=== PATIENT | female | born 1960 | race Caucasian/White ===

== ENCOUNTER 2025-04-22 02:51 | Inpatient (IN) | payer SELFPAY ==
--- OUTSIDE RECORDS SUMMARY | 2018-08-23 07:11 | XMS_ITS | Continuity of Care Document ---
Author Organization [facility] Address [address] [place] [address] Phone Care Team Providers Care Stationary Engineer Supervisor Name Role Phone Unavailable Unavailable Unavailable Medications Medication Instructions Dosage Effective Dates (start - stop) Status Comments doxycycline monohydrate 100 mg capsule take 1 capsule by oral route 2 times every day 100 MG - Active prednisone 10 mg tablet take 3 tablet by oral route every day 30 MG - Active lisinopril 20 mg tablet take 1 tablet by oral route every day 20 MG - Active amiodarone 200 mg tablet take 2 tablet by oral route every day 400 MG - Active AMLODIPINE BESYLATE (unknown strength) take 1 tablet by oral route every day Not Available - Active XARELTO (unknown strength) take 1 tablet by oral route 2 times every day Not Available - Active Procedures Procedure Date Offic/outpt E&m Estab Mod-hi 2 19 Services provided in an urgent care [facility] Office Visit 019 Ecg-routine 12 Lead; W/intrpt 7 Offic/outpt E&m Estab Mod-hi 2 17 Service(s) provided in the office during regularly Services provided in an urgent care [facility] Office Visit 017 Offic/outpt E&m Estab Low-mod 7 Rad Exam Chest 2 Views Front & 17 Offic/outpt E&m Estab Mod-hi 2 17 Services provided in an urgent care [facility] Office Visit 017 Offic/outpt E&m Estab Mod-hi 2 17 Services provided in an urgent care [facility] Office Visit 017 Offic/outpt E&m Estab Mod-hi 2 17 Services provided in an urgent care cent er [facility] Office Visit 017 Handl/convey Specmn-offic To L 17 Routine Venipunct/finger/heel 7 Offic/outpt E&m Estab Mod-hi 2 17 Services provided in an urgent care cent er [facility] Office Visit 017 Offic/outpt E&m Estab Mod-hi 2 16 Services provided in an urgent care [facility] Office Visit 016 Offic/outpt E&m Estab Mod-hi 2 16 [facility] Office Visit 016 Ecg-routine 12 Lead; W/intrpt 6 Offic/outpt E&m New Mod Sever 6 Services provided in an urgent care [facility] Office Visit 016 [facility] Indiviual Enrollment Advance Directives Directive Yes / No Effective Date File Name No Information Encounters Encounter Description Practice Location Reason(s) For Visit Diagnoses Date Provider Providers Copied on Encounter [facility], [address], [place], [place], [id number] , tel: [phone] [facility] No Information 9 No Information Offic/outpt E&m Estab Mod-hi 2 [facility], [address], [place], [place], [id number] , tel: [phone] [facility] sinus symptoms (chief complaint) ACUTE MAXILLARY SINUSITIS, UNSPECIFIED 9 Ronny Bennett. [address] [facility], [place], [address], [place]. tel:[phone] Offic/outpt E&m Estab Mod-hi 2 [facility], [address], [place], [place], [id number] , [place] tel: [phone] [facility] palpitations (chief complaint) Paroxysmal atrial fibrillationEl evated blood pressure readingSOB (shortness of breath)Elevate d blood pressure reading 7 Ronny Bennett. [address] [place] [address], [address], [place]. tel:[phone] Offic/outpt E&m Estab Low-mod [facility], [address], [place], [place], [id number] , [place] tel: [phone] [facility] cough (chief complaint) No Information 7 [facility]. [address] [place], [address], [place]. tel:[phone] Offic/outpt E&m Estab Mod-hi 2 [facility], [address], [place], [place], [address] , [place] tel: [phone] [facility] high blood pressure (chief complaint) ANXIETY DISORDER, UNSPECIFIED ANXIETY DISORDER TYPEESSENTIAL HYPERTENSION 7 No Information Offic/outpt E&m Estab Mod-hi 2 [facility], [address], [place], [place], [id number] , [place] tel: [phone] [facility] BP check (chief complaint) ESSENTIAL HYPERTENSION No Information Offic/outpt E&m Estab Mod-hi 2 [facility], [address], [place], [place], [id number] , [place] tel: [phone] [facility] high blood pressure (chief complaint) ANXIETY DISORDER, UNSPECIFIED ANXIETY DISORDER TYPEESSENTIAL HYPERTENSION 7 No Information Offic/outpt E&m Estab Mod-hi 2 [facility], [address], [place], [place], [id number] , [place] tel: [phone] [facility] high blood pressure (chief complaint) ANXIETY DISORDER, UNSPECIFIED ANXIETY DISORDER TYPEESSENTIAL HYPERTENSION 7 No Information Offic/outpt E&m Estab Mod-hi 2 [facility], [address], [place], [place], [address] , [place] tel:[phone] [facility] high blood pressure (chief complaint) ANXIETY DISORDER, UNSPECIFIED ANXIETY DISORDER TYPEESSENTIAL HYPERTENSIONHe art palpitations 6 No Information Offic/outpt E&m Estab Mod-hi 2 [facility], [address], [place], [place], [address] , [place] tel: [phone] [facility] No Information 6 No Information Offic/outpt E&m [facility], [address], [place], [place], [address] , [place] tel: [phone] [facility] palpitations (chief complaint) Heart palpitationsES SENTIAL HYPERTENSIONAN XIETY DISORDER, UNSPECIFIED ANXIETY DISORDER TYPE 6 No Information Family History Family Member Type Diagnosis Age At Onset Mother Problem (finding) Mother Problem (finding) hodgkins disease Payers Payer name Insurance type Covered alliance party ID Authoriza tisun(s) [facility] Advantage CI [id number] Social History Type Description Quantity Date Captured Comments Sex Female Smoking Status No Information Chief Complaint And Reason For Visit No Information Reason For Referral Reason For Referral No Information Plan Of Treatment Date Type Action Status Referral Ordered: Referral: Emergency Department. Assume care. Appointment date/timeframe: Today ordered Referral Referred To: Dr. Karyna guadalupe Ordered: Referral: Dr. Karyna paris Evaluate and treat. ordered History Of Present Illness Encounter Date Complaint History Of Prese nt Illness No Information Functional Status Date Functional Assessmen t No Information Instructions Date Instruction Additional Infor mation No Information Assessments Type Assessment Date No Information Patient Care Teams Name Effective Dates (start - stop) Status Members No Information
--- OUTSIDE RECORDS SUMMARY | 2018-08-23 07:11 | XMS_ITS | Continuity of Care Document ---
Author Organization [facility] Address [address] [place] [address] Phone Care Team Providers Care Medical Director Of Hospice Name Role Phone Unavailable Unavailable Unavailable Medications [...] 19 Services provided in an urgent care [facility] Office Visit 019 Ecg-routine 12 Lead; W/intrpt 7 Offic/outpt E&m Estab Mod-hi 2 17 Service(s) provided in the office during regularly Services provided in an urgent care [facility] Office Visit 017 Offic/outpt E&m Estab Low-mod 7 Rad Exam Chest 2 Views Front & 17 Offic/outpt E&m Estab Mod-hi 2 17 Services provided in an urgent care [facility] Office Visit 017 Offic/outpt E&m Estab Mod-hi 2 17 [facility] 017 Offic/outpt E&m Estab Mod-hi 2 17 Services provided in an urgent care cent er [facility] Office Visit 017 Handl/convey Specmn-offic To L 17 Routine Venipunct/finger/heel 7 Offic/outpt E&m Estab Mod-hi 2 17 Services provided in an urgent care cent er [facility] Office Visit 017 Offic/outpt E&m Estab Mod-hi 2 16 Services provided in an urgent care [facility] 016 Offic/outpt E&m Estab Mod-hi 2 16 [facility] Office Visit 016 Ecg-routine 12 Lead; W/intrpt 6 Offic/outpt E&m New Mod Sever 6 Services provided in an urgent care [facility] Office Visit 016 [facility] Indiviual Enrollment Advance Directives Directive Yes / No Effective Date File Name No Information Encounters Encounter Description Practice Location Reason(s) For Visit Diagnoses Date Provider Providers Copied on Encounter [facility], [address], [place], [place], [id number] , tel: [phone] [facility] No Information 9 No Information Offic/outpt E&m Estab Mod-hi 2 [facility], [address], [place], [place], [address] , tel: [phone] [facility] sinus symptoms (chief complaint) ACUTE MAXILLARY SINUSITIS, UNSPECIFIED 9 Ronny Bennett. [address] [facility], [place], [address], [place]. tel:[phone] Offic/outpt E&m Estab Mod-hi 2 [facility], [address], [place], [place], [id number] , [place] tel: [phone] [facility] palpitations (chief complaint) Paroxysmal atrial fibrillationEl evated blood pressure readingSOB (shortness of breath)Elevate d blood pressure reading 7 Ronny Bennett. [address] [place] [address], [address], [place]. tel:[phone] Offic/outpt E&m Estab Low-mod [facility], [address], [place], [place], [address] , [place] tel: [phone] [facility] cough (chief complaint) No Information 7 [facility]. [address] [place], [address], [place]. tel:[phone] Offic/outpt E&m Estab Mod-hi 2 [facility], [address], [place], [place], [address] , [place] tel: [phone] [facility] high blood pressure (chief complaint) ANXIETY DISORDER, UNSPECIFIED ANXIETY DISORDER TYPEESSENTIAL HYPERTENSION 7 No Information Offic/outpt E&m Estab Mod-hi 2 [facility], [address], [place], [place], [address] , [place] tel: [phone] [facility] BP check (chief complaint) ESSENTIAL HYPERTENSION No Information Offic/outpt E&m Estab Mod-hi 2 [facility], [address], [place], [place], [id number] , [place] tel: [phone] [facility] high blood pressure (chief complaint) ANXIETY DISORDER, UNSPECIFIED ANXIETY DISORDER TYPEESSENTIAL HYPERTENSION 7 No Information Offic/outpt E&m Estab Mod-hi 2 [facility], [address], [place], [place], [address] , [place] tel: [phone] [facility] high blood pressure (chief complaint) ANXIETY DISORDER, UNSPECIFIED ANXIETY DISORDER TYPEESSENTIAL HYPERTENSION 7 No Information Offic/outpt E&m Estab Mod-hi 2 [facility], [address], [place], [place], [address] , [place] tel:[phone] [facility] high blood pressure (chief complaint) ANXIETY DISORDER, UNSPECIFIED ANXIETY DISORDER TYPEESSENTIAL HYPERTENSIONHe art palpitations 6 No Information Offic/outpt E&m Estab Mod-hi 2 [facility], [address], [place], [place], [address] , [place] tel: [phone] [facility] No Information 6 No Information Offic/outpt E&m [facility], [address], [place], [place], [address] , [place] tel: [phone] [facility] palpitations (chief complaint) Heart palpitationsES SENTIAL HYPERTENSIONAN XIETY DISORDER, UNSPECIFIED ANXIETY DISORDER TYPE 6 No Information Family History Family Member Type Diagnosis Age At Onset Mother Problem (finding) hodgkins disease Mother Problem (finding) Payers Payer name Insurance type Covered democrat ID Authoriza tisun(s) [facility] Advantage CI [id number] Social History Type Description Quantity Date Captured [...]
--- OUTSIDE RECORDS SUMMARY | 2021-06-23 12:57 | XMS_ITS | Continuity of Care Document ---
Author Organization [facility] Address [address] [place] [address] Phone Care Team Providers Care Portable Machine Cutter Name Role Phone Rubens Méndez Unavailable Unavailable Allergies, Adverse Reactions, Alerts Substance Reaction Status Criticality No Known Allergies Active No Inform ation Medications Medication Instructions Dosage Effective Dates (start - stop) Status Comments LISINOPRIL (unknown strength) take 1 tablet by oral route every day Not Available - Active Procedures Procedure Date Quidel Sol 2 SARS Antigen BISI test Apr Offic/outpt E&m New Mod Sever 2 Services provided in an urgent care cent er Advance Directives Directive Yes / No Effective Date File Name No Information Encounters Encounter Description Practice Location Reason(s) For Visit Diagnoses Date Provider Providers Copied on Encounter [facility], [address], [place], [place], [id number], [place] tel:[phone] [facility] No Information 2 Drake Art. [address] [place], [address], [place]. tel:[phone] Offic/outpt E&m [facility], [address], [place], [place], [id number], [place] tel:[phone] [facility] Asymptomatic COVID evaluation (chief complaint) Contact with and (suspected) exposure to COVID-19 2 No Information Family History Family Member Type Diagnosis Age At Onset No Information Payers Payer name Insurance type Covered alliance party ID Authoriza tion(s) BCBS of [facility] [id number] Social History Type Description Quantity Date Captured Comments Alcohol Use Details Unknown Caffeine Use Details Unknown Tobacco Use Status No Information Smoking Status No Information Sex Female Chief Complaint And Reason For Visit No Information Reason For Referral Reason For Referral No Information Plan Of Treatment Date Type Action Status Future Order: Lab Order COVID-19 (Quidel Sol 2 SARS Antigen BISI test) ([id number]), Ordered on: Ordered History Of Present Illness Encounter Date Complaint History Of Prese nt Illness Asymptomatic COVID evaluation Co ntext: Known exposure to COVID-19 at work/school.She denies any presenting symptoms. The patient does not present with abdominal pain, anorexia, arthralgia, back pain, chills, cough, diarrhea, fatigue, fever, generalized weakness, headache, loss of smell, lymphadenopathy, myalgia, nasal congestion, nausea, runny nose, shortness of breath, sore throat, change in taste or vomiting. Risk factors include Hypertension but exclude Age > 65, BMI > 40, Diabetes. Denies relieving factors. Functional Status Date Functional Assessmen t No Information Instructions Date Instruction Additional Infor gris Plenty of fluids. Re turn for worsening symptoms including fever, back pain, nausea, vomiting. Related to Contact with and (suspected) exposure to COVID-19 Assessments Type Assessment Date No Information Patient Care Teams Name Effective Dates (start - stop) Status Members No Information
--- OUTSIDE RECORDS SUMMARY | 2021-06-23 12:57 | XMS_ITS | Continuity of Care Document ---
Author Organization [facility] Address [address] [place] [address] Phone Care Team Providers Care Pyrotechnics Press Tender Name Role Phone Rubens Méndez Unavailable Unavailable [...] [facility], [address], [place], [place], [id number], [place] tel:[phone] [facility] No Information 2 [address] [place], [address], [place]. tel:[phone] Offic/outpt E&m [facility], [address], [place], [place], [id number], [place] tel:[phone] [facility] Asymptomatic COVID evaluation (chief complaint) Contact with and (suspected) exposure to COVID-19 2 No Information Family History Family Member Type Diagnosis Age At Onset No Information Payers Payer name Insurance type Covered republican ID Authoriza tion(s) BCBS of [facility] [id number] Social History Type Description Quantity Date Captured Comments Alcohol Use Details Unknown Caffeine Use Details Unknown Tobacco Use Status No Information Smoking Status No Information Sex Female Chief Complaint And Reason For Visit No Information Reason For Referral Reason For Referral No Information Plan Of Treatment Date Type Action Status Future Order: Lab Order COVID-19 (Quidel Sol 2 SARS Antigen BISI test) ([id number]), Ordered on: Ordered History Of Present Illness [...]
--- OUTSIDE RECORDS SUMMARY | 2024-01-16 04:45 | XMS_ITS ---
Author [facility] Address [address] [facility] [address] [place], [place] [id number] Care Team Providers Care Insurance Consultant Name Role Phone Wilson Leahy Unavailable [phone] Allergies No Known Allergies Results Component Value Reference Range Notes P-Comprehensive Metabolic Pa alexey (CMP) Reviewed date:01/17/2024 08:24:21 AM Interpretation:gluc 113 Performing Lab: Notes/Report: Test performed by [facility] [address] , [address], [place] [address] Jigar Darling MD, [place] CLIA: [id number] Sodium 143 135-145 mmol/L Potassium 4.1 3.5-5.3 mmol/L Chloride 106 97-108 mmol/L CO2 26 22-32 mmol/L Glucose 113 65-99 mg/dL BUN 22 8-23 mg/dL Creatinine 0.78 0.50-1.00 mg/dL Calcium 9.2 8.6-10.4 mg/dL eGFR by Creatinine 85 >59 mL/min/1.73m2 Protein 7.0 6.0-8.3 g/dL Albumin 4.2 3.5-5.3 g/dL Alkaline Phosphatase 99 35-121 IU/L ALT (SGPT) 22 <5-47 IU/L AST (SGOT) 13 <5-40 IU/L Bilirubin, Total 0.5 <0.2-1.2 mg/dL A/G Ratio 1.5 1.1-2.5 P-Lipid Panel Reviewed date:01/17/2024 08:24:21 AM Interpretation:trigs 155, non-hdl 134 Performing Lab: Notes/Report: Test performed by [facility] [address] [facility] , [address], [place] [address] Jigar Darling MD, [place] CLIA: [id number] Cholesterol 179 <200 mg/dL Triglycerides 155 <150 mg/dL HDL Cholesterol 45 >39 mg/dL Cholesterol / HDL Ratio 3.98 0.00-4.44 Ratio Non-HDL Cholesterol 134 <130 mg/dL LDL Cholesterol (Calculation) 103 <130 mg/dL LDL Cholesterol Levels* Less than 100 mg/dL Optimal 100 to 129 mg/dL Near Optimal/ Above Optimal 130 to 159 mg/dL Borderline High 160 to 189 mg/dL High 190 mg/dL and above Very High * Categories as recommended by the 2004 ATPIII guidelines LDL/HDL Ratio 2.3 <3.3 Ratio LDL Cholesterol Patient History Test Date: 07/17/2022 LDL Results: 168 Units: mg/dL % Change: - Test Date: 01/16/2024 LDL Results: 103 Units: mg/dL % Change: -38% REASON FOR VISIT 6 months Medications Medication SIG (Take, Route, Frequency, Duration) Notes Start Date End Date Status Atorvastatin Calcium 40 MG 1 tab(s) oral ly once a day 08/25/2022 Active dilTIAZem HCl ER 240 MG 1 cap(s) orally once a day 07/17/2022 Active Lisinopril 20 MG 1 tab(s) orally once a day Active Aspirin 81 MG 1 tab(s) orally once a day Active Vital Signs Weight 239.8 lbs 01/16/2024 Blood pressure systolic 144 mm Hg 01/16/20 24 Blood pressure diastolic 90 mm Hg 024 Heart Rate 96 /min 01/16/2024 Height 64 in 01/16/2024 BMI 41.16 kg/m2 01/16/2024 Encounters Encounter Location Date Provider Diagnosis [facility] [address] [facility] [address] [facility] [address] [place], [place] [id number] 01/16/2024 Wilson Leahy Primary hypertension I10 ; Hyperlipidemia LDL goal <130 E78.5 and Atrial fibrillation, unspecified type I48.91 Assessments Encounter Date Diagnosis (ICD Code) Assessment Notes Treatment Notes Treatment Clinical Notes Section Notes 01/16/2024 Primary hypertension (ICD-10 - I10) 01/16/2024 Hyperlipidemia LDL goal <130 (ICD-10 - E78.5) 01/16/2024 Atrial fibrillation, unspecified type (ICD-10 - I48.91) Plan Of Treatment Medication Medication Name Sig Start Date Stop Date Notes Atorvastatin Calcium 40 MG 1 tab(s) orally once a day 07/30 dilTIAZem HCl ER 240 MG 1 cap(s) orally once a day 023 Lisinopril 20 MG 1 tab(s) orally once a day Aspirin 81 MG 1 tab(s) orally once a day Next Appt Details Follow Up: 6 Months, Reason: Provider Name:Wilson valente, 07/14/2025 09:00:00 AM, [address] [facility] 36 [facility], [address], [place], [id number], Progress Notes * ROXANA PHAN:[birth year] (64 yo F)Acc No.[id number]:01/16/2024 Progress Notes Patient: ELVI OHARA Provider: Jimmy Leahy M.D. :1960 A ge:63 Y S ex:Female Date:01/16/2024 [id number] Subjective: * Chief Complaints: * 1 . 6 months. * HPI: C ardiology: 63 year old female presents with c/o Blood Pressure Elevated?Pt here for 6 mo f/u on hypertension, states she is doing well and does not have concerns. c/o Hyperlipidemia P t is fasting today. * ROS: D ERMATOLOGY: no R jorge. n o H zan. G ASTROENTEROLOGY: no N ausea. n o V omiting. U ROLOGY: no D ifficulty urinating. n o B lood in urine. * Medical History: H ypertension, Atrial fibrillation, 2016, uses Aspirin for anticoagulation, Hiatal Hernia, 08/2021, Fibroids, Kidney stones, Renal Cell Cancer, 25 pack year smoking history as of 2022, quit in 2012, Hyperlipidemia, Osteoarthritis. * Surgical History: P artial Nephrectomy , Incisional Hernia Repair , Colonoscopy . * Hospitalization/Major Diagno stic Procedure: D enies Past Hospitalization. * Family History: M other: diagnosed with Hypertension, Cancer. 2 brother(s) . 2 son(s) , 1 daughter(s) . .? * Social History: C URRENT TOBACCO USE: No . C affeine: yes, frequency: 1 daily. Alcohol: no. * Medications: T aking Aspirin 81 MG Tablet Delayed Release 1 tab(s) orally once a day , Taking Lisinopril 20 MG Tablet 1 tab(s) orally once a day , Taking dilTIAZem HCl ER 240 MG Capsule Extended Release 24 Hour 1 cap(s) orally once a day , Taking Atorvastatin Calcium 40 MG Tablet 1 tab(s) orally once a day , Medication List reviewed and reconciled with the patient * Allergies: N .K.D.A. Objective: * Vitals: W t:239.8, Temp:98.0, BP:144/90, HR:96, Nurse:brock, Ht: 64, BMI:41.16. * Examination: C ardiology: General Appearance: p leasant, NAD. H eart sounds: R RR. L ungs: c lear, no rales or wheezes. P eripheral pulses: 2 plus bilateral.? Assessment: * Assessment: 1. P rimary hypertension - I10 (Primary) 2 . H yperlipidemia LDL goal <130 - E78.5 3 . A trial fibrillation, unspecified type - I48.91 Plan: * Treatment: Value Reference Range A /G Ratio 1.5 1.1-2.5 - * A lbumin 4.2 3.5-5.3 - g/dL * A lkaline Phosphatase 99 35-121 - IU/L * A LT (SGPT) 22 <5-47 - IU/L * A ST (SGOT) 13 <5-40 - IU/L * B ilirubin, Total 0.5 <0.2-1.2 - mg/dL * B UN 22 8-23 - mg/dL * C alcium 9.2 8.6-10.4 - mg/dL * C hloride 106 97-108 - mmol/L * C O2 26 22-32 - mmol/L * C reatinine 0.78 0.50-1.00 - mg/dL * G lucose 113 H 65-99 - mg/dL * P otassium 4.1 3.5-5.3 - mmol/L * S odium 143 135-145 - mmol/L * P rotein 7.0 6.0-8.3 - g/dL * e GFR by Creatinine 85 >59 - mL/min/1.73m2 * Jenifer Menjivar 01/17/2024 8:24: 12 AM >See phone encounter ?LAB: P-Lipid Panel (Collection Date & Time - 01/16/2024 09:10 AM)?trigs 155, non-hdl 134* Value Reference Range C holesterol / HDL Ratio 3.98 0.00-4.44 - Ratio * C holesterol 179 <200 - mg/dL * H DL Cholesterol 45 >39 - mg/dL * L DL Cholesterol (Calculation) 103 <130 - mg/d L * L DL/HDL Ratio 2.3 <3.3 - Ratio * N on-HDL Cholesterol 134 H <130 - mg/dL * T riglycerides 155 H <150 - mg/dL * Jenifer Menjivar 01/17/2024 8:24: 12 AM >See phone encounter 2.?Hyperlipidemia LDL goal <130? Continue Atorvastatin Calcium Tablet, 40 MG, 1 tab(s), orally, once a day.?LAB: P-Comprehensive Metabolic Panel (CMP) (Collection Date & Time - 01/16/2024 09:10 AM)?gluc 113* Value Reference Range A /G Ratio 1.5 1.1-2.5 - * A lbumin 4.2 3.5-5.3 - g/dL * A lkaline Phosphatase 99 35-121 - IU/L * A LT (SGPT) 22 <5-47 - IU/L * A ST (SGOT) 13 <5-40 - IU/L * B ilirubin, Total 0.5 <0.2-1.2 - mg/dL * B UN 22 8-23 - mg/dL * C alcium 9.2 8.6-10.4 - mg/dL * C hloride 106 97-108 - mmol/L * C O2 26 22-32 - mmol/L * C reatinine 0.78 0.50-1.00 - mg/dL * G lucose 113 H 65-99 - mg/dL * P otassium 4.1 3.5-5.3 - mmol/L * S odium 143 135-145 - mmol/L * P rotein 7.0 6.0-8.3 - g/dL * e GFR by Creatinine 85 >59 - mL/min/1.73m2 * OttoJenifer 01/17/2024 8:24: 12 AM >See phone encounter ?LAB: P-Lipid Panel (Collection Date & Time - 01/16/2024 09:10 AM)?trigs 155, non-hdl 134* Value Reference Range C holesterol / HDL Ratio 3.98 0.00-4.44 - Ratio * C holesterol 179 <200 - mg/dL * H DL Cholesterol 45 >39 - mg/dL * L DL Cholesterol (Calculation) 103 <130 - mg/d L * L DL/HDL Ratio 2.3 <3.3 - Ratio * N on-HDL Cholesterol 134 H <130 - mg/dL * T riglycerides 155 H <150 - mg/dL * Jenifer Menjivar 01/17/2024 8:24: 12 AM >See phone encounter 3.?Atrial fibrillation, unspecified type? Continue dilTIAZem HCl ER Capsule Extended Release 24 Hour, 240 MG, 1 cap(s), orally, once a day; Continue Aspirin Tablet Delayed Release, 81 MG, 1 tab(s), orally, once a day.?? * Follow Up: 6 Months * Images: Billing Information: * Visit Code: [id number] Office Visit, Est Pt., Level 2. * Procedure Codes: * Electronic signature of Ashley Leahy MD on 04/22/2025 at 04:54 AM EST Sign off status: Pending * Provider: Jimmy Leahy M.D. Date: 0 01/16/2024 Generated for Darnell smiley/Lexus/Malaitting on: 1 06/23/2024 04:54 AM EST History and Physical Notes * HPI (History of Present Illness) Category Sub-Category Detail Notes Category Not es Cardiology Blood Pressure Elevated Pt here for 6 mo f/u on hypertension, states she is doing well and does not have concerns Hyperlipidemia Pt is fasting today Examination Category Sub-Category Detail Notes Category Not es Cardiology Lungs: clear, no rales or wheezes Heart sounds: RRR Peripheral pulses: 2 plus bilateral General Appearance: pleasant, NAD
--- OUTSIDE RECORDS SUMMARY | 2024-07-16 04:30 | XMS_ITS ---
Author Organization [place] Address [address] [facility] [address] [place] [id number] Care Team Providers Care Food Service Substitute Name Role Phone [place], Wilson Unavailable [phone] Allergies No Known Allergies REASON FOR VISIT 6 months Medications Medication SIG (Take, Route, Frequency, Duration) Notes Start Date End Date Status Lisinopril 20 MG 1 tab(s) orally once a day; Duration: 90 days Active dilTIAZem HCl ER 240 MG 1 cap(s) orally once a day; Duration: 90 days Active Atorvastatin Calcium 40 MG 1 tab(s) oral ly once a day; Duration: 90 days Active Aspirin 81 MG 1 tab(s) orally once a day Active Vital Signs Weight 241.6 lbs 07/16/2024 Blood pressure systolic 140 mm Hg 07/17/19 25 Blood pressure diastolic 90 mm Hg 025 Heart Rate 93 /min 07/16/2024 Height 64 in 07/16/2024 BMI 41.47 kg/m2 07/16/2024 Encounters Encounter Location Date Provider Diagnosis [facility] [address] [facility] [address] [place] [id number] 07/16/2024 Wilson Leahy Primary hypertension I10 ; Hyperlipidemia LDL goal <130 E78.5 ; Atrial fibrillation, unspecified type I48.91 and Snoring R06.83 Assessments Encounter Date Diagnosis (ICD Code) Assessment Notes Treatment Notes Treatment Clinical Notes Section Notes 07/16/2024 Primary hypertension (ICD-10 - I10) 07/16/2024 Hyperlipidemia LDL goal <130 (ICD-10 - E78.5) 07/16/2024 Atrial fibrillation, unspecified type (ICD-10 - I48.91) 07/16/2024 Snoring (ICD-10 - R06.83) Patient does not want to have a new sleep study now, would like to see report of previous study Plan Of Treatment Medication Medication Name Sig Start Date Stop Date Notes Lisinopril 20 MG 1 tab(s) orally once a day; Duration: 90 days dilTIAZem HCl ER 240 MG 1 cap(s) orally once a day; Duration: 90 days Atorvastatin Calcium 40 MG 1 tab(s) oral ly once a day; Duration: 90 days Treatment Notes Assessment Notes Snoring Patient does not wan t to have a new sleep study now, would like to see report of previous study Next Appt Details Follow Up: 6 Months fasting, Reason: Provider Name:Wilson Womack , 07/14/2025 09:00:00 AM, [address] [facility], [address] , [place], [place], [id number], Progress Notes * ELVI PHANDOB:[birth year] (64 yo F)Acc No.[id number]:07/16/2024 Progress Notes Patient: [place] QUENTIN ELVI Provider: Jimmy Leahy M.D. :1960 A ge:64 Y S ex:Female Date:07/16/2024 Address:[address] [place], [place] [id number] Subjective: * Chief Complaints: * 1 . 6 months. * HPI: C ardiology: 64 year old female presents with c/o Blood Pressure Elevated?Pt here for 6 mo f/u on hypertension, states she is doing well and does not have any concerns.? c/o Hyperlipidemia P t is fasting today. * ROS: D ERMATOLOGY: no R jorge. n o H zan. G ASTROENTEROLOGY: no N ausea. n o V omiting. P SYCHOLOGY: Sleep disturbances y es, s nores, thinks she may have sleep apnea, had a sleep study when she lived in [place]. U ROLOGY: no D ifficulty urinating. n o B lood in urine. * Medical History: H ypertension, Atrial fibrillation, 2017, uses Aspirin for anticoagulation, Hiatal Hernia, 08/2021, [...] cap(s) orally once a day , Taking Lisinopril 20 MG Tablet 1 tab(s) orally once a day , Taking Atorvastatin Calcium 40 MG Tablet 1 tab(s) orally once a day , Medication List reviewed and reconciled with the patient * Allergies: N .K.D.A. Objective: * Vitals: W t:241.6, Temp:98.0, BP:140/90, HR:93, Nurse:brock, Ht: 64, BMI:41.47. * Examination: C ardiology: General Appearance: p leasant, NAD. H eart sounds: R RR. L ungs: c lear, no rales or wheezes. P eripheral pulses: 2 plus bilateral.? Assessment: * Assessment: 1. P rimary hypertension - I10 (Primary) 2 . H yperlipidemia LDL goal <130 - E78.5 3 . A trial fibrillation, unspecified type - I48.91 4 . S felix - R06.83 Plan: * Treatment: 2. H yperlipidemia LDL goal <130 Refill Atorvastatin Calcium Tablet, 40 MG, 1 tab(s), orally, once a day, 90 days, 90 Tablet, Refills 1. 3. A trial fibrillation, unspecified type Refill dilTIAZem HCl ER Capsule Extended Release 24 Hour, 240 MG, 1 cap(s), orally, once a day, 90 days, 90 Capsule, Refills 1. 4. S felix Notes: Patient does not want to have a new sleep study now, would like to see report of previous study * Follow Up: 6 Months fasting * Images: Billing Information: * Visit Code: [id number] Office Visit, Est Pt., Level 2. * Procedure Codes: * Electronic signature of Ashley Leahy MD on 04/22/2025 at 04:55 AM EST Sign off status: Pending * Provider: Jimmy Leahy M.D. Date: 0 07/16/2024 Generated for Darnell smiley/Lexus/Malaitting on: 06/23/2024 04:55 AM EST History and Physical Notes * HPI (History of Present Illness) Category Sub-Category Detail Notes Category Not es Cardiology Blood Pressure Elevated Pt here for 6 mo f/u on hypertension, states she is doing well and does not have any concerns Hyperlipidemia Pt is fasting today Examination Category Sub-Category Detail Notes Category Not es Cardiology Lungs: clear, no rales or wheezes Heart sounds: RRR Peripheral pulses: 2 plus bilateral General Appearance: pleasant, NAD
--- OUTSIDE RECORDS SUMMARY | 2025-01-12 05:45 | XMS_ITS ---
Author Organization [facility] Address [address] [facility] [address] [place], [place] [id number] Care Team Providers Care Esl Instructor Name Role Phone Wilson Leahy Unavailable [phone] Allergies No Known Allergies Results Component Value Reference Range Notes P-Comprehensive Metabolic Pa alexey (CMP) Reviewed date:01/13/2025 12:35:44 PM Interpretation:cl 109, gluc 104 Performing Lab: Notes/Report: Test performed by [email or web address] [address] , [address], [place] [address] Jigar Darling MD, Customs Import Specialist CLIA: [id number] Sodium 144 135-145 mmol/L Potassium 4.1 3.5-5.3 mmol/L Chloride 109 97-108 mmol/L CO2 23 20-32 mmol/L Glucose 104 65-99 mg/dL BUN 20 8-23 mg/dL Creatinine 0.80 0.50-1.00 mg/dL Calcium 9.6 8.6-10.4 mg/dL eGFR by Creatinine 82 >59 mL/min/1.73m2 Protein 7.2 6.0-8.3 g/dL Albumin 4.4 3.5-5.3 g/dL Alkaline Phosphatase 105 35-121 IU/L ALT (SGPT) 27 <5-47 IU/L AST (SGOT) 19 <5-40 IU/L Bilirubin, Total 0.4 <0.2-1.2 mg/dL A/G Ratio 1.6 1.1-2.5 P-Lipid Panel Reviewed date:01/13/2025 12:35:44 PM Interpretation:trigs 168, non-hdl 145 Performing Lab: Notes/Report: Test performed by [facility] [address] [place] [address] , [address], [place] [address] Jigar Darling MD, Customs Import Specialist CLIA: [id number] Cholesterol 194 <200 mg/dL Triglycerides 168 <150 mg/dL HDL Cholesterol 49 >39 mg/dL Cholesterol / HDL Ratio 3.96 0.00-4.44 Ratio Non-HDL Cholesterol 145 <130 mg/dL LDL Cholesterol (Calculation) 111 <130 mg/dL LDL Cholesterol Levels* Less than 100 mg/dL Optimal 100 to 129 mg/dL Near Optimal/ Above Optimal 130 to 159 mg/dL Borderline High 160 to 189 mg/dL High 190 mg/dL and above Very High * Categories as recommended by the 2004 ATPIII guidelines LDL/HDL Ratio 2.3 <3.3 Ratio Test Date: 07/17/2022 LDL Results: 168 Units: mg/dL % Change: - Test Date: 01/16/2024 LDL Results: 103 Units: mg/dL % Change: -38% Test Date: 01/12/2025 LDL Results: 111 Units: mg/dL % Change: +7% LDL Cholesterol Patient History REASON FOR VISIT 6 month fasting checkup Medications Medication SIG (Take, Route, Frequency, Duration) Notes Start Date End Date Status Lisinopril 20 MG 1 tab(s) orally once a day; Duration: 90 days Active dilTIAZem HCl ER 240 MG 1 cap(s) orally once a day; Duration: 90 days Active Aspirin 81 MG 1 tab(s) orally once a day Not-Taking Atorvastatin Calcium 40 MG 1 tab(s) orally once a day; Duration: 90 days Active Problems Problem Type SNOMED Code ICD Code Onset Dates Problem Status W/U Status Risk Notes Problem Abnormal mammogram ([id number]) Abnormal mammogram (R92.8) Active confirmed Vital Signs Weight 240.6 lbs 01/12/2025 Blood pressure systolic 140 mm Hg 01/13/20 25 Blood pressure diastolic 80 mm Hg 025 Heart Rate 83 /min 01/12/2025 Height 64 in 01/12/2025 BMI 41.29 kg/m2 01/12/2025 Encounters Encounter Location Date Provider [facility] [address] [place] [id number] 01/12/2025 Wilson Leahy Primary hypertension I10 ; Atrial fibrillation, unspecified type I48.91 ; Hyperlipidemia LDL goal <130 E78.5 and Abnormal mammogram R92.8 Assessments Encounter Date Diagnosis (ICD Code) Assessment Notes Treatment Notes Treatment Clinical Notes Section Notes 01/12/2025 Primary hypertension (ICD-10 - I10) 01/12/2025 Atrial fibrillation, unspecified type (ICD-10 - I48.91) 01/12/2025 Hyperlipidemia LDL goal <130 (ICD-10 - E78.5) 01/12/2025 Abnormal mammogram (ICD-10 - R92.8) Patient has a breast biopsy scheduled at [facility] next week Plan Of Treatment Medication Medication Name Sig Start Date Stop Date Notes Lisinopril 20 MG 1 tab(s) orally once a day; Duration: 90 days dilTIAZem HCl ER 240 MG 1 cap(s) orally once a day; Duration: 90 days Treatment Notes Assessment Notes Abnormal mammogram Patient has a breast biopsy scheduled at [facility] next week Next Appt Details Follow Up: 6 Months, Reason: Provider Name:Wilson Womack ry, 07/14/2025 09:00:00 AM, [address], [address], [place], [place], [id number], Progress Notes * EMILIEELVIDOB:[birth year] (64 yo F)Acc No.[id number]:01/12/2025 Progress Notes Patient: ELVI OHARA Provider: Jimmy Leahy M.D. :1960 A ge:64 Y S ex:Female Date:01/12/2025 Address:[address] [place], [place] [phone] Subjective: * Chief Complaints: * 1 . 6 month fasting checkup. * HPI: C ardiology: 64 year old female presents with c/o Blood Pressure Elevated?Pt here for 6 month follow up on Hypertension. Pt states she is doing well and has no new concerns. c/o Hyperlipidemia P t is fasting [...] * Family History: M other: diagnosed with Cancer, Hypertension. 2 brother(s) . 2 son(s) , 1 daughter(s) . .? * Social History: C URRENT TOBACCO USE: No . C affeine: yes, frequency: 1 daily. Alcohol: no. * Medications: T aking Lisinopril 20 MG Tablet 1 tab(s) orally once a day , Taking dilTIAZem HCl ER 240 MG Capsule Extended Release 24 Hour 1 cap(s) orally once a day , Taking Atorvastatin Calcium 40 MG Tablet 1 tab(s) orally once a day , Not-Taking Aspirin 81 MG Tablet Delayed Release 1 tab(s) orally once a day , Medication List reviewed and reconciled with the patient * Allergies: N .K.D.A. Objective: * Vitals: W t: 240.6, Temp: 98.0, BP: 140/80, HR: 83, Nurse: MALACHI, Ht: 64, BMI:41.29. * Examination: C ardiology: General Appearance: p leasant, NAD. H eart sounds: R RR. L ungs: c lear, no rales or wheezes. P eripheral pulses: 2 plus bilateral.? Assessment: * Assessment: 1. P rimary hypertension - I10 (Primary) 2 . A trial fibrillation, unspecified type - I48.91 3 . H yperlipidemia LDL goal <130 - E78.5 4 . A bnormal mammogram - R92.8 Plan: * Treatment: Value Reference Range A /G Ratio 1.6 1.1-2.5 - * A lbumin 4.4 3.5-5.3 - g/dL * A lkaline Phosphatase 105 35-121 - IU/L * A LT (SGPT) 27 <5-47 - IU/L * A ST (SGOT) 19 <5-40 - IU/L * B ilirubin, Total 0.4 <0.2-1.2 - mg/dL * B UN 20 8-23 - mg/dL * C alcium 9.6 8.6-10.4 - mg/dL * C hloride 109 H 97-108 - mmol/L * C O2 23 20-32 - mmol/L * C reatinine 0.80 0.50-1.00 - mg/dL * G lucose 104 H 65-99 - mg/dL * P otassium 4.1 3.5-5.3 - mmol/L * S odium 144 135-145 - mmol/L * P rotein 7.2 6.0-8.3 - g/dL * e GFR by Creatinine 82 >59 - mL/min/1.73m2 * Rosanne Priest 01/13/2025 12: 35:38 PM EDT > See phone encounter 2.?Atrial fibrillation, unspecified type? Refill dilTIAZem HCl ER Capsule Extended Release 24 Hour, 240 MG, 1 cap(s), orally, once a day, 90 days, 90, Refills 1.??3.?Hyperlipidemia LDL goal <130?LAB: P-Comprehensive Metabolic Panel (CMP) (Collection Date & Time - 01/12/2025 10:29 AM)?cl 109, gluc 104* Value Reference Range A /G Ratio 1.6 1.1-2.5 - * A lbumin 4.4 3.5-5.3 - g/dL * A lkaline Phosphatase 105 35-121 - IU/L * A LT (SGPT) 27 <5-47 - IU/L * A ST (SGOT) 19 <5-40 - IU/L * B ilirubin, Total 0.4 <0.2-1.2 - mg/dL * B UN 20 8-23 - mg/dL * C alcium 9.6 8.6-10.4 - mg/dL * C hloride 109 H 97-108 - mmol/L * C O2 23 20-32 - mmol/L * C reatinine 0.80 0.50-1.00 - mg/dL * G lucose 104 H 65-99 - mg/dL * P otassium 4.1 3.5-5.3 - mmol/L * S odium 144 135-145 - mmol/L * P rotein 7.2 6.0-8.3 - g/dL * e GFR by Creatinine 82 >59 - mL/min/1.73m2 * Rosanne Priest 01/13/2025 12: 35:38 PM EDT > See phone encounter ?LAB: P-Lipid Panel (Collection Date & Time - 01/12/2025 10:29 AM)?trigs 168, non-hdl 145* Value Reference Range C holesterol / HDL Ratio 3.96 0.00-4.44 - Ratio * C holesterol 194 <200 - mg/dL * H DL Cholesterol 49 >39 - mg/dL * L DL Cholesterol (Calculation) 111 <130 - mg/d L * L DL/HDL Ratio 2.3 <3.3 - Ratio * N on-HDL Cholesterol 145 H <130 - mg/dL * T riglycerides 168 H <150 - mg/dL * Rosanne Priest 01/13/2025 12: 35:38 PM EDT > See phone encounter 4.?Abnormal mammogram? Notes: Patient has a breast biopsy scheduled at [facility] next week?? * Follow Up: 6 Months * Images: Billing Information: * Visit Code: [id number] Office Visit, Est Pt., Level 2. * Procedure Codes: * Electronic signature of Ashley Leahy MD on 04/22/2025 at 04:55 AM EST Sign off status: Pending * Provider: Jimmy Leahy M.D. Date: 0 01/12/2025 Generated for Darnell smiley/Lexus/Harjeet on: 1 06/23/2024 04:55 AM EST History and Physical Notes * HPI (History of Present Illness) Category Sub-Category Detail Notes Category Not es Cardiology Blood Pressure Elevated Pt here for 6 month follow up on Hypertension. Pt states she is doing well and has no new concerns Hyperlipidemia Pt is fasting today Examination Category Sub-Category Detail Notes Category Not es Cardiology Lungs: clear, no rales or wheezes Heart sounds: RRR Peripheral pulses: 2 plus bilateral General Appearance: pleasant, NAD
--- OUTSIDE RECORDS SUMMARY | 2025-02-05 05:30 | XMS_ITS ---
Author Organization [facility] Address [address] [facility] [address] [place] [id number] Care Team Providers Care Dieing Out Machine Operator Name Role Phone [place], Wilson Unavailable [phone] Allergies No Known Allergies Results Component Value Reference Range Notes Urinalysis - Inhouse Reviewed date:02/05/2025 12:08:10 PM Interpretation: Performing Lab: Notes/Report: Color/Clarity cloudy yellow Leuk 3+ Nitrite pos Urobili 3.2 Protein 2+ pH 7.0 Blood 1+ Sp. Gr. 1.020 Ketone neg Bili neg Gluc neg REASON FOR VISIT UA Medications Medication SIG (Take, Route, Frequency, Duration) Notes Start Date End Date Status Lisinopril 20 MG 1 tab(s) orally once a day; Duration: 90 days Active Atorvastatin Calcium 40 MG 1 tab(s) orally once a day; Duration: 90 days Active Aspirin 81 MG 1 tab(s) orally once a day Not-Taking dilTIAZem HCl ER 240 MG 1 cap(s) orally once a day; Duration: 90 days Active Macrobid 100 MG 1 capsule with food Orally every 12 hrs; Duration: 5 days 02/05/2025 Active Encounters Encounter Location Date Provider Diagnosis [facility] [address] [place] [id number] 02/05/2025 Wilson Leahy Acute UTI N39.0 Assessments Encounter Date Diagnosis (ICD Code) Assessment Notes Treatment Notes Treatment Clinical Notes Section Notes 02/05/2025 Acute UTI (ICD-10 - N39.0) Plan Of Treatment Medication Medication Name Sig Start Date Stop Date Notes Macrobid 100 MG 1 capsule with food Orally every 12 hrs; Duration: 5 days 02/05/2025 Next Appt Details Provider Name:Wilson Womack ry, 07/14/2025 09:00:00 AM, [address], [address], [place], [place], [id number], Progress Notes * ELVI PHANDOB:[birth year] (64 yo F)Acc No.[id number]:02/05/2025 Patient: ELVI OHARA Provider: Jimmy Leahy M.D. :1960 A ge:64 Y S ex:Female Date:02/05/2025 Address:[address] [place], [place] [id number] Subjective: * Chief Complaints: * 1 . UA. * ROS: D ERMATOLOGY: no R jorge. [...] 2022, quit in 2012, Hyperlipidemia, Osteoarthritis. * Medications: T aking Atorvastatin Calcium 40 MG Tablet 1 tab(s) orally once a day , Taking Lisinopril 20 MG Tablet 1 tab(s) orally once a day , Taking dilTIAZem HCl ER 240 MG Capsule Extended Release 24 Hour 1 cap(s) orally once a day , Not-Taking Aspirin 81 MG Tablet Delayed Release 1 tab(s) orally once a day , Medication List reviewed and reconciled with the patient * Allergies: N .K.D.A. Objective: * Vitals: Assessment: * Assessment: 1. A cute UTI - N39.0 (Primary) Plan: * Treatment: Value Reference Range C olor/Clarity cloudy yellow * L euk 3+ * N itrite pos * U robili 3.2 * P rotein 2+ * p H 7.0 * B lood 1+ * S p. Gr. 1.020 * K etone neg * B broderick neg * G soo neg * Caty Cee 02/05/2025 10:2 9:58 AM EDT > Provider reviewed results while patient in office. * Procedure Codes: 8 1002 Urinalysis, no micro * Images: Billing Information: * Visit Code: * Procedure Codes: 83573 Urinalysis, no micro. * Electronic signature of Ashley Leahy MD on 04/22/2025 at 04:55 AM EST Sign off status: Pending * Provider: Jimmy Leahy M.D. Date: 1 Generated for Darnell smiley/Lexus/Malaitting on: 1 06/23/2024 04:55 AM EST
--- OUTSIDE RECORDS SUMMARY | 2025-02-23 12:58 | XMS_ITS | Encounter Summary ---
Author [place] [address] Care Team Providers Care Color Checker Name Role Phone Idania Cobb RN Unavailable Maxx Khan MD Unavailable [phone] Obdulia Mazariegos RN Unavailable Unavailable Reason for Referral * MRI/CAT Scan (Emergency) - Authorization Not Needed Specialty Diagnoses / Procedures Referred By Contac t Referred To Contact Radiology Diagnoses Invasive ductal carcinoma of right breast, stage 4 (HCC) Procedures MRI COMPLETE SPINAL SCREENING W WO CONTRAST Maxx Khan MD [address] [place] [address] [place] [address] Phone: tel: fax: [facility] [place] [address] Phone: tel: fax: Referral ID Status Reason Start Date Expiration Date Visits Requested Visits Authorized [id number] Authorization Not Needed 02/18/2026 1 1 Reason for Visit * MRI/CAT Scan (Emergency) - Authorization Not Needed Specialty Diagnoses / Procedures Referred By Contac t Referred To Contact Radiology Diagnoses Invasive ductal carcinoma of right breast, stage 4 (HCC) Procedures MRI COMPLETE SPINAL SCREENING W WO CONTRAST Maxx Khan MD [address] [place] [address] [place] [address] Phone: tel: fax: [facility] [place] [address] Phone: tel: fax: Referral ID Status Reason Start Date Expiration Date Visits Requested Visits Authorized [id number] Authorization Not Needed 02/18/2026 1 1 Encounter Details Date Type Department Care Team (Latest Contact Info) Description 02/23/2025 1:58 PM EDT - 02/23/2025 11:59 PM EDT Hospital Encounter [facility] MRI [address] [place] [address] Maxx Khan MD [facility] [place] [address] Invasive ductal carcinoma of right breast, stage 4 (HCC) Discharge Disposition: Home or Self Care Social History Tobacco Use Types Packs/Day Years Used Date Smoking Tobacco: Former Cigarettes Q uit: 2012 Smokeless Tobacco: Never Alcohol Use Standard Drinks/Week Comments Never 0 (1 standard drink = 0.6 oz pur e alcohol) PHQ-2 Answer Date Recorded PHQ-2 Total Score 0 02/18/2025 Comments No Sex and Gender Information Value Date Recorded Sex Assigned at Not on file Legal Sex Female 6:43 PM EDT Gender Identity Not on file Sexual Orientation Not on file documented as of this encounter Medications at Time of Discharge aspirin 81 mg Oral Tablet, Delayed Release (E.C.) Take 81 mg by mouth daily. atorvastatin (LIPITOR) 40 mg Oral Tablet Take 40 mg by mouth daily. DILT-XR 240 mg Oral Capsule,Degradab le Cnt Release Take 240 mg by mouth daily. lisinopriL (PRINIVIL;ZESTRI L) 20 mg Oral Tablet tablet Take 20 mg by mouth daily. nalOXone (NARCAN) 4 mg/actuation Nasl [place], Non-AerosolIndic ations:Invasive ductal carcinoma of right breast, stage 4 (HCC) 0.1 mL by Nasal route as needed for Opioid Reversal. [place] the contents of one device (0.1mL) into one nostril upon signs of opioid overdose. Call 911. May repeat dose in other nostril if no response within 2-3 minutes. 1 Each 02/18/2025 prochlorperazine (COMPAZINE) 10 mg Oral TabletIndication s:Invasive ductal carcinoma of breast, female, right (HCC) Take 1 tablet by mouth every 6 hours as needed for nausea and vomiting. 30 Tablet 5 02/18/2025 traMADoL 25 mg Oral TabletIndication s:Claustrophobia Take 50 mg by mouth every 6 hours as needed for Pain. 12 Tablet 02/19/2025 dexAMETHasone (DECADRON) 4 mg Oral TabletIndication s:Invasive ductal carcinoma of breast, female, right (HCC) Take 2 tabs (8 mg) by mouth twice daily for 5 doses (start day before chemo and skip morning of treatment). 28 Tablet 1 02/18/2025 04/13/2025 documented as of this encounter Discharge Disposition Disposition Code Departure Means Destination Home or Self Care documented in this encounter Plan of Treatment Upcoming Encounters Date Type Department Care Team (Late st Contact Info) Description 05/01/2025 12:30 PM EST Appointment [facility] [place] [address] Maxx Khan MD [address] [place] [address] [place] [address] 05/04/2025 8:15 AM EST Appointment [place] [address] 05/04/2025 8:45 AM EST Appointment [facility] [place] [phone] Maxx Khan MD [address] [place] [address] [place] [address] 05/04/2025 9:00 AM EST Appointment [facility] [place], [place] [id number] 05/28/2025 10:30 AM EST Appointment [facility] [place] [address] Maxx Khan MD [address] [place] [address] [place], [place] [id number] 06/26/2025 10:15 AM EST Appointment [place] [place] [address] Consuelo Ugarte, BARREL RAISER [address] [facility] [address] [place], [place] [address] documented as of this encounter Goals Goal Patient Goal Type Associated Problems Recent Progress Patient-Stated? Author Breast [facility] Yenni Funk, RN Note: Patient acknowledges understanding of new diagnosis, plan of care, available resources and how to contact Nurse Navigator with any future questions or concerns. documented as of this encounter Procedures Procedure Name Priority Date/Time Associated Diagnosis Comments MRI COMPLETE SPINAL SCREENING W WO CONTRAST STAT 02/23/2025 3:16 PM EDT Invasive ductal carcinoma of right breast, stage 4 (HCC) documented in this encounter Results * MRI COMPLETE SPINAL SCREENING W WO CONTRAST (02/23/2025 3:16 PM EDT) Anatomical Region Laterality Modality Spine, C-spine, T-spine, L-spine Magnetic Resonance 02/23/2025 3:16 PM EDT Impressions 02/23/2025 4:15 PM EDT 1. Multifocal spinal metastatic lesions, including vertebral bodies, posterior elements and sacrum. T5 is associated with 33% pathologic compression deformity and narrow left side enhancing epidural malignant tissue. Gross mild central canal narrowing. 2. No abnormal cord or leptomeningeal enhancement. 3. No significant degenerative disc disease or neural foraminal compromise, including leftT4-T5 and T5-T6. Narrative 02/23/2025 4:15 PM EDT MRI COMPLETE SPINAL SCREENING W WO CONTRAST 02/23/2025 3:16 PM CLINICAL HISTORY: 64 years-old; severe back pain. Concern for metastases. Stage IV breast cancer invasive ductal. C50.911-Malignant neoplasm of unspecified site of right female breast (HCC)-ICD-10-CM COMPARISON: PET/CT 02/11/2025. PROCEDURE COMMENTS: Sagittal pre and postcontrast T1, T2 and STIR sequences obtained on 1.5 Amanda magnet. Axial T2 and postcontrast T1 axial sequences obtained through the entire spine 20 mL Dotarem given. Technologist notes best possible images as patient was very uncomfortable lying on back. FINDINGS: Cervical spine: No abnormal T1 hypointensity or STIR hyperintensity involves cervical spine. Posterior right C6 has a very small area of heterogeneous faint hyperintensity that suppresses with fat saturation. This may represent tiny hemangioma or focal fatty marrow deposition. It does not enhance. Craniocervical junction is normal. Cervical cord has normal signal and configuration. No abnormal enhancement of cervical cord or central canal structures. C4-C5 has very mild diffuse hypertrophic discogenic change potential right uncovertebral hypertrophy. Mild ligamentum flavum hypertrophy. Mild central canal narrowing. Other posterior disc margins are normal. Multilevel mild bilateral facet hypertrophy without significant neural foraminal compromise. Thoracic spine: T5, T8 vertebral bodies have most confluent T1 hypointensity, STIR hyperintensity and enhancement consistent with metastatic disease. Bilateral T5 and left T8 pedicles are involved. Also bilateral T8 proximal transverse processes. T5 vertebra has mild superior and inferior shallow concavities with overall mild to moderate loss of height/33%. Very mild irregular central posterior cortical margin of T5 without central canal compromise. Subtle ventral, left paracentral and posterior narrow epidural enhancement with mild central canal compromise at T5 level. Posterior margin of T8 and its configuration/height remain normal. Numerous other scattered smaller sites of metastatic disease with indistinct T1 hypointensities, with STIR hyperintensity and postcontrast enhancement include left T2 lamina inferior T4, inferior T6, anterior T9 and right T9 transverse process, posterior right T10, posterior bilateral T11, including right pedicle. No gross abnormal cord signal. On axial images through T5, there is motion artifact so exact degree of sac or cord distortion is limited. No greater than mild central canal narrowing. Posterior thoracic disc margins are normal. No other central canal compromise. No prominent facet joints or neural foraminal compromise. Lumbar spine: L1 vertebral body is diffusely T1 hypointense with postcontrast enhancement and STIR hyperintensity. It involves left pedicle other multisite similar metastatic lesions include posterior right L2, superior and inferior L3, central L4, multiple sites L5 and multisite within upper sacrum. Anterior upper S2 has a precontrast small to moderate T1 and T2 hyperintense hemangioma that suppresses with fat saturation. No associated compression deformities. Disc heights are preserved. No significant disc bulge or protrusion at any level. Central canal is widely patent. Conus and cauda equina are normal without abnormal enhancement conus tip ends at upper L2. No significant neural foraminal compromise at any level. Lower lumbar facet joints are mildly hypertrophic. No retroperitoneal lymphadenopathy. Left kidney is asymmetrically atrophied. It is known to have multiple calcifications on comparison CT. Also has at least 2 cysts, one very small in the other measuring 3.0 cm. Multiple small fibroids are scattered within a partially included uterine fundus. They are predominantly T2 hypointense with intermediate to low variable postcontrast signal. Procedure Note Mary Delgado MD - 02/23/2025 MRI COMPLETE SPINAL SCREENING W WO CONTRAST 02/23/2025 3:16 PM CLINICAL HISTORY: 64 years-old; severe back pain. Concern for metastases.Stage IV breast cancer invasive ductal. C50.911-Malignant neoplasm ofunspecified site of right female breast (HCC)-ICD-10-CM COMPARISON: PET/CT 02/11/2025. PROCEDURE COMMENTS: Sagittal pre and postcontrast T1, T2 and STIRsequences obtained on 1.5 Amanda magnet. Axial T2 and postcontrast T1 axialsequences obtained through the entire spine 20 mL Dotarem given. Technologist notesbest possible images as patient was very uncomfortable lying on back. FINDINGS: Cervical spine: No abnormal T1 hypointensity or STIR hyperintensity involves cervicalspine. Posterior right C6 has a very small area of heterogeneous fainthyperintensity that suppresses with fat saturation. This may represent tiny hemangioma orfocal fatty marrow deposition. It does not enhance. Craniocervical junction is normal. Cervical cord has normal signal and configuration. No abnormal enhancement of cervical cord or central canal structures. C4-C5 has very mild diffuse hypertrophic discogenic change potentialright uncovertebral hypertrophy. Mild ligamentum flavum hypertrophy. Mildcentral canal narrowing. Other posterior disc margins are normal. Multilevelmild bilateral facet hypertrophy without significant neural foraminalcompromise. Thoracic spine: T5, T8 vertebral bodies have most confluent T1 hypointensity, STIR hyperintensity and enhancement consistent with metastatic disease.Bilateral T5 and left T8 pedicles are involved. Also bilateral T8 proximal transverse processes. T5 vertebra has mild superior and inferior shallow concavitieswith overall mild to moderate loss of height/33%. Very mild irregular central posterior cortical margin of T5 without central canal compromise. Subtle ventral, left paracentral and posterior narrow epidural enhancement withmild central canal compromise at T5 level. Posterior margin of T8 and its configuration/height remain normal. Numerous other scattered smaller sitesof metastatic disease with indistinct T1 hypointensities, with STIRhyperintensity and postcontrast enhancement include left T2 lamina inferior T4, inferiorT6, anterior T9 and right T9 transverse process, posterior right T10,posterior bilateral T11, including right pedicle. No gross abnormal cord signal. On axial images through T5, there ismotion artifact so exact degree of sac or cord distortion is limited. No greaterthan mild central canal narrowing. Posterior thoracic disc margins are normal.No other central canal compromise. No prominent facet joints or neuralforaminal compromise. Lumbar spine: L1 vertebral body is diffusely T1 hypointense with postcontrastenhancement and STIR hyperintensity. It involves left pedicle other multisite similarmetastatic lesions include posterior right L2, superior and inferior L3, centralL4, multiple sites L5 and multisite within upper sacrum. Anterior upper S2 hasa precontrast small to moderate T1 and T2 hyperintense hemangioma thatsuppresses with fat saturation. No associated compression deformities. Disc heightsare preserved. No significant disc bulge or protrusion at any level. Centralcanal is widely patent. Conus and cauda equina are normal without abnormalenhancement conus tip ends at upper L2. No significant neural foraminal compromise atany level. Lower lumbar facet joints are mildly hypertrophic. No retroperitoneal lymphadenopathy. Left kidney is asymmetricallyatrophied. It is known to have multiple calcifications on comparison CT. Also has atleast 2 cysts, one very small in the other measuring 3.0 cm. Multiple smallfibroids are scattered within a partially included uterine fundus. They arepredominantly T2 hypointense with intermediate to low variable postcontrast signal. IMPRESSION: 1. Multifocal spinal metastatic lesions, including vertebral bodies,posterior elements and sacrum. T5 is associated with 33% pathologic compressiondeformity and narrow left side enhancing epidural malignant tissue. Gross mildcentral canal narrowing. 2. No abnormal cord or leptomeningeal enhancement. 3. No significant degenerative disc disease or neural foraminalcompromise, including leftT4-T5 and T5-T6. us Maxx Khan MD IMG MRI ORDERABLES Final Resul t documented in this encounter Visit Diagnoses Diagnosis Invasive ductal carcinoma of right breast, stage 4 (HCC) documented in this encounter Care Teams Color Checker Relationship Specialty Start Date End Date Idania Cobb, RN Oncology Nurse Navigator 01/22/25 Maxx Khan MD [address] [facility] [place] [address] Medical Oncologist Internal Medicine-Medical Oncology 02/18/25 Obdulia Mazariegos, ANTHONY Registered Nurse 02/18/25 documented as of this encounter
--- OUTSIDE RECORDS SUMMARY | 2025-02-23 12:58 | XMS_ITS | Encounter Summary ---
Author Organization [place] [address] Care Team Providers Care Unclaimed Property Manager Name Role Phone Idania Cobb RN Unavailable Maxx Khan MD Unavailable [phone] Obdulia Mazariegos RN Unavailable Unavailable Reason for Referral * MRI/CAT Scan (Emergency) - Authorization Not Needed Specialty Diagnoses / Procedures Referred By Contac t Referred To Contact Radiology Diagnoses Invasive ductal carcinoma of right breast, stage 4 (HCC) Procedures MRI BRAIN W WO CONTRAST Maxx Khan MD [address] [place] [address] [place] [address] Phone: tel: fax: [facility] [place] [address] Phone: tel: fax: Referral ID Status Reason Start Date Expiration Date Visits Requested Visits Authorized [id number] Authorization Not Needed 02/18/2026 1 1 Reason for Visit * MRI/CAT Scan (Emergency) - Authorization Not Needed Specialty Diagnoses / Procedures Referred By Contac t Referred To Contact Radiology Diagnoses Invasive ductal carcinoma of right breast, stage 4 (HCC) Procedures MRI BRAIN W WO CONTRAST Maxx Khan MD [address] [place] [address] Phone: tel: fax: [facility] [place] [address] Phone: tel: fax: Referral ID Status Reason Start Date Expiration Date Visits Requested Visits Authorized [id number] Authorization Not Needed 02/18/2026 1 1 Encounter Details Date Type Department Care Team (Latest Contact Info) Description 02/23/2025 1:58 PM EDT - 02/23/2025 11:59 PM EDT Hospital Encounter [facility] MRI [address] [facility] [place] [address] Maxx Khan MD 1 [facility] [place] [address] Invasive ductal carcinoma of [...] mouth daily. nalOXone (NARCAN) 4 mg/actuation Nasl [place], Non-AerosolIndic ations:Invasive ductal carcinoma of right breast, stage 4 (HCC) 0.1 mL by Nasal route as needed for Opioid Reversal. [place] the contents of one device (0.1mL) into [...] Info) Description 05/01/2025 12:30 PM EST Appointment [facility] [place] [address] Maxx Khan MD [address] [place] [address] [place] [address] 05/04/2025 8:15 AM EST Appointment [place] [address] 05/04/2025 8:45 AM EST Appointment [facility] [place] [id number] Maxx Khan MD [address] [place] [address] [address] [place] [address] 05/04/2025 9:00 AM EST Appointment [facility] [place], [place] [id number] 05/28/2025 10:30 AM EST Appointment [facility] [place] [address] Maxx Khan MD [address] [place] [address] [address] [place], [place] [id number] 06/26/2025 10:15 AM EST Appointment [place] [address] Consuelo Ugarte, WAREHOUSE SHIPPING CLERK [address] [place] [address] [address] [place], [place] [address] documented as of this encounter Goals Goal Patient Goal Type Associated Problems Recent Progress Patient-Stated? Author Breast Health Breast Health Yenni Funk, RN Note: Patient acknowledges understanding of new diagnosis, plan of care, available resources and how to contact Nurse Navigator with any future questions or concerns. documented as of this encounter Procedures Procedure Name Priority Date/Time Associated Diagnosis Comments MRI BRAIN W WO CONTRAST STAT 02/23/2025 3:15 PM EDT Invasive ductal carcinoma of right breast, stage 4 (HCC) documented in this encounter Results * MRI BRAIN W WO CONTRAST (02/23/2025 3:15 PM EDT) Anatomical Region Laterality Modality Head Magnetic Resonan ce 02/23/2025 3:15 PM EDT Impressions 02/23/2025 4:50 PM EDT 1. No intracranial metastases. 2. Very mild deep white matter small vessel ischemic disease. 3. Anterior left frontal bone small metastatic lesion. - - Note: Radiology results need to be interpreted within a comprehensive clinical context. If you have questions about the radiology report, please contact the office of the ordering clinician. Narrative 02/23/2025 4:50 PM EDT MRI BRAIN W WO CONTRAST: 02/23/2025 3:15 PM CLINICAL HISTORY: 64 years-old with metastatic invasive ductal carcinoma. Check for intracranial involvement. C50.911-Malignant neoplasm of unspecified site of right female breast (HCC)-ICD-10-CM. COMPARISON: MRI spine survey 02/23/2025. PET/CT 02/11/2025. PROCEDURE COMMENTS: Multiplanar sequences obtained with and without 20 mL Dotarem on 1.5 Amanda magnet. FINDINGS: Posterior lateral ventricles and atria are mildly prominent. Ventricles are midline with normal configuration. Mild tiny and very small spotty deep and subcortical white matter T2 and FLAIR hyperintensity with fairly uterine distribution side to side at choi radiata and lower centrum semiovale level. Brainstem and cerebellum are normal. No restricted diffusion, hemorrhage or mass effect. All major intracranial flow voids are present. Dural venous sinuses are patent. Craniocervical junction is normal. Partial empty sella. Inferior right maxillary sinus has small mucous retention cyst. Both ethmoid sinuses have very mild mucosal thickening. Mastoid sinuses are clear. Both sides of the skull have a few tiny and very small scattered precontrast T1 hyperintensities without additional postcontrast enhancement. Mid anterior left frontal bone has a 1.3 cm length of faint precontrast T1 hyperintensity and hazy STIR hyperintensity. It becomes more conspicuous on postcontrast images and has subtle restricted diffusion. Also corresponds to an asymmetric area of hypermetabolism on PET. Procedure Note Mary Delgado MD - 02/23/2025 MRI BRAIN W WO CONTRAST: 02/23/2025 3:15 PM CLINICAL HISTORY: 64 years-old with metastatic invasive ductal carcinoma.Check for intracranial involvement. C50.911-Malignant neoplasm of unspecifiedsite of right female breast (HCC)-ICD-10-CM. COMPARISON: MRI spine survey 02/23/2025. PET/CT 02/11/2025. PROCEDURE COMMENTS: Multiplanar sequences obtained with and without 20mL Dotarem on 1.5 Amanda magnet. FINDINGS: Posterior lateral ventricles and atria are mildly prominent. Ventriclesare midline with normal configuration. Mild tiny and very small spotty deepand subcortical white matter T2 and FLAIR hyperintensity with fairly uterine distribution side to side at choi radiata and lower centrum semiovalelevel. Brainstem and cerebellum are normal. No restricted diffusion, hemorrhageor mass effect. All major intracranial flow voids are present. Dural venous sinuses arepatent. Craniocervical junction is normal. Partial empty sella. Inferior right maxillary sinus has small mucous retention cyst. Bothethmoid sinuses have very mild mucosal thickening. Mastoid sinuses are clear. Both sides of the skull have a few tiny and very small scatteredprecontrast T1 hyperintensities without additional postcontrast enhancement. Mid anteriorleft frontal bone has a 1.3 cm length of faint precontrast T1 hyperintensityand hazy STIR hyperintensity. It becomes more conspicuous on postcontrast imagesand has subtle restricted diffusion. Also corresponds to an asymmetric area of hypermetabolism on PET. IMPRESSION: 1. No intracranial metastases. 2. Very mild deep white matter small vessel ischemic disease. 3. Anterior left frontal bone small metastatic lesion. - - Note: Radiology results need to be interpreted within a comprehensiveclinical context. If you have questions about the radiology report, please contactthe office of the ordering clinician. us Maxx Khan MD IMG MRI ORDERABLES Final Resul t documented in this encounter Visit Diagnoses Diagnosis Invasive ductal carcinoma of right breast, stage 4 (HCC) documented in this encounter Administered Medications Inactive Administered Medications - up to 1 most recent administrations Medication Order MAR Action Action Date Dose Rate Site gadoterate meglumine (DOTAREM) solution 20 mL 20 mL, Intravenous, ONCE PRN, 1 dose, Starting on 02/23/25 at 1502, Until Sun02/23/25 at 1515, Radiology Procedure, VESICANT , MRI (Contrasts) Given 02/23/2025 3:15 PM EDT 20 mL Right Arm documented in this encounter Orders Medications Ordered That Demetrio ht Not Have Been Administered Count Last Ordered Date First Ordered Date gadoterate meglumine (DOTARE M) solution 20 mL 1 02/23/2025 documented in this encounter Care Teams Unclaimed Property Manager Relationship Specialty Start Date End Date Idania Cobb RN Oncology Nurse Navigator 01/22/25 Maxx Khan MD [address] [place] [address] [place] [address] Medical Oncologist Internal Medicine-Medical Oncology 02/18/25 Obdulia Mazariegos, ANTHONY Registered Nurse 02/18/25 documented as of this encounter
--- OUTSIDE RECORDS SUMMARY | 2025-02-23 12:58 | XMS_ITS | Encounter Summary ---
Author Organization [place] [address] Care Team Providers Care Leak Inspector Name Role Phone Idania Cobb RN Unavailable Maxx Khan MD Unavailable [phone] Obdulia Mazariegos RN Unavailable Unavailable Reason for Referral * MRI/CAT Scan (Emergency) - Authorization Not Needed Specialty Diagnoses / Procedures Referred By Contac t Referred To Contact Radiology Diagnoses Invasive ductal carcinoma of right breast, stage 4 (HCC) Procedures MRI COMPLETE SPINAL SCREENING W WO CONTRAST Maxx Khan MD [address] [place] [address] [place] [address] Phone: tel: fax: [facility] [place] [address] Phone: tel: fax: Referral ID Status Reason Start Date Expiration Date Visits Requested Visits Authorized [id number] Authorization Not Needed 02/18/2026 1 1 Reason for Visit * MRI/CAT Scan (Emergency) - Authorization Not Needed Specialty Diagnoses / Procedures Referred By Contac t Referred To Contact Radiology Diagnoses Invasive ductal carcinoma of right breast, stage 4 (HCC) Procedures MRI COMPLETE SPINAL SCREENING W WO CONTRAST Maxx Khan MD [address] [place] [address] [place] [address] Phone: tel: fax: [facility] [place] [address] Phone: tel: fax: Referral ID Status Reason Start Date Expiration Date Visits Requested Visits Authorized [id number] Authorization Not Needed 02/18/2026 1 1 Encounter Details Date Type Department Care Team (Latest Contact Info) Description 02/23/2025 1:58 PM EDT - 02/23/2025 11:59 PM EDT Hospital Encounter [facility] MRI [address] [place] [address] Maxx Khan MD 1 [facility] [place] [address] Invasive ductal carcinoma [...] mouth daily. nalOXone (NARCAN) 4 mg/actuation Nasl [place], Non-AerosolIndic ations:Invasive ductal carcinoma of right breast, stage 4 (HCC) 0.1 mL by Nasal route as needed for Opioid Reversal. [place] the contents of one device (0.1mL) into [...] Info) Description 05/01/2025 12:30 PM EST Appointment [facility] [place] [address] Maxx Khan MD [address] [place] [address] [place] [address] 05/04/2025 8:15 AM EST Appointment [place] [address] 05/04/2025 8:45 AM EST Appointment [facility] [place] [id number] Maxx Khan MD [address] [place] [address] [place] [address] 05/04/2025 9:00 AM EST Appointment [facility] [place], [place] [id number] 05/28/2025 10:30 AM EST Appointment [facility] [place] [address] Maxx Khan MD [address] [place] [address] [address] [place], [place] [id number] 06/26/2025 10:15 AM EST Appointment [place] [address] Consuelo Ugarte, ERGONOMICS TECHNICIAN [address] [facility] [address] [place], [place] [address] documented as of this encounter Goals Goal Patient Goal Type Associated Problems Recent Progress Patient-Stated? Author Breast [facility] Breast Health Yenni Funk, RN Note: [...] (HCC) documented in this encounter Care Teams Leak Inspector Relationship Specialty Start Date End Date Idania Cobb, RN Oncology Nurse Navigator 01/22/25 Maxx Khan MD [address] [facility] [place] [address] Medical Oncologist Internal Medicine-Medical Oncology 02/18/25 Obdulia Mazariegos, ANTHONY Registered Nurse 02/18/25 documented as of this encounter
--- OUTSIDE RECORDS SUMMARY | 2025-02-23 12:58 | XMS_ITS | Encounter Summary ---
Author Organization [place] [address] Care Team Providers Care Chute Boss Name Role Phone Idania Cobb RN Unavailable Maxx Khan MD Unavailable [phone] Obdulia Mazariegos RN Unavailable Unavailable Reason for Referral * MRI/CAT Scan (Emergency) - Authorization Not Needed Specialty Diagnoses / Procedures Referred By Contac t Referred To Contact Radiology Diagnoses Invasive ductal carcinoma of right breast, stage 4 (HCC) Procedures MRI BRAIN W WO CONTRAST Maxx Khan MD [address] [place] [address] [place] [address] Phone: tel: fax: [facility] [place] [address] Phone: tel: fax: Referral ID Status Reason Start Date Expiration Date Visits Requested Visits Authorized [id number] Authorization Not Needed 02/18/2026 1 1 Reason for Visit * MRI/CAT Scan (Emergency) - Authorization Not Needed Specialty Diagnoses / Procedures Referred By Contac t Referred To Contact Radiology Diagnoses Invasive ductal carcinoma of right breast, stage 4 (HCC) Procedures MRI BRAIN W WO CONTRAST Maxx Khan MD [address] [place] [address] Phone: tel: fax: [facility] [place] [address] Phone: tel: fax: Referral ID Status Reason Start Date Expiration Date Visits Requested Visits Authorized [id number] Authorization Not Needed 02/18/2026 1 1 Encounter Details Date Type Department Care Team (Latest Contact Info) Description 02/23/2025 1:58 PM EDT - 02/23/2025 11:59 PM EDT Hospital Encounter [facility] MRI [address] [facility] [place] [address] Maxx Khan MD 1 [facility] [place] [address] Invasive ductal carcinoma of right breast, [...] mouth daily. nalOXone (NARCAN) 4 mg/actuation Nasl [place], Non-AerosolIndic ations:Invasive ductal carcinoma of right breast, stage 4 (HCC) 0.1 mL by Nasal route as needed for Opioid Reversal. [place] the contents of one device (0.1mL) into [...] Info) Description 05/01/2025 12:30 PM EST Appointment [place] [address] Maxx Khan MD [address] [place] [address] [place] [address] 05/04/2025 8:15 AM EST Appointment [facility] [place] [address] 05/04/2025 8:45 AM EST Appointment [facility] [place] [id number] Maxx Khan MD [address] [place] [address] [address] [place] [address] 05/04/2025 9:00 AM EST Appointment [facility] [place], [place] [id number] 05/28/2025 10:30 AM EST Appointment [facility] [place] [address] Maxx Khan MD [address] [place] [address] [address] [place], [place] [id number] 06/26/2025 10:15 AM EST Appointment [facility] [place] [address] Consuelo Ugarte, TAIL PULLER [address] [place] [address] [address] [place], [place] [address] documented as of this encounter Goals Goal [...] 02/23/2025 documented in this encounter Care Teams Chute Boss Relationship Specialty Start Date End Date Idania Cobb RN Oncology Nurse Navigator 01/22/25 Maxx Khan MD [address] [place] [address] [place] [address] Medical Oncologist Internal Medicine-Medical Oncology 02/18/25 Obdulia Mazariegos, ANTHONY Registered Nurse 02/18/25 documented as of this encounter
--- OUTSIDE RECORDS SUMMARY | 2025-02-25 08:35 | XMS_ITS | Encounter Summary ---
Author Organization [place] [address] Care Team Providers Care Scuba Dive Training Instructor Name Role Phone Idania Cobb RN Unavailable Maxx Khan MD Unavailable [phone] Obdulia Mazariegos RN Unavailable Unavailable Bhavesh Poole MD Unavailable Reason for Visit * Echo (Urgent) - Authorization Not Needed Specialty Diagnoses / Procedures Referred By Contac t Referred To Contact Radiology Diagnoses Invasive ductal carcinoma of right breast, stage 4 (HCC) Procedures EC ECHOCARDIOGRAM COMPLETE W DOPPLER AND COLOR FLOW MAPPING EC ECHOCARDIOGRAM LIMITED Maxx Khan MD 1 [facility] [place] [address] Phone: tel: fax: [facility] [address] [place] [address] Phone: tel: fax: Referral ID Status Reason Start Date Expiration Date Visits Requested Visits Authorized [id number] Authorization Not Needed 02/18/2027 1 1 Encounter Details Date Type Department Care Team (Latest Contact Info) Description 02/25/2025 9:35 AM EDT - 02/25/2025 11:32 AM EDT Hospital Encounter [facility] [address] [place] [address] Maxx Khan MD [address] [facility] [place] [address] Invasive ductal carcinoma of right breast, stage [...] mouth daily. nalOXone (NARCAN) 4 mg/actuation Nasl [place], Non-AerosolIndic ations:Invasive ductal carcinoma of right breast, stage 4 (HCC) 0.1 mL by Nasal route as needed for Opioid Reversal. [place] the contents of one device (0.1mL) into [...] Info) Description 05/01/2025 12:30 PM EST Appointment [facility] [place] [address] Maxx Khan MD 1 [place] [address] 05/04/2025 8:15 AM EST Appointment [place] [address] 05/04/2025 8:45 AM EST Appointment [facility] [place] [address] Maxx Khan MD [address] [facility] [place] [address] 05/04/2025 9:00 AM EST Appointment [facility] [place], [place] [id number] 05/28/2025 10:30 AM EST Appointment [facility] [place] [address] Maxx Khan MD [address] [facility] [place] [address] 06/26/2025 10:15 AM EST Appointment [place] [address] Consuelo Ugarte APRN [address] [place] [place] [address] documented as of this encounter Goals Goal Patient Goal Type Associated Problems Recent Progress Patient-Stated? Author Breast Health Breast Health Yenni Funk, RN Note: Patient acknowledges understanding of new diagnosis, plan of care, available resources and how to contact Nurse Navigator with any future questions or concerns. documented as of this encounter Procedures Procedure Name Priority Date/Time Associated Diagnosis Comments EC ECHOCARDIOGRAM COMPLETE W DOPPLER AND COLOR FLOW MAPPING Routine 02/25/2025 11:02 AM EDT Invasive ductal carcinoma of right breast, stage 4 (HCC) documented in this encounter Results * EC ECHOCARDIOGRAM COMPLETE W DOPPLER AND COLOR FLOW MAPPING (02/25/2025 11:02 AM EDT) LV DIASTOLIC PLAX 4.49 cm PYRAMIS AORTIC STENOSIS no PYRAMIS MITRAL REGURGITATION no PYRAMIS Ejection Fraction 60-65% [place] Anatomical Region Laterality Modality Electrocardiogra phy 02/25/2025 10:0 8 AM EDT Impressions 02/25/2025 1:34 PM EDT Conclusions * Left ventricular chamber dimension is normal. * Left ventricular function is normal with an estimated ejection fraction of 60-65%. * Left ventricular segmental wall motion is normal. * The left ventricular diastolic function is normal. * Global longitudinal strain of the left ventricle is -28.0 %. * Right ventricular systolic function is normal. * Unable to estimate pulmonary arterial systolic pressure due to lack of tricuspid regurgitation jet. Narrative Procedure Note Naman Vinson MD - 02/25/2025 IMPRESSION Conclusions * Left ventricular chamber dimension is normal. * Left ventricular function is normal with an estimated ejectionfraction of 60-65%. * Left ventricular segmental wall motion is normal. * The left ventricular diastolic function is normal. * Global longitudinal strain of the left ventricle is -28.0 %. * Right ventricular systolic function is normal. * Unable to estimate pulmonary arterial systolic pressure due to lackof tricuspid regurgitation jet. us Maxx Khan MD IMG ECHO ORDERABLES Final Resu lt documented in this encounter Visit Diagnoses Diagnosis Invasive ductal carcinoma of right breast, stage 4 (HCC) documented in this encounter Care Teams Scuba Dive Training Instructor Relationship Specialty Start Date End Date Idania Cobb RN Oncology Nurse Navigator 01/22/25 Maxx Khan MD [address] [place] [address] Medical Oncologist Internal Medicine-Medical Oncology 02/18/25 Obdulia Mazariegos, RN Registered Nurse 02/18/25 Bhavesh Poole MD [address] [place] [address] Radiation Oncologist Radiology-Radiation Oncology 02/24/25 documented as of this encounter
--- OUTSIDE RECORDS SUMMARY | 2025-02-25 08:35 | XMS_ITS | Encounter Summary ---
Author Organization [place] [address] Care Team Providers Care Product/Industry Consultant Name Role Phone Idania Cobb RN Unavailable Maxx Khan MD Unavailable [phone] Obdulia Mazariegos RN Unavailable Unavailable Bhavesh Poole MD Unavailable Reason for Visit * Echo (Urgent) - Authorization Not Needed Specialty Diagnoses / Procedures Referred By Contac t Referred To Contact Radiology Diagnoses Invasive ductal carcinoma of right breast, stage 4 (HCC) Procedures EC ECHOCARDIOGRAM COMPLETE W DOPPLER AND COLOR FLOW MAPPING EC ECHOCARDIOGRAM LIMITED Maxx Khan MD 1 [facility] [place] [address] Phone: tel: fax: [facility] [address] [place] [address] Phone: tel: fax: Referral ID Status Reason Start Date Expiration Date Visits Requested Visits Authorized [id number] Authorization Not Needed 02/18/2027 1 1 Encounter Details Date Type Department Care Team (Latest Contact Info) Description 02/25/2025 9:35 AM EDT - 02/25/2025 11:32 AM EDT Hospital Encounter [facility] [address] [place] [address] Maxx Khan MD 1 [facility] [place] [address] Invasive ductal carcinoma of right breast, stage [...] mouth daily. nalOXone (NARCAN) 4 mg/actuation Nasl [place], Non-AerosolIndic ations:Invasive ductal carcinoma of right breast, stage 4 (HCC) 0.1 mL by Nasal route as needed for Opioid Reversal. [place] the contents of one device (0.1mL) into [...] Info) Description 05/01/2025 12:30 PM EST Appointment [facility] [place] [address] Maxx Khan MD 1 [facility] [place] [address] 05/04/2025 8:15 AM EST Appointment [place] [address] 05/04/2025 8:45 AM EST [facility]ointment [facility] [place] [address] Maxx Khan MD 1 [facility] [place] [address] 05/04/2025 9:00 AM EST Appointment [facility] [place], [place] [id number] 05/28/2025 10:30 AM EST Appointment [facility] [place] [address] Maxx Khan MD 1 [facility] [place] [address] 06/26/2025 10:15 AM EST Appointment [facility] [place] [address] Consuelo Ugarte APRN 1 [facility] [place] [address] documented as of this encounter Goals Goal [...] (HCC) documented in this encounter Care Teams Product/Industry Consultant Relationship Specialty Start Date End Date Idania Cobb RN Oncology Nurse Navigator 01/22/25 Maxx Khan MD [address] [place] [address] Medical Oncologist Internal Medicine-Medical Oncology 02/18/25 Obdulia Mazariegos, RN Registered Nurse 02/18/25 Bhavesh Poole MD [address] [place] [address] Radiation Oncologist Radiology-Radiation Oncology 02/24/25 documented as of this encounter
--- OUTSIDE RECORDS SUMMARY | 2025-02-25 10:33 | XMS_ITS | Encounter Summary ---
Author Organization [place] [address] Care Team Providers Care Poultry Debeaker Name Role Phone Idania Cobb RN Unavailable Maxx Khan MD Unavailable [phone] Obdulia Mazariegos RN Unavailable Unavailable Bhavesh Poole MD Unavailable Reason for Referral * MRI/CAT Scan (Routine) - Authorization Not Needed Specialty Diagnoses / Procedures Referred By Pratik t Referred To Contact Radiology Diagnoses Secondary malignant neoplasm of bone (HCC) Procedures CT CHEST RADIATION THERAPY PLANNING WO CONTRAST Bhavesh Poole MD [address] [place] [address] Phone: tel: fax: [facility] [place] [address] Phone: tel: fax: Referral ID Status Reason Start Date Expiration Date Visits Requested Visits Authorized [id number] Authorization Not Needed 02/25/2026 1 1 * Consultation (Routine) - Pending Review Specialty Diagnoses / Procedures Referred By Pratik t Referred To Contact Diagnoses Invasive ductal carcinoma of breast, female, right (HCC) Invasive ductal carcinoma of breast, female, left (HCC) Procedures CANCER CARE SOCIAL WORK REFERRAL Bhavesh Poole MD [address] [place] [address] Phone: tel: fax: Referral ID Status Reason Start Date Expiration Date V isits Requested Visits Authorized [id number] Pending Review 02/25/2025 02/25/2026 1 1 Reason for Visit * Reason Comments Consult Breast cancer * Consultation (Routine) - Pending Review Specialty Diagnoses / Procedures Referred By Contac t Referred To Contact Diagnoses Invasive ductal carcinoma of right breast, stage 4 (HCC) Procedures LA OFFICE/OUTPATIENT NEW MODERATE MDM 45 MINUTES Maxx Khan MD [address] [place] [address] Phone: tel: fax: Referral ID Status Reason Start Date Expiration Date V isits Requested Visits Authorized [id number] Pending Review 02/18/2025 02/18/2026 1 1 Encounter Details Date Type Department Care Team (Latest Contact Info) Description 02/25/2025 11:33 AM EDT - 02/25/2025 12:32 PM EDT Hospital Encounter [facility] [place] [address] Bhavesh Poole MD [address] [place] [address] Invasive ductal carcinoma of breast, female, right (HCC) (Primary Dx); Invasive ductal carcinoma of breast, female, left (HCC); Secondary malignant neoplasm of bone (HCC) Discharge Disposition: Home or Self Care Social History Tobacco Use Types Packs/Day Years Used Date Smoking Tobacco: Former Cigarettes Q uit: 2013 Smokeless Tobacco: Never Alcohol Use Standard Drinks/Week [...] on file documented as of this encounter Last Filed Vital Signs Vital Sign Reading Time Taken Comments Blood Pressure 157/71 02/25/2025 11:38 AM EDT large cuff Pulse - - Temperature 36.9 C (98.4 F) 02/25/2025 11:38 AM EDT Respiratory Rate 20 02/25/2025 11:3 8 AM EDT Oxygen Saturation 97% 02/25/2025 11: 38 AM EDT Inhaled Oxygen Concentration - - Weight 107.8 kg (237 lb 11. 2 oz) 02/25/2025 11:38 AM EDT Height 165 cm (5' 4.96 ) 02/25/2025 11: 38 AM EDT Body Mass Index 39.6 02/25/2025 11:38 AM EDT documented in this encounter Medications at Time of Discharge [...] mouth daily. nalOXone (NARCAN) 4 mg/actuation Nasl [place], Non-AerosolIndic ations:Invasive ductal carcinoma of right breast, stage 4 (HCC) 0.1 mL by Nasal route as needed for Opioid Reversal. [place] the contents of one device (0.1mL) into [...] or Self Care documented in this encounter Progress Notes * Bhavesh Poole MD - 02/25/2025 12:00 PM EDT Images from the original note were not included. RADIATION ONCOLOGY NEW PATIENT VISIT 03/01/2025 Chief Complaint Patient presents with Consult Breast cancer DIAGNOSIS: Cancer Staging Invasive ductal carcinoma of breast, female, left (HCC) Staging form: Breast, AJCC 8th Edition - Clinical stage from 01/20/2025: Stage IA (cT1c, cN0, cM0, G2, ER+, LA+, HER2-) - Signed by Tresa Jacinto DO on 02/06/2025 Invasive ductal carcinoma of breast, female, right (HCC) Staging form: Breast, AJCC 8th Edition - Clinical stage from 01/20/2025: Stage IV (cT3, cN1(f), cM1, G3, ER+, LA+, HER2+) - Signed by Tresa Jacinto DO on 02/17/2025 Oncology History Renal cell cancer, left (HCC) 2017 Initial Diagnosis - Renal cell cancer, left (HCC) - Reports partial nephrectomy 2017 at [facility] - States Right Kidney is d/t multiple lithotripsy procedures too close together for hx kidney stones Bilateral breast cancer (HCC) (Resolved) 01/22/2025 Initial Diagnosis Bilateral breast cancer Pathology A. BREAST, RIGHT, 12:30 O'CLOCK, CAT 5 PALPABLE 2.4 CM MASS, ULTRASOUND-GUIDED CORE NEEDLE BIOPSY: - Invasive ductal carcinoma, grade 3 (tubule formation 3, nuclear pleomorphism 3, mitotic activity 3). - Invasive carcinoma measures 14 mm in greatest linear extent, involving 3 of 3 cores. - Ductal carcinoma in situ (DCIS), grade 3, solid type, with central necrosis. - Negative for lymphovascular invasion. B. LYMPH NODE, RIGHT AXILLA, ABNORMAL NODE, ULTRASOUND-GUIDED CORE NEEDLE BIOPSY: - Ductal carcinoma, grade 3 (tubule formation 3, nuclear pleomorphism 3, mitotic activity 3). - Carcinoma measures at least 8.5 mm in greatest linear extent. - No background lymphoid tissue identified, see comment. C. BREAST, LEFT, 5 O'CLOCK, CAT 5 6 MM IRREGULAR HYPOECHOIC MASS, ULTRASOUND- GUIDED CORE NEEDLE BIOPSY: - Invasive ductal carcinoma, grade 2 (tubule formation 3, nuclear pleomorphism 2, mitotic activity 1). - Invasive carcinoma measures 8 mm in greatest linear extent, involving 3 of 3 cores. - Small foci suspicious for ductal carcinoma in situ (DCIS) 02/06/2025 - Consult Surgical Consult with Dr. Jacinto Genetics Negative [employer] Hereditary Cancer Panel (70 genes) HISTORY OF PRESENT ILLNESS: Rosario Man is a 64 y.o. 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 She reports pain at the area of T5, L1 and Lt hip. Worst pain is at T5 and L1 and raidates to the bilateral shoulders and flanks. Pain at Lt hip is intermittent, and no pain at Rt hip. All these started a few weeks ago. Denies any neurologic symptoms. She is planned for port. No systemic therapy yet. MRI Spine and Brain show significant osseous disease, consistent with prior PET, but no evidence of REMOTE CONTROL ASSEMBLER involvement. PAST HISTORY: Past Medical History[1] Patient Active Problem List Diagnosis Date Noted Invasive ductal carcinoma of breast, female, right (HCC) 02/06/2025 Invasive ductal carcinoma of breast, female, left (HCC) 02/06/2025 High cholesterol 01/02/2025 Obesity (BMI 35.0-39.9 without comorbidity) 01/02/2025 Hypertension 01/02/2025 Kidney stones 01/02/2025 Anxiety 01/02/2025 Hx of tonsillectomy 01/02/2025 Renal cell cancer, left (HCC) 01/02/2025 Surgical History[2] Family History[3] Social History Tobacco Use Smoking status: Former Current packs/day: 0.00 Types: Cigarettes Quit date: 2012 Years since quittin.8 Smokeless tobacco: Never Substance Use Topics Alcohol use: Never Current Medications[4] Medications ordered prior to the current encounter[5] Medications Taking[6] Allergies[7] Radiation History: no ADDITIONAL RADIATION ISSUES ISSUES ADDRESSED: Child Bearing Status Addressed: Yes, no additional tests needed. Nutritional Needs Addressed: Yes, no needs at this time. REVIEW OF SYSTEMS: Review of Systems Constitutional: Positive for activity change (R/t back pain) and fatigue. Negative for appetite change, chills, fever and unexpected weight change. HENT: Negative for congestion, hearing loss, rhinorrhea, sore throat and trouble swallowing. Eyes: Positive for visual disturbance (wears glasses). Respiratory: Negative for cough, chest tightness and shortness of breath. Cardiovascular: Negative for chest pain and palpitations. Gastrointestinal: Negative for abdominal pain, constipation, diarrhea, nausea and vomiting. Endocrine: Positive for heat intolerance. Genitourinary: Negative for difficulty urinating, dysuria, frequency, hematuria and urgency. Musculoskeletal: Positive for back pain (Started a couple weeks ago). Neurological: Positive for weakness, numbness (Neuropathy in feet, on-going) and headaches. Negative for dizziness. Hematological: Negative for adenopathy. Bruises/bleeds easily. Psychiatric/Behavioral: Negative for sleep disturbance. The patient is nervous/anxious (situational). PHYSICAL EXAM: BP 157/71 (BP Location: Right arm, Patient Position: Sitting) Comment: large cuff Comment (BP Location): patient denied needing to use specific extremity Temp 98.4 ??F (36.9 ??C) (Forehead) Resp 20 Ht 5' 4.96 (1.65 m) Wt 237 lb 11.2 oz (107.8 kg) SpO2 97% BMI 39.60 kg/m?? ECOG: (2) Ambulatory and capable of self care, unable to carry out work activity, up and about >50% or waking hours Physical Exam Constitutional: Appearance: Normal appearance. Cardiovascular: Rate and Rhythm: Normal rate and regular rhythm. Pulmonary: Effort: Pulmonary effort is normal. Abdominal: General: Abdomen is flat. Neurological: General: No focal deficit present. Mental Status: He is alert and oriented to person, place, and time. Mental status is at baseline. Psychiatric: Mood and Affect: Mood normal. Behavior: Behavior normal. LABS: Labs personally reviewed. IMAGING: Images personally reviewed. MRI COMPLETE SPINAL SCREENING W WO CONTRAST 02/23/2025 3:16 PM IMPRESSION: 1. Multifocal spinal metastatic lesions, including vertebral bodies, posterior elements and sacrum. T5 is associated with 33% pathologic compression deformity and narrow left side enhancing epidural malignant tissue. Gross mild central canal narrowing. 2. No abnormal cord or leptomeningeal enhancement. 3. No significant degenerative disc disease or neural foraminal compromise, including leftT4-T5 and T5-T6. MRI BRAIN W WO CONTRAST: 02/23/2025 3:15 PM IMPRESSION: 1. No intracranial metastases. 2. Very mild deep white matter small vessel ischemic disease. 3. Anterior left frontal bone small metastatic lesion. PET CT SKULL BASE TO MID THIGH, 02/11/2025 4:24 PM IMPRESSION: Extensive multifocal metastatic disease involving the right breast, right axilla, right subpectoral region, right supraclavicular region, right paratracheal region, left supraclavicular region, right hilum, and mediastinum. Extensive bone metastases. Scattered lung metastases. PATHOLOGY: PATHOLOGY TISSUE REQUEST: [id number] Order: [id number] Status: Edited Result - FINAL Next appt: 03/02/2025 at 07:45 AM in Lab ([facility]) Dx: Abnormal findings on diagnostic imagi... Test Result Released: Yes (seen) 0 Result Notes Component Ref Range & Units (hover) CASE REPORT Surgical Pathology Case: [id number] Authorizing Provider: Tresa Santiago APRN Collected: 01/20/2025 1041 Ordering Location: [facility] Received: 01/20/2025 1056 Pathologist: Elena Young MD Specimens: A) - Breast, Right, right breast Cat 5 palpable 12:30 o 'clock 2.4cm mass B) - Axilla, Right, right axilla abnormal node C) - Breast, Left, left breast Cat 5 5:00 o'clock 6mm irregular hypoechoic mass FINAL DIAGNOSIS A. BREAST, RIGHT, 12:30 O'CLOCK, CAT 5 PALPABLE 2.4 CM MASS, ULTRASOUND-GUIDED CORE NEEDLE BIOPSY: - Invasive ductal carcinoma, grade 3 (tubule formation 3, nuclear pleomorphism 3, mitotic activity 3). - Invasive carcinoma measures 14 mm in greatest linear extent, involving 3 of 3 cores. - Ductal carcinoma in situ (DCIS), grade 3, solid type, with central necrosis. - Negative for lymphovascular invasion. B. LYMPH NODE, RIGHT AXILLA, ABNORMAL NODE, ULTRASOUND-GUIDED CORE NEEDLE BIOPSY: - Ductal carcinoma, grade 3 (tubule formation 3, nuclear pleomorphism 3, mitotic activity 3). - Carcinoma measures at least 8.5 mm in greatest linear extent. - No background lymphoid tissue identified, see comment. C. BREAST, LEFT, 5 O'CLOCK, CAT 5 6 MM IRREGULAR HYPOECHOIC MASS, ULTRASOUND- GUIDED CORE NEEDLE BIOPSY: - Invasive ductal carcinoma, grade 2 (tubule formation 3, nuclear pleomorphism 2, mitotic activity 1). - Invasive carcinoma measures 8 mm in greatest linear extent, involving 3 of 3 cores. - Small foci suspicious for ductal carcinoma in situ (DCIS). - Negative for lymphovascular invasion. - Calcifications identified, associated with invasive carcinoma and nonneoplastic tissue. at 1300 EDT ASSESSMENT/PLAN: Rosario Man is a 64 y.o. 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 She reports pain at the area of T5, L1 and Lt hip. Worst pain is at T5 and L1 and raidates to the bilateral shoulders and flanks. Pain at Lt hip is intermittent, and no pain at Rt hip. All these started a few weeks ago. Denies any neurologic symptoms. She is planned for port. No systemic therapy yet. MRI Spine and Brain show significant osseous disease, consistent with prior PET, but no evidence of REMOTE CONTROL ASSEMBLER involvement. Discussed palliative RT to T5 and L1-L3 for pain control. No clear target for Lt hip pain, so will recommend against RT there. I would recommend palliative RT to right hip given presence of a large FDG avid mass at femoral neck there. Discussed benefits and risks with patient, and after a thorough discussion she was in agreement with the plan. Plan: - Palliative RT with 20Gy in 5fx to T5, L1-3 and Rt Femoral Neck The plan of care for pain includes the following Interventions: Pain medications Rosario was seen today for consult. Diagnoses and all orders for this visit: Invasive ductal carcinoma of breast, female, right (HCC) - CANCER CARE SOCIAL WORK REFERRAL Invasive ductal carcinoma of breast, female, left (HCC) - CANCER CARE SOCIAL WORK REFERRAL Secondary malignant neoplasm of bone (HCC) - CT CHEST RADIATION THERAPY PLANNING WO CONTRAST; Future Bhavesh Poole MD [1] Past Medical History: Diagnosis Date Anxiety 01/02/2025 Bilateral breast cancer (HCC) 01/22/2025 melita Invasive Ductal Carcinoma and positive Right Axillary node High cholesterol 01/02/2025 History of atrial fibrillation normal rhythm since 2017 Hypertension 01/02/2025 Kidney stones 01/02/2025 Obesity (BMI 35.0-39.9 without comorbidity) 01/02/2025 [2] Past Surgical History: Procedure Laterality Date ABDOMINAL HERNIA REPAIR 2020 [facility] BREAST BIOPSY Left 1999 IR PORT PLACEMENT EQUAL OR > 5 YEARS 02/27/2025 IR PORT PLACEMENT EQUAL OR > 5 YEARS 02/27/2025 Jeannine Hoyos MD FTT IR KIDNEY SURGERY Left 2017 [facility] MM US BREAST BIOPSY ADDITIONAL RIGHT Right 01/20/2025 MM US BREAST BIOPSY ADDITIONAL RIGHT 01/20/2025 [facility] US BREAST BIOPSY LEFT Left 01/20/2025 MM US BREAST BIOPSY LEFT 01/20/2025 Shawnee Burnette MD [facility] MM US BREAST BIOPSY RIGHT Right 01/20/2025 MM US BREAST BIOPSY RIGHT 01/20/2025 Shaw[facility] Burnette MD [facility] PARTIAL NEPHRECTOMY Left 2017 UTERINE FIBROID SURGERY 2019 laproscopic [3] Family History Problem Relation Age of Onset Lymphoma Mother 20 40; Tuberculosis Mother Lymphoma Son 32 States ++ mutation (unsure name but will find out) Colon Cancer Maternal Aunt 60 - 69 Breast Cancer Maternal Cousin [4] Current Outpatient Medications Medication Sig Dispense Refill atorvastatin (LIPITOR) 40 mg Oral Tablet Take 40 mg by mouth daily. dexAMETHasone (DECADRON) 4 mg Oral Tablet Take 2 tabs (8 mg) by mouth twice daily for 5 doses (start day before chemo and skip morning of treatment). 28 Tablet 1 DILT-XR 240 mg Oral Capsule,Degradable Cnt Release Take 240 mg by mouth daily. lisinopriL (PRINIVIL;ZESTRIL) 20 mg Oral Tablet tablet Take 20 mg by mouth daily. aspirin 81 mg Oral Tablet, Delayed Release (E.C.) Take 81 mg by mouth daily. (Patient not taking: No sig reported) lidocaine-prilocaine (EMLA) Top Cream Apply topically as needed for Pain. Apply one nickel sized glob over port approx 1 hour before appt. DO NOT RUB IN. Cover with plastic wrap 30 g 0 nalOXone (NARCAN) 4 mg/actuation Nasl [place], Non-Aerosol 0.1 mL by Nasal route as needed for OpioidReversal. [place] the contents of one device (0.1mL) into one nostril upon signs of opioid overdose. Call 911. May repeat dose in other nostril if no response within 2-3 minutes. (Patient not taking: Reported on 02/25/2025) 1 Each 0 prochlorperazine (COMPAZINE) 10 mg Oral Tablet Take 1 tablet by mouth every 6 hours as needed for nausea and vomiting. (Patient not taking: Reported on 02/25/2025) 30 Tablet 5 traMADoL 25 mg Oral Tablet Take 50 mg by mouth every 6 hours as needed for Pain. (Patient not taking: Reported on 02/25/2025) 12 Tablet 0 No current facility-administered medications for this encounter. [5] Current Outpatient Medications on File Prior to Encounter Medication Sig Dispense Refill atorvastatin (LIPITOR) 40 mg Oral Tablet Take 40 mg by mouth daily. dexAMETHasone (DECADRON) 4 mg Oral Tablet Take 2 tabs (8 mg) by mouth twice daily for 5 doses (start day before chemo and skip morning of treatment). 28 Tablet 1 DILT-XR 240 mg Oral Capsule,Degradable Cnt Release Take 240 mg by mouth daily. lisinopriL (PRINIVIL;ZESTRIL) 20 mg Oral Tablet tablet Take 20 mg by mouth daily. aspirin 81 mg Oral Tablet, Delayed Release (E.C.) Take 81 mg by mouth daily. (Patient not taking: No sig reported) nalOXone (NARCAN) 4 mg/actuation Nasl [place], Non-Aerosol 0.1 mL by Nasal route as needed for OpioidReversal. [place] the contents of one device (0.1mL) into one nostril upon signs of opioid overdose. Call 911. May repeat dose in other nostril if no response within 2-3 minutes. (Patient not taking: Reported on 02/25/2025) 1 Each 0 prochlorperazine (COMPAZINE) 10 mg Oral Tablet Take 1 tablet by mouth every 6 hours as needed for nausea and vomiting. (Patient not taking: Reported on 02/25/2025) 30 Tablet 5 traMADoL 25 mg Oral Tablet Take 50 mg by mouth every 6 hours as needed for Pain. (Patient not taking: Reported on 02/25/2025) 12 Tablet 0 No current facility-administered medications on file prior to encounter. [6] Outpatient Medications Marked as Taking for the 02/25/25 encounter (Hospital Encounter) with Bhavesh Poole MD Medication Sig Dispense Refill atorvastatin (LIPITOR) 40 mg Oral Tablet Take 40 mg by mouth daily. dexAMETHasone (DECADRON) 4 mg Oral Tablet Take 2 tabs (8 mg) by mouth twice daily for 5 doses (start day before chemo and skip morning of treatment). 28 Tablet 1 DILT-XR 240 mg Oral Capsule,Degradable Cnt Release Take 240 mg by mouth daily. lisinopriL (PRINIVIL;ZESTRIL) 20 mg Oral Tablet tablet Take 20 mg by mouth daily. [7] No Known Allergies * Jessica Rosenberg RN - 02/25/2025 12:00 PM EDT Patient was seen today by Dr. Poole in consult for bone metastases (spine and lower extremity-right hip) . Recommended treatment with external beam radiation therapy. CT Simulation to be done/scheduled today without contrast. Patient elects for treatment at the [facility] location. Provided patient with new patient folder and reviewed contents inside folder. Including radiation side effects,educational handouts specific to patient's diagnosis, and Cancer Care handout listing resources. Time spent with patient educating on appropriate skin care regimen. (samples and coupons provided). Reviewed treatment plan with patient. Reviewed requirement 48-72 hours for medication refill requests. Patient was able to verbalize understanding and repeat teaching. Reviewed phone number to call [phone] Option 1 with any questions and/or concerns. Distress tool worksheet was completed RN has documented yes in flowsheet for reviewed. Nutrition Screen was completed and submitted for review. Nutrition Referral was not ordered per protocol. HIPAA form was updated on [place] Suicide Severity Screening was not completed this day ACP/Shared Decision Making has been addressed/discussed. Teach and consent were obtained and reviewed this visit. Integrative Consult does not need Social Work Xiomara Mackey following patient Nurse Navigation referraldoes not need documented in this encounter Plan of Treatment Upcoming Encounters Date Type Department Care Team (Late st Contact Info) Description 05/01/2025 12:30 PM EST Appointment [facility] [place] [address] Maxx Khan MD [address] [place] [address] [place] [address] 05/04/2025 8:15 AM EST Appointment [facility] [place], [place] [id number] 05/04/2025 8:45 AM EST Appointment [facility] [place] [address] Maxx Khan MD [address] [facility] [place] [id number] 05/04/2025 9:00 AM EST Appointment [facility] [place], [place] [id number] 05/28/2025 10:30 AM EST Appointment [facility] [place] [address] Maxx Khan MD 1 [facility] [place] [address] 06/26/2025 10:15 AM EST Appointment [facility] [place] [place] [address] Consuelo Ugarte APRN [address] [facility] [place] [address] documented as of this encounter Goals Goal Patient Goal Type Associated Problems Recent Progress Patient-Stated? Author Breast Health Breast Health Yenni Funk, RN Note: Patient acknowledges understanding of new diagnosis, plan of care, available resources and how to contact Nurse Navigator with any future questions or concerns. documented as of this encounter Results * CT CHEST RADIATION THERAPY PLANNING WO CONTRAST (02/25/2025 3:05 PM EDT) Anatomical Region Laterality Modality Chest Computed Tomogra phy 02/25/2025 3:05 PM EDT Impressions 02/25/2025 3:10 PM EDT Satisfactory-appearing CT for treatment planning purposes. - Note: Radiology results need to be interpreted within a comprehensive clinical context. If you have questions about the radiology report, please contact the office of the ordering clinician. Narrative 02/25/2025 3:[address] CHEST FOR XRT PLANNING CLINICAL HISTORY: C79.51-Secondary malignant neoplasm of bone (HCC)-ICD-10-CM. COMPARISON: 02/11/2025 PROCEDURE COMMENTS: Multi detector CT scanning of the region of interest per radiation therapy protocol. Dose 1 : CT DLP Total : 1147 mGycm DLP Spiral Max : 1146 mGycm Maximum CTDI Vol : 15.2 mGy FINDINGS: Markers were placed. Examination appears technically adequate with satisfactory field of view and coverage range. Previously demonstrated pathology grossly stable. No unexpected new lesion. Procedure Note Ravindra Wheeler MD - 02/25/2025 CT CHEST FOR XRT PLANNING CLINICAL HISTORY: C79.51-Secondary malignant neoplasm of bone(HCC)-ICD-10-CM. COMPARISON: 02/11/2025 PROCEDURE COMMENTS: Multi detector CT scanning of the region of interestper radiation therapy protocol. Dose 1 : CT DLP Total : 1147 mGycm DLP Spiral Max : 1146 mGycm Maximum CTDI Vol : 15.2 mGy FINDINGS: Markers were placed. Examination appears technically adequatewith satisfactory field of view and coverage range. Previously demonstrated pathology grossly stable. No unexpected newlesion. IMPRESSION: Satisfactory-appearing CT for treatment planning purposes. - Note: Radiology results need to be interpreted within a comprehensiveclinical context. If you have questions about the radiology report, please contactthe office of the ordering clinician. Bhavesh Poole MD [facility] Final Result documented in this encounter Visit Diagnoses Diagnosis Invasive ductal carcinoma of breast, female, right (HCC)- Primary Invasive ductal carcinoma of breast, female, left (HCC) Secondary malignant neoplasm of bone (HCC) Secondary malignant neoplasm of bone and bone marrow Secondary malignant neoplasm of bone (HCC) Secondary malignant neoplasm of bone and bone marrow documented in this encounter Orders Nursing Count Last Ordered Date First Orde red Date CANCER CARE SOCIAL WORK REFERRAL 1 02/26/20 documented in this encounter Care Teams Poultry Debeaker Relationship Specialty Start Date End Date Idania Cobb RN Oncology Nurse Navigator 01/22/25 Maxx Khan MD [address] [place] [address] DR [place], [place] [address] Medical Oncologist Internal Medicine-Medical Oncology 02/18/25 Obdulia Mazariegos, ANTHONY Registered Nurse 02/18/25 Bhavesh Poole MD [address] [place] [address] Radiation Oncologist Radiology-Radiation Oncology 02/24/25 documented as of this encounter"
--- OUTSIDE RECORDS SUMMARY | 2025-02-25 10:33 | XMS_ITS | Encounter Summary ---
Author Organization [place] [address] Care Team Providers Care Workers Compensation Paralegal Name Role Phone Idania Cobb RN Unavailable Maxx Khan MD Unavailable [phone] Obdulia Mazariegos RN Unavailable Unavailable Bhavesh Poole MD Unavailable Reason for Referral * MRI/CAT Scan (Routine) - Authorization Not Needed Specialty Diagnoses / Procedures Referred By Pratik t Referred To Contact Radiology Diagnoses Secondary malignant neoplasm of bone (HCC) Procedures CT CHEST RADIATION THERAPY PLANNING WO CONTRAST Bhavesh Poole MD [address] [place] [address] Phone: tel: fax: [facility] [place] [address] Phone: tel: fax: Referral ID Status Reason Start Date Expiration Date Visits Requested Visits Authorized [id number] Authorization Not Needed 02/25/2026 1 1 * Consultation (Routine) - Pending Review Specialty Diagnoses / Procedures Referred By Pratik t Referred To Contact Diagnoses Invasive ductal carcinoma of breast, female, right (HCC) Invasive ductal carcinoma of breast, female, left (HCC) Procedures CANCER CARE SOCIAL WORK REFERRAL Bhavesh Poole MD [address] [place] [address] Phone: tel: fax: Referral ID Status Reason Start Date Expiration Date V isits Requested Visits Authorized [id number] Pending Review 02/25/2025 02/25/2026 1 1 Reason for Visit * Reason Comments Consult Breast cancer * Consultation (Routine) - Pending Review Specialty Diagnoses / Procedures Referred By Contac t Referred To Contact Diagnoses Invasive ductal carcinoma of right breast, stage 4 (HCC) Procedures PA OFFICE/OUTPATIENT NEW MODERATE MDM 45 MINUTES Maxx Khan MD [address] [place] [address] Phone: tel: fax: Referral ID Status Reason Start Date Expiration Date V isits Requested Visits Authorized [id number] Pending Review 02/18/2025 02/18/2026 1 1 Encounter Details Date Type Department Care Team (Latest Contact Info) Description 02/25/2025 11:33 AM EDT - 02/25/2025 12:32 PM EDT Hospital Encounter [facility] [place] [address] Bhavesh Poole MD [address] [place] [address] Invasive ductal carcinoma of breast, female, right [...] mouth daily. nalOXone (NARCAN) 4 mg/actuation Nasl [place], Non-AerosolIndic ations:Invasive ductal carcinoma of right breast, stage 4 (HCC) 0.1 mL by Nasal route as needed for Opioid Reversal. [place] the contents of one device (0.1mL) into [...] Stage IA (cT1c, cN0, cM0, G2, ER+, PA+, HER2-) - Signed by Tresa Jacinto DO on 02/06/2025 Invasive ductal carcinoma of breast, female, right (HCC) Staging form: Breast, AJCC 8th Edition - Clinical stage from 01/20/2025: Stage IV (cT3, cN1(f), cM1, G3, ER+, PA+, HER2+) - Signed by Tresa Jacinto DO on 02/17/2025 Oncology History Renal cell cancer, left (HCC) 2017 Initial Diagnosis - Renal cell cancer, left (HCC) - Reports partial nephrectomy 2017 at [facility] - States Right Kidney is d/t multiple [...] Surgical Consult with Dr. Jacinto Genetics Negative testbirds Hereditary Cancer Panel (70 genes) HISTORY OF [...] with prior PET, but no evidence of SYNTHETIC PLASTERER involvement. PAST HISTORY: Past Medical History[1] Patient [...] Scattered lung metastases. PATHOLOGY: PATHOLOGY TISSUE REQUEST: [id number] Order: [id number] Status: Edited Result - FINAL Next appt: 03/02/2025 at 07:45 AM in Lab ([facility]) Dx: Abnormal findings on diagnostic imagi... Test Result Released: Yes (seen) 0 Result Notes Component Ref Range & Units (hover) CASE REPORT Surgical Pathology Case: [id number] Authorizing Provider: Tresa Santiago APRN Collected: 01/20/2025 1041 Ordering Location: [facility] Received: 01/20/2025 1056 Pathologist: Elena Young [...] with prior PET, but no evidence of SYNTHETIC PLASTERER involvement. Discussed palliative RT to T5 and [...] Procedure Laterality Date ABDOMINAL HERNIA REPAIR 2020 [facility] BREAST BIOPSY Left 1999 IR PORT PLACEMENT EQUAL OR > 5 YEARS 02/27/2025 IR PORT PLACEMENT EQUAL OR > 5 YEARS 02/27/2025 Jeannine Hoyos MD FTT IR KIDNEY SURGERY Left 2017 [facility] MM US BREAST BIOPSY ADDITIONAL RIGHT Right [...] g 0 nalOXone (NARCAN) 4 mg/actuation Nasl [place], Non-Aerosol 0.1 mL by Nasal route as needed for OpioidReversal. [place] the contents of one device (0.1mL) into [...] sig reported) nalOXone (NARCAN) 4 mg/actuation Nasl [place], Non-Aerosol 0.1 mL by Nasal route as needed for OpioidReversal. [place] the contents of one device (0.1mL) into [...] contrast. Patient elects for treatment at the [place] location. Provided patient with new patient folder [...] repeat teaching. Reviewed phone number to call [phone] Option 1 with any questions and/or concerns. Distress tool worksheet was completed RN has documented yes in flowsheet for reviewed. Nutrition Screen was completed and submitted for review. Nutrition Referral was not ordered per protocol. HIPAA form was updated on [place] Suicide Severity Screening was not completed this day ACP/Shared Decision Making has been addressed/discussed. Teach and consent were obtained and reviewed this visit. Integrative Consult does not need Social Work Xiomara Mackey following patient Nurse Navigation referraldoes not need documented in this encounter Plan of Treatment Upcoming Encounters Date Type Department Care Team (Late st Contact Info) Description 05/01/2025 12:30 PM EST Appointment [facility] [place] [address] Maxx Khan MD [address] [place] [address] [place] [address] 05/04/2025 8:15 AM EST Appointment [facility] [place], [place] [id number] 05/04/2025 8:45 AM EST [facility]ment [facility] [place] [address] Maxx Khan MD 1 [facility] [place] [address] 05/04/2025 9:00 AM EST Appointment [facility] [place], [place] [id number] 05/28/2025 10:30 AM EST Appointment [facility] [place] [address] Maxx Khan MD 1 [facility] [place] [address] 06/26/2025 10:15 AM EST Appointment [facility] [place] [address] Consuelo Ugarte APRN 1 [facility] [place] [address] documented as of this encounter Goals Goal [...] of the ordering clinician. Bhavesh Poole MD [facility] [place] Final Result documented in this [...] 02/26/20 documented in this encounter Care Teams Workers Compensation Paralegal Relationship Specialty Start Date End Date Idania Cobb RN Oncology Nurse Navigator 01/22/25 Maxx Khan MD [address] [place] [address] [address] [place], [place] [address] Medical Oncologist Internal Medicine-Medical Oncology 02/18/25 Obdulia Mazariegos, ANTHONY Registered Nurse 02/18/25 Bhavesh Poole MD 1 [place] [address] Radiation Oncologist Radiology-Radiation Oncology 02/24/25 documented as of this encounter
--- OUTSIDE RECORDS SUMMARY | 2025-02-25 11:33 | XMS_ITS | Encounter Summary ---
Author Organization [place] [address] Care Team Providers Care Rn Case Manager Name Role Phone Idania Cobb RN Unavailable Maxx Khan MD Unavailable [phone] Obdulia Mazariegos RN Unavailable Unavailable Bhavesh Poole MD Unavailable Encounter Details Date Type Department Care Team (Latest Contact Info) Description 02/25/2025 12:33 PM EDT - 02/25/2025 12:34 PM EDT Hospital Encounter [facility] [place] [address] Discharge Disposition: Home or Self Care Social [...] mouth daily. nalOXone (NARCAN) 4 mg/actuation Nasl [place], Non-AerosolIndic ations:Invasive ductal carcinoma of right breast, stage 4 (HCC) 0.1 mL by Nasal route as needed for Opioid Reversal. [place] the contents of one device (0.1mL) into [...] documented in this encounter Progress Notes * Obdulia Mazariegos RN - 02/25/2025 1:30 PM EDT Education provided on Docetaxel, Trastuzumab, Pertuzumab Provided and discussed chemo care folder and written drug fact sheets. Discussed side effects and their management as well as when to call the office. Opportunity given to ask questions. Patient verbalized understanding of plan of care. These medications have been fully reviewed with patient and written informed consent has been obtained. OLU Hernandez, RN documented in this encounter Plan of Treatment Upcoming Encounters Date Type Department Care Team (Late st Contact Info) Description 05/01/2025 12:30 PM EST Appointment [facility] [place] [address] Maxx Khan MD [address] [place] [address] 05/04/2025 8:15 AM EST Appointment [place] [address] 05/04/2025 8:45 AM EST [facility]ment [facility] [place] [address] Maxx Khan MD [address] [facility] [place] [address] 05/04/2025 9:00 AM EST Appointment [facility] [place], [place] [id number] 05/28/2025 10:30 AM EST Appointment [facility] [place] [address] Maxx Khan MD [address] [place] [address] [place] [address] 06/26/2025 10:15 AM EST Appointment [place] [address] Consuelo Ugarte APRN [address] [place] [address] [place] [address] documented as of this encounter Goals Goal Patient Goal Type Associated Problems Recent Progress Patient-Stated? Author Breast Health Breast Health Yenni Funk, RN Note: Patient acknowledges understanding of new diagnosis, plan of care, available resources and how to contact Nurse Navigator with any future questions or concerns. documented as of this encounter Visit Diagnoses Not on filedocumented in this encounter Care Teams Rn Case Manager Relationship Specialty Start Date End Date Idania Cobb RN Oncology Nurse Navigator 01/22/25 Maxx Khan MD [address] [facility] [address] [place], [place] [id number] Medical Oncologist Internal Medicine-Medical Oncology 02/18/25 Obdulia Mazariegos, ANTHONY Registered Nurse 02/18/25 Bhavesh Poole MD [address] [place] [id number] Radiation Oncologist Radiology-Radiation Oncology 02/24/25 documented as of this encounter
--- OUTSIDE RECORDS SUMMARY | 2025-02-25 11:33 | XMS_ITS | Encounter Summary ---
Author Organization [place] [address] Care Team Providers Care Taproom Attendant Name Role Phone Idania Cobb RN Unavailable Maxx Khan MD Unavailable [phone] Obdulia Mazariegos RN Unavailable Unavailable Bhavesh Poole MD Unavailable Encounter Details Date Type Department Care Team (Latest Contact Info) Description 02/25/2025 12:33 PM EDT - 02/25/2025 12:34 PM EDT Hospital Encounter [facility] [place] [address] Discharge Disposition: Home or Self [...] mouth daily. nalOXone (NARCAN) 4 mg/actuation Nasl [place], Non-AerosolIndic ations:Invasive ductal carcinoma of right breast, stage 4 (HCC) 0.1 mL by Nasal route as needed for Opioid Reversal. [place] the contents of one device (0.1mL) into [...] Info) Description 05/01/2025 12:30 PM EST Appointment [facility] [place] [address] Maxx Khan MD [address] [place] [address] 05/04/2025 8:15 AM EST Appointment [place] [address] 05/04/2025 8:45 AM EST Appointment [facility] [place] [address] Maxx Khan MD [address] [facility] [place] [address] 05/04/2025 9:00 AM EST Appointment [facility] [place], [place] [id number] 05/28/2025 10:30 AM EST Appointment [facility] [place] [address] Maxx Khan MD [address] [place] [address] [place] [address] 06/26/2025 10:15 AM EST Appointment [facility] [place] [address] Consuelo Ugarte APRN [address] [place] [address] [place] [address] documented as of this encounter Goals Goal Patient Goal Type Associated Problems Recent Progress Patient-Stated? Author Breast Health Breast Health Yenni Funk, RN Note: Patient acknowledges understanding of new diagnosis, plan of care, available resources and how to contact Nurse Navigator with any future questions or concerns. documented as of this encounter Visit Diagnoses Not on filedocumented in this encounter Care Teams Taproom Attendant Relationship Specialty Start Date End Date Idania Cobb RN Oncology Nurse Navigator 01/22/25 Maxx Khan MD [address] [facility] [address] [place], [place] [id number] Medical Oncologist Internal Medicine-Medical Oncology 02/18/25 Obdulia Mazariegos, ANTHONY Registered Nurse 02/18/25 Bhavesh Poole MD [address] [place] [id number] Radiation Oncologist Radiology-Radiation Oncology 02/24/25 documented as of this encounter
--- OUTSIDE RECORDS SUMMARY | 2025-02-25 11:35 | XMS_ITS | Encounter Summary ---
Author Organization [place] [address] Care Team Providers Care Forestry And Wildlife Manager Name Role Phone Idania Cobb RN Unavailable Maxx Khan MD Unavailable [phone] Obdulia Mazariegos RN Unavailable Unavailable Bhavesh Poole MD Unavailable Encounter Details Date Type Department Care Team (Latest Contact Info) Description 02/25/2025 12:35 PM EDT - 02/25/2025 1:50 PM EDT Hospital Encounter [place] [address] Bhavesh Poole MD [address] [place] [address] Secondary malignant neoplasm of bone (HCC) (Primary Dx) Discharge Disposition: Home or Self Care Social [...] mouth daily. nalOXone (NARCAN) 4 mg/actuation Nasl [place], Non-AerosolIndic ations:Invasive ductal carcinoma of right breast, stage 4 (HCC) 0.1 mL by Nasal route as needed for Opioid Reversal. [place] the contents of one device (0.1mL) into [...] documented in this encounter Progress Notes * Юлия Falcon, RT - 02/25/2025 1:50 PM EDT RADIATION THERAPY SIMULATION NOTE Patient Name: Rosario Man : 1960 Date of Service: 02/25/2025 Diagnosis: Cancer Staging Invasive ductal carcinoma of breast, female, left (HCC) Staging form: Breast, AJCC 8th Edition - Clinical stage from 01/20/2025: Stage IA (cT1c, cN0, cM0, G2, ER+, OR+, HER2-) - Signed by Tresa Jacinto DO on 02/06/2025 Invasive ductal carcinoma of breast, female, right (HCC) Staging form: Breast, AJCC 8th Edition - Clinical stage from 01/20/2025: Stage IV (cT3, cN1(f), cM1, G3, ER+, OR+, HER2+) - Signed by Tresa Jacinto DO on 02/17/2025 As ordered, a simulation procedure was performed. Rosario Man was placed in the treatment position utilizing the necessary immobilization devices to ensure a reproducible treatment position. All set-up parameters for the treatment delivery are outlined below. Reference felton were placed on the patient to assist with set-up. Immediately following simulation, bearing ring assembler films were obtained to definethe region of interest and reviewed. A CT for dosimetry was then obtained. These images will be utilized for purposes of formal computerized treatment planning. Dose objectives and constraint orders will be submitted to dosimetry. The radiation therapist performing the simulation is documented. Area of Scan: Extremity and Spine Patient Position: Supine Immobilization: wingboard and Vac-Loc Markers/Wires: N/A Bladder: N/A Contrast: N/A CT Simulation Imaging: Free Breathing Imaging Fusion for Planning: MRI Tx Plan: 3D Chemo: no Start Date: 03/09/25 Location: [facility] I participated in the design and creation of the treatment devices and final approval of the simulation described above. * Bhavesh Poole MD - 02/25/2025 1:50 PM EDT Images from the original note were not included. Radiation Oncology Physician Standard Forms Primary Radiation Oncologist: Юлия Falcon RT Radiation Oncology Medical Necessity and Treatment Planning Note Patient Name: Rosario Man : 1960 ECOG PS: (1) Restricted in physically strenuous activity, ambulatory and able to do work of light nature Diagnosis: Cancer Staging Invasive ductal carcinoma of breast, female, left (HCC) Staging form: Breast, AJCC 8th Edition - Clinical stage from 01/20/2025: Stage IA (cT1c, cN0, cM0, G2, ER+, OR+, HER2-) - Signed by Tresa Jacinto DO on 02/06/2025 Invasive ductal carcinoma of breast, female, right (HCC) Staging form: Breast, AJCC 8th Edition - Clinical stage from 01/20/2025: Stage IV (cT3, cN1(f), cM1, G3, ER+, OR+, HER2+) - Signed by Tresa Jacinto DO on 02/17/2025 Medical Necessity and Planning Documentation 3D Plan and Treatment As per consult note, we plan to proceed with radiotherapy. Tests and supporting medical records were interpreted to assist in defining the tumor location and the extent of disease. No further imagingwill be necessary to contour and delineate the volume to which the radiation will be provided. Note all that apply to this patient's case: 3D Planning was recommended to allow for adequate dose homogeneity. The VOI is located such that its parameters are not assessed by simple 2D imaging techniques, requiring 3D data. Document specifics about this patient's case and special circumstances which increase complexity: N/A Special Treatment Procedure Documentation of Special Circumstances and/or Special Time required due to: N/A PHYSICIAN TREATMENT PLANNING Treatment Sites: Extremity and Spine Intent of treatment:Palliative Special tests reviewed:MRI Interventions for RT:N/A Techniques/Ports:AP/PA and 3D Treatment Devices: YagantecLok Planned Beam Energy:Photons Dose per fraction: 4Gy Total fractions: 5 Organs at Risk: Abdomen, Extremity, and Spine The final prescription reflecting the treatment parameters, i.e. fractionation, energy, beam arrangement and total dose will be provided on the electronic prescription within [facility] upon completion andmy evaluation of the requested dosimetry. Analysis of final plan will be provided once the dosimetry is completed. In order to accomplish this plan, I am ordering/prescribing the following services/procedures: Simulation(s) will be necessary to accomplish a reproducible treatment position, to determine optimal treatment portals/beam arrangements, to design beam modifying devices and to verify treatment portals o n patient prior to the commencement of XRT. , Devices; for immobilization and beam shaping., Fusionof images is requested., and Weekly physics checks. Imaging will be necessary during the course of therapy to monitor accuracy of treatments and patient set-up. For the proposed treatment plan, the following imaging is requested: weekly port films andVerification Simulation Notes/Comments: (Special Considerations/Unusual Conditions/Precautions/Special Testing): N/A Bhavesh Poole MD documented in this encounter Plan of Treatment Upcoming Encounters Date Type Department Care Team (Late st Contact Info) Description 05/01/2025 12:30 PM EST Appointment [facility] [place] [address] Maxx Khan MD 1 [facility] [place] [address] 05/04/2025 8:15 AM EST Appointment [place] [address] 05/04/2025 8:45 AM EST Appointment [facility] [place] [address] Maxx Khan MD [address] [facility] [place] [address] 05/04/2025 9:00 AM EST Appointment [facility] [place] [address] 05/28/2025 10:30 AM EST Appointment [facility] One [facility] [place] [address] Maxx Khan MD [address] [facility] [place] [address] 06/26/2025 10:15 AM EST Appointment [place] [address] Consuelo Ugarte APRN [address] [facility] [place] [address] documented as of this encounter Goals Goal Patient Goal Type Associated Problems Recent Progress Patient-Stated? Author Breast Health Breast Health Yenni Funk RN Note: Patient acknowledges understanding of new diagnosis, plan of care, available resources and how to contact Nurse Navigator with any future questions or concerns. documented as of this encounter Visit Diagnoses Diagnosis Secondary malignant neoplasm of bone (HCC)- Primary Secondary malignant neoplasm of bone and bone marrow documented in this encounter Care Teams Forestry And Wildlife Manager Relationship Specialty Start Date End Date Idania Cobb RN Oncology Nurse Navigator 01/22/25 Maxx Khan MD 1 [place] [address] Medical Oncologist Internal Medicine-Medical Oncology 02/18/25 Obdulia Mazariegos, RN Registered Nurse 02/18/25 Bhavesh Poole MD 1 [place] [address] Radiation Oncologist Radiology-Radiation Oncology 02/24/25 documented as of this encounter
--- OUTSIDE RECORDS SUMMARY | 2025-02-25 11:35 | XMS_ITS | Encounter Summary ---
Author Organization [place] [address] Care Team Providers Care Change Coordinator Name Role Phone Idania Cobb RN Unavailable Maxx Khan MD Unavailable [phone] Obdulia Mazariegos RN Unavailable Unavailable Bhavesh Poole MD Unavailable Encounter Details Date Type Department Care Team (Latest Contact Info) Description 02/25/2025 12:35 PM EDT - 02/25/2025 1:50 PM EDT Hospital Encounter [facility] [address] Bhavesh Poole MD [address] [place] [address] Secondary malignant neoplasm of bone (HCC) [...] mouth daily. nalOXone (NARCAN) 4 mg/actuation Nasl [place], Non-AerosolIndic ations:Invasive ductal carcinoma of right breast, stage 4 (HCC) 0.1 mL by Nasal route as needed for Opioid Reversal. [place] the contents of one device (0.1mL) into [...] Stage IA (cT1c, cN0, cM0, G2, ER+, [place]+, HER2-) - Signed by Tresa Jacinto DO on 02/06/2025 Invasive ductal carcinoma of breast, female, right (HCC) Staging form: Breast, AJCC 8th Edition - Clinical stage from 01/20/2025: Stage IV (cT3, cN1(f), cM1, G3, ER+, [place]+, HER2+) - Signed by Tresa Jacinto DO on 02/17/2025 As ordered, a simulation procedure was performed. Rosario Man was placed in the treatment position utilizing the necessary immobilization devices to ensure a reproducible treatment position. All set-up parameters for the treatment delivery are outlined below. Reference felton were placed on the patient to assist with set-up. Immediately following simulation, therapy teacher films were obtained to definethe region of [...] 3D Chemo: no Start Date: 03/09/25 Location: [facility] I participated in the design [...] Stage IA (cT1c, cN0, cM0, G2, ER+, [place]+, HER2-) - Signed by Tresa Jacinto DO on 02/06/2025 Invasive ductal carcinoma of breast, female, right (HCC) Staging form: Breast, AJCC 8th Edition - Clinical stage from 01/20/2025: Stage IV (cT3, cN1(f), cM1, G3, ER+, [place]+, HER2+) - Signed by Tresa Jacinto DO [...] for RT:N/A Techniques/Ports:AP/PA and 3D Treatment Devices: [place] F[employer]-SafeLok Planned Beam Energy:Photons Dose per fraction: 4Gy [...] Info) Description 05/01/2025 12:30 PM EST Appointment [facility] [place] [address] Maxx Khan MD 1 [facility] [place] [address] 05/04/2025 8:15 AM EST Appointment [place] [address] 05/04/2025 8:45 AM EST Appointment [facility] [place] [address] Maxx Khan MD [address] [facility] [place] [address] 05/04/2025 9:00 AM EST Appointment [facility] [place] [address] 05/28/2025 10:30 AM EST Appointment [facility] [address] Maxx Khan MD [address] [facility] [place] [address] 06/26/2025 10:15 AM EST Appointment [facility] [place] [address] Consuelo Ugarte APRN [address] [facility] [place] [address] documented as of this encounter Goals Goal [...] marrow documented in this encounter Care Teams Change Coordinator Relationship Specialty Start Date End Date Idania Cobb RN Oncology Nurse Navigator 01/22/25 Maxx Khan MD 1 [place] [address] Medical Oncologist Internal Medicine-Medical Oncology 02/18/25 Obdulia Mazariegos, RN Registered Nurse 02/18/25 Bhavesh Poole MD 1 [place] [address] Radiation Oncologist Radiology-Radiation Oncology 02/24/25 documented as of this encounter
--- OUTSIDE RECORDS SUMMARY | 2025-02-25 12:51 | XMS_ITS | Encounter Summary ---
Author Organization [place] [address] Care Team Providers Care Furniture Upholsterer Apprentice Name Role Phone Idania Cobb RN Unavailable Maxx Khan MD Unavailable [phone] Obdulia Mazariegos RN Unavailable Unavailable Bhavesh Poole MD Unavailable Reason for Referral * MRI/CAT Scan (Routine) - Authorization Not Needed Specialty Diagnoses / Procedures Referred By Contac t Referred To Contact Radiology Diagnoses Secondary malignant neoplasm of bone (HCC) Procedures CT CHEST RADIATION THERAPY PLANNING WO CONTRAST Bhavesh Poole MD [address] [place] [address] Phone: tel: fax: ED CANCER [facility] [place] [address] Phone: tel: fax: Referral ID Status Reason Start Date Expiration Date Visits Requested Visits Authorized [id number] Authorization Not Needed 02/25/2026 1 1 Reason for Visit * MRI/CAT Scan (Routine) - Authorization Not Needed Specialty Diagnoses / Procedures Referred By Contac t Referred To Contact Radiology Diagnoses Secondary malignant neoplasm of bone (HCC) Procedures CT CHEST RADIATION THERAPY PLANNING WO CONTRAST Bhavesh Poole MD [address] [place] [address] Phone: tel: fax: ED [facility]CER [facility] [place] [address] Phone: tel: fax: Referral ID Status Reason Start Date Expiration Date Visits Requested Visits Authorized [id number] Authorization Not Needed 02/25/2026 1 1 Encounter Details Date Type Department Care Team (Latest Contact Info) Description 02/25/2025 1:51 PM EDT - 02/25/2025 11:59 PM EDT Hospital Encounter [facility] [place] [address] Bhavesh Poole MD [address] [place] [address] Secondary malignant neoplasm of bone (HCC) Discharge [...] Release Take 240 mg by mouth daily. lidocaine-priloc tim (EMLA) Top CreamIndications :Invasive ductal carcinoma of right breast, stage 4 (HCC) Apply topically as needed for Pain. Apply one nickel sized glob over port approx 1 hour before appt. DO NOT RUB IN. Cover with plastic wrap 30 g 02/25/2025 lisinopriL (PRINIVIL;ZESTRI L) 20 mg Oral Tablet tablet Take 20 mg by mouth daily. nalOXone (NARCAN) 4 mg/actuation Nasl [place], Non-AerosolIndic ations:Invasive ductal carcinoma of right breast, stage 4 (HCC) 0.1 mL by Nasal route as needed for Opioid Reversal. [place] the contents of one device (0.1mL) into [...] morning of treatment). 28 Tablet 1 02/18/2025 5 documented as of this encounter Discharge Disposition Disposition Code Departure Means Destination Home or Self Care documented in this encounter Plan of Treatment Upcoming Encounters Date Type Department Care Team (Late st Contact Info) Description 05/01/2025 12:30 PM EST Appointment [facility] Center [address] [place], [place] [id number] Maxx Khan MD [address] [place] [address] [place] [address] 05/04/2025 8:15 AM EST Appointment [place] [place] [address] 05/04/2025 8:45 AM EST Appointment [facility] [place], [place] [id number] Maxx Khan MD [address] [place] [address] [address] [place] [id number] 05/04/2025 9:00 AM EST Appointment [facility] [place], [place] [id number] 05/28/2025 10:30 AM EST Appointment [facility] [place] [address] Maxx Khan MD [address] [facility] [place] [id number] 06/26/2025 10:15 AM EST Appointment [facility] [place] [address] Consuelo Ugarte APRN [address] [facility] [place] [id number] documented as of this encounter Goals Goal Patient Goal Type Associated Problems Recent Progress Patient-Stated? Author Breast [facility] Breast [facility] Yenni Funk, RN Note: Patient acknowledges understanding of new diagnosis, plan of care, available resources and how to contact Nurse Navigator with any future questions or concerns. documented as of this encounter Procedures Procedure Name Priority Date/Time Associated Diagnosis Comments CT CHEST RADIATION THERAPY PLANNING WO CONTRAST Routine 02/25/2025 3:05 PM EDT Secondary malignant neoplasm of bone (HCC) documented in this encounter Results * CT CHEST RADIATION [...] of the ordering clinician. 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
--- OUTSIDE RECORDS SUMMARY | 2025-02-25 12:51 | XMS_ITS | Encounter Summary ---
Author Organization [place] [address] Care Team Providers Care Statistical Programmer Analyst Name Role Phone Idania Cobb RN Unavailable Maxx Khan MD Unavailable [phone] Obdulia Mazariegos RN Unavailable Unavailable Bhavesh Poole MD Unavailable Reason for Referral * MRI/CAT Scan (Routine) - Authorization Not Needed Specialty Diagnoses / Procedures Referred By Contac t Referred To Contact Radiology Diagnoses Secondary malignant neoplasm of bone (HCC) Procedures CT CHEST RADIATION THERAPY PLANNING WO CONTRAST Bhavesh Poole MD [address] [place] [address] Phone: tel: fax: ED CANCER [facility] [place] [address] Phone: tel: fax: Referral ID Status Reason Start Date Expiration Date Visits Requested Visits Authorized [id number] Authorization Not Needed 02/25/2026 1 1 Reason for Visit * MRI/CAT Scan (Routine) - Authorization Not Needed Specialty Diagnoses / Procedures Referred By Contac t Referred To Contact Radiology Diagnoses Secondary malignant neoplasm of bone (HCC) Procedures CT CHEST RADIATION THERAPY PLANNING WO CONTRAST Bhavesh Poole MD [address] [place] [address] Phone: tel: fax: ED CANCER CARE [facility] [place] [address] Phone: tel: fax: Referral ID Status Reason Start Date Expiration Date Visits Requested Visits Authorized [id number] Authorization Not Needed 02/25/2026 1 1 Encounter Details Date Type Department Care Team (Latest Contact Info) Description 02/25/2025 1:51 PM EDT - 02/25/2025 11:59 PM EDT Hospital Encounter [facility] [address] Bhavesh Poole MD [address] [place] [address] Secondary malignant neoplasm of bone [...] mouth daily. nalOXone (NARCAN) 4 mg/actuation Nasl [place], Non-AerosolIndic ations:Invasive ductal carcinoma of right breast, stage 4 (HCC) 0.1 mL by Nasal route as needed for Opioid Reversal. [place] the contents of one device (0.1mL) into [...] Info) Description 05/01/2025 12:30 PM EST Appointment [facility] Center [address] [place], [place] [id number] Maxx Khan MD [address] [place] [address] [place] [id number] 05/04/2025 8:15 AM EST Appointment [place] [address] 05/04/2025 8:45 AM EST Appointment [facility] [place], [place] [id number] Maxx Khan MD [address] [place] [address] [address] [place] [id number] 05/04/2025 9:00 AM EST Appointment [facility] [place], [place] [id number] 05/28/2025 10:30 AM EST Appointment [facility] [place] [address] Maxx Khan MD [address] [facility] [place] [address] 06/26/2025 10:15 AM EST Appointment [facility] RAD ONC [facility] [place] [address] Consuelo Ugarte APRN [address] [facility] [place] [address] documented as of this encounter Goals Goal Patient Goal Type Associated Problems Recent Progress Patient-Stated? Author Breast [facility] Breast [facility] Yenni Funk, RN Note: Patient acknowledges understanding [...] marrow documented in this encounter Care Teams Statistical Programmer Analyst Relationship Specialty Start Date End Date Idania Cobb RN Oncology Nurse Navigator 01/22/25 Maxx Khan MD 1 [place] [address] Medical Oncologist Internal Medicine-Medical Oncology 02/18/25 Obdulia Mazariegos, RN Registered Nurse 02/18/25 Bhavesh Poole MD 1 [place] [address] Radiation Oncologist Radiology-Radiation Oncology 02/24/25 documented as of this encounter
--- OUTSIDE RECORDS SUMMARY | 2025-02-27 08:25 | XMS_ITS | Encounter Summary ---
Author Organization [place] [address] Care Team Providers Care Sales Representative [employer] Name Role Phone Idania Cobb RN Unavailable Maxx Khan MD Unavailable [phone] Obdulia Mazariegos RN Unavailable Unavailable Bhavesh Poole MD Unavailable Elena Buck Clerical Staff Unavailable Reason for Referral * Interventional Radiology (Emergency) - Authorization Not Needed Specialty Diagnoses / Procedures Referred By Contac t Referred To Contact Radiology Diagnoses Invasive ductal carcinoma of right breast, stage 4 (HCC) Procedures IR PORT PLACEMENT EQUAL OR > 5 YEARS Maxx Khan MD [address] [place] [address] Phone: tel: fax: [facility] [address] [place] [address] Phone: tel: fax: Referral ID Status Reason Start Date Expiration Date Visits Requested Visits Authorized [id number] Authorization Not Needed 02/18/2026 1 1 Reason for Visit * Interventional Radiology (Emergency) - Authorization Not Needed Specialty Diagnoses / Procedures Referred By Contac t Referred To Contact Radiology Diagnoses Invasive ductal carcinoma of right breast, stage 4 (HCC) Procedures IR PORT PLACEMENT EQUAL OR > 5 YEARS Maxx Khan MD [address] [place] [address] Phone: tel: fax: [facility] [address] [place] [address] Phone: tel: fax: Referral ID Status Reason Start Date Expiration Date Visits Requested Visits Authorized [id number] Authorization Not Needed 02/18/2026 1 1 Encounter Details Date Type Department Care Team (Latest Contact Info) Description 02/27/2025 9:25 AM EDT - 02/27/2025 11:59 PM EDT Hospital Encounter [facility] [address] [place] [address] Maxx Khan MD [address] [place] [place] [address] Jeannine Hoyos MD [address] [place] [address] [address] [place] [address] Invasive ductal carcinoma of right breast, stage [...] Sign Reading Time Taken Comments Blood Pressure 153/80 02/27/2025 12:00 PM EDT Pulse 87 02/27/2025 12:00 PM EDT Temperature 36.7 C (98.1 F) 02/27/2025 9:40 AM EDT Respiratory Rate 16 02/27/2025 12:00 PM EDT Oxygen Saturation 96% 02/27/2025 12:00 PM EDT Inhaled Oxygen Concentration - - Weight 107.5 kg (237 lb) 02/27/2025 9:40 AM EDT Height 162.6 cm (5' 4 ) 02/27/2025 9:40 AM EDT Body Mass Index 40.68 02/27/2025 9:40 AM EDT documented in this encounter Discharge Instructions * Discharge Instructions* Aury Renee, ANTHONY - 02/27/2025 9:45 AM EDT Rest today. You may resume your regular diet today. Limit activity with your arm for the next 72 hours. Do not perform strenuous activity or exercise for 1 week. While at rest, keep arm elevated above the level of your heart to prevent swelling. Avoidactivities that can cause heavy perspiration, until adhesive film has fallen off naturally. Keep incision dry. Brief showers or baths are permitted after 48 hours. After shower or bath gentlyblot your wound dry with soft towel. Do not soak or scrub your incision. Do not swim or sit in a hot tub, until adhesive film has fallenoff naturally. If a dressing is used it may be removed in 24 hours. If the dressing gets wet, it should be removed immediately. Stay out of direct sunlight. Do not use tanning lamps. Do not scratch, rub,or pick at incision. Do not apply body lotions or ointment medications or any other product to your incision. Do not apply tape directly over the adhesive. You may resume your regular diet today. The medication you received today may not totally be eliminated from your body for at least 24 hours. You should not drive a car, operate machinery, make any important decisions or drink alcoholic beverages for the next 24 hours. You may take Tylenol if needed for discomfort, however, do not take aspirin, ibuprofen (motrin) naproxen (Aleve), or any other blood thinning products for 24 hours. Please be aware that the skin adhesive will disappear naturally as the wound heals. Complete skin healing usually occurs within seven to ten days. We strongly suggest that a responsible adult remain with the patient for the remainder of the day and night for patients safety and protection. Contact the [facility] Nurse Navigator at [phone] if any of the following symptoms occur with the first 24 hours Fever over 101 degrees orally Weakness or dizziness Shortness of breath Severe pain or fullness Redness Swelling Foul smelling drainage, discharge or bleeding from the puncture site. If any symptoms should occur that are severe, call 911 or go to the nearest Emergency Room and bring this sheet. documented in this encounter Medications at Time [...] mouth daily. nalOXone (NARCAN) 4 mg/actuation Nasl [place], Non-AerosolIndic ations:Invasive ductal carcinoma of right breast, stage 4 (HCC) 0.1 mL by Nasal route as needed for Opioid Reversal. [place] the contents of one device (0.1mL) [...] or Self Care documented in this encounter H&P Notes * Jeannine Hoyos MD - 02/27/2025 10:30 AM EDT Images from the original note were not included. Allergies[1] Physician: Jeannine Hoyos MD Pre-Procedure Assessment: Risks, benefits, potential complications and alternatives discussed with the patients legally authorized promotions representative. The patient's pre-procedure physical assessment indicates that the patient is suitable candidate for and agrees to the planned moderate sedation and procedure. The patient has no previous adverse experience to sedation Cardiovascular and Vital signs Stable yes Comment: Temp: 98.1 ??F (36.7 ??C) Pulse: 96 Resp: 17 BP: (!) 189/98 Adequate/Patent Oral Airway yes Comment: Mallampati Score: IV (only hard palate visible) Patient has been NPO for a sufficient period of time to allow for gastric emptying yes Comment: Time of Last PO Intake: 2300 Type of po intake: Solids H&P Update The patient was examined and NO change has occurred in the patient's condition since the H&P was completed. History and Physical within 30 days and on chart? yes History and Physical reviewed? yes Changes? no List: Physician Signature: Jeannine Hoyos MD Date: 02/27/2025 Time: 10:43 AM [1] No Known Allergies documented in this encounter Procedure Notes * Jeannine Hoyos MD - 02/27/2025 10:30 AM EDT Vascular access was obtained by Jeannine Hoyos MD of the Interventional Radiology Service under imaging guidance. Please see the radiology report for full details. Device ready for use. Jeannine Hoyos MD documented in this encounter Plan of Treatment Upcoming Encounters Date Type Department Care Team (Late st Contact Info) Description 05/01/2025 12:30 PM EST Appointment [facility] [place] [address] Maxx Khan MD [address] [place] [address] 05/04/2025 8:15 AM EST Appointment [facility] [place], [place] [id number] 05/04/2025 8:45 AM EST [facility]ment [facility] [place] [address] Maxx Khan MD [address] [place] [address] [place] [address] 05/04/2025 9:00 AM EST Appointment [facility] [place], [place] [id number] 05/28/2025 10:30 AM EST Appointment [facility] [place] [address] Maxx Khan MD [address] [place] [address] 06/26/2025 10:15 AM EST Appointment [facility] [place] [address] Consuelo Ugarte APRN [address] [place] [address] documented as of this encounter Goals Goal Patient Goal Type Associated Problems Recent Progress Patient-Stated? Author Breast Health Breast Health Yenni Funk, RN Note: Patient acknowledges understanding of new diagnosis, plan of care, available resources and how to contact Nurse Navigator with any future questions or concerns. documented as of this encounter Procedures Procedure Name Priority Date/Time Associated Diagnosis Comments IR PORT PLACEMENT EQUAL OR > 5 YEARS STAT 02/27/2025 11:03 AM EDT Invasive ductal carcinoma of right breast, stage 4 (HCC) PT / INR Routine 02/27/2025 9:28 AM EDT documented in this encounter Results * IR PORT PLACEMENT EQUAL OR > 5 YEARS (02/27/2025 11:03 AM EDT) Anatomical Region Laterality Modality Interventional R adiology 02/27/2025 11:0 3 AM EDT Impressions 02/27/2025 11:52 AM EDT Successful and uncomplicated ultrasound and fluoroscopically guided chest port insertion. Port ready for immediate use. Narrative 02/27/2025 11:52 AM EDT ULTRASOUND AND FLUOROSCOPIC CHEST PORT PLACEMENT: 02/27/2025 HISTORY: C50.911-Malignant neoplasm of unspecified site of right female breast (HCC)-ICD-10-CM TECHNICAL: written informed consent obtained. Procedure performed by Dr. Jeannine Hoyos of the Department of radiology. Pre-procedure intravenous antibiotics administered. Conscious sedation with Versed and Fentanyl administered by the Interventional Radiology nurse. Both pre and post procedure patient evaluation and cardiorespiratory monitoring performed. Conscious sedation time 30 minutes. Physician procedure time 30 minutes. Ultrasound interrogation performed of the left internal jugular vein. The vein is patent and compressible. This was documented with a permanent image. Following sterile skin preparation and local anesthesia under ultrasound guidance the vein was punctured. This allowed placement of a peel away sheath. Attention then turned to the upper chest wall. Using blunt and sharp dissection subcutaneous pocket and tunnel was created. A Power Port was positioned within the pocket and tubing brought through the tunnel to the venous entry site. Catheter cut to length and advanced through the peel away sheath with tip positioned at the caval atrial junction. This was documented with fluoroscopic spot film. The port pocket was closed with absorbable sutures and glue. The neck incision was closed with glue. The port was accessed and aspirated and flushed freely. A sterile dressing was applied. The patient tolerated the procedure well and left the Radiology Department in stable condition. No immediate complications incurred. Estimated blood loss: 5 cc. FLUOROSCOPY TIME: 0.3 minutes. Number of images obtained: 1 Procedure Note Jeannine Hoyos MD - 02/27/2025 ULTRASOUND AND FLUOROSCOPIC CHEST PORT PLACEMENT: 02/27/2025 HISTORY: C50.911-Malignant neoplasm of unspecified site of right femalebreast (HCC)-ICD-10-CM TECHNICAL: written informed consent obtained. Procedure performed by Dr.Attef Hoyos of the Department of radiology. Pre-procedure intravenous antibiotics administered. Conscious sedationwith Versed and Fentanyl administered by the Interventional Radiology nurse.Both pre and post procedure patient evaluation and cardiorespiratorymonitoring performed. Conscious sedation time 30 minutes. Physician procedure time30 minutes. Ultrasound interrogation performed of the left internal jugular vein. Thevein is patent and compressible. This was documented with a permanent image. Following sterile skin preparation and local anesthesia under ultrasound guidance the vein was punctured. This allowed placement of a peel awaysheath. Attention then turned to the upper chest wall. Using blunt and sharpdissection subcutaneous pocket and tunnel was created. A Power Port was positionedwithin the pocket and tubing brought through the tunnel to the venous entrysite. Catheter cut to length and advanced through the peel away sheath withtip positioned at the caval atrial junction. This was documented withfluoroscopic spot film. The port pocket was closed with absorbable sutures and glue.The neck incision was closed with glue. The port was accessed and aspirated andflushed freely. A sterile dressing was applied. The patient tolerated theprocedure well and left the Radiology Department in stable condition. No immediate complications incurred. Estimated blood loss: 5 cc. FLUOROSCOPY TIME: 0.3 minutes. Number of images obtained: 1 IMPRESSION: Successful and uncomplicated ultrasound and fluoroscopically guided chest port insertion. Port ready for immediate use. us Maxx Khan MD [facility] IR ORDERABLES Final Result * PT / INR (02/27/2025 9:28 AM EDT) PT 11.9 10.5 - 13.6 second(s) 02/27/2025 10:33 AM EDT [facility] INR 1.03 0.91 - 1.18 (ratio) 02/27/2025 10:33 AM EDT [facility] Comment: Level of Therapy Indications Target INR Range Standard Dose Treatment and prophylaxis of venous 2.0 - 3.0 thrombosis, pulmonary embolism High Dose High risk patients with mechanical 2.5 - 3.5 heart valves Blood VENOUS BLOOD / Unknown Venipuncture / Unknown 02/27/2025 9:28 AM EDT 02/27/2025 10:23 AM EDT us Jeannine Hoyos MD HEMATOLOGY ORDERABLES Final R esult [facility] [address] [place] [address] documented in this encounter Visit Diagnoses Diagnosis Invasive ductal carcinoma of right breast, stage 4 (HCC) documented in this encounter Administered Medications Inactive Administered Medications - up to 1 most recent administrations Medication Order MAR Action Action Date Dose Rate Site 0.9 % NaCl infusion Intravenous, at 50 mL/hr, CONTINUOUS, Starting on Sun02/27/25 at 0945, Until 02/28/25 at 0412, Start 2 hours prior to procedure, Pre-op (Floor Meds) New Bag 02/27/2025 9:45 AM EDT 50 mL/hr ceFAZolin (ANCEF) 2 g in sterile water 20 mL IVP 2 g, Intravenous, ONCE PREPROCEDURE, 1 dose, On Sun02/27/25 at 0945, If patient allergic to PCN or cephalosporin, give Clindamycin. Administer 30 minutes prior to surgery. Draw up 5.5 mL of Sterile Water for Injection and inject into one ceFAZolin 2 g vial. Shake vials until powder is completely dissolved. Then further dilute to a total volume of 20 mL for IV push administration. Administer intravenous push (IVP) over a period of 3 to 5 minutes., Reason for Therapy: Surgical Prophylaxis, Pre-procedure(IR) Given 02/27/2025 10:41 AM EDT 2 g diphenhydrAMINE (BENADRYL) injection 50 mg 50 mg, Intravenous, ONCE, 1 dose, On Sun02/27/25 at 1045 Given 02/27/2025 10:20 AM EDT 50 mg fentaNYL (SUBLIMAZE) injection Intravenous, INTRAPROCEDURE, Starting on Sun02/27/25 at 1043, Until Sun02/27/25 at 1054, Intra-op Given 02/27/2025 10:54 AM EDT 25 mcg heparin, porcine (PF) injection 50 Units 50 Units (5 mL), Intravenous, DAILY, First dose on Sun02/27/25 at 1045, Until Discontinued, Flush port daily after saline flush (unless a continuous infusion is running through port) Given 02/27/2025 11:08 AM EDT 50 Units Port lidocaine 10 mg/mL (1 %) injection (PF) Subcutaneous, INTRAPROCEDURE, Starting on Sun02/27/25 at 1054, Until Sun02/27/25 at 1054, Intra-op Given 02/27/2025 10:54 AM EDT 7 mL Left Chest lidocaine-EPINEPHrine 1 %-1:100,000 injection INTRAPROCEDURE, Starting on Sun02/27/25 at 1054, Until Sun02/27/25 at 1056, Intra-op Given 02/27/2025 10:56 AM EDT 2 mL Left Chest midazolam (VERSED) injection Intravenous, INTRAPROCEDURE, Starting on Sun02/27/25 at 1043, Until Sun02/27/25 at 1054, Intra-op Given 02/27/2025 10:54 AM EDT 1 mg sodium chloride 0.9% syringe Intravenous, DAILY, First dose on Sun02/27/25 at 1045, Until Discontinued, Flush port daily (unless a continuous infusion is running through port) Given 02/27/2025 11:07 AM EDT Port documented in this encounter Orders Medications Ordered That Demetrio ht Not Have Been Administered Count Last Ordered Date First Ordered Date fentaNYL (SUBLIMAZE) injection 25-100 mcg 1 02/27/2025 flumazeniL (ROMAZICON) injec tion 0.2-0.5 mg 1 02/27/2025 heparin flush 100 unit/mL in jection 500 Units 1 02/27/2025 heparin, porcine (PF) injection 50 Units 1 02/27/2025 midazolam (VERSED) injection 0.5-2 mg 1 naloxone (NARCAN) injection 0.4-4 mg 1 01/30 sodium chloride 0.9 % sterile syringe 1 sodium chloride 0.9% syringe 2 02/27/2025 documented in this encounter Care Teams Sales Representative [employer] Relationship Specialty Start Date End Date Idania Cobb RN Oncology Nurse Navigator 01/22/25 Maxx Khan MD 1 [place] [address] Medical Oncologist Internal Medicine-Medical Oncology 02/18/25 Obdulia Mazariegos, RN Registered Nurse 02/18/25 Bahvesh Poole MD 1 [place] [address] Radiation Oncologist Radiology-Radiation Oncology 02/24/25 Elena Buck, Clerical Staff Financial Counselor 02/27/25 documented as of this encounter
--- OUTSIDE RECORDS SUMMARY | 2025-02-27 08:25 | XMS_ITS | Encounter Summary ---
Author Organization [place] [address] Care Team Providers Care Healthcare Translator Name Role Phone Idania Cobb RN Unavailable Maxx Khan MD Unavailable [phone] Obdulia Mazariegos RN Unavailable Unavailable hBavesh Poole MD Unavailable Elena Buck Clerical Staff Unavailable Reason for Referral * Interventional Radiology (Emergency) - Authorization Not Needed Specialty Diagnoses / Procedures Referred By Contac t Referred To Contact Radiology Diagnoses Invasive ductal carcinoma of right breast, stage 4 (HCC) Procedures IR PORT PLACEMENT EQUAL OR > 5 YEARS Maxx Khan MD [address] [place] [address] Phone: tel: fax: [facility] [address] [place] [address] Phone: tel: fax: Referral ID Status Reason Start Date Expiration Date Visits Requested Visits Authorized [id number] Authorization Not Needed 02/18/2026 1 1 Reason for Visit * Interventional Radiology (Emergency) - Authorization Not Needed Specialty Diagnoses / Procedures Referred By Contac t Referred To Contact Radiology Diagnoses Invasive ductal carcinoma of right breast, stage 4 (HCC) Procedures IR PORT PLACEMENT EQUAL OR > 5 YEARS Maxx Khan MD [address] [place] [address] Phone: tel: fax: [facility] IR [address] [place] [address] Phone: tel: fax: Referral ID Status Reason Start Date Expiration Date Visits Requested Visits Authorized [id number] Authorization Not Needed 02/18/2026 1 1 Encounter Details Date Type Department Care Team (Latest Contact Info) Description 02/27/2025 9:25 AM EDT - 02/27/2025 11:59 PM EDT Hospital Encounter [facility] IR [address] [place] [address] Maxx Khan MD [address] [facility] [place] [address] Jeannine Hoyos MD [address] [place] [address] [address] [place] [address] Invasive ductal carcinoma of right [...] the [facility] Nurse Navigator at [phone] if any of the following symptoms occur [...] mouth daily. nalOXone (NARCAN) 4 mg/actuation Nasl [place], Non-AerosolIndic ations:Invasive ductal carcinoma of right breast, stage 4 (HCC) 0.1 mL by Nasal route as needed for Opioid Reversal. [place] the contents of one device (0.1mL) into [...] alternatives discussed with the patients legally authorized patient care representative. The patient's pre-procedure physical assessment indicates [...] Info) Description 05/01/2025 12:30 PM EST Appointment [facility] [place] [address] Maxx Khan MD [address] [facility] [place] [address] 05/04/2025 8:15 AM EST Appointment [facility] [place], [place] [id number] 05/04/2025 8:45 AM EST [facility]ment [facility] [place] [address] Maxx Khan MD [address] [place] [address] [place] [address] 05/04/2025 9:00 AM EST Appointment [facility] [place], [place] [id number] 05/28/2025 10:30 AM EST Appointment [facility] [place] [address] Maxx Khan MD [address] [facility] [place] [address] 06/26/2025 10:15 AM EST Appointment [place] [place] [address] Consuelo Ugarte APRN [address] [facility] [place] [address] documented as of this encounter Goals Goal [...] for immediate use. us Maxx Khan MD [facility] ORDERABLES Final Result * PT / INR (02/27/2025 9:28 AM EDT) PT 11.9 10.5 - 13.6 second(s) 02/27/2025 10:33 AM EDT [facility] INR 1.03 0.91 - 1.18 (ratio) 02/27/2025 10:33 AM EDT [facility] Comment: Level of Therapy Indications Target INR Range Standard Dose Treatment and prophylaxis of venous 2.0 - 3.0 thrombosis, pulmonary embolism High Dose High risk patients with mechanical 2.5 - 3.5 heart valves Blood VENOUS BLOOD / Unknown Venipuncture / Unknown 02/27/2025 9:28 AM EDT 02/27/2025 10:23 AM EDT us Jeannine Hoyos MD HEMATOLOGY ORDERABLES Final R esult [facility] [address] [place] [address] documented in this encounter Visit [...] 02/27/2025 documented in this encounter Care Teams Healthcare Translator Relationship Specialty Start Date End Date Idania Cobb RN Oncology Nurse Navigator 01/22/25 Maxx Khan MD 1 [place] [address] Medical Oncologist Internal Medicine-Medical Oncology 02/18/25 Obdulia Mazariegos, RN Registered Nurse 02/18/25 Bhavesh Poole MD 1 [place] [address] Radiation Oncologist Radiology-Radiation Oncology 02/24/25 Elena Buck, Clerical Staff Financial Counselor 02/27/25 documented as of this encounter
--- OUTSIDE RECORDS SUMMARY | 2025-03-02 07:44 | XMS_ITS | Encounter Summary ---
Author Organization [place] [address] Care Team Providers Care Migration Agent Name Role Phone Idania Cobb RN Unavailable Maxx Khan MD Unavailable [phone] Obdulia Mazariegos RN Unavailable Unavailable Bhavesh Poole MD Unavailable Elena Buck Clerical Staff Unavailable Francisca Oconnor RN Unavailable Unava ilable Encounter Details Date Type Department Care Team (Latest Contact Info) Description 03/02/2025 7:44 AM EST - 03/02/2025 7:54 AM EST Hospital Encounter [place] [address] Invasive ductal carcinoma of breast, female, right (HCC) (Primary Dx) Discharge Disposition: Home or [...] mouth daily. nalOXone (NARCAN) 4 mg/actuation Nasl [place], Non-AerosolIndic ations:Invasive ductal carcinoma of right breast, stage 4 (HCC) 0.1 mL by Nasal route as needed for Opioid Reversal. [place] the contents of one device (0.1mL) into [...] Info) Description 05/01/2025 12:30 PM EST Appointment [facility] [place] [address] Maxx Khan MD [address] [place] [address] [id number] 05/04/2025 8:15 AM EST Appointment [facility] [place], [place] [id number] 05/04/2025 8:45 AM EST [facility]ment [facility] [place] [address] Maxx Khan MD [address] [facility] [address] [place] [id number] 05/04/2025 9:00 AM EST Appointment [place] [address] 05/28/2025 10:30 AM EST Appointment [facility] [place] [address] Maxx Khan MD [address] [facility] [place] [address] 06/26/2025 10:15 AM EST Appointment [facility] [place] [place] [address] Consuelo Ugarte APRN [address] [facility] [place] [address] documented as of this encounter Goals Goal Patient Goal Type Associated Problems Recent Progress Patient-Stated? Author Breast [facility] Breast [facility] Yenni Funk, RN Note: Patient acknowledges understanding of new diagnosis, plan of care, available resources and how to contact Nurse Navigator with any future questions or concerns. documented as of this encounter Procedures Procedure Name Priority Date/Time Associated Diagnosis Comments CBC WITH DIFF STAT 03/02/2025 7:54 AM EST Invasive ductal carcinoma of breast, female, right (HCC) MAGNESIUM LEVEL STAT 03/02/2025 7:54 AM EST Invasive ductal carcinoma of breast, female, right (HCC) COMPREHENSIVE METABOLIC PANEL STAT 03/02/2025 7:54 AM EST Invasive ductal carcinoma of breast, female, right (HCC) documented in this encounter Results * (ABNORMAL) COMPREHENSIVE METABOLIC PANEL (03/02/2025 7:54 AM EST) Sodium 137 136 - 145 mmol/L 03/02/2025 8:28 AM EST [facility] Potassium 3.9 3.5 - 5.0 mmol/L 03/02/2025 8:28 AM EST [facility] Chloride 102 98 - 107 mmol/L 03/02/2025 8:28 AM EST [facility] Total CO2 19(L) 22 - 29 mmol/L 03/02/2025 8:28 AM EST [facility] Anion Gap 16 7 - 16 mmol/L 03/02/2025 8:28 AM EST [facility] Calcium 10.3 8.8 - 10.4 mg/dL 03/02/2025 8:28 AM EST [facility] Glucose Lvl 204(H) 70 - 99 mg/dL 03/02/2025 8:28 AM EST [facility] BUN 21 8 - 23 mg/dL 03/02/2025 8:28 AM EST [facility] Creatinine 0.75 0.51 - 1.30 mg/dL 03/02/2025 8:28 AM EST [facility] Albumin 4.4 3.2 - 4.6 gm/dL 03/02/2025 8:28 AM EST [facility] Total Protein 7.7 6.4 - 8.3 gm/dL 03/02/2025 8:28 AM EST [facility] Bili Total 0.4 0.2 - 1.3 mg/dL 03/02/2025 8:28 AM EST [facility] ALT 25 <=41 U/L 03/02/2025 8:28 AM EST [facility] AST 23 <=40 U/L 03/02/2025 8:28 AM EST [facility] Alk Phos 115 36 - 123 U/L 03/02/2025 8:28 AM EST [facility] eGFR (CKD-EPIcr 2020) 88 >=60 mL/min/1.7 3 m2 03/02/2025 8:28 AM EST [facility] Comment:Estimated GFR was ca lculated using the CKD-EPIcr (2020) equation refit without race. The equation is recommended by the National Kidney Foundation - [place] [employer] Nephrology Task Force. Blood VENOUS BLOOD / Unknown Port / Unknown 03/02/2025 7:54 AM EST 03/02/2025 7:55 AM EST us Maxx Khan MD CHEMISTRY ORDERABLES Final Res ult [facility] [address] [facility] [facility], [place] [address] * (ABNORMAL) CBC WITH DIFF (03/02/2025 7:54 AM EST) WBC 14.8(H) 3.7 - 10.3 x10(3)/mc L 03/02/2025 7:59 AM EST [facility] RBC 5.00 3.90 - 5.20 x10(6)/mc L 03/02/2025 7:59 AM EST [facility] Hgb 14.7 11.2 - 15.7 g/dL 03/02/2025 7:59 AM [facility] Hct 43.3 34.0 - 45.0 % 03/02/2025 7:59 AM EST [facility] MCV 86.6 80.0 - 100.0 fL 03/02/2025 7:59 AM [facility] MCH 29.4 26.0 - 34.0 pg 03/02/2025 7:59 AM EST [facility] MCHC 33.9 30.7 - 35.5 g/dL 03/02/2025 7:59 AM EST [facility] RDW 12.7 <=14.9 % 03/02/2025 7:59 AM EST [facility] Platelet 300 155 - 369 x10(3)/mc L 03/02/2025 7:59 AM [facility] MPV 9.1 8.8 - 12.5 fL 03/02/2025 7:59 AM [facility] Neut # Prelim 12.7(H) 1.6 - 6.1 x10(3)/mc L 03/02/2025 7:59 AM EST [facility] Comment:Preliminary automate d absolute neutrophil count. Value may change if manual differential is indicated. Neut Percent 86.1 % 03/02/2025 7:59 AM EST [facility] Comment:Neutrophils equals s egs plus bands Imm Gran% 1.3 % 03/02/2025 7:59 AM EST [facility] Comment:Automated count of m etamyelocytes, myelocytes and promyelocytes. IG >1% represents a left shift and provides an early indication of an infection or inflammatory process. Lymph Percent 10.4 % 03/02/2025 7:59 AM EST [facility] [place] Percent 2.1 % 03/02/2025 7:59 AM EST [facility] Eos Percent 0.0 % 03/02/2025 7:59 AM EST [facility] Baso Percent 0.1 % 03/02/2025 7:59 AM [facility] Neut # 12.7(H) 1.6 - 6.1 x10(3)/mc L 03/02/2025 7:59 AM EST [facility] Comment:Neutrophils equals s egs plus bands IMMGRAN# 0.2(H) 0.0 - 0.1 x10(3)/mc L 03/02/2025 7:59 AM [facility] Comment:Automated count of m etamyelocytes, myelocytes and promyelocytes. An absolute IG <0.1 is reported as 0.0. Lymph # 1.5 1.2 - 3.9 x10(3)/mc L 03/02/2025 7:59 AM EST [facility] [place] # 0.3 0.3 - 0.9 x10(3)/mc L 03/02/2025 7:59 AM EST [facility] Eos# 0.0 0.0 - 0.5 x10(3)/mc L 03/02/2025 7:59 AM EST [facility] Baso # 0.0 0.0 - 0.1 x10(3)/mc L 03/02/2025 7:59 AM [facility] Blood VENOUS BLOOD / Unknown Port / Unknown 03/02/2025 7:54 AM EST 03/02/2025 7:55 AM EST us Maxx Khan MD HEMATOLOGY ORDERABLES Final Re sult [facility] [address] [place] [address] * MAGNESIUM LEVEL (03/02/2025 7:54 AM EST) Magnesium 2.1 1.6 - 2.4 mg/dL 03/02/2025 8:28 AM EST [facility] Blood VENOUS BLOOD / Unknown Port / Unknown 03/02/2025 7:54 AM EST 03/02/2025 7:55 AM EST us Maxx Khan MD CHEMISTRY ORDERABLES Final Res ult [facility] [address] [facility] , [place] [address] documented in this encounter Visit Diagnoses Diagnosis Invasive ductal carcinoma of breast, female, right (HCC)- Primary documented in this encounter Administered Medications Inactive Administered Medications - up to 1 most recent administrations Medication Order MAR Action Action Date Dose Rate Site sodium chloride 0.9 % sterile syringe 10 mL 10 mL, Intravenous, ONCE, 1 dose, On 03/02/25 at 0745, For initial access of Venous Access Device., Dx: 1. Invasive ductal carcinoma of breast, female, right (HCC)Indications:Invasive ductal carcinoma of breast, female, right (HCC) Given 03/02/2025 7:56 AM EST 10 mL documented in this encounter Orders Medications Ordered That Demetrio ht Not Have Been Administered Count Last Ordered Date First Ordered Date sodium chloride 0.9 % steril e syringe 10 mL 1 03/02/2025 documented in this encounter Care Teams Migration Agent Relationship Specialty Start Date End Date Idania Cobb RN Oncology Nurse Navigator 01/22/25 Maxx Khan MD [address] [facility] [place] [address] Medical Oncologist Internal Medicine-Medical Oncology 02/18/25 Obdulia Mazariegos, ANTHONY Registered Nurse 02/18/25 Bhavesh Poole MD 1 [place] [address] Radiation Oncologist Radiology-Radiation Oncology 02/24/25 Elena Buck, Clerical Staff Financial Counselor 02/27/25 Francisca Oconnor, RN Registered Nurse Infusion Therapy 03/02/25 03/02/25 documented as of this encounter
--- OUTSIDE RECORDS SUMMARY | 2025-03-02 07:44 | XMS_ITS | Encounter Summary ---
Author Organization [place] [address] Care Team Providers Care Campaign Associate Name Role Phone Idania Cobb RN Unavailable Maxx Khan MD Unavailable [phone] Obdulia Mazariegos RN Unavailable Unavailable Bhavesh Poole MD Unavailable Elena Buck Clerical Staff Unavailable Francisca Oconnor RN Unavailable Unava ilable Encounter Details Date Type Department Care Team (Latest Contact Info) Description 03/02/2025 7:44 AM EST - 03/02/2025 7:54 AM EST Hospital Encounter [place] [address] Invasive ductal carcinoma of breast, [...] mouth daily. nalOXone (NARCAN) 4 mg/actuation Nasl [place], Non-AerosolIndic ations:Invasive ductal carcinoma of right breast, stage 4 (HCC) 0.1 mL by Nasal route as needed for Opioid Reversal. [place] the contents of one device (0.1mL) into [...] Info) Description 05/01/2025 12:30 PM EST Appointment [facility] [place] [address] Maxx Khan MD [address] [place] [address] [phone] 05/04/2025 8:15 AM EST Appointment [facility] [place], [place] [id number] 05/04/2025 8:45 AM EST [facility]ment [facility] [place] [address] Maxx Khan MD [address] [facility] [address] [place] [id number] 05/04/2025 9:00 AM EST Appointment [facility] [place] [address] 05/28/2025 10:30 AM EST Appointment [facility] [place] [address] Maxx Khan MD [address] [place] [address] 06/26/2025 10:15 AM EST Appointment [facility] [place] [address] Cnosuelo Ugarte APRN [address] [place] [address] documented as of this encounter Goals Goal Patient Goal Type Associated Problems Recent Progress Patient-Stated? Author Breast [facility] Yenni Funk, RN Note: Patient acknowledges [...] recommended by the National Kidney Foundation - [place] [employer] of Nephrology Task Force. Blood VENOUS BLOOD / Unknown Port / Unknown 03/02/2025 7:54 AM EST 03/02/2025 7:55 AM EST us Maxx Khan MD CHEMISTRY ORDERABLES Final Res ult [facility] [employer] [address] [facility] [facility], [place] [address] * (ABNORMAL) CBC WITH DIFF (03/02/2025 7:54 AM EST) WBC 14.8(H) 3.7 - 10.3 x10(3)/mc L 03/02/2025 7:59 AM EST [facility] RBC 5.00 3.90 - 5.20 x10(6)/mc L 03/02/2025 7:59 AM EST [facility] Hgb 14.7 11.2 - 15.7 g/dL 03/02/2025 7:59 AM [facility] Hct 43.3 34.0 - 45.0 % 03/02/2025 7:59 AM EST [facility] MCV 86.6 80.0 - 100.0 fL 03/02/2025 7:59 AM [facility] MCH 29.4 26.0 - 34.0 pg 03/02/2025 7:59 AM EST [facility] MCHC 33.9 30.7 - 35.5 g/dL 03/02/2025 7:59 AM EST [facility] RDW 12.7 <=14.9 % 03/02/2025 7:59 AM EST [facility] Platelet 300 155 - 369 x10(3)/mc L 03/02/2025 7:59 AM [facility] MPV 9.1 8.8 - 12.5 fL 03/02/2025 7:59 AM [facility] Neut # Prelim 12.7(H) 1.6 - 6.1 x10(3)/mc L 03/02/2025 7:59 AM EST [facility] Comment:Preliminary automate d absolute neutrophil count. Value may change if manual differential is indicated. Neut Percent 86.1 % 03/02/2025 7:59 AM EST [facility] Comment:Neutrophils equals s egs plus bands Imm Gran% 1.3 % 03/02/2025 7:59 AM EST [facility] Comment:Automated count of m etamyelocytes, myelocytes and promyelocytes. IG >1% represents a left shift and provides an early indication of an infection or inflammatory process. Lymph Percent 10.4 % 03/02/2025 7:59 AM EST [facility] [place] Percent 2.1 % 03/02/2025 7:59 AM EST [facility] Eos Percent 0.0 % 03/02/2025 7:59 AM EST [facility] Baso Percent 0.1 % 03/02/2025 7:59 AM [facility] Neut # 12.7(H) 1.6 - 6.1 x10(3)/mc L 03/02/2025 7:59 AM EST [facility] Comment:Neutrophils equals s egs plus bands IMMGRAN# 0.2(H) 0.0 - 0.1 x10(3)/mc L 03/02/2025 7:59 AM [facility] Comment:Automated count of m etamyelocytes, myelocytes and promyelocytes. An absolute IG <0.1 is reported as 0.0. Lymph # 1.5 1.2 - 3.9 x10(3)/mc L 03/02/2025 7:59 AM EST [facility] [place] # 0.3 0.3 - 0.9 x10(3)/mc L 03/02/2025 7:59 AM EST [facility] Eos# 0.0 0.0 - 0.5 x10(3)/mc L 03/02/2025 7:59 AM EST [facility] Baso # 0.0 0.0 - 0.1 x10(3)/mc L 03/02/2025 7:59 AM [facility] Blood VENOUS BLOOD / Unknown Port / Unknown 03/02/2025 7:54 AM EST 03/02/2025 7:55 AM EST us Maxx Khan MD HEMATOLOGY ORDERABLES Final Re sult [facility] 1 [place] [address] * MAGNESIUM LEVEL (03/02/2025 7:54 AM EST) Magnesium 2.1 1.6 - 2.4 mg/dL 03/02/2025 8:28 AM EST [employer] Blood VENOUS BLOOD / Unknown Port / Unknown 03/02/2025 7:54 AM EST 03/02/2025 7:55 AM EST us Maxx Khan MD CHEMISTRY ORDERABLES Final Res ult [facility] [address] [facility] , [place] [address] documented in this encounter Visit Diagnoses Diagnosis [...] 03/02/2025 documented in this encounter Care Teams Campaign Associate Relationship Specialty Start Date End Date Idania Cobb RN Oncology Nurse Navigator 01/22/25 Maxx Khan MD [address] [facility] [place] [address] Medical Oncologist Internal Medicine-Medical Oncology 02/18/25 Obdulia Mazariegos, ANTHONY Registered Nurse 02/18/25 Bhavesh Poole MD 1 [place] [address] Radiation Oncologist Radiology-Radiation Oncology 02/24/25 Elena Buck, Clerical Staff Financial Counselor 02/27/25 Francisca Oconnor, RN Registered Nurse Infusion Therapy 03/02/25 03/02/25 documented as of this encounter
--- OUTSIDE RECORDS SUMMARY | 2025-03-02 07:55 | XMS_ITS | Encounter Summary ---
Author Organization [place] [address] Care Team Providers Care Physician Office Specialist Name Role Phone Idania Cobb RN Unavailable Maxx Khan MD Unavailable [phone] Obdulia Mazariegos RN Unavailable Unavailable Bhavesh Poole MD Unavailable Elena Buck Clerical Staff Unavailable Francisca Oconnor RN Unavailable Unava ilable Reason for Visit * Reason Comments Follow-up Breast Cancer Chemotherapy Encounter Details Date Type Department Care Team (Latest Contact Info) Description 03/02/2025 7:55 AM EST - 03/02/2025 8:28 AM [facility] Hospital Encounter [facility] [place] [address] Maxx Khan MD [address] [place] [address] Invasive ductal carcinoma of right breast, stage 4 (HCC) (Primary Dx); Encounter for antineoplastic chemotherapy; Port-A-Cath in place Discharge Disposition: Home or Self Care Social [...] Sign Reading Time Taken Comments Blood Pressure 181/81 03/02/2025 7:47 AM EST Pulse 106 03/02/2025 7:47 AM EST Temperature 36.6 C (97.9 F) 03/02/2025 7:47 AM EST Respiratory Rate 16 03/02/2025 7:47 AM EST Oxygen Saturation 97% 03/02/2025 7:47 AM EST Inhaled Oxygen Concentration - - Weight 107.4 kg (236 lb 11.2 oz) 03/02/2025 7:47 AM EST Height 162.6 cm (5' 4 ) 03/02/2025 7:47 AM EST Body Mass Index 40.63 03/02/2025 7:47 AM EST documented in this encounter Medications at Time [...] mouth daily. nalOXone (NARCAN) 4 mg/actuation Nasl [place], Non-AerosolIndic ations:Invasive ductal carcinoma of right breast, stage 4 (HCC) 0.1 mL by Nasal route as needed for Opioid Reversal. [place] the contents of one device (0.1mL) into [...] morning of treatment). 28 Tablet 1 02/18/2025 documented as of this encounter Discharge Disposition Disposition Code Departure Means Destination Home or Self Care documented in this encounter Progress Notes * Maxx Khan MD - 03/02/2025 8:00 AM EST Images from the original note were not included. ONCOLOGY FOLLOW-UP: Primary Oncologist: Maxx Khan MD ONCOLOGY PROBLEM LIST: Oncology History Renal cell cancer, left (HCC) 2017 Initial Diagnosis - Renal cell cancer, left (HCC) - Reports partial nephrectomy 2017 at [place] - States Right Kidney is d/t multiple [...] Surgical Consult with Dr. Jacinto Genetics Negative [employer] Hereditary Cancer Panel (70 genes) CURRENT TREATMENT: C1D1 THP INTERVAL HISTORY: Ms. Man is a 64 y.o. female who is here for follow up. Patient states that since last visit she is doing ok. Very anxious regarding today. Reviewed past medical, surgical, family, and social histories. PHYSICAL EXAM: Vitals: 03/02/25 0747 BP: (!) 181/81 Pulse: 106 Resp: 16 Temp: 97.9 ??F (36.6 ??C) SpO2: 97% Wt Readings from Last 3 Encounters: 03/02/25 236 lb 11.2 oz (107.4 kg) 02/27/25 237 lb (107.5 kg) 02/25/25 237 lb 11.2 oz (107.8 kg) GENERAL APPEARANCE: Alert & Cooperative, Oriented X 3 LABS: CBC: Lab Results Component Value Date/Time WBC 14.8 (H) 03/02/2025 07:54 AM RBC 5.00 03/02/2025 07:54 AM PLT 300 03/02/2025 07:54 AM CMP: Lab Results Component Value Date NA 137 03/02/2025 K 3.9 03/02/2025 CL 102 03/02/2025 CO2 19 (L) 03/02/2025 ANIONGAP 16 03/02/2025 CALCIUM 10.3 03/02/2025 GLU 204 (H) 03/02/2025 BUN 21 03/02/2025 CREATININE 0.75 03/02/2025 ALBUMIN 4.4 03/02/2025 PROT 7.7 03/02/2025 LABBILI 0.4 03/02/2025 ALT 25 03/02/2025 AST 23 03/02/2025 IMAGING/Testing All relevant images were reviewed in detail with the patient. All questions were addressed and answered in great detail. CT CHEST RADIATION THERAPY PLANNING WO CONTRAST Result Date: 02/25/2025 CT CHEST FOR XRT PLANNING CLINICAL [...] pathology grossly stable. No unexpected new lesion. Satisfactory-appearing CT for treatment planning purposes. - Note: Radiology results need to be interpreted within a comprehensive clinical context. If you have questions about the radiology report, please contact the office of the ordering clinician. EC ECHOCARDIOGRAM COMPLETE W DOPPLER AND COLOR FLOW MAPPING Conclusions * Left ventricular chamber dimension is [...] due to lack of tricuspid regurgitation jet. MRI BRAIN W WO CONTRAST Result Date: 02/23/2025 MRI BRAIN W WO CONTRAST: 02/23/2025 3:15 PM CLINICAL HISTORY: 64 years-old with metastatic invasiveductal carcinoma. Check for intracranial involvement. C50.911-Malignant neoplasm [...] an asymmetric area of hypermetabolism on PET. 1. No intracranial metastases. 2. Very mild deep white matter small vessel ischemic disease. 3. Anterior left frontal bone small metastatic lesion. - - Note: Radiology results need to be interpreted within a comprehensive clinical context. If you have questions about the radiology report, please contact the office of the ordering clinician. MRI COMPLETE SPINAL SCREENING W WO CONTRAST Result Date: 02/23/2025 MRI COMPLETE SPINAL SCREENING W WO CONTRAST 02/23/2025 3:16 PM CLINICAL HISTORY: 64 years-old; severe back pain. Concern for metastases. Stage IV breast cancer invasive ductal. C50.911-Malignant neoplasm of unspecified site of right female breast (HCC)-ICD-10-CM COMPARISON: PET/CT 02/11/2025. PROCEDURE COMMENTS: Sagittal pre and postcontrast T1, T2 and STIR sequences obtained on 1.5 Amanda magnet.Axial T2 and postcontrast T1 axial sequences obtained through the entire spine 20 mL Dotarem given.Technologist notes best possible images as patient was [...] structures. C4-C5 has very mild diffuse hypertrophic disco genic change potential right uncovertebral hypertrophy. Mild ligamentum [...] margin of T8 and its configuration/height remain normal.Numerous other scattered smaller sites of metastatic disease with indistinct T1 hypointensities, with STIR hyperintensity and postcontrast enhancement include left T2 lamina inferior T4, inferior T6,anterior T9 and right T9 transverse process, posterior right T10, posterior bilateral T11, including right pedicle. No gross abnormal cord signal. On axial images through T5, there is motion artifactso exact degree of sac or cord distortion [...] has a precontrast small to moderate T1 andT2 hyperintense hemangioma that suppresses with fat saturation. No associated compression deformities. Disc heights are preserved. No significant disc bulge or protrusion at any level. Central canal i s widely patent. Conus and cauda equina are normal without abnormal enhancement conus tip ends at upper L2. No significant neural foraminal compromise at any level. Lower lumbar facet joints are mildly hypertrophic. No retroperitoneal lymphadenopathy. Left kidney is asymmetrically atrophied. It is known to have multiple calcifications on comparison CT. Also has at least 2 cysts, one very small inthe other measuring 3.0 cm. Multiple small fibroids are scattered within a partially included uterine fundus. They are predominantly T2 hypointense with intermediate to low variable postcontrast signal. 1. Multifocal spinal metastatic lesions, including vertebral bodies, posterior elements and sacrum.T5 is associated with 33% pathologic compression deformity and narrow left side enhancing epidural malignant tissue. Gross mild central canal narrowing. 2. No abnormal cord or leptomeningeal enhancement. 3. No significant degenerative disc disease or neural foraminal compromise, including leftT4-T5and T5-T6. PET CT SKULL BASE TO MID THIGH Result Date: 02/12/[address] SKULL BASE TO MID THIGH, 02/11/2025 4:24 PM CLINICAL HISTORY: C50.911- Malignant neoplasm of unspecified site of right female breast (HCC)-ICD-10-CM C50.912-Malignant neoplasm of unspecified site of left female breast (HCC)-ICD-10-CM. COMPARISON: None. PROCEDURE COMMENTS: 11.3 mCi 18F-fluorode oxyglucose (FDG) was administered I.V. Serum blood glucose at the time of the injection was 107 mg/dL. Uptake time was approximately 60 minutes. Scanning performed from the skull vertex to the mid thigh. As an integrated part of the study, noncontrast CT scanning performed for attenuation correction and localization purposes. Dose 1 : CT DLP Total : 725.97 mGycm DLP Spiral Max : 717.58 mGycm Maximum CTDI Vol : 6.75 mGy FINDINGS: Normal distribution of physiologic background activity was presentincluding gastrointestinal, genitourinary, cardiovascular, neurologic systems. Index activity in the right lobe of the liver was 3.2 SUV max. There are too numerous to count multifocal metastatic lesions which primarily involvement bone and lymph nodes. Several but not all of these will be referenced for follow-up post therapy: 1. 2 separate large foci of the right breast. There is a more posterior mass SUV 13.7. There is a smaller mass more anterior retroareolar SUV 14.7. 2. Extensive right sub pectoral and right high and low axillary adenopathy. Right subpectoral node 15 SUV. Largest more inferior right axillary lymph nodes SUV 21. Extensive right axillary adenopathy. 3. Other adenopathy also identified. Multiple right supraclavicular lymph nodes, right paratracheal lymph node SUV 18. Left supraclavicular lymph node SUV 9. Right hilar adenopathy SUV 5.9 right paraesophageal lymph node SUV 13.8 scattered lung metastases SUV 5.9 4. Extensive bone metastases. Some of these will be measured for follow-up purposes. Scattered uptake throughout multiple cervical and thoracic as well as lumbar vertebral bodies. Right skull base metastases also noted. Left C1 metastatic lesion SUV 9. Extensive uptake in the central leftward T5 vertebral body SUV 10.6. Extensive uptake in the T8 vertebral body SUV 17.7 extensive uptake L1 vertebral body SUV 21.7. Multifocal other areas of vertebral invo lvement not measured. Extensive multifocal pelvic uptake. Left sacrum SUV 16.5. Left iliac crest SUV 15.2. Right femoral neck extensive uptake SUV 21.2. Left proximal femur SUV 16. Large areas of uptake in the distal femoral shafts bilaterally. Notable CT findings: Breast masses and right axillary adenopathy noted. Lung nodules are relatively faint. Bone metastasis is a very subtle on the CT portion study. Extensive multifocal metastatic disease involving the right breast, right axilla, right subpectoralregion, right supraclavicular region, right paratracheal region, left supraclavicular region, righthilum, and mediastinum. Extensive bone metastases. Scattered lung metastases. - Note: Radiology results need to be interpreted within a comprehensive clinical context. If you have questions about theradiology report, please contact the office of the ordering clinician. ASSESSMENT AND PLAN: Patient is a 64 y.o. female with a PMHx of Atrial Fibrillation, HTN, HLD who is here to follow up regarding diagnosis and treatment of breast cancer. Invasive Ductal Carcinoma of Right Breast, Stage 4 Patient reports having palpable lump in right breast for 2 months prior to presentation. Imaging showing 3 cm mass with calcifications in right breast with two satellite lesions and diffuse right breast thickening. US biopsy with pathology showing right invasive ductal carcinoma of right breast with metastasis to axilla triple positive, G3 and additional mass at 5 with IDC grade 2 with first ER 92%, MN 36%, HER2 3+ and 2nd axillary node ER 91%, MN 45%, HER2 3+, and 2nd breast mass ER 97%, MN 93%, HER2 1+. MRI showing level I and II adenopathy and 1.3 cm mass in left breast from biopsy from 2012. Skin bx negative. PET scan done 02/11/25 showing extensive multifocal metastatic disease in right breast, right axilla, right subpectoral region, right supraclavicular region, right paratracheal region, left supraclavicular region, right hilum, and mediastinum. Extensive bone metastases. Scattered lung metastases. She was ok with forgoing metastatic biopsy to begin treatment. MRI brain negative for intracranial metastasis but did show left frontal bone metastasis. MRI spine showing multifocal spinal metastatic lesions throughout with T5 with compression fracture but no cord compression. Discussed options of TDXd + P vs THP and she has chosen THP approach for hopeful chemo free interval. Has seen radiation oncology as well. Has port placed on 02/27/25 without issue. 03/02/25 update: -Reviewed labs: stable, leukocytosis from steroids, hyperglycemia from steroids -Ok to proceed with C1D1 of THP -Reviewed echo 02/25/25 which was normal, next due in 04/2025 -Discussed supportive measures in detail with her -Port in place -Palliative radiation to begin next week Follow up in 1 week with [facility] [employer] A total of 33 minutes of the encounter was spent in performing the following complex tasks: 1) Reviewing medical records in EPIC and if applicable outside records as well 2) Ordering labs and reviewing results 3) Obtaining history and performing a physical exam 4) Counseling and educating patient, family, and caregiver(s) 5) Ordering medications, labs/tests (including independent interpretation of results when not reported separately), procedures and coordinating care amongst other healthcare professionals 6) Documentation in the EMR After the visit, the patient was given the opportunity to ask questions and all questions were answered to the patient's satisfaction. Patient agrees to the plan as highlighted above in my note and knows when/who to call regarding any concerning symptoms or questions. Maxx Khan MD Hematology/Oncology documented in this encounter Plan of Treatment Upcoming Encounters Date Type Department Care Team (Late st Contact Info) Description 05/01/2025 12:30 PM EST Appointment [facility] Center [place] [id number] Maxx Khan MD [address] [place] [address] [place] [address] 05/04/2025 8:15 AM EST Appointment [facility] [place] [address] 05/04/2025 8:45 AM EST [facility]ment [facility] [place] [address] Maxx Khan MD [address] [place] [address] [address] [place] [id number] 05/04/2025 9:00 AM EST Appointment [facility] [place] [place] [address] 05/28/2025 10:30 AM EST Appointment [facility] [place] [address] Maxx Khan MD [address] [place] [address] [address] [place] [place] [id number] 06/26/2025 10:15 AM EST Appointment [facility] [place] [address] Consuelo Ugarte APRN [address] [facility] [address] [place], [place] [id number] documented as of this encounter Goals Goal Patient Goal Type Associated Problems Recent Progress Patient-Stated? Author [facility] [facility] Yenni Funk, RN Note: Patient acknowledges understanding of new diagnosis, plan of care, available resources and how to contact Nurse Navigator with any future questions or concerns. documented as of this encounter Visit Diagnoses Diagnosis Invasive ductal carcinoma of right breast, stage 4 (HCC)- Primary Encounter for antineoplastic chemotherapy Port-A-Cath in place Other postprocedural status documented in this encounter Care Teams Physician Office Specialist Relationship Specialty Start Date End Date Idania Cobb RN Oncology Nurse Navigator 01/22/25 Maxx Khan MD [address] [facility] [address] [place], [place] [id number] Medical Oncologist Internal Medicine-Medical Oncology 02/18/25 Obdulia Mazariegos, ANTHONY Registered Nurse 02/18/25 Bhavesh Poole MD [address] [place] [address] Radiation Oncologist Radiology-Radiation Oncology 02/24/25 Elena Buck, Clerical Staff Financial Counselor 02/27/25 Francisca Oconnor, ANTHONY Registered Nurse Infusion Therapy 03/02/25 03/02/25 documented as of this encounter
--- OUTSIDE RECORDS SUMMARY | 2025-03-02 07:55 | XMS_ITS | Encounter Summary ---
Author Organization [place] [address] Care Team Providers Care Superintendent Operations Division Name Role Phone Idania Cobb RN Unavailable Maxx Khan MD Unavailable [phone] Obdulia Mazariegos RN Unavailable Unavailable Bhavesh Poole MD Unavailable Elena Buck Clerical Staff Unavailable Francisca Oconnor RN Unavailable Unava ilable Reason for Visit * Reason Comments Follow-up Breast Cancer Chemotherapy Encounter Details Date Type Department Care Team (Latest Contact Info) Description 03/02/2025 7:55 AM EST - 03/02/2025 8:28 AM [facility] Hospital Encounter [place] [address] Maxx Khan MD [address] [place] [address] Invasive ductal carcinoma of right breast, [...] mouth daily. nalOXone (NARCAN) 4 mg/actuation Nasl [place], Non-AerosolIndic ations:Invasive ductal carcinoma of right breast, stage 4 (HCC) 0.1 mL by Nasal route as needed for Opioid Reversal. [place] the contents of one device (0.1mL) into [...] (HCC) - Reports partial nephrectomy 2017 at [place] - States Right Kidney is d/t multiple [...] Surgical Consult with Dr. Jacinto Genetics Negative [employer] Hereditary Cancer Panel (70 genes) CURRENT TREATMENT: [...] IDC grade 2 with first ER 92%, [place] 36%, HER2 3+ and 2nd axillary node ER 91%, IN 45%, HER2 3+, and 2nd breast mass ER 97%, IN 93%, HER2 1+. MRI showing level I [...] week Follow up in 1 week with [facility] [facility] A total of 33 minutes of the [...] Info) Description 05/01/2025 12:30 PM EST Appointment [facility] Center CT [place] [id number] Maxx Khan MD [address] [place] [address] [place] [address] 05/04/2025 8:15 AM EST Appointment [place] [address] 05/04/2025 8:45 AM EST Appointment [facility] [place] [address] Maxx Khan MD [address] [place] [address] [address] [place] [id number] 05/04/2025 9:00 AM EST Appointment [facility] [place] [address] 05/28/2025 10:30 AM EST Appointment [facility] [place] [address] Maxx Khan MD [address] [place] [address] [address] [place] [id number] 06/26/2025 10:15 AM EST Appointment [facility] [place] [place] [address] Consuelo Ugarte APRN [address] [facility] [address] [place], [place] [id number] documented as of this encounter Goals Goal [...] status documented in this encounter Care Teams Superintendent Operations Division Relationship Specialty Start Date End Date Idania Cobb RN Oncology Nurse Navigator 01/22/25 Maxx Khan MD [address] [facility] [address] [place], [place] [id number] Medical Oncologist Internal Medicine-Medical Oncology 02/18/25 Obdulia Mazariegos, ANTHONY Registered Nurse 02/18/25 Bhavesh Poole MD [address] [place] [address] Radiation Oncologist Radiology-Radiation Oncology 02/24/25 Elena Buck, Clerical Staff Financial Counselor 02/27/25 Francisca Oconnor, ANTHONY Registered Nurse Infusion Therapy 03/02/25 03/02/25 documented as of this encounter
--- OUTSIDE RECORDS SUMMARY | 2025-03-02 08:29 | XMS_ITS | Encounter Summary ---
Author Organization [place] [address] Care Team Providers Care Orthopedic Surgeon Name Role Phone Idania Cobb RN Unavailable Maxx Khan MD Unavailable [phone] Obdulia Mazariegos RN Unavailable Unavailable Bhavesh Poole MD Unavailable Elena Buck Clerical Staff Unavailable Francisca Oconnor RN Unavailable Unava ilable Reason for Visit * Oncology Medication Prior Authorization (Routine) - Authorization Not Needed Specialty Diagnoses / Procedures Referred By Contac t Referred To Contact Diagnoses Invasive ductal carcinoma of breast, female, right (HCC) Procedures ONCOLOGY MEDICATION AUTHORIZATION Maxx Khan MD [address] [place] [address] Phone: tel: fax: Maxx Khan MD [address] [place] [address] Phone: tel: fax: Referral ID Status Reason Start Date Expiration Date Visits Requested Visits Authorized [id number] Authorization Not Needed 03/01/2025 03/04/2026 1 20 Encounter Details Date Type Department Care Team (Latest Contact Info) Description 03/02/2025 8:29 AM EST - 03/02/2025 11:59 PM EST Hospital Encounter [facility] [place] [id number] Invasive ductal carcinoma of breast, female, right [...] Sign Reading Time Taken Comments Blood Pressure 151/77 03/02/2025 3:34 PM EST Pulse 86 03/02/2025 3:34 PM EST Temperature - - Respiratory Rate 16 03/02/2025 3:34 PM EST Oxygen Saturation 95% 03/02/2025 3:20 PM EST Inhaled Oxygen Concentration - - Weight - - Height - - Body Mass Index - - documented in this encounter Discharge Instructions * Attachments The following attachments cannot be sent through Care Everywhere. * Pertuzumab (Kosovan) * Trastuzumab (K[place]ovan) * Docetaxel (Kosovan) documented in this encounter Medications at Time [...] mouth daily. nalOXone (NARCAN) 4 mg/actuation Nasl [place], Non-AerosolIndic ations:Invasive ductal carcinoma of right breast, stage 4 (HCC) 0.1 mL by Nasal route as needed for Opioid Reversal. [place] the contents of one device (0.1mL) into [...] documented in this encounter Progress Notes * Avi Irving, [facility] - 03/02/2025 9:30 AM EST Images from the original note were not included. Pharmacy Chemotherapy Pre-Verification Note originated on 02/27/2025. BACKGROUND INFORMATION Rosario Man is a 64 y.o. female being treated for breast cancer. The patient's primary oncologist is Maxx Khan MD. Allergies: Patient has no known allergies. Past Medical History: Diagnosis Date Anxiety 01/02/2025 Bilateral breast cancer (HCC) 01/22/2025 melita Invasive Ductal Carcinoma and positive Right Axillary node High cholesterol 01/02/2025 History of atrial fibrillation normal rhythm since 2017 Hypertension 01/02/2025 Kidney stones 01/02/2025 Obesity (BMI 35.0-39.9 without comorbidity) 01/02/2025 Pharmacy has reviewed treatment plan orders for this cycle of ONC DOCEtaxel (75) + trastuzumab + pertuzumab (THP) Q21D x 8 FOLLOWED by trastuzumab + pertuzumab Q21D CLINICAL INFORMATION Cancer Staging Invasive ductal carcinoma of breast, female, left (HCC) Staging form: Breast, AJCC 8th Edition - Clinical stage from 01/20/2025: Stage IA (cT1c, cN0, cM0, G2, ER+, [place]+, HER2-) - Signed by Tresa Jacinto DO on 02/06/2025 Invasive ductal carcinoma of breast, female, right (HCC) Staging form: Breast, AJCC 8th Edition - Clinical stage from 01/20/2025: Stage IV (cT3, cN1(f), cM1, G3, ER+, DE+, HER2+) - Signed by Tresa Jacinto DO on 02/17/2025 Treatment Hx / pertinent information Hx of RCC (2017, s/p partial nephrectomy) Breast cancer newly Dx Dec 2024, Stage IV IDC of left (ER+, DE+, HER2-) IDC of right (ER+, DE+, HER2+) Mets to bone and lung Planning to start first line THP Baseline neuropathy in feet noted IV Access Central access required: Yes, port placed 02/27/25 Labs / Imaging Labs ordered prior to treatment ECHO/MUGA required: yes, ECHO 02/25/25 --> LVEF 60-65% PGx No applicable pharmacogenomics for this regimen VTE PPX: [place] score: 1 (BMI >=35 (1)) Current PPX: NONE TREATMENT REGIMEN Starting 03/02/2025, if no changes: Cycle 1 Pertuzumab 840 mg IV D1 Trastuzumab 8 mg/kg IV D1 Docetaxel 75 mg/m2 IV D1 Cycles 2-8 Pertuzumab 420 mg IV D1 Trastuzumab 6 mg/kg IV D1 Docetaxel 75 mg/m2 IV D1 Cycles 9+ Pertuzumab 420 mg IV D1 Trastuzumab 6 mg/kg IV D1 cycle length 21 days Oral Chemo NONE SUPPORTIVE CARE Hypersensitivity diphenhydramine 25 mg IV/PO once prior to docetaxel for C1 only unless IRR Antiemetics (low to minimal per NCCN) dexamethasone 12 mg IV/PO D1 ondansetron 8 mg IV/PO D1 dexamethasone 8 mg PO BID day before tx and D1-2 prochlorperazine 10 mg PO Q6H PRN Hydration / Electrolytes NONE Prophylaxis not indicated Febrile Neutropenia Risk Assessment Regimen Risk: low risk (<10%) Patient Risk Factors: bone marrow involvement by tumor Growth factor indicated: No Home meds released? Yes INTERACTIONS Potentially clinically important drug interactions based on available medication list: NONE Thank you, Demetrius Mackey PharmD, MPH 02/27/2025 @ 12:03 PM - - - - - - - - - - - - - - - - - - - - - - - - - - - - - - - - - - 03/02/2025 2nd Chemotherapy Verification - Labs are within treatment parameters. - Doses are as expected. Independently calculated and verified. - Reviewed Tx plan, Notes. - Weight/BSA is within 10% of treatment plan weight/BSA. - Will proceed with treatment as planned. Avi Irving, PharmD BCOP documented in this encounter Miscellaneous Notes * Patient Instructions - Francisca Oconnor RN - 03/02/2025 9:30 AM EST [facility] Discharge Instructions Thank you for entrusting the [facility] with your care. We hope you are pleased with your outpatient care and services. Because we are most concerned with your health, we suggest you carefully read the following discharge instructions: Your Discharge Instructions: MEDICATION INSTRUCTIONS: Treatment received today: Orders Placed This Encounter Treatment Conditions Oncology MD OK To Treat [NC]: An observation period of 30 to 60 minutes is recommended after each PERJETA infusion and before commencement of any subsequent infusion of trastuzumab or other chemo. 0.9 % NaCl infusion ondansetron (ZOFRAN) injection 8 mg dexAMETHasone (DECADRON) tablet 12 mg diphenhydrAMINE (BENADRYL) injection 25 mg prochlorperazine edisylate (COMPAZINE) injection 10 mg pertuzumab (PERJETA) 840 mg in sodium chloride 0.9 % 250 mL chemo infusion trastuzumab-anns (KANJINTI) 860 mg in sodium chloride 0.9 % 250 mL chemo infusion DOCEtaxeL (TAXOTERE) 160 mg in sodium chloride 0.9 % 250 mL chemo infusion sodium chloride 0.9% syringe 10 mL heparin flush 100 unit/mL injection 500 Units Reviewed medications administered today and possible side effects Dizziness and sleepiness are possible side effects of pain medication. When taking pain medications, do not drink alcohol or drive. ACTIVITY INSTRUCTIONS: Rest today, increase activity as tolerated. DIET INSTRUCTIONS: Resume home diet FOLLOW-UP CARE: Call your doctor for a follow-up appointment: Notify physician for complications such as: Fever over 101*, Rash, Hives, difficulty breathing, unrelieved nausea or pain, redness or swelling in one limb greater than the other, constipation, diarrhea, bleeding Please contact your physician if you have problems related to your procedure or if symptoms persistor worsen. If physician is unavailable, go to the Emergency Room. If you develop any of the following : nausea, vomiting, fatigue, fever of 100.4 or higher, diarrhea, pain or any signs or symptoms of infection DON'T WAIT, PLEASE CALL US FIRST [phone]. [FOR URGENT ISSUES PLEASE DO NOT LEAVE A MESSAGE, FOLLOW PROMPTS TO THE DOCTOR TRAFFIC SAFETY ADMINISTRATOR] For Gynecology / Oncology call : [phone] Our hours of operation are Sunday - Sunday 8:00 AM - 4:30 PM. [facility] [place] [address] 928 [phone] [address] Results for orders placed or performed during the hospital encounter of 03/02/25 MAGNESIUM LEVEL Result Value Ref Range Magnesium 2.1 1.6 - 2.4 mg/dL CBC WITH DIFF Result Value Ref Range WBC 14.8 (H) 3.7 - 10.3 x10(3)/mcL RBC 5.00 3.90 - 5.20 x10(6)/mcL Hgb 14.7 11.2 - 15.7 g/dL Hct 43.3 34.0 - 45.0 % MCV 86.6 80.0 - 100.0 fL MCH 29.4 26.0 - 34.0 pg MCHC 33.9 30.7 - 35.5 g/dL RDW 12.7 <=14.9 % Platelet 300 155 - 369 x10(3)/mcL MPV 9.1 8.8 - 12.5 fL Neut # Prelim 12.7 (H) 1.6 - 6.1 x10(3)/mcL Neut Percent 86.1 % Imm Gran% 1.3 % Lymph Percent 10.4 % [place] Percent 2.1 % Eos Percent 0.0 % Baso Percent 0.1 % Neut # 12.7 (H) 1.6 - 6.1 x10(3)/mcL IMMGRAN# 0.2 (H) 0.0 - 0.1 x10(3)/mcL Lymph # 1.5 1.2 - 3.9 x10(3)/mcL [place] # 0.3 0.3 - 0.9 x10(3)/mcL Eos# 0.0 0.0 - 0.5 x10(3)/mcL Baso # 0.0 0.0 - 0.1 x10(3)/mcL COMPREHENSIVE METABOLIC PANEL Result Value Ref Range Sodium 137 136 - 145 mmol/L Potassium 3.9 3.5 - 5.0 mmol/L Chloride 102 98 - 107 mmol/L Total CO2 19 (L) 22 - 29 mmol/L Anion Gap 16 7 - 16 mmol/L Calcium 10.3 8.8 - 10.4 mg/dL Glucose Lvl 204 (H) 70 - 99 mg/dL BUN 21 8 - 23 mg/dL Creatinine 0.75 0.51 - 1.30 mg/dL Albumin 4.4 3.2 - 4.6 gm/dL Total Protein 7.7 6.4 - 8.3 gm/dL Bili Total 0.4 0.2 - 1.3 mg/dL ALT 25 <=41 U/L AST 23 <=40 U/L Alk Phos 115 36 - 123 U/L eGFR (CKD-EPIcr 2020) 88 >=60 mL/min/1.73 m2 documented in this encounter Plan of Treatment Upcoming Encounters Date Type Department Care Team (Late st Contact Info) Description 05/01/2025 12:30 PM EST Appointment [facility] [[email or web address]] [place] [address] Maxx Khan MD [address] [place] [address] [place] [address] 05/04/2025 8:15 AM EST Appointment [place] [address] 05/04/2025 8:45 AM EST [facility]ment [facility] [place] [address] Maxx Khan MD [address] [place] [address] [address] [place], [place] [id number] 05/04/2025 9:00 AM EST Appointment [facility] [place], [place] [id number] 05/28/2025 10:30 AM EST Appointment [facility] [place] [address] Maxx Khan MD [address] [place] [address] [place] [address] 06/26/2025 10:15 AM EST Appointment [facility] [address] Consuelo Ugarte, LEIF [address] [place] [address] [place] [address] documented as of this encounter Goals Goal Patient Goal Type Associated Problems Recent Progress Patient-Stated? Author Breast [facility] Breast [facility] Yenni Funk RN Note: Patient acknowledges understanding [...] Site 0.9 % NaCl infusion Intravenous, at 30 mL/hr, CONTINUOUS, Starting on Sun03/02/25 at 0900, Until Sun03/03/25 at 0415, For sewing line baler during chemotherapy infusion., Dx: 1. Invasive ductal carcinoma of breast, female, right (HCC)Indications:Invasive ductal carcinoma of breast, female, right (HCC) Rate/Dose Change 03/02/2025 3:21 PM EST 200 mL/hr dexAMETHasone (DECADRON) tablet 12 mg 12 mg, Oral, ONCE, 1 dose, On Sun03/02/25 at 0900, Dx: 1. Invasive ductal carcinoma of breast, female, right (HCC)Indications:Invasive ductal carcinoma of breast, female, right (HCC) Given 03/02/2025 9:08 AM EST 12 mg diphenhydrAMINE (BENADRYL) injection 25 mg 25 mg, Intravenous, ONCE, 1 dose, On Sun03/02/25 at 0900, Dx: 1. Invasive ductal carcinoma of breast, female, right (HCC)Indications:Invasive ductal carcinoma of breast, female, right (HCC) Given 03/02/2025 9:08 AM EST 25 mg diphenhydrAMINE (BENADRYL) injection 25 mg 25 mg, Intravenous, PRN, 1 dose, Starting on Sun03/02/25 at 1334, Until Sun03/02/25 at 1335, Anaphylaxis, Give IVP for anaphylaxis if patient did receive diphenhydramine as a pre-medication., Dx: 1. Invasive ductal carcinoma of breast, female, right (HCC)Indications:Invasive ductal carcinoma of breast, female, right (HCC) Given 03/02/2025 1:35 PM EST 25 mg DOCEtaxeL (TAXOTERE) 160 mg in sodium chloride 0.9 % 250 mL chemo infusion 160 mg (rounded from 158.25 mg = 75 mg/m2 2.11 m2 Treatment Plan BSA from Recorded weight), Intravenous, at 50-300 mL/hr, ONCE, 1 dose, On Sun03/02/25 at 1230, Follow Chemotherapy Precautions (Caution - Irritant) Infuse 50 mL/hr x 15 min, 100 mL/hr x 15 min, to a max of 200 mL/hr. Vitals before each rate increase., Dx: 1. Invasive ductal carcinoma of breast, female, right (HCC)Indications:Invasive ductal carcinoma of breast, female, right (HCC) Rate/Dose Change 03/02/2025 2:15 PM EST 200 mL/hr famotidine (PEPCID) injection 20 mg 20 mg, Intravenous, PRN, 1 dose, Starting on Sun03/02/25 at 1334, Until Sun03/02/25 at 1335, Other, Anaphylaxis, Dx: 1. Invasive ductal carcinoma of breast, female, right (HCC)Indications:Invasive ductal carcinoma of breast, female, right (HCC) Given 03/02/2025 1:35 PM EST 20 mg heparin flush 100 unit/mL injection 500 Units 500 Units, Intravenous, PRN, Starting on Sun03/02/25 at 0849, Until Sun03/03/25 at 0415, Line Care, For Venous Access Device care and maintenance., Dx: 1. Invasive ductal carcinoma of breast, female, right (HCC)Indications:Invasive ductal carcinoma of breast, female, right (HCC) Given 03/02/2025 3:35 PM EST 500 Units ondansetron (ZOFRAN) injection 8 mg 8 mg, Intravenous, ONCE, 1 dose, On Sun03/02/25 at 0900, Dx: 1. Invasive ductal carcinoma of breast, female, right (HCC)Indications:Invasive ductal carcinoma of breast, female, right (HCC) Given 03/02/2025 9:08 AM EST 8 mg pertuzumab (PERJETA) 840 mg in sodium chloride 0.9 % 250 mL chemo infusion 840 mg, Intravenous, at 303 mL/hr, ONCE, 1 dose, On Sun03/02/25 at 0930, Incompatible with D5W., Dx: 1. Invasive ductal carcinoma of breast, female, right (HCC)Indications:Invasive ductal carcinoma of breast, female, right (HCC) IV Started 03/02/2025 9:41 AM EST 840 mg 303 mL/hr sodium chloride 0.9% syringe 10 mL 10 mL, Intravenous, PRN, Starting on Sun03/02/25 at 0849, Until Sun03/03/25 at 0415, Line Care, For Venous Access Device care and maintenance., Dx: 1. Invasive ductal carcinoma of breast, female, right (HCC)Indications:Invasive ductal carcinoma of breast, female, right (HCC) Given 03/02/2025 3:35 PM EST 10 mL trastuzumab-anns (KANJINTI) 860 mg in sodium chloride 0.9 % 250 mL chemo infusion 860 mg (rounded from 864 mg = 8 mg/kg 108 kg Treatment plan Recorded weight), Intravenous, ONCE, 1 dose, On Sun03/02/25 at 1100, Administer over 90 Minutes, NOT compatible with D5W. Initial infusion over 90 minutes; Subsequent doses may be infused over 30 minutes if previous infusions well-tolerated, Dx: 1. Invasive ductal carcinoma of breast, female, right (HCC)Indications:Invasive ductal carcinoma of breast, female, right (HCC) IV Started 03/02/2025 11:18 AM EST 860 mg 210.7 mL/hr documented in this encounter Orders Medications Ordered That Demetrio ht Not Have Been Administered Count Last Ordered Date First Ordered Date prochlorperazine edisylate ( COMPAZINE) injection 10 mg 1 03/02/2025 documented in this encounter Care Teams Orthopedic Surgeon Relationship Specialty Start Date End Date Idania Cobb RN Oncology Nurse Navigator 01/22/25 Maxx Khan MD [address] [place] [address] Medical Oncologist Internal Medicine-Medical Oncology 02/18/25 Obdulia Mazariegos, ANTHONY Registered Nurse 02/18/25 Bhavesh Poole MD [address] [place] [address] Radiation Oncologist Radiology-Radiation Oncology 02/24/25 Elena Buck, Clerical Staff Financial Counselor 02/27/25 Francisca Oconnor, ANTHONY Registered Nurse Infusion Therapy 03/02/25 03/02/25 documented as of this encounter
--- OUTSIDE RECORDS SUMMARY | 2025-03-02 08:29 | XMS_ITS | Encounter Summary ---
Author Organization [place] [address] Care Team Providers Care Manager Process Name Role Phone Idania Cobb RN Unavailable Maxx Khan MD Unavailable Obdulia Mazariegos RN Unavailable Unavailable Bhavesh Poole MD Unavailable Elena Buck Clerical Staff Unavailable Francisca Oconnor RN Unavailable Unava ilable Reason for Visit * Oncology Medication Prior Authorization (Routine) - Authorization Not Needed Specialty Diagnoses / Procedures Referred By Contac t Referred To Contact Diagnoses Invasive ductal carcinoma of breast, female, right (HCC) Procedures ONCOLOGY MEDICATION AUTHORIZATION Maxx Khan MD [address] [place] [address] Phone: tel: fax: Maxx Khan MD [address] [place] [address] Phone: tel: fax: Referral ID Status Reason Start Date Expiration Date Visits Requested Visits Authorized [id number] Authorization Not Needed 03/01/2025 03/04/2026 1 20 Encounter Details Date Type Department Care Team (Latest Contact Info) Description 03/02/2025 8:29 AM EST - 03/02/2025 11:59 PM EST Hospital Encounter [facility] [place] [id number] Invasive ductal carcinoma of breast, female, right [...] be sent through Care Everywhere. * Pertuzumab (Sudanese) * Trastuzumab (Sudanese) * Docetaxel (Sudanese) documented in this encounter Medications at Time [...] mouth daily. nalOXone (NARCAN) 4 mg/actuation Nasl [place], Non-AerosolIndic ations:Invasive ductal carcinoma of right breast, stage 4 (HCC) 0.1 mL by Nasal route as needed for Opioid Reversal. [place] the contents of one device (0.1mL) into [...] this encounter Progress Notes * Avi Irving, [facility] - 03/02/2025 9:30 AM EST Images from [...] Stage IA (cT1c, cN0, cM0, G2, ER+, [place]+, HER2-) - Signed by Tresa Jacinto DO on 02/06/2025 Invasive ductal carcinoma of breast, female, right (HCC) Staging form: Breast, AJCC 8th Edition - Clinical stage from 01/20/2025: Stage IV (cT3, cN1(f), cM1, G3, ER+, MA+, HER2+) - Signed by Tresa Jacinto DO on 02/17/2025 Treatment Hx / pertinent information Hx of RCC (2017, s/p partial nephrectomy) Breast cancer newly Dx Dec 2024, Stage IV IDC of left (ER+, MA+, HER2-) IDC of right (ER+, MA+, HER2+) Mets to bone and lung Planning [...] Oconnor RN - 03/02/2025 9:30 AM EST [facility] Discharge Instructions Thank you for entrusting the [facility] with your care. We hope you are [...] infection DON'T WAIT, PLEASE CALL US FIRST [phone]. [FOR URGENT ISSUES PLEASE DO NOT LEAVE A MESSAGE, FOLLOW PROMPTS TO THE DOCTOR ELECTRIC METER TESTER SHOP] For Gynecology / Oncology call : [phone] Our hours of operation are Sunday - Sunday 8:00 AM - 4:30 PM. [facility] [place] [address] 992 [phone] [address] Results for orders placed or [...] Gran% 1.3 % Lymph Percent 10.4 % [place] Percent 2.1 % Eos Percent 0.0 % Baso Percent 0.1 % Neut # 12.7 (H) 1.6 - 6.1 x10(3)/mcL IMMGRAN# 0.2 (H) 0.0 - 0.1 x10(3)/mcL Lymph # 1.5 1.2 - 3.9 x10(3)/mcL [place] # 0.3 0.3 - 0.9 x10(3)/mcL Eos# [...] [facility] [place] [address] Maxx Khan MD [address] [place] [address] [place] [address] 05/04/2025 8:15 AM EST Appointment [place] [address] 05/04/2025 8:45 AM EST [facility]ointment [facility] [place] [address] Maxx Khan MD [address] [place] [address] [address] [place], [place] [id number] 05/04/2025 9:00 AM EST Appointment [facility] [place], [place] [id number] 05/28/2025 10:30 AM EST Appointment [facility] [address] Maxx Khan MD [address] [place] [address] [place] [address] 06/26/2025 10:15 AM EST Appointment [place] [address] Consuelo Ugarte, LEIF [address] [place] [address] [place] [address] documented as of this encounter Goals Goal Patient Goal Type Associated Problems Recent Progress Patient-Stated? Author Breast [facility] Breast [facility] Yenni Funk RN Note: Patient acknowledges understanding [...] at 0900, Until Sun03/03/25 at 0415, For line operator during chemotherapy infusion., Dx: 1. Invasive ductal [...] 03/02/2025 documented in this encounter Care Teams Manager Process Relationship Specialty Start Date End Date Idania Cobb RN Oncology Nurse Navigator 01/22/25 Maxx Khan MD [address] [place] [address] Medical Oncologist Internal Medicine-Medical Oncology 02/18/25 Obdulia Mazariegos, ANTHONY Registered Nurse 02/18/25 Bhavesh Poole MD [address] [place] [address] Radiation Oncologist Radiology-Radiation Oncology 02/24/25 Elena Buck, Clerical Staff Financial Counselor 02/27/25 Francisca Oconnor, ANTHONY Registered Nurse Infusion Therapy 03/02/25 03/02/25 documented as of this encounter
--- OUTSIDE RECORDS SUMMARY | 2025-03-09 13:15 | XMS_ITS | Encounter Summary ---
Author Organization [place] [address] Care Team Providers Care Tax Appraiser Name Role Phone Idania Cobb RN Unavailable Maxx Khan MD Unavailable [phone] Obdulia Mazariegos RN Unavailable Unavailable Bhavesh Poole MD Unavailable Elena Buck Clerical Staff Unavailable Encounter Details Date Type Department Care Team (Latest Contact Info) Description 03/09/2025 1:15 PM EST - 03/09/2025 1:29 PM EST Hospital Encounter [place] [address] Invasive ductal carcinoma of breast, female, left (HCC) (Primary Dx); Invasive ductal carcinoma of breast, female, right (HCC) Discharge Disposition: Home or Self Care [...] mouth daily. nalOXone (NARCAN) 4 mg/actuation Nasl [place], Non-AerosolIndic ations:Invasive ductal carcinoma of right breast, stage 4 (HCC) 0.1 mL by Nasal route as needed for Opioid Reversal. [place] the contents of one device (0.1mL) into [...] Info) Description 05/01/2025 12:30 PM EST Appointment [facility] [place] [address] Maxx Khan MD [address] [place] [address] 05/04/2025 8:15 AM EST Appointment [facility] [place], [place] [id number] 05/04/2025 8:45 AM EST [facility]ment [facility] [place] [address] Maxx Khan MD [address] [facility] [address] [place] [address] 05/04/2025 9:00 AM EST Appointment [facility] [place] [address] 05/28/2025 10:30 AM EST Appointment [facility] [address] [place] [address] Maxx Khan MD [address] [facility] [address] 06/26/2025 10:15 AM EST Appointment [facility] [place] [place] [address] Consuelo Ugarte APRN [address] [facility] [place]URI [place] [address] documented as of this encounter Goals Goal Patient Goal Type Associated Problems Recent Progress Patient-Stated? Author [facility] Yenni Funk, RN Note: Patient acknowledges understanding of new diagnosis, plan of care, available resources and how to contact Nurse Navigator with any future questions or concerns. documented as of this encounter Procedures Procedure Name Priority Date/Time Associated Diagnosis Comments CBC WITH DIFF STAT 03/09/2025 1:32 PM EST Invasive ductal carcinoma of breast, female, right (HCC) COMPREHENSIVE METABOLIC PANEL STAT 03/09/2025 1:32 PM EST Invasive ductal carcinoma of breast, female, right (HCC) documented in this encounter Results * (ABNORMAL) COMPREHENSIVE METABOLIC PANEL (03/09/2025 1:32 PM EST) Pathologist [facility] Sodium 139 136 - 145 mmol/L 03/09/2025 1:51 PM EST [facility] Potassium 4.2 3.5 - 5.0 mmol/L 03/09/2025 1:51 PM [facility] Chloride 106 98 - 107 mmol/L 03/09/2025 1:51 PM [facility] Total CO2 21(L) 22 - 29 mmol/L 03/09/2025 1:51 PM [facility] Anion Gap 12 7 - 16 mmol/L 03/09/2025 1:51 PM [facility] Calcium 8.9 8.8 - 10.4 mg/dL 03/09/2025 1:51 PM [facility] Glucose Lvl 122(H) 70 - 99 mg/dL 03/09/2025 1:51 PM [facility] BUN 20 8 - 23 mg/dL 03/09/2025 1:51 PM [facility] Creatinine 0.82 0.51 - 1.30 mg/dL 03/09/2025 1:51 PM [facility] Albumin 3.6 3.2 - 4.6 gm/dL 03/09/2025 1:51 PM [facility] Total Protein 6.2(L) 6.4 - 8.3 gm/dL 03/09/2025 1:51 PM [facility] Bili Total 0.4 0.2 - 1.3 mg/dL 03/09/2025 1:51 PM [facility] ALT 43(H) <=41 U/L 03/09/2025 1:51 PM [facility] AST 22 <=40 U/L 03/09/2025 1:51 PM [facility] Alk Phos 98 36 - 123 U/L 03/09/2025 1:51 PM [facility] eGFR (CKD-EPIcr 2020) 79 >=60 mL/min/1.7 3 m2 03/09/2025 1:51 PM [facility] Comment:Estimated GFR was ca lculated using the CKD-EPIcr (2020) equation refit without race. The equation is recommended by the National Kidney Foundation - [place] [employer] of Nephrology Task Force. Blood VENOUS STRUCTURE / Unknown Port / Unknown 03/09/2025 1:32 PM EST 03/09/2025 1:32 PM EST us Esperanza Monsalve FISHING ROD TRIMMER CHEMISTRY ORDERABLES Final Res ult [facility] [address] [place] [address] * (ABNORMAL) CBC WITH DIFF (03/09/2025 1:32 PM EST) WBC 1.0(LL) 3.7 - 10.3 x10(3)/mc L 03/09/2025 3:28 PM EST [facility] Comment:This is an appended report. These results have been appended to a previously preliminary verified report. RBC 4.57 3.90 - 5.20 x10(6)/mc L 03/09/2025 3:28 PM EST [facility] Hgb 13.3 11.2 - 15.7 g/dL 03/09/2025 3:28 PM EST [facility] Hct 40.4 34.0 - 45.0 % 03/09/2025 3:28 PM EST [facility] MCV 88.4 80.0 - 100.0 fL 03/09/2025 3:28 PM EST [facility] MCH 29.1 26.0 - 34.0 pg 03/09/2025 3:28 PM EST [facility] MCHC 32.9 30.7 - 35.5 g/dL 03/09/2025 3:28 PM EST [facility] RDW 13.0 <=14.9 % 03/09/2025 3:28 PM EST [facility] Platelet 249 155 - 369 x10(3)/mc L 03/09/2025 3:28 PM EST [facility] Comment:This is an appended report. These results have been appended to a previously preliminary verified report. MPV 9.7 8.8 - 12.5 fL 03/09/2025 3:28 PM EST [facility] Comment:This is an appended report. These results have been appended to a previously preliminary verified report. Segs 4 % 03/09/2025 3:28 PM EST [facility] Lymphs 76 % 03/09/2025 3:28 PM EST [facility] Monos 15 % 03/09/2025 3:28 PM EST [facility] Eos 3 % 03/09/2025 3:28 PM EST [facility] Baso 2 % 03/09/2025 3:28 PM EST [facility] Neut # 0.0(LL) 1.6 - 6.1 x10(3)/mc L 03/09/2025 3:28 PM EST [facility] Lymph # 0.8(L) 1.2 - 3.9 x10(3)/mc L 03/09/2025 3:28 PM EST [facility] [place] # 0.2(L) 0.3 - 0.9 x10(3)/mc L 03/09/2025 3:28 PM EST [facility] Eos # Manual 0.0 0.0 - 0.5 x10(3)/mc L 03/09/2025 3:28 PM EST [facility] Baso # Manual 0.0 0.0 - 0.1 x10(3)/mc L 03/09/2025 3:28 PM EST [facility] Ovalocyte Occasional 03/09/2025 3:28 PM EST [facility] Juan Luis Cell Occasional 03/09/2025 3:28 PM EST [facility] Blood VENOUS STRUCTURE / Unknown Port / Unknown 03/09/2025 1:32 PM EST 03/09/2025 1:32 PM EST Esperanza Monsalve FISHING ROD TRIMMER HEMATOLOGY ORDERABLES Final Re sult [facility] [address] [facility] , [place] [address] documented in this encounter Visit Diagnoses Diagnosis Invasive ductal carcinoma of breast, female, left (HCC)- Primary Invasive ductal carcinoma of breast, female, right (HCC) documented in this encounter Administered Medications Inactive Administered Medications - up to 1 most recent administrations Medication Order MAR Action Action Date Dose Rate Site heparin flush 100 unit/mL injection 500 Units 500 Units, Intravenous, PRN, Starting on Sun03/09/25 at 1324, Until Sun03/10/25 at 0414, Line Care, For Venous Access Device care and maintenance., Dx: 1. Invasive ductal carcinoma of breast, female, left (HCC)Indications:Invasive ductal carcinoma of breast, female, left (HCC) Given 03/09/2025 1:34 PM EST 500 Units sodium chloride 0.9 % sterile syringe Intravenous, PRN, Starting on 03/09/25 at 1324, Until 03/10/25 at 0414, Line Care, For initial access of Venous Access Device., Dx: 1. Invasive ductal carcinoma of breast, female, left (HCC)Indications:Invasive ductal carcinoma of breast, female, left (HCC) Given 03/09/2025 1:34 PM EST 10 mL documented in this encounter Care Teams Tax Appraiser Relationship Specialty Start Date End Date Idania Cobb RN Oncology Nurse Navigator 01/22/25 Maxx Khan MD 1 [place] [address] Medical Oncologist Internal Medicine-Medical Oncology 02/18/25 Obdulia Mazariegos, RN Registered Nurse 02/18/25 Bhavesh Poole MD 1 [place] [address] Radiation Oncologist Radiology-Radiation Oncology 02/24/25 Elena Buck, Clerical Staff Financial Counselor 02/27/25 documented as of this encounter
--- OUTSIDE RECORDS SUMMARY | 2025-03-09 13:15 | XMS_ITS | Encounter Summary ---
Author Organization [place] [address] Care Team Providers Care Cylinder Valve Repairer Name Role Phone Idania Cobb RN Unavailable Maxx Khan MD Unavailable [phone] Obdulia Mazariegos RN Unavailable Unavailable hBavesh Poole MD Unavailable Elena Buck Clerical Staff Unavailable Encounter Details Date Type Department Care Team (Latest Contact Info) Description 03/09/2025 1:15 PM EST - 03/09/2025 1:29 PM EST Hospital Encounter [place] [address] Invasive ductal carcinoma of breast, [...] mouth daily. nalOXone (NARCAN) 4 mg/actuation Nasl [place], Non-AerosolIndic ations:Invasive ductal carcinoma of right breast, stage 4 (HCC) 0.1 mL by Nasal route as needed for Opioid Reversal. [place] the contents of one device (0.1mL) into [...] Info) Description 05/01/2025 12:30 PM EST Appointment [facility] [place] [address] Maxx Khan MD [address] [place] [address] 05/04/2025 8:15 AM EST Appointment [facility] [place], [place] [id number] 05/04/2025 8:45 AM EST [facility]ment [facility] [place] [address] Maxx Khan MD [address] [facility] [address] [place] [address] 05/04/2025 9:00 AM EST Appointment [place] [address] 05/28/2025 10:30 AM EST Appointment [facility] [address] [place] [address] Maxx Khan MD [address] [place] [address] 06/26/2025 10:15 AM EST Appointment [facility] [place] [address] Consuelo Ugarte APRN [address] [facility] [place]URI [place] [address] documented as of this encounter Goals Goal Patient Goal Type Associated Problems Recent Progress Patient-Stated? Author [facility] Yenni Funk, RN Note: [...] METABOLIC PANEL (03/09/2025 1:32 PM EST) Pathologist [facility] Sodium 139 136 - 145 mmol/L 03/09/2025 1:51 PM EST [facility] Potassium 4.2 3.5 - 5.0 mmol/L 03/09/2025 1:51 PM [facility] Chloride 106 98 - 107 mmol/L 03/09/2025 1:51 PM [facility] Total CO2 21(L) 22 - 29 mmol/L 03/09/2025 1:51 PM [facility] Anion Gap 12 7 - 16 mmol/L 03/09/2025 1:51 PM [facility] Calcium 8.9 8.8 - 10.4 mg/dL 03/09/2025 1:51 PM [facility] Glucose Lvl 122(H) 70 - 99 mg/dL 03/09/2025 1:51 PM [facility] BUN 20 8 - 23 mg/dL 03/09/2025 1:51 PM [facility] Creatinine 0.82 0.51 - 1.30 mg/dL 03/09/2025 1:51 PM [facility] Albumin 3.6 3.2 - 4.6 gm/dL 03/09/2025 1:51 PM [facility] Total Protein 6.2(L) 6.4 - 8.3 gm/dL 03/09/2025 1:51 PM [facility] Bili Total 0.4 0.2 - 1.3 mg/dL 03/09/2025 1:51 PM [facility] ALT 43(H) <=41 U/L 03/09/2025 1:51 PM [facility] AST 22 <=40 U/L 03/09/2025 1:51 PM [facility] Alk Phos 98 36 - 123 U/L 03/09/2025 1:51 PM [facility] eGFR (CKD-EPIcr 2020) 79 >=60 mL/min/1.7 3 m2 03/09/2025 1:51 PM [facility] Comment:Estimated GFR was ca lculated using the CKD-EPIcr (2020) equation refit without race. The equation is recommended by the National Kidney Foundation - [place] [employer] of Nephrology Task Force. Blood VENOUS STRUCTURE / Unknown Port / Unknown 03/09/2025 1:32 PM EST 03/09/2025 1:32 PM EST us Esperanza Monsalve FITTING ROOM ATTENDANT CHEMISTRY ORDERABLES Final Res ult [facility] [address] [place] [address] * (ABNORMAL) CBC WITH DIFF (03/09/2025 [...] 3:28 PM EST [facility] [place] # 0.2(L) 0.3 - 0.9 x10(3)/mc L [...] EST 03/09/2025 1:32 PM EST Esperanza Monsalve FITTING ROOM ATTENDANT HEMATOLOGY ORDERABLES Final Re sult [facility] [address] [facility] , [place] [address] documented in this encounter Visit [...] mL documented in this encounter Care Teams Cylinder Valve Repairer Relationship Specialty Start Date End Date Idania Cobb RN Oncology Nurse Navigator 01/22/25 Maxx Khan MD 1 [place] [address] Medical Oncologist Internal Medicine-Medical Oncology 02/18/25 Obdulia Mazariegos, RN Registered Nurse 02/18/25 Bhavesh Poole MD 1 [place] [address] Radiation Oncologist Radiology-Radiation Oncology 02/24/25 Elena Buck, Clerical Staff Financial Counselor 02/27/25 documented as of this encounter
--- OUTSIDE RECORDS SUMMARY | 2025-03-09 13:30 | XMS_ITS | Encounter Summary ---
Author Organization [place] [address] Care Team Providers Care Army Officer Name Role Phone Idania Cobb RN Unavailable Maxx Khan MD Unavailable [phone] Obdulia Mazariegos RN Unavailable Unavailable Bhavesh Poole MD Unavailable Elena Buck Clerical Staff Unavailable Reason for Visit * Reason Comments Follow-up Invasive ductal carc inoma of right breast, stage 4 Encounter Details Date Type Department Care Team (Latest Contact Info) Description 03/09/2025 1:30 PM EST - 03/09/2025 11:59 PM EST Hospital Encounter [facility] [place] [id number] Esperanza Monsalve APRN [address] [place], [place] [id number] Invasive ductal carcinoma of breast, female, right (HCC) (Primary Dx); Chemotherapy-induce d nausea; Chemotherapy follow-up examination; Chemotherapy induced neutropenia Discharge Disposition: Home or Self Care Social History Tobacco Use Types Packs/Day Years Used Date Smoking Tobacco: Former Cigarettes Q uit: 2013 Smokeless Tobacco: Never Tobacco Cessation:Counseling Given: Not Answered Alcohol Use Standard Drinks/Week Comments Never 0 [...] Sign Reading Time Taken Comments Blood Pressure 149/74 03/09/2025 1:35 PM EST Pulse 97 03/09/2025 1:35 PM EST Temperature 37 C (98.6 F) 03/09/2025 1:35 PM EST Respiratory Rate 16 03/09/2025 1:35 PM EST Oxygen Saturation 97% 03/09/2025 1:35 PM EST Inhaled Oxygen Concentration - - Weight 105.6 kg (232 lb 11.2 oz) 03/09/2025 1:35 PM EST Height 162.6 cm (5' 4 ) 03/09/2025 1:35 PM EST Body Mass Index 39.94 03/09/2025 1:35 PM EST documented in this encounter Medications at [...] mouth daily. nalOXone (NARCAN) 4 mg/actuation Nasl [place], Non-AerosolIndic ations:Invasive ductal carcinoma of right breast, stage 4 (HCC) 0.1 mL by Nasal route as needed for Opioid Reversal. [place] the contents of one device (0.1mL) into one nostril upon signs of opioid overdose. Call 911. May repeat dose in other nostril if no response within 2-3 minutes. 1 Each 02/18/2025 ondansetron (ZOFRAN) 4 mg Oral TabletIndication s:Invasive ductal carcinoma of breast, female, right (HCC),Chemothera py-induced nausea Take 1 Tablet by mouth every 6 hours as needed for Nausea. 30 Tablet 1 03/09/2025 prochlorperazine (COMPAZINE) 10 mg Oral TabletIndication s:Invasive [...] 1 02/18/2025 documented as of this encounter Ordered Prescriptions Prescription Sig Dispense Quantity Refills Last Filled Start Date End Date ondansetron (ZOFRAN) 4 mg Oral TabletIndications:I nvasive ductal carcinoma of breast, female, right (HCC),Chemotherapy- induced nausea Take 1 Tablet by mouth every 6 hours as needed for Nausea. 30 Tablet 1 03/09/2025 documented in this encounter Discharge Disposition Disposition Code Departure Means Destination Home or Self Care documented in this encounter Progress Notes * Esperanza Monsalve, PALLET ASSEMBLER - 03/09/2025 1:30 PM EST Images from the original note were not included. ONCOLOGY FOLLOW-UP: Primary Oncologist: Maxx Khan MD ONCOLOGY PROBLEM LIST: Oncology History Renal cell cancer, left (HCC) 2017 Initial Diagnosis - Renal cell cancer, left (HCC) - Reports partial nephrectomy 2017 at [place] - States Right Kidney is d/t multiple [...] Surgical Consult with Dr. Jacinto Genetics Negative [employer] Hereditary Cancer Panel (70 genes) CURRENT TREATMENT: C1D1 THP on 03/02/25 INTERVAL HISTORY: Ms. Man is a 64 y.o. female who is here for follow up given recent start of systemic chemo. No fever or chills. Denies n/v/d/c. Denies urinary symptoms. Denies cough, sore throat. Fatigued. No abdominal pain. PHYSICAL EXAM: Vitals: 03/09/25 1335 BP: 149/74 Pulse: 97 Resp: 16 Temp: 98.6 ??F (37 ??C) SpO2: 97% Wt Readings from Last 3 Encounters: 03/09/25 232 lb 11.2 oz (105.6 kg) 03/02/25 236 lb 11.2 oz (107.4 kg) 02/27/25 237 lb (107.5 kg) GENERAL APPEARANCE: Alert & Cooperative, Oriented X 3, respiratations CTA and effort normal. Noerythema or exudate oropharynx, NAD, no rash. Abdomen non tender. LABS: CBC: Lab Results Component Value Date/Time WBC 14.8 (H) 03/02/2025 07:54 AM RBC 5.00 03/02/2025 07:54 AM PLT 300 03/02/2025 07:54 AM CMP: Lab Results Component Value Date NA 139 03/09/2025 K 4.2 03/09/2025 CL 106 03/09/2025 CO2 21 (L) 03/09/2025 ANIONGAP 12 03/09/2025 CALCIUM 8.9 03/09/2025 GLU 122 (H) 03/09/2025 BUN 20 03/09/2025 CREATININE 0.82 03/09/2025 ALBUMIN 3.6 03/09/2025 PROT 6.2 (L) 03/09/2025 LABBILI 0.4 03/09/2025 ALT 43 (H) 03/09/2025 AST 22 03/09/2025 IMAGING/Testing All relevant images were reviewed in [...] Has port placed on 02/27/25 without issue. 03/09/25 update: -Reviewed labs: significant neutropenia. At time of visit lab informed prelim , final result with ANC 0 , STRESSED IMMUNOCOMPROMISED STATE AND NEUTROPENIC PRECAUTIONS. Call / ED for fever and elevation in temperature. Patient without insurance and concern of cost of medications. CTM for infectious signs and symptoms. Will see how CBC recovers. -C1D1 of THP on 03/02/25 and overall tolerated. Some erythema and flushing with Taxotere. Additionalpepcide and benadryl given, completed infusion at slower rate. -Reviewed echo 02/25/25 which was normal, next due in 04/2025 -Port placed per IR -Palliative radiation planned over 5fx to T5, L1-3 and Rt Femoral Neck per Dr Kamara next week Esperanza Monsalve APRN Hematology/Oncology documented in this encounter Plan of Treatment Upcoming Encounters Date Type Department Care Team (Late st Contact Info) Description 05/01/2025 12:30 PM EST Appointment [facility] [address] [place], [place] [phone] Maxx Khan MD [address] [place] [address] [place] [address] 05/04/2025 8:15 AM EST Appointment [place] [address] 05/04/2025 8:45 AM EST [facility]ment [facility] [place], [place] [phone] Maxx Khan MD [address] [place] [address] [address] [place] [phone] 05/04/2025 9:00 AM EST Appointment [facility] [place], [place] [id number] 05/28/2025 10:30 AM EST Appointment [facility] [address] [place] [id number] Maxx Khan MD [address] [facility] [place] [id number] 06/26/2025 10:15 AM EST Appointment [facility] ONC [place], [place] [id number] Consuelo Ugarte APRN [address] [facility] [address] [place] [phone] documented as of this encounter Goals Goal Patient Goal Type Associated Problems Recent Progress Patient-Stated? Author [facility] Yenni Funk RN Note: Patient acknowledges understanding of new diagnosis, plan of care, available resources and how to contact Nurse Navigator with any future questions or concerns. documented as of this encounter Visit Diagnoses Diagnosis Invasive ductal carcinoma of breast, female, right (HCC)- Primary Chemotherapy-induced nausea Nausea alone Chemotherapy follow-up examination Chemotherapy induced neutropenia Drug induced neutropenia documented in this encounter Care Teams Army Officer Relationship Specialty Start Date End Date Idania Cobb RN Oncology Nurse Navigator 01/22/25 Maxx Khan MD [address] [place] [address] [address] [place] [phone] Medical Oncologist Internal Medicine-Medical Oncology 02/18/25 Obdulia Mazariegos, ANTHONY Registered Nurse 02/18/25 Bhavesh Poole MD [address] [place] [address] Radiation Oncologist Radiology-Radiation Oncology 02/24/25 Elena Buck, Clerical Staff Financial Counselor 02/27/25 documented as of this encounter
--- OUTSIDE RECORDS SUMMARY | 2025-03-09 13:30 | XMS_ITS | Encounter Summary ---
Author Organization [place] [address] Care Team Providers Care Motorcycle Sales Associate Name Role Phone Idania Cobb RN Unavailable Maxx Khan MD Unavailable [phone] Obdulia Mazariegos RN Unavailable Unavailable Bhavesh Poole MD Unavailable Elena Buck Clerical Staff Unavailable Reason for Visit * Reason Comments Follow-up Invasive ductal carc inoma of right breast, stage 4 Encounter Details Date Type Department Care Team (Latest Contact Info) Description 03/09/2025 1:30 PM EST - 03/09/2025 11:59 PM EST Hospital Encounter [facility] [place] [phone] Esperanza Monsalve APRN [address] [place], [place] [phone] Invasive ductal carcinoma of breast, female, right [...] mouth daily. nalOXone (NARCAN) 4 mg/actuation Nasl [place], Non-AerosolIndic ations:Invasive ductal carcinoma of right breast, stage 4 (HCC) 0.1 mL by Nasal route as needed for Opioid Reversal. [place] the contents of one device (0.1mL) into [...] this encounter Progress Notes * Esperanza Monsalve, VEGETABLE LOADER - 03/09/2025 1:30 PM EST Images from the original note were not included. ONCOLOGY FOLLOW-UP: Primary Oncologist: Maxx Khan MD ONCOLOGY PROBLEM LIST: Oncology History Renal cell cancer, left (HCC) 2017 Initial Diagnosis - Renal cell cancer, left (HCC) - Reports partial nephrectomy 2017 at [place] - States Right Kidney is d/t multiple [...] Surgical Consult with Dr. Jacinto Genetics Negative [employer] Hereditary Cancer Panel (70 genes) CURRENT TREATMENT: [...] IDC grade 2 with first ER 92%, MI 36%, HER2 3+ and 2nd axillary node ER 91%, MI 45%, HER2 3+, and 2nd breast mass ER 97%, MI 93%, HER2 1+. MRI showing level I [...] Info) Description 05/01/2025 12:30 PM EST Appointment [facility] [address] [place], [place] [id number] Maxx Khan MD [address] [place] [address] [place] [id number] 05/04/2025 8:15 AM EST Appointment [place] [address] 05/04/2025 8:45 AM EST [facility]ointment [facility] [place], [place] [id number] Maxx Khan MD [address] [place] [address] [address] [place] [id number] 05/04/2025 9:00 AM EST [facility]ment [facility] [place], [place] [id number] 05/28/2025 10:30 AM EST Appointment [facility] [address] [place] [id number] Maxx Khan MD [address] [facility] [place] [id number] 06/26/2025 10:15 AM EST Appointment [facility] ONC [place], [place] [id number] Conuselo Ugarte APRN [address] [facility] [address] [place] [id number] documented as of this encounter Goals Goal Patient Goal Type Associated Problems Recent Progress Patient-Stated? Author [facility] Yenni Funk RN Note: Patient acknowledges understanding of new diagnosis, plan of care, available resources and how to contact Nurse Navigator with any future questions or concerns. documented as of this encounter Visit Diagnoses Diagnosis Invasive ductal carcinoma of breast, female, right (HCC)- Primary Chemotherapy-induced nausea Nausea alone Chemotherapy follow-up examination Chemotherapy induced neutropenia Drug induced neutropenia documented in this encounter Care Teams Motorcycle Sales Associate Relationship Specialty Start Date End Date Idania Cobb RN Oncology Nurse Navigator 01/22/25 Maxx Khan MD [address] [place] [address] [address] [place] [id number] Medical Oncologist Internal Medicine-Medical Oncology 02/18/25 Obdulia Mazariegos, ANTHONY Registered Nurse 02/18/25 Bhavesh Poole MD [address] [place] [address] Radiation Oncologist Radiology-Radiation Oncology 02/24/25 Elena Buck, Clerical Staff Financial Counselor 02/27/25 documented as of this encounter
--- OUTSIDE RECORDS SUMMARY | 2025-03-11 13:00 | XMS_ITS | Encounter Summary ---
Author Organization [place] [address] Care Team Providers Care District Traffic Chief Name Role Phone Idania Cobb RN Unavailable Maxx Khan MD Unavailable [phone] Obdulia Mazariegos RN Unavailable Unavailable Bhavesh Poole MD Unavailable Elena Buck Clerical Staff Unavailable Encounter Details Date Type Department Care Team (Latest Contact Info) Description 03/11/2025 1:00 PM EST - 03/11/2025 11:59 PM EST Hospital Encounter [facility] [place] [address] Discharge Disposition: Home or Self [...] mouth daily. nalOXone (NARCAN) 4 mg/actuation Nasl [place], Non-AerosolIndic ations:Invasive ductal carcinoma of right breast, stage 4 (HCC) 0.1 mL by Nasal route as needed for Opioid Reversal. [place] the contents of one device (0.1mL) into [...] or Self Care documented in this encounter Miscellaneous Notes * CANCER CARE - ORDERS - Copadrian, Peyton Silvestre, RT - 03/11/2025 1:00 PM EST Images from the original note were not included. 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 Course ID Plan ID Rx Dose (cGy) Fraction Status C1 RtFemurAP/PA 2,000 0 / 5 Unapproved C1 [id number] 2,000 0 / 5 Planning Approved C1 L1-L3_Spine 2,000 0 / 5 Planning Approved C1 T5_Spine 2,000 0 / 5 Planning Approved documented in this encounter Plan of Treatment Upcoming Encounters Date Type Department Care Team (Late st Contact Info) Description 05/01/2025 12:30 PM EST Appointment [facility] [place] [address] Maxx Khan MD [address] [place] [address] [place] [address] 05/04/2025 8:15 AM EST Appointment [place] [address] 05/04/2025 8:45 AM EST [facility]ment [facility] [place] [id number] Maxx Khan MD [address] [place] [address] [place] [address] 05/04/2025 9:00 AM EST Appointment [facility] [place] [address] 05/28/2025 10:30 AM EST Appointment [facility] [place] [address] Maxx Khan MD [address] [place] [address] [address] [place] [id number] 06/26/2025 10:15 AM EST Appointment [place] [address] Consuelo Ugarte, HEMATOLOGY NURSE EDUCATOR [address] [place] [address] [place] [address] documented as of this encounter Goals Goal Patient Goal Type Associated Problems Recent Progress Patient-Stated? Author Breast Health Breast Health Yenni Funk, RN Note: Patient acknowledges understanding of new diagnosis, plan of care, available resources and how to contact Nurse Navigator with any future questions or concerns. documented as of this encounter Visit Diagnoses Not on filedocumented in this encounter Care Teams District Traffic Chief Relationship Specialty Start Date End Date Idania Cobb RN Oncology Nurse Navigator 01/22/25 Maxx Khan MD 1 [facility] [place] [address] Medical Oncologist Internal Medicine-Medical Oncology 02/18/25 Obdulia Mazariegos, ANTHONY Registered Nurse 02/18/25 Bhavesh Poole MD 1 [place] [address] Radiation Oncologist Radiology-Radiation Oncology 02/24/25 Elena Buck, Clerical Staff Financial Counselor 02/27/25 documented as of this encounter
--- OUTSIDE RECORDS SUMMARY | 2025-03-11 13:00 | XMS_ITS | Encounter Summary ---
Author Organization [place] [address] Care Team Providers Care Locker Room Supervisor Name Role Phone Idania Cobb RN Unavailable Maxx Khan MD Unavailable [phone] Obdulia Mazariegos RN Unavailable Unavailable Bhavesh Poole MD Unavailable Elena Buck Clerical Staff Unavailable Encounter Details Date Type Department Care Team (Latest Contact Info) Description 03/11/2025 1:00 PM EST - 03/11/2025 11:59 PM EST Hospital Encounter [place] [address] Discharge Disposition: Home or Self [...] mouth daily. nalOXone (NARCAN) 4 mg/actuation Nasl [place], Non-AerosolIndic ations:Invasive ductal carcinoma of right breast, stage 4 (HCC) 0.1 mL by Nasal route as needed for Opioid Reversal. [place] the contents of one device (0.1mL) into [...] RtFemurAP/PA 2,000 0 / 5 Unapproved C1 [id number] 2,000 0 / 5 Planning Approved C1 L1-L3_Spine 2,000 0 / 5 Planning Approved C1 T5_Spine 2,000 0 / 5 Planning Approved documented in this encounter Plan of Treatment Upcoming Encounters Date Type Department Care Team (Late st Contact Info) Description 05/01/2025 12:30 PM EST Appointment [facility] [place] [address] Maxx Khan MD [address] [place] [address] [place] [address] 05/04/2025 8:15 AM EST Appointment [facility] [place] [address] 05/04/2025 8:45 AM EST Appointment [facility] [place] [id number] Maxx Khan MD [address] [place] [address] [place] [address] 05/04/2025 9:00 AM EST Appointment [facility] [place] [address] 05/28/2025 10:30 AM EST Appointment [facility] [place] [address] Maxx Khan MD [address] [place] [address] [address] [place] [id number] 06/26/2025 10:15 AM EST Appointment [facility] [place] [address] Consuelo Ugarte, CIVIL DESIGNER [address] [place] [address] [place] [address] documented as of this encounter Goals Goal Patient Goal Type Associated Problems Recent Progress Patient-Stated? Author Breast Health Breast Health Yneni Funk, RN Note: Patient acknowledges understanding of new diagnosis, plan of care, available resources and how to contact Nurse Navigator with any future questions or concerns. documented as of this encounter Visit Diagnoses Not on filedocumented in this encounter Care Teams Locker Room Supervisor Relationship Specialty Start Date End Date Idania Cobb RN Oncology Nurse Navigator 01/22/25 Maxx Khan MD 1 [facility] [place] [address] Medical Oncologist Internal Medicine-Medical Oncology 02/18/25 Obdulia Mazariegos, ANTHONY Registered Nurse 02/18/25 Bhavesh Poole MD 1 [place] [address] Radiation Oncologist Radiology-Radiation Oncology 02/24/25 Elena Buck, Clerical Staff Financial Counselor 02/27/25 documented as of this encounter
--- OUTSIDE RECORDS SUMMARY | 2025-03-16 10:43 | XMS_ITS | Encounter Summary ---
Author Organization [place] [address] Care Team Providers Care Mill Turner Name Role Phone Idania Cobb RN Unavailable Maxx Khan MD Unavailable [phone] Obdulia Mazariegos RN Unavailable Unavailable Bhavesh Poole MD Unavailable Elena Buck Clerical Staff Unavailable Reason for Visit * Radiation Therapy (Routine) - Authorization Not Needed Specialty Diagnoses / Procedures Referred By Contac t Referred To Contact Radiation Oncology Diagnoses Secondary malignant neoplasm of bone (HCC) Procedures CHG RADIATION TREATMENT DELIVERY >=1 MEV COMPLEX 3D X 5 Bhavesh Poole MD [address] [place] [address] Phone: tel: fax: [facility] [place] [address] Phone: tel: fax: Referral ID Status Reason Start Date Expiration Date Visits Requested Visits Authorized [id number] Authorization Not Needed 02/25/2026 99 99 Encounter Details Date Type Department Care Team (Latest Contact Info) Description 03/16/2025 10:43 AM EST - 03/16/2025 11:10 AM EST Hospital Encounter [facility] [place] [address] Discharge Disposition: Home or Self Care Social [...] mouth daily. nalOXone (NARCAN) 4 mg/actuation Nasl [place], Non-AerosolIndic ations:Invasive ductal carcinoma of right breast, stage 4 (HCC) 0.1 mL by Nasal route as needed for Opioid Reversal. [place] the contents of one device (0.1mL) into [...] documented in this encounter Progress Notes * Peyton Hyde RT - 03/16/2025 10:56 AM EST Images from the original note were not included. Patient Name: ELVI MAN Date: 03/16/2025 10:56 AM MR #: [id number] MD: Bhavesh Poole Date of : 1960 Verification Simulation Note Physician: Dr. 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 During the verification, the patient was placed in the treatment position on the treatment table. The patient was then shifted so that the treatment target was oriented relative to the linear accelerator isocenter as indicated by the treatment plan. This was accomplished by using the derived shifts from the CT origin to the coordinates of the planned isocenter. The therapists ensured each portal?s combination of gantry, collimator, and table position were deliverable as designedduring treatment planning. Each portal was filmed and compared to Digital Reconstructed Radiographs(DRRs) which were generated from the treatment planning CT scan. The patient received adjustments as needed prior to treatment. The physician approved all images prior to treatment. Therapist Notes: Isocenter was established and marked. Photographs of the patient setup and felton were completed and imported into [employer]. Physician Notes: As ordered, a verification simulation was performed. The images demonstrating isocenter, patient alignment and the beam parameters were reviewed prior to treatment. The Verification Simulation was followed by treatment without incident. documented in this encounter Plan of Treatment Upcoming Encounters Date Type Department Care Team (Late st Contact Info) Description 05/01/2025 12:30 PM EST Appointment [facility] [place] [address] Maxx Khan MD 1 [facility] [place] [address] 05/04/2025 8:15 AM EST Appointment [place] [address] 05/04/2025 8:45 AM EST [facility]ment [facility] [place] [address] Maxx Khan MD [address] [facility] [place] [address] 05/04/2025 9:00 AM EST Appointment [facility] [place] [address] 05/28/2025 10:30 AM EST Appointment [facility] [place] [address] Maxx Khan MD 1 [facility] [place] [address] 06/26/2025 10:15 AM EST Appointment [facility] [place] [address] Consuelo Ugarte APRN [address] [place] [address] [place] [address] documented as of this encounter Goals Goal Patient Goal Type Associated Problems Recent Progress Patient-Stated? Author Breast Health Breast Health Yenni Funk RN Note: Patient acknowledges understanding of new diagnosis, plan of care, available resources and how to contact Nurse Navigator with any future questions or concerns. documented as of this encounter Visit Diagnoses Not on filedocumented in this encounter Care Teams [place] Relationship Specialty Start Date End Date Idania Cobb RN Oncology Nurse Navigator 01/22/25 Maxx Khan MD 1 [facility] [place], [place] [id number] Medical Oncologist Internal Medicine-Medical Oncology 02/18/25 Obdulia Mazariegos, RN Registered Nurse 02/18/25 Bhavesh Poole MD 1 [place] [address] Radiation Oncologist Radiology-Radiation Oncology 02/24/25 Elena Buck, Clerical Staff Financial Counselor 02/27/25 documented as of this encounter
--- OUTSIDE RECORDS SUMMARY | 2025-03-16 10:43 | XMS_ITS | Encounter Summary ---
Author Organization [place] [address] Care Team Providers Care Horologist Name Role Phone Idania Cobb RN Unavailable Maxx Khan MD Unavailable [phone] Obdulia Mazariegos RN Unavailable Unavailable Bhavesh Poole MD Unavailable Elena Buck Clerical Staff Unavailable Reason for Visit * Radiation Therapy (Routine) - Authorization Not Needed Specialty Diagnoses / Procedures Referred By Contac t Referred To Contact Radiation Oncology Diagnoses Secondary malignant neoplasm of bone (HCC) Procedures CHG RADIATION TREATMENT DELIVERY >=1 MEV COMPLEX 3D X 5 Bhavesh Poole MD [address] [place] [address] Phone: tel: fax: [facility] [place] [address] Phone: tel: fax: Referral ID Status Reason Start Date Expiration Date Visits Requested Visits Authorized [id number] Authorization Not Needed 02/25/2026 99 99 Encounter Details Date Type Department Care Team (Latest Contact Info) Description 03/16/2025 10:43 AM EST - 03/16/2025 11:10 AM EST Hospital Encounter [facility] [place] [address] Discharge Disposition: Home or Self Care Social [...] mouth daily. nalOXone (NARCAN) 4 mg/actuation Nasl [place], Non-AerosolIndic ations:Invasive ductal carcinoma of right breast, stage 4 (HCC) 0.1 mL by Nasal route as needed for Opioid Reversal. [place] the contents of one device (0.1mL) into [...] MAN Date: 03/16/2025 10:56 AM MR #: [id number] MD: Bhavesh Poole Date of : 1960 [...] Description 05/01/2025 12:30 PM EST Appointment [facility] [place] [address] Maxx Khan MD 1 [facility] [place] [address] 05/04/2025 8:15 AM EST Appointment [facility] [place] [address] 05/04/2025 8:45 AM EST [facility]ointment [facility] [place] [address] Maxx Khan MD 1 [facility] [place] [address] 05/04/2025 9:00 AM EST Appointment [place] [address] 05/28/2025 10:30 AM EST Appointment [facility] [place] [address] Maxx Khan MD 1 [facility] [place] [address] 06/26/2025 10:15 AM EST Appointment [facility] [place] [address] Consuelo Ugarte APRN [address] [place] [address] [place] [address] documented as of this encounter Goals Goal Patient Goal Type Associated Problems Recent Progress Patient-Stated? Author Breast Health Breast Health Yenni Funk RN Note: Patient acknowledges understanding of new diagnosis, plan of care, available resources and how to contact Nurse Navigator with any future questions or concerns. documented as of this encounter Visit Diagnoses Not on filedocumented in this encounter Care Teams Horologist Relationship Specialty Start Date End Date Idania Cobb RN Oncology Nurse Navigator 01/22/25 Maxx Khan MD 1 [facility] [place], [place] [address]17 Medical Oncologist Internal Medicine-Medical Oncology 02/18/25 Obdulia Mazariegos, RN Registered Nurse 02/18/25 Bhavesh Poole MD 1 [place] [address] Radiation Oncologist Radiology-Radiation Oncology 02/24/25 Elena Buck, Clerical Staff Financial Counselor 02/27/25 documented as of this encounter
--- OUTSIDE RECORDS SUMMARY | 2025-03-16 11:11 | XMS_ITS | Encounter Summary ---
Author Organization [place] [address] Care Team Providers Care Junior Recruiter Name Role Phone Idania Cobb RN Unavailable Maxx Khan MD Unavailable [phone] Obdulia Mazariegos RN Unavailable Unavailable Bhavesh Poole MD Unavailable Elena Buck Clerical Staff Unavailable Reason for Visit * Radiation Therapy (Routine) - Authorization Not Needed Specialty Diagnoses / Procedures Referred By Contac t Referred To Contact Radiation Oncology Diagnoses Secondary malignant neoplasm of bone (HCC) Procedures CHG RADIATION TREATMENT DELIVERY >=1 MEV COMPLEX 3D X 5 Bhavesh Poole MD [address] [place] [address] Phone: tel: fax: [place] [address] Phone: tel: fax: Referral ID Status Reason Start Date Expiration Date Visits Requested Visits Authorized [id number] Authorization Not Needed 02/25/2026 99 99 Encounter Details Date Type Department Care Team (Latest Contact Info) Description 03/16/2025 11:11 AM EST - 03/16/2025 11:59 PM EST Hospital Encounter [facility] [place] [address] Discharge Disposition: Home or Self Care Social [...] mouth daily. nalOXone (NARCAN) 4 mg/actuation Nasl [place], Non-AerosolIndic ations:Invasive ductal carcinoma of right breast, stage 4 (HCC) 0.1 mL by Nasal route as needed for Opioid Reversal. [place] the contents of one device (0.1mL) into [...] of treatment). 28 Tablet 1 02/18/2025 5 levoFLOXacin (LEVAQUIN) 750 mg Oral TabletIndication s:Acute cystitis with hematuria Take 1 Tablet by mouth daily for 7 days. 7 Tablet 03/16/2025 5 documented as of this encounter Discharge Disposition Disposition Code Departure Means Destination Home or Self Care documented in this encounter Plan of Treatment Upcoming Encounters Date Type Department Care Team (Late st Contact Info) Description 05/01/2025 12:30 PM EST Appointment [facility] CT [place] [id number] Maxx Khan MD [address] [place] [address] [place] [address] 05/04/2025 8:15 AM EST Appointment [place] [address] 05/04/2025 8:45 AM EST [facility]ment [facility] [place] [address] Maxx Khan MD [address] [place] [address] [address] [place] [address] 05/04/2025 9:00 AM EST Appointment [facility] [place], [place] [id number] 05/28/2025 10:30 AM EST Appointment [facility] [place] [address] Maxx Khan MD [address] [place] [address] [place] [address] 06/26/2025 10:15 AM EST Appointment [facility] [place] [address] Consuelo Ugarte APRN 1 [facility] [address] [place] [address] documented as of this encounter Goals Goal Patient Goal Type Associated Problems Recent Progress Patient-Stated? Author Breast Health Breast Health Yenni Funk, RN Note: Patient acknowledges understanding of new diagnosis, plan of care, available resources and how to contact Nurse Navigator with any future questions or concerns. documented as of this encounter Visit Diagnoses Not on filedocumented in this encounter Care Teams Junior Recruiter Relationship Specialty Start Date End Date Idania Cobb RN Oncology Nurse Navigator 01/22/25 Maxx Khan MD 1 [place] [address] Medical Oncologist Internal Medicine-Medical Oncology 02/18/25 Obdulia Mazariegos RN Registered Nurse 02/18/25 Bhavesh Poole MD 1 [place] [address] Radiation Oncologist Radiology-Radiation Oncology 02/24/25 Elena Buck, Clerical Staff Financial Counselor 02/27/25 documented as of this encounter
--- OUTSIDE RECORDS SUMMARY | 2025-03-16 11:11 | XMS_ITS | Encounter Summary ---
Author Organization [place] [address] Care Team Providers Care Creative Art Director Name Role Phone Idania Cobb RN Unavailable Maxx Khan MD Unavailable [phone] Obdulia Mazariegos RN Unavailable Unavailable Bhavesh Poole MD Unavailable Elena Buck Clerical Staff Unavailable Reason for Visit * Radiation Therapy (Routine) - Authorization Not Needed Specialty Diagnoses / Procedures Referred By Contac t Referred To Contact Radiation Oncology Diagnoses Secondary malignant neoplasm of bone (HCC) Procedures CHG RADIATION TREATMENT DELIVERY >=1 MEV COMPLEX 3D X 5 Bhavesh Poole MD [address] [place] [address] Phone: tel: fax: [place] [address] Phone: tel: fax: Referral ID Status Reason Start Date Expiration Date Visits Requested Visits Authorized [id number] Authorization Not Needed 02/25/2026 99 99 Encounter Details Date Type Department Care Team (Latest Contact Info) Description 03/16/2025 11:11 AM EST - 03/16/2025 11:59 PM EST Hospital Encounter [place] [address] Discharge Disposition: Home or Self Care Social [...] mouth daily. nalOXone (NARCAN) 4 mg/actuation Nasl [place], Non-AerosolIndic ations:Invasive ductal carcinoma of right breast, stage 4 (HCC) 0.1 mL by Nasal route as needed for Opioid Reversal. [place] the contents of one device (0.1mL) into [...] Info) Description 05/01/2025 12:30 PM EST Appointment [facility] CT [place] [id number] Maxx Khan MD [address] [place] [address] [place] [address] 05/04/2025 8:15 AM EST Appointment [place] [address] 05/04/2025 8:45 AM EST [facility]ment [facility] [place] [address] Maxx Khan MD [address] [place] [address] [address] [place] [address] 05/04/2025 9:00 AM EST Appointment [facility] [place], [place] [id number] 05/28/2025 10:30 AM EST Appointment [facility] [place] [address] Maxx Khan MD [address] [place] [address] [place] [address] 06/26/2025 10:15 AM EST Appointment [place] [address] Consuelo Ugarte APRN [address] [facility] [address] [place] [address] documented as of this encounter Goals Goal Patient Goal Type Associated Problems Recent Progress Patient-Stated? Author Breast Health Breast Health Yenni Funk, RN Note: Patient acknowledges understanding of new diagnosis, plan of care, available resources and how to contact Nurse Navigator with any future questions or concerns. documented as of this encounter Visit Diagnoses Not on filedocumented in this encounter Care Teams Creative Art Director Relationship Specialty Start Date End Date Idania Cobb RN Oncology Nurse Navigator 01/22/25 Maxx Khan MD 1 [place] [address] Medical Oncologist Internal Medicine-Medical Oncology 02/18/25 Obdulia Mazariegos RN Registered Nurse 02/18/25 Bhavesh Poole MD 1 [place] [address] Radiation Oncologist Radiology-Radiation Oncology 02/24/25 Elena Buck, Clerical Staff Financial Counselor 02/27/25 documented as of this encounter
--- OUTSIDE RECORDS SUMMARY | 2025-03-17 11:42 | XMS_ITS | Encounter Summary ---
Author Organization [place] [address] Care Team Providers Care Fire Hydrant Operator Name Role Phone Idania Cobb RN Unavailable Maxx Khan MD Unavailable [phone] Obdulia Mazariegos RN Unavailable Unavailable Bhavesh Poole MD Unavailable Elena Buck Clerical Staff Unavailable Encounter Details Date Type Department Care Team (Latest Contact Info) Description 03/17/2025 11:42 AM EST - 03/17/2025 11:58 AM EST Hospital Encounter [place] [address] Invasive ductal carcinoma of breast, [...] mouth daily. nalOXone (NARCAN) 4 mg/actuation Nasl [place], Non-AerosolIndic ations:Invasive ductal carcinoma of right breast, stage 4 (HCC) 0.1 mL by Nasal route as needed for Opioid Reversal. [place] the contents of one device (0.1mL) into [...] Info) Description 05/01/2025 12:30 PM EST Appointment [facility] [place] [address] Maxx Khan MD [address] [facility] [place] [address] 05/04/2025 8:15 AM EST Appointment [facility] [place], [place] [id number] 05/04/2025 8:45 AM EST [facility]ment [facility] [place] [address] Maxx Khan MD [address] [place] [address] 05/04/2025 9:00 AM EST Appointment [facility] [place] [address] 05/28/2025 10:30 AM EST Appointment [facility] [place] [address] Maxx Khan MD [address] [facility] [facility] [place] [address] 06/26/2025 10:15 AM EST Appointment [facility] [address] Consuelo Ugarte APRN [address] [place] [address] [place] [address] documented as of this encounter Goals Goal [...] Associated Diagnosis Comments CBC WITH DIFF STAT 03/17/2025 11:52 AM EST Invasive ductal carcinoma of breast, female, right (HCC) COMPREHENSIVE METABOLIC PANEL STAT 03/17/2025 11:52 AM EST Invasive ductal carcinoma of breast, female, right (HCC) documented in this encounter Results * (ABNORMAL) COMPREHENSIVE METABOLIC PANEL (03/17/2025 11:52 AM EST) Sodium 142 136 - 145 mmol/L 03/17/2025 12:15 PM EST [facility] Potassium 3.3(L) 3.5 - 5.0 mmol/L 03/17/2025 12:15 PM EST [facility] Chloride 107 98 - 107 mmol/L 03/17/2025 12:15 PM [facility] Total CO2 22 22 - 29 mmol/L 03/17/2025 12:15 PM [facility] Anion Gap 13 7 - 16 mmol/L 03/17/2025 12:15 PM [facility] Calcium 8.8 8.8 - 10.4 mg/dL 03/17/2025 12:15 PM [facility] Glucose Lvl 128(H) 70 - 99 mg/dL 03/17/2025 12:15 PM [facility] BUN 12 8 - 23 mg/dL 03/17/2025 12:15 PM [facility] Creatinine 0.66 0.51 - 1.30 mg/dL 03/17/2025 12:15 PM [facility] Albumin 3.4 3.2 - 4.6 gm/dL 03/17/2025 12:15 PM [facility] Total Protein 6.4 6.4 - 8.3 gm/dL 03/17/2025 12:15 PM [facility] Bili Total 0.3 0.2 - 1.3 mg/dL 03/17/2025 12:15 PM [facility] ALT 33 <=41 U/L 03/17/2025 12:15 PM EST [facility] AST 18 <=40 U/L 03/17/2025 12:15 PM [facility] Alk Phos 126(H) 36 - 123 U/L 03/17/2025 12:15 PM [facility] eGFR (CKD-EPIcr 2020) 97 >=60 mL/min/1.7 3 m2 03/17/2025 12:15 PM EST [facility] Comment:Estimated GFR was ca lculated using the CKD-EPIcr (2020) equation refit without race. The equation is recommended by the National Kidney Foundation - [place] [employer] of Nephrology Task Force. Blood VENOUS STRUCTURE / Unknown Port / Unknown 03/17/2025 11:52 AM EST 03/17/2025 11:57 AM EST us Maxx Khan MD CHEMISTRY ORDERABLES Final Res ult [facility] 1 [place] [address] * (ABNORMAL) CBC WITH DIFF (03/17/2025 11:52 AM EST) WBC 9.8 3.7 - 10.3 x10(3)/mc L 03/17/2025 12:33 PM EST [facility] RBC 3.96 3.90 - 5.20 x10(6)/mc L 03/17/2025 12:33 PM EST [facility] Hgb 11.6 11.2 - 15.7 g/dL 03/17/2025 12:33 PM EST [facility] Hct 34.4 34.0 - 45.0 % 03/17/2025 12:33 PM EST [facility] MCV 86.9 80.0 - 100.0 fL 03/17/2025 12:33 PM EST [facility] MCH 29.3 26.0 - 34.0 pg 03/17/2025 12:33 PM EST [facility] MCHC 33.7 30.7 - 35.5 g/dL 03/17/2025 12:33 PM EST [facility] RDW 13.1 <=14.9 % 03/17/2025 12:33 PM EST [facility] Platelet 269 155 - 369 x10(3)/mc L 03/17/2025 12:33 PM EST [facility] MPV 8.4(L) 8.8 - 12.5 fL 03/17/2025 12:33 PM EST [facility] Segs 72 % 03/17/2025 12:33 PM EST [facility] Lymphs 11 % 03/17/2025 12:33 PM EST [facility] Monos 6 % 03/17/2025 12:33 PM EST [facility] Eos 0 % 03/17/2025 12:33 PM EST [facility] Baso 4 % 03/17/2025 12:33 PM EST [facility] Metamyelocyte 2 % 03/17/2025 12:33 PM EST [facility] Myelo 4 % 03/17/2025 12:33 PM EST [facility] Plasmacyte 1 % 03/17/2025 12:33 PM EST [facility] Neut # 7.1(H) 1.6 - 6.1 x10(3)/mc L 03/17/2025 12:33 PM EST [facility] Lymph # 1.1(L) 1.2 - 3.9 x10(3)/mc L 03/17/2025 12:33 PM EST [facility] Irwin # 0.6 0.3 - 0.9 x10(3)/mc L 03/17/2025 12:33 PM EST [facility] Eos # Manual 0.0 0.0 - 0.5 x10(3)/mc L 03/17/2025 12:33 PM EST [facility] Baso # Manual 0.4(H) 0.0 - 0.1 x10(3)/mc L 03/17/2025 12:33 PM EST [facility] Metamyelo # 0.2 x10(3)/mc L 03/17/2025 12:33 PM EST [facility] Myelo # 0.4 x10(3)/mc L 03/17/2025 12:33 PM EST [facility] Plasma # 0.1 x10(3)/mc L 03/17/2025 12:33 PM EST [facility] Juan Luis Cell Occasional 03/17/2025 12:33 PM EST [facility] Blood VENOUS STRUCTURE / Unknown Port / Unknown 03/17/2025 11:52 AM EST 03/17/2025 11:57 AM EST us Maxx Khan MD HEMATOLOGY ORDERABLES Final Re sult [facility] [employer] [employer] [address] [facility] [address] [place] [address] [facility] 1 [place] [address] documented in this encounter Visit [...] Units 500 Units, Intravenous, PRN, Starting on Sun03/17/25 at 1155, Until Sun03/18/25 at 0418, Line Care, For Venous Access Device care and maintenance., Dx: 1. Invasive ductal carcinoma of breast, female, left (HCC)Indications:Invasive ductal carcinoma of breast, female, left (HCC) Given 03/17/2025 11:55 AM EST 500 Units sodium chloride 0.9 % sterile syringe Intravenous, PRN, Starting on Sun03/17/25 at 1155, Until Sun03/18/25 at 0418, Line Care, For initial access of Venous Access Device., Dx: 1. Invasive ductal carcinoma of breast, female, left (HCC)Indications:Invasive ductal carcinoma of breast, female, left (HCC) Given 03/17/2025 11:55 AM EST 10 mL sodium chloride 0.9% syringe Intravenous, PRN, Starting on Sun03/17/25 at 1155, Until Sun03/18/25 at 0418, Line Care, For Venous Access Device care and maintenance., Dx: 1. Invasive ductal carcinoma of breast, female, left (HCC)Indications:Invasive ductal carcinoma of breast, female, left (HCC) Given 03/17/2025 11:55 AM EST 10 mL documented in this encounter Care Teams Fire Hydrant Operator Relationship Specialty Start Date End Date Idania Cobb RN Oncology Nurse Navigator 01/22/25 Maxx Khan MD [address] [place] [address] Medical Oncologist Internal Medicine-Medical Oncology 02/18/25 Obdulia Mazariegos, RN Registered Nurse 02/18/25 Bhavesh Poole MD 1 [place] [address] Radiation Oncologist Radiology-Radiation Oncology 02/24/25 Elena Buck, Clerical Staff Financial Counselor 02/27/25 documented as of this encounter
--- OUTSIDE RECORDS SUMMARY | 2025-03-17 11:42 | XMS_ITS | Encounter Summary ---
Author Organization [place] [address] Care Team Providers Care Coil Placer Name Role Phone Idania Cobb RN Unavailable Maxx Khan MD Unavailable [phone] Obdulia Mazariegos RN Unavailable Unavailable Bhavesh Poole MD Unavailable Elena Buck Clerical Staff Unavailable Encounter Details Date Type Department Care Team (Latest Contact Info) Description 03/17/2025 11:42 AM EST - 03/17/2025 11:58 AM EST Hospital Encounter [place] [address] Invasive ductal carcinoma of breast, [...] mouth daily. nalOXone (NARCAN) 4 mg/actuation Nasl [place], Non-AerosolIndic ations:Invasive ductal carcinoma of right breast, stage 4 (HCC) 0.1 mL by Nasal route as needed for Opioid Reversal. [place] the contents of one device (0.1mL) into [...] Info) Description 05/01/2025 12:30 PM EST Appointment [place] [address] Maxx Khan MD [address] [facility] [place] [address] 05/04/2025 8:15 AM EST Appointment [facility] [place], [place] [address] 05/04/2025 8:45 AM EST [facility]ment [facility] [place] [address] Maxx Khan MD [address] [facility] [place] [id number] 05/04/2025 9:00 AM EST Appointment [facility] [place] [address] 05/28/2025 10:30 AM EST Appointment [facility] [place] [address] Maxx Khan MD [address] [facility] [place] [address] 06/26/2025 10:15 AM EST Appointment [facility] [place] [address] Consuelo Ugarte APRN [address] [place] [address] [place] [address] documented as of this encounter Goals Goal [...] - 145 mmol/L 03/17/2025 12:15 PM EST [facility] Potassium 3.3(L) 3.5 - 5.0 mmol/L 03/17/2025 12:15 PM EST [facility] Chloride 107 98 - 107 mmol/L 03/17/2025 12:15 PM [facility] Total CO2 22 22 - 29 mmol/L 03/17/2025 12:15 PM [facility] Anion Gap 13 7 - 16 mmol/L 03/17/2025 12:15 PM [facility] Calcium 8.8 8.8 - 10.4 mg/dL 03/17/2025 12:15 PM [facility] Glucose Lvl 128(H) 70 - 99 mg/dL 03/17/2025 12:15 PM [facility] BUN 12 8 - 23 mg/dL 03/17/2025 12:15 PM [facility] Creatinine 0.66 0.51 - 1.30 mg/dL 03/17/2025 12:15 PM [facility] Albumin 3.4 3.2 - 4.6 gm/dL 03/17/2025 12:15 PM [facility] Total Protein 6.4 6.4 - 8.3 gm/dL 03/17/2025 12:15 PM [facility] Bili Total 0.3 0.2 - 1.3 mg/dL 03/17/2025 12:15 PM [facility] ALT 33 <=41 U/L 03/17/2025 12:15 PM EST [facility] AST 18 <=40 U/L 03/17/2025 12:15 PM [facility] Alk Phos 126(H) 36 - 123 U/L 03/17/2025 12:15 PM [facility] eGFR (CKD-EPIcr 2020) 97 >=60 mL/min/1.7 3 m2 03/17/2025 12:15 PM EST [facility] Comment:Estimated GFR was ca lculated using the CKD-EPIcr (2020) equation refit without race. The equation is recommended by the National Kidney Foundation - [place] Society of Nephrology Task Force. Blood VENOUS STRUCTURE / Unknown Port / Unknown 03/17/2025 11:52 AM EST 03/17/2025 11:57 AM EST us Maxx Khan MD CHEMISTRY ORDERABLES Final Res ult [facility] 1 [place] [address] * (ABNORMAL) CBC WITH DIFF (03/17/2025 11:52 AM EST) WBC 9.8 3.7 - 10.3 x10(3)/mc L 03/17/2025 12:33 PM EST [facility] RBC 3.96 3.90 - 5.20 x10(6)/mc L 03/17/2025 12:33 PM EST [facility] Hgb 11.6 11.2 - 15.7 g/dL 03/17/2025 12:33 PM EST [facility] Hct 34.4 34.0 - 45.0 % 03/17/2025 12:33 PM EST [facility] MCV 86.9 80.0 - 100.0 fL 03/17/2025 12:33 PM EST [facility] MCH 29.3 26.0 - 34.0 pg 03/17/2025 12:33 PM EST [facility] MCHC 33.7 30.7 - 35.5 g/dL 03/17/2025 12:33 PM EST [facility] RDW 13.1 <=14.9 % 03/17/2025 12:33 PM EST [facility] Platelet 269 155 - 369 x10(3)/mc L 03/17/2025 12:33 PM EST [facility] MPV 8.4(L) 8.8 - 12.5 fL 03/17/2025 12:33 PM EST [facility] Segs 72 % 03/17/2025 12:33 PM [...] 12:33 PM EST [facility] [place] # 0.6 0.3 - 0.9 x10(3)/mc L [...] MD HEMATOLOGY ORDERABLES Final Re sult [facility] [employer] [address] [facility] , [place] [address] [facility] 1 [place] [address] documented in this encounter Visit [...] mL documented in this encounter Care Teams Coil Placer Relationship Specialty Start Date End Date Idania Cobb RN Oncology Nurse Navigator 01/22/25 Maxx Khan MD [address] [facility] [place] [address] Medical Oncologist Internal Medicine-Medical Oncology 02/18/25 Obdulia Mazariegos, RN Registered Nurse 02/18/25 Bhavesh Poole MD 1 [place] [address] Radiation Oncologist Radiology-Radiation Oncology 02/24/25 Elena Buck, Clerical Staff Financial Counselor 02/27/25 documented as of this encounter
--- OUTSIDE RECORDS SUMMARY | 2025-03-17 11:59 | XMS_ITS | Encounter Summary ---
Author Organization [place] [address] Care Team Providers Care Corporate Claims Examiner Name Role Phone Idania Cobb RN Unavailable Maxx Khan MD Unavailable [phone] Obdulia Mazariegos RN Unavailable Unavailable Bhavesh Poole MD Unavailable Elena Buck Clerical Staff Unavailable Reason for Visit * Radiation Therapy (Routine) - Authorization Not Needed Specialty Diagnoses / Procedures Referred By Contac t Referred To Contact Radiation Oncology Diagnoses Secondary malignant neoplasm of bone (HCC) Procedures CHG RADIATION TREATMENT DELIVERY >=1 MEV COMPLEX 3D X 5 Bhavesh Poole MD [address] [place] [address] Phone: tel: fax: [facility] [place] [address] Phone: tel: fax: Referral ID Status Reason Start Date Expiration Date Visits Requested Visits Authorized [id number] Authorization Not Needed 02/25/2026 99 99 Encounter Details Date Type Department Care Team (Latest Contact Info) Description 03/17/2025 11:59 AM EST - 03/17/2025 11:59 PM EST Hospital Encounter [facility] [place] [address] Discharge Disposition: Home or Self Care Social [...] mouth daily. nalOXone (NARCAN) 4 mg/actuation Nasl [place], Non-AerosolIndic ations:Invasive ductal carcinoma of right breast, stage 4 (HCC) 0.1 mL by Nasal route as needed for Opioid Reversal. [place] the contents of one device (0.1mL) [...] Info) Description 05/01/2025 12:30 PM EST Appointment [facility] CT [place] [id number] Maxx Khan MD [address] [place] [address] [place] [address] 05/04/2025 8:15 AM EST Appointment [place] [address] 05/04/2025 8:45 AM EST [facility]ment [facility] [place] [address] Maxx Khan MD [address] [place] [address] [address] [place] [place] [address] 05/04/2025 9:00 AM EST Appointment [facility] [place], [place] [id number] 05/28/2025 10:30 AM EST Appointment [facility] [place] [address] Maxx Khan MD [address] [place] [address] [place] [address] 06/26/2025 10:15 AM EST Appointment [facility] [place] [address] Consuelo Ugarte APRN [address] [facility] [address] [place] [address] documented as of this encounter Goals Goal Patient Goal Type Associated Problems Recent Progress Patient-Stated? Author Breast Health Breast Health Yenni Funk, RN Note: Patient acknowledges understanding of new diagnosis, plan of care, available resources and how to contact Nurse Navigator with any future questions or concerns. documented as of this encounter Visit Diagnoses Not on filedocumented in this encounter Care Teams Corporate Claims Examiner Relationship Specialty Start Date End Date Idania Cobb RN Oncology Nurse Navigator 01/22/25 Maxx Khan MD 1 [place] [address] Medical Oncologist Internal Medicine-Medical Oncology 02/18/25 Obdulia Mazariegos RN Registered Nurse 02/18/25 Bhavesh Poole MD 1 [place] [address] Radiation Oncologist Radiology-Radiation Oncology 02/24/25 Elena Buck, Clerical Staff Financial Counselor 02/27/25 documented as of this encounter
--- OUTSIDE RECORDS SUMMARY | 2025-03-17 11:59 | XMS_ITS | Encounter Summary ---
Author Organization [place] [address] Care Team Providers Care Cutting Tool Sharpener Name Role Phone Idania Cobb RN Unavailable Maxx Khan MD Unavailable [phone] Obdulia Mazariegos RN Unavailable Unavailable Bhavesh Poole MD Unavailable Elena Buck Clerical Staff Unavailable Reason for Visit * Radiation Therapy (Routine) - Authorization Not Needed Specialty Diagnoses / Procedures Referred By Contac t Referred To Contact Radiation Oncology Diagnoses Secondary malignant neoplasm of bone (HCC) Procedures CHG RADIATION TREATMENT DELIVERY >=1 MEV COMPLEX 3D X 5 Bhavesh Poole MD [address] [place] [address] Phone: tel: fax: [facility] [place] [address] Phone: tel: fax: Referral ID Status Reason Start Date Expiration Date Visits Requested Visits Authorized [id number] Authorization Not Needed 02/25/2026 99 99 Encounter Details Date Type Department Care Team (Latest Contact Info) Description 03/17/2025 11:59 AM EST - 03/17/2025 11:59 PM EST Hospital Encounter [facility] [address] Discharge Disposition: Home or Self Care Social [...] mouth daily. nalOXone (NARCAN) 4 mg/actuation Nasl [place], Non-AerosolIndic ations:Invasive ductal carcinoma of right breast, stage 4 (HCC) 0.1 mL by Nasal route as needed for Opioid Reversal. [place] the contents of one device (0.1mL) into [...] Appointment [facility] CT [place] [id number] Maxx Khan MD [address] [place] [address] [place] [address] 05/04/2025 8:15 AM EST Appointment [place] [address] 05/04/2025 8:45 AM EST [facility]ment [facility] [place] [address] Maxx Khan MD [address] [place] [address] [address] [place] [address] 05/04/2025 9:00 AM EST Appointment [facility] [place], [place] [id number] 05/28/2025 10:30 AM EST Appointment [facility] [place] [address] Maxx Khan MD [address] [place] [address] [place] [id number] 06/26/2025 10:15 AM EST Appointment [facility] [address] Consuelo Ugarte APRN [address] [facility] [address] [place] [address] documented as of this encounter Goals Goal Patient Goal Type Associated Problems Recent Progress Patient-Stated? Author Breast Health Breast Health Yenni Funk, RN Note: Patient acknowledges understanding of new diagnosis, plan of care, available resources and how to contact Nurse Navigator with any future questions or concerns. documented as of this encounter Visit Diagnoses Not on filedocumented in this encounter Care Teams Cutting Tool Sharpener Relationship Specialty Start Date End Date Idania Cobb RN Oncology Nurse Navigator 01/22/25 Maxx Khan MD 1 [place] [address] Medical Oncologist Internal Medicine-Medical Oncology 02/18/25 Obdulia Mazariegos RN Registered Nurse 02/18/25 Bhavesh Poole MD 1 [place] [address] Radiation Oncologist Radiology-Radiation Oncology 02/24/25 Elena Buck, Clerical Staff Financial Counselor 02/27/25 documented as of this encounter
--- OUTSIDE RECORDS SUMMARY | 2025-03-18 13:26 | XMS_ITS | Encounter Summary ---
Author Organization [place] [address] Care Team Providers Care Coat Hanger Shaper Machine Operator Name Role Phone Idania Cobb RN Unavailable Maxx Khan MD Unavailable [phone] Obdulia Mazariegos RN Unavailable Unavailable Bhavesh Poole MD Unavailable Elena Buck Clerical Staff Unavailable Reason for Visit * Radiation Therapy (Routine) - Authorization Not Needed Specialty Diagnoses / Procedures Referred By Contac t Referred To Contact Radiation Oncology Diagnoses Secondary malignant neoplasm of bone (HCC) Procedures CHG RADIATION TREATMENT DELIVERY >=1 MEV COMPLEX 3D X 5 Bhavesh Poole MD [address] [place] [address] Phone: tel: fax: [place] [address] Phone: tel: fax: Referral ID Status Reason Start Date Expiration Date Visits Requested Visits Authorized [id number] Authorization Not Needed 02/25/2026 99 99 Encounter Details Date Type Department Care Team (Latest Contact Info) Description 03/18/2025 1:26 PM EST - 03/18/2025 11:59 PM EST Hospital Encounter [place] [address] Discharge Disposition: Home or Self Care Social [...] mouth daily. nalOXone (NARCAN) 4 mg/actuation Nasl [place], Non-AerosolIndic ations:Invasive ductal carcinoma of right breast, stage 4 (HCC) 0.1 mL by Nasal route as needed for Opioid Reversal. [place] the contents of one device (0.1mL) into [...] Info) Description 05/01/2025 12:30 PM EST Appointment [facility] [place] [phone] Maxx Khan MD [address] [place] [address] [place] [address] 05/04/2025 8:15 AM EST Appointment [place] [address] 05/04/2025 8:45 AM EST [facility]ment [facility] [place] [address] Maxx Khan MD [address] [place] [address] [address] [place] [place] [address] 05/04/2025 9:00 AM EST Appointment [facility] [place], [place] [id number] 05/28/2025 10:30 AM EST Appointment [facility] [place] [address] Maxx Khan MD [address] [place] [address] [place] [address] 06/26/2025 10:15 AM EST Appointment [place] [address] Consuelo Ugarte APRN [address] [facility] [address] [place] [place] [address] documented as of this encounter Goals Goal Patient Goal Type Associated Problems Recent Progress Patient-Stated? Author Breast Health Breast Health Yenni Funk, RN Note: Patient acknowledges understanding of new diagnosis, plan of care, available resources and how to contact Nurse Navigator with any future questions or concerns. documented as of this encounter Visit Diagnoses Not on filedocumented in this encounter Care Teams Coat Hanger Shaper Machine Operator Relationship Specialty Start Date End Date Idania Cobb RN Oncology Nurse Navigator 01/22/25 Maxx Khan MD 1 [place] [address] Medical Oncologist Internal Medicine-Medical Oncology 02/18/25 Obdulia Mazariegos RN Registered Nurse 02/18/25 Bhavesh Poole MD 1 [place] [address] Radiation Oncologist Radiology-Radiation Oncology 02/24/25 Elena Buck, Clerical Staff Financial Counselor 02/27/25 documented as of this encounter
--- OUTSIDE RECORDS SUMMARY | 2025-03-18 13:26 | XMS_ITS | Encounter Summary ---
Author Organization [place] [address] Care Team Providers Care Quality Compliance Manager Name Role Phone Idania Cobb RN Unavailable Maxx Khan MD Unavailable [phone] Obdulia Mazariegos RN Unavailable Unavailable Bhavesh Poole MD Unavailable Elena Buck Clerical Staff Unavailable Reason for Visit * Radiation Therapy (Routine) - Authorization Not Needed Specialty Diagnoses / Procedures Referred By Contac t Referred To Contact Radiation Oncology Diagnoses Secondary malignant neoplasm of bone (HCC) Procedures CHG RADIATION TREATMENT DELIVERY >=1 MEV COMPLEX 3D X 5 Bhavesh Poole MD [address] [place] [address] Phone: tel: fax: [facility] [place] [address] Phone: tel: fax: Referral ID Status Reason Start Date Expiration Date Visits Requested Visits Authorized [id number] Authorization Not Needed 02/25/2026 99 99 Encounter Details Date Type Department Care Team (Latest Contact Info) Description 03/18/2025 1:26 PM EST - 03/18/2025 11:59 PM EST Hospital Encounter [facility] [place] [address] Discharge Disposition: Home or Self Care Social [...] mouth daily. nalOXone (NARCAN) 4 mg/actuation Nasl [place], Non-AerosolIndic ations:Invasive ductal carcinoma of right breast, stage 4 (HCC) 0.1 mL by Nasal route as needed for Opioid Reversal. [place] the contents of one device (0.1mL) into [...] Info) Description 05/01/2025 12:30 PM EST Appointment [facility] [place] [id number] Maxx Khan MD [address] [place] [address] [place] [address] 05/04/2025 8:15 AM EST Appointment [place] [address] 05/04/2025 8:45 AM EST [facility]ment [facility] [place] [address] Maxx Khan MD [address] [place] [address] [address] [place] [place] [address] 05/04/2025 9:00 AM EST Appointment [facility] [place], [place] [id number] 05/28/2025 10:30 AM EST Appointment [facility] [place] [address] Maxx Khan MD [address] [place] [address] [place] [address] 06/26/2025 10:15 AM EST Appointment [facility] [place] [address] Consuelo Ugarte APRN [address] [facility] [address] [place] [address] documented as of this encounter Goals Goal Patient Goal Type Associated Problems Recent Progress Patient-Stated? Author Breast Health Breast Health Yenni Funk, RN Note: Patient acknowledges understanding of new diagnosis, plan of care, available resources and how to contact Nurse Navigator with any future questions or concerns. documented as of this encounter Visit Diagnoses Not on filedocumented in this encounter Care Teams Quality Compliance Manager Relationship Specialty Start Date End Date Idania Cobb RN Oncology Nurse Navigator 01/22/25 Maxx Khan MD 1 [place] [address] Medical Oncologist Internal Medicine-Medical Oncology 02/18/25 Obdulia Mazariegos RN Registered Nurse 02/18/25 Bhavesh Poole MD 1 [place] [address] Radiation Oncologist Radiology-Radiation Oncology 02/24/25 Elena Buck, Clerical Staff Financial Counselor 02/27/25 documented as of this encounter
--- OUTSIDE RECORDS SUMMARY | 2025-03-19 13:43 | XMS_ITS | Encounter Summary ---
Author Organization [place] [address] Care Team Providers Care Inspector General Name Role Phone Idania Cobb RN Unavailable Maxx Khan MD Unavailable [phone] Obdulia Mazariegos RN Unavailable Unavailable Bhavesh Poole MD Unavailable Elena Buck Clerical Staff Unavailable Reason for Visit * Radiation Therapy (Routine) - Authorization Not Needed Specialty Diagnoses / Procedures Referred By Contac t Referred To Contact Radiation Oncology Diagnoses Secondary malignant neoplasm of bone (HCC) Procedures CHG RADIATION TREATMENT DELIVERY >=1 MEV COMPLEX 3D X 5 Bhavesh Poole MD [address] [place] [address] Phone: tel: fax: [place] [address] Phone: tel: fax: Referral ID Status Reason Start Date Expiration Date Visits Requested Visits Authorized [id number] Authorization Not Needed 02/25/2026 99 99 Encounter Details Date Type Department Care Team (Latest Contact Info) Description 03/19/2025 1:43 PM EST - 03/19/2025 11:59 PM EST Hospital Encounter [place] [address] Discharge Disposition: Home or Self Care Social [...] mouth daily. nalOXone (NARCAN) 4 mg/actuation Nasl [place], Non-AerosolIndic ations:Invasive ductal carcinoma of right breast, stage 4 (HCC) 0.1 mL by Nasal route as needed for Opioid Reversal. [place] the contents of one device (0.1mL) into [...] 05/01/2025 12:30 PM EST Appointment [facility] [place] [id number] Maxx Khan MD [address] [place] [address] [place] [address] 05/04/2025 8:15 AM EST Appointment [place] [address] 05/04/2025 8:45 AM EST [facility]ment [facility] [place] [address] Maxx Khan MD [address] [place] [address] [address] [place] [place] [address] 05/04/2025 9:00 AM EST Appointment [facility] [place], [place] [id number] 05/28/2025 10:30 AM EST Appointment [facility] [place] [address] Maxx Khan MD [address] [place] [address] [place] [address] 06/26/2025 10:15 AM EST Appointment [place] [address] Consuelo Ugarte APRN [address] [facility] [address] [place] [place] [address] documented as of this encounter Goals Goal Patient Goal Type Associated Problems Recent Progress Patient-Stated? Author Breast Health Breast Health Yenni Funk, RN Note: Patient acknowledges understanding of new diagnosis, plan of care, available resources and how to contact Nurse Navigator with any future questions or concerns. documented as of this encounter Visit Diagnoses Not on filedocumented in this encounter Care Teams Inspector General Relationship Specialty Start Date End Date Idania Cobb RN Oncology Nurse Navigator 01/22/25 Maxx Khan MD 1 [place] [address] Medical Oncologist Internal Medicine-Medical Oncology 02/18/25 Obdulia Mazariegos RN Registered Nurse 02/18/25 Bhavesh Poole MD 1 [place] [address] Radiation Oncologist Radiology-Radiation Oncology 02/24/25 Elena Buck, Clerical Staff Financial Counselor 02/27/25 documented as of this encounter
--- OUTSIDE RECORDS SUMMARY | 2025-03-19 13:43 | XMS_ITS | Encounter Summary ---
Author Organization [place] [address] Care Team Providers Care Behaviorist Name Role Phone Idania Cobb RN Unavailable Maxx Khan MD Unavailable [phone] Obdulia Mazariegos RN Unavailable Unavailable Bhavesh Poole MD Unavailable Elena Buck Clerical Staff Unavailable Reason for Visit * Radiation Therapy (Routine) - Authorization Not Needed Specialty Diagnoses / Procedures Referred By Contac t Referred To Contact Radiation Oncology Diagnoses Secondary malignant neoplasm of bone (HCC) Procedures CHG RADIATION TREATMENT DELIVERY >=1 MEV COMPLEX 3D X 5 Bhavesh Poole MD [address] [place] [address] Phone: tel: fax: [facility] [place] [address] Phone: tel: fax: Referral ID Status Reason Start Date Expiration Date Visits Requested Visits Authorized [id number] Authorization Not Needed 02/25/2026 99 99 Encounter Details Date Type Department Care Team (Latest Contact Info) Description 03/19/2025 1:43 PM EST - 03/19/2025 11:59 PM EST Hospital Encounter [facility] [place] [address] Discharge Disposition: Home or Self Care Social [...] mouth daily. nalOXone (NARCAN) 4 mg/actuation Nasl [place], Non-AerosolIndic ations:Invasive ductal carcinoma of right breast, stage 4 (HCC) 0.1 mL by Nasal route as needed for Opioid Reversal. [place] the contents of one device (0.1mL) into [...] Info) Description 05/01/2025 12:30 PM EST Appointment [facility] CT [place] [id number] Maxx Khan MD [address] [place] [address] [place] [address] 05/04/2025 8:15 AM EST Appointment [place] [address] 05/04/2025 8:45 AM EST [facility]ment [facility] [place] [address] Maxx Khan MD [address] [place] [address] [address] [place] [place] [address] 05/04/2025 9:00 AM EST Appointment [facility] [place], [place] [id number] 05/28/2025 10:30 AM EST Appointment [facility] [place] [address] Maxx Khan MD [address] [place] [address] [place] [address] 06/26/2025 10:15 AM EST Appointment [facility] [place] [address] Consuelo Ugarte APRN [address] [facility] [address] [place] [place] [address] documented as of this encounter Goals Goal Patient Goal Type Associated Problems Recent Progress Patient-Stated? Author Breast Health Breast Health Yenni Funk, RN Note: Patient acknowledges understanding of new diagnosis, plan of care, available resources and how to contact Nurse Navigator with any future questions or concerns. documented as of this encounter Visit Diagnoses Not on filedocumented in this encounter Care Teams Behaviorist Relationship Specialty Start Date End Date Idania Cobb RN Oncology Nurse Navigator 01/22/25 Maxx Khan MD 1 [place] [address] Medical Oncologist Internal Medicine-Medical Oncology 02/18/25 Obdulia Mazariegos RN Registered Nurse 02/18/25 Bhavesh Poole MD 1 [place] [address] Radiation Oncologist Radiology-Radiation Oncology 02/24/25 Elena Buck, Clerical Staff Financial Counselor 02/27/25 documented as of this encounter
--- OUTSIDE RECORDS SUMMARY | 2025-03-20 13:42 | XMS_ITS | Encounter Summary ---
Author Organization [place] [address] Care Team Providers Care Dental Appliance Mechanic Name Role Phone Idania Cobb RN Unavailable Maxx Khan MD Unavailable [phone] Obdulia Mazariegos RN Unavailable Unavailable Bhavesh Poole MD Unavailable Elena Buck Clerical Staff Unavailable Reason for Visit * Reason Comments Follow-up otv * Radiation Therapy (Routine) - Authorization Not Needed Specialty Diagnoses / Procedures Referred By Contac t Referred To Contact Radiation Oncology Diagnoses Secondary malignant neoplasm of bone (HCC) Procedures CHG RADIATION TREATMENT DELIVERY >=1 MEV COMPLEX 3D X 5 Bhavesh Poole MD [address] [place] [address] Phone: tel: fax: [facility] [place] [place] [address] Phone: tel: fax: Referral ID Status Reason Start Date Expiration Date Visits Requested Visits Authorized [id number] Authorization Not Needed 02/25/2026 99 99 Encounter Details Date Type Department Care Team (Latest Contact Info) Description 03/20/2025 1:42 PM EST - 03/20/2025 11:59 PM EST Hospital Encounter [facility] [place] [place] [address] Bhavesh Poole MD [address] [place] [address] Secondary malignant neoplasm of bone (HCC) (Primary [...] Sign Reading Time Taken Comments Blood Pressure 152/72 03/20/2025 2:27 PM EST Pulse 83 03/20/2025 2:27 PM EST Temperature 36.8 C (98.2 F) 03/20/2025 2:27 PM EST Respiratory Rate 18 03/20/2025 2:27 PM EST Oxygen Saturation 97% 03/20/2025 2:27 PM EST Inhaled Oxygen Concentration - - Weight 104.1 kg (229 lb 6.4 oz) 03/20/2025 2:27 PM EST Height - - Body Mass Index 39.38 03/09/2025 1:35 PM EST documented in this [...] mouth daily. nalOXone (NARCAN) 4 mg/actuation Nasl [place], Non-AerosolIndic ations:Invasive ductal carcinoma of right breast, stage 4 (HCC) 0.1 mL by Nasal route as needed for Opioid Reversal. [place] the contents of one device (0.1mL) into [...] documented in this encounter Progress Notes * Aury Domínguez, RT - 03/20/2025 2:09 PM EST Pretreatment History: Metastatic Breast Cancer Treatment Technique: 3D Concurrent Systemic Therapy: Yes Pain: Yes The plan of care for pain includes the following interventions: Patient and/or family education Course: C1 Treatment Site Ref. ID Energy Dose/Fx (cGy) #Fx Dose Correction (cGy) Total Dose (cGy) Start Date End Date Elapsed Days RtFemur Ref_pnt_RtFemur 15X 400 0 2,000 03/16/2025 03/20/2025 4 L1-L3_Spine Ref_pnt_L1-L3 15X 400 0 2,000 03/16/2025 03/20/2025 4 T5_Spine Ref_pnt_T5 10X/6X 400 5 / 0 2,000 03/16/2025 03/20/2025 4 Treatment Course: C1 Plan for Follow-Up: Return to clinic in 12 weeks ? * Bhavesh Poole MD - 03/20/2025 1:45 PM EST RADIATION ONCOLOGY WEEKLY TREATMENT NOTE Patient Name: Rosario Man : 1960 DOS: 03/20/2025 SITE: bone femur and spine CURRENT/TOTAL DOSES: 2000/2000 cGy CONCURRENT CHEMOTHERAPY: no SUBJECTIVE: Not requiring pain medications. Pain better than it was. Reports fatigue. Nausea anti nausea meds help. No skin irritation. Reports diarrhea at times. No appetite. KK PHYSICAL EXAM: BP 152/72 (BP Location: Left arm, Patient Position: Sitting) Pulse 83 Temp 98.2 ??F (36.8 ??C) (Forehead) Resp 18 Wt 229 lb 6.4 oz (104.1 kg) SpO2 97% BMI 39.38 kg/m?? Wt Readings from Last 3 Encounters: 03/20/25 229 lb 6.4 oz (104.1 kg) 03/09/25 232 lb 11.2 oz (105.6 kg) 03/02/25 236 lb 11.2 oz (107.4 kg) Physical Exam Constitutional: Appearance: Normal appearance. Sitting comfortably in chair. On nasal cannula. Cardiovascular: Rate and Rhythm: Normal rate and regular rhythm. Pulmonary: Effort: Pulmonary effort is normal. Abdominal: General: Abdomen is flat. Neurological: General: No focal deficit present. Mental Status: He is alert and oriented to person, place, and time. Mental status is at baseline. Psychiatric: Mood and Affect: Mood normal. Behavior: Behavior normal. ASSESSMENT/PLAN: The plan of care for pain includes the following Interventions: Patient and/or family education Rosario was seen today for follow-up. Diagnoses and all orders for this visit: Secondary malignant neoplasm of bone (HCC) Tolerated radiation therapy without any untoward complications. To both upper and mid back pain of largely improved. She has some associated nausea with treatment, taking Zofran and Compazine with good response. Otherwise she has no other complaints. She is currently also undergoing systemic therapy. Will arrange for a 3-month follow-up appointment to assess clinical response to treatment. Otherwise the patient was to get a hold of our team should she have any questions or concerns. Systemic therapy per medical oncology. Bhavesh Poole MD documented in this encounter Plan of Treatment Upcoming Encounters Date Type Department Care Team (Late st Contact Info) Description 05/01/2025 12:30 PM EST Appointment [facility] [place] [id number] Maxx Khan MD [address] [place] [address] [place] [address] 05/04/2025 8:15 AM EST Appointment [facility] [place] [id number] 05/04/2025 8:45 AM EST [facility]ointment [facility] [place] [address] Maxx Khan MD [address] [place] [address] [address] [place] [facility]17 05/04/2025 9:00 AM EST Appointment [facility] [place], [place] [id number] 05/28/2025 10:30 AM EST Appointment [facility] [place] [address] Maxx Khan MD [address] [place] [address] [place] [address] 06/26/2025 10:15 AM EST Appointment [facility] [place] [place] [address] Consuelo Ugarte APRN [address] [place] [address] [address] [place] [place] [address] documented as of this encounter Goals Goal [...] marrow documented in this encounter Care Teams Dental Appliance Mechanic Relationship Specialty Start Date End Date Idania Cobb RN Oncology Nurse Navigator 01/22/25 Maxx Khan MD 1 [place] [address] Medical Oncologist Internal Medicine-Medical Oncology 02/18/25 Obdulia Mazariegos, ANTHONY Registered Nurse 02/18/25 Bhavesh Poole MD 1 [place] [address] Radiation Oncologist Radiology-Radiation Oncology 02/24/25 Elena Buck, Clerical Staff Financial Counselor 02/27/25 documented as of this encounter
--- OUTSIDE RECORDS SUMMARY | 2025-03-20 13:42 | XMS_ITS | Encounter Summary ---
Author Organization [place] [address] Care Team Providers Care It Support Consultant Name Role Phone Idania Cobb RN Unavailable Maxx Khan MD Unavailable [phone] Obdulia Mazariegos RN Unavailable Unavailable Bhavesh [...] COMPLEX 3D X 5 Bhavesh Poole MD [address] [place] [address] Phone: tel: fax: [place] [address] Phone: tel: fax: Referral ID Status Reason Start Date Expiration Date Visits Requested Visits Authorized [id number] Authorization Not Needed 02/25/2026 99 99 Encounter Details Date Type Department Care Team (Latest Contact Info) Description 03/20/2025 1:42 PM EST - 03/20/2025 11:59 PM EST Hospital Encounter [place] [address] Bhavesh Poole MD [address] [place] [address] Secondary malignant neoplasm of bone (HCC) (Primary [...] mouth daily. nalOXone (NARCAN) 4 mg/actuation Nasl [place], Non-AerosolIndic ations:Invasive ductal carcinoma of right breast, stage 4 (HCC) 0.1 mL by Nasal route as needed for Opioid Reversal. [place] the contents of one device (0.1mL) into [...] Info) Description 05/01/2025 12:30 PM EST Appointment [facility] CT [place] [id number] Maxx Khan MD [address] [place] [address] [place] [address] 05/04/2025 8:15 AM EST Appointment [facility] [place] [id number] 05/04/2025 8:45 AM EST [facility]ment [facility] [place] [address] Maxx Khan MD [address] [place] [address] [address] [facility]17 05/04/2025 9:00 AM EST Appointment [facility] [place], [place] [id number] 05/28/2025 10:30 AM EST Appointment [facility] [place] [address] Maxx Khan MD [address] [place] [address] [place] [address] 06/26/2025 10:15 AM EST Appointment [facility] [address] Consuelo Ugarte APRN [address] [place] [address] [address] [place] [place] [address] documented as of this encounter Goals Goal [...] marrow documented in this encounter Care Teams It Support Consultant Relationship Specialty Start Date End Date Idania Cobb RN Oncology Nurse Navigator 01/22/25 Maxx Khan MD 1 [place] [address] Medical Oncologist Internal Medicine-Medical Oncology 02/18/25 Obdulia Mazariegos, ANTHONY Registered Nurse 02/18/25 Bhavesh Poole MD 1 [place] [address] Radiation Oncologist Radiology-Radiation Oncology 02/24/25 Elena Buck, Clerical Staff Financial Counselor 02/27/25 documented as of this encounter
--- OUTSIDE RECORDS SUMMARY | 2025-03-23 08:15 | XMS_ITS | Encounter Summary ---
Author Organization [place] [address] Care Team Providers Care Forming Machine Operator Name Role Phone Idania Cobb RN Unavailable Maxx Khan MD Unavailable [phone] Obdulia Mazariegos RN Unavailable Unavailable Bhavesh Poole MD Unavailable Elena Buck Clerical Staff Unavailable Ankush Jean RN Unavailable Unavailable Encounter Details Date Type Department Care Team (Latest Contact Info) Description 03/23/2025 8:15 AM EST - 03/23/2025 8:24 AM EST Hospital Encounter [facility] [address] Invasive ductal carcinoma of breast, [...] mouth daily. nalOXone (NARCAN) 4 mg/actuation Nasl [place], Non-AerosolIndic ations:Invasive ductal carcinoma of right breast, stage 4 (HCC) 0.1 mL by Nasal route as needed for Opioid Reversal. [place] the contents of one device (0.1mL) into [...] Info) Description 05/01/2025 12:30 PM EST Appointment [facility] [place] [address] Maxx Khan MD [address] [place] [address] [address] [place] [id number] 05/04/2025 8:15 AM EST Appointment [facility] [place], [place] [id number] 05/04/2025 8:45 AM EST [facility]ointment [facility] [place] [address] Maxx Khan MD [address] [place], [place] [id number] 05/04/2025 9:00 AM EST Appointment [facility] [place], [place] [id number] 05/28/2025 10:30 AM EST Appointment [facility] [place] [address] Maxx Khan MD [address] [place] [address] 06/26/2025 10:15 AM EST Appointment [facility] RAD ONC [place], [place] [id number] Consuelo Ugarte APRN [address] [place] [address] documented as of this encounter Goals Goal Patient Goal Type Associated Problems Recent Progress Patient-Stated? Author Formerly [facility], [facility] Yenni Funk, RN Note: Patient acknowledges understanding of new diagnosis, plan of care, available resources and how to contact Nurse Navigator with any future questions or concerns. documented as of this encounter Procedures Procedure Name Priority Date/Time Associated Diagnosis Comments CBC WITH DIFF STAT 03/23/2025 8:22 AM EST Invasive ductal carcinoma of breast, female, right (HCC) MAGNESIUM LEVEL STAT 03/23/2025 8:22 AM EST Invasive ductal carcinoma of breast, female, right (HCC) COMPREHENSIVE METABOLIC PANEL STAT 03/23/2025 8:22 AM EST Invasive ductal carcinoma of breast, female, right (HCC) documented in this encounter Results * (ABNORMAL) COMPREHENSIVE METABOLIC PANEL (03/23/2025 8:22 AM EST) Sodium 140 136 - 145 mmol/L 03/23/2025 8:44 AM [facility] Potassium 4.0 3.5 - 5.0 mmol/L 03/23/2025 8:44 AM EST [facility] Chloride 106 98 - 107 mmol/L 03/23/2025 8:44 AM [facility] Total CO2 19(L) 22 - 29 mmol/L 03/23/2025 8:44 AM [facility] Anion Gap 15 7 - 16 mmol/L 03/23/2025 8:44 AM [facility] Calcium 8.7(L) 8.8 - 10.4 mg/dL 03/23/2025 8:44 AM [facility] Glucose Lvl 190(H) 70 - 99 mg/dL 03/23/2025 8:44 AM [facility] BUN 19 8 - 23 mg/dL 03/23/2025 8:44 AM [facility] Creatinine 0.63 0.51 - 1.30 mg/dL 03/23/2025 8:44 AM [facility] Albumin 3.7 3.2 - 4.6 gm/dL 03/23/2025 8:44 AM [facility] Total Protein 6.5 6.4 - 8.3 gm/dL 03/23/2025 8:44 AM [facility] Bili Total 0.4 0.2 - 1.3 mg/dL 03/23/2025 8:44 AM [facility] ALT 26 <=41 U/L 03/23/2025 8:44 AM [facility] AST 13 <=40 U/L 03/23/2025 8:44 AM [facility] Alk Phos 127(H) 36 - 123 U/L 03/23/2025 8:44 AM [facility] eGFR (CKD-EPIcr 2020) 98 >=60 mL/min/1.7 3 m2 03/23/2025 8:44 AM [facility] Comment:Estimated GFR was ca lculated using the CKD-EPIcr (2020) equation refit without race. The equation is recommended by the National Kidney Foundation - [employer] Nephrology Task Force. Blood VENOUS BLOOD / Unknown Port / Unknown 03/23/2025 8:22 AM EST 03/23/2025 8:24 AM EST us Maxx Khan MD CHEMISTRY ORDERABLES Final Res ult [facility] 1 [place] [address] * (ABNORMAL) CBC WITH DIFF (03/23/2025 8:22 AM EST) WBC 9.4 3.7 - 10.3 x10(3)/mcL 03/23/2025 8:28 AM EST [facility] RBC 4.15 3.90 - 5.20 x10(6)/mcL 03/23/2025 8:28 AM [facility] Hgb 12.1 11.2 - 15.7 g/dL 03/23/2025 8:28 AM [facility] Hct 36.5 34.0 - 45.0 % 03/23/2025 8:28 AM [facility] MCV 88.0 80.0 - 100.0 fL 03/23/2025 8:28 AM [facility] MCH 29.2 26.0 - 34.0 pg 03/23/2025 8:28 AM [facility] MCHC 33.2 30.7 - 35.5 g/dL 03/23/2025 8:28 AM [facility] RDW 13.6 <=14.9 % 03/23/2025 8:28 AM EST [facility] Platelet 337 155 - 369 x10(3)/mcL 03/23/2025 8:28 AM [facility] MPV 8.8 8.8 - 12.5 fL 03/23/2025 8:28 AM EST [facility] Neut # Prelim 8.5(H) 1.6 - 6.1 x10(3)/mcL 03/23/2025 8:28 AM [facility] Comment:Preliminary automate d absolute neutrophil count. Value may change if manual differential is indicated. Neut Percent 91.4 % 03/23/2025 8:28 AM [facility] Comment:Neutrophils equals s egs plus bands Imm Gran% 1.7 % 03/23/2025 8:28 AM [facility] Comment:Automated count of m etamyelocytes, myelocytes and promyelocytes. IG >1% represents a left shift and provides an early indication of an infection or inflammatory process. Lymph Percent 4.7 % 03/23/2025 8:28 AM [facility] [place] Percent 2.0 % 03/23/2025 8:28 AM [facility] Eos Percent 0.0 % 03/23/2025 8:28 AM [facility] Baso Percent 0.2 % 03/23/2025 8:28 AM [facility] Neut # 8.5(H) 1.6 - 6.1 x10(3)/mcL 03/23/2025 8:28 AM [facility] Comment:Neutrophils equals s egs plus bands IMMGRAN# 0.2(H) 0.0 - 0.1 x10(3)/mcL 03/23/2025 8:28 AM [facility] Comment:Automated count of m etamyelocytes, myelocytes and promyelocytes. An absolute IG <0.1 is reported as 0.0. Lymph # 0.4(L) 1.2 - 3.9 x10(3)/mcL 03/23/2025 8:28 AM [facility] [place] # 0.2(L) 0.3 - 0.9 x10(3)/mcL 03/23/2025 8:28 AM [facility] Eos# 0.0 0.0 - 0.5 x10(3)/mcL 03/23/2025 8:28 AM [facility] Baso # 0.0 0.0 - 0.1 x10(3)/mcL 03/23/2025 8:28 AM [facility] Blood VENOUS BLOOD / Unknown Port / Unknown 03/23/2025 8:22 AM EST 03/23/2025 8:24 AM EST us Maxx Khan MD HEMATOLOGY ORDERABLES Final Re sult Performing Organization Address City/[facility]/ZIP Co de Phone Number [facility] [address] [place] [address] * MAGNESIUM LEVEL (03/23/2025 8:22 AM EST) Magnesium 2.2 1.6 - 2.4 mg/dL 03/23/2025 8:44 AM EST [facility] Blood VENOUS BLOOD / Unknown Port / Unknown 03/23/2025 8:22 AM EST 03/23/2025 8:24 AM EST us Maxx Khan MD CHEMISTRY ORDERABLES Final Res ult Performing Organization Address [facility] Co de Phone Number [facility] [address] [place] [address] documented in this encounter Visit Diagnoses Diagnosis Invasive ductal carcinoma of breast, female, right (HCC)- Primary documented in this encounter Administered Medications Inactive Administered Medications - up to 1 most recent administrations Medication Order MAR Action Action Date Dose Rate Site sodium chloride 0.9 % sterile syringe 10 mL 10 mL, Intravenous, ONCE, 1 dose, On 03/23/25 at 0830, For initial access of Venous Access Device., Dx: 1. Invasive ductal carcinoma of breast, female, right (HCC)Indications:Invasive ductal carcinoma of breast, female, right (HCC) Given 03/23/2025 8:23 AM EST 10 mL documented in this encounter Orders Medications Ordered That Demetrio ht Not Have Been Administered Count Last Ordered Date First Ordered Date sodium chloride 0.9 % steril e syringe 10 mL 1 03/23/2025 documented in this encounter Care Teams Forming Machine Operator Relationship Specialty Start Date End Date Idania Cobb RN Oncology Nurse Navigator 01/22/25 Maxx Khan MD 1 [place] [address] Medical Oncologist Internal Medicine-Medical Oncology 02/18/25 Obdulia Mazariegos, RN Registered Nurse 02/18/25 Bhavesh Poole MD 1 [place] [address] Radiation Oncologist Radiology-Radiation Oncology 02/24/25 Elena Buck, Clerical Staff Financial Counselor 02/27/25 Ankush Jean, ANTHONY Registered Nurse Infusion Therapy 03/23/25 03/23/25 documented as of this encounter
--- OUTSIDE RECORDS SUMMARY | 2025-03-23 08:15 | XMS_ITS | Encounter Summary ---
Author [place] [address] Care Team Providers Care Court Attendant Name Role Phone Idania Cobb RN Unavailable Maxx Khan MD Unavailable [phone] Obdulia Mazariegos RN Unavailable Unavailable Bhavesh Poole MD Unavailable Elena Buck Clerical Staff Unavailable Ankush Jean RN Unavailable Unavailable Encounter Details Date Type Department Care Team (Latest Contact Info) Description 03/23/2025 8:15 AM EST - 03/23/2025 8:24 AM EST Hospital Encounter [place] [address] Invasive ductal carcinoma of breast, [...] mouth daily. nalOXone (NARCAN) 4 mg/actuation Nasl [place], Non-AerosolIndic ations:Invasive ductal carcinoma of right breast, stage 4 (HCC) 0.1 mL by Nasal route as needed for Opioid Reversal. [place] the contents of one device (0.1mL) into [...] Info) Description 05/01/2025 12:30 PM EST Appointment [facility] [place] [address] Maxx Khan MD [address] [place] [address] [address] [place] [id number] 05/04/2025 8:15 AM EST Appointment [facility] [place], [place] [id number] 05/04/2025 8:45 AM EST [facility]ment [facility] [place] [address] Maxx Khan MD [address] [facility] [address] [place], [place] [id number] 05/04/2025 9:00 AM EST Appointment [facility] [place] [place], [place] [id number] 05/28/2025 10:30 AM EST Appointment [facility] [place] [address] Maxx Khan MD [address] [facility] [place] [address] 06/26/2025 10:15 AM EST Appointment [facility] RAD ONC [place], [place] [id number] Consuelo Ugarte APRN 1 [facility] [place] [address] documented as of this encounter Goals Goal Patient Goal Type Associated Problems Recent Progress Patient-Stated? Author [facility] Yenni Funk, RN Note: Patient acknowledges [...] 136 - 145 mmol/L 03/23/2025 8:44 AM [facility] Potassium 4.0 3.5 - 5.0 mmol/L 03/23/2025 8:44 AM EST [facility] Chloride 106 98 - 107 mmol/L 03/23/2025 8:44 AM [facility] Total CO2 19(L) 22 - 29 mmol/L 03/23/2025 8:44 AM [facility] Anion Gap 15 7 - 16 mmol/L 03/23/2025 8:44 AM [facility] Calcium 8.7(L) 8.8 - 10.4 mg/dL 03/23/2025 8:44 AM [facility] Glucose Lvl 190(H) 70 - 99 mg/dL 03/23/2025 8:44 AM [facility] BUN 19 8 - 23 mg/dL 03/23/2025 8:44 AM [facility] Creatinine 0.63 0.51 - 1.30 mg/dL 03/23/2025 8:44 AM [facility] Albumin 3.7 3.2 - 4.6 gm/dL 03/23/2025 8:44 AM [facility] Total Protein 6.5 6.4 - 8.3 gm/dL 03/23/2025 8:44 AM [facility] Bili Total 0.4 0.2 - 1.3 mg/dL 03/23/2025 8:44 AM [facility] ALT 26 <=41 U/L 03/23/2025 8:44 AM [facility] AST 13 <=40 U/L 03/23/2025 8:44 AM [facility] Alk Phos 127(H) 36 - 123 U/L 03/23/2025 8:44 AM [facility] eGFR (CKD-EPIcr 2020) 98 >=60 mL/min/1.7 3 m2 03/23/2025 8:44 AM [facility] Comment:Estimated GFR was ca lculated using the CKD-EPIcr (2020) equation refit without race. The equation is recommended by the National Kidney Foundation - [place] [employer] of Nephrology Task Force. Blood VENOUS BLOOD / Unknown Port / Unknown 03/23/2025 8:22 AM EST 03/23/2025 8:24 AM EST us Maxx Khan MD CHEMISTRY ORDERABLES Final Res ult [facility] 1 [place] [address] * (ABNORMAL) CBC WITH DIFF (03/23/2025 8:22 AM EST) WBC 9.4 3.7 - 10.3 x10(3)/mcL 03/23/2025 8:28 AM EST [facility] RBC 4.15 3.90 - 5.20 x10(6)/mcL 03/23/2025 8:28 AM [facility] Hgb 12.1 11.2 - 15.7 g/dL 03/23/2025 8:28 AM [facility] Hct 36.5 34.0 - 45.0 % 03/23/2025 8:28 AM [facility] MCV 88.0 80.0 - 100.0 fL 03/23/2025 8:28 AM [facility] MCH 29.2 26.0 - 34.0 pg 03/23/2025 8:28 AM [facility] MCHC 33.2 30.7 - 35.5 g/dL 03/23/2025 8:28 AM [facility] RDW 13.6 <=14.9 % 03/23/2025 8:28 AM EST [facility] Platelet 337 155 - 369 x10(3)/mcL 03/23/2025 8:28 AM [facility] MPV 8.8 8.8 - 12.5 fL 03/23/2025 8:28 AM EST [facility] Neut # Prelim 8.5(H) 1.6 - 6.1 x10(3)/mcL 03/23/2025 8:28 AM [facility] Comment:Preliminary automate d absolute neutrophil count. Value may change if manual differential is indicated. Neut Percent 91.4 % 03/23/2025 8:28 AM [facility] Comment:Neutrophils equals s egs plus bands Imm Gran% 1.7 % 03/23/2025 8:28 AM [facility] Comment:Automated count of m etamyelocytes, myelocytes and promyelocytes. IG >1% represents a left shift and provides an early indication of an infection or inflammatory process. Lymph Percent 4.7 % 03/23/2025 8:28 AM [facility] [place] Percent 2.0 % 03/23/2025 8:28 AM [facility] Eos Percent 0.0 % 03/23/2025 8:28 AM [facility] Baso Percent 0.2 % 03/23/2025 8:28 AM [facility] Neut # 8.5(H) 1.6 - 6.1 x10(3)/mcL 03/23/2025 8:28 AM [facility] Comment:Neutrophils equals s egs plus bands IMMGRAN# 0.2(H) 0.0 - 0.1 x10(3)/mcL 03/23/2025 8:28 AM [facility] Comment:Automated count of m etamyelocytes, myelocytes and promyelocytes. An absolute IG <0.1 is reported as 0.0. Lymph # 0.4(L) 1.2 - 3.9 x10(3)/mcL 03/23/2025 8:28 AM [facility] [place] # 0.2(L) 0.3 - 0.9 x10(3)/mcL 03/23/2025 8:28 AM [facility] Eos# 0.0 0.0 - 0.5 x10(3)/mcL 03/23/2025 8:28 AM [facility] Baso # 0.0 0.0 - 0.1 x10(3)/mcL 03/23/2025 8:28 AM [facility] Blood VENOUS BLOOD / Unknown Port / Unknown 03/23/2025 8:22 AM EST 03/23/2025 8:24 AM EST us Maxx Khan MD HEMATOLOGY ORDERABLES Final Re sult Performing Organization Address City/[facility]/ZIP Co de Phone Number [facility] 1 [place] [address] * MAGNESIUM LEVEL (03/23/2025 8:22 AM EST) Magnesium 2.2 1.6 - 2.4 mg/dL 03/23/2025 8:44 AM EST [facility] Blood VENOUS BLOOD / Unknown Port / Unknown 03/23/2025 8:22 AM EST 03/23/2025 8:24 AM EST us Maxx Khan MD CHEMISTRY ORDERABLES Final Res ult Performing Organization Address [facility] Co de Phone Number [facility] [address] [place] [address] documented in this encounter Visit Diagnoses Diagnosis [...] 03/23/2025 documented in this encounter Care Teams Court Attendant Relationship Specialty Start Date End Date Idania Cobb RN Oncology Nurse Navigator 01/22/25 Maxx Khan MD 1 [place] [address] Medical Oncologist Internal Medicine-Medical Oncology 02/18/25 Obdulia Mazariegos, RN Registered Nurse 02/18/25 Bhavesh Poole MD 1 [place] [address] Radiation Oncologist Radiology-Radiation Oncology 02/24/25 Elena Buck, Clerical Staff Financial Counselor 02/27/25 Ankush Jean, ANTHONY Registered Nurse Infusion Therapy 03/23/25 03/23/25 documented as of this encounter
--- OUTSIDE RECORDS SUMMARY | 2025-03-23 08:25 | XMS_ITS | Encounter Summary ---
Author Organization [place] [address] Care Team Providers Care Desk Sergeant Name Role Phone Idania Cobb RN Unavailable Maxx Khan MD Unavailable [phone] Obdulia Mazariegos RN Unavailable Unavailable Bhavesh oPole MD Unavailable Elena Buck Clerical Staff Unavailable Ankush Jean RN Unavailable Unavailable Reason for Referral * Echo (Routine) - Pending Review Specialty Diagnoses / Procedures Referred By Pratik t Referred To Contact Radiology Diagnoses Encounter for monitoring cardiotoxic drug therapy Procedures EC ECHOCARDIOGRAM LIMITED Maxx Khan MD [address] [place] [address] [place] [address] Phone: tel: fax: Referral ID Status Reason Start Date Expiration Date V isits Requested Visits Authorized [id number] Pending Review 03/20/2025 03/20/2027 1 1 Reason for Visit * Reason Comments Follow-up Breast Cancer Chemotherapy [facility] Encounter Details Date Type Department Care Team (Latest Contact Info) Description 03/23/2025 8:25 AM EST - 03/23/2025 8:59 AM EST Hospital Encounter [facility] [place] [address] Maxx Khan MD [address] [place] [address] Invasive ductal carcinoma of right breast, stage 4 (HCC) (Primary Dx); Encounter for chemotherapy management; Encounter for antineoplastic chemotherapy; Encounter for monitoring cardiotoxic drug therapy; Nosebleed; Chemotherapy induced diarrhea Discharge Disposition: Home or Self Care Social [...] Sign Reading Time Taken Comments Blood Pressure 129/77 03/23/2025 8:42 AM EST Pulse 85 03/23/2025 8:42 AM EST Temperature 36.7 C (98.1 F) 03/23/2025 8:42 AM EST Respiratory Rate 16 03/23/2025 8:42 AM EST Oxygen Saturation 98% 03/23/2025 8:42 AM EST Inhaled Oxygen Concentration - - Weight 104.5 kg (230 lb 4.8 oz) 03/23/2025 8:42 AM EST Height 162.6 cm (5' 4 ) 03/23/2025 8:42 AM EST Body Mass Index 39.53 03/23/2025 8:42 AM EST documented in this encounter Medications [...] mouth daily. nalOXone (NARCAN) 4 mg/actuation Nasl [place], Non-AerosolIndic ations:Invasive ductal carcinoma of right breast, stage 4 (HCC) 0.1 mL by Nasal route as needed for Opioid Reversal. [place] the contents of one device (0.1mL) into [...] Refills Last Filled Start Date End Date diphenoxylate-atro pine (LOMOTIL) 2.5-0.025 mg Oral TabletIndications: Chemotherapy induced diarrhea Take 2.5 mg by mouth 3 times daily as needed for Diarrhea. 90 Tablet 03/23/2025 oxymetazoline 0.025 % Nasl [place], Non-AerosolIndicat ions:Nosebleed 1 [place] by Nasal route 2 times daily as needed. 30 mL ML 03/23/2025 03/24/2025 documented in this encounter Discharge Disposition Disposition Code Departure Means Destination Home or Self Care documented in this encounter Progress Notes * Maxx Khan MD - 03/23/2025 8:45 AM EST Images from the original note were not included. ONCOLOGY FOLLOW-UP: Primary Oncologist: Maxx Khan MD ONCOLOGY PROBLEM LIST: Oncology History Renal cell cancer, left (HCC) 2017 Initial Diagnosis - Renal cell cancer, left (HCC) - Reports partial nephrectomy 2017 at [place] - States Right Kidney is d/t multiple [...] Surgical Consult with Dr. Jacinto Genetics Negative Food Reporter [facility] Hereditary Cancer Panel (70 genes) CURRENT TREATMENT: C2D1 THP INTERVAL HISTORY: Ms. Man is a 64 y.o. female who is here for follow up. Patient states that since last visit nosebleeds 2nd week. Breast mass and adenopathy improving. Pain improving and finished radiation. Nausea from radiation. Compazine, zofran. Diarrhea constant starting 2nd day till day 8, using imodium. Neuropathy in feet present before and worse at night. Reviewed past medical, surgical, family, and social histories. PHYSICAL EXAM: Vitals: 03/23/25 0842 BP: 129/77 Pulse: 85 Resp: 16 Temp: 98.1 ??F (36.7 ??C) SpO2: 98% Wt Readings from Last 3 Encounters: 03/23/25 230 lb 4.8 oz (104.5 kg) 03/20/25 229 lb 6.4 oz (104.1 kg) 03/09/25 232 lb 11.2 oz (105.6 kg) GENERAL APPEARANCE: Alert & Cooperative, Oriented X 3 LABS: CBC: Lab Results Component Value Date/Time WBC 9.4 03/23/2025 08:22 AM RBC 4.15 03/23/2025 08:22 AM PLT 337 03/23/2025 08:22 AM CMP: Lab Results Component Value Date NA 140 03/23/2025 K 4.0 03/23/2025 CL 106 03/23/2025 CO2 19 (L) 03/23/2025 ANIONGAP 15 03/23/2025 CALCIUM 8.7 (L) 03/23/2025 GLU 190 (H) 03/23/2025 BUN 19 03/23/2025 CREATININE 0.63 03/23/2025 ALBUMIN 3.7 03/23/2025 PROT 6.5 03/23/2025 LABBILI 0.4 03/23/2025 ALT 26 03/23/2025 AST 13 03/23/2025 IMAGING/Testing All relevant images were reviewed in detail with the patient. All questions were addressed and answered in great detail. IR PORT PLACEMENT EQUAL OR > 5 YEARS Result Date: 02/27/2025 ULTRASOUND AND FLUOROSCOPIC CHEST PORT PLACEMENT: 02/27/2025 HISTORY: C50.911- Malignant neoplasm ofunspecified site of right female breast (HCC)-ICD-10-CM TECHNICAL: [...] Following sterile skin preparation and local anesthesia underultrasound guidance the vein was punctured. This allowed placement of a peel away sheath. Attentionthen turned to the upper chest wall. Using [...] incision was closed with glue. The port wa s accessed and aspirated and flushed freely. A sterile dressing was applied. The patient tolerated the procedure well and left the Radiology Department in stable condition. No immediate complicationsincurred. Estimated blood loss: 5 cc. FLUOROSCOPY TIME: 0.3 minutes. Number of images obtained: 1 Successful and uncomplicated ultrasound and fluoroscopically guided chest port insertion. Port ready for immediate use. CT CHEST RADIATION THERAPY PLANNING WO CONTRAST [...] or neural foraminal compromise, including leftT4-T5and T5-T6. ASSESSMENT AND PLAN: Patient is a 64 [...] IDC grade 2 with first ER 92%, [place] 36%, HER2 3+ and 2nd axillary node ER 91%, LA 45%, HER2 3+, and 2nd breast mass ER 97%, [place] 93%, HER2 1+. MRI showing level I [...] Has port placed on 02/27/25 without issue. C1D1 of THP on 03/02/25. Palliative radiation planned over 5fx to T5, L1-3 and Rt Femoral Neck. Side effects of tx: erythema, flushing with taxotere requiring slower infusion rate and pepcid but tolerated ok. 03/09/25 update: -Side effects: nausea G1- zofran works, diarrhea G2- imodium, prescribed lomotil, neuropathy G1 intermittent (prior baseline)- monitor, add cold neuropathy gloves, nosebleeds- adding afrin; if worsening need ENT referral -Labs: back to normal -Add G-CSF on body to next cycles -Reviewed echo 02/25/25 which was normal, next due in 04/2025, ordered today -G-CSF for claritin 5 days -Ok to proceed with C2D1 of THP; plan for PATINA style regimen for maintenance Follow up in 3 weeks A total of 42 minutes of the encounter was spent in performing the following complex tasks: 1) Reviewing medical records in [facility] and if applicable outside records as well [...] [facility] [place] [address] Maxx Khan MD [address] [place] [id number] 05/04/2025 8:15 AM EST Appointment [place] [address] 05/04/2025 8:45 AM EST Appointment [facility] [place], [place] [id number] Maxx Khan MD [address] [place] [address] 05/04/2025 9:00 AM EST Appointment [facility] [place], [place] [id number] 05/28/2025 10:30 AM EST Appointment [facility] [place] [address] Maxx Khan MD [address] [facility] [place], [place] [id number] 06/26/2025 10:15 AM EST Appointment [facility] RAD ONC [place], [place] [id number] Consuelo Ugarte APRN [address] [place] [address] Scheduled Orders Name Type Priority Associated Diagnoses Order Schedule EC ECHOCARDIOGRAM LIMITED Imaging Cardiology Routine Encounter for monitoring cardiotoxic drug therapy 1 Occurrences starting 03/20/2025 until 03/20/2027 documented as of this encounter Goals Goal Patient Goal Type Associated Problems Recent Progress Patient-Stated? Author [facility] Yenni Funk, ANTHONY Note: Patient acknowledges understanding of new diagnosis, plan of care, available resources and how to contact Nurse Navigator with any future questions or concerns. documented as of this encounter Visit Diagnoses Diagnosis Invasive ductal carcinoma of right breast, stage 4 (HCC)- Primary Encounter for chemotherapy management Encounter for antineoplastic chemotherapy Encounter for monitoring cardiotoxic drug therapy Encounter for therapeutic drug monitoring Nosebleed Epistaxis Chemotherapy induced diarrhea Diarrhea documented in this encounter Discontinued Medications Medication Sig Discontinue Reason Start Date End Da te levoFLOXacin (LEVAQUIN) 750 mg Oral TabletIndications:Acute cystitis with hematuria Take 1 Tablet by mouth daily for 7 days. Cancelled by 03/16/2025 03/23/2025 documented as of this encounter Care Teams Desk Sergeant Relationship Specialty Start Date End Date Idania Cobb RN Oncology Nurse Navigator 01/22/25 Maxx Khan MD 1 [place] [address] Medical Oncologist Internal Medicine-Medical Oncology 02/18/25 Obdulia Mazariegos, RN Registered Nurse 02/18/25 Bhavesh Poole MD 1 [place] [address] Radiation Oncologist Radiology-Radiation Oncology 02/24/25 Elena Buck, Clerical Staff Financial Counselor 02/27/25 Ankush Jean, RN Registered Nurse Infusion Therapy 03/23/25 03/23/25 documented as of this encounter
--- OUTSIDE RECORDS SUMMARY | 2025-03-23 08:25 | XMS_ITS | Encounter Summary ---
Author Organization [place] [address] Care Team Providers Care Polymer Engineer Name Role Phone Idania Cobb RN Unavailable Maxx Khan MD Unavailable [phone] Obdulia Mazariegos RN Unavailable Unavailable Bhavesh Poole MD Unavailable Elena Buck Clerical Staff Unavailable Ankush Jean RN Unavailable Unavailable Reason for Referral * Echo (Routine) - Pending Review Specialty Diagnoses / Procedures Referred By Pratik t Referred To Contact Radiology Diagnoses Encounter for monitoring cardiotoxic drug therapy Procedures EC ECHOCARDIOGRAM LIMITED Maxx Khan MD [address] [place] [address] [place] [address] Phone: tel: fax: Referral ID Status Reason Start Date Expiration Date V isits Requested Visits Authorized [id number] Pending Review 03/20/2025 03/20/2027 1 1 Reason for Visit * Reason Comments Follow-up Breast Cancer Chemotherapy Immunotherapy [facility] Encounter Details Date Type Department Care Team (Latest Contact Info) Description 03/23/2025 8:25 AM EST - 03/23/2025 8:59 AM EST Hospital Encounter [facility] [place] [address] Maxx hKan MD [address] [facility] [place] [address] Invasive ductal carcinoma of right [...] mouth daily. nalOXone (NARCAN) 4 mg/actuation Nasl [place], Non-AerosolIndic ations:Invasive ductal carcinoma of right breast, stage 4 (HCC) 0.1 mL by Nasal route as needed for Opioid Reversal. [place] the contents of one device (0.1mL) into [...] 90 Tablet 03/23/2025 oxymetazoline 0.025 % Nasl [place], Non-AerosolIndicat ions:Nosebleed 1 [place] by Nasal route 2 times daily as [...] (HCC) - Reports partial nephrectomy 2017 at [place] - States Right Kidney is d/t multiple [...] Surgical Consult with Dr. Jacinto Genetics Negative [place] Hereditary Cancer Panel (70 genes) CURRENT TREATMENT: [...] IDC grade 2 with first ER 92%, [place] 36%, HER2 3+ and 2nd axillary node ER 91%, [place] 45%, HER2 3+, and 2nd breast mass ER 97%, [place] 93%, HER2 1+. MRI showing level I [...] complex tasks: 1) Reviewing medical records in [facility] and if applicable outside records as [...] Info) Description 05/01/2025 12:30 PM EST Appointment [facility] [place] [address] Maxx Khan MD [address] [place] [id number] 05/04/2025 8:15 AM EST Appointment [facility] [place] [address] 05/04/2025 8:45 AM EST Appointment [facility] [place], [place] [id number] Mxax Khan MD [address] [facility] [place] [address] 05/04/2025 9:00 AM EST Appointment [facility] [place], [place] [id number] 05/28/2025 10:30 AM EST Appointment [facility] [place] [address] Maxx Khan MD [address] [facility] [place], [place] [id number] 06/26/2025 10:15 AM EST Appointment [facility] ONC [place], [place] [id number] Consuelo Ugarte APRN [address] [facility] [place] [address] Scheduled Orders Name Type Priority Associated Diagnoses Order Schedule EC ECHOCARDIOGRAM LIMITED Imaging Cardiology Routine Encounter for monitoring cardiotoxic drug therapy 1 Occurrences starting 03/20/2025 until 03/20/2027 documented as of this encounter Goals Goal Patient Goal Type Associated Problems Recent Progress Patient-Stated? Author [facility] Yenni Funk, ANTHONY Note: Patient [...] documented as of this encounter Care Teams Polymer Engineer Relationship Specialty Start Date End Date Idaina Cobb RN Oncology Nurse Navigator 01/22/25 Maxx Khan MD 1 [place] [address] Medical Oncologist Internal Medicine-Medical Oncology 02/18/25 Obdulia Mazariegos, RN Registered Nurse 02/18/25 Bhavesh Poole MD 1 [place] [address] Radiation Oncologist Radiology-Radiation Oncology 02/24/25 Elena Buck, Clerical Staff Financial Counselor 02/27/25 Ankush Jean, RN Registered Nurse Infusion Therapy 03/23/25 03/23/25 documented as of this encounter
--- OUTSIDE RECORDS SUMMARY | 2025-03-23 09:00 | XMS_ITS | Encounter Summary ---
Author Organization [place] [address] Care Team Providers Care Deputy Editor In Chief Name Role Phone Idania Cobb RN Unavailable Maxx Khan MD Unavailable [phone] Obdulia Mazariegos RN Unavailable Unavailable Bhavesh Poole MD Unavailable Elena Buck Clerical Staff Unavailable Ankush Jean RN Unavailable Unavailable Reason for Visit * Oncology Medication Prior Authorization (Routine) - Authorization Not Needed Specialty Diagnoses / Procedures Referred By Contac t Referred To Contact Diagnoses Invasive ductal carcinoma of breast, female, right (HCC) Procedures ONCOLOGY MEDICATION AUTHORIZATION Maxx Khan MD [address] [place] [address] Phone: tel: fax: Maxx Khan MD [address] [place] [address] Phone: tel: fax: Referral ID Status Reason Start Date Expiration Date Visits Requested Visits Authorized [id number] Authorization Not Needed 03/01/2025 03/04/2026 1 20 Encounter Details Date Type Department Care Team (Latest Contact Info) Description 03/23/2025 9:00 AM EST - 03/23/2025 11:59 PM EST Hospital Encounter [facility] [address] Ankush Jean, rehabilitation case coordinator ductal carcinoma of breast, female, right (HCC) [...] Sign Reading Time Taken Comments Blood Pressure 142/74 03/23/2025 2:50 PM EST Pulse 75 03/23/2025 2:50 PM EST Temperature - - Respiratory Rate 17 03/23/2025 2:50 PM EST Oxygen Saturation - - Inhaled Oxygen Concentration - - Weight - - Height - - Body Mass Index - - documented in this encounter Medications at Time of Discharge aspirin 81 mg Oral Tablet, Delayed Release (E.C.) Take 81 mg by mouth daily. atorvastatin (LIPITOR) 40 mg Oral Tablet Take 40 mg by mouth daily. DILT-XR 240 mg Oral Capsule,Degradab le Cnt Release Take 240 mg by mouth daily. diphenoxylate-at ropine (LOMOTIL) 2.5-0.025 mg Oral TabletIndication s:Chemotherapy induced diarrhea Take 2.5 mg by mouth 3 times daily as needed for Diarrhea. 90 Tablet 03/23/2025 lidocaine-priloc tim (EMLA) Top CreamIndications :Invasive ductal carcinoma of right breast, stage 4 (HCC) Apply topically as needed for Pain. Apply one nickel sized glob over port approx 1 hour before appt. DO NOT RUB IN. Cover with plastic wrap 30 g 02/25/2025 lisinopriL (PRINIVIL;ZESTRI L) 20 mg Oral Tablet tablet Take 20 mg by mouth daily. nalOXone (NARCAN) 4 mg/actuation Nasl [place]ine[place], Non-AerosolIndic ations:Invasive ductal carcinoma of right breast, stage 4 (HCC) 0.1 mL by Nasal route as needed for Opioid Reversal. Cinebar the contents of one device (0.1mL) into [...] of treatment). 28 Tablet 1 02/18/2025 5 oxymetazoline 0.025 % Nasl Cinebar, Non-AerosolIndic ations:Nosebleed 1 Cinebar by Nasal route 2 times daily as needed. 30 mL ML 03/23/2025 5 documented as of this encounter Discharge Disposition Disposition Code Departure Means Destination Home or Self Care documented in this encounter Miscellaneous Notes * Patient Instructions - Ankush Jean, RN - 03/23/2025 9:00 AM EST [facility] Discharge Instructions Thank [facility]. We hope you are pleased with your outpatient care and services. Because we are most concerned with your health, we suggest you carefully read the following discharge instructions: Your Discharge Instructions: MEDICATION INSTRUCTIONS: Treatment received today: Orders Placed This Encounter 0.9 % NaCl infusion sodium chloride 0.9% syringe 10 mL heparin flush 100 unit/mL injection 500 Units diphenhydrAMINE (BENADRYL) injection 25 mg ondansetron (ZOFRAN) injection 8 mg dexAMETHasone (DECADRON) tablet 12 mg prochlorperazine edisylate (COMPAZINE) injection 10 mg pertuzumab (PERJETA) 420 mg in sodium chloride 0.9 % 250 mL chemo infusion trastuzumab-anns (KANJINTI) 650 mg in sodium chloride 0.9 % 250 mL chemo infusion DOCEtaxeL (TAXOTERE) 160 mg in sodium chloride 0.9 % 250 mL chemo infusion famotidine (PEPCID) injection 20 mg pegfilgrastim-cbqv (UDENYCA) on-body injector 6 mg Reviewed medications administered today and possible side [...] infection DON'T WAIT, PLEASE CALL US FIRST [phone]. [FOR URGENT ISSUES PLEASE DO NOT LEAVE A MESSAGE, FOLLOW PROMPTS TO THE DOCTOR SCIENTIFIC DIVER] For Gynecology / Oncology call : [phone] Our hours of operation are Sunday - Sunday 8:00 AM - 4:30 PM. [facility] [place] [address] 891 [phone] [address] Results for orders placed or performed during the hospital encounter of 03/23/25 MAGNESIUM LEVEL Result Value Ref Range Magnesium 2.2 1.6 - 2.4 mg/dL CBC WITH DIFF Result Value Ref Range WBC 9.4 3.7 - 10.3 x10(3)/mcL RBC 4.15 3.90 - 5.20 x10(6)/mcL Hgb 12.1 11.2 - 15.7 g/dL Hct 36.5 34.0 - 45.0 % MCV 88.0 80.0 - 100.0 fL MCH 29.2 26.0 - 34.0 pg MCHC 33.2 30.7 - 35.5 g/dL RDW 13.6 <=14.9 % Platelet 337 155 - 369 x10(3)/mcL MPV 8.8 8.8 - 12.5 fL Neut # Prelim 8.5 (H) 1.6 - 6.1 x10(3)/mcL Neut Percent 91.4 % Imm Gran% 1.7 % Lymph Percent 4.7 % Martin Percent 2.0 % Eos Percent 0.0 % Baso Percent 0.2 % Neut # 8.5 (H) 1.6 - 6.1 x10(3)/mcL IMMGRAN# 0.2 (H) 0.0 - 0.1 x10(3)/mcL Lymph # 0.4 (L) 1.2 - 3.9 x10(3)/mcL Martin # 0.2 (L) 0.3 - 0.9 x10(3)/mcL Eos# 0.0 0.0 - 0.5 x10(3)/mcL Baso # 0.0 0.0 - 0.1 x10(3)/mcL COMPREHENSIVE METABOLIC PANEL Result Value Ref Range Sodium 140 136 - 145 mmol/L Potassium 4.0 3.5 - 5.0 mmol/L Chloride 106 98 - 107 mmol/L Total CO2 19 (L) 22 - 29 mmol/L Anion Gap 15 7 - 16 mmol/L Calcium 8.7 (L) 8.8 - 10.4 mg/dL Glucose Lvl 190 (H) 70 - 99 mg/dL BUN 19 8 - 23 mg/dL Creatinine 0.63 0.51 - 1.30 mg/dL Albumin 3.7 3.2 - 4.6 gm/dL Total Protein 6.5 6.4 - 8.3 gm/dL Bili Total 0.4 0.2 - 1.3 mg/dL ALT 26 <=41 U/L AST 13 <=40 U/L Alk Phos 127 (H) 36 - 123 U/L eGFR (CKD-EPIcr 2020) 98 >=60 mL/min/1.73 m2 documented in this encounter Plan of Treatment Upcoming Encounters Date Type Department Care Team (Late st Contact Info) Description 05/01/2025 12:30 PM EST Appointment [facility] [place], [place] [id number] Maxx Khan MD [address] [facility] [place] [address] 05/04/2025 8:15 AM EST Appointment [facility] [place], [place] [id number] 05/04/2025 8:45 AM EST [facility]ment [facility] [place], [place] [id number] Maxx Khan MD [address] [place] [address] [place], [place] [id number] 05/04/2025 9:00 AM EST Appointment [facility] [place], [place] [id number] 05/28/2025 10:30 AM EST Appointment [facility] [place] [address] Maxx Khan MD [address] [place] [address] [address] [place], [place] [id number] 06/26/2025 10:15 AM EST Appointment [place] [address] Consuelo Ugarte APRN [address] [place] [address] [place] [address] documented as of this encounter Goals Goal Patient Goal Type Associated Problems Recent Progress Patient-Stated? 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 Invasive ductal carcinoma of breast, female, right (HCC)Indications:Invas caty ductal carcinoma of breast, female, right (HCC) Rate/Dose Verify 03/23/2025 11:13 AM EST 30 mL/hr dexAMETHasone (DECADRON) tablet 12 mg 12 mg, Oral, ONCE, 1 dose, On Sun03/23/25 at 0945, Dx: 1. Invasive ductal carcinoma of breast, female, right (HCC)Indications:Invas caty ductal carcinoma of breast, female, right (HCC) Given 03/23/2025 9:51 AM EST 12 mg diphenhydrAMINE (BENADRYL) injection 25 mg 25 mg, Intravenous, ONCE, 1 dose, On Sun03/23/25 at 1130, Dx: 1. Invasive ductal carcinoma of breast, female, right (HCC)Indications:Invas caty ductal carcinoma of breast, female, right (HCC) Given 03/23/2025 12:24 PM EST 25 mg DOCEtaxeL (TAXOTERE) 160 mg in sodium chloride 0.9 % 250 mL chemo infusion 160 mg (rounded from 158.25 mg = 75 mg/m2 2.11 m2 Treatment Plan BSA from Recorded weight), Intravenous, at 50-200 mL/hr, ONCE, 1 dose, On Sun03/23/25 at 1145, Follow Chemotherapy Precautions (Caution - Irritant) Infuse 50 mL/hr x 15 min, 100 mL/hr x 15 min, to a max of 200 mL/hr. Vitals before each rate increase. , Dx: 1. Invasive ductal carcinoma of breast, female, right (HCC)Indications:Invas caty ductal carcinoma of breast, female, right (HCC) Rate/Dose Change 03/23/2025 1:30 PM EST 200 mL/hr famotidine (PEPCID) injection 20 mg 20 mg, Intravenous, ONCE, 1 dose, On Sun03/23/25 at 1130, Dx: 1. Invasive ductal carcinoma of breast, female, right (HCC)Indications:Invas caty ductal carcinoma of breast, female, right (HCC) Given 03/23/2025 12:25 PM EST 20 mg heparin flush 100 unit/mL injection 500 Units 500 Units, Intravenous, PRN, Starting on Sun03/23/25 at 0930, Until Sun03/24/25 at 0413, Line Care, For Venous Access Device care and maintenance., Dx: 1. Invasive ductal carcinoma of breast, female, right (HCC)Indications:Invas caty ductal carcinoma of breast, female, right (HCC) Given 03/23/2025 2:51 PM EST 500 Units ondansetron (ZOFRAN) injection 8 mg 8 mg, Intravenous, ONCE, 1 dose, On Sun03/23/25 at 0945, Dx: 1. Invasive ductal carcinoma of breast, female, right (HCC)Indications:Invas caty ductal carcinoma of breast, female, right (HCC) Given 03/23/2025 9:54 AM EST 8 mg pegfilgrastim-cbqv (UDENYCA) on-body injector 6 mg 6 mg, Subcutaneous, ONCE, 1 dose, On Sun03/23/25 at 1330, The OnBody injector is NOT approved to use with chemotherapy regimens administered more frequently than every two weeks OR in combination with radiation. Allow the syringe and on-body injector to come naturally to room temperature for 30 minutes prior to activating. Do not warm the kit components using a heat source., Please Select Indication: Persistent neutropenia, Please Select Reason for On-body Use: Insurance approved, Dx: 1. Invasive ductal carcinoma of breast, female, right (HCC)Indications:Invas caty ductal carcinoma of breast, female, right (HCC) Given 03/23/2025 2:52 PM EST 6 mg Right Arm pertuzumab (PERJETA) 420 mg in sodium chloride 0.9 % 250 mL chemo infusion 420 mg, Intravenous, at 578 mL/hr, ONCE, 1 dose, On Sun03/23/25 at 1000, Incompatible with D5W., Dx: 1. Invasive ductal carcinoma of breast, female, right (HCC)Indications:Invas caty ductal carcinoma of breast, female, right (HCC) IV Started 03/23/2025 10:40 AM EST 420 mg 578 mL/hr sodium chloride 0.9% syringe 10 mL 10 mL, Intravenous, PRN, Starting on Sun03/23/25 at 0930, Until Sun03/24/25 at 0413, Line Care, For Venous Access Device care and maintenance., Dx: 1. Invasive ductal carcinoma of breast, female, right (HCC)Indications:Invas caty ductal carcinoma of breast, female, right (HCC) Given 03/23/2025 2:51 PM EST 10 mL trastuzumab-anns (KANJINTI) 650 mg in sodium chloride 0.9 % 250 mL chemo infusion 650 mg (rounded from 648 mg = 6 mg/kg 108 kg Treatment plan Recorded weight), Intravenous, ONCE, 1 dose, On 03/23/25 at 1100, Administer over 30 Minutes, NOT compatible with D5W. Initial infusion over 90 minutes; Subsequent doses may be infused over 30 minutes if previous infusions well-tolerated, Dx: 1. Invasive ductal carcinoma of breast, female, right (HCC)Indications:Invas caty ductal carcinoma of breast, female, right (HCC) IV Started 03/23/2025 11:48 AM EST 650 mg 612 mL/hr documented in this encounter Orders Medications Ordered That Demetrio ht Not Have Been Administered Count Last Ordered Date First Ordered Date prochlorperazine edisylate ( COMPAZINE) injection 10 mg 1 03/23/2025 documented in this encounter Care Teams Deputy Editor In Chief Relationship Specialty Start Date End Date Idania Cobb RN Oncology Nurse Navigator 01/22/25 Maxx Khan MD [address] [place] [address] Medical Oncologist Internal Medicine-Medical Oncology 02/18/25 Obdulia Mazariegos, ANTHONY Registered Nurse 02/18/25 Bhavesh Poole MD [address] [id number] Radiation Oncologist Radiology-Radiation Oncology 02/24/25 Elena Buck, Clerical Staff Financial Counselor 02/27/25 Ankush Jean, ANTHONY Registered Nurse Infusion Therapy 03/23/25 03/23/25 documented as of this encounter
--- OUTSIDE RECORDS SUMMARY | 2025-03-23 09:00 | XMS_ITS | Encounter Summary ---
Author Organization [place] [address] Care Team Providers Care Physician Coder Name Role Phone Idania Cobb RN Unavailable Maxx Khan MD Unavailable [phone] Obdulia Mazariegos RN Unavailable Unavailable Bhavesh Poole MD Unavailable Elena Buck Clerical Staff Unavailable Ankush Jean RN Unavailable Unavailable Reason for Visit * Oncology Medication Prior Authorization (Routine) - Authorization Not Needed Specialty Diagnoses / Procedures Referred By Contac t Referred To Contact Diagnoses Invasive ductal carcinoma of breast, female, right (HCC) Procedures ONCOLOGY MEDICATION AUTHORIZATION Maxx Khan MD [address] [place] [address] Phone: tel: fax: Maxx Khan MD [address] [place] [address] Phone: tel: fax: Referral ID Status Reason Start Date Expiration Date Visits Requested Visits Authorized [id number] Authorization Not Needed 03/01/2025 03/04/2026 1 20 Encounter Details Date Type Department Care Team (Latest Contact Info) Description 03/23/2025 9:00 AM EST - 03/23/2025 11:59 PM EST Hospital Encounter [place] [address] Ankush Jean, donor floor technician ductal carcinoma of breast, female, right (HCC) [...] mouth daily. nalOXone (NARCAN) 4 mg/actuation Nasl [place], Non-AerosolIndic ations:Invasive ductal carcinoma of right breast, stage 4 (HCC) 0.1 mL by Nasal route as needed for Opioid Reversal. [place] the contents of one device (0.1mL) into [...] 1 02/18/2025 5 oxymetazoline 0.025 % Nasl [place], Non-AerosolIndic ations:Nosebleed 1 [place] by Nasal route 2 times daily as needed. 30 mL ML 03/23/2025 5 documented as of this encounter Discharge Disposition Disposition Code Departure Means Destination Home or Self Care documented in this encounter Miscellaneous Notes * Patient Instructions - Ankush Jean, RN - 03/23/2025 9:00 AM EST [facility] Discharge Instructions Thank you for entrusting the [...] infection DON'T WAIT, PLEASE CALL US FIRST [phone]. [FOR URGENT ISSUES PLEASE DO NOT LEAVE A MESSAGE, FOLLOW PROMPTS TO THE DOCTOR NET DEVELOPER SOFTWARE ENGINEER C] For Gynecology / Oncology call : [phone] Our hours of operation are Sunday - Sunday 8:00 AM - 4:30 PM. [facility] [place] [address] 854 [phone] [address] Results for orders placed or [...] Gran% 1.7 % Lymph Percent 4.7 % Mayes Percent 2.0 % Eos Percent 0.0 % Baso Percent 0.2 % Neut # 8.5 (H) 1.6 - 6.1 x10(3)/mcL IMMGRAN# 0.2 (H) 0.0 - 0.1 x10(3)/mcL Lymph # 0.4 (L) 1.2 - 3.9 x10(3)/mcL Mayes # 0.2 (L) 0.3 - 0.9 x10(3)/mcL [...] Appointment [facility] [place], [place] [id number] Maxx Khan MD 1 [facility] [place] [address] 05/04/2025 8:15 AM EST Appointment [facility] [place], [place] [id number] 05/04/2025 8:45 AM EST [facility]ment [facility] [place], [place] [id number] Maxx Khan MD [address] [place] [address] [address] [place], [place] [id number] 05/04/2025 9:00 AM EST Appointment [facility] [place], [place] [id number] 05/28/2025 10:30 AM EST Appointment [facility] 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 Invasive ductal [...] 03/23/2025 documented in this encounter Care Teams Physician Coder Relationship Specialty Start Date End Date Idania Cobb RN Oncology Nurse Navigator 01/22/25 Maxx Khan MD [address] [place] [address] Medical Oncologist Internal Medicine-Medical Oncology 02/18/25 Obdulia Mazariegos, ANTHONY Registered Nurse 02/18/25 Bhavesh Poole MD [address] [id number] Radiation Oncologist Radiology-Radiation Oncology 02/24/25 Elena Buck, Clerical Staff Financial Counselor 02/27/25 Ankush Jean, ANTHONY Registered Nurse Infusion Therapy 03/23/25 03/23/25 documented as of this encounter
--- OUTSIDE RECORDS SUMMARY | 2025-04-08 06:15 | XMS_ITS ---
[facility] [address] [facility] [address] [facility] [address] [place] [id number] Care Team Providers Care Diving Coach Name Role Phone Tosin Wilson Unavailable [phone] Allergies No Known Allergies Results Component Value Reference Range Notes Urinalysis - Inhouse Reviewed date:04/08/2025 03:39:05 PM Interpretation: Performing Lab: Notes/Report: Color/Clarity Yellow/Cloudy Leuk 3+ Nitrite Pos Urobili 3.2 Protein 2+ pH 6.0 Blood 2+ Sp. Gr. 1.020 Ketone Neg Bili Neg Gluc Neg REASON FOR VISIT kidney infection Medications Medication SIG (Take, Route, Frequency, Duration) Notes Start Date End Date Status Bactrim DS 800-160 MG 1 tablet Orally tw ice a day; Duration: 7 days 04/08/2025 Active Lisinopril 20 MG 1 tab(s) orally once a day; Duration: 90 days Active Atorvastatin Calcium 40 MG 1 tab(s) oral ly once a day; Duration: 90 days Active dilTIAZem HCl ER 240 MG 1 cap(s) orally once a day; Duration: 90 days Active Vital Signs Weight 227.4 lbs 04/08/2025 Blood pressure systolic 150 mm Hg 04/08/20 25 Blood pressure diastolic 84 mm Hg 025 Heart Rate 110 /min 04/08/2025 Height 64 in 04/08/2025 BMI 39.03 kg/m2 04/08/2025 Encounters Encounter Location Date Provider Diagnosis [address] [address] [facility] [address] [place] [id number] 04/08/2025 Wilson Leahy Acute UTI N39.0 Assessments Encounter Date Diagnosis (ICD Code) Assessment Notes Treatment Notes Treatment Clinical Notes Section Notes 04/08/2025 Acute UTI (ICD-10 - N39.0) Plan Of Treatment Medication Medication Name Sig Start Date Stop Date Notes Bactrim DS 800-160 MG 1 tablet Orally tw ice a day; Duration: 7 days 04/08/2025 Next Appt Details Follow Up: via phone to repo rt progress, Reason: Provider Name:Wilson Womack ry, 07/14/2025 09:00:00 AM, [address], [address], [place], [place], [id number], Progress Notes * ELVI PHANDOB:[birth year] (64 yo F)Acc No.[id number]:04/08/2025 Progress Notes Patient: ELVI OHARA Provider: Jimmy Leahy M.D. :1960 A ge:64 Y S ex:Female Date:04/08/2025 Address:[address] [place], [place] [id number] Subjective: * Chief Complaints: * 1 . Kidney infection. * HPI: U rology: 64 year old female presents with c/o burning sensation P t complains of burning with urination for 3-4 days. Pt states that she also have urgency . * Medical History: H ypertension, Atrial fibrillation, 2017, uses Aspirin for anticoagulation, Hiatal Hernia, 08/2021, Fibroids, Kidney stones, Renal Cell Cancer, 25 pack year smoking history as of 2022, quit in 2012, Hyperlipidemia, Osteoarthritis, Breast cancer, right side, Dx: 2024, treated at [facility]. * Surgical History: P artial Nephrectomy , Incisional Hernia Repair , Colonoscopy . * Hospitalization/Major Diagno stic Procedure: D enies Past Hospitalization. * Family History: M other: diagnosed with Cancer, Hypertension. 2 brother(s) . 2 son(s) , 1 daughter(s) . .? * Social History: C URRENT TOBACCO USE: No . C affeine: yes, frequency: 1 daily. Alcohol: no. * Medications: T aking Atorvastatin Calcium 40 MG Tablet 1 tab(s) orally once a day , Taking Lisinopril 20 MG Tablet 1 tab(s) orally once a day , Taking dilTIAZem HCl ER 240 MG Capsule Extended Release 24 Hour 1 cap(s) orally once a day , Discontinued Macrobid 100 MG Capsule 1 capsule with food Orally every 12 hrs , Discontinued Aspirin 81 MG Tablet Delayed Release 1 tab(s) orally once a day , Medication List reviewed and reconciled with the patient * Allergies: N .K.D.A. Objective: * Vitals: W t: 227.4, Temp: 98.1, BP: 150/84, HR: 110, Nurse: brock, Ht: 64, BMI:39.03. * Examination: G eneral Examination: General Appearance: N AD, using a cane to assist with ambulation. H eart: R SR. L ungs: c lear to auscultation. Assessment: * Assessment: 1. A cute UTI - N39.0 (Primary) Plan: * Treatment: Value Reference Range C olor/Clarity Yellow/Cloudy * L euk 3+ * N itrite Pos * U robili 3.2 * P rotein 2+ * p H 6.0 * B lood 2+ * S p. Gr. 1.020 * K etone Neg * B broderick Neg * G soo Neg * Cathryn Gerardo 04/08/2025 11:56 :48 AM EST > Provider reviewed results while patient in office. * Follow Up: v ia phone to report progress * Images: Billing Information: * Visit Code: 56079 Office Visit, Est Pt., Level 2. * Procedure Codes: * Electronic signature of Ashley Leahy MD on 04/22/2025 at 04:54 AM EST Sign off status: Pending * Provider: Jimmy Leahy M.D. Date: 06/09/2024 Generated for Darnell smiley/Lexus/Malaitting on: 06/23/2024 04:54 AM EST History and Physical Notes * HPI (History of Present Illness) Category Sub-Category Detail Notes Category Not es Urology burning sensation Pt complains o f burning with urination for 3-4 days. Pt states that she also have urgency Examination Category Sub-Category Detail Notes Category Not es General Examination Heart: RSR Lungs: clear to auscultatio n General Appearance: NAD, using a cane to assist with ambulation
--- OUTSIDE RECORDS SUMMARY | 2025-04-13 09:45 | XMS_ITS | Encounter Summary ---
Author Organization [place] [address] Care Team Providers Care Power Plant Operations Manager Name Role Phone Idania Cobb RN Unavailable Maxx Khan MD Unavailable [phone] Obdulia Mazariegos RN Unavailable Unavailable Bhavesh Poole MD Unavailable Elena Buck Clerical Staff Unavailable Encounter Details Date Type Department Care Team (Latest Contact Info) Description 04/13/2025 9:45 AM EST - 04/13/2025 10:03 AM EST Hospital Encounter [place] [address] Invasive ductal carcinoma of breast, [...] Tablet Take 40 mg by mouth daily. BACTRIM DS 800-160 mg Oral Tablet 1 Tablet. 04/08/2025 DILT-XR 240 mg Oral Capsule,Degradab le Cnt [...] mouth daily. nalOXone (NARCAN) 4 mg/actuation Nasl [place], Non-AerosolIndic ations:Invasive ductal carcinoma of right breast, stage 4 (HCC) 0.1 mL by Nasal route as needed for Opioid Reversal. [place] the contents of one device (0.1mL) into [...] as needed for Pain. 12 Tablet 02/19/2025 documented as of this encounter Discharge Disposition Disposition Code Departure Means Destination Home or Self Care documented in this encounter Plan of Treatment Upcoming Encounters Date Type Department Care Team (Late st Contact Info) Description 05/01/2025 12:30 PM EST Appointment [facility] [place] [address] Maxx Khan MD [address] [place] [address] [place], [place] [id number] 05/04/2025 8:15 AM EST Appointment [facility] [place], [place] [id number] 05/04/2025 8:45 AM EST [facility]ment [facility] [place], [place] [id number] Maxx Khan MD [address] [facility] [place] [address] 05/04/2025 9:00 AM EST Appointment [facility] [place], [place] [id number] 05/28/2025 10:30 AM EST Appointment [facility] [address] [place], [place] [address] Maxx Khan MD [address] [facility] [place] [address] 06/26/2025 10:15 AM EST Appointment [facility] RAD ONC [place], [place] [id number] Consuelo Ugarte APRN [address] [facility] [facility] [place] [address] documented as of this encounter Goals Goal Patient Goal Type Associated Problems Recent Progress Patient-Stated? Author Breast [facility] Breast [facility] Yenni Funk, RN Note: Patient acknowledges understanding of new diagnosis, plan of care, available resources and how to contact Nurse Navigator with any future questions or concerns. documented as of this encounter Procedures Procedure Name Priority Date/Time Associated Diagnosis Comments CBC WITH DIFF STAT 04/13/2025 10:01 AM EST Invasive ductal carcinoma of breast, female, right (HCC) MAGNESIUM LEVEL STAT 04/13/2025 10:01 AM EST Invasive ductal carcinoma of breast, female, right (HCC) COMPREHENSIVE METABOLIC PANEL STAT 04/13/2025 10:01 AM EST Invasive ductal carcinoma of breast, female, right (HCC) documented in this encounter Results * (ABNORMAL) COMPREHENSIVE METABOLIC PANEL (04/13/2025 10:01 AM EST) Sodium 143 136 - 145 mmol/L 04/13/2025 10:31 AM [facility] Potassium 3.6 3.5 - 5.0 mmol/L 04/13/2025 10:31 AM [facility] Chloride 109(H) 98 - 107 mmol/L 04/13/2025 10:31 AM [facility] Total CO2 23 22 - 29 mmol/L 04/13/2025 10:31 AM [facility] Anion Gap 11 7 - 16 mmol/L 04/13/2025 10:31 AM [facility] Calcium 8.9 8.8 - 10.4 mg/dL 04/13/2025 10:31 AM [facility] Glucose Lvl 132(H) 70 - 99 mg/dL 04/13/2025 10:31 AM [facility] BUN 11 8 - 23 mg/dL 04/13/2025 10:31 AM [facility] Creatinine 0.61 0.51 - 1.30 mg/dL 04/13/2025 10:31 AM [facility] Albumin 3.5 3.2 - 4.6 gm/dL 04/13/2025 10:31 AM [facility] Total Protein 6.2(L) 6.4 - 8.3 gm/dL 04/13/2025 10:31 AM [facility] Bili Total 0.3 0.2 - 1.3 mg/dL 04/13/2025 10:31 AM [facility] ALT 32 <=41 U/L 04/13/2025 10:31 AM [facility] AST 24 <=40 U/L 04/13/2025 10:31 AM [facility] Alk Phos 110 36 - 123 U/L 04/13/2025 10:31 AM [facility] eGFR (CKD-EPIcr 2020) 99 >=60 mL/min/1.7 3 m2 04/13/2025 10:31 AM [facility] Comment:Estimated GFR was ca lculated using the CKD-EPIcr (2020) equation refit without race. The equation is recommended by the National Kidney Foundation - [place] [employer] of Nephrology Task Force. Blood VENOUS BLOOD / Unknown Port / Unknown 04/13/2025 10:01 AM EST 04/13/2025 10:05 AM EST us Maxx Khan MD CHEMISTRY ORDERABLES Final Res ult [place] [id number] * (ABNORMAL) CBC WITH DIFF (04/13/2025 10:01 AM EST) WBC 8.3 3.7 - 10.3 x10(3)/mc L 04/13/2025 10:09 AM [facility] RBC 3.49(L) 3.90 - 5.20 x10(6)/mc L 04/13/2025 10:09 AM [facility] Hgb 10.5(L) 11.2 - 15.7 g/dL 04/13/2025 10:09 AM [facility] Hct 31.2(L) 34.0 - 45.0 % 04/13/2025 10:09 AM [facility] MCV 89.4 80.0 - 100.0 fL 04/13/2025 10:09 AM [facility] MCH 30.1 26.0 - 34.0 pg 04/13/2025 10:09 AM [facility] MCHC 33.7 30.7 - 35.5 g/dL 04/13/2025 10:09 AM [facility] RDW 16.1(H) <=14.9 % 04/13/2025 10:09 AM [facility] Platelet 325 155 - 369 x10(3)/mc L 04/13/2025 10:09 AM [facility] MPV 8.2(L) 8.8 - 12.5 fL 04/13/2025 10:09 AM [facility] Neut # Prelim 6.3(H) 1.6 - 6.1 x10(3)/mc L 04/13/2025 10:09 AM [facility] Comment:Preliminary automate d absolute neutrophil count. Value may change if manual differential is indicated. Neut Percent 75.3 % 04/13/2025 10:09 AM [facility] Comment:Neutrophils equals s egs plus bands Imm Gran% 2.3 % 04/13/2025 10:09 AM [facility] Comment:Automated count of m etamyelocytes, myelocytes and promyelocytes. IG >1% represents a left shift and provides an early indication of an infection or inflammatory process. Lymph Percent 10.2 % 04/13/2025 10:09 AM [facility] [place] Percent 7.8 % 04/13/2025 10:09 AM [facility] Eos Percent 3.7 % 04/13/2025 10:09 AM [facility] Baso Percent 0.7 % 04/13/2025 10:09 AM [facility] Neut # 6.3(H) 1.6 - 6.1 x10(3)/mc L 04/13/2025 10:09 AM [facility] Comment:Neutrophils equals s egs plus bands IMMGRAN# 0.2(H) 0.0 - 0.1 x10(3)/mc L 04/13/2025 10:09 AM [facility] Comment:Automated count of m etamyelocytes, myelocytes and promyelocytes. An absolute IG <0.1 is reported as 0.0. Lymph # 0.9(L) 1.2 - 3.9 x10(3)/mc L 04/13/2025 10:09 AM [facility] [place] # 0.7 0.3 - 0.9 x10(3)/mc L 04/13/2025 10:09 AM [facility] Eos# 0.3 0.0 - 0.5 x10(3)/mc L 04/13/2025 10:09 AM [facility] Baso # 0.1 0.0 - 0.1 x10(3)/mc L 04/13/2025 10:09 AM EST [facility] Blood VENOUS BLOOD / Unknown Port / Unknown 04/13/2025 10:01 AM EST 04/13/2025 10:05 AM EST Maxx Khan MD HEMATOLOGY ORDERABLES Final Re sult Performing Organization Address City/[facility]/ZIP Co de Phone Number [facility] [address] [place] [address] * MAGNESIUM LEVEL (04/13/2025 10:01 AM EST) Magnesium 1.8 1.6 - 2.4 mg/dL 04/13/2025 10:31 AM EST [facility] Blood VENOUS BLOOD / Unknown Port / Unknown 04/13/2025 10:01 AM EST 04/13/2025 10:05 AM EST us Maxx Khan MD CHEMISTRY ORDERABLES Final Res ult Performing Organization Address City/[facility]/[place] [address] documented in this encounter Visit Diagnoses Diagnosis Invasive ductal carcinoma of breast, female, right (HCC)- Primary documented in this encounter Administered Medications Inactive Administered Medications - up to 1 most recent administrations Medication Order MAR Action Action Date Dose Rate Site sodium chloride 0.9 % sterile syringe 10 mL 10 mL, Intravenous, ONCE, 1 dose, On 04/13/25 at 1000, For initial access of Venous Access Device., Dx: 1. Invasive ductal carcinoma of breast, female, right (HCC)Indications:Invasive ductal carcinoma of breast, female, right (HCC) Given 04/13/2025 10:02 AM EST 10 mL documented in this encounter Orders Medications Ordered That Demetrio ht Not Have Been Administered Count Last Ordered Date First Ordered Date sodium chloride 0.9 % steril e syringe 10 mL 1 04/13/2025 documented in this encounter Care Teams Power Plant Operations Manager Relationship Specialty Start Date End Date Idania Cobb RN Oncology Nurse Navigator 01/22/25 Maxx Khan MD 1 [place] [address] Medical Oncologist Internal Medicine-Medical Oncology 02/18/25 Obdulia Mazariegos, RN Registered Nurse 02/18/25 Bhavesh Poole MD [address] [place] [address] Radiation Oncologist Radiology-Radiation Oncology 02/24/25 Elena Buck, Clerical Staff Financial Counselor 02/27/25 documented as of this encounter
--- OUTSIDE RECORDS SUMMARY | 2025-04-13 09:45 | XMS_ITS | Encounter Summary ---
Author Organization [place] [address] Care Team Providers Care Horse Shoer Name Role Phone Idania Cobb RN Unavailable Maxx Khan MD Unavailable [phone] Obdulia Mazariegos RN Unavailable Unavailable Bhavesh Poole MD Unavailable Elena Buck Clerical Staff Unavailable Encounter Details Date Type Department Care Team (Latest Contact Info) Description 04/13/2025 9:45 AM EST - 04/13/2025 10:03 AM EST Hospital Encounter [facility] [place] [address] Invasive ductal carcinoma of breast, [...] mouth daily. nalOXone (NARCAN) 4 mg/actuation Nasl [place], Non-AerosolIndic ations:Invasive ductal carcinoma of right breast, stage 4 (HCC) 0.1 mL by Nasal route as needed for Opioid Reversal. [place] the contents of one device (0.1mL) into [...] EST Appointment [facility] [place] [address] Maxx Khan MD [address] [place] [address] [place], [place] [id number] 05/04/2025 8:15 AM EST Appointment [facility] [place], [place] [id number] 05/04/2025 8:45 AM EST Appointment [facility] [place], [place] [phone] Maxx Khan MD [address] [place] [address] 05/04/2025 9:00 AM EST Appointment [facility] [place], [place] [id number] 05/28/2025 10:30 AM EST Appointment [facility] [address] [place], [place] [id number] Maxx Khan MD [address] [place] [address] 06/26/2025 10:15 AM EST Appointment [facility] RAD ONC [place], [place] [id number] Consuelo gUarte APRN [address] [place] [address] documented as of this encounter Goals Goal Patient Goal Type Associated Problems Recent Progress Patient-Stated? Author Breast [facility] Breast [facility] Yenni Funk, RN Note: Patient acknowledges understanding [...] 136 - 145 mmol/L 04/13/2025 10:31 AM [facility] Potassium 3.6 3.5 - 5.0 mmol/L 04/13/2025 10:31 AM [facility] Chloride 109(H) 98 - 107 mmol/L 04/13/2025 10:31 AM [facility] Total CO2 23 22 - 29 mmol/L 04/13/2025 10:31 AM [facility] Anion Gap 11 7 - 16 mmol/L 04/13/2025 10:31 AM [facility] Calcium 8.9 8.8 - 10.4 mg/dL 04/13/2025 10:31 AM [facility] Glucose Lvl 132(H) 70 - 99 mg/dL 04/13/2025 10:31 AM [facility] BUN 11 8 - 23 mg/dL 04/13/2025 10:31 AM [facility] Creatinine 0.61 0.51 - 1.30 mg/dL 04/13/2025 10:31 AM [facility] Albumin 3.5 3.2 - 4.6 gm/dL 04/13/2025 10:31 AM [facility] Total Protein 6.2(L) 6.4 - 8.3 gm/dL 04/13/2025 10:31 AM [facility] Bili Total 0.3 0.2 - 1.3 mg/dL 04/13/2025 10:31 AM [facility] ALT 32 <=41 U/L 04/13/2025 10:31 AM [facility] AST 24 <=40 U/L 04/13/2025 10:31 AM [facility] Alk Phos 110 36 - 123 U/L 04/13/2025 10:31 AM [facility] eGFR (CKD-EPIcr 2020) 99 >=60 mL/min/1.7 3 m2 04/13/2025 10:31 AM [facility] Comment:Estimated GFR was ca lculated using the CKD-EPIcr (2020) equation refit without race. The equation is recommended by the National Kidney Foundation - [place] [employer] of Nephrology Task Force. Blood VENOUS BLOOD / Unknown Port / Unknown 04/13/2025 10:01 AM EST 04/13/2025 10:05 AM EST us Maxx Khan MD CHEMISTRY ORDERABLES Final Res ult [place] [id number] * (ABNORMAL) CBC WITH DIFF (04/13/2025 10:01 AM EST) WBC 8.3 3.7 - 10.3 x10(3)/mc L 04/13/2025 10:09 AM [facility] RBC 3.49(L) 3.90 - 5.20 x10(6)/mc L 04/13/2025 10:09 AM [facility] Hgb 10.5(L) 11.2 - 15.7 g/dL 04/13/2025 10:09 AM [facility] Hct 31.2(L) 34.0 - 45.0 % 04/13/2025 10:09 AM [facility] MCV 89.4 80.0 - 100.0 fL 04/13/2025 10:09 AM [facility] MCH 30.1 26.0 - 34.0 pg 04/13/2025 10:09 AM [facility] MCHC 33.7 30.7 - 35.5 g/dL 04/13/2025 10:09 AM [facility] RDW 16.1(H) <=14.9 % 04/13/2025 10:09 AM [facility] Platelet 325 155 - 369 x10(3)/mc L 04/13/2025 10:09 AM [facility] MPV 8.2(L) 8.8 - 12.5 fL 04/13/2025 10:09 AM [facility] Neut # Prelim 6.3(H) 1.6 - 6.1 x10(3)/mc L 04/13/2025 10:09 AM [facility] Comment:Preliminary automate d absolute neutrophil count. Value may change if manual differential is indicated. Neut Percent 75.3 % 04/13/2025 10:09 AM [facility] Comment:Neutrophils equals s egs plus bands Imm Gran% 2.3 % 04/13/2025 10:09 AM [facility] Comment:Automated count of m etamyelocytes, myelocytes and promyelocytes. IG >1% represents a left shift and provides an early indication of an infection or inflammatory process. Lymph Percent 10.2 % 04/13/2025 10:09 AM [facility] [place] Percent 7.8 % 04/13/2025 10:09 AM [facility] Eos Percent 3.7 % 04/13/2025 10:09 AM [facility] Baso Percent 0.7 % 04/13/2025 10:09 AM [facility] Neut # 6.3(H) 1.6 - 6.1 x10(3)/mc L 04/13/2025 10:09 AM [facility] Comment:Neutrophils equals s egs plus bands IMMGRAN# 0.2(H) 0.0 - 0.1 x10(3)/mc L 04/13/2025 10:09 AM [facility] Comment:Automated count of m etamyelocytes, myelocytes and promyelocytes. An absolute IG <0.1 is reported as 0.0. Lymph # 0.9(L) 1.2 - 3.9 x10(3)/mc L 04/13/2025 10:09 AM [facility] [place] # 0.7 0.3 - 0.9 x10(3)/mc L 04/13/2025 10:09 AM [facility] Eos# 0.3 0.0 - 0.5 x10(3)/mc L 04/13/2025 10:09 AM [facility] Baso # 0.1 0.0 - 0.1 x10(3)/mc L 04/13/2025 10:09 AM EST [facility] Blood VENOUS BLOOD / Unknown Port / Unknown 04/13/2025 10:01 AM EST 04/13/2025 10:05 AM EST Maxx Khan MD HEMATOLOGY ORDERABLES Final Re sult Performing Organization Address City/[facility]/ZIP Co de Phone Number [facility] [address] [place] [address] * MAGNESIUM LEVEL (04/13/2025 10:01 AM EST) Magnesium 1.8 1.6 - 2.4 mg/dL 04/13/2025 10:31 AM EST [facility] Blood VENOUS BLOOD / Unknown Port / Unknown 04/13/2025 10:01 AM EST 04/13/2025 10:05 AM EST us Maxx Khan MD CHEMISTRY ORDERABLES Final Res ult Performing Organization Address City/[facility]/[place] [address] documented in this encounter Visit Diagnoses Diagnosis [...] 04/13/2025 documented in this encounter Care Teams Horse Shoer Relationship Specialty Start Date End Date Idania Cobb RN Oncology Nurse Navigator 01/22/25 Maxx Khan MD 1 [place] [address] Medical Oncologist Internal Medicine-Medical Oncology 02/18/25 Obdulia Mazariegos, RN Registered Nurse 02/18/25 Bhavesh Poole MD 1 [place] [address] Radiation Oncologist Radiology-Radiation Oncology 02/24/25 Elena Buck, Clerical Staff Financial Counselor 02/27/25 documented as of this encounter
--- OUTSIDE RECORDS SUMMARY | 2025-04-13 10:04 | XMS_ITS | Encounter Summary ---
Author [place] [address] Care Team Providers Care Lanolin Plant Operator Name Role Phone Idania Cobb RN Unavailable Maxx Khan MD Unavailable [phone] Obdulia Mazariegos RN Unavailable Unavailable Bhavesh Poole MD Unavailable Elena Buck Clerical Staff Unavailable Reason for Referral * MRI/CAT Scan (Routine) - Pending Review Specialty Diagnoses / Procedures Referred By Contac t Referred To Contact Radiology Diagnoses Invasive ductal carcinoma of right breast, stage 4 (HCC) Procedures PET CT SKULL BASE TO MID THIGH Maxx Khan MD [address] [place] [address] [place] [address] Phone: tel: fax: Referral ID Status Reason Start Date Expiration Date V isits Requested Visits Authorized [id number] Pending Review 04/13/2025 04/13/2026 5 5 Reason for Visit * Reason Comments Follow-up Breast Cancer Chemotherapy Immunotherapy Kanjinti Diarrhea Shortness of Breath Encounter Details Date Type Department Care Team (Latest Contact Info) Description 04/13/2025 10:04 AM EST - 04/13/2025 10:29 AM EST Hospital Encounter [facility] [place] [address] Maxx Khan MD [address] [place] [address] Invasive ductal carcinoma of right breast, stage 4 (HCC) (Primary Dx); Encounter for chemotherapy management; Encounter for antineoplastic chemotherapy; Nosebleed; Invasive ductal carcinoma of breast, female, right [...] Sign Reading Time Taken Comments Blood Pressure 149/72 04/13/2025 10:51 AM EST Pulse 92 04/13/2025 10:51 AM EST Temperature 37 C (98.6 F) 04/13/2025 10:51 AM EST Respiratory Rate 20 04/13/2025 10:5 1 AM EST Oxygen Saturation 96% 04/13/2025 10: 51 AM EST Inhaled Oxygen Concentration - - Weight 103.1 kg (227 lb 6.4 oz) 025 10:51 AM EST Height 162.6 cm (5' 4 ) 04/13/2025 10:5 1 AM EST Body Mass Index 39.03 04/13/2025 10:51 AM EST documented in this encounter Medications [...] mouth daily. nalOXone (NARCAN) 4 mg/actuation Nasl [place], Non-AerosolIndic ations:Invasive ductal carcinoma of right breast, stage 4 (HCC) 0.1 mL by Nasal route as needed for Opioid Reversal. [place] the contents of one device (0.1mL) into [...] Tablet 02/19/2025 documented as of this encounter Ordered Prescriptions Prescription Sig Dispense Quantity Refills Last Filled Start Date End Date dexAMETHasone (DECADRON) 4 mg Oral TabletIndications: Invasive ductal carcinoma of breast, female, right (HCC) Take 2 tabs (8 mg) by mouth twice daily for 5 doses (start day before chemo and skip morning of treatment). 28 Tablet 1 04/13/2025 oxymetazoline 0.025 % Nasl [place], Non-AerosolIndicat ions:Nosebleed 1 [place] by Nasal route 2 times daily as needed. 30 mL 04/13/2025 documented in this encounter Discharge Disposition Disposition Code Departure Means Destination Home or Self Care documented in this encounter Progress Notes * Maxx Khan MD - 04/13/2025 10:15 AM EST Images from the original note were not included. ONCOLOGY FOLLOW-UP: Primary Oncologist: Maxx Khan MD ONCOLOGY PROBLEM LIST: Oncology History Renal cell cancer, left (HCC) 2017 Initial Diagnosis - Renal cell cancer, left (HCC) - Reports partial nephrectomy 2017 at [place] - States Right Kidney is d/t multiple [...] Surgical Consult with Dr. Jacinto Genetics Negative [employer] [facility] Hereditary Cancer Panel (70 genes) CURRENT TREATMENT: C3D1 THP INTERVAL HISTORY: Ms. Man is a 64 y.o. female who is here for follow up. Patient states that since last visit had fatigue starting day 3. Explosive diarrhea 3-4x/day. Imodium. Lomotil helps. Appetite down. 3 pounds. Nosebleeds. Breast is improving and back pain improving. Nausea controlled. Sob at times. Dry cough. Reviewed past medical, surgical, family, and social histories. PHYSICAL EXAM: Vitals: 04/13/25 1051 BP: 149/72 Pulse: 92 Resp: 20 Temp: 98.6 ??F (37 ??C) SpO2: 96% Wt Readings from Last 3 Encounters: 04/13/25 227 lb 6.4 oz (103.1 kg) 03/23/25 230 lb 4.8 oz (104.5 kg) 03/20/25 229 lb 6.4 oz (104.1 kg) GENERAL APPEARANCE: Alert & Cooperative, Oriented X 3 LABS: CBC: Lab Results Component Value Date/Time WBC 8.3 04/13/2025 10:01 AM RBC 3.49 (L) 04/13/2025 10:01 AM PLT 325 04/13/2025 10:01 AM CMP: Lab Results Component Value Date NA 143 04/13/2025 K 3.6 04/13/2025 CL 109 (H) 04/13/2025 CO2 23 04/13/2025 ANIONGAP 11 04/13/2025 CALCIUM 8.9 04/13/2025 GLU 132 (H) 04/13/2025 BUN 11 04/13/2025 CREATININE 0.61 04/13/2025 ALBUMIN 3.5 04/13/2025 PROT 6.2 (L) 04/13/2025 LABBILI 0.3 04/13/2025 ALT 32 04/13/2025 AST 24 04/13/2025 IMAGING/Testing All relevant images were reviewed in detail with the patient. All questions were addressed and answered in great detail. No results found. 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 MRI showing level I [...] slower infusion rate and pepcid but tolerated ok, nausea, diarrhea, neuropathy G1, nosebleeds. 04/13/25 update: -Side effects: diarrhea G2, nausea, sob with exertion- possibly anemia but discussed risk of PE as well and if worsening symptoms to get CTPA and discussed red flag symptoms, neuropathy G1 intermittent toes at night -Labs: anemia -Reviewed echo 02/25/25 which was normal, next due in 04/2025 -Ok to proceed with C3D1 of THP with G-CSF; plan for PATINA style regimen for maintenance -Will order PET scan for comparison after 3 cycles of tx to be done prior to C4 -Will check about prescription for afrin as pharmacy did not receive Follow up in 3 weeks A total of 35 minutes of the encounter was spent in performing the following complex tasks: 1) Reviewing medical records in [facility] and if applicable outside records as [...] Khan MD Hematology/Oncology documented in this encounter Miscellaneous Notes * Addendum Note - Obdulia Mazariegos RN - 04/13/2025 10:15 AM ESTEncounter addended by: Obdulia Mazariegos, RN on: 04/13/2025 1:37 PM Actions taken: Flowsheet accepted * Addendum Note - Obdulia Mazariegos RN - 04/13/2025 10:15 AM Joannaer addended by: Obdulia Mazariegos RN on: 04/13/2025 2:41 PM Actions taken: Visit diagnoses modified, Order list changed, Diagnosis association updated documented in this encounter Plan of Treatment Upcoming Encounters Date Type Department Care Team (Late st Contact Info) Description 05/01/2025 12:30 PM EST Appointment [facility] [address] [place] [id number] Maxx Khan MD [address] [place] [address] [place] [address] 05/04/2025 8:15 AM EST Appointment [place] [address] 05/04/2025 8:45 AM EST Appointment [facility] [place], [place] [id number] Maxx Khan MD [address] [place] [address] [address] [place] [id number] 05/04/2025 9:00 AM EST Appointment [facility] [place], [place] [id number] 05/28/2025 10:30 AM EST Appointment [facility] [place] [address] Maxx Khan MD [address] [place] [address] [place] [address] 06/26/2025 10:15 AM EST Appointment [facility] [place] [address] Consuelo Ugarte APRN [address] [facility] [place] [address] Scheduled Orders Name Type Priority Associated Diagnoses Orde r Schedule PET CT SKULL BASE TO MID THIGH Imaging Routine Invasive ductal carcinoma of right breast, stage 4 (HCC) 1 Occurrences starting 04/13/2025 until 04/12/2026 documented as of this encounter Goals Goal Patient Goal Type Associated Problems Recent Progress Patient-Stated? Author [facility] Yenni Funk RN Note: Patient acknowledges understanding of new diagnosis, plan of care, available resources and how to contact Nurse Navigator with any future questions or concerns. documented as of this encounter Visit Diagnoses Diagnosis Invasive ductal carcinoma of right breast, stage 4 (HCC)- Primary Encounter for chemotherapy management Encounter for antineoplastic chemotherapy Nosebleed Epistaxis Invasive ductal carcinoma of breast, female, right (HCC) documented in this encounter Discontinued Medications Medication Sig Discontinue Reason Start Date End Da te oxymetazoline 0.025 % Nasl [place], Non-AerosolIndications:N osebleed 1 [place] by Nasal route 2 times daily as needed. Reorder 03/24/2025 04/13/2025 dexAMETHasone (DECADRON) 4 mg Oral TabletIndications:Invasi ve ductal carcinoma of breast, female, right (HCC) Take 2 tabs (8 mg) by mouth twice daily for 5 doses (start day before chemo and skip morning of treatment). Reorder 02/18/2025 04/13/2025 documented as of this encounter Historical Medications * This list may reflect changes made after this encounter. BACTRIM DS 800-160 mg Oral Tablet 1 Tablet. 04/08/2025 added in this encounter Care Teams Lanolin Plant Operator Relationship Specialty Start Date End Date Idania Cobb RN Oncology Nurse Navigator 01/22/25 Maxx Khan MD [address] [place] [address] Medical Oncologist Internal Medicine-Medical Oncology 02/18/25 Obdulia Mazariegos, RN Registered Nurse 02/18/25 Bhavesh Poole MD [address] [place] [address] Radiation Oncologist Radiology-Radiation Oncology 02/24/25 Elena Buck, Clerical Staff Financial Counselor 02/27/25 documented as of this encounter
--- OUTSIDE RECORDS SUMMARY | 2025-04-13 10:04 | XMS_ITS | Encounter Summary ---
Author Organization [place] [address] Care Team Providers Care Resident Medical Officer Name Role Phone Idania Cobb RN Unavailable Maxx Khan MD Unavailable [phone] Obdulia Mazariegos RN Unavailable Unavailable Bhavesh Poole MD Unavailable Elena Buck Clerical Staff Unavailable Reason for Referral * MRI/CAT Scan (Routine) - Pending Review Specialty Diagnoses / Procedures Referred By Contac t Referred To Contact Radiology Diagnoses Invasive ductal carcinoma of right breast, stage 4 (HCC) Procedures PET CT SKULL BASE TO MID THIGH Maxx Khan MD [address] [place] [address] [place] [address] Phone: tel: fax: Referral ID Status Reason Start Date Expiration Date V isits Requested Visits Authorized [id number] Pending Review 04/13/2025 04/13/2026 5 5 Reason for Visit * Reason Comments Follow-up Breast Cancer Chemotherapy Immunotherapy Kanjinti Diarrhea Shortness of Breath Encounter Details Date Type Department Care Team (Latest Contact Info) Description 04/13/2025 10:04 AM EST - 04/13/2025 10:29 AM EST Hospital Encounter [facility] [place] [address] Maxx Khan MD [address] [facility] [place] [address] Invasive ductal carcinoma of right breast, stage [...] mouth daily. nalOXone (NARCAN) 4 mg/actuation Nasl [place], Non-AerosolIndic ations:Invasive ductal carcinoma of right breast, stage 4 (HCC) 0.1 mL by Nasal route as needed for Opioid Reversal. [place] the contents of one device (0.1mL) into [...] Tablet 1 04/13/2025 oxymetazoline 0.025 % Nasl [place], Non-AerosolIndicat ions:Nosebleed 1 [place] by Nasal route 2 times daily as [...] (HCC) - Reports partial nephrectomy 2017 at [place] - States Right Kidney is d/t multiple [...] Surgical Consult with Dr. 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 MRI showing level I [...] complex tasks: 1) Reviewing medical records in [facility] and if applicable outside records as [...] Info) Description 05/01/2025 12:30 PM EST Appointment [facility] CT [place] [id number] Maxx Khan MD [address] [place] [address] [place] [address] 05/04/2025 8:15 AM EST Appointment [place] [address] 05/04/2025 8:45 AM EST Appointment [facility] [place], [place] [id number] Maxx Khan MD [address] [place] [address] [address] [place] [id number] 05/04/2025 9:00 AM EST Appointment [facility] [place], [place] [id number] 05/28/2025 10:30 AM EST Appointment [facility] [place] [address] Maxx Khan MD [address] [place] [address] [place] [address] 06/26/2025 10:15 AM EST Appointment [facility] [place] [address] Consuelo Ugarte APRN [address] [facility] [place] [id number] Scheduled Orders Name Type Priority Associated Diagnoses Orde r Schedule PET CT SKULL BASE TO MID THIGH Imaging Routine Invasive ductal carcinoma of right breast, stage 4 (HCC) 1 Occurrences starting 04/13/2025 until 04/12/2026 documented as of this encounter Goals Goal Patient Goal Type Associated Problems Recent Progress Patient-Stated? Author [facility] Yenni Funk RN Note: Patient [...] End Da te oxymetazoline 0.025 % Nasl [place], Non-AerosolIndications:N osebleed 1 [place] by Nasal route 2 times daily as [...] 04/08/2025 added in this encounter Care Teams Resident Medical Officer Relationship Specialty Start Date End Date Idania Cobb RN Oncology Nurse Navigator 01/22/25 Maxx Khan MD 1 [place] [address] Medical Oncologist Internal Medicine-Medical Oncology 02/18/25 Obdulia Mazariegos, RN Registered Nurse 02/18/25 Bhavesh Poole MD 1 [place] [address] Radiation Oncologist Radiology-Radiation Oncology 02/24/25 Elena Buck, Clerical Staff Financial Counselor 02/27/25 documented as of this encounter
--- OUTSIDE RECORDS SUMMARY | 2025-04-13 10:30 | XMS_ITS | Encounter Summary ---
[place] [address] Care Team Providers Care Front Window Cashier Name Role Phone Idania Cobb RN Unavailable Maxx Khan MD Unavailable [phone] Obdulia Mazariegos RN Unavailable Unavailable Bhavesh Poole MD Unavailable Elena Buck Clerical Staff Unavailable Reason for Visit * Oncology Medication Prior Authorization (Routine) - Authorization Not Needed Specialty Diagnoses / Procedures Referred By Contac t Referred To Contact Diagnoses Invasive ductal carcinoma of breast, female, right (HCC) Procedures ONCOLOGY MEDICATION AUTHORIZATION Maxx Khan MD [address] [place] [address] Phone: tel: fax: Maxx Khan MD [address] [place] [address] Phone: tel: fax: Referral ID Status Reason Start Date Expiration Date Visits Requested Visits Authorized [id number] Authorization Not Needed 03/01/2025 03/04/2026 1 20 Encounter Details Date Type Department Care Team (Latest Contact Info) Description 04/13/2025 10:30 AM EST - 04/13/2025 11:59 PM EST Hospital Encounter [place] [address] Ankush Jean RN Invasive ductal carcinoma of breast, female, right [...] Sign Reading Time Taken Comments Blood Pressure 148/73 04/13/2025 2:49 PM EST Pulse 84 04/13/2025 2:49 PM EST Temperature - - Respiratory Rate 16 04/13/2025 2:49 PM EST Oxygen Saturation 95% 04/13/2025 2:07 PM EST Inhaled Oxygen Concentration - - Weight - - Height - - Body Mass Index - - documented in this encounter Medications at Time of Discharge aspirin 81 mg Oral Tablet, Delayed Release (E.C.) Take 81 mg by mouth daily. atorvastatin (LIPITOR) 40 mg Oral Tablet Take 40 mg by mouth daily. BACTRIM DS 800-160 mg Oral Tablet 1 Tablet. 04/08/2025 dexAMETHasone (DECADRON) 4 mg Oral TabletIndication s:Invasive ductal carcinoma of breast, female, right (HCC) Take 2 tabs (8 mg) by mouth twice daily for 5 doses (start day before chemo and skip morning of treatment). 28 Tablet 1 04/13/2025 DILT-XR 240 mg Oral Capsule,Degradab le Cnt [...] mouth daily. nalOXone (NARCAN) 4 mg/actuation Nasl [place], Non-AerosolIndic ations:Invasive ductal carcinoma of right breast, stage 4 (HCC) 0.1 mL by Nasal route as needed for Opioid Reversal. [place] the contents of one device (0.1mL) into one nostril upon signs of opioid overdose. Call 911. May repeat dose in other nostril if no response within 2-3 minutes. 1 Each 02/18/2025 ondansetron (ZOFRAN) 4 mg Oral TabletIndication s:Invasive ductal carcinoma of breast, female, right (HCC),Chemothera py-induced nausea Take 1 Tablet by mouth every 6 hours as needed for Nausea. 30 Tablet 1 03/09/2025 oxymetazoline 0.025 % Nasl [place], Non-AerosolIndic ations:Nosebleed 1 [place] by Nasal route 2 times daily as needed. 30 mL 04/13/2025 prochlorperazine (COMPAZINE) 10 mg Oral TabletIndication s:Invasive [...] Miscellaneous Notes * Patient Instructions - Ankush Jean RN - 04/13/2025 10:30 AM EST [facility] Discharge Instructions Thank you for entrusting [...] heparin flush 100 unit/mL injection 500 Units famotidine (PEPCID) injection 20 mg diphenhydrAMINE (BENADRYL) injection 25 mg ondansetron (ZOFRAN) injection 8 mg dexAMETHasone (DECADRON) tablet 12 mg prochlorperazine edisylate (COMPAZINE) injection 10 mg pertuzumab (PERJETA) 420 mg in sodium chloride 0.9 % 250 mL chemo infusion trastuzumab-anns (KANJINTI) 650 mg in sodium chloride 0.9 % 250 mL chemo infusion DOCEtaxeL (TAXOTERE) 160 mg in sodium chloride 0.9 % 250 mL chemo infusion pegfilgrastim-cbqv (UDENYCA) on-body injector 6 mg Reviewed [...] infection DON'T WAIT, PLEASE CALL US FIRST [phone]. [FOR URGENT ISSUES PLEASE DO NOT LEAVE A MESSAGE, FOLLOW PROMPTS TO THE DOCTOR CYLINDER DEVALVER] For Gynecology / Oncology call : [phone] Our hours of operation are Sunday - Sunday 8:00 AM - 4:30 PM. [facility] [address] [place] [address] [phone] [address] Results for orders placed or performed during the hospital encounter of 04/13/25 MAGNESIUM LEVEL Result Value Ref Range Magnesium 1.8 1.6 - 2.4 mg/dL CBC WITH DIFF Result Value Ref Range WBC 8.3 3.7 - 10.3 x10(3)/mcL RBC 3.49 (L) 3.90 - 5.20 x10(6)/mcL Hgb 10.5 (L) 11.2 - 15.7 g/dL Hct 31.2 (L) 34.0 - 45.0 % MCV 89.4 80.0 - 100.0 fL MCH 30.1 26.0 - 34.0 pg MCHC 33.7 30.7 - 35.5 g/dL RDW 16.1 (H) <=14.9 % Platelet 325 155 - 369 x10(3)/mcL MPV 8.2 (L) 8.8 - 12.5 fL Neut # Prelim 6.3 (H) 1.6 - 6.1 x10(3)/mcL Neut Percent 75.3 % Imm Gran% 2.3 % Lymph Percent 10.2 % [place] Percent 7.8 % Eos Percent 3.7 % Baso Percent 0.7 % Neut # 6.3 (H) 1.6 - 6.1 x10(3)/mcL IMMGRAN# 0.2 (H) 0.0 - 0.1 x10(3)/mcL Lymph # 0.9 (L) 1.2 - 3.9 x10(3)/mcL [place] # 0.7 0.3 - 0.9 x10(3)/mcL Eos# 0.3 0.0 - 0.5 x10(3)/mcL Baso # 0.1 0.0 - 0.1 x10(3)/mcL COMPREHENSIVE METABOLIC PANEL Result Value Ref Range Sodium 143 136 - 145 mmol/L Potassium 3.6 3.5 - 5.0 mmol/L Chloride 109 (H) 98 - 107 mmol/L Total CO2 23 22 - 29 mmol/L Anion Gap 11 7 - 16 mmol/L Calcium 8.9 8.8 - 10.4 mg/dL Glucose Lvl 132 (H) 70 - 99 mg/dL BUN 11 8 - 23 mg/dL Creatinine 0.61 0.51 - 1.30 mg/dL Albumin 3.5 3.2 - 4.6 gm/dL Total Protein 6.2 (L) 6.4 - 8.3 gm/dL Bili Total 0.3 0.2 - 1.3 mg/dL ALT 32 <=41 U/L AST 24 <=40 U/L Alk Phos 110 36 - 123 U/L eGFR (CKD-EPIcr 2020) 99 >=60 mL/min/1.73 m2 documented in this encounter Plan of Treatment Upcoming Encounters Date Type Department Care Team (Late st Contact Info) Description 05/01/2025 12:30 PM EST Appointment [facility] [place] [address] Maxx Khan MD 1 [facility] [place] [address] 05/04/2025 8:15 AM EST Appointment [place] [address] 05/04/2025 8:45 AM EST [facility]ment [facility] [place] [address] Maxx Khan MD 1 [facility] [place] [address] 05/04/2025 9:00 AM EST Appointment [facility] [place], [place] [id number] 05/28/2025 10:30 AM EST Appointment [facility] [place] [address] Maxx Khan MD [address] [place] [address] [place] [address] 06/26/2025 10:15 AM EST Appointment [facility] [place] [address] Consuelo Ugarte APRN [address] [place] [address] [place] [address] documented as of this encounter Goals Goal [...] Intravenous, at 30 mL/hr, CONTINUOUS, Starting on Sun04/13/25 at 1145, Until Sun04/14/25 at 0414, 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 Invasive ductal carcinoma of breast, female, right (HCC)Indications:Invas caty ductal carcinoma of breast, female, right (HCC) IV Restarted 04/13/2025 12:01 PM EST 30 mL/hr dexAMETHasone (DECADRON) tablet 12 mg 12 mg, Oral, ONCE, 1 dose, On Sun04/13/25 at 1145, Dx: 1. Invasive ductal carcinoma of breast, female, right (HCC)Indications:Invas caty ductal carcinoma of breast, female, right (HCC) Given 04/13/2025 11:54 AM EST 12 mg diphenhydrAMINE (BENADRYL) injection 25 mg 25 mg, Intravenous, ONCE, 1 dose, On Sun04/13/25 at 1145, Dx: 1. Invasive ductal carcinoma of breast, female, right (HCC)Indications:Invas caty ductal carcinoma of breast, female, right (HCC) Given 04/13/2025 11:58 AM EST 25 mg DOCEtaxeL (TAXOTERE) 160 mg in sodium chloride 0.9 % 250 mL chemo infusion 160 mg (rounded from 158.25 mg = 75 mg/m2 2.11 m2 Treatment Plan BSA from Recorded weight), Intravenous, at 50-300 mL/hr, ONCE, 1 dose, On Sun04/13/25 at 1345, Follow Chemotherapy Precautions (Caution - Irritant) Infuse 50 mL/hr x 15 min, 100 mL/hr x 15 min, to a max of 200 mL/hr. Vitals before each rate increase. , Dx: 1. Invasive ductal carcinoma of breast, female, right (HCC)Indications:Invas caty ductal carcinoma of breast, female, right (HCC) Rate/Dose Change 04/13/2025 2:06 PM EST 300 mL/hr famotidine (PEPCID) injection 20 mg 20 mg, Intravenous, ONCE, 1 dose, On Sun04/13/25 at 1145, Dx: 1. Invasive ductal carcinoma of breast, female, right (HCC)Indications:Invas caty ductal carcinoma of breast, female, right (HCC) Given 04/13/2025 11:57 AM EST 20 mg heparin flush 100 unit/mL injection 500 Units 500 Units, Intravenous, PRN, Starting on Sun04/13/25 at 1130, Until Sun04/14/25 at 0414, Line Care, For Venous Access Device care and maintenance., Dx: 1. Invasive ductal carcinoma of breast, female, right (HCC)Indications:Invas caty ductal carcinoma of breast, female, right (HCC) Given 04/13/2025 2:50 PM EST 500 Units ondansetron (ZOFRAN) injection 8 mg 8 mg, Intravenous, ONCE, 1 dose, On Sun04/13/25 at 1145, Dx: 1. Invasive ductal carcinoma of breast, female, right (HCC)Indications:Invas cayt ductal carcinoma of breast, female, right (HCC) Given 04/13/2025 11:55 AM EST 8 mg pegfilgrastim-cbqv (UDENYCA) on-body injector 6 mg 6 mg, Subcutaneous, ONCE, 1 dose, On Sun04/13/25 at 1145, The OnBody injector is NOT approved to [...] of breast, female, right (HCC) Given 04/13/2025 2:58 PM EST 6 mg Right Arm pertuzumab (PERJETA) 420 mg in sodium chloride 0.9 % 250 mL chemo infusion 420 mg, Intravenous, at 578 mL/hr, ONCE, 1 dose, On Sun04/13/25 at 1215, Incompatible with D5W., Dx: 1. Invasive ductal carcinoma of breast, female, right (HCC)Indications:Invas caty ductal carcinoma of breast, female, right (HCC) IV Started 04/13/2025 12:15 PM EST 420 mg 578 mL/hr sodium chloride 0.9% syringe 10 mL 10 mL, Intravenous, PRN, Starting on Sun04/13/25 at 1130, Until Sun04/14/25 at 0414, Line Care, For Venous Access Device care and maintenance., Dx: 1. Invasive ductal carcinoma of breast, female, right (HCC)Indications:Invas caty ductal carcinoma of breast, female, right (HCC) Given 04/13/2025 2:50 PM EST 10 mL trastuzumab-anns (KANJINTI) 650 mg in sodium chloride 0.9 % 250 mL chemo infusion 650 mg (rounded from 648 mg = 6 mg/kg 108 kg Treatment plan Recorded weight), Intravenous, ONCE, 1 dose, On Sun04/13/25 at 1315, Administer over 30 Minutes, NOT compatible with D5W. Initial infusion over 90 minutes; Subsequent doses may be infused over 30 minutes if previous infusions well-tolerated, Dx: 1. Invasive ductal carcinoma of breast, female, right (HCC)Indications:Invas caty ductal carcinoma of breast, female, right (HCC) IV Started 04/13/2025 12:20 PM EST 650 mg 612 mL/hr documented in this encounter Orders Medications Ordered That Demetrio ht Not Have Been Administered Count Last Ordered Date First Ordered Date prochlorperazine edisylate ( COMPAZINE) injection 10 mg 1 04/13/2025 documented in this encounter Care Teams Front Window Cashier Relationship Specialty Start Date End Date Idania Cobb RN Oncology Nurse Navigator 01/22/25 Maxx Khan MD 1 [place] [address] Medical Oncologist Internal Medicine-Medical Oncology 02/18/25 Obdulia Mazariegos, RN Registered Nurse 02/18/25 Bhavesh Poole MD 1 [place] [address] Radiation Oncologist Radiology-Radiation Oncology 02/24/25 Elena Buck, Clerical Staff Financial Counselor 02/27/25 documented as of this encounter
--- OUTSIDE RECORDS SUMMARY | 2025-04-13 10:30 | XMS_ITS | Encounter Summary ---
Author Organization [place] [address] Care Team Providers Care Flare Man Name Role Phone Idania Cobb RN Unavailable Maxx Khan MD Unavailable [phone] Obdulia Mazariegos RN Unavailable Unavailable Bhavesh Poole MD Unavailable Elena Buck Clerical Staff Unavailable Reason for Visit * Oncology Medication Prior Authorization (Routine) - Authorization Not Needed Specialty Diagnoses / Procedures Referred By Contac t Referred To Contact Diagnoses Invasive ductal carcinoma of breast, female, right (HCC) Procedures ONCOLOGY MEDICATION AUTHORIZATION Maxx Khan MD [address] [place] [address] Phone: tel: fax: Maxx Khan MD [address] [place] [address] Phone: tel: fax: Referral ID Status Reason Start Date Expiration Date Visits Requested Visits Authorized [id number] Authorization Not Needed 03/01/2025 03/04/2026 1 20 Encounter Details Date Type Department Care Team (Latest Contact Info) Description 04/13/2025 10:30 AM EST - 04/13/2025 11:59 PM EST Hospital Encounter [place] [address] Ankush Jean RN Invasive ductal carcinoma of [...] mouth daily. nalOXone (NARCAN) 4 mg/actuation Nasl [place], Non-AerosolIndic ations:Invasive ductal carcinoma of right breast, stage 4 (HCC) 0.1 mL by Nasal route as needed for Opioid Reversal. [place] the contents of one device (0.1mL) into [...] Tablet 1 03/09/2025 oxymetazoline 0.025 % Nasl [place], Non-AerosolIndic ations:Nosebleed 1 [place] by Nasal route 2 times daily as [...] RN - 04/13/2025 10:30 AM EST [facility] Discharge Instructions Thank [...] infection DON'T WAIT, PLEASE CALL US FIRST [phone]. [FOR URGENT ISSUES PLEASE DO NOT LEAVE A MESSAGE, FOLLOW PROMPTS TO THE DOCTOR DISPUTE SPECIALIST] For Gynecology / Oncology call : [phone] Our hours of operation are Sunday - Sunday 8:00 AM - 4:30 PM. [facility] [address] [place] [address] 745 [phone] [address] Results for orders placed or [...] Gran% 2.3 % Lymph Percent 10.2 % [place] Percent 7.8 % Eos Percent 3.7 % Baso Percent 0.7 % Neut # 6.3 (H) 1.6 - 6.1 x10(3)/mcL IMMGRAN# 0.2 (H) 0.0 - 0.1 x10(3)/mcL Lymph # 0.9 (L) 1.2 - 3.9 x10(3)/mcL [place] # 0.7 0.3 - 0.9 x10(3)/mcL Eos# [...] Description 05/01/2025 12:30 PM EST Appointment [facility] [place] [address] Maxx Khan MD 1 [facility] [place] [address] 05/04/2025 8:15 AM EST Appointment [place] [address] 05/04/2025 8:45 AM EST [facility]ment [facility] [place] [address] Maxx Khan MD 1 [facility] [place] [address] 05/04/2025 9:00 AM EST Appointment [facility] [place], [place] [id number] 05/28/2025 10:30 AM EST Appointment [facility] [place] [address] Maxx Khan MD [address] [place] [address] [place] [address] 06/26/2025 10:15 AM EST Appointment [place] [address] Consuelo Ugarte APRN [address] [place] [address] [place] [address] documented as of this encounter Goals Goal [...] at 1145, Until Sun04/14/25 at 0414, 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 Invasive ductal [...] 04/13/2025 documented in this encounter Care Teams Flare Man Relationship Specialty Start Date End Date Idania Cobb RN Oncology Nurse Navigator 01/22/25 Maxx Khan MD 1 [place] [address] Medical Oncologist Internal Medicine-Medical Oncology 02/18/25 Obdulia Mazariegos, RN Registered Nurse 02/18/25 Bhavesh Poole MD 1 [place] [address] Radiation Oncologist Radiology-Radiation Oncology 02/24/25 Elena Buck, Clerical Staff Financial Counselor 02/27/25 documented as of this encounter
[2025-04-22] VITALS (20 sets, daily range): BP systolic 84–147; BP diastolic 51–73; PULSE 61–160; RESP 11–18; TEMP 36.6–37; O2SAT 94–98; BMI 37.8; BMI 37.7
--- NOTE | 2025-04-22 02:59 | ECG_ITS ---
APPROVED REPORT Exam: Resting ECG HR:153 bpm ECG Measurements Heart Rate 153 AXES QRSd 86 QRS -27 QT 288 T 117 QTc 374 Conclusion ATRIAL FIBRILLATION WITH RAPID VENTRICULAR RESPONSE BORDERLINE LEFT AXIS DEVIATION [QRS AXIS < -20] MODERATE VOLTAGE CRITERIA FOR LVH, CONSIDER NORMAL VARIANT [MEETS CRITERIA IN ONE OF: R(aVL), S(V1), R(V5), R(V5/V6)+S(V1)] ST DEVIATION AND MODERATE T-WAVE ABNORMALITY, CONSIDER LATERAL ISCHEMIA [-0.1+ mV T-WAVE IN I/aVL/V5/V6] No STEMI Electronically signed by : SUSAN SHEA, 04/22/2025 07:07:45
--- NOTE | 2025-04-22 03:00 | PC.NURSE ---
Critical received from lab of WBC 42. Dr. Reveles informed.
--- NOTE | 2025-04-22 03:06 | XR_ITS ---
PROCEDURE INFORMATION: Exam: XR Chest Exam date and time: 04/22/2025 3:25 AM Age: 64 years old Clinical indication: Other: Palpitations TECHNIQUE: Imaging protocol: Radiologic exam of the chest. Views: 1 view. COMPARISON: No relevant prior studies available. FINDINGS: Tubes, catheters and devices: Left chest wall port with the catheter tip projecting over the right atrium. Lungs: No focal consolidation. Pleural spaces: No pleural effusion. No pneumothorax. Heart/Mediastinum: The cardiac silhouette is normal in size. The mediastinal and hilar contours are normal. Bones/joints: No acute osseous abnormality. IMPRESSION: No acute cardiopulmonary findings.
[2025-04-22 03:19] LABS: Hematocrit 34.7 % (37.0-47.0); Hemoglobin 11.6 g/dL (12.2-16.2); Immature Granulocytes % 16.5 %; Mean Corpuscular HGB Conc 33.4 g/dL (31.8-35.4); Mean Corpuscular Hemoglobin 30.0 pg (27.0-31.2); Mean Corpuscular Volume 89.7 fl (81-99); Nucleated Red Blood Cells % 0.6 %; Platelet Count 342 K/mm3 (142-424); Red Blood Count 3.87 M/mm3 (4.20-5.40); Red Cell Distribution Width-SD 55.6 fL
[2025-04-22 03:19] LABS: Microscopic, Urine URINE MICROSCOPIC (MICROSCOPIC)
[2025-04-22 03:22] LABS: Bilirubin,Urine Negative (Negative); Color,Urine YELLOW (Yellow); Glucose,Urine (UA) Negative (Negative); Ketones,Urine Negative (Negative); Leukocyte Esterase,Urine 3+ (Negative); PH,Urine 6.0 (5.0-8.5); Protein,Urine 2+ (Negative); Specific Gravity, Urine 1.010 (1.005-1.030); Urobilinogen,Urine 0.2 EU/dl (0.2)
[2025-04-22 03:24] LABS: Bacteria,Urine 2+ /lpf; WBC,Urine 20-50 #/hpf (0-3)
[2025-04-22 03:27] LABS: Alanine Aminotransferase 42 U/L (12-78); Albumin Level 4.1 g/dl (3.5-5.0); Albumin/Globulin Ratio 1.6 (1.1-1.8); Alkaline Phosphatase 212 U/L (38-126); Anion Gap 12.2 mEq/L (5-15); Aspartate Amino Transferase 34 U/L (14-36); Bilirubin,Total 0.6 mg/dl (0.2-1.3); Blood Urea Nitrogen 12 mg/dl (7-17); Calcium 9.4 mg/dl (8.4-10.2); Carbon Dioxide 22 mmol/L (22.0-30.0); Chloride 107 mmol/L (98-107); Creatinine Clearance Estimated 91 mL/min (50-200); Creatinine,Serum 0.80 mg/dl (0.52-1.04); Estimated Glomerular Filt Rate 72 ml/min (>60); GFR (African American) 88 ML/MIN (>60); Globulin 2.5 g/dL (1.3-3.2); Glucose 138 mg/dl (74-100); Potassium 3.2 mmoL/L (3.5-5.1); Sodium 138 mmol/L (136-145); Total Protein,Serum 6.6 g/dl (6.3-8.2)
[2025-04-22 03:28] LABS: White Blood Count 42.1 K/mm3 (4.8-10.8)
[2025-04-22] MEDS: LACTATED RINGERS 1000ML 1,000 ML 999 ML IV (03:30)
[2025-04-22 03:32] LABS: D-Dimer 0.96 ug/mL (0.0-0.5)
[2025-04-22 03:38] LABS: Total Cells Counted 100
--- NOTE | 2025-04-22 03:41 | HMH.EDGENADL ---
Discharge Plan Disposition Patient Disposition: Admitted Condition: Fair Clinical Impressions Clinical Impression: Sepsis, UTI (urinary tract infection), Atrial fibrillation with RVR Discharge ED Provider: Sinai Reveles Adult HPI General Chief complaint: Arrhythmia/Palpitations Stated complaint: Afib Time Seen by Provider: 04/22/25 03:06 Mode of Arrival: EMS Source of Information: Patient Description of Symptoms (Recalled from ER Triage Doc. by RN): Pt presents to ER via EMS with arrythmia. Pt has known history of a-fib with RVR and was diagnosed 10 years ago. Pt states that she feels like her heart is racing and reports that this is the exact feeling she had 10 years ago when first diagnosed. Denies chest pain/SOB at this time. Pt has breast cancer and recieves chemotherapy every 3 weeks History of Present Illness HPI narrative: 64-year-old female actively being treated for breast cancer metastatic to the bones being treated with chemotherapy every 3 weeks at [facility] (last treatment 10 days ago) presents to the ER concerned for A-fib. Patient reports approximately 3 hours prior to arrival she felt racing in her chest that felt like A-fib. When she was diagnosed with afib 10 years ago she had the same symptoms. Patient takes diltiazem 240 mg XR for her A-fib. She states she used to be on blood thinners but had bleeding from every orifice so they determined it was best to keep her off of blood thinners because the risks were greater than the benefits. She states she knows she has intermittent feelings of A-fib, but this 1 has lasted longer than they typically do. 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 She denies headache, dizziness, fevers, chills, chest pain, or difficulty breathing. She denies any dysuria or hematuria but states she does frequently have urinary tract infections and finished antibiotics from Dr. Leahy a few weeks ago. She states she may be dehydrated because she knows she does not take enough by mouth. No other complaints or concerns. Related Data Allergies Allergy/AdvReac Type Severity Reaction Status Date / Time No Known Allergies Allergy Verified 04/22/25 03:03 [facility] Disclaimer: The information contained in this section may have been updated after the patient was seen, as this information can be updated by other users. Medical History (Updated 04/22/25 @ 04:37 by Sinai Reveles MD) Atrial fibrillation with RVR Breast cancer History of kidney cancer Social History Smoking Status: Never smoker alcohol intake: never current occupational status: other Travel in the last 8 weeks?: None ROS Obtained: Yes Systems reviewed as appropriate & no additional complaints except as documented Per HPI Physical Exam General General appearance: alert and in no apparent distress Head Head exam: atraumatic and normocephalic Eye Eye exam: Present PERRL and EOMI ENT ENT exam: Present mucous membranes moist Neck Neck exam: Present normal inspection and full ROM Chest Chest inspection: Present symmetric chest wall rise and other (Left upper chest port) Respiratory Respiratory exam: Present normal lung sounds bilaterally; Absent respiratory distress, wheezes or stridor Cardiovascular Cardiovascular exam: Present tachycardia and irregular rhythm Abdominal Exam Abdominal exam: Present soft; Absent distention or tenderness Extremities Exam Extremities exam: Present full ROM Back Exam Back exam: Absent CVA tenderness (R) or CVA tenderness (L) Neurological Exam Neurological exam: Present alert and oriented X3; Absent motor sensory deficit Psychiatric Psychiatric exam: Present normal affect and normal mood Skin Skin exam: Present warm and dry Medical Decision Making Medical Records Screening: Per USPSTF and CDC recommendations, given the prevalence of disease in our region, it is our hospital?s policy to screen for HIV and viral Hepatitis for all patients aged 18 and over and those with ongoing risk factors. Lio Inquiry Pt receiving controlled substance: No Vital Signs: 04/22/25 02:51 Temperature 98.1 F Temperature Source Oral Pulse Rate [Left Radial] 160 H Respiratory Rate 18 Blood Pressure [Right Arm] 147/65 H Blood Pressure Mean [Right Arm] 92 Blood Pressure Source [Right Arm] Automatic Cuff Blood Pressure Position [Right Arm] Sitting 02 Sat by Pulse Oximetry 97 Oxygen Delivery Method Room Air Lab Data Lab Results 04/22/25 02:54: Urine Color Yellow, Urine Appearance Clear, Urine pH 6.0, Ur Specific Soldier 1.010, Urine Protein 2+ A, Urine Glucose (UA) Negative, Urine Ketones Negative, Urine Blood 2+ A, Urine Nitrate Positive A, Urine Bilirubin Negative, Urine Urobilinogen 0.2, Ur Leukocyte Esterase 3+ A, Urine RBC 10-20, Urine WBC 20-50, Ur Squamous Epith Cells 10-20, Urine Bacteria 2+ 04/22/25 02:55: WBC 42.1 H*, RBC 3.87 L, Hgb 11.6 L, Hct 34.7 L, MCV 89.7, MCH 30.0, MCHC 33.4, RDW 17.2, Plt Count 342, MPV 9.6, Neut % (Auto) 71.4, Lymph % (Auto) 4.5 L, Nolan % (Auto) 7.4, Eos % (Auto) 0.1, Baso % (Auto) 0.1, Neut # (Auto) 30.1 H, Lymph # (Auto) 1.9, Nolan # (Auto) 3.1 H, Eos # (Auto) 0.0, Baso # (Auto) 0.1, Total Counted 100, Neutrophils % (Manual) 40 L, Band Neutrophils % 43 H, Lymphocytes % (Manual) 16, Monocytes % (Manual) 1 L, Platelet Estimate Not Reportable, RBC Morphology Not Reportable, D-Dimer 0.96 H, Sodium 138, Potassium 3.2 L, Chloride 107, Carbon Dioxide 22, Anion Gap 12.2, BUN 12, Creatinine 0.80, Estimated Creat Clear 91, Estimated GFR 72, Est GFR ( Amer) 88, Glucose 138 H, Calcium 9.4, Total Bilirubin 0.6, AST 34, ALT 42, Alkaline Phosphatase 212 H, Troponin I < 0.01, Total Protein 6.6, Albumin 4.1, Globulin 2.5, Albumin/Globulin Ratio 1.6, TSH 2.73, Free T4 1.42, HCV Ab NAVIN w/Rflx PCR Qn Negative, HIV Ag/Ab Combo Qual Negative 04/22/25 02:55 04/22/25 02:55 Orders (Tests/Meds): ED MEDICATIONS Discontinued Medications Generic Name Dose Route Start Last Admin Trade Name Freq PRN Reason Stop Dose Admin Diltiazem HCl 15 mg 04/22/25 03:06 04/22/25 03:30 Diltiazem 25mg/5ml Vial IV 04/22/25 03:07 15 mg ONCE ONE Administration Diltiazem HCl 15 mg 04/22/25 04:25 Diltiazem 25mg/5ml Vial IV 04/22/25 04:26 ONCE ONE Lactated Ringer's 1,000 mls @ 999 mls/hr 04/22/25 03:15 04/22/25 03:30 Lactated Ringer's 1000 Ml Bag IV 04/22/25 04:15 999 mls/hr .Q1H1M ONE Administration Piperacillin Sod/Tazobactam 100 mls @ 200 mls/hr 04/22/25 03:40 04/22/25 04:29 Sod 4.5 gm/ Sodium Chloride IV 04/22/25 04:09 Infused ONCE ONE Infusion Lactated Ringer's 640 mls @ 999 mls/hr 04/22/25 03:39 Lactated Ringer's 1000 Ml Bag IV 04/22/25 04:17 .Q39M ONE ORDERS Category Date Time Status CXR --portable [XR chest portable] Stat Exams 04/22/25 03:06 Completed CBC w/Auto Diff [Complete Blood Count Auto Diff] Stat Lab 04/22/25 02:55 Completed CMP [Comprehensive Metabolic Panel] Stat Lab 04/22/25 02:55 Completed D-Dimer Stat Lab 04/22/25 02:55 Completed Free T4 (Free Thyroxine) Stat Lab 04/22/25 02:55 Completed HIV Combo Stat Lab 04/22/25 02:55 Completed Hepatitis C Ab Qual. W/ RFX Stat Lab 04/22/25 02:55 Completed TSH [Thyroid Stimulating Hormone] Stat Lab 04/22/25 02:55 Completed Trop I [Troponin I] Stat Lab 04/22/25 02:55 Completed Troponin I Q3H Lab 04/22/25 06:15 Ordered Troponin I Q3H Lab 04/22/25 09:15 Ordered Urinalysis and Microscopic Stat Lab 04/22/25 02:54 Completed Blood Culture Stat Micro 04/22/25 03:40 Received Urine Culture Stat Micro 04/22/25 02:54 Received ECG Request Stat Y 04/22/25 03:06 Ordered Medical Decision Narrative: In summary, this 64-year-old female with comorbidities described in the HPI presents to the emergency department today with concerns of atrial fibrillation. EMS reports A-fib RVR but not hypotensive. On initial evaluation patient is tachycardic with irregular rhythm, not hypotensive, afebrile, remainder of exam unremarkable. Differential diagnosis includes but is not limited to ACS, PE, electrolyte abnormality, dehydration, kidney dysfunction, also considered the possibility of infection such as pneumonia, UTI. Based on these concerns, I ordered hematologic and serum labs, D-dimer, cardiac workup, urinalysis, chest x-ray. ECG personally interpreted demonstrates A-fib RVR rate 153, normal QTc, no STEMI. Patient received diltiazem and IV fluids initially for treatment. Labs personally reviewed demonstrate severe leukocytosis WBC 42.1. Patient reports she typically runs low and has to take a booster shot a few days after chemo. On discussion with her she states her WBC has never been this high. She has mild anemia hemoglobin 11.6 which is nonspecific and nonactionable at this time, normal platelets, UA very obviously infected with blood, nitrates, leukocyte esterase, numerous WBCs. With these findings patient meets sepsis criteria. She is receiving additional IV fluids to complete a full sepsis bolus as well as starting the patient on Zosyn for broad-spectrum antibiotic coverage. Blood cultures collected. Patient reports that she took Bactrim starting 04/08 but did not finish this course. I considered performing CT abdomen pelvis however patient has no abdominal tenderness, no CVA tenderness. I do not have anything specifically focal I would be looking for at this time. Patient has protein in her urine concerning for ascending infection but without pain I am not convinced for pyelonephritis send have low concern for perinephric abscess as well. XR personally interpreted demonstrates no acute intrathoracic abnormality, see radiology for final interpretation. D-dimer 0.96, but patient has no respiratory symptoms, no chest pain or pressure, and patient gets frequent radiographic imaging so would prefer to avoid CT imaging at this time since I have other reasons for her heart rate to be tachycardic with her obvious infection and sepsis. I am not going to perform CTA PE. I recommended admission to the hospital to this patient and her at bedside. I want her to be treated with IV antibiotics as well as continue to manage her A-fib RVR. She did not have significant improvement after her initial diltiazem push so a second push has been ordered, I suspect that her heart rate will significantly improve once the antibiotics and IV fluids are in full effect. Patient is agreeable to the plan for admission. I reach out to the hospitalist and spoke with Dr. Billingsley. We reviewed this case and he graciously accepted this patient for admission. She was admitted in stable condition. Critical Care Critical Care Time Critical Care Time: Yes Attestation: On , the high probability of a clinically significant, sudden or life threatening deterioration of the following system(s) required my full and direct attention, intervention and personal management. The time I documented below is in addition to time spent performing reported procedures but includes the following listed in this critical care notation. Total Time Total Critical Care Time: 35
--- NOTE | 2025-04-22 03:45 | PC.NURSE ---
Port accessed by Thomas Gilmore RN
[2025-04-22 03:47] LABS: Free T4 (Free Thyroxine) 1.42 ng/dl (0.78-2.19)
[2025-04-22 04:00] LABS: Thyroid Stimulating Hormone 2.73 uIU/mL (0.465-4.68)
[2025-04-22] MEDS: PIPERACILLIN/TAZO 4.5 GM in 0.9 % SODIUM CHLORIDE 100 ML IV (04:00)
[2025-04-22 04:03] LABS: Troponin I < 0.01 ng/ml (0.00-0.034)
[2025-04-22 04:18] LABS: Hepatitis C Ab Qual. W/ RFX NEGATIVE (Negative)
--- OUTSIDE RECORDS SUMMARY | 2025-04-22 04:54 | XMS_ITS | Encounter Summary ---
Author Organization [place] [address] Care Team Providers Care Licensing Representative Name Role Phone Idania Cobb RN Unavailable Maxx Khan MD Unavailable [phone] Obdulia Mazariegos RN Unavailable Unavailable Bhavesh Poole MD Unavailable Elena Buck Clerical Staff Unavailable Francisca Oconnor RN Unavailable Unava ilable Ankush Jean RN Unavailable Unavailable Encounter Details Date Type Department Care Team (Late st Contact Info) Description 01/20/2025 Orders Only [facility] [address] [place] [address] Elena Young MD [address] [place] [id number] Social History Tobacco Use Types Packs/Day Years Used Date Smoking Tobacco: Former Cigarettes Q uit: 1980 Smokeless Tobacco: Never Alcohol Use Standard Drinks/Week Comments Never 0 (1 standard drink = 0.6 oz pur e alcohol) Comments No Sex and Gender Information Value Date Recorded Sex Assigned at Not on file Legal Sex Female 6:43 PM EDT Gender Identity Not on file Sexual Orientation Not on file documented as of this encounter Plan of Treatment Upcoming Encounters Date Type Department Care Team (Late st Contact Info) Description 05/01/2025 12:30 PM EST Appointment [facility] [place] [address] Maxx Khan MD [address] [place] [address] [place] [address] 05/04/2025 8:15 AM EST Appointment [place] [address] 05/04/2025 8:45 AM EST [facility]ment [facility] [place] [address] Maxx Khan MD [address] [facility] [place] [address] 05/04/2025 9:00 AM EST Appointment [facility] [place] [address] 05/28/2025 10:30 AM EST Appointment [facility] [place] [address] Maxx Khan MD [address] [place] [address] [facility] [place] [place] [address] 06/26/2025 10:15 AM EST Appointment [place] [address] Consuelo Ugarte APRN [address] [place] [address] [facility] [place] [place] [address] documented as of this encounter Procedures Procedure Name Priority Date/Time Associated Diagnosis Comments NEOGENOMICS BREAST PANEL (3 STAIN) Routine 01/20/2025 10:41 AM EDT documented in this encounter Results * NEOGENOMICS BREAST PANEL (3 STAIN) (01/20/2025 10:41 AM EDT) 01/20/2025 10:4 1 AM EDT Narrative [facility] - 01/24/2025 9:15 PM EDT Requesting Provider: NICOLASA Patel Specimen = [id number] us Elena Young MD PATHOLOGY ORDERABLES Final R esult [facility] [address] [place] [address] documented in this encounter Visit Diagnoses Not on filedocumented in this encounter Care Teams Licensing Representative Relationship Specialty Start Date End Date Idania Cobb, RN Oncology Nurse Navigator 01/22/25 Maxx Khan MD 1 [place] [address] Medical Oncologist Internal Medicine-Medical Oncology 02/18/25 Obdulia Mazariegos, ANTHONY Registered Nurse 02/18/25 Bhavesh Poole MD 1 [place], [place] [id number] Radiation Oncologist Radiology-Radiation Oncology 02/24/25 Elena Buck, Clerical Staff Financial Counselor 02/27/25 Francisca Oconnor, RN Registered Nurse Infusion Therapy 03/02/25 03/02/25 Ankush Jean, ANTHONY Registered Nurse Infusion Therapy 03/23/25 03/23/25 documented as of this encounter
--- OUTSIDE RECORDS SUMMARY | 2025-04-22 04:54 | XMS_ITS | Encounter Summary ---
Author Organization [place] [address] Care Team Providers Care Molding Room Supervisor Name Role Phone Idania Cobb RN Unavailable Maxx Khan MD Unavailable [phone] Obdulia Mazariegos RN Unavailable Unavailable Bhavesh Poole MD Unavailable Elena Buck Clerical Staff Unavailable Francisca Oconnor RN Unavailable Unava ilable Ankush Jean RN Unavailable Unavailable Encounter Details Date Type Department Care Team (Late st Contact Info) Description 01/20/2025 Orders Only [facility] [place] [address] Elena Young MD [address] [place] [address] Social History Tobacco Use Types Packs/Day Years [...] Appointment [facility] [place] [address] Maxx Khan MD [address] [place] [address] [place] [address] 05/04/2025 8:15 AM EST Appointment [place] [address] 05/04/2025 8:45 AM EST [facility]ment [facility] [place] [address] Maxx Khan MD [address] [facility] [place] [address] 05/04/2025 9:00 AM EST Appointment [place] [place] [address] 05/28/2025 10:30 AM EST Appointment [facility] [place] [address] Maxx Khan MD [address] [place] [address] [facility] [place] [address] 06/26/2025 10:15 AM EST Appointment [facility] [place] [address] Consuelo Ugarte APRN [address] [place] [address] [facility] [place] [address] documented as of this encounter Procedures Procedure Name Priority Date/Time Associated Diagnosis Comments NEOGENOMICS BREAST PANEL (3 STAIN) Routine 01/20/2025 10:41 AM EDT documented in this encounter Results * NEOGENOMICS BREAST PANEL (3 STAIN) (01/20/2025 10:41 AM EDT) 01/20/2025 10:4 1 AM EDT Narrative [facility] - 01/24/2025 9:40 PM EDT Requesting Provider: NICOLASA Patel Specimen = [id number] us Elena Young MD PATHOLOGY ORDERABLES Final R esult [facility] [address] [place] [address] documented in this encounter Visit Diagnoses Not on filedocumented in this encounter Care Teams Molding Room Supervisor Relationship Specialty Start Date End Date Idaina Cobb, RN Oncology Nurse Navigator 01/22/25 Maxx Khan MD 1 [place] [address] Medical Oncologist Internal Medicine-Medical Oncology 02/18/25 Obdulia Mazariegos, ANTHONY Registered Nurse 02/18/25 Bhavesh Poole MD 1 [place], [place] [id number] Radiation Oncologist Radiology-Radiation Oncology 02/24/25 Elena Buck, Clerical Staff Financial Counselor 02/27/25 Francisca Oconnor, RN Registered Nurse Infusion Therapy 03/02/25 03/02/25 Ankush Jean, ANTHONY Registered Nurse Infusion Therapy 03/23/25 03/23/25 documented as of this encounter
--- OUTSIDE RECORDS SUMMARY | 2025-04-22 04:54 | XMS_ITS | Encounter Summary ---
Author Organization [place] [address] Care Team Providers Care Rugby League Footballer Name Role Phone Idania Cobb RN Unavailable Maxx Khan MD Unavailable [phone] Obdulia Mazariegos RN Unavailable Unavailable Bhavesh Poole MD Unavailable Elena Buck Clerical Staff Unavailable Francisca Oconnor RN Unavailable Unava ilable Ankush Jean RN Unavailable Unavailable Encounter Details Date Type Department Care Team (Late st Contact Info) Description 02/17/2025 Results Follow-Up [facility] 1 [place] [address] Celina Mckay CGC 1 [place] [address] GENETIC SCANNING Social History Tobacco Use Types Packs/Day Years [...] on file documented as of this encounter Functional Status * PHQ-9 Total Score Answer Date of Assessment Author 0 02/18/2025 12:45 PM EDT Annalisa Salcedo CMA * Question Answer Date of Assessment Author Little interest or pleasure in doing things 0 02/18/2025 12:45 PM EDT Annalisa Salcedo CMA Feeling down, depressed, or hopeless 0 02/18/2025 12:45 PM EDT Annalisa Salcedo CMA PHQ-2 Total Score 0 02/18/2025 12:45 PM EDT Annalisa Salcedo CMA * PHQ-2 Total Score Answer Date of Assessment Author 0 02/18/2025 12:45 PM EDT Annalisa Salcedo CMA documented as of this encounter Plan of Treatment Upcoming Encounters Date Type Department Care Team (Late st Contact Info) Description 05/01/2025 12:30 PM EST Appointment [facility] [place] [address] Maxx Khan MD [address] [facility] [place] [address] 05/04/2025 8:15 AM EST Appointment [place] [address] 05/04/2025 8:45 AM EST [facility]ment [facility] [place] [address] Maxx Khan MD [address] [place] [address] [address] [place] [address] 05/04/2025 9:00 AM EST Appointment [facility] [place], [place] [id number] 05/28/2025 10:30 AM EST Appointment [facility] [place] [address] Maxx Khan MD [address] [place] [address] [place] [address] 06/26/2025 10:15 AM EST Appointment [facility] [place] [address] Consuelo Ugarte APRN [address] [facility] [address] [place] [address] documented as of this encounter Goals Goal Patient Goal Type Associated Problems Recent Progress Patient-Stated? Author Breast Health Breast Health Yenni Funk RN Note: Patient acknowledges understanding of new diagnosis, plan of care, available resources and how to contact Nurse Navigator with any future questions or concerns. documented as of this encounter Visit Diagnoses Not on filedocumented in this encounter Care Teams Rugby League Footballer Relationship Specialty Start Date End Date Idania Cobb RN Oncology Nurse Navigator 01/22/25 Maxx Khan MD 1 [place] [address] Medical Oncologist Internal Medicine-Medical Oncology 02/18/25 Obdulia Mazariegos, ANTHONY Registered Nurse 02/18/25 Bhavesh Poole MD 1 [place] [address] Radiation Oncologist Radiology-Radiation Oncology 02/24/25 Elena Buck, Clerical Staff Financial Counselor 02/27/25 Francisca Oconnor, RN Registered Nurse Infusion Therapy 03/02/25 03/02/25 Ankush Jean, ANTHONY Registered Nurse Infusion Therapy 03/23/25 03/23/25 documented as of this encounter
--- OUTSIDE RECORDS SUMMARY | 2025-04-22 04:54 | XMS_ITS | Encounter Summary ---
Author Organization [facility] [address] Care Team Providers Care Rouge Mixer Name Role Phone Idania Cobb RN Unavailable Maxx Khan MD Unavailable [phone] Obdulia Mazariegos RN Unavailable Unavailable Bhavesh Poole MD Unavailable Encounter Details Date Type Department Care Team (Late st Contact Info) Description 02/16/2025 Orders Only [facility] 1 [place] [address] Provider, [address] [place] [address] Social History Tobacco Use Types Packs/Day Years [...] EST Appointment [facility] [place] [address] Maxx Khan MD [address] [facility] [place] [address] 05/04/2025 8:15 AM EST Appointment [place] [address] 05/04/2025 8:45 AM EST Appointment [facility] [place] [address] Maxx Khan MD [address] [facility] [place] [address] 05/04/2025 9:00 AM EST Appointment [place] [address] 05/28/2025 10:30 AM EST Appointment [facility] [place] [address] Maxx Khan MD [address] [facility] [place] [address] 06/26/2025 10:15 AM EST Appointment [place] [address] Consuelo Ugarte APRN [address] [facility] [place] [address] documented as of this encounter Goals Goal Patient Goal Type Associated Problems Recent Progress Patient-Stated? Author Breast Health Breast Health Yenni Funk, RN Note: Patient acknowledges understanding of new diagnosis, plan of care, available resources and how to contact Nurse Navigator with any future questions or concerns. documented as of this encounter Procedures Procedure Name Priority Date/Time Associated Diagnosis Comments GENETIC SCANNING Routine 02/16/2025 9:21 AM EDT documented in this encounter Results * GENETIC SCANNING (02/16/2025 9:21 AM EDT) Blood us Historical Provider HEMATOLOGY ORDERABLES Final Result Performing Organization Address City/State/[facility] Co de Phone Number [facility] [phone] [facility] [address] [phone] documented in this encounter Visit Diagnoses Not on filedocumented in this encounter Care Teams Rouge Mixer Relationship Specialty Start Date End Date Idania Cobb RN Oncology Nurse Navigator 01/22/25 Maxx Khan MD 1 [place] [address] Medical Oncologist Internal Medicine-Medical Oncology 02/18/25 Obdulia Mazariegos, ANTHONY Registered Nurse 02/18/25 Bhavesh Poole MD 1 [place] [address] Radiation Oncologist Radiology-Radiation Oncology 02/24/25 documented as of this encounter
--- OUTSIDE RECORDS SUMMARY | 2025-04-22 04:54 | XMS_ITS | Encounter Summary ---
Author Organization [place] [address] Care Team Providers Care Systems Test Analyst Name Role Phone Idania Cobb RN Unavailable Maxx Khan MD Unavailable [phone] Obdulia Mazariegos RN Unavailable Unavailable Bhavesh Poole MD Unavailable Elena Buck Clerical Staff Unavailable Francisca Oconnor RN Unavailable Unava ilable Ankush Jean RN Unavailable Unavailable Reason for Visit * Reason Onset Date Comments Follow-up 02/09/2025 Encounter Details Date Type Department Care Team (Late st Contact Info) Description 02/09/2025 Telephone [facility] [place] [address] Yenni Shankar, ANTHONY Follow-up Social History Tobacco Use Types Packs/Day Years [...] Salcedo CMA documented as of this encounter Ordered Prescriptions Prescription Sig Dispense Quantity Refills Last Filled Start Date End Date oxyCODONE (ROXICODONE) 5 mg Oral Tablet Take 1 Tablet by mouth every 6 hours as needed for Acute Pain (R52) or Cancer Pain (G89.3) for up to 10 days. 40 Tablet 02/12/2025 02/19/2025 documented in this encounter Miscellaneous Notes * Telephone Encounter - Tresa Jacinto DO - 02/12/2025 12:25 PM EDT I spoke to Rosario about her pathology results from the punch biopsy and PET scan results. Punch biopsy was negative for dermal lymphatic invasion, not inflammatory disease. She has widely metastatic disease. She is already scheduled with Dr. Khan next week, I told her she does not need to follow up here as surgery will not be recommended for her. She is having significant pain in her back from metastases, I will send her in oxycodone for now and Dr. Khan/palliative care will take over after her visit with them. * Telephone Encounter - Vin Quiroga RN - 02/12/2025 12:00 PM EDT PET scan results are now available. * Telephone Encounter - Vin Quiroga RN - 02/12/2025 8:51 AM EDT PET scan results not available. * Telephone Encounter - Tresa Jacinto DO - 02/11/2025 8:32 AM EDT I will call her today after her PET with biopsy results and PET results. I'll update when I talk toher. * Telephone Encounter - Vin Quiroga RN - 02/11/2025 8:12 AM EDT Pathology: Skin, right breast, punch biopsy: - Benign skin fragment with mild dermal perivascular chronic inflammation. - Negative for cytologic atypia or malignancy. Await PET and brain MRI to review with [place]. * Telephone Encounter - Yenni Shankar RN - 02/09/2025 5:13 PM EDT Patient saw Dr Jacinto on 02/06/25. Rt breast skin punch biopsy done. Dr Jacinto to call patient with results. BHN: Follow to see pt was called with punch biopsy results Pt is also scheduled for PET scan 02/11 and brain MRI 03/12. Review with Dr Jacinto after results are back for next steps (will pt need fci thru chemo appt) documented in this encounter Plan of Treatment Upcoming Encounters Date Type Department Care Team (Late st Contact Info) Description 05/01/2025 12:30 PM EST Appointment [facility] [place] [address] Maxx Khan MD [address] [place] [address] [place] [address] 05/04/2025 8:15 AM EST Appointment [place] [address] 05/04/2025 8:45 AM EST [facility]ointment [facility] [place] [address] Maxx Khan MD 1 [facility] [place] [address] 05/04/2025 9:00 AM EST Appointment [facility] [place] [place], [place] [id number] 05/28/2025 10:30 AM EST Appointment [facility] [place] [address] Maxx hKan MD [address] [place] [address] [facility] [place] [place] [address] 06/26/2025 10:15 AM EST Appointment [place] [address] Consuelo Ugarte APRN [address] [place] [address] [place] [address] documented as of this encounter Goals Goal Patient Goal Type Associated Problems Recent Progress Patient-Stated? Author Breast Health Breast Health Yenni Funk, RN Note: Patient acknowledges understanding of new diagnosis, plan of care, available resources and how to contact Nurse Navigator with any future questions or concerns. documented as of this encounter Visit Diagnoses Not on filedocumented in this encounter Care Teams Systems Test Analyst Relationship Specialty Start Date End Date Idania Cobb RN Oncology Nurse Navigator 01/22/25 Maxx Khan MD 1 [facility] [address] Medical Oncologist Internal Medicine-Medical Oncology 02/18/25 Obdulia Mazariegos, ANTHONY Registered Nurse 02/18/25 Bhavesh Poole MD [address] [place] [address] Radiation Oncologist Radiology-Radiation Oncology 02/24/25 Elena Buck, Clerical Staff Financial Counselor 02/27/25 Francisca Oconnor, ANTHONY Registered Nurse Infusion Therapy 03/02/25 03/02/25 Ankush Jean, ANTHONY Registered Nurse Infusion Therapy 03/23/25 03/23/25 documented as of this encounter
--- OUTSIDE RECORDS SUMMARY | 2025-04-22 04:54 | XMS_ITS | Encounter Summary ---
Author Organization [place] [address] Care Team Providers Care Marriage Counselor Minister Name Role Phone Idania Cobb RN Unavailable Maxx Khan MD Unavailable [phone] Obdulia Mazariegos RN Unavailable Unavailable Bhavesh Poole MD Unavailable Elena Buck Clerical Staff Unavailable Francisca Oconnor RN Unavailable Unava ilable Ankush Jean RN Unavailable Unavailable Encounter Details Date Type Department Care Team (Late st Contact Info) Description 02/12/2025 Results Follow-Up [facility] Women's Wellness [facility] [place] [id number] Tresa Jacinto, [address] [place] [address] SKULL BASE TO MID THIGH Social History Tobacco Use Types Packs/Day Years [...] hopeless 0 02/18/2025 12:45 PM EDT Annalisa Salecdo CMA PHQ-2 Total Score 0 02/18/2025 12:45 PM EDT Annalisa Salcedo CMA * PHQ-2 Total Score Answer Date of Assessment Author 0 02/18/2025 12:45 PM EDT Annalisa Salcedo CMA documented as of this encounter Plan of Treatment Upcoming Encounters Date Type Department Care Team (Late st Contact Info) Description 05/01/2025 12:30 PM EST Appointment [facility] [place] [address] Maxx Khan MD 1 [facility] [place] [address] 05/04/2025 8:15 AM EST Appointment [place] [address] 05/04/2025 8:45 AM EST Appointment [facility] [place] [address] Maxx Khan MD 1 [facility] [address] [place] [address] 05/04/2025 9:00 AM EST Appointment [facility] [place], [place] [id number] 05/28/2025 10:30 AM EST Appointment [facility] [place] [address] Maxx Khan MD 1 [facility] [place] [address] 06/26/2025 10:15 AM EST Appointment [facility] [place] [address] Consuelo Ugarte APRN 1 [facility] [address] [place] [address] documented as of this encounter Goals Goal Patient Goal Type Associated Problems Recent Progress Patient-Stated? Author Breast Health Breast Health Yenni Funk RN Note: Patient acknowledges understanding of new diagnosis, plan of care, available resources and how to contact Nurse Navigator with any future questions or concerns. documented as of this encounter Visit Diagnoses Not on filedocumented in this encounter Care Teams Marriage Counselor Minister Relationship Specialty Start Date End Date Idania Cobb RN Oncology Nurse Navigator 01/22/25 Maxx Khan MD 1 [place], [place] [id number] Medical Oncologist Internal Medicine-Medical Oncology 02/18/25 Obdulia aMzariegos, ANTHONY Registered Nurse 02/18/25 Bhavesh Poole MD 1 [place] [address] Radiation Oncologist Radiology-Radiation Oncology 02/24/25 Elena Buck, Clerical Staff Financial Counselor 02/27/25 Francisca Oconnor, ANTHONY Registered Nurse Infusion Therapy 03/02/25 03/02/25 Ankush Jean, ANTHONY Registered Nurse Infusion Therapy 03/23/25 03/23/25 documented as of this encounter
--- OUTSIDE RECORDS SUMMARY | 2025-04-22 04:54 | XMS_ITS | Encounter Summary ---
Author Organization [place] [address] Care Team Providers Care Communication Electronic Technician Name Role Phone Idania Cobb RN Unavailable Maxx Khan MD Unavailable [phone] Obdulia Mazariegos RN Unavailable Unavailable Bhavesh Poole MD Unavailable Elena Buck Clerical Staff Unavailable Francisca Oconnor RN Unavailable Unava ilable Reason for Visit * Reason Onset Date Comments Other 01/22/2025 MRI BILL - [employer]? Encounter Details Date Type Department Care Team (Late st Contact Info) Description 01/22/2025 Telephone [facility] Women's Wellness [place] [id number] Rachel Jeronimo RN Other (MRI BILL - [employer]?) Social History Tobacco Use Types Packs/Day Years [...] Salcedo CMA documented as of this encounter Miscellaneous Notes * Telephone Encounter - Elena Gómez RN - 01/26/2025 10:18 AM EDT Spoke with patient and informed her of coverage for MRI using [employer]. Pt verbalizes understanding. * Telephone Encounter - Paola Lr RN - 01/26/2025 9:55 AM EDT Per email conversation with Rachel Jeronimo, Stacy Umaña, and Elena Kim- breast MRI (01/07/25) has been approved for coverage per [employer]-- Elena has updated account and emailed RANK about this. Call to patient to inform her of this good news-- left her a message requesting areturn call to [facility]. * Telephone Encounter - Rachel Jeronimo RN - 01/22/2025 3:13 PM EDT Pt here for positive results 01/22/25 - melita IDC and rt pos node. She spoke with JOHN Solano, after results appt and stated she received bill for MRI that she had on01/07/25. Note that pt was previously screened and approved for rally for dx imaging. An MRI was then recommended (see notes from 01/02/25 w/Tresa Santiago) and she thought [employer] would cover the cost. The following is from email sent to Stacy: This patient had dx imaging covered by [employer]. She was then recommended a breast MRI (see epic notes/visit on 01/02/25) and did have a breast MRI on01/07/25. She did receive a bill for cost of MRI and one from [facility]. She thought that [employer] would also cover the MRI. I cannot find notes from anyone regarding rally coverage from MRI. She does not have insurance. She would qualify for [employer]. Name: Rosario Man : 62 Please let us know what to do about this one. Our social workers and financial counselors are also working with this patient. ALVARO, f/u with Stacy documented in this encounter Plan of Treatment Upcoming Encounters Date Type Department Care Team (Late st Contact Info) Description 05/01/2025 12:30 PM EST Appointment [facility] [address] [place], [place] [id number] Maxx Khan MD [address] [place] [address] [place] [address] 05/04/2025 8:15 AM EST Appointment [place] [address] 05/04/2025 8:45 AM EST Appointment [facility] [place], [place] [id number] Maxx Khan MD [address] [place] [address] [place] [address] 05/04/2025 9:00 AM EST Appointment [facility] [place], [place] [id number] 05/28/2025 10:30 AM EST Appointment [facility] [place] [address] Maxx Khan MD 1 [facility] [place] [address] 06/26/2025 10:15 AM EST Appointment [facility] [place] [address] Consuelo Ugarte APRN [address] [facility] [place] [address] documented as of this encounter Goals Goal Patient Goal Type Associated Problems Recent Progress Patient-Stated? Author Breast Health Breast Health Yenni Funk RN Note: Patient acknowledges understanding of new diagnosis, plan of care, available resources and how to contact Nurse Navigator with any future questions or concerns. documented as of this encounter Visit Diagnoses Not on filedocumented in this encounter Care Teams Communication Electronic Technician Relationship Specialty Start Date End Date Idania Cobb RN Oncology Nurse Navigator 01/22/25 Maxx Khan MD [address] [facility] [address] [place], [place] [id number] Medical Oncologist Internal Medicine-Medical Oncology 02/18/25 Obdulia Mazariegos, RN Registered Nurse 02/18/25 Bhavesh Poole MD 1 [place] [address] Radiation Oncologist Radiology-Radiation Oncology 02/24/25 Elena Buck, Clerical Staff Financial Counselor 02/27/25 Francisca Oconnor, ANTHONY Registered Nurse Infusion Therapy 03/02/25 03/02/25 documented as of this encounter
--- OUTSIDE RECORDS SUMMARY | 2025-04-22 04:54 | XMS_ITS | Encounter Summary ---
Author Organization [place] [address] Care Team Providers Care Assistant Tennis Coach Name Role Phone Idania Cobb RN Unavailable Maxx Khan MD Unavailable [phone] Obdulia Mazariegos RN Unavailable Unavailable Bhavesh Poole MD Unavailable Elena Buck Clerical Staff Unavailable Francisca Oconnor RN Unavailable Unava ilable Ankush Jean RN Unavailable Unavailable Encounter Details Date Type Department Care Team (Late st Contact Info) Description 01/20/2025 Orders Only [facility] [place] [address] Elena Young MD [address] [place] [address] Social History Tobacco Use Types Packs/Day Years [...] PM EST Appointment [facility] [place] [address] Maxx Khan MD [address] [place] [address] [place] [address] 05/04/2025 8:15 AM EST Appointment [facility] [place] [address] 05/04/2025 8:45 AM EST Appointment [facility] [place] [address] Maxx Khan MD [address] [facility] [place] [address] 05/04/2025 9:00 AM EST Appointment [place] [address] 05/28/2025 10:30 AM EST Appointment [facility] [place] [address] Maxx Khan MD [address] [place] [address] [facility] [place] [address] 06/26/2025 10:15 AM EST Appointment [facility] [place] [place] [address] Consuelo Ugarte APRN [address] [place] [address] [facility] [place] [address] documented as of this encounter Procedures Procedure Name Priority Date/Time Associated Diagnosis Comments NEOGENOMICS BREAST PANEL (3 STAIN) Routine 01/20/2025 10:41 AM EDT documented in this encounter Results * NEOGENOMICS BREAST PANEL (3 STAIN) (01/20/2025 10:41 AM EDT) 01/20/2025 10:4 1 AM EDT Narrative [facility] - 01/24/2025 8:59 PM EDT Requesting Provider: NICOLASA Patel Specimen = [id number] us Elena Young MD PATHOLOGY ORDERABLES Final R esult [facility] [address] [place] [address] documented in this encounter Visit Diagnoses Not on filedocumented in this encounter Care Teams Assistant Tennis Coach Relationship Specialty Start Date End Date Idania Cobb, RN Oncology Nurse Navigator 01/22/25 Maxx Khan MD 1 [place] [address] Medical Oncologist Internal Medicine-Medical Oncology 02/18/25 Obdulia Mazariegos, ANTHONY Registered Nurse 02/18/25 Bhavesh Poole MD 1 [place], [place] [id number] Radiation Oncologist Radiology-Radiation Oncology 02/24/25 Elena Buck, Clerical Staff Financial Counselor 02/27/25 Francisca Oconnor, RN Registered Nurse Infusion Therapy 03/02/25 03/02/25 Ankush Jean, ANTHONY Registered Nurse Infusion Therapy 03/23/25 03/23/25 documented as of this encounter
--- OUTSIDE RECORDS SUMMARY | 2025-04-22 04:54 | XMS_ITS | Encounter Summary ---
Author Organization [place] [address] Care Team Providers Care Hairspring Adjuster Name Role Phone Idania Cobb RN Unavailable Maxx Khan MD Unavailable [phone] Obdulia Mazariegos RN Unavailable Unavailable Bhavesh Poole MD Unavailable Elena Buck Clerical Staff Unavailable Francisca Oconnor RN Unavailable Unava ilable Ankush Jean RN Unavailable Unavailable Reason for Visit * Reason Onset Date Comments Other 02/06/2025 Exercise RX Encounter Details Date Type Department Care Team (Late st Contact Info) Description 02/06/2025 Telephone [facility] Women's Wellness [place] [phone] Yenni Shankar RN Other (Exercise RX) Social History Tobacco Use Types Packs/Day Years [...] Telephone Encounter - Elena Gómez RN - 02/17/2025 1:06 PM EDT Spoke with patient, she does not want to commit until she meets with her medical oncologist tomorrow. She is okay getting a call next Sunday OR she may contact us through my chart by replying to message. * Telephone Encounter - Vin Quiroga RN - 02/10/2025 2:21 PM EDT Attempted call to enroll patient, LVM. * Telephone Encounter - Yenni Shankar RN - 02/06/2025 2:59 PM EDT Pt is interested in Exercise Rx. Pt filled out form. Form placed in folder. documented in this encounter Plan of Treatment Upcoming Encounters Date Type Department Care Team (Late st Contact Info) Description 05/01/2025 12:30 PM EST Appointment [facility] [place] [address] Maxx Khan MD [address] [place] [address] 05/04/2025 8:15 AM EST Appointment [facility] [place], [place] [address] 05/04/2025 8:45 AM EST Appointment [facility] [place] [address] Maxx Khan MD [address] [facility] [place] [address] 05/04/2025 9:00 AM EST Appointment [facility] [place] [place], [place] [id number] 05/28/2025 10:30 AM EST Appointment [facility] [place] [address] Maxx Khan MD [address] [place] [address] [place], [place] [address] 06/26/2025 10:15 AM EST Appointment [place] [address] Consuelo Ugarte APRN [address] [facility] [place] [place] [address] documented as of this encounter Goals Goal Patient Goal Type Associated Problems Recent Progress Patient-Stated? Author Breast Health Breast Health Yenni Funk, RN Note: Patient acknowledges understanding of new diagnosis, plan of care, available resources and how to contact Nurse Navigator with any future questions or concerns. documented as of this encounter Visit Diagnoses Not on filedocumented in this encounter Care Teams Hairspring Adjuster Relationship Specialty Start Date End Date Idania Cobb RN Oncology Nurse Navigator 01/22/25 Maxx Khan MD [address] [facility] [place] [address] Medical Oncologist Internal Medicine-Medical Oncology 02/18/25 Obdulia Mazariegos, RN Registered Nurse 02/18/25 Bhavesh Poole MD [address] [place] [address] Radiation Oncologist Radiology-Radiation Oncology 02/24/25 Elena Buck, Clerical Staff Financial Counselor 02/27/25 Francisca Oconnor, ANTHONY Registered Nurse Infusion Therapy 03/02/25 03/02/25 Ankush Jean, ANTHONY Registered Nurse Infusion Therapy 03/23/25 03/23/25 documented as of this encounter
--- OUTSIDE RECORDS SUMMARY | 2025-04-22 04:55 | XMS_ITS | Encounter Summary ---
Author Organization [place] [address] Care Team Providers Care Foot Worker Name Role Phone Idania Cobb RN Unavailable Maxx Khan MD Unavailable [phone] Obdulia Mazariegos RN Unavailable Unavailable Bhavesh Poole MD Unavailable Elena Buck Clerical Staff Unavailable Encounter Details Date Type Department Care Team (Late st Contact Info) Description 03/18/2025 Orders Only [facility] Cancer Care [facility] [place] [address] Bhavesh Poole MD [address] [place], [place] [phone] Social History Tobacco Use Types Packs/Day Years [...] Info) Description 05/01/2025 12:30 PM EST Appointment [facility] [place] [address] Maxx Khan MD [address] [place] [address] [place] [address] 05/04/2025 8:15 AM EST Appointment [facility] [place], [place] [id number] 05/04/2025 8:45 AM EST Appointment [facility] [place] [address] Maxx Khan MD 1 [facility] [address] 05/04/2025 9:00 AM EST Appointment [facility] [place] [place], [place] [id number] 05/28/2025 10:30 AM EST Appointment [facility] [address] [place], [place] [address] Maxx Khan MD 1 [facility] [place] [address] 06/26/2025 10:15 AM EST Appointment [facility] RAD ONC [place], [place] [phone] Consuelo Ugarte APRN 1 [facility] [place] [address] documented as of this encounter Goals Goal Patient Goal Type Associated Problems Recent Progress Patient-Stated? Author Breast Health Breast Health Yenni Funk, RN Note: Patient acknowledges understanding of new diagnosis, plan of care, available resources and how to contact Nurse Navigator with any future questions or concerns. documented as of this encounter Procedures Procedure Name Priority Date/Time Associated Diagnosis Comments RADIATION TREATMENT SUMMARY Routine 03/18/2025 2:07 PM EST documented in this encounter Results * RADIATION TREATMENT SUMMARY (03/18/2025 2:07 PM EST) Course ID C1 ARIA Course Start Date 02/25/2025 2:59:00 PM [facility] Primary Oncologist Bhavesh Poole Session Number 3 ARIA Treatment Date_Time 03/18/2025 2:07:39 PM ARIA Treatment Elapsed Days 2 ARIA Fractions Treated 9 ARIA Reference Point ID Iso_pnt_L1- L3 ARIA Dosage Given to Date in Gy 12.30620788 ARIA Session Dosage Given in Gy 4.89862709 ARIA Reference Point ID Iso_pnt_RtF emur ARIA Dosage Given to Date in Gy 12.17408422 ARIA Session Dosage Given in Gy 4.43125113 ARIA Reference Point ID Iso_pnt_T5 ARIA Dosage Given to Date in Gy 12.20884767 ARIA Session Dosage Given in Gy 4.71559965 ARIA Reference Point ID Ref_pnt_L1- L3 ARIA Dosage Given to Date in Gy 12 ARIA Session Dosage Given in Gy 4 ARIA Reference Point ID Ref_pnt_RtF emur ARIA Dosage Given to Date in Gy 12 ARIA Session Dosage Given in Gy 4 ARIA Reference Point ID Ref_pnt_T5 ARIA Dosage Given to Date in Gy 12 ARIA Session Dosage Given in Gy 4 ARIA Plan ID L1-L3_Spine ARIA Plan Name L1-L3_Spine ARIA Fractions Treated to Date 3 ARIA Prescribed Dose Per Fraction in Gy 4 ARIA Prescribed Dose in cGY 2,000 ARIA Site Being Treated Extremity-R tFemur ARIA Site Being Treated Spinal Cord-L1-L3 ARIA Site Being Treated Spinal Cord-T5 ARIA 03/18/2025 2:07 PM EST us Bhavesh Poole MD RADIATION ONCOLOGY ORDERABLES Fi nal Result Performing Organization Address City/State/[facility] Co de Phone Number ARI [address] [facility] [place] [address] documented in this encounter Visit Diagnoses Not on filedocumented in this encounter Care Teams Foot Worker Relationship Specialty Start Date End Date Idania Cobb RN Oncology Nurse Navigator 01/22/25 Maxx Khan MD 1 [facility] [address] Medical Oncologist Internal Medicine-Medical Oncology 02/18/25 Obdulia Mazariegos, ANTHONY Registered Nurse 02/18/25 Bhavesh Poole MD 1 [place] [address] Radiation Oncologist Radiology-Radiation Oncology 02/24/25 Elena Buck, Clerical Staff Financial Counselor 02/27/25 documented as of this encounter
--- OUTSIDE RECORDS SUMMARY | 2025-04-22 04:55 | XMS_ITS | Encounter Summary ---
Author Organization [place] [address] Care Team Providers Care Major Gifts Director Name Role Phone Idania Cobb RN Unavailable Maxx Khan MD Unavailable [phone] Obdulia Mazariegos RN Unavailable Unavailable Bhavesh Poole MD Unavailable Elena Buck Clerical Staff Unavailable Encounter Details Date Type Department Care Team (Late st Contact Info) Description 03/16/2025 Orders Only [facility] [place] [address] Esperanza Monsalve APRN [address] [place] [address] Acute cystitis with hematuria (Primary Dx) Social History Tobacco Use Types Packs/Day Years [...] on file documented as of this encounter Ordered Prescriptions Prescription Sig Dispense Quantity Refills Last Filled Start Date End Date levoFLOXacin (LEVAQUIN) 750 mg Oral TabletIndications: Acute cystitis with hematuria Take 1 Tablet by mouth daily for 7 days. 7 Tablet 03/16/2025 03/23/2025 documented in this encounter Progress Notes * Esperanza Monsalve APRN - 03/16/2025 2:15 PM EST Patient reached out to clinic RN stating felt as if coming down with bladder infection. No reports of fever, nausea and vomiting. Declined labs today but agreeable to UA and cx. UA positive and in light of absolute neutropenia noted last week at tox check, discussed with pharmacy and will rx Levaquin 750 mg PO daily for seven days. If fever, chills, or progressive symptoms would recommend repeat labs and blood cultures. Clinic RN to follow up with pt. documented in this encounter Plan of Treatment Upcoming Encounters Date Type Department Care Team (Late st Contact Info) Description 05/01/2025 12:30 PM EST Appointment [facility] [place] [address] Maxx Khan MD [address] [facility] [address] [place] [id number] 05/04/2025 8:15 AM EST Appointment [place] [address] 05/04/2025 8:45 AM EST [facility]ointment [facility] [place] [address] Maxx Khan MD [address] [facility] [address] [place] [facility] 05/04/2025 9:00 AM EST Appointment [facility] [place], [place] [id number] 05/28/2025 10:30 AM EST Appointment [facility] [place] [address] Maxx Khan MD [address] [facility] [place] [address] 06/26/2025 10:15 AM EST Appointment [facility] [place] [place] [address] Consuelo Ugarte APRN [address] [place] [address] [place] [address] documented as of this encounter Goals Goal Patient Goal Type Associated Problems Recent Progress Patient-Stated? Author Breast Health Breast Health Yenni Funk, RN Note: Patient acknowledges understanding of new diagnosis, plan of care, available resources and how to contact Nurse Navigator with any future questions or concerns. documented as of this encounter Visit Diagnoses Diagnosis Acute cystitis with hematuria- Primary Acute cystitis documented in this encounter Care Teams Major Gifts Director Relationship Specialty Start Date End Date Idania Cobb RN Oncology Nurse Navigator 01/22/25 Maxx Khan MD 1 [facility] [place] [address] Medical Oncologist Internal Medicine-Medical Oncology 02/18/25 Obdulia Mazariegos, ANTHONY Registered Nurse 02/18/25 Bhavesh Poole MD 1 [place] [address] Radiation Oncologist Radiology-Radiation Oncology 02/24/25 Elena Buck, Clerical Staff Financial Counselor 02/27/25 documented as of this encounter
--- OUTSIDE RECORDS SUMMARY | 2025-04-22 04:55 | XMS_ITS | Encounter Summary ---
Author Organization [place] [address] Care Team Providers Care Assembler Tractor Name Role Phone Idania Cobb RN Unavailable Maxx Khan MD Unavailable [phone] Obdulia Mazariegos RN Unavailable Unavailable Bhavesh Poole MD Unavailable Elena Buck Clerical Staff Unavailable Encounter Details Date Type Department Care Team (Late st Contact Info) Description 03/16/2025 Orders Only [facility] [place] [address] Bhavesh Poole MD [address] [place], [place] [id number] Social History Tobacco Use Types Packs/Day Years [...] 12:30 PM EST Appointment [facility] [place] [id number] Maxx Khan MD [address] [place] [address] [place] [address] 05/04/2025 8:15 AM EST Appointment [facility] [place], [place] [id number] 05/04/2025 8:45 AM EST [facility]ointment [facility] [place] [address] Maxx Khan MD 1 [facility] [place] [address] 05/04/2025 9:00 AM EST Appointment [facility] [place], [place] [id number] 05/28/2025 10:30 AM EST Appointment [facility] [address] [place], [place] [id number] Maxx Khan MD 1 [facility] [place] [address] 06/26/2025 10:15 AM EST Appointment [place] [address] Consuelo Ugarte APRN [address] [place] [address] [place] [address] documented as of this encounter Goals Goal [...] Associated Diagnosis Comments RADIATION TREATMENT SUMMARY Routine 03/16/2025 12:01 PM EST documented in this encounter Results * RADIATION TREATMENT SUMMARY (03/16/2025 12:01 PM EST) Course ID C1 ARIA Course Start Date 02/25/2025 2:59:00 PM RAFFI Primary Oncologist Bhavesh Poole Session Number 1 CARINEA Treatment Date_Time 03/16/2025 12:01:52 PM ARIA Treatment Elapsed Days 0 ARIA Fractions Treated 3 ARIA Reference Point ID Iso_pnt_L1- L3 ARIA Dosage Given to Date in Gy [id number] ARIA Session Dosage Given in Gy [id number] ARIA Reference Point ID Iso_pnt_RtF emur ARIA Dosage Given to Date in Gy 4.42919549 ARIA Session Dosage Given in Gy 4.96334422 ARIA Reference Point ID Iso_pnt_T5 ARIA Dosage Given to Date in Gy 4.60139673 ARIA Session Dosage Given in Gy 4.81699787 ARIA Reference Point ID Ref_pnt_L1- L3 ARIA Dosage Given to Date in Gy 4 ARIA Session Dosage Given in Gy 4 ARIA Reference Point ID Ref_pnt_RtF emur ARIA Dosage Given to Date in Gy 4 ARIA Session Dosage Given in Gy 4 ARIA Reference Point ID Ref_pnt_T5 ARIA Dosage Given to Date in Gy 4 ARIA Session Dosage Given in Gy 4 ARIA Plan ID L1-L3_Spine ARIA Plan Name L1-L3_Spine ARIA Fractions Treated to Date 1 ARIA Prescribed Dose Per Fraction in Gy 4 ARIA Prescribed Dose in cGY 2,000 ARIA Site Being Treated Extremity-R tFemur ARIA Site Being Treated Spinal Cord-L1-L3 ARIA Site Being Treated Spinal Cord-T5 ARIA 03/16/2025 12:0 1 PM EST us Bhavesh Poole MD RADIATION ONCOLOGY ORDERABLES Fi nal Result Performing Organization Address City/State/[facility] Co de Phone Number ARIA [address] [facility] [place] [address] documented in this encounter Visit Diagnoses Not on filedocumented in this encounter Care Teams Assembler Tractor Relationship Specialty Start Date End Date Idania Cobb RN Oncology Nurse Navigator 01/22/25 Maxx Khan MD [address] [facility] [place] [address] Medical Oncologist Internal Medicine-Medical Oncology 02/18/25 Obdulia Mazariegos, ANTHONY Registered Nurse 02/18/25 Bhavesh Poole MD 1 [place] [address] Radiation Oncologist Radiology-Radiation Oncology 02/24/25 Elena Buck, Clerical Staff Financial Counselor 02/27/25 documented as of this encounter
--- OUTSIDE RECORDS SUMMARY | 2025-04-22 04:55 | XMS_ITS | Encounter Summary ---
Author Organization [place] [address] Care Team Providers Care Timber Grader Name Role Phone Idania Cobb RN Unavailable Maxx Khan MD Unavailable [phone] Obdulia Mazariegos RN Unavailable Unavailable Bhavesh Poole MD Unavailable Elena Buck Clerical Staff Unavailable Encounter Details Date Type Department Care Team (Late st Contact Info) Description 03/17/2025 Orders Only [facility] Cancer Care [facility] [place] [address] Bhavesh Poole MD [address] [place], [place] [phone] Social History Tobacco Use Types Packs/Day Years [...] Info) Description 05/01/2025 12:30 PM EST Appointment [facility] [place] [id number] Maxx Khan MD [address] [place] [address] [facility] [place] [place] [address] 05/04/2025 8:15 AM EST Appointment [facility] [place], [place] [id number] 05/04/2025 8:45 AM EST Appointment [facility] [place] [address] Maxx Khan MD 1 [facility] [address] 05/04/2025 9:00 AM EST Appointment [facility] [place], [place] [id number] 05/28/2025 10:30 AM EST Appointment [facility] [address] [place], [place] [phone] Maxx Khan MD 1 [facility] [place] [address] 06/26/2025 10:15 AM EST Appointment [facility] ONC [place], [place] [phone] Consuelo Ugarte APRN 1 [facility] [address] documented as of this encounter Goals Goal [...] Associated Diagnosis Comments RADIATION TREATMENT SUMMARY Routine 03/17/2025 12:31 PM EST documented in this encounter Results * RADIATION TREATMENT SUMMARY (03/17/2025 12:31 PM EST) Course ID C1 ARIA Course Start Date 02/25/2025 2:59:00 PM CARINEA Primary Oncologist Bhavesh Poole Session Number 2 ARIA Treatment Date_Time 03/17/2025 12:31:51 PM ARIA Treatment Elapsed Days 1 ARIA Fractions Treated 6 ARIA Reference Point ID Iso_pnt_L1- L3 ARIA Dosage Given to Date in Gy 8.67696134 ARIA Session Dosage Given in Gy 4.66834464 ARIA Reference Point ID Iso_pnt_RtF emur ARIA Dosage Given to Date in Gy 8.31977710 ARIA Session Dosage Given in Gy 4.85949139 ARIA Reference Point ID Iso_pnt_T5 ARIA Dosage Given to Date in Gy 8.55615338 ARIA Session Dosage Given in Gy 4.01929502 ARIA Reference Point ID Ref_pnt_L1- L3 ARIA Dosage Given to Date in Gy 8 ARIA Session Dosage Given in Gy 4 ARIA Reference Point ID Ref_pnt_RtF emur ARIA Dosage Given to Date in Gy 8 ARIA Session Dosage Given in Gy 4 ARIA Reference Point ID Ref_pnt_T5 ARIA Dosage Given to Date in Gy 8 ARIA Session Dosage Given in Gy 4 ARIA Plan ID L1-L3_Spine ARIA Plan Name L1-L3_Spine ARIA Fractions Treated to Date 2 ARIA Prescribed Dose Per Fraction in Gy 4 ARIA Prescribed Dose in cGY 2,000 ARIA Site Being Treated Extremity-R tFemur ARIA Site Being Treated Spinal Cord-L1-L3 ARIA Site Being Treated Spinal Cord-T5 ARIA 03/17/2025 12:3 1 PM EST us Bhavesh Poole MD RADIATION ONCOLOGY ORDERABLES Fi nal Result Performing Organization Address City/State/[facility] Co de Phone Number ARI [address] [facility] [place] [address] documented in this encounter Visit Diagnoses Not on filedocumented in this encounter Care Teams Timber Grader Relationship Specialty Start Date End Date Idania Cobb RN Oncology Nurse Navigator 01/22/25 Maxx Khan MD [address] [facility] [address] Medical Oncologist Internal Medicine-Medical Oncology 02/18/25 Obdulia Mazariegos, ANTHONY Registered Nurse 02/18/25 Bhavesh Poole MD 1 [place] [address] Radiation Oncologist Radiology-Radiation Oncology 02/24/25 Elena Buck, Clerical Staff Financial Counselor 02/27/25 documented as of this encounter
--- OUTSIDE RECORDS SUMMARY | 2025-04-22 04:55 | XMS_ITS | Encounter Summary ---
Author Organization [place] [address] Care Team Providers Care Associate Software Development Engineer Name Role Phone Idania Cobb RN Unavailable Maxx Khan MD Unavailable [phone] Obdulia Monet RN Unavailable Unavailable Bhavesh Poole MD Unavailable Elena Buck Clerical Staff Unavailable Encounter Details Date Type Department Care Team (Late st Contact Info) Description 03/16/2025 Orders Only [facility] [place] [address] Maxx Khan MD [address] [place] [phone] Invasive ductal carcinoma of breast, female, right (HCC) (Primary Dx) Social History Tobacco Use Types [...] on file documented as of this encounter Miscellaneous Notes * Addendum Note - Obdulia Monet RN - 03/16/2025 2:21 PM ESTAddended by: OBDULIA MONET on: 03/16/2025 02:23 PM Modules accepted: Orders documented in this encounter Plan of Treatment Upcoming Encounters Date Type Department Care Team (Late st Contact Info) Description 05/01/2025 12:30 PM EST Appointment [facility] [place] [address] Maxx Khna MD 1 [facility] [place] [address] 05/04/2025 8:15 AM EST Appointment [facility] [place], [place] [id number] 05/04/2025 8:45 AM EST Appointment [facility] [place] [address] Maxx Khan MD [address] [place] [address] [place] [address] 05/04/2025 9:00 AM EST Appointment [facility] [place], [place] [phone] 05/28/2025 10:30 AM EST Appointment [facility] [place] [address] Maxx Khan MD [address] [place] [address] [place] [address] 06/26/2025 10:15 AM EST Appointment [facility] [place] [address] Consuelo Ugarte APRN 1 [facility] [place] [address] documented as of this encounter Goals Goal Patient Goal Type Associated Problems Recent Progress Patient-Stated? Author Breast Health Breast Health Yenni Funk, RN Note: Patient acknowledges understanding of new diagnosis, plan of care, available resources and how to contact Nurse Navigator with any future questions or concerns. documented as of this encounter Results * (ABNORMAL) COMPREHENSIVE METABOLIC PANEL (03/17/2025 11:52 AM EST) Sodium 142 136 - 145 mmol/L 03/17/2025 12:15 PM [facility] Potassium 3.3(L) 3.5 - 5.0 mmol/L 03/17/2025 12:15 PM [facility] Chloride 107 98 - 107 mmol/L 03/17/2025 12:15 PM [facility] Total CO2 22 22 - 29 mmol/L 03/17/2025 12:15 PM [facility] Anion Gap 13 7 - 16 mmol/L 03/17/2025 12:15 PM [facility] Calcium 8.8 8.8 - 10.4 mg/dL 03/17/2025 12:15 PM [facility] Glucose Lvl 128(H) 70 - 99 mg/dL 03/17/2025 12:15 PM [facility] BUN 12 8 - 23 mg/dL 03/17/2025 12:15 PM [facility] Creatinine 0.66 0.51 - 1.30 mg/dL 03/17/2025 12:15 PM [facility] Albumin 3.4 3.2 - 4.6 gm/dL 03/17/2025 12:15 PM [facility] Total Protein 6.4 6.4 - 8.3 gm/dL 03/17/2025 12:15 PM [facility] Bili Total 0.3 0.2 - 1.3 mg/dL 03/17/2025 12:15 PM [facility] ALT 33 <=41 U/L 03/17/2025 12:15 PM [facility] AST 18 <=40 U/L 03/17/2025 12:15 PM [facility] Alk Phos 126(H) 36 - 123 U/L 03/17/2025 12:15 PM [facility] eGFR (CKD-EPIcr 2020) 97 >=60 mL/min/1.7 3 m2 03/17/2025 12:15 PM [facility] Comment:Estimated GFR was ca lculated using the CKD-EPIcr (2020) equation refit without race. The equation is recommended by the National Kid[employer] - [place] [employer] Nephrology Task Force. Blood VENOUS STRUCTURE / Unknown Port / Unknown 03/17/2025 11:52 AM EST 03/17/2025 11:57 AM EST us Maxx Khan MD CHEMISTRY ORDERABLES Final Res ult [facility] 1 [place] [address] * (ABNORMAL) CBC WITH DIFF (03/17/2025 11:52 AM EST) WBC 9.8 3.7 - 10.3 x10(3)/mc L 03/17/2025 12:33 PM EST [facility] RBC 3.96 3.90 - 5.20 x10(6)/mc L 03/17/2025 12:33 PM EST [facility] Hgb 11.6 11.2 - 15.7 g/dL 03/17/2025 12:33 PM EST [facility] Hct 34.4 34.0 - 45.0 % 03/17/2025 12:33 PM EST [facility] MCV 86.9 80.0 - 100.0 fL 03/17/2025 12:33 PM EST [facility] MCH 29.3 26.0 - 34.0 pg 03/17/2025 12:33 PM EST [facility] MCHC 33.7 30.7 - 35.5 g/dL 03/17/2025 12:33 PM EST [facility] RDW 13.1 <=14.9 % 03/17/2025 12:33 PM EST [facility] Platelet 269 155 - 369 x10(3)/mc L 03/17/2025 12:33 PM EST [facility] MPV 8.4(L) 8.8 - 12.5 fL 03/17/2025 12:33 PM EST [facility] Segs 72 % 03/17/2025 12:33 PM [...] 12:33 PM EST [facility] [place] # 0.6 0.3 - 0.9 x10(3)/mc L [...] 12:33 PM EST [facility] [place] Cell Occasional 03/17/2025 12:33 PM EST [facility] Blood VENOUS STRUCTURE / Unknown Port / Unknown 03/17/2025 11:52 AM EST 03/17/2025 11:57 AM EST us Maxx Khan MD HEMATOLOGY ORDERABLES Final Re sult [facility] 1 [facility] [place] [address] [place] [address] [place] [address] documented in this encounter Visit Diagnoses Diagnosis Invasive ductal carcinoma of breast, female, right (HCC)- Primary documented in this encounter Care Teams Associate Software Development Engineer Relationship Specialty Start Date End Date Idania Cobb, RN Oncology Nurse Navigator 01/22/25 Maxx Khan MD [address] [place] [address] Medical Oncologist Internal Medicine-Medical Oncology 02/18/25 Obdulia Monet, ANTHONY Registered Nurse 02/18/25 Bhavesh Poole MD [address] [place] [address] Radiation Oncologist Radiology-Radiation Oncology 02/24/25 Elena Buck, Clerical Staff Financial Counselor 02/27/25 documented as of this encounter
--- OUTSIDE RECORDS SUMMARY | 2025-04-22 04:55 | XMS_ITS | Encounter Summary ---
Author Organization [place] [address] Care Team Providers Care Cement Railroad Car Loader Name Role Phone Idania Cobb RN Unavailable Maxx Khan MD Unavailable [phone] Obdulia Mazariegos RN Unavailable Unavailable Bhavesh Poole MD Unavailable Elena Buck Clerical Staff Unavailable Reason for Visit * Reason Onset Date Comments Symptom Call 03/16/2025 Burning when uri nates, backache (started 03/14) Encounter Details Date Type Department Care Team (Late st Contact Info) Description 03/16/2025 Telephone Cancer Care Medical Oncology [place] [id number] Maxx Khan MD [address] [place], [place] [id number] Symptom Call (Burning when urinates, backache (started 03/14)) Social History Tobacco Use Types Packs/Day Years [...] encounter Miscellaneous Notes * Telephone Encounter - Obdulia Mazariegos RN - 03/16/2025 2:24 PM EST Patient's UA resulted. Levaquin 750 mg PO daily for seven days called in per provider to O[facility] Black[facility]. Called patient to notify. Will have labs collected tomorrow. Lab appointment made for 11:45. * Telephone Encounter - Obdulia Mazariegos RN - 03/16/2025 12:53 PM EST Specimen collected. Will notify patient of results when they are back. * Telephone Encounter - Obdulia Mazariegos RN - 03/16/2025 8:57 AM EST Called and spoke with patient. She states that she feels as though she's starting to have a bladderinfection or UTI. Patient will be coming for radiation at ED later this morning. Will plan to get a urine sample while she's here. She also mentioned that her nose, when she blows it, has blood in it. We discussed that her counts were really low last time so that can play a part. Offered to have labs drawn today while she's here. Patient declined. Discussed that if she changes her mind we can always check it another day this week. Patient verbalized understanding. * Telephone Encounter - Sabrina Kramer, Clerical Staff - 03/16/2025 8:13 AM EST Medical Oncology Clinic Symptom Call: Yes Primary Oncologist: Dr Khan Diagnoses: Current Treatment: Last date of Tx: 03/02 Last appt and provider: 03/09Bello Next scheduled office visit: 03/23 Caller reports the patient has the following symptoms:Burning when she urinates, backache, the pressure to urinate. Gives no other symptoms. Symptoms started (date/time):03/14 Have you been exposed to COVID or tested for COVID within the last 48 hours:No Does the patient have a FEVER/what is it:No Has the patient had any recent surgeries:No Has the patient taken anything to help the symptoms:No MYCHART Photo (Y, N, N/A): No What Location is the Patient seen at:[facility] Preferred call back number:[phone] documented in this encounter Plan of Treatment Upcoming Encounters Date Type Department Care Team (Late st Contact Info) Description 05/01/2025 12:30 PM EST Appointment [facility] [place] [address] Maxx Khan MD [address] [place] [address] [place] [address] 05/04/2025 8:15 AM EST Appointment [facility] [place], [place] [id number] 05/04/2025 8:45 AM EST [facility] [place] [address] Maxx Khan MD [address] [place] [address] [place] [address] 05/04/2025 9:00 AM EST Appointment [facility] [place], [place] [id number] 05/28/2025 10:30 AM EST Appointment [facility] [place] [address] Maxx Khan MD [address] [place] [address] [place] [address] 06/26/2025 10:15 AM EST Appointment [facility] [place] [address] Consuelo Ugarte APRN [address] [place] [address] [place] [address] documented as of this encounter Goals Goal Patient Goal Type Associated Problems Recent Progress Patient-Stated? Author Breast Health Breast Health Yenni Funk, RN Note: Patient acknowledges understanding of new diagnosis, plan of care, available resources and how to contact Nurse Navigator with any future questions or concerns. documented as of this encounter Procedures Procedure Name Priority Date/Time Associated Diagnosis Comments URINALYSIS REFLEX Routine 03/16/2025 12: 27 PM EST Acute low back pain without sciatica, unspecified back pain laterality Burning with urination UA W/REFLEX TO CULTURE Routine 03/16/2025 12:27 PM EST Acute low back pain without sciatica, unspecified back pain laterality Burning with urination URINE CULTURE (NO STAIN) Routine 03/16/2025 12:27 PM EST Acute low back pain without sciatica, unspecified back pain laterality Burning with urination documented in this encounter Results * (ABNORMAL) URINE CULTURE (NO STAIN) (03/16/2025 12:27 PM EST) Culture Positive Growth(A) 03/18/2025 10:20 AM EST [facility] Culture >100,000 CFU/mL Escherichia coli SUSCEPTIBI LITY RESULT 03/18/2025 10:20 AM EST Complex Media Urine STRUCTURE OF URINARY TRACT PROPER / Unknown 03/16/2025 12:27 PM EST 03/16/2025 12:58 PM EST Narrative Organism Antibiotic Method Susceptibility Escherichia coli Amikacin SUSCEPTIBILITY RESULT Escherichia coli Amoxicillin/Clavulanate SUSCEPTIBILIT Y RESULT <=8/4 ug/mL: Susceptible Escherichia coli Ampicillin SUSCEPTIBILITY RESULT <=8 ug/mL: Susceptible Escherichia coli Ampicillin/Sulbactam SUSCEPTIBILITY R ESULT <=4/2 ug/mL: Susceptible Escherichia coli Aztreonam SUSCEPTIBILITY RESULT <=4 ug/mL: Susceptible Escherichia coli Cefazolin SUSCEPTIBILITY RESULT <=2 ug/mL: Susceptible Escherichia coli Cefepime SUSCEPTIBILITY RESULT Escherichia coli Cefotaxime SUSCEPTIBILITY RESULT Escherichia coli Cefoxitin SUSCEPTIBILITY RESULT <=8 ug/mL: Susceptible Escherichia coli Ceftazidime SUSCEPTIBILITY RESULT Escherichia coli Ceftazidime/Avibactam SUSCEPTIBILITY RESULT Escherichia coli Ceftolozane/Tazobactam SUSCEPTIBILITY RESULT Escherichia coli Ceftriaxone SUSCEPTIBILITY RESULT Escherichia coli Cefuroxime SUSCEPTIBILITY RESULT Escherichia coli Ciprofloxacin SUSCEPTIBILITY RESULT <=0.25 ug/mL: Susceptible Escherichia coli Ertapenem SUSCEPTIBILITY RESULT <=0.5 ug/mL: Susceptible Escherichia coli Gentamicin SUSCEPTIBILITY RESULT <=2 ug/mL: Susceptible Escherichia coli Imipenem SUSCEPTIBILITY RESULT <=1 ug/mL: Susceptible Escherichia coli Levofloxacin SUSCEPTIBILITY RESULT <=0.5 ug/mL: Susceptible Escherichia coli Meropenem SUSCEPTIBILITY RESULT <=1 ug/mL: Susceptible Escherichia coli Meropenem/Vaborbactam SUSCEPTIBILITY RESULT Escherichia coli Minocycline SUSCEPTIBILITY RESULT Escherichia coli Moxifloxacin SUSCEPTIBILITY RESULT Escherichia coli Nitrofurantoin SUSCEPTIBILITY RESULT <=32 ug/mL: Susceptible Escherichia coli Piperacillin/Tazobactam SUSCEPTIBILIT Y RESULT <=8 ug/mL: Susceptible Escherichia coli Tetracycline SUSCEPTIBILITY RESULT <=4 ug/mL: Susceptible Escherichia coli Tigecycline SUSCEPTIBILITY RESULT Escherichia coli Tobramycin SUSCEPTIBILITY RESULT <=2 ug/mL: Susceptible Escherichia coli Trimethoprim/Sulfame tho xazole SUSCEPTIBILITY RESULT <=0.5/9.5 ug/mL: Susceptible Esperanza Monsalve ZIPPER JOINER MICROBIOLOGY - GENERAL ORDERAB LES Final Result [facility] [address] [facility] , [place] [address] * (ABNORMAL) URINALYSIS REFLEX (03/16/2025 12:27 PM EST) UA Color Yellow 03/16/2025 12:58 PM EST [facility] UA Appear Turbid(A) Clear 03/16/2025 12:58 PM EST [facility] UA Glucose Negative Negative mg/dL 03/16/2025 12:58 PM EST [facility] UA Ketones Negative Negative mg/dL 03/16/2025 12:58 PM EST [facility] UA Blood 1+ (0.06 - 0.1 mg/dL)(A) Negative 03/16/2025 12:58 PM EST [facility] UA pH 6.5 5.0 - 8.0 pH 03/16/2025 12:58 PM EST [facility] UA Protein 1+ (30-70 mg/dL)(A) Negative mg/dL 03/16/2025 12:58 PM EST [facility] UA Urobilinogen Normal <=1 mg/dL 12:58 PM EST [facility] UA Bili Negative Negative 03/16/2025 12:58 PM EST [facility] UA Nitrite Positive(A) Negative 03/16/2025 12:58 PM EST [facility] UA Leuk Est 4+ (500 Mare/mcl)(A) Negative 03/16/2025 12:58 PM EST [facility] UA Spec Grav 1.011 1.001 - 1.035 no units 03/16/2025 12:58 PM EST [facility] Comment:Reference range consuelo d for random specimens only. UA WBC >182(H) 0 - 4 /HPF 03/16/2025 12:58 PM EST [facility] UA RBC 60(H) 0 - 3 /HPF 03/16/2025 12:58 PM EST [facility] UA Squam Epi 4+ /LPF 03/16/2025 12:58 PM EST [facility] UA Mucus 1+ /LPF 03/16/2025 12:58 PM EST [facility] UA Bacteria 2+(A) Negative /HPF 03/16/2025 12:58 PM EST [facility] Urine STRUCTURE OF URINARY TRACT PROPER / Unknown 03/16/2025 12:27 PM EST 03/16/2025 12:37 PM EST Esperanza Monsalve ZIPPER JOINER URINE ORDERABLES Final Result [facility] [address] [facility] , [place] [address] documented in this encounter Visit Diagnoses Diagnosis Acute low back pain without sciatica, unspecified back pain laterality- Primary Burning with urination Dysuria documented in this encounter Care Teams Cement Railroad Car Loader Relationship Specialty Start Date End Date Idania Cobb RN Oncology Nurse Navigator 01/22/25 Maxx Khan MD [address] [place] [address] Medical Oncologist Internal Medicine-Medical Oncology 02/18/25 Obdulia Mazariegos, RN Registered Nurse 02/18/25 Bhavesh Poole MD 1 [place] [address] Radiation Oncologist Radiology-Radiation Oncology 02/24/25 Elena Buck, Clerical Staff Financial Counselor 02/27/25 documented as of this encounter
--- OUTSIDE RECORDS SUMMARY | 2025-04-22 04:55 | XMS_ITS | Encounter Summary ---
Author Organization [place] [address] Care Team Providers Care Supervisor Network Control Operators Name Role Phone Idania Cobb RN Unavailable Maxx Khan MD Unavailable [phone] Obdulia Mazariegos RN Unavailable Unavailable Bhavesh Poole MD Unavailable Elena Buck Clerical Staff Unavailable Ankush Jean RN Unavailable Unavailable Encounter Details Date Type Department Care Team (Late st Contact Info) Description 03/18/2025 Results Follow-Up Cancer Care Medical Oncology [place] [phone] Esperanza Monsalve APRN [address] [place], [place] [address] URINALYSIS REFLEX, EXTRA DELGADO URINE CX, URINE CULTURE (NO STAIN) Social History Tobacco Use Types Packs/Day Years [...] Description 05/01/2025 12:30 PM EST Appointment [facility] [place] [phone] Maxx Khan MD [address] [facility] [address] [place] [id number] 05/04/2025 8:15 AM EST Appointment [facility] [place], [place] [id number] 05/04/2025 8:45 AM EST Appointment [facility] [place], [place] [id number] Maxx Khan MD [address] [facility] [address] [place], [place] [id number] 05/04/2025 9:00 AM EST Appointment [facility] [place], [place] [id number] 05/28/2025 10:30 AM EST Appointment [facility] [place] [address] Maxx Khan MD [address] [place] [address] 06/26/2025 10:15 AM EST Appointment [place] [address] Consuelo Ugarte APRN [address] [place] [address] [place] [address] documented as of this encounter Goals Goal Patient Goal Type Associated Problems Recent Progress Patient-Stated? Author Breast Health Breast Health Yenni Funk RN Note: Patient acknowledges understanding of new diagnosis, plan of care, available resources and how to contact Nurse Navigator with any future questions or concerns. documented as of this encounter Visit Diagnoses Not on filedocumented in this encounter Care Teams Supervisor Network Control Operators Relationship Specialty Start Date End Date Idania Cobb, ANTHONY Oncology Nurse Navigator 01/22/25 Maxx Khan MD [address] [place] [address] Medical Oncologist Internal Medicine-Medical Oncology 02/18/25 Obdulia Mazariegos, RN Registered Nurse 02/18/25 Bhavesh Poole MD 1 [place] [address] Radiation Oncologist Radiology-Radiation Oncology 02/24/25 Elena Buck, Clerical Staff Financial Counselor 02/27/25 Ankush Jean, ANTHONY Registered Nurse Infusion Therapy 03/23/25 03/23/25 documented as of this encounter
--- OUTSIDE RECORDS SUMMARY | 2025-04-22 04:55 | XMS_ITS | Patient Health Record ---
Author Organization [facility] Address [address] [facility] [address] [facility] [address] [place] [id number] Care Team Providers Care Agr[employer] Internship Name Role Phone Wilson Leahy Unavailable [phone] Allergies No Known Allergies Results Component Value Reference Range Notes Urinalysis - Inhouse Reviewed date:04/08/2025 03:39:05 PM Interpretation: Performing Lab: Notes/Report: Color/Clarity Yellow/Cloudy Leuk 3+ Nitrite Pos Urobili 3.2 Protein 2+ pH 6.0 Blood 2+ Sp. Gr. 1.020 Ketone Neg Bili Neg Gluc Neg P-Comprehensive Metabolic Pa alexey (CMP) Reviewed date:01/13/2025 12:35:44 PM Interpretation:cl 109, gluc 104 Performing Lab: Notes/Report: Test performed by [facility] [address] [place] [address] , [address], [place] [address] Jigar Darling MD, Legal Document Assistant CLIA: [id number] Sodium 144 135-145 mmol/L Potassium 4.1 3.5-5.3 [...] 145 Performing Lab: Notes/Report: Test performed by [facility], [address] , [address], [place] [address] Jigar Darling MD, Legal Document Assistant CLIA: [id number] Cholesterol 194 <200 mg/dL Triglycerides 168 <150 [...] % Change: +7% LDL Cholesterol Patient History Urinalysis - Inhouse Reviewed date:02/05/2025 12:08:10 PM Interpretation: Performing Lab: Notes/Report: Color/Clarity cloudy yellow Leuk 3+ Nitrite pos Urobili 3.2 Protein 2+ pH 7.0 Blood 1+ Sp. Gr. 1.020 Ketone neg Bili neg Gluc neg Reason For Referral No Information Medications Medication SIG (Take, Route, Frequency, Duration) [...] W/U Status Risk Notes Problem Abnormal mammogram (009254469) Abnormal mammogram (R92.8) Active confirmed Problem Hyperlipidemia (36248850) Hyperlipidemia LDL goal <130 (E78.5) Active confirmed Problem Atrial fibrillation (28661303) Atrial fibrillation, unspecified type (I48.91) Active confirmed Problem Primary hypertension (56112395) Primary hypertension (I10) Active confirmed Vital Signs Heart Rate 110 /min 04/08/2025 Blood pressure diastolic 84 mm Hg 04/08/2025 Height 64 in 04/08/2025 Blood pressure systolic 150 mm Hg 04/08/2025 Weight 227.4 lbs 04/08/2025 BMI 39.03 kg/m2 04/08/2025 Encounters Encounter Location Date Provider Diagnosis [place] [address] [facility] [address] [place] [id number] 07/16/2024 [place] Primary hypertension I10 ; Hyperlipidemia LDL goal <130 E78.5 ; Atrial fibrillation, unspecified type I48.91 and Snoring R06.83 [facility] [address] [facility] [address] [place] [id number] 01/12/2025 Wilson [place] Primary hypertension I10 ; Atrial fibrillation, unspecified type I48.91 ; Hyperlipidemia LDL goal <130 E78.5 and Abnormal mammogram R92.8 [facility] [address] [facility] [address] [place] [id number] 02/05/2025 Wilson [place] Acute UTI N39.0 [facility] [address] [facility] [address] [place] [id number] 04/08/2025 Wilson [place] Acute UTI N39.0 [facility] [address] [facility] [address] [place], [place] [id number] 01/13/2025 Wilson [place] Assessments Encounter Date Diagnosis (ICD Code) Assessment Notes Treatment Notes Treatment Clinical Notes Section Notes 07/16/2024 Hyperlipidemia LDL goal <130 (ICD-10 - E78.5) 01/12/2025 Atrial fibrillation, unspecified type (ICD-10 - I48.91) 01/12/2025 Primary hypertension (ICD-10 - I10) 02/05/2025 Acute UTI (ICD-10 - N39.0) 04/08/2025 Acute UTI (ICD-10 - N39.0) 07/16/2024 Primary hypertension (ICD-10 - I10) 01/12/2025 Hyperlipidemia LDL goal <130 (ICD-10 - E78.5) 07/16/2024 Atrial fibrillation, unspecified type (ICD-10 - I48.91) 07/16/2024 Snoring (ICD-10 - R06.83) Patient does not want to have a new sleep study now, would like to see report of previous study 01/12/2025 Abnormal mammogram (ICD-10 - R92.8) Patient has a breast biopsy scheduled at [facility] next week Plan Of Treatment Next Appt Details Provider Name:Wilson valente, 07/14/2025 09:00:00 AM, [address], [address], [place], [place], [id number], Medical (General) History Medical History History ICD Code Hypertension Atrial fibrillation, 2016, uses Aspirin for anticoagulation Hiatal Hernia, 08/2021 Fibroids kidney stones Renal Cell Cancer 25 pack year smoking history as of 2022, quit in 2012 hyperlipidemia osteoarthritis Breast cancer, right side, Dx: 2024, michael ated at [facility] Surgical History Surgery Date(Month/Year) Partial Nephrectomy Incisional Hernia Repair Colonoscopy
--- OUTSIDE RECORDS SUMMARY | 2025-04-22 04:56 | XMS_ITS | Encounter Summary ---
Author Organization [place] [address] Care Team Providers Care Recovery Specialist Name Role Phone Idania Cobb RN Unavailable Maxx Khan MD Unavailable [phone] Obdulia Mazariegos RN Unavailable Unavailable Bhavesh Poole MD Unavailable Elena Buck Clerical Staff Unavailable Encounter Details Date Type Department Care Team (Late st Contact Info) Description 03/05/2025 Orders Only [facility] [place] [address] Esperanza Monsalve APRN [address] [facility] [place] [address] Invasive ductal carcinoma of breast, [...] Appointment [facility] CT [place] [id number] Maxx Khan MD [address] [facility] [address] [place] [address] 05/04/2025 8:15 AM EST Appointment [facility] [place], [place] [id number] 05/04/2025 8:45 AM EST Appointment [facility] [place] [address] Maxx Khan MD [address] [facility] [address] [place], [place] [id number] 05/04/2025 9:00 AM EST Appointment [facility] [place], [place] [id number] 05/28/2025 10:30 AM EST Appointment [facility] [place] [address] Maxx Khan MD [address] [facility] [place] [address] 06/26/2025 10:15 AM EST Appointment [facility] RAD ONC [place], [place] [id number] Consuelo Ugarte APRN [address] [facility] [address] [place], [place] [id number] documented as of this encounter Goals Goal Patient Goal Type Associated Problems Recent Progress Patient-Stated? Author Breast [facility] Breast [facility] Yenni Funk, RN Note: Patient acknowledges understanding of new diagnosis, plan of care, available resources and how to contact Nurse Navigator with any future questions or concerns. documented as of this encounter Results * (ABNORMAL) COMPREHENSIVE METABOLIC PANEL (03/09/2025 1:32 PM EST) Sodium 139 136 - 145 mmol/L 03/09/2025 1:51 PM EST [facility] Potassium 4.2 3.5 - 5.0 mmol/L 03/09/2025 1:51 PM EST [facility] Chloride 106 98 - 107 mmol/L 03/09/2025 1:51 PM EST [facility] Total CO2 21(L) 22 - 29 mmol/L 03/09/2025 1:51 PM [facility] Anion Gap 12 7 - 16 mmol/L 03/09/2025 1:51 PM [facility] Calcium 8.9 8.8 - 10.4 mg/dL 03/09/2025 1:51 PM [facility] Glucose Lvl 122(H) 70 - 99 mg/dL 03/09/2025 1:51 PM EST [facility] BUN 20 8 - 23 mg/dL 03/09/2025 1:51 PM [facility] Creatinine 0.82 0.51 - 1.30 mg/dL 03/09/2025 1:51 PM [facility] Albumin 3.6 3.2 - 4.6 gm/dL 03/09/2025 1:51 PM [facility] Total Protein 6.2(L) 6.4 - 8.3 gm/dL 03/09/2025 1:51 PM [facility] Bili Total 0.4 0.2 - 1.3 mg/dL 03/09/2025 1:51 PM [facility] ALT 43(H) <=41 U/L 03/09/2025 1:51 PM [facility] AST 22 <=40 U/L 03/09/2025 1:51 PM [facility] Alk Phos 98 36 - 123 U/L 03/09/2025 1:51 PM [facility] eGFR (CKD-EPIcr 2020) 79 >=60 mL/min/1.7 3 m2 03/09/2025 1:51 PM [facility] Comment:Estimated GFR was ca lculated using the CKD-EPIcr (2020) equation refit without race. The equation is recommended by the National Kidney Foundation - [place] [employer] of Nephrology Task Force. Blood VENOUS STRUCTURE / Unknown Port / Unknown 03/09/2025 1:32 PM EST 03/09/2025 1:32 PM EST us Esperanza Monsalve MELTING OPERATOR CHEMISTRY ORDERABLES Final Res ult [address] [address] * (ABNORMAL) CBC WITH DIFF (03/09/2025 [...] 3:28 PM EST [facility] Terry # 0.2(L) 0.3 - 0.9 x10(3)/mc L [...] 03/09/2025 1:32 PM EST us Esperanza Monsalve MELTING OPERATOR HEMATOLOGY ORDERABLES Final Re sult [facility] [address] [facility] , [place] [address] documented in this encounter Visit Diagnoses Diagnosis Invasive ductal carcinoma of breast, female, right (HCC)- Primary documented in this encounter Care Teams Recovery Specialist Relationship Specialty Start Date End Date Idania Cobb RN Oncology Nurse Navigator 01/22/25 Maxx Khan MD [address] [facility] [place] [address] Medical Oncologist Internal Medicine-Medical Oncology 02/18/25 Obdulia Mazariegos, RN Registered Nurse 02/18/25 Bhavesh Poole MD 1 [place] [address] Radiation Oncologist Radiology-Radiation Oncology 02/24/25 Elena Buck, Clerical Staff Financial Counselor 02/27/25 documented as of this encounter
--- OUTSIDE RECORDS SUMMARY | 2025-04-22 04:56 | XMS_ITS | Encounter Summary ---
Author Organization [place] [address] Care Team Providers Care Licensed Plumber Name Role Phone Idania Cobb RN Unavailable Maxx Khan MD Unavailable [phone] Obdulia Mazariegos RN Unavailable Unavailable Bhavesh Poole MD Unavailable Elena Buck Clerical Staff Unavailable Ankush Jean RN Unavailable Unavailable Reason for Visit * Reason Comments Pharmacy Specialty Management Perjeta 42 0mg Encounter Details Date Type Department Care Team (Latest Contact Info) Description 03/03/2025 Specialty Pharmacy [facility] [address] [place] [address] Maxx Khan MD [address] [place] [address] Pharmacy Specialty Management (Perjeta 420mg) Social History Tobacco Use Types Packs/Day Years [...] on file documented as of this encounter Progress Notes * Peyton Raphael CPhT - 03/03/2025 10:55 AM EST [facility] Called [facility] to schedule delivery of Perjeta (420mg) for infusion. Delivery date: rep stated there is already a shipment in place to arrive 03/11 and this is NOT for replacement as this is coming from [facility] with patients name on it, Perjeta 840mg. This shipment will be for the next 2 maintenance doses. Infusion appt date: 03/23 & est 04/20 Infusion appt location: [facility] * Cristal Hahn CPhT - 03/03/2025 10:55 AM EST [facility] Received delivery of Perjeta (840mg) at [facility]. Placed in fridged to be couriered to [facility] prior to next appt on 03/23 and TBD. Invoice is uploaded to media in encounter. Patient Dose: Perjeta (420mg) MFG Lot: [id number] [facility] Expiration: 10/2026 2 doses in encounter. * Cristal Hahn CPhT - 03/03/2025 10:55 AM EST [facility] 1 dose Perjeta was sent via sandwich hand on 03/19 to [facility] * Peyton Raphael CPhT - 03/03/2025 10:55 AM EST [facility] medication used, pushed through charge for a renay. Dose used:(420mg) Remaining treatments: 1 Order#: [id number] Verified MFG Lot: Yes Next dos 04/13 * Cristal Hahn CPhT - 03/03/2025 10:55 AM EST [facility] Perjeta was sent via sandwich hand on 04/07 to [facility] * Peyton Raphael CPhT - 03/03/2025 10:55 AM EST [facility] Indigent medication used, pushed through charge for a renay. Dose used:(420mg) Remaining treatments: 0 Order#: [id number] Verified MFG Lot: Yes documented in this encounter Plan of Treatment Upcoming Encounters Date Type Department Care Team (Late st Contact Info) Description 05/01/2025 12:30 PM EST Appointment [facility] [place] [address] Maxx Khan MD [address] [place] [address] [address] [place] [address] 05/04/2025 8:15 AM EST Appointment [facility] [place] [id number] 05/04/2025 8:45 AM EST [facility]ment [facility] [place] [address] Maxx Khan MD [address] [place] [address] [address] [place] [place] [address] 05/04/2025 9:00 AM EST Appointment [facility] [place] [address] 05/28/2025 10:30 AM EST Appointment [facility] [place] [address] Maxx Khan MD [address] [place] [address] [address] [place] [place] [address] 06/26/2025 10:15 AM EST Appointment [facility] RAD [place]C [place], [place] [id number] Consuelo Ugarte APRN [address] [facility] [place] [address] documented as of this encounter Goals Goal Patient Goal Type Associated Problems Recent Progress Patient-Stated? Author Breast Health Breast Health Yenni Funk, ANTHONY Note: Patient acknowledges understanding of new diagnosis, plan of care, available resources and how to contact Nurse Navigator with any future questions or concerns. documented as of this encounter Visit Diagnoses Not on filedocumented in this encounter Care Teams Licensed Plumber Relationship Specialty Start Date End Date Idania Cobb RN Oncology Nurse Navigator 01/22/25 Maxx Khan MD [address] [facility] [place] [address] Medical Oncologist Internal Medicine-Medical Oncology 02/18/25 Obdulia Mazariegos, RN Registered Nurse 02/18/25 Bhavesh Poole MD [address] [place] [address] Radiation Oncologist Radiology-Radiation Oncology 02/24/25 Elena Buck, Clerical Staff Financial Counselor 02/27/25 Ankush Jean, ANTHONY Registered Nurse Infusion Therapy 03/23/25 03/23/25 documented as of this encounter
--- OUTSIDE RECORDS SUMMARY | 2025-04-22 04:56 | XMS_ITS | Encounter Summary ---
Author Organization [place] [address] Care Team Providers Care Security Analyst Name Role Phone Idania Cobb RN Unavailable Maxx Khan MD Unavailable [phone] Obdulia Monet RN Unavailable Unavailable Bhavesh Poole MD Unavailable Elena Buck Clerical Staff Unavailable Reason for Visit * Reason Onset Date Comments Symptom Call 04/06/2025 Bladder infectio n symptoms per pt, pressure, started this past Sunday. Encounter Details Date Type Department Care Team (Late st Contact Info) Description 04/06/2025 Telephone [facility] [place] [address] Maxx Khan MD [address] [place], [place] [id number] Symptom Call (Bladder infection symptoms per pt, pressure, started this past Sunday.) Social History Tobacco Use Types Packs/Day Years [...] Addendum Note - Obdulia Monet RN - 04/08/2025 12:35 PM ESTAddended by: OBDULIA MONET on: 04/08/2025 12:35 PM Modules accepted: Orders * Telephone Encounter - Obdulia Monet RN - 04/08/2025 12:34 PM EST Patient had sample drawn at PCP's office. Cancelled order from our office. * Telephone Encounter - Obdulia Monet RN - 04/08/2025 10:24 AM EST Patient did not get urine collected yesterday. [employer] message sent to discuss about having drawn. * Addendum Note - Obdulia Monet RN - 04/06/2025 3:28 PM ESTAddended by: OBDULIA MONET on: 04/06/2025 03:28 PM Modules accepted: Orders * Telephone Encounter - Marlen Watkins RN - 04/06/2025 2:53 PM EST Call placed to pt regarding symptom call. Pt states she has cloudy urine, increased pressure, increase in frequency. Pt denies pain or hematuria. Pt states symptoms started on Sunday04/03/25. Informed pt that MD would need to have urine/culture before prescribing antibiotics. Pt states she can go tomorrow to PCP office to have urine tested tomorrow. No further needs at this time. * Telephone Encounter - Delia Hyde DTR - 04/06/2025 12:50 PM EST Medical Oncology Clinic Symptom Call: Yes Primary Oncologist: Dr. Khan Diagnoses: Current Treatment: Last date of Tx: 03/23 Last appt and provider: Dr. Khan Next scheduled office visit: 04/13 Caller reports the patient has the following symptoms:Pt called asking to speak with the nurse. Shethen asked for an antibiotic for a bladder infection. I asked what type of symptoms she was having and she said normal bladder infection symptoms, pressure. Symptoms started (date/time):Sunday Have you been exposed to COVID or tested for COVID within the last 48 hours:No Does the patient have a FEVER/what is it:No Has the patient had any recent surgeries:No Has the patient taken anything to help the symptoms:No MYCHART Photo (Y, N, N/A): n/a What Location is the Patient seen at:[facility] Preferred call back number:[phone] documented in this encounter Plan of Treatment Upcoming Encounters Date Type Department Care Team (Late st Contact Info) Description 05/01/2025 12:30 PM EST Appointment [facility] [address] [place] [id number] Maxx Khan MD [address] [place] [address] [place] [address] 05/04/2025 8:15 AM EST Appointment [facility] [place] [address] 05/04/2025 8:45 AM EST [facility]ment [facility] [place] [address] Maxx Khan MD [address] [place] [address] [address] [facility] 05/04/2025 9:00 AM EST Appointment [facility] [place] [address] 05/28/2025 10:30 AM EST Appointment [facility] [place] [address] Maxx Khan MD [address] [place] [address] [place] [address] 06/26/2025 10:15 AM EST Appointment [facility] RAD ONC [place], [place] [id number] Consuelo Ugarte APRN [address] [facility] [address] [place] [id number] documented as of this encounter Goals Goal Patient Goal Type Associated Problems Recent Progress Patient-Stated? Author Breast Health Breast Health Yenni Funk, RN Note: Patient acknowledges understanding of new diagnosis, plan of care, available resources and how to contact Nurse Navigator with any future questions or concerns. documented as of this encounter Visit Diagnoses Diagnosis Urinary frequency- Primary documented in this encounter Care Teams Security Analyst Relationship Specialty Start Date End Date Idania Cobb RN Oncology Nurse Navigator 01/22/25 Maxx Khan MD [address] [facility] [place] [address] Medical Oncologist Internal Medicine-Medical Oncology 02/18/25 Obdulia Monet, ANTHONY Registered Nurse 02/18/25 Bhavesh Poole MD 1 [place] [address] Radiation Oncologist Radiology-Radiation Oncology 02/24/25 Elena Buck, Clerical Staff Financial Counselor 02/27/25 documented as of this encounter
--- OUTSIDE RECORDS SUMMARY | 2025-04-22 04:56 | XMS_ITS | Encounter Summary ---
Author Organization [place] [address] Care Team Providers Care Grain Farmer Name Role Phone Idania Cobb RN Unavailable Maxx Khan MD Unavailable [phone] Obdulia Mazariegos RN Unavailable Unavailable Bhavesh Poole MD Unavailable Elena Buck Clerical Staff Unavailable Encounter Details Date Type Department Care Team (Late st Contact Info) Description 03/09/2025 Telephone [facility] [place] [address] Yusra Mcdaniels RN Social History Tobacco Use Types Packs/Day Years [...] Telephone Encounter - Obdulia Mazariegos RN - 03/09/2025 2:35 PM EST RN reviewed. Spoke with LEIF Mata: Patient is afebrile. Asymptomatic. Stressed neutropenic precautions and call for s&s infection and temp. * Telephone Encounter - Yusra Mcdaniels RN - 03/09/2025 2:21 PM EST Rosario Man [id number], 1960 03/09/2025 Test Name/Result: WBC 1.0/Neut 0.1 Time: 142 Caller/Tsa Screener: Fanta gomez/Yusra CRUZ Action Taken:SHARRI and Obduila RN notified (pt seen 03/09 by SHARRI for MTP) Time: 142 Notified Physician/Physician Designee: SHARRI Katz and Obdulia RN notified in person. documented in this encounter Plan of Treatment Upcoming Encounters Date Type Department Care Team (Late st Contact Info) Description 05/01/2025 12:30 PM EST Appointment [facility] [place] [address] Maxx Khan MD [address] [place] [address] [place] [address] 05/04/2025 8:15 AM EST Appointment [place] [address] 05/04/2025 8:45 AM EST [facility]ointment [facility] [place] [id number] Maxx Khan MD [address] [place] [address] [place] [address] 05/04/2025 9:00 AM EST Appointment [facility] [place], [place] [id number] 05/28/2025 10:30 AM EST Appointment [facility] [place] [address] Maxx Khan MD [address] [place] [address] [place] [address] 06/26/2025 10:15 AM EST Appointment [facility] [place] [address] Consuelo Ugarte APRN [address] [place] [address] [place] [address] documented as of this encounter Goals Goal Patient Goal Type Associated Problems Recent Progress Patient-Stated? Author Breast Health Breast Health Yenni Funk, RN Note: Patient acknowledges understanding of new diagnosis, plan of care, available resources and how to contact Nurse Navigator with any future questions or concerns. documented as of this encounter Visit Diagnoses Not on filedocumented in this encounter Care Teams Grain Farmer Relationship Specialty Start Date End Date Idania Cobb RN Oncology Nurse Navigator 01/22/25 Maxx Khan MD 1 [facility] [place] [address] Medical Oncologist Internal Medicine-Medical Oncology 02/18/25 Obdulia Mazariegos, ANTHONY Registered Nurse 02/18/25 Bhavesh Poole MD [address] [place] [address] Radiation Oncologist Radiology-Radiation Oncology 02/24/25 Elena Buck, Clerical Staff Financial Counselor 02/27/25 documented as of this encounter
--- OUTSIDE RECORDS SUMMARY | 2025-04-22 04:56 | XMS_ITS | Encounter Summary ---
Author Organization [place] [address] Care Team Providers Care Pig Caster Name Role Phone Idania Cobb RN Unavailable Maxx Khan MD Unavailable [phone] Obdulia Mazariegos RN Unavailable Unavailable Bhavesh Poole MD Unavailable Elena Buck Clerical Staff Unavailable Reason for Visit * Reason Onset Date Comments Follow-up 03/04/2025 Chemo callback Encounter Details Date Type Department Care Team (Late st Contact Info) Description 03/04/2025 Telephone [facility] [place] [address] Maxx Khan MD [address] [place] [address] Follow-up (Chemo callback ) Social History Tobacco Use Types Packs/Day Years [...] Telephone Encounter - Obdulia Mazariegos RN - 03/04/2025 10:07 AM EST Diagnosis: Invasive ductal carcinoma of right breast Date of Treatment: 03/02/2025 Regimen: Docetaxel, Trastuzumab, Pertuzumab Problem/Assessment Nausea: yes, patient was slightly nauseated yesterday but after taking a compazine felt fine, Vomiting: no, Diarrhea: no, Constipation: no, Difficulty Sleeping: steroids are effecting sleep and giving her a headache, Oral Intake: decreased but adequate, Performing Mouth Care: no, Peripheral/Access Device Site: WNL , and Other Problems: no Patient did state that she has noticed that foods taste slightly metallic taste. She didn't eat much yesterday but did have some rotisserie chicken, which she felt did not sit well with her. She had cream of wheat this morning to add something bland. Plan/Implementation Discussed patient's symptoms with physician Yes, Reinforced appropriate use/dose of anti nausea med/prescribed meds, Reviewed intervention of diarrhea/constipation, Reinforced adequate fluid intake 8-10 glasses of fluid per 24 hours, Reinforced mouth care instructions, and Other medications/Interven tions no additional medications needed at this time. Evaluation/Follow-Up Patient / Caregiver verbalized understanding of instructions and will call with further problems / questions and Patient / Caregiver aware of office phone number and next appointment time Self-Care Instructions Provided Treatment Planning Visit Scheduled: Yes, 03/09 at 1:30 with LEIF Mata documented in this encounter Plan of Treatment Upcoming Encounters Date Type Department Care Team (Late st Contact Info) Description 05/01/2025 12:30 PM EST Appointment [facility] [place] [address] Maxx Khan MD [address] [place] [address] [address] [place] [id number] 05/04/2025 8:15 AM EST Appointment [facility] [place], [place] [id number] 05/04/2025 8:45 AM EST Appointment [facility] [place], [place] [id number] Maxx Khan MD [address] [place] [address] [address] [place] [id number] 05/04/2025 9:00 AM EST Appointment [facility] [place] [place], [place] [id number] 05/28/2025 10:30 AM EST Appointment [facility] [place], [place] [id number] Maxx Khan MD [address] [facility] [address] [place] [id number] 06/26/2025 10:15 AM EST Appointment [facility] ONC [place], [place] [id number] Consuelo Ugarte APRN [address] [facility] [address] [place], [place] [id number] documented as of this encounter Goals Goal Patient Goal Type Associated Problems Recent Progress Patient-Stated? Author Breast [facility] Breast Health Yenni Funk RN Note: Patient acknowledges understanding of new diagnosis, plan of care, available resources and how to contact Nurse Navigator with any future questions or concerns. documented as of this encounter Visit Diagnoses Not on filedocumented in this encounter Care Teams Pig Caster Relationship Specialty Start Date End Date Idania Cobb RN Oncology Nurse Navigator 01/22/25 Maxx Khan MD [address] [facility] [address] [place], [place] [id number] Medical Oncologist Internal Medicine-Medical Oncology 02/18/25 Obdulia Mazariegos, RN Registered Nurse 02/18/25 Bhavesh Poole MD 1 [place], [place] [id number] Radiation Oncologist Radiology-Radiation Oncology 02/24/25 Elena Buck, Clerical Staff Financial Counselor 02/27/25 documented as of this encounter
--- OUTSIDE RECORDS SUMMARY | 2025-04-22 04:56 | XMS_ITS | Encounter Summary ---
Author Organization [place] [address] Care Team Providers Care Database Programmer Analyst Name Role Phone Idania Cobb RN Unavailable Maxx Khan MD Unavailable [phone] Obdulia Mazariegos RN Unavailable Unavailable Bhavesh Poole MD Unavailable Elena Buck Clerical Staff Unavailable Francisca Oconnor RN Unavailable Unava ilable Reason for Visit * Reason Comments Oncology Nurse Navigation F2F Encounter Details Date Type Department Care Team (Late st Contact Info) Description 03/02/2025 Patient Outreach [facility] [place] [address] Idania Cobb, RN Oncology Nurse Navigation (F2F) Social History Tobacco Use Types Packs/Day Years [...] as of this encounter Progress Notes * Idania Cobb RN - 03/02/2025 12:32 PM EST Navigation Assessment Chief complaint: Chief Complaint Patient presents with Oncology Nurse Navigation F2F Current Status: Active Diagnosis: Breast Cancer - Triple Positive Visit Type: OP Infusion Reason: Follow-Up Missed F2F: No Assessment: Home / Family / Social No concerns noted (Patient accompanied by her , Bacilio, at appts today.) Logistical Distance from Cancer Center (Pt lives about [place] hour away from [facility].) Treatment No concerns noted (C1D1) Intervention: Onc NN encouraged pt to reach out with any concerns or questions she may have after getting her tx.Will continue to be available as needed. Communication / Cultural No concerns noted Physical No concerns noted Emotional Gratitude Education Education Provided About: Internal Resources;My Fight Plan Follow-up Plan Rad/Onc;Med/Onc;Infusion 03/09 XRT and med tx planning with Krjonathon; 03/23 Bill and tx Onc NN will continue to follow patient. documented in this encounter Plan of Treatment Upcoming Encounters Date Type Department Care Team (Late st Contact Info) Description 05/01/2025 12:30 PM EST Appointment [facility] [place] [address] Maxx Khan MD [address] [place] [address] [place] [address] 05/04/2025 8:15 AM EST Appointment [facility] [address] 05/04/2025 8:45 AM EST [facility]ment [facility] [place] [address] Maxx Khan MD [address] [place] [address] [address] [place] [id number] 05/04/2025 9:00 AM EST Appointment [facility] [place] [address] 05/28/2025 10:30 AM EST Appointment [facility] [address] [place] [id number] Maxx Khan MD [address] [place] [address] [place] [address] 06/26/2025 10:15 AM EST Appointment [facility] RAD [place]C [place], [place] [id number] Consuelo Ugarte APRN [address] [facility] [address] [place] [id number] documented as of this encounter Goals Goal Patient Goal Type Associated Problems Recent Progress Patient-Stated? Author Breast [facility] Breast [facility] Yenni Funk RN Note: Patient acknowledges understanding of new diagnosis, plan of care, available resources and how to contact Nurse Navigator with any future questions or concerns. documented as of this encounter Visit Diagnoses Not on filedocumented in this encounter Care Teams Database Programmer Analyst Relationship Specialty Start Date End Date Idania Cobb RN Oncology Nurse Navigator 01/22/25 Maxx Khan MD [address] [facility] [place] [address] Medical Oncologist Internal Medicine-Medical Oncology 02/18/25 Obdulia Mazariegos, ANTHONY Registered Nurse 02/18/25 Bhavesh Poole MD 1 [place] [address] Radiation Oncologist Radiology-Radiation Oncology 02/24/25 Elena Buck, Clerical Staff Financial Counselor 02/27/25 Francisca Oconnor, ANTHONY Registered Nurse Infusion Therapy 03/02/25 03/02/25 documented as of this encounter
--- OUTSIDE RECORDS SUMMARY | 2025-04-22 04:56 | XMS_ITS | Encounter Summary ---
Author Organization [place] [address] Care Team Providers Care Cabin Agent Name Role Phone Idania Cobb RN Unavailable Maxx Khan MD Unavailable [phone] Obdulia Mazariegos RN Unavailable Unavailable Bhavesh Poole MD Unavailable Elena Buck Clerical Staff Unavailable Reason for Visit * Reason Onset Date Comments Integrative Oncology Referral 03/24/2025 wi g fitting Encounter Details Date Type Department Care Team (Late st Contact Info) Description 03/24/2025 Telephone [place] [address] Rossana Vergara, Clerical Staff Integrative Oncology Referral (wig fitting) Social History Tobacco Use Types Packs/Day Years [...] encounter Miscellaneous Notes * Telephone Encounter - Rossana Vergara, Clerical Staff - 03/24/2025 3:44 PM EST [employer] message sent re: wig fitting. documented in this encounter Plan of Treatment Upcoming Encounters Date Type Department Care Team (Late st Contact Info) Description 05/01/2025 12:30 PM EST Appointment [facility] [place] [address] Maxx Khan MD [address] [facility] [place] [address] 05/04/2025 8:15 AM EST Appointment [facility] [place], [place] [id number] 05/04/2025 8:45 AM EST [facility]ment [facility] [place] [address] Maxx Khan MD [address] [place] [address] [place] [address] 05/04/2025 9:00 AM EST Appointment [facility] [place], [place] [id number] 05/28/2025 10:30 AM EST Appointment [facility] [place] [address] Maxx Khan MD [address] [facility] [place] [address] 06/26/2025 10:15 AM EST Appointment [facility] [address] Consuelo Ugarte APRN [address] [facility] [place] [address] documented as of this encounter Goals Goal Patient Goal Type Associated Problems Recent Progress Patient-Stated? Author Breast Health Breast Health Yenni Funk, ANTHONY Note: Patient acknowledges understanding of new diagnosis, plan of care, available resources and how to contact Nurse Navigator with any future questions or concerns. documented as of this encounter Visit Diagnoses Not on filedocumented in this encounter Care Teams Cabin Agent Relationship Specialty Start Date End Date Idania Cobb RN Oncology Nurse Navigator 01/22/25 Maxx Khan MD 1 [place] [address] Medical Oncologist Internal Medicine-Medical Oncology 02/18/25 Obdulia Mazariegos, RN Registered Nurse 02/18/25 Bhavesh Poole MD 1 [place] [address] Radiation Oncologist Radiology-Radiation Oncology 02/24/25 Elena Buck, Clerical Staff Financial Counselor 02/27/25 documented as of this encounter
--- OUTSIDE RECORDS SUMMARY | 2025-04-22 04:56 | XMS_ITS | Encounter Summary ---
Author Organization [place] [address] Care Team Providers Care Solid Waste Technician Name Role Phone Idania Cobb RN Unavailable Maxx Khan MD Unavailable [phone] Obdulia Mazariegos RN Unavailable Unavailable Bhavesh Poole MD Unavailable Elena Buck Clerical Staff Unavailable Reason for Visit * Reason Comments Pharmacy Specialty Management Perjeta Encounter Details Date Type Department Care Team (Latest Contact Info) Description 04/14/2025 Specialty Pharmacy [facility] [address] [id number] Maxx Khan MD [address] [place], [place] [id number] Pharmacy Specialty Management (Perjeta ) Social History Tobacco Use Types Packs/Day [...] Progress Notes * Peyton Raphael CPhT - 04/14/2025 10:00 AM EST [facility] Called [facility] to schedule delivery of Perjeta (420mg) for infusion. Delivery date: 04.29 Infusion appt date: 05.04 Infusion appt location: [place] Order [id number] documented in this encounter Plan of Treatment Upcoming Encounters Date Type Department Care Team (Late st Contact Info) Description 05/01/2025 12:30 PM EST Appointment [facility] [place] [address] Maxx Khan MD 1 [facility] [place] [address] 05/04/2025 8:15 AM EST Appointment [place] [address] 05/04/2025 8:45 AM EST [facility]ment [facility] [place] [address] Maxx Khan MD 1 [facility] [place] [address] 05/04/2025 9:00 AM EST Appointment [facility] [place]N [place], [place] [id number] 05/28/2025 10:30 AM EST Appointment [facility] [place] [address] Maxx Khan MD 1 [facility] [place] [place] [address] 06/26/2025 10:15 AM EST Appointment [facility] RAD ONC [place], [place] [id number] Consuelo Ugarte APRN 1 [facility] [place] [address] documented as of this encounter Goals Goal Patient Goal Type Associated Problems Recent Progress Patient-Stated? Author Breast Health Breast Health Yenni Funk, RN Note: Patient acknowledges understanding of new diagnosis, plan of care, available resources and how to contact Nurse Navigator with any future questions or concerns. documented as of this encounter Visit Diagnoses Not on filedocumented in this encounter Care Teams Solid Waste Technician Relationship Specialty Start Date End Date Idania Cobb, RN Oncology Nurse Navigator 01/22/25 Maxx Khan MD 1 [place], [place] [id number] Medical Oncologist Internal Medicine-Medical Oncology 02/18/25 Obdulia Mazariegos, ANTHONY Registered Nurse 02/18/25 Bhavesh Poole MD 1 [place] [address] Radiation Oncologist Radiology-Radiation Oncology 02/24/25 Elena Buck, Clerical Staff Financial Counselor 02/27/25 documented as of this encounter
--- OUTSIDE RECORDS SUMMARY | 2025-04-22 04:56 | XMS_ITS | Encounter Summary ---
Author Organization [facility] Address [address] [place] [address] Care Team Providers Care Curator Of Education Name Role Phone Idania Cobb RN Unavailable Maxx Khan MD Unavailable [phone] Obdulia Mazariegos RN Unavailable Unavailable Bhavesh Poole MD Unavailable Elena Buck Clerical Staff Unavailable Reason for Visit * Reason Onset Date Comments Follow-up 03/13/2025 Port placement f ollow up Encounter Details Date Type Department Care Team (Late st Contact Info) Description 03/13/2025 Telephone [facility] [place] [address] [place], [place] [id number] Mary Saleh, Clerical Staff Follow-up (Port placement follow up ) Social History Tobacco Use Types Packs/Day [...] encounter Miscellaneous Notes * Telephone Encounter - Mary Saleh, Clerical Staff - 03/13/2025 10:04 AM EST Called and spoke with patient about port placed by Dr David on 02/27/25. Port has been accessed without any difficulty. No redness or drainage at port site. Denies fever. Patient states she has bruising after port access and heparin flush. Will discuss with onocology nurse next time accessed. Patient states dermal glue is off. Patient will call as needed. documented in this encounter Plan of Treatment Upcoming Encounters Date Type Department Care Team (Late st Contact Info) Description 05/01/2025 12:30 PM EST Appointment [facility] [place] [address] Maxx Khan MD 1 [facility] [place] [address] 05/04/2025 8:15 AM EST Appointment [facility] [place] [address] 05/04/2025 8:45 AM EST Appointment [facility] [place] [address] Maxx Khan MD [address] [place] [address] [place] [address] 05/04/2025 9:00 AM EST Appointment [facility] INFUSN [place], [place] [phone] 05/28/2025 10:30 AM EST Appointment [facility] [place] [address] Maxx Khan MD [address] [place] [address] [address] [place] [place] [address] 06/26/2025 10:15 AM EST Appointment [facility] [place] [address] Consuelo Ugarte APRN 1 [facility] [place] [address] documented as of this encounter Goals Goal Patient Goal Type Associated Problems Recent Progress Patient-Stated? Author Breast Health Breast Health Yenni Funk, RN Note: Patient acknowledges understanding of new diagnosis, plan of care, available resources and how to contact Nurse Navigator with any future questions or concerns. documented as of this encounter Visit Diagnoses Not on filedocumented in this encounter Care Teams Curator Of Education Relationship Specialty Start Date End Date Idania Cobb RN Oncology Nurse Navigator 01/22/25 Maxx Khan MD 1 [place] [address] Medical Oncologist Internal Medicine-Medical Oncology 02/18/25 Obdulia Mazariegos RN Registered Nurse 02/18/25 Bhavesh Poole MD 1 [place] [address] Radiation Oncologist Radiology-Radiation Oncology 02/24/25 Elena Buck, Clerical Staff Financial Counselor 02/27/25 documented as of this encounter
--- OUTSIDE RECORDS SUMMARY | 2025-04-22 04:56 | XMS_ITS | Encounter Summary ---
Author Organization [place] [address] Care Team Providers Care Vocational Auto Body Instructor Name Role Phone Idania Cobb RN Unavailable Maxx Khan MD Unavailable [phone] Obdulia Mazariegos RN Unavailable Unavailable Bhavesh Poole MD Unavailable Elena Buck Clerical Staff Unavailable Francisca Oconnor RN Unavailable Unava ilable Encounter Details Date Type Department Care Team (Late st Contact Info) Description 03/02/2025 Orders Only [place] [address] Tc Hickey, PharmD Social History Tobacco Use Types Packs/Day Years [...] Info) Description 05/01/2025 12:30 PM EST Appointment [facility] [place] [address] Maxx Khan MD [address] [place] [address] 05/04/2025 8:15 AM EST Appointment [facility] [place], [place] [id number] 05/04/2025 8:45 AM EST Appointment [facility] [place] [address] Maxx Khan MD 1 [facility] [place] [address] 05/04/2025 9:00 AM EST Appointment [facility] [place], [place] [id number] 05/28/2025 10:30 AM EST Appointment [facility] [place] [address] Maxx Khan MD [address] [place] [address] [place] [address] 06/26/2025 10:15 AM EST Appointment [facility] [place] [place] [address] Consuelo Ugarte APRN [address] [place] [address] [place] [address] documented as of this encounter Goals Goal Patient Goal Type Associated Problems Recent Progress Patient-Stated? Author Breast Health Breast Health Yenni Funk, RN Note: Patient acknowledges understanding of new diagnosis, plan of care, available resources and how to contact Nurse Navigator with any future questions or concerns. documented as of this encounter Visit Diagnoses Not on filedocumented in this encounter Care Teams Vocational Auto Body Instructor Relationship Specialty Start Date End Date Idania Cobb RN Oncology Nurse Navigator 01/22/25 Maxx Khan MD 1 [facility] [place] [address] Medical Oncologist Internal Medicine-Medical Oncology 02/18/25 Obdulia Mazariegos, RN Registered Nurse 02/18/25 Bhavesh Poole MD [address] [place] [address] Radiation Oncologist Radiology-Radiation Oncology 02/24/25 Elena Buck, Clerical Staff Financial Counselor 02/27/25 Francisca Oconnor, RN Registered Nurse Infusion Therapy 03/02/25 03/02/25 documented as of this encounter
--- OUTSIDE RECORDS SUMMARY | 2025-04-22 04:56 | XMS_ITS | Encounter Summary ---
Author Organization [place] [address] Care Team Providers Care Primary Care Nurse Practitioner Name Role Phone Idania Cobb RN Unavailable Maxx Khan MD Unavailable [phone] Obdulia Mazariegos RN Unavailable Unavailable Bhavesh Poole MD Unavailable Elena Buck Clerical Staff Unavailable Francisca Oconnor RN Unavailable Unava ilable Reason for Visit * Reason Onset Date Comments Reschedule 03/02/2025 Radiation Encounter Details Date Type Department Care Team (Late st Contact Info) Description 03/02/2025 Telephone [facility] [place] [id number] Maxx Khan MD [address] [place] [phone] Reschedule (Radiation ) Social History Tobacco Use Types Packs/Day [...] encounter Miscellaneous Notes * Telephone Encounter - Roxy Almonet, Clerical Staff - 03/02/2025 12:59 PM EST Rerouting to radiation therapists * Telephone Encounter - Obdulia Mazariegos RN - 03/02/2025 11:44 AM EST Patient starting D1C1 THP. While meeting with patient, she asked if radiation could be delayed by 1week. She is currently scheduled 02/06 to start but will be meeting with disability for a phone interview on 02/08 at 1 pm. She would like to have that conversation and potentially get paperwork/coverage in order prior to starting. Will route to radiation so they are aware and can make the necessary adjustments. documented in this encounter Plan of Treatment Upcoming Encounters Date Type Department Care Team (Late st Contact Info) Description 05/01/2025 12:30 PM EST Appointment [facility] [place] [address] Maxx Khan MD [address] [place] [address] [place] [address] 05/04/2025 8:15 AM EST Appointment [facility] [place], [place] [id number] 05/04/2025 8:45 AM EST Appointment [facility] [place], [place] [phone] Maxx Khan MD [address] [place] [address] [address] [place], [place] [address]17 05/04/2025 9:00 AM EST Appointment [place] [address] 05/28/2025 10:30 AM EST Appointment [facility] [place] [address] Maxx Khan MD [address] [place] [address] [place] [address] 06/26/2025 10:15 AM EST Appointment [facility] RAD ONC [facility], [place] [id number] Consuelo Ugarte APRN 1 [facility] [address] [place] [id number] documented as of this encounter Goals Goal Patient Goal Type Associated Problems Recent Progress Patient-Stated? Author Breast Health Breast Health Yenni Funk RN Note: Patient acknowledges understanding of new diagnosis, plan of care, available resources and how to contact Nurse Navigator with any future questions or concerns. documented as of this encounter Visit Diagnoses Not on filedocumented in this encounter Care Teams Primary Care Nurse Practitioner Relationship Specialty Start Date End Date Idania Cobb RN Oncology Nurse Navigator 01/22/25 Maxx Khan MD 1 [facility] [address] [place], [place] [id number] Medical Oncologist Internal Medicine-Medical Oncology 02/18/25 Obdulia Mazariegos, ANTHONY Registered Nurse 02/18/25 Bhavesh Poole MD 1 [place], [place] [id number] Radiation Oncologist Radiology-Radiation Oncology 02/24/25 Elena Buck, Clerical Staff Financial Counselor 02/27/25 Francisca Oconnor, ANTHONY Registered Nurse Infusion Therapy 03/02/25 03/02/25 documented as of this encounter
--- OUTSIDE RECORDS SUMMARY | 2025-04-22 04:57 | XMS_ITS | Encounter Summary ---
Author Organization [place] [address] Care Team Providers Care Pct Name Role Phone Idania Cobb RN Unavailable Maxx Khan MD Unavailable [phone] Obdulia Mazariegos RN Unavailable Unavailable Bhavesh Poole MD Unavailable Elena Buck Clerical Staff Unavailable Francisca Oconnor RN Unavailable Unava ilable Ankush Jean RN Unavailable Unavailable Encounter Details Date Type Department Care Team (Late st Contact Info) Description 02/25/2025 Results Follow-Up [facility] Medical Oncology [place] [id number] Maxx Khan MD [address] [place] [address] [id number] MRI COMPLETE SPINAL SCREENING W WO CONTRAST, MRI BRAIN W WO CONTRAST Social History Tobacco Use Types Packs/Day Years [...] Info) Description 05/01/2025 12:30 PM EST Appointment [facility] CT [place], [place] [phone] Maxx Khan MD 1 [facility] [place] [place] [address] 05/04/2025 8:15 AM EST Appointment [facility] [address] 05/04/2025 8:45 AM EST Appointment [facility] [place] [address] Maxx Khan MD [address] [place] [address] [place] [address] 05/04/2025 9:00 AM EST Appointment [facility] INFUSN [place], [place] [id number] 05/28/2025 10:30 AM EST Appointment [facility] [place] [address] Maxx Khan MD [address] [place] [address] [place] [address] 06/26/2025 10:15 AM EST Appointment [facility] [place] [place] [address] Consuelo Ugarte APRN [address] [place] [address] [place] [address] documented as of this encounter Goals Goal Patient Goal Type Associated Problems Recent Progress Patient-Stated? Author Breast Health Breast Health Yenni Funk RN Note: Patient acknowledges understanding of new diagnosis, plan of care, available resources and how to contact Nurse Navigator with any future questions or concerns. documented as of this encounter Visit Diagnoses Not on filedocumented in this encounter Care Teams Pct Relationship Specialty Start Date End Date Idania Cobb RN Oncology Nurse Navigator 01/22/25 Maxx Khan MD [address] [facility] [place] [address] Medical Oncologist Internal Medicine-Medical Oncology 02/18/25 Obdulia Mazariegos, RN Registered Nurse 02/18/25 Bhavesh Poole MD 1 [place] [address] Radiation Oncologist Radiology-Radiation Oncology 02/24/25 Elena Buck, Clerical Staff Financial Counselor 02/27/25 Francisca Oconnor, ANTHONY Registered Nurse Infusion Therapy 03/02/25 03/02/25 Ankush Jean, ANTHONY Registered Nurse Infusion Therapy 03/23/25 03/23/25 documented as of this encounter
--- OUTSIDE RECORDS SUMMARY | 2025-04-22 04:57 | XMS_ITS | Encounter Summary ---
Author [place] [address] Care Team Providers Care Communication Consultant Name Role Phone Idania Cobb RN Unavailable Maxx Khan MD Unavailable [phone] Obdulia Mazariegos RN Unavailable Unavailable Bhavesh Poole MD Unavailable Elena Buck Clerical Staff Unavailable Reason for Visit * Reason Onset Date Comments Integrative Oncology Referral 02/27/2025 ma ssage therapy Encounter Details Date Type Department Care Team (Late st Contact Info) Description 02/27/2025 Telephone [facility]C [place] [phone] Rossana Vergara, Clerical Staff Integrative Oncology Referral (massage therapy) Social History Tobacco Use Types Packs/Day Years [...] Encounter - Rossana Vergara, Clerical Staff - 02/27/2025 2:52 PM EDT LVM regarding Integrative Oncology referral. - Rossana Vergara documented in this encounter Plan of Treatment Upcoming Encounters Date Type Department Care Team (Late st Contact Info) Description 05/01/2025 12:30 PM EST Appointment [facility] [place] [address] Maxx Khan MD [address] [facility] [place] [place] [address] 05/04/2025 8:15 AM EST Appointment [facility] [place], [place] [id number] 05/04/2025 8:45 AM EST Appointment [facility] [place] [address] Maxx Khan MD [address] [facility] [place] [address] 05/04/2025 9:00 AM EST Appointment [facility] INFUSN [place], [place] [id number] 05/28/2025 10:30 AM EST Appointment [facility] [place] [address] Maxx Khan MD [address] [facility] [place] [address] 06/26/2025 10:15 AM EST Appointment [place] [address] Consuelo Ugarte APRN [address] [facility] [place] [address] documented as of this encounter Goals Goal Patient Goal Type Associated Problems Recent Progress Patient-Stated? Author Breast Health Breast Health Yenni Funk, ANTHONY Note: Patient acknowledges understanding of new diagnosis, plan of care, available resources and how to contact Nurse Navigator with any future questions or concerns. documented as of this encounter Visit Diagnoses Not on filedocumented in this encounter Care Teams Communication Consultant Relationship Specialty Start Date End Date Idania Cobb RN Oncology Nurse Navigator 01/22/25 Maxx Khan MD 1 [place] [address] Medical Oncologist Internal Medicine-Medical Oncology 02/18/25 Obdulia Mazariegos, RN Registered Nurse 02/18/25 Bhavesh Poole MD 1 [place] [address] Radiation Oncologist Radiology-Radiation Oncology 02/24/25 Elena Buck, Clerical Staff Financial Counselor 02/27/25 documented as of this encounter
--- OUTSIDE RECORDS SUMMARY | 2025-04-22 04:57 | XMS_ITS | Encounter Summary ---
Author Organization [place] [address] Care Team Providers Care Game Designer Name Role Phone Idania Cobb RN Unavailable Maxx Khan MD Unavailable [phone] Obdulia Mazariegos RN Unavailable Unavailable Bhavesh Poole MD Unavailable Elena Buck Clerical Staff Unavailable Ankush Jean RN Unavailable Unavailable Reason for Visit * Reason Onset Date Comments Schedule Appointment 03/23/2025 ECHO Encounter Details Date Type Department Care Team (Late st Contact Info) Description 03/23/2025 Telephone [facility] [place] [address] Maxx Khan MD [address] [place] [address] Schedule Appointment (ECHO ) Social History Tobacco Use Types Packs/Day [...] Telephone Encounter - Obdulia Mazariegos RN - 04/01/2025 11:30 AM EST Patient scheduled 05/28. * Telephone Encounter - Obdulia Mazariegos RN - 03/23/2025 9:34 AM EST ECHO ordered. Plan for around 05/28/25. documented in this encounter Plan of Treatment Upcoming Encounters Date Type Department Care Team (Late st Contact Info) Description 05/01/2025 12:30 PM EST Appointment [facility] [place] [address] Maxx Khan MD [address] [place] [address] [place] [address] 05/04/2025 8:15 AM EST Appointment [place] [address] 05/04/2025 8:45 AM EST Appointment [facility] [place] [address] Maxx Khan MD [address] [place] [address] [place] [address] 05/04/2025 9:00 AM EST Appointment [facility] INFUSN [place], [place] [phone] 05/28/2025 10:30 AM EST Appointment [facility] [place] [address] Maxx Khan MD [address] [place] [address] [place] [address] 06/26/2025 10:15 AM EST Appointment [facility] [place] [place] [address] Consuelo Ugarte APRN [address] [place] [address] [place] [address] documented as of this encounter Goals Goal Patient Goal Type Associated Problems Recent Progress Patient-Stated? Author Breast Health Breast Health Yenni Funk, RN Note: Patient acknowledges understanding of new diagnosis, plan of care, available resources and how to contact Nurse Navigator with any future questions or concerns. documented as of this encounter Visit Diagnoses Not on filedocumented in this encounter Care Teams Game Designer Relationship Specialty Start Date End Date Idania Cobb RN Oncology Nurse Navigator 01/22/25 Maxx Khan MD [address] [place] [address] Medical Oncologist Internal Medicine-Medical Oncology 02/18/25 Obdulia Mazariegos, ANTHONY Registered Nurse 02/18/25 Bhavesh Poole MD 1 [place], [place] [id number] Radiation Oncologist Radiology-Radiation Oncology 02/24/25 Elena Buck, Clerical Staff Financial Counselor 02/27/25 Ankush Jean, ANTHONY Registered Nurse Infusion Therapy 03/23/25 03/23/25 documented as of this encounter
--- OUTSIDE RECORDS SUMMARY | 2025-04-22 04:57 | XMS_ITS | Encounter Summary ---
Author Organization [place] [address] Care Team Providers Care Expediter Service Order Name Role Phone Idania Cobb RN Unavailable Maxx Khan MD Unavailable [phone] Obdulia Mazariegos RN Unavailable Unavailable Bhavesh Poole MD Unavailable Encounter Details Date Type Department Care Team (Late st Contact Info) Description 02/25/2025 Social Work [facility] [place] [address] Samir Culver MSW Social History Tobacco Use Types Packs/Day Years [...] as of this encounter Progress Notes * Samir Culver MSW - 02/25/2025 2:19 PM EDT 02/25/25 1418 [address] [place]ckay Assessment Referred By distress tool Disease/[place] Site Model Set Artist Assignment Breast cancer Referral Location: Radiation Oncology Reason for Referral distress tool Identified Needs Mental Health;Financial issues;Insurance Social Work Interventions Education/Information Pt was referred by her distress tool rating of 5 . Tashawa [place], CURING ROOM WORKER attempted to reach pt by phone unsuccessfully. Phone indicated that was not set up. CURING ROOM WORKER sent pt a message asking if there was anything else could assist with. Pt will contact if there are any new or additional needs. Nothing further from at this time. documented in this encounter Plan of Treatment Upcoming Encounters Date Type Department Care Team (Late st Contact Info) Description 05/01/2025 12:30 PM EST Appointment [facility] [place] [address] Maxx Khan MD 1 [facility] [place] [address] 05/04/2025 8:15 AM EST Appointment [facility] [place], [place] [id number] 05/04/2025 8:45 AM EST Appointment [facility] [place] [address] Maxx Khan MD [address] [place] [address] [address] [place] [address] 05/04/2025 9:00 AM EST Appointment [facility] [place], [place] [id number] 05/28/2025 10:30 AM EST Appointment [facility] [place] [address] Maxx Khan MD [address] [place] [address] [place] [address] 06/26/2025 10:15 AM EST Appointment [facility] [place] [address] Consuelo Ugarte APRN [address] [facility] [place] [address] documented as of this encounter Goals Goal Patient Goal Type Associated Problems Recent Progress Patient-Stated? Author Breast Health Breast Health Yenni Funk, RN Note: Patient acknowledges understanding of new diagnosis, plan of care, available resources and how to contact Nurse Navigator with any future questions or concerns. documented as of this encounter Visit Diagnoses Not on filedocumented in this encounter Care Teams Expediter Service Order Relationship Specialty Start Date End Date Idania Cobb, RN Oncology Nurse Navigator 01/22/25 Maxx Khan MD 1 [place] [address] Medical Oncologist Internal Medicine-Medical Oncology 02/18/25 Obdulia Mazariegos, ANTHONY Registered Nurse 02/18/25 Bhavesh Poole MD 1 [place] [address] Radiation Oncologist Radiology-Radiation Oncology 02/24/25 documented as of this encounter
--- OUTSIDE RECORDS SUMMARY | 2025-04-22 04:57 | XMS_ITS | Encounter Summary ---
Author Organization [place] [address] Care Team Providers Care Wine Bottle Inspector Name Role Phone Idania Cobb RN Unavailable Maxx Khan MD Unavailable [phone] Obdulia Mazariegos RN Unavailable Unavailable Bhavesh Poole MD Unavailable Elena Buck Clerical Staff Unavailable Encounter Details Date Type Department Care Team (Late st Contact Info) Description 03/20/2025 Orders Only [place] [address] Tc Hickey, PharmD Social History Tobacco Use [...] Info) Description 05/01/2025 12:30 PM EST Appointment [facility] CT [place] [id number] Maxx Khan MD [address] [place] [address] 05/04/2025 8:15 AM EST Appointment [facility] [place], [place] [id number] 05/04/2025 8:45 AM EST Appointment [facility] [place], [place] [id number] Maxx Khan MD [address] [facility] [facility] [address] [place] [id number] 05/04/2025 9:00 AM EST Appointment [facility] [place], [place] [id number] 05/28/2025 10:30 AM EST Appointment [facility] [place] [address] Maxx Khan MD [address] [place] [address] 06/26/2025 10:15 AM EST Appointment [place] [address] Consuelo Ugarte APRN [address] [place] [address] documented as of this encounter Goals Goal Patient Goal Type Associated Problems Recent Progress Patient-Stated? Author Breast [facility] Breast Health Yenni Funk RN Note: Patient acknowledges understanding of new diagnosis, plan of care, available resources and how to contact Nurse Navigator with any future questions or concerns. documented as of this encounter Visit Diagnoses Not on filedocumented in this encounter Care Teams Wine Bottle Inspector Relationship Specialty Start Date End Date Idania Cobb RN Oncology Nurse Navigator 01/22/25 Maxx Khan MD [address] [place] [address] Medical Oncologist Internal Medicine-Medical Oncology 02/18/25 Obdulia Mazariegos, RN Registered Nurse 02/18/25 Bhavesh Poole MD [address] [place] [address] Radiation Oncologist Radiology-Radiation Oncology 02/24/25 Elena Buck, Clerical Staff Financial Counselor 02/27/25 documented as of this encounter
--- OUTSIDE RECORDS SUMMARY | 2025-04-22 04:57 | XMS_ITS ---
Author Organization [facility] Address [address] [place] [address] Phone Care Team Providers Care Big Machine Consultant Name Role Phone Idania Cobb RN Unavailable Maxx Khan MD Unavailable [phone] Obdulia Mazariegos RN Unavailable Unavailable Bhavesh Poole MD Unavailable Elena Buck Clerical Staff Unavailable Active Problems Problem Noted Date Diagnosed Date Secondary malignant neoplasm of bone 03/01/2025 Invasive ductal carcinoma of breast, female, rig ht 02/06/2025 Cancer Staging:Clinical stage from 01/20/2025:Stage IV(cT3, cN1(f), cM1, G3, ER+, NM+, HER2+) - Signed by Tresa Jacinto DO on 02/17/2025 Invasive ductal carcinoma of breast, female, lef t 02/06/2025 Cancer Staging:Clinical stage from 01/20/2025:Stage IA(cT1c, cN0, cM0, G2, ER+, NM+, HER2-) - Signed by Tresa Jacinto DO on 02/06/2025 High cholesterol 01/02/2025 Assessment & Plan (01/02/2025 5:48 PM EDT): Obesity (BMI 35.0-39.9 without comorbidity) 08/2024 Assessment & Plan (01/02/2025 5:48 PM EDT): Hypertension 01/02/2025 Kidney stones 01/02/2025 Anxiety 01/02/2025 Hx of tonsillectomy 01/02/2025 Renal cell cancer, left 01/02/2025 Overview (01/02/2025): removed portion of cancer; left kidney remains; states right kidney doesn't work d/t damage from 3 lithotripsy procedures in a row years ago Assessment & Plan (01/02/2025 5:48 PM EDT): - 2017 reports small renal cell ca; had partial nephrectomy; - 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; unable to retract records [facility] to review Current Treatment and Therapy Plans ONC DOCEtaxel (75) + trastuzumab + pertuzumab (THP) Q21D x 8 FOLLOWED by trastuzumab + pertuzumab Q21D* Plan Start Date:02/18/2025 Plan Provider:Maxx Khan MD Linked Problems Invasive ductal carcinoma of breast, female, right (HCC) Treatment Medications Current Day (Day 1 , Cycle 4 - Planned for 05/04/2025) Next Day (Day 1, Cycle 5 - Planned for 05/25/2025) DOCEtaxel (TAXOTERE)DOCEtaxel (TAXOTERE) chemo infusion (< 180 mg)pertuzumab (PERJETA)pertuzumab (PERJETA) chemo infusion (LOAD)pertuzumab (PERJETA) chemo infusion (MAINTENANCE)trastuzumab -anns (KANJINTI)trastuzumab-an ns (KANJINTI) chemo infusion DOCEtaxeL (TAXOTERE) 160 mg in sodium chloride 0.9 % 250 mL chemo infusionpertuzumab (PERJETA) 420 mg in sodium chloride 0.9 % 250 mL chemo infusiontrastuzumab-anns (KANJINTI) 650 mg in sodium chloride 0.9 % 250 mL chemo infusion DOCEtaxeL (TAXOTERE) 160 mg in sodium chloride 0.9 % 250 mL chemo infusionpertuzumab (PERJETA) 420 mg in sodium chloride 0.9 % 250 mL chemo infusiontrastuzumab-anns (KANJINTI) 650 mg in sodium chloride 0.9 % 250 mL chemo infusion ONCSEH PORT/PICC FLUSH* Plan Start Date:03/09/2025 Plan Provider:Esperanza Monsalve APRN Linked Problems Invasive ductal carcinoma of breast, female, left (HCC) Treatment Medications No medications scheduled. Past Treatment and Therapy Plans No past plan information found. Resolved Problems Problem Noted Date Diagnosed Date Resolved Date Bilateral breast cancer 01/22/202501/28 Overview (01/22/2025): melita IDC and positive Right Axillary node
--- OUTSIDE RECORDS SUMMARY | 2025-04-22 04:57 | XMS_ITS | Encounter Summary ---
Author Organization [place] [address] Care Team Providers Care Area Cleaner Name Role Phone Idania Cobb RN Unavailable Maxx Khan MD Unavailable [phone] Obdulia Mazariegos RN Unavailable Unavailable Bhavesh Poole MD Unavailable Elena Buck Clerical Staff Unavailable Reason for Visit * Reason Onset Date Comments Patient Question 02/27/2025 question about medication Encounter Details Date Type Department Care Team (Late st Contact Info) Description 02/27/2025 Telephone [facility] [place] [address] Maxx Khan MD [address] [place] [address] Patient Question (question about medication ) Social History Tobacco Use Types Packs/Day [...] Telephone Encounter - Obdulia Mazariegos RN - 02/27/2025 3:29 PM EDT Called patient and spoke with her about her dexamethasone. She just wanted to confirm. We went overthe regimen for her dexamethasone. No further needs at this time. * Telephone Encounter - Zulma Hoskins NA - 02/27/2025 3:01 PM EDT Reason for call: Patient is requesting call back from RN. She said she was told something about a steroid that she would need to take, but she does not have anything like that currently. Preferred call back number: [phone] documented in this encounter Plan of Treatment Upcoming Encounters Date Type Department Care Team (Late st Contact Info) Description 05/01/2025 12:30 PM EST Appointment [facility] [place] [address] Maxx Khan MD [address] [place] [address] [place] [address] 05/04/2025 8:15 AM EST Appointment [place] [address] 05/04/2025 8:45 AM EST Appointment [facility] [place], [place] [phone] Maxx Khan MD [address] [place] [address] [place] [address] 05/04/2025 9:00 AM EST Appointment [facility] [place], [place] [id number] 05/28/2025 10:30 AM EST Appointment [facility] [place] [address] Maxx Khan MD [address] [place] [address] [place], [place] [id number] 06/26/2025 10:15 AM EST Appointment [facility] [place] [place] [address] Consuelo Ugarte, TRACK LEADER [address] [facility] [place] [address] documented as of this encounter Goals Goal Patient Goal Type Associated Problems Recent Progress Patient-Stated? Author Breast Health Breast Health Yenni Funk, RN Note: Patient acknowledges understanding of new diagnosis, plan of care, available resources and how to contact Nurse Navigator with any future questions or concerns. documented as of this encounter Visit Diagnoses Not on filedocumented in this encounter Care Teams Area Cleaner Relationship Specialty Start Date End Date Idania Cobb RN Oncology Nurse Navigator 01/22/25 Maxx Khan MD [address] [facility] [place] [address] Medical Oncologist Internal Medicine-Medical Oncology 02/18/25 Obdulia Mazariegos, ANTHONY Registered Nurse 02/18/25 Bhavesh Poole MD [address] [place] [address] Radiation Oncologist Radiology-Radiation Oncology 02/24/25 Elena Buck, Clerical Staff Financial Counselor 02/27/25 documented as of this encounter
--- OUTSIDE RECORDS SUMMARY | 2025-04-22 04:57 | XMS_ITS | Encounter Summary ---
Author Organization [place] [address] Care Team Providers Care Miller Rod Mill Name Role Phone Idania Cobb RN Unavailable Mxax Khan MD Unavailable [phone] Obdulia Mazariegos RN Unavailable Unavailable Bhavesh Poole MD Unavailable Eelna Buck Clerical Staff Unavailable Encounter Details Date Type Department Care Team (Late st Contact Info) Description 03/20/2025 Orders Only [facility] Cancer Care [facility] [place] [address] Bhavesh Poole MD [address] [place], [place] [id number] Social History Tobacco Use Types Packs/Day Years [...] Description 05/01/2025 12:30 PM EST Appointment [facility] [place] [address] Maxx Khan MD [address] [place] [address] [place] [address] 05/04/2025 8:15 AM EST Appointment [facility] [place], [place] [id number] 05/04/2025 8:45 AM EST Appointment [facility] [place] [address] Maxx Khan MD [address] [place] [address] 05/04/2025 9:00 AM EST Appointment [facility] [place], [place] [id number] 05/28/2025 10:30 AM EST Appointment [facility] [address] [place], [place] [address] Maxx Khan MD [address] [facility] [place] [address] 06/26/2025 10:15 AM EST Appointment [facility] RAD ONC [place], [place] [id number] Consuelo Ugarte APRN [address] [place] [address] documented as of this encounter Goals Goal [...] Associated Diagnosis Comments RADIATION TREATMENT SUMMARY Routine 03/20/2025 2:07 PM EST documented in this encounter Results * RADIATION TREATMENT SUMMARY (03/20/2025 2:07 PM EST) Course ID C1 ARIA Course Start Date 02/25/2025 2:59:00 PM RAFFI Primary Oncologist Bhavesh Poole Session Number 5 CARINEA Treatment Date_Time 03/20/2025 2:07:34 PM ARIA Treatment Elapsed Days 4 ARIA Fractions Treated 15 ARIA Reference Point ID Iso_pnt_L1- L3 ARIA Dosage Given to Date in Gy 20.62363729 ARIA Session Dosage Given in Gy 4.15380661 ARIA Reference Point ID Iso_pnt_RtF emur ARIA Dosage Given to Date in Gy 20.2605617 ARIA Session Dosage Given in Gy 4.83835875 ARIA Reference Point ID Iso_pnt_T5 ARIA Dosage Given to Date in Gy 20.5707547 ARIA Session Dosage Given in Gy 4.11728368 ARIA Reference Point ID Ref_pnt_L1- L3 ARIA Dosage Given to Date in Gy 20 ARIA Session Dosage Given in Gy 4 ARIA Reference Point ID Ref_pnt_RtF emur ARIA Dosage Given to Date in Gy 20 ARIA Session Dosage Given in Gy 4 ARIA Reference Point ID Ref_pnt_T5 ARIA Dosage Given to Date in Gy 20 ARIA Session Dosage Given in Gy 4 ARIA Plan ID L1-L3_Spine ARIA Plan Name L1-L3_Spine ARIA Fractions Treated to Date 5 ARIA Prescribed Dose Per Fraction in Gy 4 ARIA Prescribed Dose in cGY 2,000 ARIA Site Being Treated Extremity-R tFemur ARIA Site Being Treated Spinal Cord-L1-L3 ARIA Site Being Treated Spinal Cord-T5 ARIA 03/20/2025 2:07 PM EST us Bhavesh Poole MD RADIATION ONCOLOGY ORDERABLES Fi nal Result Performing Organization Address City/State/[facility] Co de Phone Number ARI [address] [facility] [place] [address] documented in this encounter Visit Diagnoses Not on filedocumented in this encounter Care Teams Miller Rod Mill Relationship Specialty Start Date End Date Idania Cobb RN Oncology Nurse Navigator 01/22/25 Maxx Khan MD [address] [place] [address] Medical Oncologist Internal Medicine-Medical Oncology 02/18/25 Obdulia Mazariegos, ANTHONY Registered Nurse 02/18/25 Bhavesh Poole MD 1 [place] [address] Radiation Oncologist Radiology-Radiation Oncology 02/24/25 Elena Buck, Clerical Staff Financial Counselor 02/27/25 documented as of this encounter
--- OUTSIDE RECORDS SUMMARY | 2025-04-22 04:57 | XMS_ITS | Encounter Summary ---
Author Organization [place] [address] Care Team Providers Care Endoscopy Tech Name Role Phone Idania Cobb RN Unavailable Maxx Khan MD Unavailable [phone] Obdulia Mazariegos RN Unavailable Unavailable Bhavesh Poole MD Unavailable Elena Buck Clerical Staff Unavailable Encounter Details Date Type Department Care Team (Late st Contact Info) Description 03/19/[address] [facility] Cancer Care [facility] [place] [address] Bhavesh Poole MD [address] [place], [place] [phone] Social History Tobacco Use Types Packs/Day Years [...] Description 05/01/2025 12:30 PM EST Appointment [facility] One [place] [id number] Maxx Khan MD [address] [place] [address] [place] [address] 05/04/2025 8:15 AM EST Appointment [facility] [place], [place] [address]7 05/04/2025 8:45 AM EST Appointment [facility] [place] [address] Maxx Khan MD [address] [place] [address] 05/04/2025 9:00 AM EST Appointment [facility] [place] [place], [place] [id number] 05/28/2025 10:30 AM EST Appointment [facility] [address] [place], [place] [address] Maxx Khan MD [address] [facility] [address] 06/26/2025 10:15 AM EST Appointment [facility] RAD ONC [place], [place] [address] Consuelo Ugarte APRN [address] [place] [address] documented as of this encounter Goals Goal [...] Associated Diagnosis Comments RADIATION TREATMENT SUMMARY Routine 03/19/2025 2:09 PM EST documented in this encounter Results * RADIATION TREATMENT SUMMARY (03/19/2025 2:09 PM EST) Course ID C1 ARIA Course Start Date 02/25/2025 2:59:00 PM CARINEA Primary Oncologist Bhavesh Poole Session Number 4 CARINEA Treatment Date_Time 03/19/2025 2:09:12 PM ARIA Treatment Elapsed Days 3 ARIA Fractions Treated 12 ARIA Reference Point ID Iso_pnt_L1- L3 ARIA Dosage Given to Date in Gy 16.36337068 ARIA Session Dosage Given in Gy 4.33770952 ARIA Reference Point ID Iso_pnt_RtF emur ARIA Dosage Given to Date in Gy 16.78652012 ARIA Session Dosage Given in Gy 4.59540754 ARIA Reference Point ID Iso_pnt_T5 ARIA Dosage Given to Date in Gy 16.58705257 ARIA Session Dosage Given in Gy 4.83808673 ARIA Reference Point ID Ref_pnt_L1- L3 ARIA Dosage Given to Date in Gy 16 ARIA Session Dosage Given in Gy 4 ARIA Reference Point ID Ref_pnt_RtF emur ARIA Dosage Given to Date in Gy 16 ARIA Session Dosage Given in Gy 4 ARIA Reference Point ID Ref_pnt_T5 ARIA Dosage Given to Date in Gy 16 ARIA Session Dosage Given in Gy 4 ARIA Plan ID L1-L3_Spine ARIA Plan Name L1-L3_Spine ARIA Fractions Treated to Date 4 ARIA Prescribed Dose Per Fraction in Gy 4 ARIA Prescribed Dose in cGY 2,000 ARIA Site Being Treated Extremity-R tFemur ARIA Site Being Treated Spinal Cord-L1-L3 ARIA Site Being Treated Spinal Cord-T5 ARIA 03/19/2025 2:09 PM EST us Bhavesh Poole MD RADIATION ONCOLOGY ORDERABLES Fi nal Result Performing Organization Address City/State/[facility] Co de Phone Number ARI [address] [facility] [place] [address] documented in this encounter Visit Diagnoses Not on filedocumented in this encounter Care Teams Endoscopy Tech Relationship Specialty Start Date End Date Idania Cobb RN Oncology Nurse Navigator 01/22/25 Maxx Khan MD [address] [place] [address] Medical Oncologist Internal Medicine-Medical Oncology 02/18/25 Obdulia Mazariegos, ANTHONY Registered Nurse 02/18/25 Bhavesh Poole MD 1 [place] [address] Radiation Oncologist Radiology-Radiation Oncology 02/24/25 Elena Buck, Clerical Staff Financial Counselor 02/27/25 documented as of this encounter
--- OUTSIDE RECORDS SUMMARY | 2025-04-22 04:57 | XMS_ITS | Encounter Summary ---
Author Organization [place] [address] Care Team Providers Care Regulator Mechanic Name Role Phone Idania Cobb RN Unavailable Maxx Khan MD Unavailable [phone] Obdulia Mazariegos RN Unavailable Unavailable Bhavesh Poole MD Unavailable Elena Buck Clerical Staff Unavailable Francisca Oconnor RN Unavailable Unava ilable Reason for Visit * Reason Comments Financial Counseling Encounter Details Date Type Department Care Team (Late st Contact Info) Description 02/27/2025 Patient Outreach [facility] [place] [address] Elena Buck, Clerical Staff Financial Counseling Social History Tobacco Use Types Packs/Day Years [...] as of this encounter Progress Notes * Elena Buck, Clerical Staff - 02/27/2025 3:20 PM EDT Rosario Magda [phone] qualifies for an indigent drug program. Assistance type: Free Drug Status: Approved Free Drug Drug: Perjeta Company: [employer] Phone number: [phone] Treatment location: [facility] Next date of service: 03/02/25 Free Drug Effective date from:: 02/25/25 Free Drug Term Date:: 04/29/25 Notes: Pt first shipment will be replacement. Her drug will arrive 03/11/25 for her 03/02/25 visit. They asked that when she has her appt to call and schedule next shipment because it will then be upfront shipments. Guarantor flag added: Yes First drug shipment placed: Yes documented in this encounter Miscellaneous Notes * Telephone Encounter - Peyton Raphael CPhT - 03/18/2025 12:44 PM EST [facility] Received delivery of replacement Perjeta (840mg) for [facility] 03/02 [facility]. Medication will be sent to [facility] to [facility] back in stock. Charge has already been dropped for a renay. * Telephone Encounter - Cristal Hahn CPhT - 03/11/2025 8:[address] [facility] Received shipment confirmation for replacement via fax. Will arrive In 7-10 business days. ID #: [id number] * Telephone Encounter - Peyton Raphael CPhT - 03/03/2025 12:39 PM EST [facility] Shipment arriving 03/11 is NOT for replacement as this is coming from [facility]. Per conversation with [employer][phone]) replacement for Perjeta 840mg dos 03/02 is currently under review and could take up to 5-7 business days for processing. Shipping radu will be faxed to specialty. * Telephone Encounter - Peyton Raphael CPhT - 03/03/2025 9:04 AM EST [facility] Patient was tx with Perjeta 840mg 03/02 @ [place]. REPLACEMENT has NOT arrived but dos fell into work que so charge will be changed to a renay. Replacement to arrive 03/11 Order#: [id number] Next shipment will be upfront. documented in this encounter Plan of Treatment Upcoming Encounters Date Type Department Care Team (Late st Contact Info) Description 05/01/2025 12:30 PM EST Appointment [facility] [address] Maxx Khan MD [address] [place] [address] [address] [place], [place] [id number] 05/04/2025 8:15 AM EST Appointment [facility] [place], [place] [id number] 05/04/2025 8:45 AM EST Appointment [facility] [place], [place] [phone] Maxx Khan MD [address] [place] [address] [place] [address] 05/04/2025 9:00 AM EST Appointment [facility]N [place], [place] [address]17 05/28/2025 10:30 AM EST Appointment [facility] [place] [address] Maxx Khan MD [address] [place] [address] [facility] [place] [place] [address] 06/26/2025 10:15 AM EST Appointment [facility] [place] [address] Consuelo Ugarte, LEIF [address] [place], [place] [address] documented as of this encounter Goals Goal Patient Goal Type Associated Problems Recent Progress Patient-Stated? Author Breast Health Breast Health Yenni Funk, ANTHONY Note: Patient acknowledges understanding of new diagnosis, plan of care, available resources and how to contact Nurse Navigator with any future questions or concerns. documented as of this encounter Visit Diagnoses Not on filedocumented in this encounter Care Teams Regulator Mechanic Relationship Specialty Start Date End Date Idania Cobb RN Oncology Nurse Navigator 01/22/25 Maxx Khan MD [address] [place], [place] [phone] Medical Oncologist Internal Medicine-Medical Oncology 02/18/25 Obdulia Mazariegos RN Registered Nurse 02/18/25 Bhavesh Poole MD 1 [place] [address] Radiation Oncologist Radiology-Radiation Oncology 02/24/25 Elena Buck, Clerical Staff Financial Counselor 02/27/25 Francisca Oconnor, ANTHONY Registered Nurse Infusion Therapy 03/02/25 03/02/25 documented as of this encounter
--- OUTSIDE RECORDS SUMMARY | 2025-04-22 04:57 | XMS_ITS | Clinical Summary ---
Author Organization [facility] Address [address] [place] [address] Phone Care Team Providers Care Curator Of Photography And Prints Name Role Phone Idania Cobb RN Unavailable Maxx Khan MD Unavailable [phone] Obdulia Mazariegos RN Unavailable Unavailable Bhavesh Poole MD Unavailable Elena Buck Clerical Staff Unavailable Allergies No known active allergies Medications aspirin 81 mg Oral Tablet, Delayed Release (E.C.) Take 81 mg by mouth daily. Active atorvastatin (LIPITOR) 40 mg Oral Tablet Take 40 mg by mouth daily. Active DILT-XR 240 mg Oral Capsule,Degradab le Cnt Release Take 240 mg by mouth daily. Active lisinopriL (PRINIVIL;ZESTRI L) 20 mg Oral Tablet tablet Take 20 mg by mouth daily. Active nalOXone (NARCAN) 4 mg/actuation Nasl Duke, Non-AerosolIndic ations:Invasive ductal carcinoma of right breast, stage 4 (HCC) 0.1 mL by Nasal route as needed for Opioid Reversal. Duke the contents of one device (0.1mL) into one nostril upon signs of opioid overdose. Call 911. May repeat dose in other nostril if no response within 2-3 minutes. 1 Each 02/19/20 25 Active prochlorperazine (COMPAZINE) 10 mg Oral TabletIndication s:Invasive ductal carcinoma of breast, female, right (HCC) Take 1 tablet by mouth every 6 hours as needed for nausea and vomiting. 30 Tablet 5 02/19/20 25 Active traMADoL 25 mg Oral TabletIndication s:Claustrophobia Take 50 mg by mouth every 6 hours as needed for Pain. 12 Tablet 02/20/20 25 Active Additional Information Patient not taking.Reason: Pt electing to not take the medication (pt states not tried that yet), Reported on 04/13/2025 lidocaine-priloc tim (EMLA) Top CreamIndications :Invasive ductal carcinoma of right breast, stage 4 (HCC) Apply topically as needed for Pain. Apply one nickel sized glob over port approx 1 hour before appt. DO NOT RUB IN. Cover with plastic wrap 30 g 02/26/20 25 Active ondansetron (ZOFRAN) 4 mg Oral TabletIndication s:Invasive ductal carcinoma of breast, female, right (HCC),Chemothera py-induced nausea Take 1 Tablet by mouth every 6 hours as needed for Nausea. 30 Tablet 1 03/09/20 25 Active diphenoxylate-at ropine (LOMOTIL) 2.5-0.025 mg Oral TabletIndication s:Chemotherapy induced diarrhea Take 2.5 mg by mouth 3 times daily as needed for Diarrhea. 90 Tablet 03/23/20 25 Active BACTRIM DS 800-160 mg Oral Tablet 1 Tablet. 04/08/20 25 Active oxymetazoline 0.025 % Nasl [facility], Non-AerosolIndic ations:Nosebleed 1 Duke by Nasal route 2 times daily as needed. 30 mL 04/13/20 25 Active dexAMETHasone (DECADRON) 4 mg Oral TabletIndication s:Invasive ductal carcinoma of breast, female, right (HCC) Take 2 tabs (8 mg) by mouth twice daily for 5 doses (start day before chemo and skip morning of treatment). 28 Tablet 1 04/13/20 25 Active lidocaine 2 % MM SolutionIndicati ons:Mucositis due to chemotherapy Mix with Benadryl and Nystatin. Swish and swallow 10-20 ml of final mixture by mouth every 3-4 hours as needed. 100 mL 04/20/20 25 Active nystatin (MYCOSTATIN) 100,000 unit/mL Oral SuspensionIndica tions:Mucositis due to chemotherapy Mix with Benadryl and Lidocaine. Swish and swallow 10-20 ml of final mixture by mouth every 3-4 hours as needed. 473 mL 04/20/20 25 Active diphenhydrAMINE (BENYLIN) 12.5 mg/5 mL Oral LiquidIndication s:Mucositis due to chemotherapy Mix with Lidocaine and Nystatin. Swish and swallow 10-20 ml of final mixture by mouth every 3-4 hours as needed. 472 mL 04/20/20 25 Active dexAMETHasone (DECADRON) 4 mg Oral TabletIndication s:Invasive ductal carcinoma of breast, female, right (HCC) Take 2 tabs (8 mg) by mouth twice daily for 5 doses (start day before chemo and skip morning of treatment). 28 Tablet 1 02/19/20 25 025 Discontin ued(Reord er) oxymetazoline 0.025 % Nasl [facility], Non-AerosolIndic ations:Nosebleed 1 Duke by Nasal route 2 times daily as needed. 30 mL ML 03/23/20 25 025 Discontin ued(Reord er) oxymetazoline 0.025 % Nasl [facility], Non-AerosolIndic ations:Nosebleed 1 Duke by Nasal route 2 times daily as needed. 30 mL 03/24/20 25 025 Discontin ued(Reord er) Active Problems Problem Noted Date Diagnosed Date Secondary malignant neoplasm of bone 03/01/2025 Invasive ductal carcinoma of breast, female, rig ht 02/06/2025 Cancer Staging:Clinical stage from 01/20/2025:Stage IV(cT3, cN1(f), cM1, G3, ER+, WI+, HER2+) - Signed by Tresa Jacinto DO on 02/17/2025 Invasive ductal carcinoma of breast, female, lef t 02/06/2025 Cancer Staging:Clinical stage from 01/20/2025:Stage IA(cT1c, cN0, cM0, G2, ER+, WI+, HER2-) - Signed by Tresa Jacinto DO [...] non functioning; unable to retract records in [place] to review Resolved Problems Problem Noted Date Diagnosed Date Resolved Date Bilateral breast cancer 01/22/202501/28 Overview (01/22/2025): melita IDC and positive Right Axillary node Encounters Date Type Department Care Team Description 04/20/2025 Telephone [place] [address] Maxx Khan MD Other (Requesting to speak to RN ) 04/14/2025 Specialty Pharmacy [facility] [address] [place] [address] Maxx Khan MD Pharmacy Specialty Management ([facility] ) 04/13/2025 10:30 AM EST - 04/13/2025 11:59 PM EST Hospital Encounter [facility] [place], [place] [id number] Ankush Jean RN Invasive ductal carcinoma of breast, female, right (HCC) (Primary Dx) Discharge Disposition: Home or Self Care 04/13/2025 10:04 AM EST - 04/13/2025 10:29 AM EST Hospital Encounter [place] [address] Maxx Khan MD Invasive ductal carcinoma of right breast, stage 4 (HCC) (Primary Dx); Encounter for chemotherapy management; Encounter for antineoplastic chemotherapy; Nosebleed; Invasive ductal carcinoma of breast, female, right (HCC) Discharge Disposition: Home or Self Care 04/13/2025 9:45 AM EST - 04/13/2025 10:03 AM EST Hospital Encounter [facility] [place] [id number] Invasive ductal carcinoma of breast, female, right (HCC) (Primary Dx) Discharge Disposition: Home or Self Care 04/06/2025 Telephone [facility] [place] [address] Maxx Khan MD Symptom Call (Bladder infection symptoms per pt, pressure, started this past Sunday.) 03/24/2025 Telephone [facility] [place] [address] Rossana Vergara, Clerical Staff Integrative Oncology Referral (wig fitting) 03/24/2025 Telephone [facility] [place] [id number] Maxx Khan MD Medication Management (oxymetazoline 0.025 % Nasl [facility], Non-Aerosol) 03/23/2025 9:00 AM EST - 03/23/2025 11:59 PM EST Hospital Encounter [place] [address] Ankush Jean RN Invasive ductal carcinoma of breast, female, right (HCC) (Primary Dx) Discharge Disposition: Home or Self Care 03/23/2025 8:25 AM EST - 03/23/2025 8:59 AM EST Hospital Encounter [facility] [place] [id number] Maxx Khan MD Invasive ductal carcinoma of right breast, stage 4 (HCC) (Primary Dx); Encounter for chemotherapy management; Encounter for antineoplastic chemotherapy; Encounter for monitoring cardiotoxic drug therapy; Nosebleed; Chemotherapy induced diarrhea Discharge Disposition: Home or Self Care 03/23/2025 8:15 AM EST - 03/23/2025 8:24 AM EST Hospital Encounter [place] [address] Invasive ductal carcinoma of breast, female, right (HCC) (Primary Dx) Discharge Disposition: Home or Self Care 03/23/2025 Telephone [place] [address] Maxx Khan MD Schedule Appointment (ECHO ) 03/20/2025 1:42 PM EST - 03/20/2025 11:59 PM EST Hospital Encounter [facility] [place] [address] Bhavesh Poole MD Secondary malignant neoplasm of bone (HCC) (Primary Dx) Discharge Disposition: Home or Self Care 03/20/2025 Orders Only [facility] Cancer Care [facility] [place] [address] Bhavesh Poole MD 03/20/2025 Orders [place] [address] Tc Hickey, PharmD 03/19/2025 1:43 PM EST - 03/19/2025 11:59 PM EST Hospital Encounter [facility] [place] [address] Discharge Disposition: Home or Self Care 03/19/2025 Orders Only [facility] Cancer Care [facility] [address] [place] [address] Bhavesh Poole MD 03/18/2025 1:26 PM EST - 03/18/2025 11:59 PM EST Hospital Encounter [facility] [place] [address] Discharge Disposition: Home or Self Care 03/18/2025 Results Follow-Up [facility] [place] [address] Krumme, Esperanza, SMOKEHOUSE OPERATOR URINALYSIS REFLEX, EXTRA DELGADO URINE CX, URINE CULTURE (NO STAIN) 03/18/2025 Orders Only [facility] Cancer Care [facility] [place] [address] Bhavesh Poole MD 03/17/2025 11:59 AM EST - 03/17/2025 11:59 PM EST Hospital Encounter [place] [address] Discharge Disposition: Home or Self Care 03/17/2025 11:42 AM EST - 03/17/2025 11:58 AM EST Hospital Encounter [facility] [place] [place] [address] Invasive ductal carcinoma of breast, female, left (HCC) (Primary Dx); Invasive ductal carcinoma of breast, female, right (HCC) Discharge Disposition: Home or Self Care 03/17/2025 Orders Only [facility] Cancer Care [facility] [place] [address] Bhavesh Poole MD 03/16/2025 11:11 AM EST - 03/16/2025 11:59 PM EST Hospital Encounter [facility] [place] [address] Discharge Disposition: Home or Self Care 03/16/2025 10:43 AM EST - 03/16/2025 11:10 AM EST Hospital Encounter [facility] [place] [address] Discharge Disposition: Home or Self Care 03/16/2025 Orders Only [facility] [place] [address] Maxx Khan MD Invasive ductal carcinoma of breast, female, right (HCC) (Primary Dx) 03/16/2025 Orders Only [facility] [place] [address] Esperanza Monsalve APRN Acute cystitis with hematuria (Primary Dx) 03/16/2025 Orders Only [facility] Cancer Care [facility] [place] [address] Bhavesh Poole MD 03/16/2025 Telephone [facility] [place] [address] Maxx Khan MD Symptom Call (Burning when urinates, backache (started 03/14)) 03/13/2025 Telephone [facility] [place] [address] [place] [address] Mary Saleh, Clerical Staff Follow-up (Port placement follow up ) 03/11/2025 1:00 PM EST - 03/11/2025 11:59 PM EST Hospital Encounter [facility] [place] [address] Discharge Disposition: Home or Self Care 03/09/2025 1:30 PM EST - 03/09/2025 11:59 PM EST Hospital Encounter [facility] [place] [address] Esperanza Monsalve APRN Invasive ductal carcinoma of breast, female, right (HCC) (Primary Dx); Chemotherapy-induced nausea; Chemotherapy follow-up examination; Chemotherapy induced neutropenia Discharge Disposition: Home or Self Care 03/09/2025 1:15 PM EST - 03/09/2025 1:29 PM EST Hospital Encounter [facility] [place] [address] Invasive ductal carcinoma of breast, female, left (HCC) (Primary Dx); Invasive ductal carcinoma of breast, female, right (HCC) Discharge Disposition: Home or Self Care 03/09/2025 Telephone [facility] [place] [address] Yusra Mcdaniels RN 03/05/2025 Orders Only [facility] [place] [address] Esperanza Monsalve APRN Invasive ductal carcinoma of breast, female, right (HCC) (Primary Dx) 03/04/2025 Telephone [facility] [place] [address] Maxx Khan MD Follow-up (Chemo callback ) 03/03/2025 Specialty Pharmacy [facility] [address], [place] [id number] Maxx Khan MD Pharmacy Specialty Management (Perjeta 420mg) 03/02/2025 8:29 AM EST - 03/02/2025 11:59 PM EST Hospital Encounter [facility] [place], [place] [id number] Invasive ductal carcinoma of breast, female, right (HCC) (Primary Dx) Discharge Disposition: Home or Self Care 03/02/2025 7:55 AM EST - 03/02/2025 8:28 AM EST Hospital Encounter [place] [address] Maxx Khan MD Invasive ductal carcinoma of right breast, stage 4 (HCC) (Primary Dx); Encounter for antineoplastic chemotherapy; Port-A-Cath in place Discharge Disposition: Home or Self Care 03/02/2025 7:44 AM EST - 03/02/2025 7:54 AM EST Hospital Encounter [facility] [place] [address] Invasive ductal carcinoma of breast, female, right (HCC) (Primary Dx) Discharge Disposition: Home or Self Care 03/02/2025 Patient Outreach [facility] [place] [address] Idania Cobb, shells inspector Nurse Navigation (F2F) 03/02/2025 Orders Only [facility] [place] [id number] Tc Hickey, PharmD 03/02/2025 Telephone [facility] [place] [address] Maxx Khan MD Reschedule (Radiation ) 02/27/2025 9:25 AM EDT - 02/27/2025 11:59 PM EDT Hospital Encounter [facility] [address] [facility] [place] [id number] Maxx Khan MD Mikhail, Attef A, MD Invasive ductal carcinoma of right breast, stage 4 (HCC) Discharge Disposition: Home or Self Care 02/27/2025 Patient Outreach [facility] [place] [address] Elena Buck, Clerical Staff Financial Counseling 02/27/2025 Telephone [facility] [place] [address] Maxx Khan MD Patient Question (question about medication ) 02/27/2025 Telephone [facility] [place] [address] Rossana Vergara, Clerical Staff Integrative Oncology Referral (massage therapy) 02/25/2025 1:51 PM EDT - 02/25/2025 11:59 PM EDT Hospital En[facility] [place] [address] Bhavesh [place] MD Secondary malignant neoplasm of bone (HCC) Discharge Disposition: Home or Self Care 02/25/2025 12:35 PM EDT - 02/25/2025 1:50 PM EDT Hospital Encounter [facility] [place] [address] Bhavesh Poole MD Secondary malignant neoplasm of bone (HCC) (Primary Dx) Discharge Disposition: Home or Self Care 02/25/2025 12:33 PM EDT - 02/25/2025 12:34 [place] [address] Discharge Disposition: Home or Self Care 02/25/2025 11:33 AM EDT - 02/25/2025 12:32 PM EDT Hospital Encounter [facility] [place] [place] [address] Bhavesh Poole MD Invasive ductal carcinoma of breast, female, right (HCC) (Primary Dx); Invasive ductal carcinoma of breast, female, left (HCC); Secondary malignant neoplasm of bone (HCC) Discharge Disposition: Home or Self Care 02/25/2025 9:35 AM EDT - 02/25/2025 11:32 AM EDT Hospital Encounter [facility] [address] [place] [id number] Maxx Khan MD Invasive ductal carcinoma of right breast, stage 4 (HCC) Discharge Disposition: Home or Self Care 02/25/2025 Results Follow-Up Cancer [place] [id number] Maxx Khan MD EC ECHOCARDIOGRAM COMPLETE W DOPPLER AND COLOR FLOW MAPPING 02/25/2025 [place] [address] Maxx Khan MD Medication Management (emla cream ) 02/25/2025 Social Work [facility] Cancer [place] [address] Samir Culver MSW 02/25/2025 Results Follow-Up Cancer [place] [address] Maxx Khan MD MRI COMPLETE SPINAL SCREENING W WO CONTRAST, MRI BRAIN W WO CONTRAST 02/23/2025 1:58 PM EDT - 02/23/2025 11:59 PM EDT Hospital Encounter [facility] MRI [address] [place] [address] Maxx Khan MD Invasive ductal carcinoma of right breast, stage 4 (HCC) Discharge Disposition: Home or Self Care 02/23/2025 1:58 PM EDT - 02/23/2025 11:59 PM EDT Hospital Encounter [facility] MRI [address] [place] [address] Maxx Khan MD Invasive ductal carcinoma of right breast, stage 4 (HCC) Discharge Disposition: Home or Self Care 02/20/2025 Social Work [facility] Cancer Care [facility] [place] [address] Xiomara Mackey MSW 02/19/2025 Orders Only [facility] [place] [address] [place] [address] Rossana Ashley, JULIAN Invasive ductal carcinoma of right breast (HCC) (Primary Dx) 02/19/2025 Telephone [facility] [place] [address] [place] [address] Mary Saleh, Clerical Staff Procedure (PAC Insert ) 02/19/2025 Telephone [facility] [place], [place] [id number] Annalisa Cohn, Clerical Staff Integrative Oncology Referral 02/19/2025 Telephone [facility] [place], [place] [id number] Kristina Beauchamp, Clerical Staff New Patient (Ref Bill) 02/18/2025 12:36 PM EDT - 02/18/2025 11:59 PM EDT Hospital Encounter [place] [address] Maxx Khan MD Invasive ductal carcinoma of right breast, stage 4 (HCC) (Primary Dx); Invasive ductal carcinoma of breast, female, right (HCC) Discharge Disposition: Home or Self Care 02/18/2025 12:21 PM EDT - 02/18/2025 12:35 PM EDT Hospital Encounter [place] [address] Invasive ductal carcinoma of breast, female, right (HCC) Discharge Disposition: Home or Self Care 02/18/2025 Refill [facility] [place] [address] Maxx Khan MD Medication Management (Pharmacy out of 2 medications ) 02/18/2025 Social Work [facility] Cancer Care [facility] [address] [place] [address] Xiomara Mackey, NEEDLE STRAIGHTENER 02/18/2025 Telephone [facility] [place] [id number] Maxx Khan MD Schedule Appointment (D1C1, PORT, ECHO, SPINAL MRI, BRAIN MRI) 02/18/2025 Telephone [facility] [address] [place] [address] Jammie Hogue, Clerical Staff Follow-up (Billing Question) 02/17/2025 Results Follow-Up [facility] [address] [place] [address] Celina Mckay, [facility] GENETIC SCANNING 02/17/2025 Telephone [facility] [address] [place], [place] [id number] Celina Mckay, [facility] Results ([facility]- Negative) 02/17/2025 Social Work [facility] Cancer [facility] [address] [place] [facility] Samir Culver, NEEDLE STRAIGHTENER 02/16/2025 Orders Only [facility] [address] [place], [place] [id number] Provider, Historical 02/12/2025 Results Follow-Up [facility] [place] [address] Tresa Jacinto, DO PET CT SKULL BASE TO MID THIGH 02/11/2025 2:25 PM EDT - 02/11/2025 11:59 PM EDT Hospital Encounter [facility] CT [place] [id number] Tresa Jacinto, DO Pre-procedural laboratory examination (Primary Dx); Invasive ductal carcinoma of breast, female, right (HCC); Invasive ductal carcinoma of breast, female, left (HCC) Discharge Disposition: Home or Self Care 02/10/2025 Telephone [facility] [place] [address] Annalisa Cohn, Clerical Staff Integrative Oncology Referral 02/09/[address] [facility] [address] [place] [facility] Yenni Shankar, RN Follow-up 02/09/2025 Telephone [facility] [place] [address] Maxx Khan MD New Patient 02/06/2025 2:30 PM EDT - 02/06/2025 11:59 PM EDT Hospital Encounter [facility] [address] [place] [address] Ladonna Ceja MA Genetic testing (Primary Dx) Discharge Disposition: Home or Self Care 02/06/2025 2:00 PM EDT - 02/06/2025 2:29 PM EDT Hospital Encounter [facility] [address] [place], [place] [id number] Celina Mckay CGC Genetic screening (Primary Dx) Discharge Disposition: Home or Self Care 02/06/2025 12:55 PM EDT - 02/06/2025 1:59 PM EDT Hospital Encounter [facility] [place] [address] Tresa Jacinto, Invasive ductal carcinoma of breast, female, right (HCC) (Primary Dx); Invasive ductal carcinoma of breast, female, left (HCC); Axillary lymphadenopathy; Thickening of skin of breast Discharge Disposition: Home or Self Care 02/06/[address] [facility] [place] [address] Yenni Shankar, RN Other (Exercise RX) 02/06/2025 Social Work [facility] Cancer Care [facility] [address] [place] [facility] Xiomara Mackey MSW 02/02/2025 7:50 AM EDT Tumor Board [place] [address] 01/22/2025 1:26 PM EDT - 01/22/2025 11:59 PM EDT Hospital Encounter [facility] [place] [address] Bilateral malignant neoplasm of breast in female, unspecified estrogen receptor status, unspecified site of breast (HCC) (Primary Dx) Discharge Disposition: Home or Self Care 01/22/2025 Patient Outreach [place] [address] Idania Cobb, shells inspector Nurse Navigation (Patient Intake/Intro) 01/22/[address] [facility] [place] [address] Rachel Jeronimo RN Other (MRI BILL - Rally for Cure?) 01/22/2025 Social Work [facility] [place] [address] Xiomara Mackey, JANET 01/21/2025 Social Work [facility] [place] [address] Xiomara Mackey, NEEDLE STRAIGHTENER from Last 3 Months Immunizations Immunization Administration Dates Next Due Tdap 12/30/2008 Surgical History Surgery Date Site/Laterality Comments BREAST BIOPSY Left 1999 KIDNEY SURGERY 04/30/2016 - 04/29/2017 Left [place] ABDOMINAL HERNIA REPAIR 04/30/2020 - 04/29/2021 [place] UTERINE FIBROID SURGERY 04/30/2019 - 04/29/2020 laproscopic PARTIAL NEPHRECTOMY 04/30/2016 - 04/29/2017 Left MM US BREAST BIOPSY ADDITIONAL RIGHT 01/20/2025 Right MM US BREAST BIOPSY ADDITIONAL RIGHT 01/20/2025 [facility] MM US BREAST BIOPSY LEFT 01/20/2025 Left MM US BREAST BIOPSY LEFT 01/20/2025 Shawnee Burnette MD [facility] MM US BREAST BIOPSY RIGHT 01/20/2025 Right MM US BREAST BIOPSY RIGHT 01/20/2025 Shawnee Burnette MD [facility] IR PORT PLACEMENT EQUAL OR > 5 YEARS 02/27/2025 IR PORT PLACEMENT EQUAL OR > 5 YEARS 02/27/2025 Jeannine Hoyos MD [facility]TT IR Medical History Medical History Date Comments History of atrial fibrillation n ormal rhythm since 2017 Obesity (BMI 35.0-39.9 witho ut comorbidity) 01/02/2025 High cholesterol 01/02/2025 Hypertension 01/02/2025 Kidney stones 01/02/2025 Anxiety 01/02/2025 Bilateral breast cancer (HCC) 01/22/2025 bi l Invasive Ductal Carcinoma and positive Right Axillary node Family History Medical History Relation Name Comments Colon Cancer Maternal Aunt Breast Cancer Maternal Cousin Lymphoma Mother 40; Tuberculosis Mother Lymphoma Son 1 States ++ mutat ion (unsure name but will find out) Relation Name Status Comments Daughter Alive Half-Brother 1 Alive Half-Brother 2 Alive Maternal Aunt Maternal Cousin (Age 20s) Maternal Grandfather Maternal Grandmother Mother Other 1 Alive Other 2 Alive Other 3 Alive Other 4 Alive Other 5 Alive Other 6 Alive Paternal Grandfather Alive Paternal Grandmother Alive Son 1 Alive Son 2 Alive Social History Tobacco Use Types Packs/Day Years [...] on file Sexual Orientation Not on file Obstetrics History Para Term AB IAB SAB Ectopic Multiple Livin g Live Births 5 3 3 Date Outcome GA Total Labor Labor/2nd/3rd Weight Sex Type Anes PTL Ana A1 A5 Name Clin Para Para Para Last Filed Vital Signs Vital Sign Reading Time Taken Comments Blood Pressure 148/73 04/13/2025 2:49 PM EST Pulse 84 04/13/2025 2:49 PM EST Temperature 37 C (98.6 F) 04/13/2025 10:51 AM EST Respiratory Rate 16 04/13/2025 2:49 PM EST Oxygen Saturation 95% 04/13/2025 2:07 PM EST Inhaled Oxygen Concentration - - Weight 103.1 kg (227 lb 6.4 oz) 12/15/2 025 10:51 AM EST Height 162.6 cm (5' 4 ) 04/13/2025 10:5 1 AM EST Body Mass Index 39.03 04/13/2025 10:51 AM EST Plan of Treatment Upcoming Encounters Date Type Department Care Team (Late st Contact Info) Description 05/01/2025 12:30 PM EST Appointment [facility] [place] [address] [place] [address] Maxx Khan MD [address] [facility] [place] [address] 05/04/2025 8:15 AM EST Appointment [place] [address] 05/04/2025 8:45 AM EST Appointment [place] [address] Maxx Khan MD 1 [facility] [place] [place] [address] 05/04/2025 9:00 AM EST Appointment [facility] [place], [place] [id number] 05/28/2025 10:30 AM EST Appointment [facility] [place] [address] Maxx Khan MD 1 [facility] [place] [place] [address] 06/26/2025 10:15 AM EST Appointment [facility] [place] [address] Consuelo Ugarte, LEIF 1 [facility] [place] [place] [address] Health Maintenance Due Date Last Done Comments COVID-19 Vaccine (#1) 1961 Annual Wellness Exam 1964 Hepatitis C Screening 1979 Pneumococcal Vaccine 50+ (1 of 2 - PCV) 1980 Zoster (1 of 2) 1980 Cervical Cancer Screening 1982 Pap Smear 1982 HPV/Pap Cotest 1991 Cologuard 2006 Colon Cancer Screening 2006 Colonoscopy 2006 FIT 2006 Sigmoidoscopy 2006 Virtual Colonography 2006 RSV or 60+ (1 - Ris k 50-74 years 1-dose series) 2011 DTaP/TDaP/Td (2 - Td or Tdap) 12/30/2018 12/30/2008 Influenza Vaccine (#1) 2024 Breast Cancer Screening 01/02/2027 01/02/2025 Hepatitis B Vaccine Aged Out No longe r eligible based on patient's age to complete this topic Meningococcal B Vaccine Aged Out No l onger eligible based on patient's age to complete this topic Goals Goal Patient Goal Type Associated Problems Recent Progress Patient-Stated? Author [facility] Yenni uFnk, RN Note: Patient acknowledges understanding of new diagnosis, plan of care, available resources and how to contact Nurse Navigator with any future questions or concerns. Procedures Procedure Name Priority Date/Time Associated Diagnosis Comments COMPREHENSIVE METABOLIC PANEL STAT 04/13/2025 10:01 AM EST Invasive ductal carcinoma of breast, female, right (HCC) CBC WITH DIFF STAT 04/13/2025 10:01 AM EST Invasive ductal carcinoma of breast, female, right (HCC) MAGNESIUM LEVEL STAT 04/13/2025 10:01 AM EST Invasive ductal carcinoma of breast, female, right (HCC) COMPREHENSIVE METABOLIC PANEL STAT 03/23/2025 8:22 AM EST Invasive ductal carcinoma of breast, female, right (HCC) CBC WITH DIFF STAT 03/23/2025 8:22 AM EST Invasive ductal carcinoma of breast, female, right (HCC) MAGNESIUM LEVEL STAT 03/23/2025 8:22 AM EST Invasive ductal carcinoma of breast, female, right (HCC) RADIATION TREATMENT SUMMARY Routine 03/20/2025 2:07 PM EST RADIATION TREATMENT SUMMARY Routine 03/19/2025 2:09 PM EST RADIATION TREATMENT SUMMARY Routine 03/18/2025 2:07 PM EST RADIATION TREATMENT SUMMARY Routine 03/17/2025 12:31 PM EST COMPREHENSIVE METABOLIC PANEL STAT 03/17/2025 11:52 AM EST Invasive ductal carcinoma of breast, female, right (HCC) CBC WITH DIFF STAT 03/17/2025 11:52 AM EST Invasive ductal carcinoma of breast, female, right (HCC) URINALYSIS REFLEX Routine 03/16/2025 12: 27 PM EST Acute low back pain without sciatica, unspecified back pain laterality Burning with urination UA W/REFLEX TO CULTURE Routine 12:27 PM EST Acute low back pain without sciatica, unspecified back pain laterality Burning with urination URINE CULTURE (NO STAIN) Routine 03/16/2025 12:27 PM EST Acute low back pain without sciatica, unspecified back pain laterality Burning with urination RADIATION TREATMENT SUMMARY Routine 03/16/2025 12:01 PM EST COMPREHENSIVE METABOLIC PANEL STAT 03/09/2025 1:32 PM EST Invasive ductal carcinoma of breast, female, right (HCC) CBC WITH DIFF STAT 03/09/2025 1:32 PM EST Invasive ductal carcinoma of breast, female, right (HCC) COMPREHENSIVE METABOLIC PANEL STAT 03/02/2025 7:54 AM EST Invasive ductal carcinoma of breast, female, right (HCC) CBC WITH DIFF STAT 03/02/2025 7:54 AM EST Invasive ductal carcinoma of breast, female, right (HCC) MAGNESIUM LEVEL STAT 03/02/2025 7:54 AM EST Invasive ductal carcinoma of breast, female, right (HCC) IR PORT PLACEMENT EQUAL OR > 5 YEARS STAT 02/27/2025 11:03 AM EDT Invasive ductal carcinoma of right breast, stage 4 (HCC) PT / INR Routine 02/27/2025 9:[address] CHEST RADIATION THERAPY PLANNING WO CONTRAST Routine 02/25/2025 3:05 PM EDT Secondary malignant neoplasm of bone (HCC) EC ECHOCARDIOGRAM COMPLETE W DOPPLER AND COLOR FLOW MAPPING Routine 02/25/2025 11:02 AM EDT Invasive ductal carcinoma of right breast, stage 4 (HCC) MRI COMPLETE SPINAL SCREENING W WO CONTRAST STAT 02/23/2025 3:16 PM EDT Invasive ductal carcinoma of right breast, stage 4 (HCC) MRI BRAIN W WO CONTRAST STAT 02/23/2025 3:15 PM EDT Invasive ductal carcinoma of right breast, stage 4 (HCC) COMPREHENSIVE METABOLIC PANEL STAT 02/18/2025 12:34 PM EDT Invasive ductal carcinoma of breast, female, right (HCC) CBC WITH DIFF STAT 02/18/2025 12:34 PM EDT Invasive ductal carcinoma of breast, female, right (HCC) GENETIC SCANNING Routine 02/16/2025 9:[address] SKULL BASE TO MID THIGH Routine 02/11/2025 4:24 PM EDT Invasive ductal carcinoma of breast, female, right (HCC) Invasive ductal carcinoma of breast, female, left (HCC) GLUCOSE METER POC Routine 02/11/2025 2:4 0 PM EDT PATHOLOGY TISSUE REQUEST Routine 02/06/2025 3:52 PM EDT Invasive ductal carcinoma of breast, female, right (HCC) Invasive ductal carcinoma of breast, female, left (HCC) MM MAMMO DIGITAL LASHAUN DIAGN BILAT Routine 01/02/2025 2:24 PM EDT Mass of right breast, unspecified quadrant from Last 3 Months or Most Recently Relevant to Health Maintenance Results * (ABNORMAL) CBC WITH DIFF (04/13/2025 10:01 AM EST) Only the most recent of6 resultswithin the time period is included. WBC 8.3 3.7 - 10.3 x10(3)/mc L 04/13/2025 10:09 AM [facility] RBC 3.49(L) 3.90 - 5.20 x10(6)/mc L 04/13/2025 10:09 AM [facility] Hgb 10.5(L) 11.2 - 15.7 g/dL 04/13/2025 10:09 AM [facility] Hct 31.2(L) 34.0 - 45.0 % 04/13/2025 10:09 AM [facility] MCV 89.4 80.0 - 100.0 fL 04/13/2025 10:09 AM [facility] MCH 30.1 26.0 - 34.0 pg 04/13/2025 10:09 AM [facility] MCHC 33.7 30.7 - 35.5 g/dL 04/13/2025 10:09 AM [facility] RDW 16.1(H) <=14.9 % 04/13/2025 10:09 AM [facility] Platelet 325 155 - 369 x10(3)/mc L 04/13/2025 10:09 AM [facility] MPV 8.2(L) 8.8 - 12.5 fL 04/13/2025 10:09 AM [facility] Neut # Prelim 6.3(H) 1.6 - 6.1 x10(3)/mc L 04/13/2025 10:09 AM [facility] Comment:Preliminary automate d absolute neutrophil count. Value may change if manual differential is indicated. Neut Percent 75.3 % 04/13/2025 10:09 AM [facility] Comment:Neutrophils equals s egs plus bands Imm Gran% 2.3 % 04/13/2025 10:09 AM [facility] Comment:Automated count of m etamyelocytes, myelocytes and promyelocytes. IG >1% represents a left shift and provides an early indication of an infection or inflammatory process. Lymph Percent 10.2 % 04/13/2025 10:09 AM EST [facility] Beltrami Percent 7.8 % 04/13/2025 10:09 AM EST [facility] Eos Percent 3.7 % 04/13/2025 10:09 AM [facility] Baso Percent 0.7 % 04/13/2025 10:09 AM [facility] Neut # 6.3(H) 1.6 - 6.1 x10(3)/mc L 04/13/2025 10:09 AM [facility] Comment:Neutrophils equals s egs plus bands IMMGRAN# 0.2(H) 0.0 - 0.1 x10(3)/mc L 04/13/2025 10:09 AM [facility] Comment:Automated count of m etamyelocytes, myelocytes and promyelocytes. An absolute IG <0.1 is reported as 0.0. Lymph # 0.9(L) 1.2 - 3.9 x10(3)/mc L 04/13/2025 10:09 AM EST [facility] Bel[place]ami # 0.7 0.3 - 0.9 x10(3)/mc L 04/13/2025 10:09 AM [facility] Eos# 0.3 0.0 - 0.5 x10(3)/mc L 04/13/2025 10:09 AM [facility] Baso # 0.1 0.0 - 0.1 x10(3)/mc L 04/13/2025 10:09 AM [facility] Blood VENOUS BLOOD / Unknown Port / Unknown 04/13/2025 10:01 AM EST 04/13/2025 10:05 AM EST us Maxx Khan MD HEMATOLOGY ORDERABLES Final Re sult [facility] 1 [place], [place] [id number] * MAGNESIUM LEVEL (04/13/2025 10:01 AM EST) Only the most recent of3 resultswithin the time period is included. [facility] Magnesium 1.8 1.6 - 2.4 mg/dL 04/13/2025 10:31 AM EST [facility] Blood VENOUS BLOOD / Unknown Port / Unknown 04/13/2025 10:01 AM EST 04/13/2025 10:05 AM EST us Maxx Khan MD CHEMISTRY [place]AB[place] [address] * (ABNORMAL) COMPREHENSIVE METABOLIC PANEL (04/13/2025 10:01 AM EST) Only the most recent of6 resultswithin the time period is included. [facility] Sodium 143 136 - 145 mmol/L 04/13/2025 10:31 AM [facility] Potassium 3.6 3.5 - 5.0 mmol/L 04/13/2025 10:31 AM [facility] Chloride 109(H) 98 - 107 mmol/L 04/13/2025 10:31 AM [facility] Total CO2 23 22 - 29 mmol/L 04/13/2025 10:31 AM [facility] Anion Gap 11 7 - 16 mmol/L 04/13/2025 10:31 AM [facility] Calcium 8.9 8.8 - 10.4 mg/dL 04/13/2025 10:31 AM [facility] Glucose Lvl 132(H) 70 - 99 mg/dL 04/13/2025 10:31 AM EST [facility] BUN 11 8 - 23 mg/dL 04/13/2025 10:31 AM [facility] Creatinine 0.61 0.51 - 1.30 mg/dL 04/13/2025 10:31 AM [facility] Albumin 3.5 3.2 - 4.6 gm/dL 04/13/2025 10:31 AM EST [facility] Total Protein 6.2(L) 6.4 - 8.3 gm/dL 04/13/2025 10:31 AM EST [facility] Bili Total 0.3 0.2 - 1.3 mg/dL 04/13/2025 10:31 AM EST [facility] ALT 32 <=41 U/L 04/13/2025 10:31 AM EST [facility] AST 24 <=40 U/L 04/13/2025 10:31 AM EST [facility] Alk Phos 110 36 - 123 U/L 04/13/2025 10:31 AM EST [facility] eGFR (CKD-EPIcr 2020) 99 >=60 mL/min/1.7 3 m2 04/13/2025 10:31 AM EST [facility] Comment:Estimated GFR was ca lculated using the CKD-EPIcr (2020) equation refit without race. The equation is recommended by the [employer] Kid[employer] - [place] [employer] of Nephrology Task Force. Blood VENOUS BLOOD / Unknown Port / Unknown 04/13/2025 10:01 AM EST 04/13/2025 10:05 AM EST us Maxx Khan MD CHEMISTRY [place] [address] * RADIATION TREATMENT SUMMARY (03/20/2025 2:07 PM EST) Course ID C1 ARIA Course Start Date 02/25/2025 2:59:00 PM ARIA Primary Oncologist hBavesh Poole ARIA Session Number 5 ARIA Treatment Date_Time 03/20/2025 2:07:34 PM ARIA Treatment Elapsed Days 4 ARIA Fractions Treated 15 ARIA Reference Point ID Iso_pnt_L1- L3 ARIA Dosage Given to Date in Gy 20.89218688 ARIA Session Dosage Given in Gy 4.14543414 ARIA Reference Point ID Iso_pnt_RtF emur ARIA Dosage Given to Date in Gy 20.7474075 ARIA Session Dosage Given in Gy 4.00291705 ARIA Reference Point ID Iso_pnt_T5 ARIA Dosage Given to Date in Gy 20.1286512 ARIA Session Dosage Given in Gy 4.93633215 ARIA Reference Point ID Ref_pnt_L1- L3 ARIA [...] MD RADIATION ONCOLOGY ORDERABLES Fi nal Result [facility] [address] [facility] [place] [address] * RADIATION TREATMENT SUMMARY (03/19/2025 2:09 PM EST) Course ID C1 ARIA Course Start Date 02/25/2025 2:59:00 PM ARIA Primary Oncologist Bhavesh Poole ARIA Session Number 4 ARIA Treatment Date_Time 03/19/2025 2:09:12 PM ARIA Treatment Elapsed Days 3 ARIA Fractions Treated 12 ARIA Reference Point ID Iso_pnt_L1- L3 ARIA Dosage Given to Date in Gy 16.12118077 ARIA Session Dosage Given in Gy 4.04538307 ARIA Reference Point ID Iso_pnt_RtF emur ARIA Dosage Given to Date in Gy 16.72613210 ARIA Session Dosage Given in Gy 4.91774018 ARIA Reference Point ID Iso_pnt_T5 ARIA Dosage Given to Date in Gy 16.73920289 ARIA Session Dosage Given in Gy 4.34684117 ARIA Reference Point ID Ref_pnt_L1- L3 ARIA [...] us Bhavesh Poole MD RADIATION ONCOLOGY ORDERABLES nal Result Performing Organization Address City/State/[facility] Co de Phone Number [address] [place] [id number] * RADIATION TREATMENT SUMMARY (03/18/2025 2:07 PM EST) Course ID C1 ARIA Course Start Date 02/25/2025 2:59:00 PM CARINEA Primary Oncologist Bhavesh Poole Session Number 3 ARIA Treatment Date_Time 03/18/2025 2:07:39 PM ARIA Treatment Elapsed Days 2 ARIA Fractions Treated 9 ARIA Reference Point ID Iso_pnt_L1- L3 ARIA Dosage Given to Date in Gy 12.94565995 ARIA Session Dosage Given in Gy 4.02831452 ARIA Reference Point ID Iso_pnt_RtF emur ARIA Dosage Given to Date in Gy 12.43531646 ARIA Session Dosage Given in Gy 4.93165608 ARIA Reference Point ID Iso_pnt_T5 ARIA Dosage Given to Date in Gy 12.42790943 ARIA Session Dosage Given in Gy 4.60383016 ARIA Reference Point ID Ref_pnt_L1- L3 ARIA [...] MD RADIATION ONCOLOGY ORDERABLES Fi nal Result [facility] [address] [place] [address] * RADIATION TREATMENT SUMMARY (03/17/2025 12:31 PM EST) Course ID C1 ARIA Course Start Date 02/25/2025 2:59:00 PM ARIA Primary Oncologist Bhavesh Poole Session Number 2 ARIA Treatment Date_Time 03/17/2025 12:31:51 PM ARIA Treatment Elapsed Days 1 ARIA Fractions Treated 6 ARIA Reference Point ID Iso_pnt_L1- L3 ARIA Dosage Given to Date in Gy 8.91473907 ARIA Session Dosage Given in Gy 4.02050842 ARIA Reference Point ID Iso_pnt_RtF emur ARIA Dosage Given to Date in Gy 8.68540607 ARIA Session Dosage Given in Gy 4.15072835 ARIA Reference Point ID Iso_pnt_T5 ARIA Dosage Given to Date in Gy 8.56056198 ARIA Session Dosage Given in Gy 4.96861881 ARIA Reference Point ID Ref_pnt_L1- L3 ARIA [...] MD RADIATION ONCOLOGY ORDERABLES Fi nal Result [facility] [address] [place] [address] * (ABNORMAL) URINALYSIS REFLEX (03/16/2025 12:27 PM [...] EST 03/16/2025 12:37 PM EST Esperanza Monsalve APRN URINE ORDERABLES Final Result [facility] 1 [facility] , [place] [address] * (ABNORMAL) URINE CULTURE (NO STAIN) (03/16/2025 12:27 PM EST) Culture Positive Growth(A) 03/18/2025 10:20 AM EST [facility] Culture >100,000 CFU/mL Escherichia coli SUSCEPTIBI LITY RESULT 03/18/2025 10:20 AM EST [facility] Urine STRUCTURE [...] xazole SUSCEPTIBILITY RESULT <=0.5/9.5 ug/mL: Susceptible Esperanza Bello YADAV MICROBIOLOGY - GENERAL ORDERAB LES Final Result [facility] [employer], [address] , [facility] [place] [address] * RADIATION TREATMENT SUMMARY (03/16/2025 12:01 PM EST) Course ID C1 ARIA Course Start Date 02/25/2025 2:59:00 PM ARIA Primary Oncologist Bhavesh Poole Session Number 1 ARIA Treatment Date_Time 03/16/2025 12:01:52 PM ARIA Treatment Elapsed Days 0 ARIA Fractions Treated 3 ARIA Reference Point ID Iso_pnt_L1- L3 ARIA Dosage Given to Date in Gy 4.11416744 ARIA Session Dosage Given in Gy 4.72415103 ARIA Reference Point ID Iso_pnt_RtF emur ARIA Dosage Given to Date in Gy 4.69611049 ARIA Session Dosage Given in Gy 4.20338641 ARIA Reference Point ID Iso_pnt_T5 ARIA Dosage Given to Date in Gy 4.22232486 ARIA Session Dosage Given in Gy 4.49740177 ARIA Reference Point ID Ref_pnt_L1- L3 ARIA [...] ORDERABLES Fi nal Result Performing Organization Address City/State/[facility] Co de Phone Number [address] [place] [address] * IR PORT PLACEMENT EQUAL OR > [...] port insertion. Port ready for immediate use. Maxx Khan MD IMG IR ORDERABLES Final Result * PT / INR (02/27/2025 9:28 AM EDT) PT 11.9 10.5 - 13.6 second(s) 02/27/2025 10:33 AM EDT [facility] INR 1.03 0.91 - 1.18 (ratio) 02/27/2025 10:33 AM EDT [facility] Comment: Level of Therapy Indications Target INR Range Standard Dose Treatment and prophylaxis of venous 2.0 - 3.0 thrombosis, pulmonary embolism High Dose High risk patients with mechanical 2.5 - 3.5 heart valves Blood VENOUS BLOOD / Unknown Venipuncture / Unknown 02/27/2025 9:28 AM EDT 02/27/2025 10:23 AM EDT Jeannine Hoyos MD HEMATOLOGY ORDERABLES Final R esult Performing Organization Address City/State/[facility] Co de Phone Number [facility] [address] [place] [address] * CT CHEST RADIATION THERAPY PLANNING WO [...] contactthe office of the ordering clinician. us Bhavesh Poole MD IM CT ORDERABLES Final Result * EC ECHOCARDIOGRAM COMPLETE W DOPPLER AND [...] MD IMG ECHO ORDERABLES Final Resu lt * MRI COMPLETE SPINAL SCREENING W WO [...] leftT4-T5 and T5-T6. us Maxx Khan MD IMKsenia MRI ORDERABLES Final Resul t * MRI BRAIN W WO CONTRAST (02/23/2025 [...] please contactthe office of the ordering clinician. Maxx Khan MD IMG MRI ORDERABLES Final Resul t * GENETIC SCANNING (02/16/2025 9:21 AM EDT) Blood Historical Provider HEMATOLOGY ORDERABLES Final Result [facility] [address] [facility] [address] [place] [address], [facility] [phone] * PET CT SKULL BASE TO MID THIGH (02/11/2025 4:24 PM EDT) Anatomical Region Laterality Modality Positron Emissio n Tomography (PET) 02/11/2025 4:24 PM EDT Impressions 02/12/2025 8:35 AM EDT Extensive multifocal metastatic disease involving the right breast, right axilla, right subpectoral region, right supraclavicular region, right paratracheal region, left supraclavicular region, right hilum, and mediastinum. Extensive bone metastases. Scattered lung metastases. - Note: Radiology results need to be interpreted within a comprehensive clinical context. If you have questions about the radiology report, please contact the office of the ordering clinician. Narrative 02/12/2025 8:[address] SKULL BASE TO MID THIGH, 02/11/2025 4:24 PM CLINICAL HISTORY: C50.911-Malignant neoplasm of unspecified site of right female breast (HCC)-ICD-10-CM C50.912-Malignant neoplasm of unspecified site of left female breast (HCC)-ICD-10-CM. COMPARISON: None. PROCEDURE COMMENTS: 11.3 mCi 18F-fluorodeoxyglucose (FDG) was administered I.V. Serum blood glucose [...] Normal distribution of physiologic background activity was present including gastrointestinal, genitourinary, cardiovascular, neurologic systems. Index activity [...] anterior retroareolar SUV 14.7. 2. Extensive right subpectoral and right high and low axillary adenopathy. [...] SUV 21.7. Multifocal other areas of vertebral involvement not measured. Extensive multifocal pelvic uptake. Left sacrum SUV 16.5. Left iliac crest SUV 15.2. Right femoral neck extensive uptake SUV 21.2. Left proximal femur SUV 16. Large areas of uptake in the distal femoral shafts bilaterally. Notable CT findings: Breast masses and right axillary adenopathy noted. Lung nodules are relatively faint. Bone metastasis is a very subtle on the CT portion study. Procedure Note Josué Cody III, MD - 02/12/[address] SKULL BASE TO MID THIGH, 02/11/2025 4:24 PM CLINICAL HISTORY: C50.911-Malignant neoplasm of unspecified site ofright female breast (HCC)-ICD-10-CM C50.912-Malignant neoplasm of unspecified site of left female breast (HCC)-ICD-10-CM. COMPARISON: None. PROCEDURE COMMENTS: 11.3 mCi 18F-fluorodeoxyglucose (FDG) was administeredI.V. Serum blood glucose at the time of the injection was 107 mg/dL. Uptaketime was approximately 60 minutes. Scanning performed from the skull vertex to themid thigh. As an integrated part of the study, noncontrast CT scanningperformed for attenuation correction and localization purposes. Dose 1 : CT DLP Total : 725.97 mGycm DLP Spiral Max : 717.58 mGycm Maximum CTDI Vol : 6.75 mGy FINDINGS: Normal distribution of physiologic background activity waspresent including gastrointestinal, genitourinary, cardiovascular, neurologicsystems. Index activity in the right lobe of the liver was 3.2 SUV max. There are too numerous to count multifocal metastatic lesions whichprimarily involvement bone and lymph nodes. Several but not all of these will be referenced for follow-up post therapy: 1. 2 separate large foci of the right breast. There is a more posteriormass SUV 13.7. There is a smaller mass more anterior retroareolar SUV 14.7. 2. Extensive right subpectoral and right high and low axillary adenopathy.Right subpectoral node 15 SUV. Largest more inferior right axillary lymph nodesSUV 21. Extensive right axillary adenopathy. 3. Other adenopathy also identified. Multiple right supraclavicular lymphnodes, right paratracheal lymph node SUV 18. Left supraclavicular lymph node SUV9. Right hilar adenopathy SUV 5.9 right paraesophageal lymph node SUV 13.8 scattered lung metastases SUV 5.9 4. Extensive bone metastases. Some of these will be measured forfollow-up purposes. Scattered uptake throughout multiple cervical and thoracic aswell as lumbar vertebral bodies. Right skull base metastases also noted. Left C1 metastatic lesion SUV 9. Extensive uptake in the central leftward [id number] body SUV 10.6. Extensive uptake in the T8 vertebral body SUV 17.7extensive uptake L1 vertebral body SUV 21.7. Multifocal other areas of vertebral involvement not measured. Extensive multifocal pelvic uptake. Left sacrumSUV 16.5. Left iliac crest SUV 15.2. Right femoral neck extensive uptake SUV21.2. Left proximal femur SUV 16. Large areas of uptake in the distal femoralshafts bilaterally. Notable CT findings: Breast masses and right axillary adenopathy noted.Lung nodules are relatively faint. Bone metastasis is a very subtle on the CTportion study. IMPRESSION: Extensive multifocal metastatic disease involving the right breast,right axilla, right subpectoral region, right supraclavicular region, right paratracheal region, left supraclavicular region, right hilum, andmediastinum. Extensive bone metastases. Scattered lung metastases. - Note: Radiology results need to be interpreted within a comprehensiveclinical context. If you have questions about the radiology report, please contactthe office of the ordering clinician. us Tresa Jacinto DO IMG PET ORDERABLES Final Res ult * (ABNORMAL) GLUCOSE METER POC (02/11/2025 2:40 PM EDT) Glucose Meter POC 107(H) 70 - 100 mg/dL 02/11/2025 2:41 PM EDT [facility] Sample Type Capillary 02/11/2025 2:41 PM EDT [facility] Patient Status Non-Critical Patient 02/11/2025 2:41 PM EDT [facility] Blood BLOOD SPECIMEN / Unknown 02/11/2025 2:40 PM EDT 02/11/2025 2:41 PM EDT us Tresa Jacinto DO POINT OF CARE TEST ORDERABLE S Final Result [facility] [address] [place] [address] * PATHOLOGY TISSUE REQUEST (02/06/2025 3:52 PM EDT) CASE REPORT Surgical Pathology Case: [id number] Authorizing Provider: Tresa Jacinto DO Collected: 02/06/2025 1552 Ordering Location: [facility] Received: 02/06/[address] [place] [address] Pathologist: Deb Cho MD Specimen: Breast, Right 02/09/2025 1:54 PM EDT [facility] FINAL DIAGNOSIS Skin, right breast, punch biopsy: - Benign skin fragment with mild dermal perivascular chronic inflammation. - Negative for cytologic atypia or malignancy. 02/09/2025 1:54 PM EDT [facility] at 1354 EDT GROSS DESCRIPTION A. Received in formalin, in a container labeled with the patient's name, hospital number, and Breast, Right , is a 0.5 cm in length x 0.5 cm in diameter kingston, kingston-white and wrinkled skin punch biopsy. The specimen is inked green and submitted entirely in A1. Cold ischemia time: Less than 1 minute (time removed from patient: 1552; time placed in formalin: 1552 on 02/06/2025) Formalin fixation time: About 35 hours (time removed from formalin: 0300 on 02/08/2025) DARLENE Townsend, SHAYLEE (ASCP) 02/06/2025 02/09/2025 1:54 PM EDT [facility] MICROSCOPIC DESCRIPTION The microscopic examination may have been rendered in whole, or in part, by analyzing high-resolution digital images (whole slide images) on the [employer] Digital Pathology platform validated at [facility]. 02/09/2025 1:54 PM EDT [facility] EMBEDDED IMAGES 02/09/2025 1:54 PM EDT [facility] Tissue RIGHT BREAST STRUCTURE / Unknown 02/06/2025 3:52 PM EDT 02/06/2025 3:59 PM EDT us Tresa Jacinto DO PATHOLOGY ORDERABLES Final R esult [facility] [address] [place] [address] * (ABNORMAL) MM MAMMO DIGITAL LASHAUN DIAGN BILAT (01/02/2025 2:24 PM EDT) Anatomical Region Laterality Modality Breast Bilateral Mammography 01/02/2025 2:24 PM EDT Addenda Addendum by Ryanne Polk MD on 01/05/2025 9:14 AM EDT EXAM: MM MAMMO DIGITAL LASHAUN DIAGN BILAT, MM US BREAST LIMITED BILATERAL EXAM DATE: 01/02/2025 2:24 PM [id number] ADDENDUM: Patient's outside films from [facility] in [place], [place] dated 02/11/2015, 07/29/2012, 05/01/2012, and 02/22/2012 for comparative purposes. RIGHT: With outside films, no change in the FINDINGS, IMPRESSION, and RECOMMENDATION. LEFT FINDINGS changes: With outside films, the faint calcifications noted anterior to the 2013 biopsy clip have slightly increased in the 12 year interval. These calcifications are near the posterior LEFT 5:00 6 mm irregular mass which will be biopsied. Furthermore, the 12 mm cluster of heterogeneous calcifications in the mid 7:00 LEFT breast are not significantly changed since 2014. Given the patient's current desired surgical plan (bilateral mastectomy), no additional LEFT breast biopsies necessary. Specifically, no LEFT stereotactic guided biopsy needed at this time. No change in regards to the IMPRESSION. RECOMMENDATION change: As noted above, LEFT stereotactic core biopsy no longer necessary. IMPRESSION: Highly Suggestive of Malignancy ([id number]-4) RECOMMENDATION: Ultrasound Guided Breast Biopsy Bilateral COMMENTS: Patient was seen in Breast Clinic following her diagnostic mammogram and ultrasound. Please refer to Tresa Santiago APRN, new patient consult progress note dated 01/02/2025 for additional details. Three ultrasound-guided biopsies recommended: RIGHT 12:30 mass, RIGHT axillary lymphadenopathy, and LEFT 5:00 mass. DISCLAIMER *The patient was notified by MyChart or mail of the results for this examination. *The patient's information was entered into a reminder system with a target due date for the next breast imaging, in accordance with the [employer] and the Society of Breast Imaging recommendations. *Breast Imaging has a false negative rate of 15%. *Any patient with a palpable abnormality, unexplained by breast imaging, should be managed on a clinical basis by the attending physician. Impressions 01/02/2025 4:17 PM EDT Highly Suggestive of Malignancy ([id number]-2) ASSESSMENT TEXT: . RECOMMENDATION: Ultrasound Guided Breast Biopsy Bilateral Stereotactic Core Biopsy Left COMMENTS: Patient was seen in Breast Clinic following today's diagnostic mammogram and ultrasound. Images were sent with Tresa Santiago APRN. The findings and recommendations were discussed with the patient during her breast clinic appointment. At a minimum, the 12:30 RIGHT 2.4 cm mass and the 5:00 LEFT 0.6 cm mass need ultrasound-guided biopsies. Given the extent of involvement of the RIGHT breast, RIGHT axillary ultrasound-guided biopsy can also be performed. If the patient desires a LEFT lumpectomy, stereotactic guided biopsy of the LEFT 7:00 calcifications is also necessary. Furthermore, Breast MRI is warranted. DISCLAIMER *The patient was notified by [facility] or mail of the results for this examination. *The patient's information was entered into a reminder system with a target due date for the next breast imaging, in accordance with the [employer] and the Society of Breast Imaging recommendations. *Breast Imaging has a false negative rate of 15%. *Any patient with a palpable abnormality, unexplained by breast imaging, should be managed on a clinical basis by the attending physician. Narrative 01/02/2025 4:17 PM EDT EXAM: MM MAMMO DIGITAL LASHAUN DIAGN BILAT, MM US BREAST LIMITED BILATERAL EXAM DATE: 01/02/2025 2:24 PM [id number] INDICATION: N63.10-Unspecified lump in the right breast, unspecified [id number] 64-year-old presents with a palpable RIGHT breast lump that she has noticed for 3 months. Patient reports history of prior LEFT biopsy. Evaluate. COMPARISON STUDIES: Baseline mammogram at this institution. Patient has prior outside mammograms from [facility] from 02/11/2015 and dating back to 02/22/2012. At the time of dictation on 01/02/2025, outside films are not available. Outside films will be requested and if they arrive, an addendum can be dictated. TISSUE DENSITY: There are scattered areas of fibroglandular density. FINDINGS: MAMMOGRAM: RIGHT: Approximately 3 cm spiculated mass with associated suspicious heterogeneous microcalcifications in the posterior 1:00 RIGHT breast. Additionally, there appears to be at least two satellite lesions in the 12:00 position, one measuring approximately 2 cm and on the other measuring less than 1 cm. Furthermore, diffuse increased RIGHT breast trabeculae and RIGHT breast skin thickening. These findings are worrisome for lymphatic involvement. LEFT: Biopsy clip noted in the mid to posterior retroareolar 5:00 LEFT breast. Some faint calcifications project anterior to the biopsy clip possibly corresponding to be reported history of calcifications being biopsied in 2012. Posterior to the biopsy clip in the 4:00 to 5:00 position of the LEFT breast is an approximately 1 cm spiculated mass with associated architectural distortion. Additionally, 15 mm circumscribed lobulated mass in the mid to posterior 2:00 LEFT breast. Furthermore, 12 mm cluster of heterogeneous calcifications in the mid 7:00 LEFT breast. ULTRASOUND: Targeted ultrasound evaluation of the RIGHT 12:00, RIGHT 1:00, LEFT 2:00, LEFT 4:00 to 5:00, and the LEFT 7:00 breast was performed corresponding to the region of the mammographic findings. Additionally, ultrasound evaluation of both axilla was performed. Note: Technologist reported that the patient has vertigo and has limited ability to properly position for the examination. Thus the ultrasound is also somewhat limited. RIGHT: Corresponding to the primary palpable spiculated mass in the 12:30 position of the RIGHT breast 4 cm from the nipple is a 1.9 x 2.0 x 2.4 cm irregular hypoechoic mass with posterior shadowing. In the 12:00 position of the RIGHT breast 5 cm from the nipple, note is made of an irregular 0.8 x 0.4 x 0.9 cm oval hypoechoic mass with some posterior shadowing most consistent with a small satellite lesion. Additionally, in the 1:00 position of the retroareolar RIGHT breast, another irregular hypoechoic mass with posterior shadowing is noted measuring 1.0 x 1.1 x 1.9 cm. This is most consistent with a second satellite lesion. Ultrasound evaluation of the RIGHT axilla reveals at least 5 markedly enlarged axillary lymph nodes largest measuring 2.0 x 1.6 cm. LEFT: Corresponding to the mammographic finding in this region, note is made of a 0.9 x 0.4 x 0.4 cm cyst in the 2:00 LEFT breast 4 cm from the nipple. Additionally, incidentally noted is a small 0.9 x 0.4 x 0.6 cm cyst in the 4:00 LEFT breast 4 cm from the nipple. Corresponding to the spiculated mass in the 5:00 position of the LEFT breast 7 cm from the nipple is an irregular hypoechoic taller than wide mass with posterior shadowing measuring 0.6 x 0.4 x 0.6 cm. No sonographic abnormality identified in the 7:00 position of the LEFT breast corresponding to the region of the calcifications seen on mammography. Ultrasound evaluation of the LEFT axilla is unremarkable. Procedure Note Ryanne Polk MD - 01/02/2025 EXAM: MM MAMMO DIGITAL LASHAUN DIAGN BILAT, MM US BREAST LIMITED BILATERAL EXAM DATE: 01/02/2025 2:24 PM [id number] INDICATION: N63.10-Unspecified lump in the right breast, unspecified [id number] 64-year-old presents with a palpable RIGHT breast lumpthat she has noticed for 3 months. Patient reports history of prior LEFTbiopsy. Evaluate. COMPARISON STUDIES: Baseline mammogram at this institution. Patient hasprior outside mammograms from [facility] from 02/11/2015nd dating back to 02/22/2012. At the time of dictation on 01/02/2025, outsidefilms are not available. Outside films will be requested and if they arrive,an addendum can be dictated. TISSUE DENSITY: There are scattered areas of fibroglandular density. FINDINGS: MAMMOGRAM: RIGHT: Approximately 3 cm spiculated mass with associated suspicious heterogeneous microcalcifications in the posterior 1:00 RIGHT breast. Additionally, there appears to be at least two satellite lesions in the12:00 position, one measuring approximately 2 cm and on the other measuring lessthan 1 cm. Furthermore, diffuse increased RIGHT breast trabeculae and RIGHTbreast skin thickening. These findings are worrisome for lymphatic involvement. LEFT: Biopsy clip noted in the mid to posterior retroareolar 5:00 LEFTbreast. Some faint calcifications project anterior to the biopsy clip possibly corresponding to be reported history of calcifications being biopsied [id number]. Posterior to the biopsy clip in the 4:00 to 5:00 position of the LEFTbreast is an approximately 1 cm spiculated mass with associated architecturaldistortion. Additionally, 15 mm circumscribed lobulated mass in the mid to posterior2:00 LEFT breast. Furthermore, 12 mm cluster of heterogeneous calcifications inthe mid 7:00 LEFT breast. ULTRASOUND: Targeted ultrasound evaluation of the RIGHT 12:00, RIGHT 1:00,LEFT 2:00, LEFT 4:00 to 5:00, and the LEFT 7:00 breast was performedcorresponding to the region of the mammographic findings. Additionally, ultrasoundevaluation of both axilla was performed. Note: Technologist reported that the patient has vertigo and has limitedability to properly position for the examination. Thus the ultrasound is alsosomewhat limited. RIGHT: Corresponding to the primary palpable spiculated mass in the12:30 position of the RIGHT breast 4 cm from the nipple is a 1.9 x 2.0 x 2.4cm irregular hypoechoic mass with posterior shadowing. In the 12:00 positionof the RIGHT breast 5 cm from the nipple, note is made of an irregular 0.8 x 0.4x 0.9 cm oval hypoechoic mass with some posterior shadowing most consistent witha small satellite lesion. Additionally, in the 1:00 position of theretroareolar RIGHT breast, another irregular hypoechoic mass with posterior shadowingis noted measuring 1.0 x 1.1 x 1.9 cm. This is most consistent with asecond satellite lesion. Ultrasound evaluation of the RIGHT axilla reveals at least 5 markedlyenlarged axillary lymph nodes largest measuring 2.0 x 1.6 cm. LEFT: Corresponding to the mammographic finding in this region, note ismade of a 0.9 x 0.4 x 0.4 cm cyst in the 2:00 LEFT breast 4 cm from the nipple. Additionally, incidentally noted is a small 0.9 x 0.4 x 0.6 cm cyst in the4:00 LEFT breast 4 cm from the nipple. Corresponding to the spiculated mass inthe 5:00 position of the LEFT breast 7 cm from the nipple is an irregularhypoechoic taller than wide mass with posterior shadowing measuring 0.6 x 0.4 x 0.6cm. No sonographic abnormality identified in the 7:00 position of the LEFTbreast corresponding to the region of the calcifications seen on mammography. Ultrasound evaluation of the LEFT axilla is unremarkable. IMPRESSION: Highly Suggestive of Malignancy ([id number]-[id number]-6) ASSESSMENT TEXT: . RECOMMENDATION: Ultrasound Guided Breast Biopsy Bilateral Stereotactic Core Biopsy Left COMMENTS: Patient was seen in Breast Clinic following today's diagnostic mammogram and ultrasound. Images were sent with Tresa Santiago APRN. Thefindings and recommendations were discussed with the patient during her breastclinic appointment. At a minimum, the 12:30 RIGHT 2.4 cm mass and the 5:00 LEFT0.6 cm mass need ultrasound-guided biopsies. Given the extent of involvement ofthe RIGHT breast, RIGHT axillary ultrasound-guided biopsy can also beperformed. If the patient desires a LEFT lumpectomy, stereotactic guided biopsy of theLEFT 7:00 calcifications is also necessary. Furthermore, Breast MRI iswarranted. DISCLAIMER *The patient was notified by MyChart or mail of the results for this examination. *The patient's information was entered into a reminder system with atarget due date for the next breast imaging, in accordance with the [employer] and the Society of Breast Imaging recommendations. *Breast Imaging has a false negative rate of 15%. *Any patient with a palpable abnormality, unexplained by breast imaging,should be managed on a clinical basis by the attending physician. Rocio Esquivel NP IMG MAMMOGRAPHY ORDERABLES Edit ed Result - Final from Last 3 Months or Most Recently Relevant to Health Maintenance Care Teams Curator Of Photography And Prints Relationship Specialty Start Date End Date Idania Cobb, RN Oncology Nurse Navigator 01/22/25 Maxx Khan MD [address] [place] [address] Medical Oncologist Internal Medicine-Medical Oncology 02/18/25 Obdulia Mazariegos, ANTHONY Registered Nurse 02/18/25 Bhavesh Poole MD [address] [place] [address] Radiation Oncologist Radiology-Radiation Oncology 02/24/25 Elena Buck, Clerical Staff Financial Counselor 02/27/25
--- OUTSIDE RECORDS SUMMARY | 2025-04-22 04:57 | XMS_ITS | Encounter Summary ---
Author Organization [place] [address] Care Team Providers Care Lime Slaker Name Role Phone Idania Cobb RN Unavailable Maxx Khan MD Unavailable [phone] Obdulia Mazariegos RN Unavailable Unavailable Bhavesh Poole MD Unavailable Elena Buck Clerical Staff Unavailable Reason for Visit * Reason Onset Date Comments Other 04/20/2025 Requesting to sp eak to RN Encounter Details Date Type Department Care Team (Late st Contact Info) Description 04/20/2025 Telephone [facility] [place] [address] Maxx Khan MD [address] [place] [address] Other (Requesting to speak to RN ) Social History Tobacco Use Types Packs/Day [...] Refills Last Filled Start Date End Date diphenhydrAMINE (BENYLIN) 12.5 mg/5 mL Oral LiquidIndications: Mucositis due to chemotherapy Mix with Lidocaine and Nystatin. Swish and swallow 10-20 ml of final mixture by mouth every 3-4 hours as needed. 472 mL 04/20/2025 nystatin (MYCOSTATIN) 100,000 unit/mL Oral SuspensionIndicati ons:Mucositis due to chemotherapy Mix with Benadryl and Lidocaine. Swish and swallow 10-20 ml of final mixture by mouth every 3-4 hours as needed. 473 mL 04/20/2025 lidocaine 2 % MM SolutionIndication s:Mucositis due to chemotherapy Mix with Benadryl and Nystatin. Swish and swallow 10-20 ml of final mixture by mouth every 3-4 hours as needed. 100 mL 04/20/2025 documented in this encounter Miscellaneous Notes * Telephone Encounter - Zulma Hoskins NA - 04/20/2025 4:45 PM EST Call from [facility] with questions about prescription. Transferred to RN with permission. * Telephone Encounter - Obdulia Mazariegos RN - 04/20/2025 3:21 PM EST Called and LVM for patient. Called spouse's phone and she was there with him. She states that she'sgot a rash under her stomach that is bright red. She isn't sure if it is from radiation or treatment. She states that if she rubs it it bleeds. They have some butt paste that you'd use for babies andvaseline that they are going to try. She also keeps a towel in the area to help with moisture. She is also going to take a picture via [employer]. She also states that she has little blisters on her tongue that make it difficult to talk. Will call in miles mixture ingredients separately to her pharmacy. * Telephone Encounter - Izabela Baires, Clerical Staff - 04/20/2025 1:19 PM EST Reason for call: Patient called requesting to speak to RN. No further information provided. Preferred call back number:[phone] documented in this encounter Plan of Treatment Upcoming Encounters Date Type Department Care Team (Late st Contact Info) Description 05/01/2025 12:30 PM EST Appointment [facility] [place] [address] Maxx Khan MD [address] [facility] [place] [address] 05/04/2025 8:15 AM EST Appointment [facility] [place] [address] 05/04/2025 8:45 AM EST [facility]ment [facility] [place] [address] Maxx Khan MD [address] [facility] [place] [address] 05/04/2025 9:00 AM EST Appointment [facility] [place], [place] [id number] 05/28/2025 10:30 AM EST Appointment [facility] [place] [address] Maxx Khan MD [address] [place] [address] [place] [address] 06/26/2025 10:15 AM EST Appointment [facility] [place] [place] [address] Consuelo Ugarte APRN [address] [place] [address] [place] [address] documented as of this encounter Goals Goal Patient Goal Type Associated Problems Recent Progress Patient-Stated? Author Breast Health Breast Health Yenni Funk, RN Note: Patient acknowledges understanding of new diagnosis, plan of care, available resources and how to contact Nurse Navigator with any future questions or concerns. 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
--- OUTSIDE RECORDS SUMMARY | 2025-04-22 04:57 | XMS_ITS | Encounter Summary ---
Author Organization [employer] [place] [address] Care Team Providers Care [employer] Manager Name Role Phone Idania Cobb RN Unavailable Maxx Khan MD Unavailable [phone] Obdulia Mazariegos RN Unavailable Unavailable Bhavesh Poole MD Unavailable Elena Buck Clerical Staff Unavailable Reason for Visit * Reason Onset Date Comments Medication Management 03/24/2025 oxymetazol ine 0.025 % Nasl [place], Non-Aerosol Encounter Details Date Type Department Care Team (Late st Contact Info) Description 03/24/2025 Telephone [facility] Care Medical Oncology [place] [id number] Maxx Khan MD [address] [place], [place] [id number] Medication Management (oxymetazoline 0.025 % Nasl [place], Non-Aerosol) Social History Tobacco Use Types Packs/Day Years [...] Refills Last Filled Start Date End Date oxymetazoline 0.025 % Nasl [place], Non-AerosolIndicati ons:Nosebleed 1 [place] by Nasal route 2 times daily as needed. 30 mL 03/24/2025 04/13/2025 documented in this encounter Miscellaneous Notes * Telephone Encounter - Obdulia Mazariegos RN - 03/24/2025 1:56 PM EST Script called in again. Notified patient via MyChart. * Telephone Encounter - Sabrina Kramer, Clerical Staff - 03/24/2025 1:38 PM EST Reason for call: Rosario is calling regarding the prescription for oxmetazoline nasal spray. Per thepharmacy, the order was not received for this prescription. oxymetazoline 0.025 % Nasl [place], Non-Aerosol 30 mL ML 03/23/2025 -- Sig - Route: 1 [place] by Nasal route 2 times daily as needed. - Nasal Class: Phone In Preferred call back number:[phone] documented in this encounter Plan of Treatment Upcoming Encounters Date Type Department Care Team (Late st Contact Info) Description 05/01/2025 12:30 PM EST Appointment [facility] [place] [address] Maxx Khan MD [address] [place] [address] [place] [address] 05/04/2025 8:15 AM EST Appointment [facility] [place] [address] 05/04/2025 8:45 AM EST Appointment [facility] [place], [place] [id number] Maxx Khan MD [address] [place] [address] [place] [address] 05/04/2025 9:00 AM EST Appointment [facility] [place], [place] [id number] 05/28/2025 10:30 AM EST Appointment [facility] [place] [id number] Maxx Khan MD [address] [facility] [address] [place] [id number] 06/26/2025 10:15 AM EST Appointment [facility] [place] [place] [address] Consuelo Ugarte APRN [address] [facility] [address] [place] [id number] documented as of this encounter Goals Goal Patient Goal Type Associated Problems Recent Progress Patient-Stated? Author Breast Health Breast Health Yenni Funk, RN Note: Patient acknowledges understanding of new diagnosis, plan of care, available resources and how to contact Nurse Navigator with any future questions or concerns. documented as of this encounter Visit Diagnoses Diagnosis Nosebleed Epistaxis documented in this encounter Discontinued Medications Medication Sig Discontinue Reason Start Date End Da te oxymetazoline 0.025 % Nasl [place], Non-AerosolIndications:No sebleed 1 [place] by Nasal route 2 times daily as needed. Reorder 03/23/2025 03/24/2025 documented as of this encounter Care Teams [employer] Manager Relationship Specialty Start Date End Date Idania Cobb RN Oncology Nurse Navigator 01/22/25 Maxx Khan MD [address] [facility] [place] [id number] Medical Oncologist Internal Medicine-Medical Oncology 02/18/25 Obdulia Mazariegos, RN Registered Nurse 02/18/25 Bhavesh Poole MD [address] [place] [address] Radiation Oncologist Radiology-Radiation Oncology 02/24/25 Elena Buck, Clerical Staff Financial Counselor 02/27/25 documented as of this encounter
--- OUTSIDE RECORDS SUMMARY | 2025-04-22 04:57 | XMS_ITS | Encounter Summary ---
Author Organization [place] [address] Care Team Providers Care Rug Layer Name Role Phone Idania Cobb RN Unavailable Maxx Khan MD Unavailable [phone] Obdulia Mazariegos RN Unavailable Unavailable Bhavesh Poole MD Unavailable Reason for Visit * Reason Onset Date Comments Medication Management 02/25/2025 emla cream Encounter Details Date Type Department Care Team (Late st Contact Info) Description 02/25/2025 Telephone [facility] [place], [place] [id number] Maxx Khan MD [address] [place], [place] [id number] Medication Management (emla cream ) Social History Tobacco Use Types Packs/Day [...] Refills Last Filled Start Date End Date lidocaine-prilocai ne (EMLA) Top CreamIndications:I nvasive ductal carcinoma of right breast, stage 4 (HCC) Apply topically as needed for Pain. Apply one nickel sized glob over port approx 1 hour before appt. DO NOT RUB IN. Cover with plastic wrap 30 g 02/25/2025 documented in this encounter Miscellaneous Notes * Telephone Encounter - Obdulia Mazariegos RN - 02/25/2025 2:56 PM EDT Script for emla cream called in to patient's pharmacy. With goodrx discount, script is $12.28 at [facility]. Notified patient via [employer]. documented in this encounter Plan of Treatment Upcoming Encounters Date Type Department Care Team (Late st Contact Info) Description 05/01/2025 12:30 PM EST Appointment [facility] [address] [place], [place] [id number] Maxx Khan MD [address] [place] [address] [place] [address] 05/04/2025 8:15 AM EST Appointment [facility] [place], [place] [id number] 05/04/2025 8:45 AM EST [facility]ment [facility] [place] [address] Maxx Khan MD [address] [place] [address] [place] [address] 05/04/2025 9:00 AM EST Appointment [facility] [place], [place] [id number] 05/28/2025 10:30 AM EST Appointment [facility] [place] [address] Maxx Khan MD [address] [place] [address] [place] [address] 06/26/2025 10:15 AM EST Appointment [facility] [place] [address] Consuelo Ugarte APRN [address] [place] [address] documented as of this encounter Goals Goal [...] of right breast, stage 4 (HCC)- Primary documented in this encounter Care Teams Rug Layer Relationship Specialty Start Date End Date Idania Cobb RN Oncology Nurse Navigator 01/22/25 Maxx Khan MD 1 [place], [place] [phone] Medical Oncologist Internal Medicine-Medical Oncology 02/18/25 Obdulia Mazariegos RN Registered Nurse 02/18/25 Bhavesh Poole MD 1 [place] [address] Radiation Oncologist Radiology-Radiation Oncology 02/24/25 documented as of this encounter
--- OUTSIDE RECORDS SUMMARY | 2025-04-22 04:57 | XMS_ITS | Encounter Summary ---
Author Organization [place] [address] Care Team Providers Care Stencil Machine Operator Name Role Phone Idania Cobb RN Unavailable Maxx Khan MD Unavailable [phone] Obdulia Mazariegos RN Unavailable Unavailable Bhavesh Poole MD Unavailable Elena Buck Clerical Staff Unavailable Francisca Oconnor RN Unavailable Unava ilable Ankush Jean RN Unavailable Unavailable Encounter Details Date Type Department Care Team (Latest Contact Info) Description 02/25/2025 Results Follow-Up [facility] [place] [address] Maxx Khan MD [address] [place] [address] [id number] EC ECHOCARDIOGRAM COMPLETE W DOPPLER AND COLOR FLOW MAPPING Social History Tobacco Use Types Packs/Day Years [...] PM EST Appointment [facility] [place], [place] [id number] Maxx Khan MD 1 [facility] [place] [address] 05/04/2025 8:15 AM EST Appointment [place] [address] 05/04/2025 8:45 AM EST [facility]ointment [facility] [place] [address] Maxx Khan MD [address] [place] [address] [place] [address] 05/04/2025 9:00 AM EST Appointment [facility] [place] [place] [address] 05/28/2025 10:30 AM EST Appointment [facility] [place] [address] Maxx Khan MD [address] [place] [address] [place] [address] 06/26/2025 10:15 AM EST Appointment [facility] [place] [address] Consuelo Ugarte APRN [address] [place] [address] [place] [address] documented as of this encounter Goals Goal Patient Goal Type Associated Problems Recent Progress Patient-Stated? Author Breast [facility] Breast Health Yenni Fnuk RN Note: Patient acknowledges understanding of new diagnosis, plan of care, available resources and how to contact Nurse Navigator with any future questions or concerns. documented as of this encounter Visit Diagnoses Not on filedocumented in this encounter Care Teams Stencil Machine Operator Relationship Specialty Start Date End Date Idania Cobb, ANTHONY Oncology Nurse Navigator 01/22/25 Maxx Khan MD 1 [facility] [place] [address] Medical Oncologist Internal Medicine-Medical Oncology 02/18/25 Obdulia Mazariegos, RN Registered Nurse 02/18/25 Bhavesh Poole MD 1 [place] [address] Radiation Oncologist Radiology-Radiation Oncology 02/24/25 Elena Buck, Clerical Staff Financial Counselor 02/27/25 Francisca Oconnor, RN Registered Nurse Infusion Therapy 03/02/25 03/02/25 Ankush Jean RN Registered Nurse Infusion Therapy 03/23/25 03/23/25 documented as of this encounter
[2025-04-22 05:17] LABS: Procalcitonin 0.144 ng/mL (0.0-2.0)
--- NOTE | 2025-04-22 05:18 | PC.NURSE ---
Report called to ANTHONY Ferguson
--- NOTE | 2025-04-22 05:30 | P.HP_ITS ---
History of Present Illness *Admission Date: 04/22/25 *Reason for visit:: Palpitations, leukocytosis *History of present illness: 64-year-old with history of metastatic breast cancer on chemotherapy presents with palpitations and leukocytosis. Patient states that last chemotherapy occurred 10 days ago at [facility]. Patient attempted to sleep overnight, and awoken by palpitations. Patient then had her bring her to the hospital for evaluation. Patient's heart rate 150s in the emergency room. WBC 42.1, UA positive for nitrates, +3 leuk esterase, +2 bacteria in emergency room. Denies fevers, chills, known sick contacts, recent travel, falls, accidents, dysuria, dizziness, new shortness of breath, chest pain, abdominal pain, GI bleeding, headaches. Patient's accompanied patient to the hospital and collaborates the story. States at baseline she has 1 kidney. States last episode of A-fib with RVR occurred 10 years ago. Discontinued Xarelto 9 years ago secondary to GI bleeding issues. States she underwent nephrectomy after recurrent lithotripsy causing irreparable kidney damage. Patient's vital signs 113/59?HR 144-97% on room air?RR 16 during my evaluation emergency room. [facility] Disclaimer: The information contained in this section may have been updated after the patient was seen, as this information can be updated by other users. Medical History (Updated 04/22/25 @ 04:37 by Sinai Reveles MD) Atrial fibrillation with RVR Breast cancer History of kidney cancer Social History (Updated 04/22/25 @ 04:40 by Sinai Reveles MD) Smoking Status: Never smoker alcohol intake: never current occupational status: other Travel in the last 8 weeks?: None Review of Systems Review of Systems Review of systems:: pertinent systems reviewed and negative unless documented below Review of systems (narrative): see [place] [place] [facility] Constitutional Constitutional: Reports system reviewed and no additional complaints, except as documented Meds Home Medications and Allergies New Prescriptions to Start Prescriptions: Allergies Allergy/AdvReac Type Severity Reaction Status Date / Time No Known Allergies Allergy Verified 04/22/25 03:03 Exam Data for Last 24 hours Vital signs and Labs for Last 24 Hours: Temp Pulse Resp BP Pulse Ox O2 Del Method 98.1 F 105 H 16 111/72 95 Room Air 04/22/25 02:51 04/22/25 04:31 04/22/25 04:31 04/22/25 04:31 04/22/25 04:31 04/22/25 02:51 Laboratory Results - last 24 hr 04/22/25 02:54: Urine Color Yellow, Urine Appearance Clear, Urine pH 6.0, Ur Specific [place] 1.010, Urine Protein 2+ A, Urine Glucose (UA) Negative, Urine Ketones Negative, Urine Blood 2+ A, Urine Nitrate Positive A, Urine Bilirubin Negative, Urine Urobilinogen 0.2, Ur Leukocyte Esterase 3+ A, Urine RBC 10-20, Urine WBC 20-50, Ur Squamous Epith Cells 10-20, Urine Bacteria 2+ 04/22/25 02:55: WBC 42.1 H*, RBC 3.87 L, Hgb 11.6 L, Hct 34.7 L, MCV 89.7, MCH 30.0, MCHC 33.4, RDW 17.2, Plt Count 342, MPV 9.6, Neut % (Auto) 71.4, Lymph % (Auto) 4.5 L, [place] % (Auto) 7.4, Eos % (Auto) 0.1, Baso % (Auto) 0.1, Neut # (Auto) 30.1 H, Lymph # (Auto) 1.9, [place] # (Auto) 3.1 H, Eos # (Auto) 0.0, Baso # (Auto) 0.1, Total Counted 100, Neutrophils % (Manual) 40 L, Band Neutrophils % 43 H, Lymphocytes % (Manual) 16, Monocytes % (Manual) 1 L, Platelet Estimate Not Reportable, RBC Morphology Not Reportable, D-Dimer 0.96 H, Sodium 138, Potassium 3.2 L, Chloride 107, Carbon Dioxide 22, Anion Gap 12.2, BUN 12, Creatinine 0.80, Estimated Creat Clear 91, Estimated GFR 72, Est GFR ( Amer) 88, Glucose 138 H, Calcium 9.4, Total Bilirubin 0.6, AST 34, ALT 42, Alkaline Phosphatase 212 H, Troponin I < 0.01, Total Protein 6.6, Albumin 4.1, Globulin 2.5, Albumin/Globulin Ratio 1.6, Procalcitonin 0.144, TSH 2.73, Free T4 1.42, HCV Ab NAVIN w/Rflx PCR Qn Negative, HIV Ag/Ab Combo Qual Negative I & O for Last 24 hours: Intake & Output 04/19/25 04/20/25 04/21/25 04/22/25 23:59 23:59 23:59 23:59 Intake Total 100 / 100 Balance 100 / 100 Weight 99.79 kg *Routine HEENT Exam Head: Present normocephalic Eye: Present EOMI ENT: Present mucous membranes dry *Routine Neck Exam Neck: Present supple and full ROM *Routine Respiratory Exam Respiratory: Present accessory muscle use and CTA bilaterally *Routine Cardiovascular Exam Cardiovascular: Present irregularly irregular *Routine Abdominal Exam Abdominal: Present soft and normoactive bowel sounds *Routine Rectal Exam Rectal:: deferred *Routine Genitalia Exam Genitalia:: deferred *Routine Extremities Exam Extremities: Present full ROM and normal capillary refill Routine Back/Spine/Pelvis Exam Back/Spine: Present full ROM *Routine Skin Exam Skin: Present intact *Routine Neurological Exam Neurological: Present alert and oriented X3 Assessment and Plan *Assessment and plan (1) Atrial fibrillation with RVR: Status: Acute Category: Medical Code(s): I48.91 - Unspecified atrial fibrillation (2) UTI (urinary tract infection): Status: Acute Category: Medical Code(s): N39.0 - Urinary tract infection, site not specified (3) Sepsis: Status: Acute Category: Medical Code(s): A41.9 - Sepsis, unspecified organism Plan 64-year-old with hypertension, status post nephrectomy secondary to repeat lithotripsy, atrial fibrillation discontinued Xarelto secondary to GI bleeding issues 9 years ago, metastatic breast cancer with known mets to back presents with palpitations and leukocytosis. Patient admitted for A-fib with RVR secondary to SIRS from genitourinary infection. Processes below Sepsis UTI ? Zosyn 4.5 g x 1 then 3.375 IV Q6, blood cultures/urine culture started emergency room, WBC 42.1. Repeat WBC and follow trend. Ordered stat lactic acid/procalcitonin at time of admission. 2 L LR sepsis bolus given in emergency room at time of admission. Will continue NS at 100 cc/h. If patient's clinical condition does not improve with beforementioned treatment, would recommend CT abdomen/pelvis rule out pelvic abscess. A-fib with RVR ? Diltiazem 10 mg IVP x 2 given in emergency room. Start Cardizem drip gtt. at 5 mg/h and titrate to heart rate less than 110, cardiac monitoring, consult cardiology, consider as needed Lopressor for heart rate control if necessary. TSH 2.73. First troponin less than 0.01. Admit to ICU for Cardizem drip if needed. No heparin drip given history of profuse GI bleeding 9 years ago causing discontinuation of Xarelto. ? NA 138, CL 107, CO2 22. ? If tachycardia does not improve with IV fluids and RVR treatment, will consider CTA chest to rule out PE. Hypokalemia: ? K3.2 start potassium 40 mill equivalents p.o. twice daily x 2 doses. Check magnesium level and correct if needed. Breast cancer: ?Last chemotherapy [facility] 10 days ago. Hold chemotherapy for now. Morphine 2 mg IV every 6 as needed severe pain. Oxycodone 5 mg p.o. every 6 as needed moderate pain. Hypertension: Hydralazine 10 mg IV every 6 as needed SBP greater than 170. PPx heparin 5000 subcu 3 times daily CODE STATUS full. FEN: Cardiac diet MDM ? I spoke with emergency room doc at time of hospital admission ? I made decision to admit patient to hospital for treatment of A-fib with RVR and genitourinary sepsis ?Patient had sepsis that A-fib with RVR pose risk to life or bodily function Discharge planning: Patient will likely spent over 2 midnights in hospital hospitalization 35 minutes total care time spent on patient by myself, liana Billingsley MD, 04/22/2025
[2025-04-22] MEDS: LACTATED RINGERS 1000ML 640 ML 999 ML IV (05:32)
--- NOTE | 2025-04-22 05:44 | PC.NURSE ---
patient arrived by stretcher @05:45
--- NOTE | 2025-04-22 06:13 | PC.NURSE ---
Pt arrived to room 218 at 0550
--- NOTE | 2025-04-22 06:20 | ECG_ITS ---
APPROVED REPORT Exam: Resting ECG HR:82 bpm ECG Measurements Heart Rate 82 AXES SC 161 P 41 QRSd 93 QRS -11 QT 360 T 32 QTc 399 Conclusion SINUS RHYTHM NONSPECIFIC T-WAVE ABNORMALITY BORDERLINE ECG UNCONFIRMED REPORT Electronically signed by : Steven Fowler MD 04/22/2025 08:38:38
[2025-04-22] MEDS: dilTIAZem ER 120MG CAPSULE 240 MG PO (06:48)
--- OUTSIDE RECORDS SUMMARY | 2025-04-22 08:24 | XMS_ITS | Encounter Summary ---
Author Organization [place] [address] Care Team Providers Care Gear Room Keeper Name Role Phone Idania Cobb RN Unavailable Maxx Khan MD Unavailable [phone] Obdulia Mazariegos RN Unavailable Unavailable Bhavesh Poole MD Unavailable Elena Buck Clerical Staff Unavailable Francisca Oconnor RN Unavailable Unava ilable Ankush Jean RN Unavailable Unavailable Reason for Visit * Reason Onset Date Comments Follow-up 02/09/2025 Encounter Details Date Type Department Care Team (Late st Contact Info) Description 02/09/2025 Telephone [facility] [place] [address] Yenni Shankar, ANTHONY Follow-up Social [...] back for next steps (will pt need residential thru chemo appt) documented in this encounter Plan of Treatment Upcoming Encounters Date Type Department Care Team (Late st Contact Info) Description 05/01/2025 12:30 PM EST Appointment [facility] [address] Maxx Khan MD [address] [place] [address] [place] [address] 05/04/2025 8:15 AM EST Appointment [place] [address] 05/04/2025 8:45 AM EST Appointment [facility] [place] [address] Maxx Khan MD [address] [facility] [address] 05/04/2025 9:00 AM EST Appointment [facility] [place], [place] [id number] 05/28/2025 10:30 AM EST Appointment [place] [address] Maxx Khan MD [address] [place] [address] [facility] [place] [address] 06/26/2025 10:15 AM EST Appointment [facility] [place] [address] Consuelo Ugarte APRN [address] [place] [address] [place] [address] documented as of this encounter Goals Goal Patient Goal Type Associated Problems Recent Progress Patient-Stated? Author Breast Health Breast Health Yenni Funk, RN Note: Patient acknowledges understanding of new diagnosis, plan of care, available resources and how to contact Nurse Navigator with any future questions or concerns. documented as of this encounter Visit Diagnoses Not on filedocumented in this encounter Care Teams Gear Room Keeper Relationship Specialty Start Date End Date Idania Cobb RN Oncology Nurse Navigator 01/22/25 Maxx Khan MD [address] [facility] [place] [address] Medical Oncologist Internal Medicine-Medical Oncology 02/18/25 Obdulia Mazariegos, ANTHONY Registered Nurse 02/18/25 Bhavesh Poole MD [address] [place] [address] Radiation Oncologist Radiology-Radiation Oncology 02/24/25 Elena Buck, Clerical Staff Financial Counselor 02/27/25 Francisca Oconnor, ANTHONY Registered Nurse Infusion Therapy 03/02/25 03/02/25 Ankush Jean, ANTHONY Registered Nurse Infusion Therapy 03/23/25 03/23/25 documented as of this encounter
--- OUTSIDE RECORDS SUMMARY | 2025-04-22 08:24 | XMS_ITS | Encounter Summary ---
Author Organization [place] [address] Care Team Providers Care Screw Driver Operator Name Role Phone Idania Cobb RN Unavailable Maxx Khan MD Unavailable [phone] Obdulia Mazariegos RN Unavailable Unavailable Bhavesh Poole MD Unavailable Elena Buck Clerical Staff Unavailable Francisca Oconnor RN Unavailable Unava ilable Ankush Jean RN Unavailable Unavailable Reason for Visit * Reason Onset Date Comments Other 02/06/2025 Exercise RX Encounter Details Date Type Department Care Team (Late st Contact Info) Description 02/06/2025 Telephone [facility] Women's Wellness [place] [id number] Yenni Shankar RN Other (Exercise RX) Social [...] 12:30 PM EST Appointment [facility] [place] [address] Maxx Khan MD [address] [place] [address] 05/04/2025 8:15 AM EST Appointment [facility] [place], [place] [id number] 05/04/2025 8:45 AM EST [facility]ointment [facility] [place] [address] Maxx Khan MD [address] [facility] [place] [address] 05/04/2025 9:00 AM EST Appointment [facility] [place], [place] [id number] 05/28/2025 10:30 AM EST Appointment [facility] [place] [address] Maxx Khan MD [address] [place] [address] [address] [place], [place] [address] 06/26/2025 10:15 AM EST Appointment [facility] [place] [address] Consuelo Ugarte APRN [address] [facility] [place] [address] documented as of this encounter Goals Goal Patient Goal Type Associated Problems Recent Progress Patient-Stated? Author Breast Health Breast Health Yenni Funk, RN Note: Patient acknowledges understanding of new diagnosis, plan of care, available resources and how to contact Nurse Navigator with any future questions or concerns. documented as of this encounter Visit Diagnoses Not on filedocumented in this encounter Care Teams Screw Driver Operator Relationship Specialty Start Date End Date Idania Cobb RN Oncology Nurse Navigator 01/22/25 Maxx Khan MD [address] [facility] [place] [address] Medical Oncologist Internal Medicine-Medical Oncology 02/18/25 Obdulia Mazariegos, RN Registered Nurse 02/18/25 Bhavesh Poole MD [address] [place] [address] Radiation Oncologist Radiology-Radiation Oncology 02/24/25 Elena Buck, Clerical Staff Financial Counselor 02/27/25 Francisca Oconnor, ANTHONY Registered Nurse Infusion Therapy 03/02/25 03/02/25 Ankush Jean, ANTHONY Registered Nurse Infusion Therapy 03/23/25 03/23/25 documented as of this encounter
--- OUTSIDE RECORDS SUMMARY | 2025-04-22 08:24 | XMS_ITS | Encounter Summary ---
Author Organization [place] [address] Care Team Providers Care Director Call Name Role Phone Idania Cobb RN Unavailable Maxx Khan MD Unavailable Obdulia Mazariegos RN Unavailable Unavailable Bhavesh Poole MD Unavailable Encounter Details Date Type Department Care Team (Late st Contact Info) Description 02/16/2025 Orders Only [facility] 1 [place] [address] Provider, [address] [place] [address] Social History Tobacco Use Types Packs/Day Years [...] PM EST Appointment [facility] [place] [address] Maxx Khan MD [address] [facility] [place] [address] 05/04/2025 8:15 AM EST Appointment [facility] [place] [address] 05/04/2025 8:45 AM EST [facility]ointment [facility] [place] [address] Maxx Khan MD [address] [facility] [place] [address] 05/04/2025 9:00 AM EST Appointment [facility] [place] [address] 05/28/2025 10:30 AM EST Appointment [facility] [place] [address] Maxx Khan MD [address] [facility] [place] [address] 06/26/2025 10:15 AM EST Appointment [facility] [address] Consuelo Ugarte APRN [address] [facility] [place] [address] documented as of this encounter Goals Goal [...] HEMATOLOGY ORDERABLES Final Result Performing Organization Address City/State/[facility] Co de Phone Number [facility] [phone] [facility] [address] [phone] documented in this encounter Visit Diagnoses Not on filedocumented in this encounter Care Teams Director Call Relationship Specialty Start Date End Date Idania Cobb RN Oncology Nurse Navigator 01/22/25 Maxx Khan MD 1 [place] [address] Medical Oncologist Internal Medicine-Medical Oncology 02/18/25 Obdulia Mazariegos, ANTHONY Registered Nurse 02/18/25 Bhavesh Poole MD 1 [place] [address] Radiation Oncologist Radiology-Radiation Oncology 02/24/25 documented as of this encounter
--- OUTSIDE RECORDS SUMMARY | 2025-04-22 08:24 | XMS_ITS | Encounter Summary ---
Author Organization [place] [address] Care Team Providers Care Engraver Pantograph Name Role Phone Idania Cobb RN Unavailable Maxx Khan MD Unavailable [phone] Obdulia Mazariegos RN Unavailable Unavailable Bhavesh Poole MD Unavailable Elena Buck Clerical Staff Unavailable Francisca Oconnor RN Unavailable Unava ilable Ankush Jean RN Unavailable Unavailable Encounter Details Date Type Department Care Team (Late st Contact Info) Description 02/17/2025 Results Follow-Up [facility] 1 [place] [address] Celina Mckay [facility] 1 [place] [address] GENETIC SCANNING Social History Tobacco [...] PM EST Appointment [facility] [place] [address] Maxx Khan MD [address] [facility] [place] [address] 05/04/2025 8:15 AM EST Appointment [place] [address] 05/04/2025 8:45 AM EST [facility]ment [facility] [place] [address] Maxx Khan MD [address] [place] [address] [address] [place] [address] 05/04/2025 9:00 AM EST Appointment [facility] [place], [place] 1548[address] 05/28/2025 10:30 AM EST Appointment [facility] [place] [address] Maxx Khan MD [address] [place] [address] [place] [address] 06/26/2025 10:15 AM EST Appointment [place] [address] Consuelo Ugarte APRN [address] [facility] [address] [place] [address] documented as of this encounter Goals Goal Patient Goal Type Associated Problems Recent Progress Patient-Stated? Author Breast Health Breast Health Yenni Funk RN Note: Patient acknowledges understanding of new diagnosis, plan of care, available resources and how to contact Nurse Navigator with any future questions or concerns. documented as of this encounter Visit Diagnoses Not on filedocumented in this encounter Care Teams Engraver Pantograph Relationship Specialty Start Date End Date Idania Cobb RN Oncology Nurse Navigator 01/22/25 Maxx Khan MD 1 [place] [address] Medical Oncologist Internal Medicine-Medical Oncology 02/18/25 Obdulia Mazariegos, ANTHONY Registered Nurse 02/18/25 Bhavesh Poole MD 1 [place] [address] Radiation Oncologist Radiology-Radiation Oncology 02/24/25 Elena Buck, Clerical Staff Financial Counselor 02/27/25 Francisca Oconnor, RN Registered Nurse Infusion Therapy 03/02/25 03/02/25 Ankush Jean, ANTHONY Registered Nurse Infusion Therapy 03/23/25 03/23/25 documented as of this encounter
--- OUTSIDE RECORDS SUMMARY | 2025-04-22 08:24 | XMS_ITS | Encounter Summary ---
Author Organization [place] [address] Care Team Providers Care State Trooper Name Role Phone Idania Cobb RN Unavailable Maxx Khan MD Unavailable [phone] Obdulia Mazariegos RN Unavailable Unavailable Bhavesh Poole MD Unavailable Elena Buck Clerical Staff Unavailable Francisca Oconnor RN Unavailable Unava ilable Reason for Visit * Reason Onset Date Comments Other 01/22/2025 MRI BILL - [facility] for [facility]ure? Encounter Details Date Type Department Care Team (Late st Contact Info) Description 01/22/[address] [facility] [place] [id number] Rachel Jeronimo RN Other (MRI BILL - [...] her a message requesting areturn call to [facility]. * Telephone Encounter - Rachel Jeronimo RN [...] for cost of MRI and one from [facility]. She thought that [facility] would also cover [...] Info) Description 05/01/2025 12:30 PM EST Appointment [facility] [address] [place], [place] [id number] Maxx Khan MD [address] [place] [address] [place] [address] 05/04/2025 8:15 AM EST Appointment [place] [address] 05/04/2025 8:45 AM EST Appointment [facility] [place], [place] [phone] Maxx Khan MD [address] [place] [address] [place] [address] 05/04/2025 9:00 AM EST Appointment [facility] [place], [place] [id number] 05/28/2025 10:30 AM EST Appointment [facility] [place] [address] Maxx Khan MD [address] [facility] [place] [address] 06/26/2025 10:15 AM EST Appointment [facility] [place] [address] Consuelo Ugarte APRN [address] [facility] [place] [address] documented as of this encounter Goals Goal Patient Goal Type Associated Problems Recent Progress Patient-Stated? Author Breast Health Breast Health Yenni Funk RN Note: Patient acknowledges understanding of new diagnosis, plan of care, available resources and how to contact Nurse Navigator with any future questions or concerns. documented as of this encounter Visit Diagnoses Not on filedocumented in this encounter Care Teams State Trooper Relationship Specialty Start Date End Date Idania Cobb RN Oncology Nurse Navigator 01/22/25 Maxx Khan MD [address] [facility] [address] [place], [place] [id number] Medical Oncologist Internal Medicine-Medical Oncology 02/18/25 Obdulia Mazariegos, RN Registered Nurse 02/18/25 Bhavesh Poole MD 1 [place] [address] Radiation Oncologist Radiology-Radiation Oncology 02/24/25 Elena Buck, Clerical Staff Financial Counselor 02/27/25 Francisca Oconnor, ANTHONY Registered Nurse Infusion Therapy 03/02/25 03/02/25 documented as of this encounter
--- OUTSIDE RECORDS SUMMARY | 2025-04-22 08:24 | XMS_ITS | Encounter Summary ---
Author Organization [place] [address] Care Team Providers Care Coding Team Lead Name Role Phone Idania Cobb RN Unavailable Maxx Khan MD Unavailable [phone] Obdulia Mazariegos RN Unavailable Unavailable Bhavesh Poole MD Unavailable Elena Buck Clerical Staff Unavailable Francisca Oconnor RN Unavailable Unava ilable Ankush Jean RN Unavailable Unavailable Encounter Details Date Type Department Care Team (Late st Contact Info) Description 02/12/2025 Results Follow-Up [facility] [place] [id number] Tresa Jacinto, [address] [place] [address] SKULL BASE TO MID THIGH [...] Description 05/01/2025 12:30 PM EST Appointment [facility] [place] [address] Maxx Khan MD [address] [facility] [address] 05/04/2025 8:15 AM EST Appointment [place] [address] 05/04/2025 8:45 AM EST [facility]ment [facility] [place] [address] Maxx Khan MD [address] [facility] [address] [place] [address] 05/04/2025 9:00 AM EST Appointment [facility] [place], [place] [id number] 05/28/2025 10:30 AM EST Appointment [facility] [address] Maxx Khan MD [address] [place] [address] 06/26/2025 10:15 AM EST Appointment [facility] [place] [address] Consuelo Ugarte APRN [address] [facility] [address] [place] [address] documented as of this encounter Goals Goal Patient Goal Type Associated Problems Recent Progress Patient-Stated? Author Breast Health Breast Health Yenni Funk RN Note: Patient acknowledges understanding of new diagnosis, plan of care, available resources and how to contact Nurse Navigator with any future questions or concerns. documented as of this encounter Visit Diagnoses Not on filedocumented in this encounter Care Teams Coding Team Lead Relationship Specialty Start Date End Date Idania Cobb RN Oncology Nurse Navigator 01/22/25 Maxx Khan MD 1 [place], [place] [phone] Medical Oncologist Internal Medicine-Medical Oncology 02/18/25 Obdulia Mazariegos, ANTHONY Registered Nurse 02/18/25 Bhavesh Poole MD 1 [place] [address] Radiation Oncologist Radiology-Radiation Oncology 02/24/25 Elena Buck, Clerical Staff Financial Counselor 02/27/25 Francisca Oconnor, ANTHONY Registered Nurse Infusion Therapy 03/02/25 03/02/25 Ankush Jean, ANTHONY Registered Nurse Infusion Therapy 03/23/25 03/23/25 documented as of this encounter
--- OUTSIDE RECORDS SUMMARY | 2025-04-22 08:25 | XMS_ITS | Encounter Summary ---
Author Organization [place] [address] Care Team Providers Care Mine Engineering Manager Name Role Phone Idania Cobb RN Unavailable Maxx Khan MD Unavailable [phone] Obdulia Mazariegos RN Unavailable Unavailable Bhavesh Poole MD Unavailable Elena Buck Clerical Staff Unavailable Encounter Details Date Type Department Care Team (Late st Contact Info) Description 03/18/2025 Orders Only [facility] Cancer [facility] [place] [address] Bhavesh Poole MD [address] [place], [place] [id number] Social History Tobacco Use Types Packs/Day Years [...] Description 05/01/2025 12:30 PM EST Appointment [facility] [place] [address] Maxx Khan MD [address] [place] [address] [place] [address] 05/04/2025 8:15 AM EST Appointment [facility] [place], [place] [id number] 05/04/2025 8:45 AM EST [facility]ointment [facility] [place] [address] Maxx Khan MD 1 [facility] [place] [address] 05/04/2025 9:00 AM EST Appointment [facility] [place], [place] 6948217 05/28/2025 10:30 AM EST Appointment [facility] [address] [place], [place] [address] Maxx Khan MD 1 [facility] [place] [address] 06/26/2025 10:15 AM EST Appointment [facility] RAD ONC [place], [place] [phone] Consuelo Ugarte APRN 1 [facility] [place] [address] documented as of this encounter Goals Goal [...] ARIA Dosage Given to Date in Gy [id number] ARIA Session Dosage Given in Gy [id number] ARIA Reference Point ID [id number] ARIA Dosage Given to Date in Gy [id number] ARIA Session Dosage Given in Gy [id number] ARIA Reference Point ID [id number] ARIA Dosage Given to Date in Gy [id number] ARIA Session Dosage Given in Gy [id number] ARIA Reference Point ID [id number] ARIA [...] ORDERABLES Fi nal Result Performing Organization Address City/State/[facility] Co de Phone Number ARI [address] [place] [address] documented in this encounter Visit Diagnoses Not on filedocumented in this encounter Care Teams Mine Engineering Manager Relationship Specialty Start Date End Date Idania Cobb RN Oncology Nurse Navigator 01/22/25 Maxx Khan MD 1 [facility] [place] [address] Medical Oncologist Internal Medicine-Medical Oncology 02/18/25 Obdulia Mazariegos, ANTHONY Registered Nurse 02/18/25 Bhavesh Poole MD 1 [place] [address] Radiation Oncologist Radiology-Radiation Oncology 02/24/25 Elena Buck, Clerical Staff Financial Counselor 02/27/25 documented as of this encounter
--- OUTSIDE RECORDS SUMMARY | 2025-04-22 08:25 | XMS_ITS | Encounter Summary ---
Author Organization [place] [address] Care Team Providers Care Experimental Display Builder Name Role Phone Idania Cobb RN Unavailable Maxx Khan MD Unavailable [phone] Obdulia Mazariegos RN Unavailable Unavailable Bhavesh Poole MD Unavailable Elena Buck Clerical Staff Unavailable Encounter Details Date Type Department Care Team (Late st Contact Info) Description 03/16/2025 Orders Only [facility] [place] [address] Esperanza Monsalve APRN [address] [place] [address] Acute cystitis with hematuria (Primary Dx) [...] EST Appointment [facility] [place] [address] Maxx Khan MD [address] [facility] [address] [place] [id number] 05/04/2025 8:15 AM EST Appointment [place] [address] 05/04/2025 8:45 AM EST Appointment [facility] [place] [address] Maxx Khan MD [address] [facility] [address] [place] [facility] 05/04/2025 9:00 AM EST Appointment [facility] [place], [place] [id number] 05/28/2025 10:30 AM EST Appointment [facility] [place] [address] Maxx Khan MD [address] [facility] [place] [address] 06/26/2025 10:15 AM EST Appointment [facility] [place] [address] Consuelo Ugarte APRN [address] [place] [address] [place] [address] documented as of this encounter Goals [...] cystitis documented in this encounter Care Teams Experimental Display Builder Relationship Specialty Start Date End Date Idania Cobb RN Oncology Nurse Navigator 01/22/25 Maxx Khan MD 1 [facility] [place] [address] Medical Oncologist Internal Medicine-Medical Oncology 02/18/25 Obdulia Mazariegos, ANTHONY Registered Nurse 02/18/25 Bhavesh Poole MD 1 [place] [address] Radiation Oncologist Radiology-Radiation Oncology 02/24/25 Elena Buck, Clerical Staff Financial Counselor 02/27/25 documented as of this encounter
--- OUTSIDE RECORDS SUMMARY | 2025-04-22 08:25 | XMS_ITS | Encounter Summary ---
Author Organization [place] [address] Care Team Providers Care Health Services Coordinator Name Role Phone Idania Cobb RN Unavailable Maxx Khan MD Unavailable [phone] Obdulia Mazariegos RN Unavailable Unavailable Bhavesh Poole MD Unavailable Elena Buck Clerical Staff Unavailable Ankush Jean RN Unavailable Unavailable Encounter Details Date Type Department Care Team (Late st Contact Info) Description 03/18/2025 Results Follow-Up [facility] [place] [id number] Esperanza Monsalve APRN [address] [place], [place] [phone] URINALYSIS REFLEX, EXTRA DELGADO URINE CX, URINE [...] PM EST Appointment [facility] CT [place] [phone] Maxx Khan MD 1 [facility] [address] [place] [address]17 05/04/2025 8:15 AM EST Appointment [facility] [place], [place] [id number] 05/04/2025 8:45 AM EST Appointment [facility] [place], [place] 1919[address] Maxx Khan MD 1 [facility] [address] [place], [place] 3278717 05/04/2025 9:00 AM EST Appointment [facility] [place], [place] 0786217 05/28/2025 10:30 AM EST Appointment [facility] [place] [address] Maxx Khan MD 1 [facility] [place] [address] 06/26/2025 10:15 AM EST Appointment [facility] [place] [place] [address] Consuelo Ugarte APRN [address] [place] [address] [place] [address] documented as of this encounter Goals Goal Patient Goal Type Associated Problems Recent Progress Patient-Stated? Author Breast Health Breast Health Yenni Funk RN Note: Patient acknowledges understanding of new diagnosis, plan of care, available resources and how to contact Nurse Navigator with any future questions or concerns. documented as of this encounter Visit Diagnoses Not on filedocumented in this encounter Care Teams Health Services Coordinator Relationship Specialty Start Date End Date Idania Cobb, ANTHONY Oncology Nurse Navigator 01/22/25 Maxx Khan MD 1 [facility] [place] [address] Medical Oncologist Internal Medicine-Medical Oncology 02/18/25 Obdulia Mazariegos, RN Registered Nurse 02/18/25 Bhavesh Poole MD 1 [place] [address] Radiation Oncologist Radiology-Radiation Oncology 02/24/25 Elena Buck, Clerical Staff Financial Counselor 02/27/25 Ankush Jean, ANTHONY Registered Nurse Infusion Therapy 03/23/25 03/23/25 documented as of this encounter
--- OUTSIDE RECORDS SUMMARY | 2025-04-22 08:25 | XMS_ITS | Encounter Summary ---
Author Organization [place] [address] Care Team Providers Care Certified Executive Chef Name Role Phone Idania Cobb RN Unavailable Maxx Khan MD Unavailable [phone] Obdulia Mazariegos RN Unavailable Unavailable Bhavesh Poole MD Unavailable Elena Buck Clerical Staff Unavailable Francisca Oconnor RN Unavailable Unava ilable Ankush Jean RN Unavailable Unavailable Encounter Details Date Type Department Care Team (Late st Contact Info) Description 01/20/2025 Orders Only [facility] [place] [address] Elena Young MD [address] [place] [address] Social History Tobacco Use Types Packs/Day Years [...] Description 05/01/2025 12:30 PM EST Appointment [facility] [place] [address] Maxx Khan MD [address] [place] [address] [place] [address] 05/04/2025 8:15 AM EST Appointment [facility] [place] [address] 05/04/2025 8:45 AM EST Appointment [facility] [place] [address] Maxx Khan MD [address] [place] [address] 05/04/2025 9:00 AM EST Appointment [facility] [place] [address] 05/28/2025 10:30 AM EST Appointment [facility] [place] [address] Maxx Khan MD [address] [place] [address] [facility] [place] [address] 06/26/2025 10:15 AM EST Appointment [facility] [place] [address] Consuelo Ugarte APRN [address] [place] [address] [facility] [place] [address] documented as of this encounter Procedures Procedure Name Priority Date/Time Associated Diagnosis Comments NEOGENOMICS BREAST PANEL (3 STAIN) Routine 01/20/2025 10:41 AM EDT documented in this encounter Results * NEOGENOMICS BREAST PANEL (3 STAIN) (01/20/2025 10:41 AM EDT) 01/20/2025 10:4 1 AM EDT Narrative [facility] - 01/24/2025 8:59 PM EDT Requesting Provider: NICOLASA Patel Specimen = [id number] us Elena Young MD PATHOLOGY ORDERABLES Final R esult [facility] [address] [place] [address] documented in this encounter Visit Diagnoses Not on filedocumented in this encounter Care Teams Certified Executive Chef Relationship Specialty Start Date End Date Idania Cobb, RN Oncology Nurse Navigator 01/22/25 Maxx Khan MD 1 [place] [address] Medical Oncologist Internal Medicine-Medical Oncology 02/18/25 Obdulia Mazariegos, ANTHONY Registered Nurse 02/18/25 Bhavesh Poole MD 1 [place], [place] [phone] Radiation Oncologist Radiology-Radiation Oncology 02/24/25 Elena Buck, Clerical Staff Financial Counselor 02/27/25 Francisca Oconnor, RN Registered Nurse Infusion Therapy 03/02/25 03/02/25 Ankush Jean, ANTHONY Registered Nurse Infusion Therapy 03/23/25 03/23/25 documented as of this encounter
--- OUTSIDE RECORDS SUMMARY | 2025-04-22 08:25 | XMS_ITS | Encounter Summary ---
Author Organization [place] [address] Care Team Providers Care Calculation Reviewer Name Role Phone Idania Cobb RN Unavailable Maxx Khan MD Unavailable [phone] Obdulia Mazariegos RN Unavailable Unavailable Bhavesh Poole MD Unavailable Elena Buck Clerical Staff Unavailable Francisca Oconnor RN Unavailable Unava ilable Ankush Jean RN Unavailable Unavailable Encounter Details Date Type Department Care Team (Late st Contact Info) Description 01/20/2025 Orders Only [facility] One [facility] [place] [address] Elena Young MD [address] [place] [address] Social History Tobacco Use Types Packs/Day Years [...] Appointment [facility] [place] [address] Maxx Khan MD [address] [place] [address] [place] [address] 05/04/2025 8:15 AM EST Appointment [place] [address] 05/04/2025 8:45 AM EST Appointment [facility] [place] [address] Maxx Khan MD [address] [facility] [place] [place] [address] 05/04/2025 9:00 AM EST Appointment [facility] [place] [address] 05/28/2025 10:30 AM EST Appointment [facility] [place] [address] Maxx Khan MD [address] [place] [address] [facility] [place] [address] 06/26/2025 10:15 AM EST Appointment [facility] [place] [address] Consuelo Ugarte APRN [address] [place] [address] [facility] [place] [address] documented as of this encounter Procedures Procedure Name Priority Date/Time Associated Diagnosis Comments NEOGENOMICS BREAST PANEL (3 STAIN) Routine 01/20/2025 10:41 AM EDT documented in this encounter Results * NEOGENOMICS BREAST PANEL (3 STAIN) (01/20/2025 10:41 AM EDT) 01/20/2025 10:4 1 AM EDT Narrative [facility] - 01/24/2025 9:40 PM EDT Requesting Provider: NICOLASA Patel Specimen = [id number] us Elena Young MD PATHOLOGY ORDERABLES Final R esult [facility] [address] [place] [address] documented in this encounter Visit Diagnoses Not on filedocumented in this encounter Care Teams Calculation Reviewer Relationship Specialty Start Date End Date Idania Cobb, RN Oncology Nurse Navigator 01/22/25 Maxx Khan MD 1 [place] [address] Medical Oncologist Internal Medicine-Medical Oncology 02/18/25 Obdulia Mazariegos, ANTHONY Registered Nurse 02/18/25 Bhavesh Poole MD 1 [place], [place] [phone] Radiation Oncologist Radiology-Radiation Oncology 02/24/25 Elena Buck, Clerical Staff Financial Counselor 02/27/25 Francisca Oconnor, RN Registered Nurse Infusion Therapy 03/02/25 03/02/25 Ankush Jean, ANTHONY Registered Nurse Infusion Therapy 03/23/25 03/23/25 documented as of this encounter
--- OUTSIDE RECORDS SUMMARY | 2025-04-22 08:25 | XMS_ITS | Encounter Summary ---
Author Organization [place] [address] Care Team Providers Care Compressor Assembler Name Role Phone Idania Cobb RN Unavailable Maxx Khan MD Unavailable [phone] Obdulia Mazariegos RN Unavailable Unavailable Bhavesh Poole MD Unavailable Elena Buck Clerical Staff Unavailable Reason for Visit * Reason Onset Date Comments Symptom Call 03/16/2025 Burning when uri nates, backache (started 03/14) Encounter Details Date Type Department Care Team (Late st Contact Info) Description 03/16/2025 Telephone [facility] [place] [phone] Maxx Khan MD [address] [place], [place] [address] Symptom Call (Burning when urinates, backache (started [...] the Patient seen at:[facility] Preferred call back number:[phone] documented in this encounter Plan of Treatment Upcoming Encounters Date Type Department Care Team (Late st Contact Info) Description 05/01/2025 12:30 PM EST Appointment [facility] [place] [address] Maxx Khan MD [address] [place] [address] [place] [address] 05/04/2025 8:15 AM EST Appointment [facility] [place], [place] [id number] 05/04/2025 8:45 AM EST Appointment [facility] [place] [address] Maxx Khan MD [address] [place] [address] [place] [address] 05/04/2025 9:00 AM EST Appointment [facility] [place], [place] 9563817 05/28/2025 10:30 AM EST Appointment [facility] [place] [address] Maxx Khan MD [address] [place] [address] [place] [address] 06/26/2025 10:15 AM EST Appointment [facility] [place] [address] Consuelo Ugarte APRN [address] [place] [address] [place] [address] documented as of this encounter Goals Goal [...] Positive Growth(A) 03/18/2025 10:20 AM EST PREFERRED DataEmail Group Culture >100,000 CFU/mL Escherichia coli SUSCEPTIBI LITY RESULT 03/18/2025 10:20 AM EST [facility] Urine STRUCTURE OF URINARY TRACT PROPER / [...] SUSCEPTIBILITY RESULT <=0.5/9.5 ug/mL: Susceptible Esperanza Monsalve KAIAKO KURA TUARUA MICROBIOLOGY - GENERAL ORDERAB LES Final Result [facility] [address] [facility] , [place] [address] * (ABNORMAL) URINALYSIS REFLEX (03/16/2025 12:27 PM [...] EST 03/16/2025 12:37 PM EST Esperanza Monsalve KAIAKO KURA TUARUA URINE ORDERABLES Final Result [facility] [address] [facility] , [place] [address] documented in this encounter Visit Diagnoses Diagnosis Acute low back pain without sciatica, unspecified back pain laterality- Primary Burning with urination Dysuria documented in this encounter Care Teams Compressor Assembler Relationship Specialty Start Date End Date Idania Cobb RN Oncology Nurse Navigator 01/22/25 Maxx Khan MD 1 [facility] [place] [address] Medical Oncologist Internal Medicine-Medical Oncology 02/18/25 Obdulia Mazariegos, RN Registered Nurse 02/18/25 Bhavesh Poole MD 1 [place] [address] Radiation Oncologist Radiology-Radiation Oncology 02/24/25 Elena Buck, Clerical Staff Financial Counselor 02/27/25 documented as of this encounter
--- OUTSIDE RECORDS SUMMARY | 2025-04-22 08:25 | XMS_ITS | Encounter Summary ---
Author Organization [place] [address] Care Team Providers Care Iron Pellet Tester Name Role Phone Idania Cobb RN Unavailable Maxx Khan MD Unavailable [phone] Obdulia Mazariegos RN Unavailable Unavailable Bhavesh Poole MD Unavailable Elena Buck Clerical Staff Unavailable Francisca Oconnor RN Unavailable Unava ilable Ankush Jean RN Unavailable Unavailable Encounter Details Date Type Department Care Team (Late st Contact Info) Description 01/20/2025 Orders Only [facility] [place] [address] Elena Young MD [address] [place] [address] Social History Tobacco Use Types Packs/Day Years [...] [facility] [place] [address] Maxx Khan MD [address] [place] [address] [place] [address] 05/04/2025 8:15 AM EST Appointment [place] [address] 05/04/2025 8:45 AM EST [facility]ointment [facility] [place] [address] Maxx Khan MD 1 [facility] [address] 05/04/2025 9:00 AM EST Appointment [facility] [place] [address] 05/28/2025 10:30 AM EST Appointment [facility] [place] [address] Maxx Khan MD [address] [place] [address] [facility] [place] [address] 06/26/2025 10:15 AM EST Appointment [facility] [place] [address] Consuelo Ugarte APRN [address] [place] [address] [facility] [place] [address] documented as of this encounter Procedures Procedure Name Priority Date/Time Associated Diagnosis Comments NEOGENOMICS BREAST PANEL (3 STAIN) Routine 01/20/2025 10:41 AM EDT documented in this encounter Results * NEOGENOMICS BREAST PANEL (3 STAIN) (01/20/2025 10:41 AM EDT) 01/20/2025 10:4 1 AM EDT Narrative [facility] - 01/24/2025 9:15 PM EDT Requesting Provider: NICOLASA Patel Specimen = [id number] us Elena Young MD PATHOLOGY ORDERABLES Final R esult [facility] [address] [place] [address] documented in this encounter Visit Diagnoses Not on filedocumented in this encounter Care Teams Iron Pellet Tester Relationship Specialty Start Date End Date Idania Cobb, RN Oncology Nurse Navigator 01/22/25 Maxx Khan MD 1 [place] [address] Medical Oncologist Internal Medicine-Medical Oncology 02/18/25 Obdulia Mazariegos, ANTHONY Registered Nurse 02/18/25 Bhavesh Poole MD 1 [place], [place] [phone] Radiation Oncologist Radiology-Radiation Oncology 02/24/25 Elena Buck, Clerical Staff Financial Counselor 02/27/25 Francisca Oconnor, RN Registered Nurse Infusion Therapy 03/02/25 03/02/25 Ankush Jean, ANTHONY Registered Nurse Infusion Therapy 03/23/25 03/23/25 documented as of this encounter
--- OUTSIDE RECORDS SUMMARY | 2025-04-22 08:25 | XMS_ITS | Encounter Summary ---
Author Organization [place] [address] Care Team Providers Care Vtc Technician Name Role Phone Idania Cobb RN Unavailable Maxx Kahn MD Unavailable [phone] Obdulia Mazariegos RN Unavailable Unavailable Bhavesh Poole MD Unavailable Elena Buck Clerical Staff Unavailable Encounter Details Date Type Department Care Team (Late st Contact Info) Description 03/16/2025 Orders Only [facility] [place] [address] Bhavesh Poole MD [address] [place], [place] [id number] Social History Tobacco Use Types Packs/Day Years [...] PM EST Appointment [facility] One [place] [id number] Maxx Khan MD [address] [place] [address] [place] [address] 05/04/2025 8:15 AM EST Appointment [facility] [place], [place] [address]2017 05/04/2025 8:45 AM EST Appointment [facility] [place] [address] Maxx Khan MD 1 [facility] [place] [place] [address] 05/04/2025 9:00 AM EST Appointment [facility] [place], [place] [id number] 05/28/2025 10:30 AM EST Appointment [facility] [address] [place], [place] [phone] Maxx Khan MD [address] [facility] [address] 06/26/2025 10:15 AM EST Appointment [place] [address] Consuelo Ugarte APRN [address] [place] [address] [place] [address] documented as of this encounter Goals Goal [...] ARIA Dosage Given to Date in Gy [id number] ARIA Session Dosage Given in Gy [id number] ARIA Reference Point ID [id number] ARIA Dosage Given to Date in Gy [id number] ARIA Session Dosage Given in Gy [id number] ARIA Reference Point ID [id number] ARIA Dosage Given to Date in Gy [id number] ARIA Session Dosage Given in Gy [id number] ARIA Reference Point ID [id number] ARIA [...] ORDERABLES Fi nal Result Performing Organization Address City/State/[facility] Co de Phone Number ARIA [address] [facility] [place] [address] documented in this encounter Visit Diagnoses Not on filedocumented in this encounter Care Teams Vtc Technician Relationship Specialty Start Date End Date Idania Cobb RN Oncology Nurse Navigator 01/22/25 Maxx Khan MD [address] [facility] [place] [address] Medical Oncologist Internal Medicine-Medical Oncology 02/18/25 Obdulia Mazariegos, ANTHONY Registered Nurse 02/18/25 Bhavesh Poole MD 1 [place] [address] Radiation Oncologist Radiology-Radiation Oncology 02/24/25 Elena Buck, Clerical Staff Financial Counselor 02/27/25 documented as of this encounter
--- OUTSIDE RECORDS SUMMARY | 2025-04-22 08:26 | XMS_ITS | Encounter Summary ---
Author Organization [place] [address] Care Team Providers Care Drop Forger Helper Name Role Phone Idania Cobb RN Unavailable Maxx Khan MD Unavailable [phone] Obdulia Mazariegos RN Unavailable Unavailable Bhavesh Poole MD Unavailable Elena Buck Clerical Staff Unavailable Reason for Visit * Reason Onset Date Comments Follow-up 03/04/2025 Chemo callback Encounter Details Date Type Department Care Team (Late st Contact Info) Description 03/04/2025 Telephone [facility] [place] [address] Maxx Khan MD [address] [place] [address] Follow-up (Chemo callback ) Social History [...] PM EST Appointment [facility] [place] [address] Maxx Khan MD [address] [place] [address] [address] [place] [id number] 05/04/2025 8:15 AM EST Appointment [facility] [place], [place] [id number] 05/04/2025 8:45 AM EST Appointment [facility] [place], [place] [phone] Maxx Khan MD [address] [place] [address] [address] [place] [id number] 05/04/2025 9:00 AM EST Appointment [facility] One [place], [place] 9005117 05/28/2025 10:30 AM EST Appointment [facility] One [facility] [place], [place] 2346217 Maxx Khan MD 1 [facility] [address] [place] 1434[address] 06/26/2025 10:15 AM EST Appointment [facility] RAD ONC [place], [place] [phone] Consuelo Ugarte APRN [address] [facility] [address] [place], [place] 86[address] documented as of this encounter Goals Goal Patient Goal Type Associated Problems Recent Progress Patient-Stated? Author Breast [facility] Breast Health Yenni Funk RN Note: Patient acknowledges understanding of new diagnosis, plan of care, available resources and how to contact Nurse Navigator with any future questions or concerns. documented as of this encounter Visit Diagnoses Not on filedocumented in this encounter Care Teams Drop Forger Helper Relationship Specialty Start Date End Date Idania Cobb RN Oncology Nurse Navigator 01/22/25 Maxx Khan MD [address] [facility] [address] [place], [place] [address] Medical Oncologist Internal Medicine-Medical Oncology 02/18/25 Obdulia Mazariegos, RN Registered Nurse 02/18/25 Bhavesh Poole MD 1 [place], [place] 2352017 Radiation Oncologist Radiology-Radiation Oncology 02/24/25 Elena Buck, Clerical Staff Financial Counselor 02/27/25 documented as of this encounter
--- OUTSIDE RECORDS SUMMARY | 2025-04-22 08:26 | XMS_ITS | Encounter Summary ---
Author Organization [place] [address] Care Team Providers Care Warehousing Technician Name Role Phone Idania Cobb RN Unavailable Maxx Khan MD Unavailable [phone] Obdulia Monet RN Unavailable Unavailable Bhavesh Poole MD Unavailable Elena Buck Clerical Staff Unavailable Encounter Details Date Type Department Care Team (Late st Contact Info) Description 03/16/2025 Orders Only [facility] [place] [address] Maxx Khan MD [address] [place] [phone] Invasive ductal carcinoma of breast, female, right [...] Description 05/01/2025 12:30 PM EST Appointment [facility] [place] [address] Maxx Khan MD 1 [facility] [place] [address] 05/04/2025 8:15 AM EST Appointment [facility] [place], [place] [id number] 05/04/2025 8:45 AM EST Appointment [facility] [place] [address] Maxx Khan MD [address] [place] [address] [place] [address] 05/04/2025 9:00 AM EST Appointment [facility] [place], [place] [id number] 05/28/2025 10:30 AM EST Appointment [facility] One [facility] [place] [address] Maxx Khan MD [address] [place] [address] [place] [address] 06/26/2025 10:15 AM EST Appointment [facility] [place] [address] Consuelo Ugarte APRN 1 [facility] [place] [address] documented as of this encounter Goals Goal [...] 136 - 145 mmol/L 03/17/2025 12:15 PM [facility] Potassium 3.3(L) 3.5 - 5.0 mmol/L 03/17/2025 12:15 PM [facility] Chloride 107 98 - 107 mmol/L 03/17/2025 12:15 PM [facility] Total CO2 22 22 - 29 mmol/L 03/17/2025 12:15 PM [facility] Anion Gap 13 7 - 16 mmol/L 03/17/2025 12:15 PM [facility] Calcium 8.8 8.8 - 10.4 mg/dL 03/17/2025 12:15 PM [facility] Glucose Lvl 128(H) 70 - 99 mg/dL 03/17/2025 12:15 PM [facility] BUN 12 8 - 23 mg/dL 03/17/2025 12:15 PM [facility] Creatinine 0.66 0.51 - 1.30 mg/dL 03/17/2025 12:15 PM [facility] Albumin 3.4 3.2 - 4.6 gm/dL 03/17/2025 12:15 PM [facility] Total Protein 6.4 6.4 - 8.3 gm/dL 03/17/2025 12:15 PM [facility] Bili Total 0.3 0.2 - 1.3 mg/dL 03/17/2025 12:15 PM [facility] ALT 33 <=41 U/L 03/17/2025 12:15 PM [facility] AST 18 <=40 U/L 03/17/2025 12:15 PM [facility] Alk Phos 126(H) 36 - 123 U/L 03/17/2025 12:15 PM [facility] eGFR (CKD-EPIcr 2020) 97 >=60 mL/min/1.7 3 m2 03/17/2025 12:15 PM [facility] Comment:Estimated GFR was ca lculated using the CKD-EPIcr (2020) equation refit without race. The equation is recommended by the National Kidney Foundation - [place] Society of Nephrology Task Force. Blood VENOUS STRUCTURE / Unknown Port / Unknown 03/17/2025 11:52 AM EST 03/17/2025 11:57 AM EST us Maxx Khan MD CHEMISTRY ORDERABLES Final Res ult [facility] 1 [place] [address] * (ABNORMAL) CBC WITH DIFF (03/17/2025 11:52 AM EST) WBC 9.8 3.7 - 10.3 x10(3)/mc L 03/17/2025 12:33 PM EST [facility] RBC 3.96 3.90 - 5.20 x10(6)/mc L 03/17/2025 12:33 PM EST [facility] Hgb 11.6 11.2 - 15.7 g/dL 03/17/2025 12:33 PM EST [facility] Hct 34.4 34.0 - 45.0 % 03/17/2025 12:33 PM EST [facility] MCV 86.9 80.0 - 100.0 fL 03/17/2025 12:33 PM EST [facility] MCH 29.3 26.0 - 34.0 pg 03/17/2025 12:33 PM EST [facility] MCHC 33.7 30.7 - 35.5 g/dL 03/17/2025 12:33 PM EST [facility] RDW 13.1 <=14.9 % 03/17/2025 12:33 PM EST [facility] Platelet 269 155 - 369 x10(3)/mc L 03/17/2025 12:33 PM EST [facility] MPV 8.4(L) 8.8 - 12.5 fL 03/17/2025 12:33 PM EST [facility] Segs 72 % 03/17/2025 [...] 12:33 PM EST [facility] [place] # 0.6 0.3 - 0.9 x10(3)/mc L [...] 12:33 PM EST [facility] [place] Cell Occasional 03/17/2025 12:33 PM EST [facility] Blood VENOUS STRUCTURE / Unknown Port / Unknown 03/17/2025 11:52 AM EST 03/17/2025 11:57 AM EST us Maxx Khan MD HEMATOLOGY ORDERABLES Final Re sult [facility] 1 [facility] , [place] [address] [place] [address] [place] [address] documented in this encounter Visit Diagnoses Diagnosis Invasive ductal carcinoma of breast, female, right (HCC)- Primary documented in this encounter Care Teams Warehousing Technician Relationship Specialty Start Date End Date Idania Cobb, RN Oncology Nurse Navigator 01/22/25 Maxx Khan MD [address] [place] [address] Medical Oncologist Internal Medicine-Medical Oncology 02/18/25 Obdulia Monet, ANTHONY Registered Nurse 02/18/25 Bhavesh Poole MD [address] [place] [address] Radiation Oncologist Radiology-Radiation Oncology 02/24/25 Elena Buck, Clerical Staff Financial Counselor 02/27/25 documented as of this encounter
--- OUTSIDE RECORDS SUMMARY | 2025-04-22 08:26 | XMS_ITS | Encounter Summary ---
Author Organization [place] [address] Care Team Providers Care Social Media Project Manager Name Role Phone Idania Cobb RN Unavailable Maxx Khan MD Unavailable [phone] Obdulia Mazariegos RN Unavailable Unavailable Bhavesh Poole MD Unavailable Elena Buck Clerical Staff Unavailable Reason for Visit * Reason Comments Pharmacy Specialty Management Perjeta Encounter Details Date Type Department Care Team (Latest Contact Info) Description 04/14/2025 Specialty Pharmacy [facility] [address] [phone] Maxx Khan MD [address] [place], [place] [phone] Pharmacy Specialty Management (Perjeta ) Social History [...] Raphael CPhT - 04/14/2025 10:00 AM EST [facility] Called [facility] to schedule delivery of Perjeta (420mg) for infusion. Delivery date: 04.29 Infusion appt date: 05.04 Infusion appt location: [place] Order [id number] documented in this encounter Plan of Treatment Upcoming Encounters Date Type Department Care Team (Late st Contact Info) Description 05/01/2025 12:30 PM EST Appointment [facility] [place] [address] Maxx Khan MD 1 [facility] [place] [address] 05/04/2025 8:15 AM EST Appointment [facility] [place] [address] 05/04/2025 8:45 AM EST Appointment [facility] [place] [address] Maxx Khan MD [address] [facility] [place] [address] 05/04/2025 9:00 AM EST Appointment [facility] [place]N [place], [place] [id number] 05/28/2025 10:30 AM EST Appointment [facility] One [facility] [place] [address] Maxx Khna MD [address] [facility] [place] [address] 06/26/2025 10:15 AM EST Appointment [facility] RAD ONC [place], [place] [phone] Consuelo Ugarte APRN [address] [facility] [place] [address] documented as of this encounter Goals Goal Patient Goal Type Associated Problems Recent Progress Patient-Stated? Author Breast Health Breast Health Yenni Funk, RN Note: Patient acknowledges understanding of new diagnosis, plan of care, available resources and how to contact Nurse Navigator with any future questions or concerns. documented as of this encounter Visit Diagnoses Not on filedocumented in this encounter Care Teams Social Media Project Manager Relationship Specialty Start Date End Date Idania Cobb, RN Oncology Nurse Navigator 01/22/25 Maxx Khan MD 1 [place], [place] [phone] Medical Oncologist Internal Medicine-Medical Oncology 02/18/25 Obdulia Mazariegos, ANTHONY Registered Nurse 02/18/25 Bhavesh Poole MD 1 [place] [address] Radiation Oncologist Radiology-Radiation Oncology 02/24/25 Elena Buck, Clerical Staff Financial Counselor 02/27/25 documented as of this encounter
--- OUTSIDE RECORDS SUMMARY | 2025-04-22 08:26 | XMS_ITS | Encounter Summary ---
Author Organization [place] [address] Care Team Providers Care Family Health Nurse Practitioner Name Role Phone Idania Cobb RN Unavailable Maxx Khan MD Unavailable [phone] Obdulia Mazariegos RN Unavailable Unavailable Bhavesh Poole MD Unavailable Elena Buck Clerical Staff Unavailable Encounter Details Date Type Department Care Team (Late st Contact Info) Description 03/05/2025 Orders Only [facility] [place] [address] Esperanza Monsalve APRN [address] [facility] [place] [address] Invasive ductal carcinoma of breast, [...] PM EST Appointment [facility] [address] [place] [phone] Maxx Khan MD [address] [facility] [address] [place] [id number] 05/04/2025 8:15 AM EST Appointment [facility] [place], [place] [id number] 05/04/2025 8:45 AM EST Appointment [facility] [place] [address] Maxx Khan MD [address] [facility] [address] [place], [place] [address]17 05/04/2025 9:00 AM EST Appointment [facility]N [place], [place] [phone] 05/28/2025 10:30 AM EST Appointment [facility] One [facility] [address] Maxx Khan MD 1 [facility] [place] [address] 06/26/2025 10:15 AM EST Appointment [facility] RAD ONC [place], [place] [id number] Consuelo Ugarte APRN [address] [facility] [address] [place], [place] 25[address]17 documented as of this encounter Goals Goal Patient Goal Type Associated Problems Recent Progress Patient-Stated? Author [facility] Yenni Funk, RN Note: Patient acknowledges understanding of new diagnosis, plan of care, available resources and how to contact Nurse Navigator with any future questions or concerns. documented as of this encounter Results * (ABNORMAL) COMPREHENSIVE METABOLIC PANEL (03/09/2025 1:32 PM EST) Sodium 139 136 - 145 mmol/L 03/09/2025 1:51 PM EST [facility] Potassium 4.2 3.5 - 5.0 mmol/L 03/09/2025 1:51 PM EST [facility] Chloride 106 98 - 107 mmol/L 03/09/2025 1:51 PM EST [facility] Total CO2 21(L) 22 - 29 mmol/L 03/09/2025 1:51 PM [facility] Anion Gap 12 7 - 16 mmol/L 03/09/2025 1:51 PM [facility] Calcium 8.9 8.8 - 10.4 mg/dL 03/09/2025 1:51 PM [facility] Glucose Lvl 122(H) 70 - 99 mg/dL 03/09/2025 1:51 PM EST [facility] BUN 20 8 - 23 mg/dL [...] recommended by the National Kidney Foundation - [place] Society of Nephrology Task Force. Blood VENOUS STRUCTURE / Unknown Port / Unknown 03/09/2025 1:32 PM EST 03/09/2025 1:32 PM EST us Esperanza Monsalve HOG COUNTER CHEMISTRY ORDERABLES Final Res ult [address] [address] * (ABNORMAL) CBC WITH DIFF [...] 3:28 PM EST [facility] [place] # 0.2(L) 0.3 - 0.9 x10(3)/mc L [...] 03/09/2025 1:32 PM EST us Esperanza Monsalve HOG COUNTER HEMATOLOGY ORDERABLES Final Re sult [facility] 1 [facility] , [place] [address] documented in this encounter Visit Diagnoses Diagnosis Invasive ductal carcinoma of breast, female, right (HCC)- Primary documented in this encounter Care Teams Family Health Nurse Practitioner Relationship Specialty Start Date End Date Idania Cobb RN Oncology Nurse Navigator 01/22/25 Maxx Khan MD 1 [facility] [place] [address] Medical Oncologist Internal Medicine-Medical Oncology 02/18/25 Obdulia Mazariegos, RN Registered Nurse 02/18/25 Bhavesh Poole MD 1 [place] [address] Radiation Oncologist Radiology-Radiation Oncology 02/24/25 Elena Buck, Clerical Staff Financial Counselor 02/27/25 documented as of this encounter
--- OUTSIDE RECORDS SUMMARY | 2025-04-22 08:26 | XMS_ITS | Encounter Summary ---
Author Organization [place] [address] Care Team Providers Care Hockey Player Name Role Phone Idania Cobb RN Unavailable Maxx Khan MD Unavailable [phone] Obdulia Mazariegos RN Unavailable Unavailable Bhavesh Poole MD Unavailable Elena Buck Clerical Staff Unavailable Francisca Oconnor RN Unavailable Unava ilable Reason for Visit * Reason Onset Date Comments Reschedule 03/02/2025 Radiation Encounter Details Date Type Department Care Team (Late st Contact Info) Description 03/02/2025 Telephone [facility] Care Medical Oncology [place] [phone] Maxx Khan MD [address] [place] [address] [phone] Reschedule (Radiation ) Social History Tobacco Use [...] Miscellaneous Notes * Telephone Encounter - Roxy Almonte, Clerical Staff - 03/02/2025 12:59 PM EST [...] Appointment [facility] [place] [address] Maxx Khan MD [address] [place] [address] [place] [address] 05/04/2025 8:15 AM EST Appointment [facility] [place], [place] [id number] 05/04/2025 8:45 AM EST Appointment [facility] On[facility] [place], [place] [phone] Maxx Khan MD [address] [place] [address] [address] [place], [place] 6[address] 05/04/2025 9:00 AM EST Appointment [place] [address] 05/28/2025 10:30 AM EST Appointment [facility] [place] [address] Maxx Khan MD [address] [place] [address] [place] [address] 06/26/2025 10:15 AM EST Appointment [facility], [place] 101[address]17 Consuelo Ugarte APRN [address] [facility] [address] [place] [phone] documented as of this encounter Goals Goal Patient Goal Type Associated Problems Recent Progress Patient-Stated? Author Breast Health Breast Health Yenni Funk RN Note: Patient acknowledges understanding of new diagnosis, plan of care, available resources and how to contact Nurse Navigator with any future questions or concerns. documented as of this encounter Visit Diagnoses Not on filedocumented in this encounter Care Teams Hockey Player Relationship Specialty Start Date End Date Idania Cobb RN Oncology Nurse Navigator 01/22/25 Maxx Khan MD [address] [facility] [address] [place], [place] [phone] Medical Oncologist Internal Medicine-Medical Oncology 02/18/25 Obdulia Mazariegos, ANTHONY Registered Nurse 02/18/25 Bhavesh Poole MD 1 [place], [place] [phone] Radiation Oncologist Radiology-Radiation Oncology 02/24/25 Elena Buck, Clerical Staff Financial Counselor 02/27/25 Francisca Oconnor, ANTHONY Registered Nurse Infusion Therapy 03/02/25 03/02/25 documented as of this encounter
--- OUTSIDE RECORDS SUMMARY | 2025-04-22 08:26 | XMS_ITS | Encounter Summary ---
Author Organization [place] [address] Care Team Providers Care Maintenance Representative Name Role Phone Idania Cobb RN Unavailable Maxx Khan MD Unavailable [phone] Obdulia Mazariegos RN Unavailable Unavailable Bhavesh Poole MD Unavailable Elena Buck Clerical Staff Unavailable Encounter Details Date Type Department Care Team (Late st Contact Info) Description 03/17/2025 Orders Only [facility] Cancer Care [facility] [place] [address] Bhavesh Poole MD [address] [place], [place] [id number] Social History Tobacco Use Types Packs/Day Years [...] 05/01/2025 12:30 PM EST Appointment [facility] [place] [id number] Maxx Khan MD [address] [place] [address] [facility] [place] [address] 05/04/2025 8:15 AM EST Appointment [facility] [place], [place] [id number] 05/04/2025 8:45 AM EST [facility]ointment [facility] [place] [address] Maxx Khan MD 1 [facility] [place] [address] 05/04/2025 9:00 AM EST Appointment [facility]N [place], [place] [id number] 05/28/2025 10:30 AM EST Appointment [facility] [address] [place], [place] [id number] Maxx Khan MD [address] [facility] [address] [place] [address] 06/26/2025 10:15 AM EST Appointment [facility] RAD ONC [place], [place] [id number] Consuelo Ugarte APRN 1 [facility] [place] [address] documented as of this encounter Goals Goal [...] ARIA Dosage Given to Date in Gy [id number] ARIA Session Dosage Given in Gy [id number] ARIA Reference Point ID [id number] ARIA Dosage Given to Date in Gy [id number] ARIA Session Dosage Given in Gy [id number] ARIA Reference Point ID [id number] ARIA Dosage Given to Date in Gy [id number] ARIA Session Dosage Given in Gy [id number] ARIA Reference Point ID [id number] ARIA [...] ORDERABLES Fi nal Result Performing Organization Address City/State/[facility] Co de Phone Number ARI 1 [facility] [place] [address] documented in this encounter Visit Diagnoses Not on filedocumented in this encounter Care Teams Maintenance Representative Relationship Specialty Start Date End Date Idania Cobb RN Oncology Nurse Navigator 01/22/25 Maxx Khan MD [address] [facility] [place] [address] Medical Oncologist Internal Medicine-Medical Oncology 02/18/25 Obdulia Mazariegos, ANTHONY Registered Nurse 02/18/25 Bhavesh Poole MD 1 [place] [address] Radiation Oncologist Radiology-Radiation Oncology 02/24/25 Elena Buck, Clerical Staff Financial Counselor 02/27/25 documented as of this encounter
--- OUTSIDE RECORDS SUMMARY | 2025-04-22 08:26 | XMS_ITS | Encounter Summary ---
Author Organization [place] [address] Care Team Providers Care Watershed Program Manager Name Role Phone Idania Cobb RN Unavailable Maxx Khan MD Unavailable [phone] Obdulia Mazariegos RN Unavailable Unavailable Bhavesh Poole MD Unavailable Elena Buck Clerical Staff Unavailable Francisca Oconnor RN Unavailable Unava ilable Encounter Details Date Type Department Care Team (Late st Contact Info) Description 03/02/2025 Orders [place] [address] Tc Hickey, PharmD Social History Tobacco Use [...] Appointment [facility] [place] [address] Maxx Khan MD [address] [place] [address] 05/04/2025 8:15 AM EST Appointment [facility] [place], [place] [id number] 05/04/2025 8:45 AM EST [facility]ointment [facility] [place] [address] Maxx Khan MD 1 [facility] [place] [address] 05/04/2025 9:00 AM EST Appointment [facility] [place], [place] [id number] 05/28/2025 10:30 AM EST Appointment [facility] [place] [address] Maxx Khan MD [address] [place] [address] [place] [address] 06/26/2025 10:15 AM EST Appointment [place] [address] Consuelo Ugarte APRN [address] [place] [address] [place] [address] documented as of this encounter Goals Goal Patient Goal Type Associated Problems Recent Progress Patient-Stated? Author Breast Health Breast Health Yenni Funk, RN Note: Patient acknowledges understanding of new diagnosis, plan of care, available resources and how to contact Nurse Navigator with any future questions or concerns. documented as of this encounter Visit Diagnoses Not on filedocumented in this encounter Care Teams Watershed Program Manager Relationship Specialty Start Date End Date Idania Cobb RN Oncology Nurse Navigator 01/22/25 Maxx Khan MD [address] [facility] [place] [address] Medical Oncologist Internal Medicine-Medical Oncology 02/18/25 Obdulia Mazariegos, RN Registered Nurse 02/18/25 Bhavesh Poole MD [address] [place] [address] Radiation Oncologist Radiology-Radiation Oncology 02/24/25 Elena Buck, Clerical Staff Financial Counselor 02/27/25 Francisca Oconnor, RN Registered Nurse Infusion Therapy 03/02/25 03/02/25 documented as of this encounter
--- OUTSIDE RECORDS SUMMARY | 2025-04-22 08:26 | XMS_ITS | Encounter Summary ---
Author Organization [place] [address] Care Team Providers Care Research Engineer Name Role Phone Idania Cobb RN Unavailable Maxx Khan MD Unavailable [phone] Obdulia Mazariegos RN Unavailable Unavailable Bhavesh Poole MD Unavailable Elena Buck Clerical Staff Unavailable Ankush Jean RN Unavailable Unavailable Reason for Visit * Reason Comments Pharmacy Specialty Management Perjeta 42 0mg Encounter Details Date Type Department Care Team (Latest Contact Info) Description 03/03/2025 Specialty Pharmacy [facility] [address] [place] [address] Maxx Khan MD [address] [place] [address] Pharmacy Specialty Management (Perjeta 420mg) Social [...] Raphael CPhT - 03/03/2025 10:55 AM EST [facility] Called [facility] to schedule delivery of Perjeta (420mg) for infusion. Delivery date: rep stated there is already a shipment in place to arrive 03/11 and this is NOT for replacement as this is coming from [facility] with patients name on it, Perjeta 840mg. This shipment will be for the next 2 maintenance doses. Infusion appt date: 03/23 & est 04/20 Infusion appt location: [place] * Cristal Hahn CPhT - 03/03/2025 10:55 AM EST [facility] Received delivery of Perjeta (840mg) at [facility]. Placed in fridged to be couriered to [place] infusion center prior to next appt on 03/23 and TBD. Invoice is uploaded to media in encounter. Patient Dose: Perjeta (420mg) MFG Lot: [id number] [facility] [place] Expiration: 10/2026 2 doses in encounter. * Cristal Hahn CPhT - 03/03/2025 10:55 AM EST [facility] 1 dose Perjeta was sent via kindergartner on 03/19 to [place] * Peyton Raphael CPhT - 03/03/2025 10:55 AM EST [facility] medication used, pushed through charge for a renay. Dose used:(420mg) Remaining treatments: 1 Order#: [id number] Verified MFG Lot: Yes Next dos 04/13 * Cristal Hahn CPhT - 03/03/2025 10:55 AM EST [facility] Perjeta was sent via kindergartner on 04/07 to [place] * Peyton Raphael CPhT - 03/03/2025 10:55 AM EST [facility] Indigent medication used, pushed through charge for a renay. Dose used:(420mg) Remaining treatments: 0 Order#: [id number] Verified MFG Lot: Yes documented in this encounter Plan of Treatment Upcoming Encounters Date Type Department Care Team (Late st Contact Info) Description 05/01/2025 12:30 PM EST Appointment [facility] [place] [address] Maxx Khan MD [address] [place] [address] [address] [place] [address] 05/04/2025 8:15 AM EST Appointment [facility] [place] [id number] 05/04/2025 8:45 AM EST Appointment [facility] [place] [address] Maxx Khan MD [address] [place] [address] [address] [place] [address] 05/04/2025 9:00 AM EST Appointment [facility] [place] [address] 05/28/2025 10:30 AM EST Appointment [facility] [place] [address] Maxx Khan MD [address] [place] [address] [address] [place] [address] 06/26/2025 10:15 AM EST Appointment [facility] RAD ONC [place], [place] [id number] Consuelo Ugarte APRN [address] [facility] [place] [address] documented as of this encounter Goals Goal Patient Goal Type Associated Problems Recent Progress Patient-Stated? Author Breast Health Breast Health Yenni Funk, ANTHONY Note: Patient acknowledges understanding of new diagnosis, plan of care, available resources and how to contact Nurse Navigator with any future questions or concerns. documented as of this encounter Visit Diagnoses Not on filedocumented in this encounter Care Teams Research Engineer Relationship Specialty Start Date End Date Idania Cobb RN Oncology Nurse Navigator 01/22/25 Maxx Khan MD [address] [facility] [place] [place] [address] Medical Oncologist Internal Medicine-Medical Oncology 02/18/25 Obdulia Mazariegos, RN Registered Nurse 02/18/25 Bhavesh Poole MD 1 [place] [address] Radiation Oncologist Radiology-Radiation Oncology 02/24/25 Elena Buck, Clerical Staff Financial Counselor 02/27/25 Ankush Jean, ANTHONY Registered Nurse Infusion Therapy 03/23/25 03/23/25 documented as of this encounter
--- OUTSIDE RECORDS SUMMARY | 2025-04-22 08:26 | XMS_ITS | Encounter Summary ---
Author Organization [facility] Address [address] [place] [address] Care Team Providers Care Soap Boiler Name Role Phone Idania Cobb RN Unavailable Maxx Khan MD Unavailable [phone] Obdulia Mazariegos RN Unavailable Unavailable Bhavesh Poole MD Unavailable Elena Buck Clerical Staff Unavailable Reason for Visit * Reason Onset Date Comments Follow-up 03/13/2025 Port placement f ollow up Encounter Details Date Type Department Care Team (Late st Contact Info) Description 03/13/2025 Telephone [facility] [place] [address] [place], [place] [id number] Mary Saleh, Clerical Staff Follow-up (Port placement [...] PM EST Appointment [facility] [place] [address] Maxx Khan MD [address] [facility] [place] [address] 05/04/2025 8:15 AM EST Appointment [place] [address] 05/04/2025 8:45 AM EST Appointment [facility] [place] [address] Maxx Khan MD [address] [place] [address] [place] [address] 05/04/2025 9:00 AM EST Appointment [facility]N [place], [place] [id number] 05/28/2025 10:30 AM EST Appointment [facility] [place] [address] Maxx Khan MD [address] [place] [address] [address] [place] [address] 06/26/2025 10:15 AM EST Appointment [facility] [place] [address] Consuelo Ugarte APRN [address] [facility] [place] [address] documented as of this encounter Goals Goal Patient Goal Type Associated Problems Recent Progress Patient-Stated? Author Breast Health Breast Health Yenni Funk, RN Note: Patient acknowledges understanding of new diagnosis, plan of care, available resources and how to contact Nurse Navigator with any future questions or concerns. documented as of this encounter Visit Diagnoses Not on filedocumented in this encounter Care Teams Soap Boiler Relationship Specialty Start Date End Date Idania Cobb RN Oncology Nurse Navigator 01/22/25 Maxx Khan MD 1 [place] [address] Medical Oncologist Internal Medicine-Medical Oncology 02/18/25 Obdulia Mazariegos RN Registered Nurse 02/18/25 Bhavesh Poole MD 1 [place] [address] Radiation Oncologist Radiology-Radiation Oncology 02/24/25 Elena Buck, Clerical Staff Financial Counselor 02/27/25 documented as of this encounter
--- OUTSIDE RECORDS SUMMARY | 2025-04-22 08:26 | XMS_ITS | Encounter Summary ---
Author Organization [place] [address] Care Team Providers Care Rn Complex Care Name Role Phone Idania Cobb RN Unavailable Maxx Khan MD Unavailable [phone] Obdulia Mazariegos RN Unavailable Unavailable Bhavesh Poole MD Unavailable Elena Buck Clerical Staff Unavailable Reason for Visit * Reason Onset Date Comments Integrative Oncology Referral 03/24/2025 wi g fitting Encounter Details Date Type Department Care Team (Late st Contact Info) Description 03/24/2025 Telephone [place] [address] Rossana Vergara, Clerical Staff Integrative [...] Clerical Staff - 03/24/2025 3:44 PM EST iTaggit message sent re: wig fitting. documented in this encounter Plan of Treatment Upcoming Encounters Date Type Department Care Team (Late st Contact Info) Description 05/01/2025 12:30 PM EST Appointment [facility] [place] [address] Maxx Khan MD 1 [facility] [place] [address] 05/04/2025 8:15 AM EST Appointment [facility] [place], [place] [id number] 05/04/2025 8:45 AM EST Appointment [facility] [place] [address] Maxx Khan MD [address] [place] [address] [place] [address] 05/04/2025 9:00 AM EST Appointment [facility] [place], [place] [id number] 05/28/2025 10:30 AM EST Appointment [facility] [place] [address] Maxx Khan MD [address] [facility] [place] [address] 06/26/2025 10:15 AM EST Appointment [facility] [place] [address] Consuelo Ugarte APRN [address] [facility] [place] [address] documented as of this encounter Goals Goal Patient Goal Type Associated Problems Recent Progress Patient-Stated? Author Breast Health Breast Health Yenni Funk, ANTHONY Note: Patient acknowledges understanding of new diagnosis, plan of care, available resources and how to contact Nurse Navigator with any future questions or concerns. documented as of this encounter Visit Diagnoses Not on filedocumented in this encounter Care Teams Rn Complex Care Relationship Specialty Start Date End Date Idania Cobb RN Oncology Nurse Navigator 01/22/25 Maxx Khan MD 1 [place] [address] Medical Oncologist Internal Medicine-Medical Oncology 02/18/25 Obdulia Mazariegos, RN Registered Nurse 02/18/25 Bhavesh Poole MD 1 [place] [address] Radiation Oncologist Radiology-Radiation Oncology 02/24/25 Elena Buck, Clerical Staff Financial Counselor 02/27/25 documented as of this encounter
--- OUTSIDE RECORDS SUMMARY | 2025-04-22 08:26 | XMS_ITS | Encounter Summary ---
Author Organization [place] [address] Care Team Providers Care Material Manager Name Role Phone Idania Cobb RN Unavailable Maxx Khan MD Unavailable [phone] Obdulia Mazariegos RN Unavailable Unavailable Bhavesh Poole MD Unavailable Elena Buck Clerical Staff Unavailable Francisca Oconnor RN Unavailable Unava ilable Reason for Visit * Reason Comments Oncology Nurse Navigation F2F Encounter Details Date Type Department Care Team (Late st Contact Info) Description 03/02/2025 Patient Outreach [facility] [place] [address] Idania Cobb, RN Oncology Nurse [...] (Pt lives [place] away from [place] Treatment No concerns noted (C1D1) Intervention: Onc [...] PM EST Appointment [place] [address] Maxx Khan MD [address] [place] [address] [place] [address] 05/04/2025 8:15 AM EST Appointment [place] [address] 05/04/2025 8:45 AM EST Appointment [facility] [place] [address] Maxx Khan MD [address] [place] [address] [address] [place] [id number] 05/04/2025 9:00 AM EST Appointment [facility] [place] [address] 05/28/2025 10:30 AM EST Appointment [facility] [address] [place] [id number] Maxx Khan MD [address] [place] [address] [place] [address] 06/26/2025 10:15 AM EST Appointment [facility] RAD ONC [place], [place] [id number] Consuelo Ugarte APRN [address] [facility] [address] [place] [id number] documented as of this encounter Goals Goal Patient Goal Type Associated Problems Recent Progress Patient-Stated? Author Breast [facility] Breast [facility] Yenni Funk RN Note: Patient acknowledges understanding of new diagnosis, plan of care, available resources and how to contact Nurse Navigator with any future questions or concerns. documented as of this encounter Visit Diagnoses Not on filedocumented in this encounter Care Teams Material Manager Relationship Specialty Start Date End Date Idania Cobb RN Oncology Nurse Navigator 01/22/25 Maxx Khan MD [address] [facility] [place] [address] Medical Oncologist Internal Medicine-Medical Oncology 02/18/25 Obdulia Mazariegos, ANTHONY Registered Nurse 02/18/25 Bhavesh Poole MD 1 [place] [address] Radiation Oncologist Radiology-Radiation Oncology 02/24/25 Elena Buck, Clerical Staff Financial Counselor 02/27/25 Francisca Oconnor, ANTHONY Registered Nurse Infusion Therapy 03/02/25 03/02/25 documented as of this encounter
--- OUTSIDE RECORDS SUMMARY | 2025-04-22 08:26 | XMS_ITS | Encounter Summary ---
Author Organization [place] [address] Care Team Providers Care Virtualization Consultant Name Role Phone Idania Cobb RN Unavailable Maxx Khan MD Unavailable [phone] Obdulia Monet RN Unavailable Unavailable Bhavesh Poole MD Unavailable Elena Buck Clerical Staff Unavailable Reason for Visit * Reason Onset Date Comments Symptom Call 04/06/2025 Bladder infectio n symptoms per pt, pressure, started this past Sunday. Encounter Details Date Type Department Care Team (Late st Contact Info) Description 04/06/2025 Telephone [facility] [place] [address] Maxx Khan MD [address] [place], [place] [id number] Symptom Call (Bladder infection symptoms per pt, [...] Patient did not get urine collected yesterday. Trulia message sent to discuss about having drawn. [...] the Patient seen at:[facility] Preferred call back number:[phone] documented in this encounter Plan of Treatment Upcoming Encounters Date Type Department Care Team (Late st Contact Info) Description 05/01/2025 12:30 PM EST Appointment [facility] CT [place] [phone] Maxx Khan MD [address] [place] [address] [place] [address] 05/04/2025 8:15 AM EST Appointment [facility] [place] [address] 05/04/2025 8:45 AM EST Appointment [facility] [place] [address] Maxx Khan MD [address] [place] [address] [address] [place] [facility] 05/04/2025 9:00 AM EST Appointment [place] [address] 05/28/2025 10:30 AM EST Appointment [facility] [place] [address] Maxx Khan MD [address] [place] [address] [place] [address] 06/26/2025 10:15 AM EST Appointment [facility] RAD ONC [place], [place] [id number] Consuelo Ugarte APRN 1 [facility] [address] [place] [phone] documented as of this encounter Goals Goal [...] Primary documented in this encounter Care Teams Virtualization Consultant Relationship Specialty Start Date End Date Idania Cobb RN Oncology Nurse Navigator 01/22/25 Maxx Khan MD 1 [facility] [place] [address] Medical Oncologist Internal Medicine-Medical Oncology 02/18/25 Obdulia Monet, ANTHONY Registered Nurse 02/18/25 Bhavesh Poole MD 1 [place] [address] Radiation Oncologist Radiology-Radiation Oncology 02/24/25 Elena Buck, Clerical Staff Financial Counselor 02/27/25 documented as of this encounter
--- OUTSIDE RECORDS SUMMARY | 2025-04-22 08:26 | XMS_ITS | Encounter Summary ---
Author Organization [place] [address] Care Team Providers Care Milk Route Supervisor Name Role Phone Idania Cobb RN Unavailable Maxx Khan MD Unavailable [phone] Obdulia Mazariegos RN Unavailable Unavailable Bhavesh Poole MD Unavailable Elena Buck Clerical Staff Unavailable Encounter Details Date Type Department Care Team (Late st Contact Info) Description 03/09/2025 Telephone [facility] [place] [address] Yusar Mcdaniels RN Social History Tobacco Use Types [...] - 03/09/2025 2:21 PM EST Rosario Man [id number], 1960 03/09/2025 Test Name/Result: WBC 1.0/Neut 0.1 Time: 142 Caller/Bridge Rigger: Fanta gomez/Yusra CRUZ Action Taken:SHARRI and Obdulia RN notified (pt seen 03/09 by SHARRI for MTP) Time: 142 Notified Physician/Physician Designee: SHARRI Katz and Obdulia RN notified in person. documented in this encounter Plan of Treatment Upcoming Encounters Date Type Department Care Team (Late st Contact Info) Description 05/01/2025 12:30 PM EST Appointment [facility] [place] [address] Maxx Khan MD [address] [place] [address] [place] [address] 05/04/2025 8:15 AM EST Appointment [place] [address] 05/04/2025 8:45 AM EST Appointment [facility] [place] [id number] Maxx Khan MD [address] [place] [address] [place] [address] 05/04/2025 9:00 AM EST Appointment [facility] [place], [place] [id number] 05/28/2025 10:30 AM EST Appointment [facility] [place] [address] Maxx Khan MD [address] [place] [address] [place] [address] 06/26/2025 10:15 AM EST Appointment [facility] [address] Consuelo Ugarte APRN [address] [place] [address] [place] [address] documented as of this encounter Goals Goal Patient Goal Type Associated Problems Recent Progress Patient-Stated? Author Breast Health Breast Health Yenni Funk, RN Note: Patient acknowledges understanding of new diagnosis, plan of care, available resources and how to contact Nurse Navigator with any future questions or concerns. documented as of this encounter Visit Diagnoses Not on filedocumented in this encounter Care Teams Milk Route Supervisor Relationship Specialty Start Date End Date Idania Cobb RN Oncology Nurse Navigator 01/22/25 Maxx Khan MD 1 [facility] [place] [address] Medical Oncologist Internal Medicine-Medical Oncology 02/18/25 Obdulia Mazariegos, ANTHONY Registered Nurse 02/18/25 Bhavesh Poole MD 1 [place] [address] Radiation Oncologist Radiology-Radiation Oncology 02/24/25 Elena Buck, Clerical Staff Financial Counselor 02/27/25 documented as of this encounter
--- OUTSIDE RECORDS SUMMARY | 2025-04-22 08:27 | XMS_ITS | Clinical Summary ---
Author Organization [facility] Address [address] [place] [address] Phone Care Team Providers Care Aircraft Armorer Name Role Phone Idania Cobb RN Unavailable Maxx Khan MD Unavailable [phone] Obdulia Mazariegos RN Unavailable Unavailable Bhavesh [...] daily. Active nalOXone (NARCAN) 4 mg/actuation Nasl [place], Non-AerosolIndic ations:Invasive ductal carcinoma of right breast, stage 4 (HCC) 0.1 mL by Nasal route as needed for Opioid Reversal. [place] the contents of one device (0.1mL) into [...] 04/08/20 25 Active oxymetazoline 0.025 % Nasl [place], Non-AerosolIndic ations:Nosebleed 1 [place] by Nasal route 2 times daily as [...] Discontin ued(Reord er) oxymetazoline 0.025 % Nasl [place], Non-AerosolIndic ations:Nosebleed 1 [place] by Nasal route 2 times daily as needed. 30 mL ML 03/23/20 25 025 Discontin ued(Reord er) oxymetazoline 0.025 % Nasl [place], Non-AerosolIndic ations:Nosebleed 1 [place] by Nasal route 2 times daily as needed. 30 mL 03/24/20 25 025 Discontin ued(Reord er) Active Problems Problem Noted Date Diagnosed Date Secondary malignant neoplasm of bone 03/01/2025 Invasive ductal carcinoma of breast, female, rig ht 02/06/2025 Cancer Staging:Clinical stage from 01/20/2025:Stage IV(cT3, cN1(f), cM1, G3, ER+, NE+, HER2+) - Signed by Tresa Jacinto DO on 02/17/2025 Invasive ductal carcinoma of breast, female, lef t 02/06/2025 Cancer Staging:Clinical stage from 01/20/2025:Stage IA(cT1c, cN0, cM0, G2, ER+, NE+, HER2-) - Signed by Tresa Jacinto DO [...] non functioning; unable to retract records in [employer] to review Resolved Problems Problem Noted Date Diagnosed Date Resolved Date Bilateral breast cancer 01/22/202501/28 Overview (01/22/2025): melita IDC and positive Right Axillary node Encounters Date Type Department Care Team Description 04/20/2025 Telephone [facility] [place] [address] Maxx Khan MD Other (Requesting to speak to RN ) 04/14/2025 Specialty Pharmacy [facility] [address] [place] [address] Maxx Khan MD Pharmacy Specialty Management ([facility] ) 04/13/2025 10:30 AM EST - 04/13/2025 11:59 PM EST Hospital Encounter [facility] [place], [place] [id number] Ankush Jean RN Invasive ductal carcinoma of breast, female, right (HCC) (Primary Dx) Discharge Disposition: Home or Self Care 04/13/2025 10:04 AM EST - 04/13/2025 10:29 AM EST Hospital Encounter [place] [address] Maxx Khan MD Invasive ductal carcinoma of right breast, stage 4 (HCC) (Primary Dx); Encounter for chemotherapy management; Encounter for antineoplastic chemotherapy; Nosebleed; Invasive ductal carcinoma of breast, female, right (HCC) Discharge Disposition: Home or Self Care 04/13/2025 9:45 AM EST - 04/13/2025 10:03 AM EST Hospital Encounter [facility] [place] [phone] Invasive ductal carcinoma of breast, female, right (HCC) (Primary Dx) Discharge Disposition: Home or Self Care 04/06/2025 Telephone [place] [address] Maxx Khan MD Symptom Call (Bladder infection symptoms per pt, pressure, started this past Sunday.) 03/24/2025 Telephone [place] [address] Rossana Vergara, Clerical Staff Integrative Oncology Referral (wig fitting) 03/24/2025 Telephone [facility] [place] [phone] Maxx Khan MD Medication Management (oxymetazoline 0.025 % Nasl [place], Non-Aerosol) 03/23/2025 9:00 AM EST - 03/23/2025 11:59 PM EST Hospital Encounter [facility] [place] [address] Ankush Jean RN Invasive ductal carcinoma of breast, female, right (HCC) (Primary Dx) Discharge Disposition: Home or Self Care 03/23/2025 8:25 AM EST - 03/23/2025 8:59 AM EST Hospital Encounter [facility] [place] [phone] Maxx Khan MD Invasive ductal carcinoma of right breast, stage 4 (HCC) (Primary Dx); Encounter for chemotherapy management; Encounter for antineoplastic chemotherapy; Encounter for monitoring cardiotoxic drug therapy; Nosebleed; Chemotherapy induced diarrhea Discharge Disposition: Home or Self Care 03/23/2025 8:15 AM EST - 03/23/2025 8:24 AM EST Hospital Encounter [place] [address] Invasive ductal carcinoma of breast, female, right (HCC) (Primary Dx) Discharge Disposition: Home or Self Care 03/23/2025 Telephone [facility] [place] [address] Maxx Khan MD Schedule Appointment (ECHO ) 03/20/2025 1:42 PM EST - 03/20/2025 11:59 PM EST Hospital Encounter [place] [address] Bhavesh Poole MD Secondary malignant neoplasm of bone (HCC) (Primary Dx) Discharge Disposition: Home or Self Care 03/20/2025 Orders Only [facility] Cancer Care [facility] [place] [address] Bhavesh Poole MD 03/20/2025 Orders [place] [address] Tc Hickey, PharmD 03/19/2025 1:43 PM EST - 03/19/2025 11:59 PM EST Hospital Encounter [place] [address] Discharge Disposition: Home or Self Care 03/19/2025 Orders Only [facility] Cancer Care [facility] [address] [place] [address] Bhavesh Poole MD 03/18/2025 1:26 PM EST - 03/18/2025 11:59 PM EST Hospital Encounter [place] [address] Discharge Disposition: Home or Self Care 03/18/2025 Results [facility] [place] [address] Krumme, Esperanza, PRE ALGEBRA TEACHER URINALYSIS REFLEX, EXTRA DELGADO URINE CX, URINE CULTURE (NO STAIN) 03/18/2025 Orders Only [facility] Cancer Care [facility] [place] [address] Bhavesh Poole MD 03/17/2025 11:59 AM EST - 03/17/2025 11:59 PM EST Hospital Encounter [place] [address] Discharge Disposition: Home or Self Care 03/17/2025 11:42 AM EST - 03/17/2025 11:58 AM EST Hospital Encounter [place] [address] Invasive ductal carcinoma of breast, female, left (HCC) (Primary Dx); Invasive ductal carcinoma of breast, female, right (HCC) Discharge Disposition: Home or Self Care 03/17/2025 Orders Only [facility] Cancer Care [facility] [place] [address] Bhavesh Poole MD 03/16/2025 11:11 AM EST - 03/16/2025 11:59 PM EST Hospital Encounter [place] [address] Discharge Disposition: Home or Self Care 03/16/2025 10:43 AM EST - 03/16/2025 11:10 AM EST Hospital Encounter [place] [address] Discharge Disposition: Home or Self Care 03/16/2025 Orders [facility] [place] [address] Maxx Khan MD Invasive ductal carcinoma of breast, female, right (HCC) (Primary Dx) 03/16/2025 Orders Only [place] [address] Esperanza Monsalve APRN Acute cystitis with hematuria (Primary Dx) 03/16/2025 Orders Only [facility] Cancer Care [facility] [place] [address] Bhavesh Poole MD 03/16/2025 Telephone [facility] [place] [address] Maxx Khan MD Symptom Call (Burning when urinates, backache (started 03/14)) 03/13/2025 Telephone [facility] [address] [place] [address] Mary Saleh, Clerical Staff Follow-up (Port placement follow up ) 03/11/2025 1:00 PM EST - 03/11/2025 11:59 PM EST Hospital Encounter [place] [address] Discharge Disposition: Home or Self Care 03/09/2025 1:30 PM EST - 03/09/2025 11:59 PM EST Hospital Encounter [place] [address] Esperanza Monsalve APRN Invasive ductal carcinoma of breast, female, right (HCC) (Primary Dx); Chemotherapy-induced nausea; Chemotherapy follow-up examination; Chemotherapy induced neutropenia Discharge Disposition: Home or Self Care 03/09/2025 1:15 PM EST - 03/09/2025 1:29 PM EST Hospital Encounter [place] [address] Invasive ductal carcinoma of breast, female, left (HCC) (Primary Dx); Invasive ductal carcinoma of breast, female, right (HCC) Discharge Disposition: Home or Self Care 03/09/2025 Telephone [facility] [place] [address] Yusra Mcdaniels RN 03/05/2025 Orders Only [place] [address] Esperanza Monsalve APRN Invasive ductal carcinoma of breast, female, right (HCC) (Primary Dx) 03/04/2025 Telephone [place] [address] Maxx Khan MD Follow-up (Chemo callback ) 03/03/2025 Specialty Pharmacy [facility] [address] [place], [place] [id number] Maxx Khan MD Pharmacy Specialty Management (Perjeta 420mg) 03/02/2025 8:29 AM EST - 03/02/2025 11:59 PM EST Hospital Encounter [facility] [place], [place] [id number] Invasive ductal carcinoma of breast, female, right (HCC) (Primary Dx) Discharge Disposition: Home or Self Care 03/02/2025 7:55 AM EST - 03/02/2025 8:28 AM EST Hospital Encounter [place] [address] Maxx Khan MD Invasive ductal carcinoma of right breast, stage 4 (HCC) (Primary Dx); Encounter for antineoplastic chemotherapy; Port-A-Cath in place Discharge Disposition: Home or Self Care 03/02/2025 7:44 AM EST - 03/02/2025 7:54 AM EST Hospital Encounter [place] [address] Invasive ductal carcinoma of breast, female, right (HCC) (Primary Dx) Discharge Disposition: Home or Self Care 03/02/2025 Patient Outreach [place] [address] Idania Cobb, digital strategy manager Nurse Navigation (F2F) 03/02/2025 Orders Only [facility] [place] [phone] Tc Hickey, PharmD 03/02/2025 Telephone [facility] [place] [address] Maxx Khan MD Reschedule (Radiation ) 02/27/2025 9:25 AM EDT - 02/27/2025 11:59 PM EDT Hospital Encounter [facility] [address] [facility] [place] [phone] Maxx Khan MD Mikhail, Attef A, MD Invasive ductal carcinoma of right breast, stage 4 (HCC) Discharge Disposition: Home or Self Care 02/27/2025 Patient Outreach [facility] [place] [address] Elena Buck, Clerical Staff Financial Counseling 02/27/2025 Telephone [place] [address] Maxx hKan MD Patient Question (question about medication ) 02/27/2025 Telephone [place] [address] Rossana Vergara, Clerical Staff Integrative Oncology Referral (massage therapy) 02/25/2025 1:51 PM EDT - 02/25/2025 11:59 PM EDT Hospital [facility] [place] [address] Bhavesh Poole MD Secondary malignant neoplasm of bone (HCC) Discharge Disposition: Home or Self Care 02/25/2025 12:35 PM EDT - 02/25/2025 1:50 PM EDT Hospital Encounter [facility] [place] [place] [address] Bhavesh Poole MD Secondary malignant neoplasm of bone (HCC) (Primary Dx) Discharge Disposition: Home or Self Care 02/25/2025 12:33 PM EDT - 02/25/2025 12:34 PM [place] [address] Discharge Disposition: Home or Self Care 02/25/2025 11:33 AM EDT - 02/25/2025 12:32 PM EDT Hospital Encounter [facility] [place] [address] Bhavesh Poole MD Invasive ductal carcinoma of breast, female, right (HCC) (Primary Dx); Invasive ductal carcinoma of breast, female, left (HCC); Secondary malignant neoplasm of bone (HCC) Discharge Disposition: Home or Self Care 02/25/2025 9:35 AM EDT - 02/25/2025 11:32 AM EDT Hospital Encounter [facility] [address] [place] [id number] Maxx Khan MD Invasive ductal carcinoma of right breast, stage 4 (HCC) Discharge Disposition: Home or Self Care 02/25/2025 Results Follow-Up Cancer [place] [id number] Maxx Khan MD EC ECHOCARDIOGRAM COMPLETE W DOPPLER AND COLOR FLOW MAPPING 02/25/2025 [place] [address] Maxx Khan MD Medication Management (emla cream ) 02/25/2025 Social Work [facility] [place] [address] Samir Culver MSW 02/25/2025 Results Follow-Up Cancer [place] [address] Maxx Khan MD MRI COMPLETE SPINAL SCREENING W WO CONTRAST, MRI BRAIN W WO CONTRAST 02/23/2025 1:58 PM EDT - 02/23/2025 11:59 PM EDT Hospital Encounter [facility] MRI [address] [place] [address] Maxx Khan MD Invasive ductal carcinoma of right breast, stage 4 (HCC) Discharge Disposition: Home or Self Care 02/23/2025 1:58 PM EDT - 02/23/2025 11:59 PM EDT Hospital Encounter [facility] MRI [address] [place] [address] Maxx Khan MD Invasive ductal carcinoma of right breast, stage 4 (HCC) Discharge Disposition: Home or Self Care 02/20/2025 Social Work [facility] Cancer Care [facility] [place] [address] Xiomara Mackey MSW 02/19/2025 Orders Only [facility] [address] [place] [address] Rossana Ashley, JULIAN Invasive ductal carcinoma of right breast (HCC) (Primary Dx) 02/19/2025 Telephone [facility] [address] [place] [address] Mary Saleh, Clerical Staff Procedure (PAC Insert ) 02/19/2025 Telephone [facility] [place], [place] [phone] Annalisa Cohn, Clerical Staff Integrative Oncology Referral 02/19/2025 Telephone [facility] [place], [place] [phone] Kristina Beauchamp, Clerical Staff New Patient (Ref Bill) 02/18/2025 12:36 PM EDT - 02/18/2025 11:59 PM EDT Hospital Encounter [place] [address] Maxx Khan MD Invasive ductal carcinoma of right breast, stage 4 (HCC) (Primary Dx); Invasive ductal carcinoma of breast, female, right (HCC) Discharge Disposition: Home or Self Care 02/18/2025 12:21 PM EDT - 02/18/2025 12:35 PM EDT Hospital Encounter [place] [address] Invasive ductal carcinoma of breast, female, right (HCC) Discharge Disposition: Home or Self Care 02/18/2025 Refill [place] [address] Maxx Khan MD Medication Management (Pharmacy out of 2 medications ) 02/18/2025 Social Work [facility] Cancer Care [facility] [address] [place] [address] Xiomara Mackey, TERRITORY SERVICE REPRESENTATIVE 02/18/2025 Telephone [facility] [place] [phone] Maxx Khan MD Schedule Appointment (D1C1, PORT, ECHO, SPINAL MRI, BRAIN MRI) 02/18/2025 Telephone [facility] [address] [place] [address] Jammie Hogue, Clerical Staff Follow-up (Billing Question) 02/17/2025 Results Follow-Up [facility] [address] [place] [address] Celina Mckay, [facility]ET[facility] 02/17/2025 Telephone [facility] [address] [place], [place] [phone] Celina Mckay, [facility] Results ([facility]- Negative) 02/17/2025 Social Work [facility] Cancer [facility] [address] [place] [facility] Samir Culver, TERRITORY SERVICE REPRESENTATIVE 02/16/2025 Orders Only [facility] [address] [place], [place] [phone] Provider, Historical 02/12/2025 Results Follow-Up [facility] Women's Wellness [facility] [place] [address] Tresa Jacinto, DO PET CT SKULL BASE TO MID THIGH 02/11/2025 2:25 PM EDT - 02/11/2025 11:59 PM EDT Hospital Encounter [facility] CT [place] [phone] Tresa Jacinto, DO Pre-procedural laboratory examination (Primary Dx); Invasive ductal carcinoma of breast, female, right (HCC); Invasive ductal carcinoma of breast, female, left (HCC) Discharge Disposition: Home or Self Care 02/10/2025 Telephone [place] [address] Annalisa Cohn, Clerical Staff Integrative Oncology Referral 02/09/[address] [facility] [address] [place] [facility] Yenni Shankar, RN Follow-up 02/09/2025 Telephone [place] [address] Maxx Khan MD New Patient 02/06/2025 2:30 PM EDT - 02/06/2025 11:59 PM EDT Hospital Encounter [facility] [address] [place] [address] Ladonna Ceja MA Genetic testing (Primary Dx) Discharge Disposition: Home or Self Care 02/06/2025 2:00 PM EDT - 02/06/2025 2:29 PM EDT Hospital Encounter [facility] [address] [place], [place] [phone] Celina Mckay CGC Genetic screening (Primary Dx) Discharge Disposition: Home or Self Care 02/06/2025 12:55 PM EDT - 02/06/2025 1:59 PM EDT Hospital Encounter [facility] [place] [address] Tresa Jacinto, Invasive ductal carcinoma of breast, female, right (HCC) (Primary Dx); Invasive ductal carcinoma of breast, female, left (HCC); Axillary lymphadenopathy; Thickening of skin of breast Discharge Disposition: Home or Self Care 02/06/[address] [facility] [place] [address] Yenni Shankar, RN Other (Exercise RX) 02/06/2025 Social Work [facility] Cancer Care [facility] [address] [place] [facility] Xiomara Mackey MSW 02/02/2025 7:50 AM EDT Tumor Board [place] [address] 01/22/2025 1:26 PM EDT - 01/22/2025 11:59 PM EDT Hospital Encounter [facility] [place] [address] Bilateral malignant neoplasm of breast in female, unspecified estrogen receptor status, unspecified site of breast (HCC) (Primary Dx) Discharge Disposition: Home or Self Care 01/22/2025 Patient Outreach [place] [address] Idania Cobb, digital strategy manager Nurse Navigation (Patient Intake/Intro) 01/22/[address] [facility] [place] [address] Rachel Jeronimo RN Other (MRI BILL - Rally for Cure?) 01/22/2025 Social Work [facility] [place] [address] Xiomara Mackey, JANET 01/21/2025 Social Work [facility] [place] [address] Xiomara Mackey, TERRITORY SERVICE REPRESENTATIVE from Last 3 Months Immunizations Immunization Administration Dates Next Due Tdap 12/30/2008 Surgical History Surgery Date Site/Laterality Comments BREAST BIOPSY Left 1999 KIDNEY SURGERY 04/30/2016 - 04/29/2017 Left [place] ABDOMINAL HERNIA REPAIR 04/30/2020 - 04/29/2021 [place] UTERINE FIBROID SURGERY 04/30/2019 - 04/29/2020 laproscopic [...] PM EST Appointment [facility] [place] [place] [address] Maxx Khan MD [address] [facility] [place] [address] 05/04/2025 8:15 AM EST Appointment [place] [address] 05/04/2025 8:45 AM EST Appointment [place] [address] Maxx Khan MD [address] [facility] [place] [address] 05/04/2025 9:00 AM EST Appointment [facility] [place], [place] [phone] 05/28/2025 10:30 AM EST Appointment [facility] [place] [address] Maxx Khan MD [address] [facility] [place] [address] 06/26/2025 10:15 AM EST Appointment [place] [address] Consuelo Ugarte, LEIF [address] [facility] [place] [address] Health Maintenance Due Date Last Done Comments [...] Patient-Stated? Author [facility] Yenni Funk, RN Note: Patient [...] - 10.3 x10(3)/mc L 04/13/2025 10:09 AM [facility] RBC 3.49(L) 3.90 - 5.20 x10(6)/mc L 04/13/2025 10:09 AM [facility] Hgb 10.5(L) 11.2 - 15.7 g/dL 04/13/2025 10:09 AM [facility] Hct 31.2(L) 34.0 - 45.0 % 04/13/2025 10:09 AM [facility] MCV 89.4 80.0 - 100.0 fL 04/13/2025 10:09 AM [facility] MCH 30.1 26.0 - 34.0 pg 04/13/2025 10:09 AM [facility] MCHC 33.7 30.7 - 35.5 g/dL 04/13/2025 10:09 AM [facility] RDW 16.1(H) <=14.9 % 04/13/2025 10:09 AM [facility] Platelet 325 155 - 369 x10(3)/mc L 04/13/2025 10:09 AM [facility] MPV 8.2(L) 8.8 - 12.5 fL 04/13/2025 10:09 AM [facility] Neut # Prelim 6.3(H) 1.6 - 6.1 x10(3)/mc L 04/13/2025 10:09 AM [facility] Comment:Preliminary automate d absolute neutrophil count. Value may change if manual differential is indicated. Neut Percent 75.3 % 04/13/2025 10:09 AM [facility] Comment:Neutrophils equals s egs plus bands Imm Gran% 2.3 % 04/13/2025 10:09 AM [facility] Comment:Automated count of m etamyelocytes, myelocytes and promyelocytes. IG >1% represents a left shift and provides an early indication of an infection or inflammatory process. Lymph Percent 10.2 % 04/13/2025 10:09 AM EST [facility] Preble Percent 7.8 % 04/13/2025 10:09 AM EST [facility] Eos Percent 3.7 % 04/13/2025 10:09 AM [facility] Baso Percent 0.7 % 04/13/2025 10:09 AM [facility] Neut # 6.3(H) 1.6 - 6.1 x10(3)/mc L 04/13/2025 10:09 AM [facility] Comment:Neutrophils equals s egs plus bands IMMGRAN# 0.2(H) 0.0 - 0.1 x10(3)/mc L 04/13/2025 10:09 AM [facility] Comment:Automated count of m etamyelocytes, myelocytes and promyelocytes. An absolute IG <0.1 is reported as 0.0. Lymph # 0.9(L) 1.2 - 3.9 x10(3)/mc L 04/13/2025 10:09 AM EST [facility] Preble # 0.7 0.3 - 0.9 x10(3)/mc L 04/13/2025 10:09 AM [facility] Eos# 0.3 0.0 - 0.5 x10(3)/mc L 04/13/2025 10:09 AM [facility] Baso # 0.1 0.0 - 0.1 x10(3)/mc L 04/13/2025 10:09 AM [facility] Blood VENOUS BLOOD / Unknown Port / Unknown 04/13/2025 10:01 AM EST 04/13/2025 10:05 AM EST us Maxx Khan MD HEMATOLOGY ORDERABLES Final Re sult [facility] [address] [place], [place] [id number] * MAGNESIUM LEVEL (04/13/2025 10:01 AM EST) Only the most recent of3 resultswithin the time period is included. [facility] Magnesium 1.8 1.6 - 2.4 mg/dL 04/13/2025 10:31 AM EST [facility] Blood VENOUS BLOOD / Unknown Port / Unknown 04/13/2025 10:01 AM EST 04/13/2025 10:05 AM EST us Maxx Khan MD CHEMISTRY ORDERABLES [place] [address] * (ABNORMAL) COMPREHENSIVE METABOLIC PANEL (04/13/2025 10:01 AM EST) Only the most recent of6 resultswithin the time period is included. [facility] Sodium 143 136 - 145 mmol/L 04/13/2025 10:31 AM [facility] Potassium 3.6 3.5 - 5.0 mmol/L 04/13/2025 10:31 AM [facility] Chloride 109(H) 98 - 107 mmol/L 04/13/2025 10:31 AM [facility] Total CO2 23 22 - 29 mmol/L 04/13/2025 10:31 AM [facility] Anion Gap 11 7 - 16 mmol/L 04/13/2025 10:31 AM [facility] Calcium 8.9 8.8 - 10.4 mg/dL 04/13/2025 10:31 AM [facility] Glucose Lvl 132(H) 70 - 99 mg/dL 04/13/2025 10:31 AM EST [facility] BUN 11 8 - 23 mg/dL 04/13/2025 10:31 AM [facility] Creatinine 0.61 0.51 - 1.30 mg/dL 04/13/2025 10:31 AM [facility] Albumin 3.5 3.2 - 4.6 gm/dL 04/13/2025 10:31 AM EST [facility] Total Protein 6.2(L) 6.4 - 8.3 gm/dL 04/13/2025 10:31 AM EST [facility] Bili Total 0.3 0.2 - 1.3 mg/dL 04/13/2025 10:31 AM EST [facility] ALT 32 <=41 U/L 04/13/2025 10:31 AM EST [facility] AST 24 <=40 U/L 04/13/2025 10:31 AM EST [facility] Alk Phos 110 36 - 123 U/L 04/13/2025 10:31 AM EST [facility] eGFR (CKD-EPIcr 2020) 99 >=60 mL/min/1.7 3 m2 04/13/2025 10:31 AM EST [facility] Comment:Estimated GFR was ca lculated using the CKD-EPIcr (2020) equation refit without race. The equation is recommended by the National Kid[employer] - [place] [employer] Neph[employer] Task Force. Blood VENOUS BLOOD / Unknown Port / Unknown 04/13/2025 10:01 AM EST 04/13/2025 10:05 AM EST us Maxx Khan MD CHEMISTRY ORDERABLES [place] [address] * RADIATION TREATMENT SUMMARY (03/20/2025 2:07 PM EST) Course ID [id number] ARIA Course Start Date 02/25/2025 2:59:00 PM ARIA Primary Oncologist Bhavesh Poole ARIA Session Number 5 ARIA Treatment Date_Time 03/20/2025 2:07:34 PM ARIA Treatment Elapsed Days 4 ARIA Fractions Treated 15 ARIA Reference Point ID Iso_pnt_L1- L3 ARIA Dosage Given to Date in Gy 20.32345382 ARIA Session Dosage Given in Gy 4.96106269 ARIA Reference Point ID Iso_pnt_RtF emur ARIA Dosage Given to Date in Gy 20.4531787 ARIA Session Dosage Given in Gy 4.73198574 ARIA Reference Point ID Iso_pnt_T5 ARIA Dosage Given to Date in Gy 20.4284434 ARIA Session Dosage Given in Gy 4.65352716 ARIA Reference Point ID Ref_pnt_L1- L3 ARIA [...] MD RADIATION ONCOLOGY ORDERABLES Fi nal Result [facility] [address] [facility] [place] [address] * RADIATION TREATMENT SUMMARY (03/19/2025 2:09 PM EST) Course ID C1 ARIA Course Start Date 02/25/2025 2:59:00 PM ARIA Primary Oncologist Bhavesh Poole ARIA Session Number 4 ARIA Treatment Date_Time 03/19/2025 2:09:12 PM ARIA Treatment Elapsed Days 3 ARIA Fractions Treated 12 ARIA Reference Point ID Iso_pnt_L1- L3 ARIA Dosage Given to Date in Gy 16.14866443 ARIA Session Dosage Given in Gy 4.71625448 ARIA Reference Point ID Iso_pnt_RtF emur ARIA Dosage Given to Date in Gy 16.59449320 ARIA Session Dosage Given in Gy 4.93546399 ARIA Reference Point ID Iso_pnt_T5 ARIA Dosage Given to Date in Gy 16.11220864 ARIA Session Dosage Given in Gy 4.27252969 ARIA Reference Point ID Ref_pnt_L1- L3 ARIA [...] ONCOLOGY ORDERABLES nal Result Performing Organization Address City/State/[facility] Co de Phone Number [address] [place] [phone] * RADIATION TREATMENT SUMMARY (03/18/2025 2:07 PM EST) Course ID C1 ARIA Course Start Date 02/25/2025 2:59:00 PM CARINEA Primary Oncologist Bhavesh Poole Session Number 3 ARIA Treatment Date_Time 03/18/2025 2:07:39 PM ARIA Treatment Elapsed Days 2 ARIA Fractions Treated 9 ARIA Reference Point ID Iso_pnt_L1- L3 ARIA Dosage Given to Date in Gy 12.75063189 ARIA Session Dosage Given in Gy 4.92021110 ARIA Reference Point ID Iso_pnt_RtF emur ARIA Dosage Given to Date in Gy 12.91642363 ARIA Session Dosage Given in Gy 4.75033956 ARIA Reference Point ID Iso_pnt_T5 ARIA Dosage Given to Date in Gy 12.91614748 ARIA Session Dosage Given in Gy 4.59829874 ARIA Reference Point ID Ref_pnt_L1- L3 ARIA [...] ORDERABLES Fi nal Result ARI[facility] 1 Medical [facility] [place] [address] * RADIATION TREATMENT SUMMARY (03/17/2025 12:31 PM EST) Course ID C1 ARIA Course Start Date 02/25/2025 2:59:00 PM ARIA Primary Oncologist Bhavesh Poole Session Number 2 ARIA Treatment Date_Time 03/17/2025 12:31:51 PM ARIA Treatment Elapsed Days 1 ARIA Fractions Treated 6 ARIA Reference Point ID Iso_pnt_L1- L3 ARIA Dosage Given to Date in Gy 8.87210535 ARIA Session Dosage Given in Gy 4.39221166 ARIA Reference Point ID Iso_pnt_RtF emur ARIA Dosage Given to Date in Gy 8.42322778 ARIA Session Dosage Given in Gy 4.06071598 ARIA Reference Point ID Iso_pnt_T5 ARIA Dosage Given to Date in Gy 8.65942087 ARIA Session Dosage Given in Gy 4.83470357 ARIA Reference Point ID Ref_pnt_L1- L3 ARIA [...] MD RADIATION ONCOLOGY ORDERABLES Fi nal Result [facility] 1 Medical [facility] [place] [address] * (ABNORMAL) URINALYSIS REFLEX (03/16/2025 12:27 [...] Final Result [facility] 1 [facility] , [place] [address] * (ABNORMAL) URINE CULTURE (NO STAIN) (03/16/2025 [...] MICROBIOLOGY - GENERAL ORDERAB LES Final Result [facility], [address] , [facility] [place] [address] * RADIATION TREATMENT SUMMARY (03/16/2025 12:01 PM EST) Course ID C1 ARIA Course Start Date 02/25/2025 2:59:00 PM ARIA Primary Oncologist Bhavesh Poole Session Number 1 ARIA Treatment Date_Time 03/16/2025 12:01:52 PM ARIA Treatment Elapsed Days 0 ARIA Fractions Treated 3 ARIA Reference Point ID Iso_pnt_L1- L3 ARIA Dosage Given to Date in Gy 4.31133124 ARIA Session Dosage Given in Gy 4.70026565 ARIA Reference Point ID Iso_pnt_RtF emur ARIA Dosage Given to Date in Gy 4.20810137 ARIA Session Dosage Given in Gy 4.37291930 ARIA Reference Point ID Iso_pnt_T5 ARIA Dosage Given to Date in Gy 4.78697575 ARIA Session Dosage Given in Gy 4.65849727 ARIA Reference Point ID Ref_pnt_L1- L3 ARIA [...] ORDERABLES Fi nal Result Performing Organization Address City/State/[facility] Co de Phone Number [address] [place] [address] * IR PORT PLACEMENT EQUAL [...] - 13.6 second(s) 02/27/2025 10:33 AM EDT [facility] INR 1.03 0.91 - 1.18 (ratio) 02/27/2025 10:33 AM EDT [facility] Comment: Level of Therapy Indications Target INR Range Standard Dose Treatment and prophylaxis of venous 2.0 - 3.0 thrombosis, pulmonary embolism High Dose High risk patients with mechanical 2.5 - 3.5 heart valves Blood VENOUS BLOOD / Unknown Venipuncture / Unknown 02/27/2025 9:28 AM EDT 02/27/2025 10:23 AM EDT Jeannine Hoyos MD HEMATOLOGY ORDERABLES Final R esult Performing Organization Address City/State/[facility] Co de Phone Number [facility] [address] [place] [address] * CT CHEST RADIATION THERAPY PLANNING [...] Blood Historical Provider HEMATOLOGY ORDERABLES Final Result [facility] [address] [facility] [address] [place] [address], [facility] [phone] * PET CT SKULL BASE TO MID [...] 9. Extensive uptake in the central leftward P2zrfmvcccw body SUV 10.6. Extensive uptake in the [...] - 100 mg/dL 02/11/2025 2:41 PM EDT [facility] Sample Type Capillary 02/11/2025 2:41 PM EDT [facility] Patient Status Non-Critical Patient 02/11/2025 2:41 PM EDT [facility] Blood BLOOD SPECIMEN / Unknown 02/11/2025 2:40 PM EDT 02/11/2025 2:41 PM EDT us Tresa Jacinto DO POINT OF CARE TEST ORDERABLE S Final Result [facility] 1 [place] [address] * PATHOLOGY TISSUE REQUEST (02/06/2025 3:52 PM EDT) CASE REPORT Surgical Pathology Case: [id number] Authorizing Provider: Tresa Jacinto DO Collected: 02/06/2025 1552 Ordering Location: [facility] Received: 02/06/[address] [place] [address] Pathologist: Deb Cho MD Specimen: Breast, Right 02/09/2025 1:54 PM EDT [facility] FINAL DIAGNOSIS Skin, right breast, punch biopsy: - Benign skin fragment with mild dermal perivascular chronic inflammation. - Negative for cytologic atypia or malignancy. 02/09/2025 1:54 PM EDT [facility] at 1354 EDT GROSS DESCRIPTION A. [...] SHAYLEE (ASCP) 02/06/2025 02/09/2025 1:54 PM EDT [facility] MICROSCOPIC DESCRIPTION The microscopic examination may have been rendered in whole, or in part, by analyzing high-resolution digital images (whole slide images) on the [employer] Digital Pathology platform validated at [facility]. 02/09/2025 1:54 PM EDT [facility] EMBEDDED IMAGES 02/09/2025 1:54 PM EDT [facility] Tissue RIGHT BREAST STRUCTURE / Unknown 02/06/2025 3:52 PM EDT 02/06/2025 3:59 PM EDT us Tresa Jacinto DO PATHOLOGY ORDERABLES Final R esult [facility] 1 [place] [address] * (ABNORMAL) MM MAMMO DIGITAL LASHAUN DIAGN BILAT (01/02/2025 2:24 PM EDT) Anatomical Region Laterality Modality Breast Bilateral Mammography 01/02/2025 2:24 PM EDT Addenda Addendum by Ryanne Polk MD on 01/05/2025 9:14 AM EDT EXAM: MM MAMMO DIGITAL LASHAUN DIAGN BILAT, MM US BREAST LIMITED BILATERAL EXAM DATE: 01/02/2025 2:24 PM [id number] ADDENDUM: Patient's outside films from [facility] in [place], [place] dated 02/11/2015, 07/29/2012, 05/01/2012, and 02/22/2012 [...] longer necessary. IMPRESSION: Highly Suggestive of Malignancy (UHX-Xnlyygeh-3) RECOMMENDATION: Ultrasound Guided Breast Biopsy Bilateral COMMENTS: [...] next breast imaging, in accordance with the [employer] and the Society of Breast Imaging recommendations. *Breast Imaging has a false negative rate of 15%. *Any patient with a palpable abnormality, unexplained by breast imaging, should be managed on a clinical basis by the attending physician. Impressions 01/02/2025 4:17 PM EDT Highly Suggestive of Malignancy (GQU-Ktgnqfzp-4) ASSESSMENT TEXT: . RECOMMENDATION: Ultrasound Guided Breast [...] warranted. DISCLAIMER *The patient was notified by [employer] or mail of the results for this examination. *The patient's information was entered into a reminder system with a target due date for the next breast imaging, in accordance with the [employer] and the Society of Breast Imaging recommendations. *Breast Imaging has a false negative rate of 15%. *Any patient with a palpable abnormality, unexplained by breast imaging, should be managed on a clinical basis by the attending physician. Narrative 01/02/2025 4:17 PM EDT EXAM: MM MAMMO DIGITAL LASHAUN DIAGN BILAT, MM US BREAST LIMITED BILATERAL EXAM DATE: 01/02/2025 2:24 PM [id number] INDICATION: N63.10-Unspecified lump in the right breast, unspecified [id number] 64-year-old presents with a palpable RIGHT breast lump that she has noticed for 3 months. Patient reports history of prior LEFT biopsy. Evaluate. COMPARISON STUDIES: Baseline mammogram at this institution. Patient has prior outside mammograms from [facility] from 02/11/2015 and dating back to [...] LIMITED BILATERAL EXAM DATE: 01/02/2025 2:24 PM [id number] INDICATION: N63.10-Unspecified lump in the right breast, unspecified [id number] 64-year-old presents with a palpable RIGHT breast lumpthat she has noticed for 3 months. Patient reports history of prior LEFTbiopsy. Evaluate. COMPARISON STUDIES: Baseline mammogram at this institution. Patient hasprior outside mammograms from [facility] from 02/11/2015nd dating back to 02/22/2012. [...] be reported history of calcifications being biopsied [id number]. Posterior to the biopsy clip in the [...] is unremarkable. IMPRESSION: Highly Suggestive of Malignancy (GIQ-Sgtmakzt-5) ASSESSMENT TEXT: . RECOMMENDATION: Ultrasound Guided Breast [...] next breast imaging, in accordance with the [employer] and the Society of Breast Imaging recommendations. *Breast Imaging has a false negative rate of 15%. *Any patient with a palpable abnormality, unexplained by breast imaging,should be managed on a clinical basis by the attending physician. Rocio Esquivel NP IMG MAMMOGRAPHY ORDERABLES Edit ed Result - Final from Last 3 Months or Most Recently Relevant to Health Maintenance Care Teams Aircraft Armorer Relationship Specialty Start Date End Date Idania Cobb, RN Oncology Nurse Navigator 01/22/25 Maxx Khan MD 1 [place] [address] Medical Oncologist Internal Medicine-Medical Oncology 02/18/25 Obdulia Mazariegos, ANTHONY Registered Nurse 02/18/25 Bhavesh Poole MD 1 [place] [address] Radiation Oncologist Radiology-Radiation Oncology 02/24/25 Elena Buck, Clerical Staff Financial Counselor 02/27/25
--- OUTSIDE RECORDS SUMMARY | 2025-04-22 08:27 | XMS_ITS | Encounter Summary ---
Author Organization [place] [address] Care Team Providers Care Imaging Specialist Name Role Phone Idania Cobb RN Unavailable Maxx Khan MD Unavailable [phone] Obdulia Mazariegos RN Unavailable Unavailable Bhavesh Poole MD Unavailable Elena Buck Clerical Staff Unavailable Ankush Jean RN Unavailable Unavailable Reason for Visit * Reason Onset Date Comments Schedule Appointment 03/23/2025 ECHO Encounter Details Date Type Department Care Team (Late st Contact Info) Description 03/23/2025 Telephone [facility] [place] [address] Maxx Khan MD [address] [place] [address] Schedule Appointment (ECHO ) Social History [...] PM EST Appointment [facility] [place] [address] Maxx Khan MD [address] [place] [address] [place] [address] 05/04/2025 8:15 AM EST Appointment [facility] [place] [address] 05/04/2025 8:45 AM EST [facility]ointment [facility] [place] [address] Maxx Khan MD [address] [place] [address] [place] [address] 05/04/2025 9:00 AM EST Appointment [facility] [place], [place] [id number] 05/28/2025 10:30 AM EST Appointment [facility] [place] [address] Maxx Khan MD [address] [place] [address] [place] [address] 06/26/2025 10:15 AM EST Appointment [facility] [place] [address] Consuelo Ugarte APRN [address] [place] [address] [place] [address] documented as of this encounter Goals Goal Patient Goal Type Associated Problems Recent Progress Patient-Stated? Author Breast Health Breast Health Yenni Funk, RN Note: Patient acknowledges understanding of new diagnosis, plan of care, available resources and how to contact Nurse Navigator with any future questions or concerns. documented as of this encounter Visit Diagnoses Not on filedocumented in this encounter Care Teams Imaging Specialist Relationship Specialty Start Date End Date Idania Cobb RN Oncology Nurse Navigator 01/22/25 Maxx Khan MD [address] [place] [address] Medical Oncologist Internal Medicine-Medical Oncology 02/18/25 Obdulia Mazariegos, ANTHONY Registered Nurse 02/18/25 Bhavesh Poole MD 1 [place], [place] [address] Radiation Oncologist Radiology-Radiation Oncology 02/24/25 Elena Buck, Clerical Staff Financial Counselor 02/27/25 Ankush Jean, ANTHONY Registered Nurse Infusion Therapy 03/23/25 03/23/25 documented as of this encounter
--- OUTSIDE RECORDS SUMMARY | 2025-04-22 08:27 | XMS_ITS | Encounter Summary ---
Author Organization [place] [address] Care Team Providers Care Back End Architect Name Role Phone Idania Cobb RN Unavailable Maxx Khan MD Unavailable [phone] Obdulia Mazariegos RN Unavailable Unavailable Bhavesh Poole MD Unavailable Elena Buck Clerical Staff Unavailable Reason for Visit * Reason Onset Date Comments Medication Management 03/24/2025 oxymetazol ine 0.025 % Nasl [place], Non-Aerosol Encounter Details Date Type Department Care Team (Late st Contact Info) Description 03/24/2025 Telephone [facility] Medical Oncology [place] [id number] Maxx Khan MD [address] [place], [place] [id number] Medication Management (oxymetazoline 0.025 % Nasl [place], Non-Aerosol) Social History Tobacco Use Types Packs/Day [...] Date End Date oxymetazoline 0.025 % Nasl [place], Non-AerosolIndicati ons:Nosebleed 1 [place] by Nasal route 2 times daily as [...] for this prescription. oxymetazoline 0.025 % Nasl [place], Non-Aerosol 30 mL ML 03/23/2025 -- Sig - Route: 1 [place] by Nasal route 2 times daily as needed. - Nasal Class: Phone In Preferred call back number:[phone] documented in this encounter Plan of Treatment Upcoming Encounters Date Type Department Care Team (Late st Contact Info) Description 05/01/2025 12:30 PM EST Appointment [facility] [place] [address] Maxx Khan MD [address] [place] [address] [place] [address] 05/04/2025 8:15 AM EST Appointment [facility] [place] [address] 05/04/2025 8:45 AM EST Appointment [facility] [place], [place] [phone] Maxx Khan MD [address] [place] [address] [place] [address] 05/04/2025 9:00 AM EST Appointment [facility] [place], [place] [id number] 05/28/2025 10:30 AM EST Appointment [facility] [place] [address] Maxx Khan MD [address] [facility] [address] [place] [id number] 06/26/2025 10:15 AM EST Appointment [facility] [place] [address] Consuelo Ugarte APRN [address] [facility] [address] [place] [id number] documented as of this encounter Goals Goal [...] End Da te oxymetazoline 0.025 % Nasl [place], Non-AerosolIndications:No sebleed 1 [place] by Nasal route 2 times daily as needed. Reorder 03/23/2025 03/24/2025 documented as of this encounter Care Teams Back End Architect Relationship Specialty Start Date End Date Idania Cobb RN Oncology Nurse Navigator 01/22/25 Maxx Khan MD [address] [facility] [place] [address] Medical Oncologist Internal Medicine-Medical Oncology 02/18/25 Obdulia Mazariegos, RN Registered Nurse 02/18/25 Bhavesh Poole MD [address] [place] [address] Radiation Oncologist Radiology-Radiation Oncology 02/24/25 Elena Buck, Clerical Staff Financial Counselor 02/27/25 documented as of this encounter
--- OUTSIDE RECORDS SUMMARY | 2025-04-22 08:27 | XMS_ITS | Encounter Summary ---
Author Organization [place] [address] Care Team Providers Care Social Worker Health Services Name Role Phone Idania Cobb RN Unavailable Max[place] Khan MD Unavailable [phone] Obdulia Mazariegos RN Unavailable Unavailable Bhavesh Poole MD Unavailable Elena Buck Clerical Staff Unavailable Francisca Oconnor RN Unavailable Unava ilable Reason for Visit * Reason Comments Financial Counseling Encounter Details Date Type Department Care Team (Late st Contact Info) Description 02/27/2025 Patient Outreach [facility] [place] [address] Elena Buck, Clerical Staff Financial [...] - 02/27/2025 3:20 PM EDT Rosario Magda [phone] qualifies for an indigent drug program. Assistance type: Free Drug Status: Approved Free Drug Drug: Perjeta Company: [employer] Phone number: [phone] Treatment location: EDG Next date of service: [...] Raphael CPhT - 03/18/2025 12:44 PM EST [facility] Received delivery of replacement Perjeta (840mg) for dos 03/02 [facility]. Medication will be sent to [facility] to place back in stock. Charge has already been dropped for a renay. * Telephone Encounter - Cristal Hahn CPhT - 03/11/2025 8:38 AM EST [facility] Received shipment confirmation for replacement via fax. Will arrive In 7-10 business days. ID #: [id number] * Telephone Encounter - Peyton Raphael CPhT - 03/03/2025 12:39 PM EST [facility] Shipment arriving 03/11 is NOT for replacement as this is coming from [facility]. Per conversation with [employer]([phone]) replacement for Perjeta 840mg dos 03/02 is currently under review and could take up to 5-7 business days for processing. Shipping radu will be faxed to [facility]. * Telephone Encounter - Peyton Raphael CPhT - 03/03/2025 9:04 AM EST [facility] Patient was tx with Perjeta 840mg 03/02 @ [facility]. REPLACEMENT has NOT arrived but dos fell into work que so charge will be changed to a renay. Replacement to arrive 03/11 Order#: [id number] Next shipment will be upfront. documented in this encounter Plan of Treatment Upcoming Encounters Date Type Department Care Team (Late st Contact Info) Description 05/01/2025 12:30 PM EST Appointment [facility] [place] [address] Maxx Khan MD [address] [place] [address] [place], [place] [id number] 05/04/2025 8:15 AM EST Appointment [facility] [place], [place] [id number] 05/04/2025 8:45 AM EST Appointment [facility] [place], [place] [phone] Maxx Khan MD [address] [place] [address] [place] [address] 05/04/2025 9:00 AM EST Appointment [facility]N [place], [place] [id number] 05/28/2025 10:30 AM EST Appointment [facility] [place] [address] Maxx Khan MD [address] [place] [address] [facility] [place] [address] 06/26/2025 10:15 AM EST Appointment [facility] [place] [place] [address] Consuelo Ugarte, LEIF [address] [facility] [address] [place], [place] [phone] documented as of this encounter Goals Goal Patient Goal Type Associated Problems Recent Progress Patient-Stated? Author Breast Health Breast Health Yenni Funk, ANTHONY Note: Patient acknowledges understanding of new diagnosis, plan of care, available resources and how to contact Nurse Navigator with any future questions or concerns. documented as of this encounter Visit Diagnoses Not on filedocumented in this encounter Care Teams Social Worker Health Services Relationship Specialty Start Date End Date Idania Cobb RN Oncology Nurse Navigator 01/22/25 Maxx Khan MD [address] [facility] [address] [place], [place] [phone] Medical Oncologist Internal Medicine-Medical Oncology 02/18/25 Obdulia Mazariegos RN Registered Nurse 02/18/25 Bhavesh Poole MD 1 [place] [address] Radiation Oncologist Radiology-Radiation Oncology 02/24/25 Elena Buck, Clerical Staff Financial Counselor 02/27/25 Francisca Oconnor, ANTHONY Registered Nurse Infusion Therapy 03/02/25 03/02/25 documented as of this encounter
--- OUTSIDE RECORDS SUMMARY | 2025-04-22 08:27 | XMS_ITS | Encounter Summary ---
Author Organization [place] [address] Care Team Providers Care Embroidery Designer Name Role Phone Idania Cobb RN Unavailable Maxx Khan MD Unavailable [phone] Obdulia Mazariegos RN Unavailable Unavailable Bhavesh Poole MD Unavailable Elena Buck Clerical Staff Unavailable Encounter Details Date Type Department Care Team (Late st Contact Info) Description 03/20/2025 Orders Only [place] [address] Tc Hickey, PharmD Social History Tobacco Use [...] EST Appointment [facility] CT [place] [id number] Maxx Khan MD [address] [place] [address] 05/04/2025 8:15 AM EST Appointment [facility] [place], [place] [id number] 05/04/2025 8:45 AM EST Appointment [facility] [place], [place] [phone] Maxx Khan MD [address] [facility] [address] [place] [id number] 05/04/2025 9:00 AM EST Appointment [facility] [place], [place] [id number] 05/28/2025 10:30 AM EST Appointment [facility] [place] [address] Maxx Khan MD [address] [facility] [place] [address] 06/26/2025 10:15 AM EST Appointment [place] [address] Consuelo Ugarte APRN [address] [facility] [place] [address] documented as of this encounter Goals Goal Patient Goal Type Associated Problems Recent Progress Patient-Stated? Author Breast [facility] Breast Health Yenni Funk RN Note: Patient acknowledges understanding of new diagnosis, plan of care, available resources and how to contact Nurse Navigator with any future questions or concerns. documented as of this encounter Visit Diagnoses Not on filedocumented in this encounter Care Teams Embroidery Designer Relationship Specialty Start Date End Date Idania Cobb RN Oncology Nurse Navigator 01/22/25 Maxx Khan MD [address] [facility] [place] [address] Medical Oncologist Internal Medicine-Medical Oncology 02/18/25 Obdulia Mazariegos, RN Registered Nurse 02/18/25 Bhavesh Poole MD [address] [place] [address] Radiation Oncologist Radiology-Radiation Oncology 02/24/25 Elena Buck, Clerical Staff Financial Counselor 02/27/25 documented as of this encounter
--- OUTSIDE RECORDS SUMMARY | 2025-04-22 08:27 | XMS_ITS | Encounter Summary ---
Author [place] [address] Care Team Providers Care Career Placement Specialist Name Role Phone Idania Cobb RN Unavailable Maxx Khan MD Unavailable [phone] Obdulia Mazariegos RN Unavailable Unavailable Bhavesh Poole MD Unavailable Encounter Details Date Type Department Care Team (Late st Contact Info) Description 02/25/2025 Social Work [facility] [place] [address] Samir Culver MSW Social History [...] - 02/25/2025 2:19 PM EDT 02/25/25 1418 Grain Inspector Assessment Referred By distress tool Disease/[place] Welding Machine Operator Electron Beam Assignment Breast cancer Referral Location: Radiation Oncology Reason for Referral distress tool Identified Needs Mental Health;Financial issues;Insurance Social Work Interventions Education/Information Pt was referred by her distress tool rating of 5 . [place], ORE SMELTER attempted to reach pt by phone unsuccessfully. Phone indicated that was not set up. ORE SMELTER sent pt a message asking if there was anything else could assist with. Pt will contact if there are any new or additional needs. Nothing further from at this time. documented in this encounter Plan of Treatment Upcoming Encounters Date Type Department Care Team (Late st Contact Info) Description 05/01/2025 12:30 PM EST Appointment [facility] [place] [address] Maxx Khan MD [address] [facility] [place] [address] 05/04/2025 8:15 AM EST Appointment [facility] [place], [place] [id number] 05/04/2025 8:45 AM EST [facility]ointment [facility] [place] [address] Maxx Khan MD [address] [place] [address] [address] [place] [address] 05/04/2025 9:00 AM EST Appointment [facility] [place], [place] [id number] 05/28/2025 10:30 AM EST Appointment [facility] [place] [address] Maxx Khan MD [address] [place] [address] [place] [address] 06/26/2025 10:15 AM EST Appointment [facility] [place] [address] Consuelo Ugarte APRN [address] [place] [address] documented as of this encounter Goals Goal Patient Goal Type Associated Problems Recent Progress Patient-Stated? Author Breast Health Breast Health Yenni Funk, RN Note: Patient acknowledges understanding of new diagnosis, plan of care, available resources and how to contact Nurse Navigator with any future questions or concerns. documented as of this encounter Visit Diagnoses Not on filedocumented in this encounter Care Teams Career Placement Specialist Relationship Specialty Start Date End Date Idania Cobb, RN Oncology Nurse Navigator 01/22/25 Maxx Khan MD 1 [place] [address] Medical Oncologist Internal Medicine-Medical Oncology 02/18/25 Obdulia Mazariegos, ANTHONY Registered Nurse 02/18/25 Bhavesh Poole MD 1 [place] [address] Radiation Oncologist Radiology-Radiation Oncology 02/24/25 documented as of this encounter
--- OUTSIDE RECORDS SUMMARY | 2025-04-22 08:27 | XMS_ITS | Encounter Summary ---
Author Organization [place] [address] Care Team Providers Care Wire Walker Name Role Phone Idania Cobb RN Unavailable Maxx Khan MD Unavailable [phone] Obdulia Mazariegos RN Unavailable Unavailable Bhavesh Poole MD Unavailable Elena Buck Clerical Staff Unavailable Francisca Oconnor RN Unavailable Unava ilable Ankush Jean RN Unavailable Unavailable Encounter Details Date Type Department Care Team (Late st Contact Info) Description 02/25/2025 Results Follow-Up Cancer Care Medical Oncology [place] [id number] Maxx Khan MD [address] [place] [address] [id number] MRI COMPLETE SPINAL SCREENING W WO CONTRAST, [...] Description 05/01/2025 12:30 PM EST Appointment [facility] [place], [place] [id number] Maxx Khan MD 1 [facility] [address] 05/04/2025 8:15 AM EST Appointment [place] [address] 05/04/2025 8:45 AM EST Appointment [facility] [place] [address] Maxx Khan MD [address] [place] [address] [place] [address] 05/04/2025 9:00 AM EST Appointment [facility] [place], [place] [id number] 05/28/2025 10:30 AM EST Appointment [facility] [address] Maxx Khan MD [address] [place] [address] [place] [address] 06/26/2025 10:15 AM EST Appointment [facility] [place] [address] Consuelo Ugarte APRN [address] [place] [address] [place] [address] documented as of this encounter Goals Goal Patient Goal Type Associated Problems Recent Progress Patient-Stated? Author Breast Health Breast Health Yenni Funk RN Note: Patient acknowledges understanding of new diagnosis, plan of care, available resources and how to contact Nurse Navigator with any future questions or concerns. documented as of this encounter Visit Diagnoses Not on filedocumented in this encounter Care Teams Wire Walker Relationship Specialty Start Date End Date Idania Cobb RN Oncology Nurse Navigator 01/22/25 Maxx Khan MD 1 [facility] [address] Medical Oncologist Internal Medicine-Medical Oncology 02/18/25 Obdulia Mazariegos, RN Registered Nurse 02/18/25 Bhavesh Poole MD 1 [place] [address] Radiation Oncologist Radiology-Radiation Oncology 02/24/25 Elena Buck, Clerical Staff Financial Counselor 02/27/25 Francisca Oconnor, ANTHONY Registered Nurse Infusion Therapy 03/02/25 03/02/25 Ankush Jean, ANTHONY Registered Nurse Infusion Therapy 03/23/25 03/23/25 documented as of this encounter
--- OUTSIDE RECORDS SUMMARY | 2025-04-22 08:27 | XMS_ITS | Encounter Summary ---
Author Organization [place] [address] Care Team Providers Care Home Stager Name Role Phone Idania Cobb RN Unavailable Maxx Khan MD Unavailable [phone] Obdulia Mazariegos RN Unavailable Unavailable Bhavesh Poole MD Unavailable Elena Buck Clerical Staff Unavailable Reason for Visit * Reason Onset Date Comments Integrative Oncology Referral 02/27/2025 ma ssage therapy Encounter Details Date Type Department Care Team (Late st Contact Info) Description 02/27/2025 Telephone [facility] [place] [id number] Rossana Vergara, Clerical Staff Integrative Oncology Referral [...] PM EST Appointment [facility] [place] [address] Maxx Khan MD [address] [facility] [place] [address] 05/04/2025 8:15 AM EST Appointment [facility] [place], [place] [id number] 05/04/2025 8:45 AM EST Appointment [facility] [place] [address] Maxx Khan MD [address] [facility] [place] [address] 05/04/2025 9:00 AM EST Appointment [facility] [place], [place] 1107817 05/28/2025 10:30 AM EST Appointment [facility] [place] [address] Maxx Khan MD [address] [facility] [place] [address] 06/26/2025 10:15 AM EST Appointment [facility] [place] [address] Consuelo Ugarte APRN [address] [facility] [place] [address] documented as of this encounter Goals Goal Patient Goal Type Associated Problems Recent Progress Patient-Stated? Author Breast Health Breast Health Yenni Funk, ANTHONY Note: Patient acknowledges understanding of new diagnosis, plan of care, available resources and how to contact Nurse Navigator with any future questions or concerns. documented as of this encounter Visit Diagnoses Not on filedocumented in this encounter Care Teams Home Stager Relationship Specialty Start Date End Date Idania Cobb RN Oncology Nurse Navigator 01/22/25 Maxx Khan MD 1 [place] [address] Medical Oncologist Internal Medicine-Medical Oncology 02/18/25 Obdulia Mazariegos, RN Registered Nurse 02/18/25 Bhavesh Poole MD 1 [place] [address] Radiation Oncologist Radiology-Radiation Oncology 02/24/25 Elena Buck, Clerical Staff Financial Counselor 02/27/25 documented as of this encounter
--- OUTSIDE RECORDS SUMMARY | 2025-04-22 08:27 | XMS_ITS | Encounter Summary ---
Author [place] [address] Care Team Providers Care Vat Tender Name Role Phone Idania Cobb RN Unavailable Maxx Khan MD Unavailable [phone] Obdulia Mazariegos RN Unavailable Unavailable Bhavesh Poole MD Unavailable Reason for Visit * Reason Onset Date Comments Medication Management 02/25/2025 emla cream Encounter Details Date Type Department Care Team (Late st Contact Info) Description 02/25/2025 Telephone [facility] Medical Oncology [place], [place] [phone] Maxx Khan MD [address] [place], [place] [phone] Medication Management (emla cream ) Social History [...] With goodrx discount, script is $12.28 at [facility]. Notified patient via [employer]. documented in this encounter Plan of Treatment Upcoming Encounters Date Type Department Care Team (Late st Contact Info) Description 05/01/2025 12:30 PM EST Appointment [facility] CT [place], [place] [id number] Maxx Khan MD [address] [place] [address] [place] [address] 05/04/2025 8:15 AM EST Appointment [facility] [place], [place] [id number] 05/04/2025 8:45 AM EST Appointment [facility] [place] [address] Maxx Khan MD [address] [place] [address] [place] [address] 05/04/2025 9:00 AM EST Appointment [facility] [place], [place] 9368517 05/28/2025 10:30 AM EST Appointment [facility] [place] [address] Maxx Khan MD [address] [place] [address] [place] [address] 06/26/2025 10:15 AM EST Appointment [place] [address] Consuelo Ugarte APRN [address] [facility] [place] [address] documented as of this encounter Goals Goal [...] Primary documented in this encounter Care Teams Vat Tender Relationship Specialty Start Date End Date Idania Cobb RN Oncology Nurse Navigator 01/22/25 Maxx Khan MD 1 [place], [place] [phone] Medical Oncologist Internal Medicine-Medical Oncology 02/18/25 Obdulia Mazariegos RN Registered Nurse 02/18/25 Bhavesh Poole MD 1 [place] [address] Radiation Oncologist Radiology-Radiation Oncology 02/24/25 documented as of this encounter
--- OUTSIDE RECORDS SUMMARY | 2025-04-22 08:27 | XMS_ITS | Encounter Summary ---
Author Organization [place] [address] Care Team Providers Care Customs Compliance Specialist Name Role Phone Idania Cobb RN Unavailable Maxx Khan MD Unavailable [phone] Obdulia Mazariegos RN Unavailable Unavailable Bhavesh Poole MD Unavailable Elena Buck Clerical Staff Unavailable Francisca Oconnor RN Unavailable Unava ilable Ankush Jean RN Unavailable Unavailable Encounter Details Date Type Department Care Team (Latest Contact Info) Description 02/25/2025 Results Follow-Up [facility] [place] [address] Maxx Khan MD [address] [place] [address] [id number] EC ECHOCARDIOGRAM COMPLETE W DOPPLER AND COLOR [...] EST Appointment [facility] CT [place], [place] [phone] Maxx Khan MD [address] [facility] [place] [address] 05/04/2025 8:15 AM EST Appointment [place] [address] 05/04/2025 8:45 AM EST Appointment [facility] [place] [address] Maxx Khan MD [address] [place] [address] [place] [address] 05/04/2025 9:00 AM EST Appointment [facility] [place] [address] 05/28/2025 10:30 AM EST Appointment [facility] [place] [address] Maxx Khan MD [address] [place] [address] [place] [address] 06/26/2025 10:15 AM EST Appointment [facility] [place] [address] Consuelo Ugarte APRN [address] [place] [address] [place] [address] documented as of this encounter Goals Goal Patient Goal Type Associated Problems Recent Progress Patient-Stated? Author Breast [facility] Breast Health Yenni Funk RN Note: Patient acknowledges understanding of new diagnosis, plan of care, available resources and how to contact Nurse Navigator with any future questions or concerns. documented as of this encounter Visit Diagnoses Not on filedocumented in this encounter Care Teams Customs Compliance Specialist Relationship Specialty Start Date End Date Idania Cobb, ANTHONY Oncology Nurse Navigator 01/22/25 Maxx Khan MD [address] [facility] [place] [address] Medical Oncologist Internal Medicine-Medical Oncology 02/18/25 Obdulia Mazariegos, RN Registered Nurse 02/18/25 Bhavesh Poole MD 1 [place] [address] Radiation Oncologist Radiology-Radiation Oncology 02/24/25 Elena Buck, Clerical Staff Financial Counselor 02/27/25 Francisca cOonnor, RN Registered Nurse Infusion Therapy 03/02/25 03/02/25 Ankush Jean RN Registered Nurse Infusion Therapy 03/23/25 03/23/25 documented as of this encounter
--- OUTSIDE RECORDS SUMMARY | 2025-04-22 08:27 | XMS_ITS | Encounter Summary ---
Author [place] [address] Care Team Providers Care Instrument And Control Service Person Name Role Phone Idania Cobb RN Unavailable Maxx Khan MD Unavailable [phone] Obdulia Mazariegos RN Unavailable Unavailable Bhavesh Poole MD Unavailable Elena Buck Clerical Staff Unavailable Encounter Details Date Type Department Care Team (Late st Contact Info) Description 03/20/2025 Orders Only [facility] Cancer Care [facility] [place] [address] Bhavesh Poole MD [address] [place], [place] [id number] Social History Tobacco Use Types Packs/Day Years [...] Appointment [facility] [place] [address] Maxx Khan MD [address] [place] [address] [place] [address] 05/04/2025 8:15 AM EST Appointment [facility] [place], [place] [id number] 05/04/2025 8:45 AM EST Appointment [place] [address] Maxx Khan MD 1 [place] [address] 05/04/2025 9:00 AM EST Appointment [facility] [place], [place] 6503817 05/28/2025 10:30 AM EST Appointment [facility] [address] [place], [place] [address]17 Maxx Khan MD 1 [facility] [place] [address] 06/26/2025 10:15 AM EST Appointment [facility] RAD ONC [place], [place] [phone] Consuelo Ugarte APRN [address] [place] [address] documented as of this encounter Goals Goal [...] ARIA Dosage Given to Date in Gy 20.69674805 ARIA Session Dosage Given in Gy [id number] ARIA Reference Point ID [email or web address] emur ARIA Dosage Given to Date in Gy 20.2874777 ARIA Session Dosage Given in Gy [id number] ARIA Reference Point ID [id number] ARIA Dosage Given to Date in Gy 20.3998619 ARIA Session Dosage Given in Gy [id number] ARIA Reference Point ID [id number] ARIA [...] Fi nal Result Performing Organization Address City/State/[facility] Co de Phone Number ARI 1 [facility] [place] [address] documented in this encounter Visit Diagnoses Not on filedocumented in this encounter Care Teams Instrument And Control Service Person Relationship Specialty Start Date End Date Idania Cobb RN Oncology Nurse Navigator 01/22/25 Maxx Khan MD [address] [place] [address] Medical Oncologist Internal Medicine-Medical Oncology 02/18/25 Obdulia Mazariegos, ANTHONY Registered Nurse 02/18/25 Bhavesh Poole MD 1 [place] [address] Radiation Oncologist Radiology-Radiation Oncology 02/24/25 Elena Buck, Clerical Staff Financial Counselor 02/27/25 documented as of this encounter
--- OUTSIDE RECORDS SUMMARY | 2025-04-22 08:27 | XMS_ITS | Encounter Summary ---
Author [place] [address] Care Team Providers Care Mathematical Sciences Professor Name Role Phone Idania Cobb RN Unavailable Maxx Khan MD Unavailable [phone] Obdulia Mazariegos RN Unavailable Unavailable Bhavesh Poole MD Unavailable Elena Buck Clerical Staff Unavailable Encounter Details Date Type Department Care Team (Late st Contact Info) Description 03/19/2025 Orders Only [facility] Cancer Care [facility] [place] [address] Bhavesh Poole MD [address] [place], [place] [id number] Social History Tobacco Use Types Packs/Day Years [...] Appointment [facility] [place] [phone] Maxx Khan MD [address] [place] [address] [place] [address] 05/04/2025 8:15 AM EST Appointment [facility] [place], [place] [id number] 05/04/2025 8:45 AM EST Appointment [place] [address] Maxx Khan MD 1 [facility] [place] [address] 05/04/2025 9:00 AM EST Appointment [facility] [place], [place] 8525917 05/28/2025 10:30 AM EST Appointment [facility] [address] [place], [place] [address] Maxx Khan MD 1 [facility] [place] [address] 06/26/2025 10:15 AM EST Appointment [facility] RAD ONC [place], [place] 34[address]17 Consuelo Ugarte APRN 1 [facility] [place] [address] documented as of this encounter Goals Goal [...] ARIA Dosage Given to Date in Gy 16.89127545 ARIA Session Dosage Given in Gy 4.22281104 ARIA Reference Point ID [email or web address] emur ARIA Dosage Given to Date in Gy 16.21319138 ARIA Session Dosage Given in Gy 4.35910760 ARIA Reference Point ID [id number] ARIA Dosage Given to Date in Gy 16.99766217 ARIA Session Dosage Given in Gy 4.70419518 ARIA Reference Point ID [id number] ARIA [...] ORDERABLES Fi nal Result Performing Organization Address City/State/[facility] Co de Phone Number ARI 1 [facility] [place] [address] documented in this encounter Visit Diagnoses Not on filedocumented in this encounter Care Teams Mathematical Sciences Professor Relationship Specialty Start Date End Date Idania Cobb RN Oncology Nurse Navigator 01/22/25 Maxx Khan MD 1 [facility] [place] [address] Medical Oncologist Internal Medicine-Medical Oncology 02/18/25 Obdulia Mazariegos, ANTHONY Registered Nurse 02/18/25 Bhavesh Poole MD 1 [place] [address] Radiation Oncologist Radiology-Radiation Oncology 02/24/25 Elena Buck, Clerical Staff Financial Counselor 02/27/25 documented as of this encounter
--- OUTSIDE RECORDS SUMMARY | 2025-04-22 08:27 | XMS_ITS ---
Author Organization 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
--- OUTSIDE RECORDS SUMMARY | 2025-04-22 08:27 | XMS_ITS | Encounter Summary ---
Author Organization [place] [address] Care Team Providers Care Building Certifier Name Role Phone Idania Cobb RN Unavailable Maxx Khan MD Unavailable [phone] Obdulia Mazariegos RN Unavailable Unavailable Bhavesh Poole MD Unavailable Elena Buck Clerical Staff Unavailable Reason for Visit * Reason Onset Date Comments Patient Question 02/27/2025 question about medication Encounter Details Date Type Department Care Team (Late st Contact Info) Description 02/27/2025 Telephone [facility] [place] [address] Maxx Khan MD [address] [place] [address] Patient Question (question about medication ) [...] like that currently. Preferred call back number: [phone] documented in this encounter Plan of Treatment Upcoming Encounters Date Type Department Care Team (Late st Contact Info) Description 05/01/2025 12:30 PM EST Appointment [facility] [place] [address] Maxx Khan MD [address] [place] [address] [place] [address] 05/04/2025 8:15 AM EST Appointment [place] [address] 05/04/2025 8:45 AM EST Appointment [facility] Medical Oncology [place], [place] [phone] Maxx Khan MD [address] [place] [address] [place] [address] 05/04/2025 9:00 AM EST Appointment [facility] [place], [place] 8[address] 05/28/2025 10:30 AM EST Appointment [facility] [place] [address] Maxx Khan MD [address] [place] [address] [place], [place] [address] 06/26/2025 10:15 AM EST Appointment [place] [address] Consuelo Ugarte, WASTEWATER TREATMENT PLANT ATTENDANT [address] [place] [address] documented as of this encounter Goals Goal Patient Goal Type Associated Problems Recent Progress Patient-Stated? Author Breast Health Breast Health Yenni Funk, RN Note: Patient acknowledges understanding of new diagnosis, plan of care, available resources and how to contact Nurse Navigator with any future questions or concerns. documented as of this encounter Visit Diagnoses Not on filedocumented in this encounter Care Teams Building Certifier Relationship Specialty Start Date End Date Idania Cobb RN Oncology Nurse Navigator 01/22/25 Maxx Khan MD [address] [facility] [place] [address] Medical Oncologist Internal Medicine-Medical Oncology 02/18/25 Obdulia Mazariegos, ANTHONY Registered Nurse 02/18/25 Bhavesh Poole MD 1 [place] [address] Radiation Oncologist Radiology-Radiation Oncology 02/24/25 Elena Buck, Clerical Staff Financial Counselor 02/27/25 documented as of this encounter
--- OUTSIDE RECORDS SUMMARY | 2025-04-22 08:27 | XMS_ITS | Encounter Summary ---
Author [place] [address] Care Team Providers Care Administration Intern Name Role Phone Idania Cobb RN Unavailable Maxx Khan MD Unavailable [phone] Obdulia Mazariegos RN Unavailable Unavailable Bhavesh Poole MD Unavailable Elena Buck Clerical Staff Unavailable Reason for Visit * Reason Onset Date Comments Other 04/20/2025 Requesting to sp eak to RN Encounter Details Date Type Department Care Team (Late st Contact Info) Description 04/20/2025 [facility]phone [facility] [place] [address] Maxx Khan MD [address] [place] [id number] Other (Requesting to speak to RN [...] - 04/20/2025 4:45 PM EST Call from [facility] with questions about prescription. Transferred to RN [...] also going to take a picture via [employer]. She also states that she has little blisters on her tongue that make it difficult to talk. Will call in miles mixture ingredients separately to her pharmacy. * Telephone Encounter - Izabela Baires, Clerical Staff - 04/20/2025 1:19 PM EST Reason for call: Patient called requesting to speak to RN. No further information provided. Preferred call back number:[phone] documented in this encounter Plan of Treatment Upcoming Encounters Date Type Department Care Team (Late st Contact Info) Description 05/01/2025 12:30 PM EST Appointment [facility] [place] [address] Maxx Khan MD 1 [facility] [place] [address] 05/04/2025 8:15 AM EST Appointment [place] [address] 05/04/2025 8:45 AM EST [facility]ment [facility] [place] [address] Maxx Khan MD 1 [facility] [place] [address] 05/04/2025 9:00 AM EST Appointment [facility] [place], [place] [id number] 05/28/2025 10:30 AM EST Appointment [facility] [place] [address] Maxx Khan MD [address] [place] [address] [place] [address] 06/26/2025 10:15 AM EST Appointment [facility] [place] [address] Consuelo Ugarte APRN [address] [place] [address] [place] [address] documented as of this encounter Goals Goal [...] therapy documented in this encounter Care Teams Administration Intern Relationship Specialty Start Date End Date Idania Cobb, RN Oncology Nurse Navigator 01/22/25 Maxx Khan MD 1 [place], [place] [id number] Medical Oncologist Internal Medicine-Medical Oncology 02/18/25 Obdulia Mazariegos, ANTHONY Registered Nurse 02/18/25 Bhavesh Poole MD 1 [place], [place] [id number] Radiation Oncologist Radiology-Radiation Oncology 02/24/25 Elena Buck, Clerical Staff Financial Counselor 02/27/25 documented as of this encounter
--- NOTE | 2025-04-22 08:28 | EXP.ACUTE.PN ---
Subjective *Date: 04/22/25 *Time: 08:44 Interval history: Patient is feeling a little bit better. She denies any pain today. She had been taking Bactrim at home for UTI on April 08 and stopped it after a few days because she was feeling better. She states she only came to the emergency room because she knew she was in A-fib. She has converted to normal sinus rhythm this morning. Medical Exam Vital signs and Labs for Last 24 Hours: Vital Signs Temp Pulse Pulse Resp BP BP Pulse Ox 04/22/25 06:05 98.6 F 81 12 131/60 95 04/22/25 05:38 98.1 F 121 H 13 98/59 L 04/22/25 05:30 96 H 16 98 04/22/25 05:30 98/59 L 04/22/25 05:15 110 H 11 L 96 04/22/25 05:00 113/59 L 04/22/25 05:00 90 16 96 04/22/25 04:31 105 H 16 111/72 95 04/22/25 04:28 84 14 98/60 L 95 04/22/25 04:26 61 14 84/51 L 95 04/22/25 04:01 77 15 113/62 95 04/22/25 03:44 83 13 101/64 L 97 04/22/25 03:30 116 H 16 99/63 L 04/22/25 03:05 106 H 18 109/73 L 04/22/25 02:51 98.1 F 160 H 18 147/65 H 97 O2 Del Method 04/22/25 06:05 Room Air 04/22/25 05:38 Room Air 04/22/25 05:30 Room Air 04/22/25 05:30 04/22/25 05:15 Room Air 04/22/25 05:00 04/22/25 05:00 Room Air 04/22/25 04:31 04/22/25 04:28 04/22/25 04:26 04/22/25 04:01 04/22/25 03:44 04/22/25 03:30 04/22/25 03:05 04/22/25 02:51 Room Air Intake and Output 04/21/25 04/22/25 04/22/25 19:59 03:59 11:59 Intake Total 1106.75 / 1106.75 Output Total 500 / 500 Balance 606.75 / 606.75 Intake: Intake, Total IV Amount 1106.75 / 1106.75 Lactated Ringers 1000ML 1,000 1000 / 1000 ml @ 999 mls/hr IV .Q1H1M ONE Rx#:[id number] Piperacillin/Tazo 4.5 gm In 0.9 100 / 100 % Sodium Chloride 100 ml @ 200 mls/hr IV ONCE ONE Rx#: [id number] dilTIAZem HCL 100 mg In 0.9 % 6.75 / 6.75 Sodium Chloride 100 ml @ 5 MG/ HR 5 mls/hr IV .Q20H [facility] Rx#: [id number] Output: Output, Urine Amount 500 / 500 Other: Number of Unmeasured Voids 0 Weight 220 lb 221 lb 1.978 oz Patient Weight 04/22/25 11:59 Weight 221 lb 1.978 oz Laboratory Results - last 24 hr 04/22/25 02:54: Urine Color Yellow, Urine Appearance Clear, Urine pH 6.0, Ur Specific [place] 1.010, Urine Protein 2+ A, Urine Glucose (UA) Negative, Urine Ketones Negative, Urine Blood 2+ A, Urine Nitrate Positive A, Urine Bilirubin Negative, Urine Urobilinogen 0.2, Ur Leukocyte Esterase 3+ A, Urine RBC 10-20, Urine WBC 20-50, Ur Squamous Epith Cells 10-20, Urine Bacteria 2+ 04/22/25 02:55: WBC 42.1 H*, RBC 3.87 L, Hgb 11.6 L, Hct 34.7 L, MCV 89.7, MCH 30.0, MCHC 33.4, RDW 17.2, Plt Count 342, MPV 9.6, Neut % (Auto) 71.4, Lymph % (Auto) 4.5 L, [place] % (Auto) 7.4, Eos % (Auto) 0.1, Baso % (Auto) 0.1, Neut # (Auto) 30.1 H, Lymph # (Auto) 1.9, [place] # (Auto) 3.1 H, Eos # (Auto) 0.0, Baso # (Auto) 0.1, Total Counted 100, Neutrophils % (Manual) 40 L, Band Neutrophils % 43 H, Lymphocytes % (Manual) 16, Monocytes % (Manual) 1 L, Platelet Estimate Not Reportable, RBC Morphology Not Reportable, D-Dimer 0.96 H, Sodium 138, Potassium 3.2 L, Chloride 107, Carbon Dioxide 22, Anion Gap 12.2, BUN 12, Creatinine 0.80, Estimated Creat Clear 91, Estimated GFR 72, Est GFR ( Amer) 88, Glucose 138 H, Calcium 9.4, Total Bilirubin 0.6, AST 34, ALT 42, Alkaline Phosphatase 212 H, Troponin I < 0.01, Total Protein 6.6, Albumin 4.1, Globulin 2.5, Albumin/Globulin Ratio 1.6, Procalcitonin 0.144, TSH 2.73, Free T4 1.42, HCV Ab NAVIN w/Rflx PCR Qn Negative, HIV Ag/Ab Combo Qual Negative 04/22/25 05:33: Lactate 1.7 I & O for Labs for Last 24 Hours: Intake & Output 04/19/25 04/20/25 04/21/25 04/22/25 11:59 11:59 11:59 11:59 Intake Total 1106.75 / 1106.75 Output Total 500 / 500 Balance 606.75 / 606.75 Weight 221 lb 1.978 oz Constitutional: Present no acute distress Respiratory: Present CTA bilaterally Cardiac: Present Reg Rate and Rhythm GI: Present soft; Absent distention or tenderness Extremities: Absent edema Skin: Present intact Neuro: Present alert, awake and oriented x 3 Assessment and Plan *Assessment and plan (1) Atrial fibrillation with RVR: Status: Acute Category: Medical Code(s): I48.91 - Unspecified atrial fibrillation (2) UTI (urinary tract infection): Status: Acute Category: Medical Code(s): N39.0 - Urinary tract infection, site not specified (3) Sepsis: Status: Acute Category: Medical Code(s): A41.9 - Sepsis, unspecified organism (4) Leukocytosis: Status: Acute Category: Medical Code(s): D72.829 - Elevated white blood cell count, unspecified (5) Breast cancer: Status: Acute Category: Medical Code(s): C50.919 - Malignant neoplasm of unspecified site of unspecified female breast (6) History of kidney cancer: Status: Acute Category: Medical Code(s): Z85.528 - Personal history of other malignant neoplasm of kidney Plan Will continue Zosyn pending cultures. Has been started on home dose of diltiazem. Will await culture results. Dr. Leahy entry - Saw patient, agree with above note.
[2025-04-22 08:44] LABS: Troponin I 0.02 ng/ml (0.00-0.034)
[2025-04-22] MEDS: 0.9 % SODIUM CHLORIDE 1000ML 1,000 ML 100 ML IV ×2 (09:02→18:36)
[2025-04-22] MEDS: HEPARIN SODIUM 5,000 UNIT/ML VIAL 5000 UNIT SUBCUT ×3 (09:07→21:27)
[2025-04-22] MEDS: POTASSIUM CHLORIDE 20MEQ TAB 40 MEQ PO ×2 (09:07→21:27)
--- NOTE | 2025-04-22 09:43 | HMH.PHAAMS2 ---
- Antimicrobial Stewardship Review culture & sensitivity review Stewardship interventions: culture & sensitivity review, reviewed - no change Comments: CULTURES STILL PENDING, ON ZOSYN EMPIRICALLY FOR SUSPECTED SEPSIS/UTI
[2025-04-22 09:57] LABS: Troponin I 0.02 ng/ml (0.00-0.034)
[2025-04-22] MEDS: PIPERCILLIN/TAZO 3.375 GM in 0.9 % SODIUM CHLORIDE 50 ML IV ×3 (10:59→23:48)
[2025-04-22] MEDS: LIDOCAINE 2% VISCOUS SOL 15ML UDC 5 ML PO (14:11)
[2025-04-22 18:54] LABS: Adenovirus F 40/41, stool Not Detected (NotDetected); Clostridium Difficile A/B, PCR Not Detected (NotDetected); Cyclospora Cayetanesis Not Detected (NotDetected); Plesimonas Shigalloides, PCR Not Detected (NotDetected); Salmonella, PCR Not Detected (NotDetected); Shiga-like toxin E coli Not Detected (NotDetected); Shigella Enterovasive E coli Not Detected (NotDetected); Vibrio, PCR Not Detected (NotDetected); Yersinia Entercolitica, PCR Not Detected (NotDetected)
[2025-04-23] VITALS (7 sets, daily range): BP systolic 131–159; BP diastolic 59–72; PULSE 79–95; RESP 16–20; TEMP 36.7–37.1; O2SAT 95–99; BMI 38.2
[2025-04-23] MEDS: PIPERCILLIN/TAZO 3.375 GM in 0.9 % SODIUM CHLORIDE 50 ML IV ×4 (05:09→23:03)
[2025-04-23] MEDS: 0.9 % SODIUM CHLORIDE 1000ML 1,000 ML 100 ML IV ×2 (05:10→17:59)
[2025-04-23 06:57] LABS: Hematocrit 27.7 % (37.0-47.0); Hemoglobin 8.8 g/dL (12.2-16.2); Immature Granulocytes % 14.3 %; Mean Corpuscular HGB Conc 31.8 g/dL (31.8-35.4); Mean Corpuscular Hemoglobin 29.4 pg (27.0-31.2); Mean Corpuscular Volume 92.6 fl (81-99); Nucleated Red Blood Cells % 0.4 %; Platelet Count 240 K/mm3 (142-424); Red Blood Count 2.99 M/mm3 (4.20-5.40); Red Cell Distribution Width-SD 59.7 fL
[2025-04-23 07:02] LABS: Albumin Level 3.0 g/dl (3.5-5.0); Chloride 113 mmol/L (98-107); Potassium 3.5 mmoL/L (3.5-5.1); Sodium 140 mmol/L (136-145)
[2025-04-23 07:03] LABS: White Blood Count 32.3 K/mm3 (4.8-10.8)
--- NOTE | 2025-04-23 07:04 | PC.NURSE ---
[address] Donald Soares To make him aware of WBC is 32.3 critical lab value. Which is down from yesterday. ZACARIAS TAVARES RN
[2025-04-23 07:05] LABS: Alanine Aminotransferase 24 U/L (12-78); Albumin/Globulin Ratio 1.4 (1.1-1.8); Alkaline Phosphatase 135 U/L (38-126); Anion Gap 7.5 mEq/L (5-15); Aspartate Amino Transferase 23 U/L (14-36); Bilirubin,Total 0.3 mg/dl (0.2-1.3); Blood Urea Nitrogen 9 mg/dl (7-17); Calcium 7.6 mg/dl (8.4-10.2); Carbon Dioxide 23 mmol/L (22.0-30.0); Creatinine Clearance Estimated 92 mL/min (50-200); Creatinine,Serum 1.00 mg/dl (0.52-1.04); Estimated Glomerular Filt Rate 56 ml/min (>60); GFR (African American) 68 ML/MIN (>60); Globulin 2.1 g/dL (1.3-3.2); Glucose 101 mg/dl (74-100); Magnesium 1.9 mg/dl (1.6-2.3); Phosphorous 2.9 mg/dl (2.5-4.5); Total Protein,Serum 5.1 g/dl (6.3-8.2)
[2025-04-23 07:42] LABS: RBC Morphology Normal; Total Cells Counted 100
[2025-04-23] MEDS: dilTIAZem ER 240MG CAPSULE 240 MG PO (09:07)
[2025-04-23] MEDS: HEPARIN SODIUM 5,000 UNIT/ML VIAL 5000 UNIT SUBCUT ×3 (09:07→20:13)
--- NOTE | 2025-04-23 09:30 | HMH.PHAAMS2 ---
- Antimicrobial Stewardship Review culture & sensitivity review Stewardship interventions: culture & sensitivity review (CURRENTLY RECEIVING ON ZOSYN, WBC 32.3K, AFEBRILE, GRAM NEGATIVE RODS IN URINE.)
--- NOTE | 2025-04-23 10:02 | P.PN_ITS ---
Subjective *Date: 04/23/25 *Time: 10:02 Interval history: Patient reports a rash in her right groin. Started after radiation treatment, requests treatment. Diarrhea has continued. Medical Exam Vital signs and Labs for Last 24 Hours: Vital Signs Temp Pulse Pulse Resp BP Pulse Ox O2 Del Method 04/23/25 07:59 98.1 F 86 20 156/62 H 99 Room Air 04/23/25 05:00 Room Air 04/23/25 04:00 95 H 04/23/25 04:00 98.3 F 79 16 131/63 95 Room Air 04/23/25 03:00 Room Air 04/23/25 01:00 Room Air 04/23/25 00:00 80 04/23/25 00:00 98.0 F 84 16 149/59 H 97 Room Air 04/22/25 23:00 Room Air 04/22/25 21:00 Room Air 04/22/25 20:00 Room Air 04/22/25 20:00 80 04/22/25 19:38 98.2 F 87 18 112/58 L 96 Room Air 04/22/25 18:40 Room Air 04/22/25 17:00 Room Air 04/22/25 16:00 98.3 F 78 18 134/68 96 Room Air 04/22/25 15:00 Room Air 04/22/25 13:00 Room Air 04/22/25 12:00 98.1 F 78 18 128/69 95 Room Air 04/22/25 11:00 Room Air Intake and Output 04/22/25 04/23/25 04/23/25 23:59 07:59 15:59 Intake Total 1530 / 3741.75 1275 / 1545 270 / 1545 Output Total 400 / 900 0 / 0 Balance 1130 / 2841.75 1275 / 1545 270 / 1545 Intake: Intake, Oral Amount 480 / 895 175 / 445 270 / 445 Intake, Total IV Amount 1050 / 2846.75 1100 / 1100 0.9 % Sodium Chloride 1000ML 1, 1000 / 1000 1000 / 1000 000 ml @ 100 mls/hr IV .Q10H [facility] Rx#:[id number] Pipercillin/Tazo 3.375 gm In 0. 50 / 100 100 / 100 9 % Sodium Chloride 50 ml @ 100 mls/hr IV Q6H [facility] Rx#:[id number] Output: Output, Urine Amount 400 / 900 0 / 0 Other: Number of Unmeasured Voids 2 1 Number of Bowel Movements 1 1 1 Weight 223 lb 15.834 oz Patient Weight 04/23/25 23:59 Weight 223 lb 15.834 oz Laboratory Results - last 24 hr 04/22/25 02:54: Urine Color Yellow, Urine Appearance Clear, Urine pH 6.0, Ur Specific [place] 1.010, Urine Protein 2+ A, Urine Glucose (UA) Negative, Urine Ketones Negative, Urine Blood 2+ A, Urine Nitrate Positive A, Urine Bilirubin Negative, Urine Urobilinogen 0.2, Ur Leukocyte Esterase 3+ A, Urine RBC 10-20, Urine WBC 20-50, Ur Squamous Epith Cells 10-20, Urine Bacteria 2+ 04/22/25 18:30: Stl C. cayetanensis PCR Not detected, Stool Rotavirus (PCR) Not detected, Stl Adenov F 40/41 PCR Not detected, Stool Astrovirus (PCR) Not detected, Stool Campylobacter PCR Not detected, Stl C.difficile Tox PCR Not detected, Stool Cryptosporidium PCR Not detected, Stl E.coli Shiga Tox PCR Not detected, Stool E coli O157 PCR Not detected, Stl Enterotoxigenic E PCR Not detected, Stool EPEC (PCR) Not detected, Stool EAEC (PCR) Not detected, Stl E. histolytica PCR Not detected, Stool Giardia Lamblia PCR Not detected, Stool Salmonella PCR Not detected, Stool Sapovirus (PCR) Not detected, Stl P. shigelloides PCR Not detected, Stl Shigella/EIEC PCR Not detected, St Y.enterocolitica PCR Not detected, Stool Vibrio (PCR) Not detected, Stl Vibrio cholerae PCR Not detected, Stl Norovirus GI/GII PCR Not detected 04/23/25 06:35: WBC 32.3 H*, RBC 2.99 L, Hgb 8.8 L, Hct 27.7 L, MCV 92.6, MCH 29.4, MCHC 31.8, RDW 18.1 H, Plt Count 240 D, MPV 9.0, Neut % (Auto) 75.9, Lymph % (Auto) 4.1 L, [place] % (Auto) 5.4, Eos % (Auto) 0.1, Baso % (Auto) 0.2, Neut # (Auto) 24.5 H, Lymph # (Auto) 1.3, [place] # (Auto) 1.7 H, Eos # (Auto) 0.0, Baso # (Auto) 0.1, Total Counted 100, Neutrophils % (Manual) 65, Band Neutrophils % 23.0 H, Lymphocytes % (Manual) 7 L, Monocytes % (Manual) 5, Nucleated RBCs 2, Platelet Estimate Normal, RBC Morphology Normal, Sodium 140, Potassium 3.5, Chloride 113 H, Carbon Dioxide 23, Anion Gap 7.5, BUN 9, Creatinine 1.00 D, Estimated Creat Clear 92, Estimated GFR 56 L, Est GFR (Afri can Amer) 68 D, Glucose 101 H, Calcium 7.6 L, Phosphorus 2.9, Magnesium 1.9, Total Bilirubin 0.3, AST 23 D, ALT 24 D, Alkaline Phosphatase 135 H, Total Protein 5.1 L, Albumin 3.0 L D, Globulin 2.1, Albumin/Globulin Ratio 1.4 I & O for Labs for Last 24 Hours: Intake & Output 04/20/25 04/21/25 04/22/25 04/23/25 23:59 23:59 23:59 23:59 Intake Total 3566.75 / 3741.75 1545 / 1545 Output Total 900 / 900 0 / 0 Balance 2666.75 / 2841.75 1545 / 1545 Weight 221 lb 1.978 oz 223 lb 15.834 oz Microbiology Reports for the Last 24 Hours: Microbiology 04/22/25 02:54 Urine,Clean Catch Urine Culture - Preliminary Gram Negative Rods 04/22/25 03:30 Blood Blood Culture - Preliminary NO GROWTH AFTER 24 HOURS 04/22/25 03:40 Blood Blood Culture - Preliminary NO GROWTH AFTER 24 HOURS Constitutional: Present no acute distress Respiratory: Present normal respiratory effort Cardiac: Present Reg Rate and Rhythm GI: Present normal bowel sounds; Absent tenderness Extremities: Present normal inspection and full ROM Skin: Present intact; Absent erythema Comment:: rash in the right inguinal area has about a 10 cm long by 8 cm wide area of reddened, excoriated skin with numerous small red macular satellite lesions Neuro: Present Grossly Intact and moves all extremities Assessment and Plan *Assessment and plan (1) Atrial fibrillation with RVR: Status: Acute Category: Medical Code(s): I48.91 - Unspecified atrial fibrillation (2) UTI (urinary tract infection): Status: Acute Category: Medical Code(s): N39.0 - Urinary tract infection, site not specified (3) Sepsis: Status: Acute Category: Medical Code(s): A41.9 - Sepsis, unspecified organism (4) Leukocytosis: Status: Acute Category: Medical Code(s): D72.829 - Elevated white blood cell count, unspecified (5) Breast cancer: Status: Acute Category: Medical Code(s): C50.919 - Malignant neoplasm of unspecified site of unspecified female breast (6) History of kidney cancer: Status: Acute Category: Medical Code(s): Z85.528 - Personal history of other malignant neoplasm of kidney (7) Anemia: Status: Acute Category: Medical Code(s): D64.9 - Anemia, unspecified Plan Diarrhea panel is negative, OK to start Imodium, rash in groin appears fungal, nystatin has been ordered, urine culture has growth of a gram negative jerry, plan to recheck labs tomorrow as H/H has dropped.
[2025-04-23] MEDS: NYSTATIN CREAM 30GM/TUBE TP ×3 (12:00→20:13)
[2025-04-24] VITALS (7 sets, daily range): BP systolic 137–157; BP diastolic 53–74; PULSE 79–92; RESP 16–18; TEMP 36.7–36.9; O2SAT 95–98; BMI 38.6; BMI 38.9
--- NOTE | 2025-04-24 03:53 | PC.NURSE ---
Pt AOx4. No significant changes this shift. Continually denies pain or any additional needs. Currently resting in bed with eyes closed. Respirations even and unlabored. Bed is low, locked, and call light is in reach.
[2025-04-24] MEDS: 0.9 % SODIUM CHLORIDE 1000ML 1,000 ML 100 ML IV (04:02)
[2025-04-24] MEDS: PIPERCILLIN/TAZO 3.375 GM in 0.9 % SODIUM CHLORIDE 50 ML IV ×2 (04:03→12:09)
[2025-04-24 05:54] LABS: Hematocrit 27.8 % (37.0-47.0); Hemoglobin 8.7 g/dL (12.2-16.2); Immature Granulocytes % 12.5 %; Mean Corpuscular HGB Conc 31.3 g/dL (31.8-35.4); Mean Corpuscular Hemoglobin 29.0 pg (27.0-31.2); Mean Corpuscular Volume 92.7 fl (81-99); Nucleated Red Blood Cells % 0.4 %; Platelet Count 208 K/mm3 (142-424); Red Blood Count 3.00 M/mm3 (4.20-5.40); Red Cell Distribution Width-SD 61.1 fL; White Blood Count 24.4 K/mm3 (4.8-10.8)
[2025-04-24 06:01] LABS: Chloride 114 mmol/L (98-107); Sodium 139 mmol/L (136-145)
[2025-04-24 06:04] LABS: Blood Urea Nitrogen 6 mg/dl (7-17); Creatinine Clearance Estimated 93 mL/min (50-200); Creatinine,Serum 0.80 mg/dl (0.52-1.04); Estimated Glomerular Filt Rate 72 ml/min (>60); GFR (African American) 88 ML/MIN (>60)
[2025-04-24 06:05] LABS: Anion Gap 5.9 mEq/L (5-15); Calcium 8.0 mg/dl (8.4-10.2); Carbon Dioxide 22 mmol/L (22.0-30.0); Glucose 94 mg/dl (74-100)
[2025-04-24 06:15] LABS: Potassium 2.9 mmoL/L (3.5-5.1)
--- NOTE | 2025-04-24 06:26 | EXP.EVENT.NO ---
K3.9 this morning. Wrote for KCl K rider IV 10 mEq every hour apart x 3 and KCl 40 mEq oral every 4 hours x 2 doses. Also wrote to recheck potassium at 1300.
[2025-04-24] MEDS: POTASSIUM CHLORIDE 20MEQ TAB 40 MEQ PO ×2 (06:38→10:17)
[2025-04-24 06:41] LABS: Magnesium 1.8 mg/dl (1.6-2.3)
[2025-04-24 07:30] LABS: RBC Morphology Normal; Total Cells Counted 100
--- NOTE | 2025-04-24 08:37 | P.PN_ITS ---
Subjective *Date: 04/24/25 *Time: 08:37 Interval history: Patient with no new complaints today. Medical Exam Vital signs and Labs for Last 24 Hours: Vital Signs Temp Pulse Pulse Resp BP Pulse Ox O2 Del Method 04/24/25 08:02 Room Air 04/24/25 08:00 98.4 F 85 17 145/73 H 97 Room Air 04/24/25 08:00 Room Air 04/24/25 06:25 Room Air 04/24/25 05:00 Room Air 04/24/25 04:00 98.0 F 79 16 139/68 95 Room Air 04/24/25 04:00 80 04/24/25 03:00 Room Air 04/24/25 01:00 Room Air 04/24/25 00:00 85 04/24/25 00:00 98.0 F 81 18 137/53 L 98 Room Air 04/23/25 23:00 Room Air 04/23/25 21:00 Room Air 04/23/25 20:00 85 04/23/25 20:00 98.7 F 79 18 141/62 H 98 Room Air 04/23/25 20:00 Room Air 04/23/25 19:00 Room Air 04/23/25 17:00 Room Air 04/23/25 16:00 81 04/23/25 16:00 98.3 F 86 18 159/72 H 97 Room Air 04/23/25 15:00 Room Air 04/23/25 13:00 Room Air 04/23/25 11:58 98.0 F 84 18 151/72 H 97 Room Air Intake and Output 04/23/25 04/24/25 04/24/25 23:59 07:59 15:59 Intake Total 460 / 3475 1000 / 1000 Output Total 150 / 150 0 / 0 Balance 310 / 3325 1000 / 1000 Intake: Intake, Oral Amount 360 / 1225 Intake, Total IV Amount 100 / 2250 1000 / 1000 0.9 % Sodium Chloride 1000ML 1, 1000 / 1000 000 ml @ 100 mls/hr IV .Q10H [facility] Rx#:[id number] Pipercillin/Tazo 3.375 gm In 0. 100 / 250 9 % Sodium Chloride 50 ml @ 100 mls/hr IV Q6H [facility] Rx#:[id number] Output: Output, Urine Amount 150 / 150 0 / 0 Other: Number of Unmeasured Voids 0 2 Number of Bowel Movements 1 Weight 226 lb 1.6 oz Patient Weight 04/24/25 23:59 Weight 226 lb 1.6 oz Laboratory Results - last 24 hr 04/24/25 05:30: WBC 24.4 H*, RBC 3.00 L, Hgb 8.7 L, Hct 27.8 L, MCV 92.7, MCH 29.0, MCHC 31.3 L, RDW 18.3 H, Plt Count 208, MPV 9.3, Neut % (Auto) 76.7, Lymph % (Auto) 5.6 L, [place] % (Auto) 4.5, Eos % (Auto) 0.1, Baso % (Auto) 0.6, Neut # (Auto) 18.7 H, Lymph # (Auto) 1.4, [place] # (Auto) 1.1 H, Eos # (Auto) 0.0, Baso # (Auto) 0.2, Total Counted 100, Neutrophils % (Manual) 81 H, Lymphocytes % (Manual) 15, Atypical Lymphs % 3.0, Monocytes % (Manual) 1 L, Platelet Estimate Normal, RBC Morphology Normal, Sodium 139, Potassium 2.9 L*, Chloride 114 H, Carbon Dioxide 22, Anion Gap 5.9, BUN 6 L D, Creatinine 0.80, Estimated Creat Clear 93, Estimated GFR 72, Est GFR ( Amer) 88 D, Glucose 94, Calcium 8.0 L, Magnesium 1.8 I & O for Labs for Last 24 Hours: Intake & Output 04/21/25 04/22/25 04/23/25 04/24/25 23:59 23:59 23:59 23:59 Intake Total 3566.75 / 3741.75 3475 / 3475 1000 / 1000 Output Total 900 / 900 150 / 150 0 / 0 Balance 2666.75 / 2841.75 3325 / 3325 1000 / 1000 Weight 221 lb 1.978 oz 223 lb 15.834 oz 226 lb 1.6 oz Microbiology Reports for the Last 24 Hours: Microbiology 04/22/25 06:09 Rectum CRE Surveillance Culture - Final Negative 04/22/25 03:30 Blood Blood Culture - Preliminary NO GROWTH AFTER 48 HOURS 04/22/25 03:40 Blood Blood Culture - Preliminary NO GROWTH AFTER 48 HOURS 04/22/25 02:54 Urine,Clean Catch Urine Culture - Preliminary Gram Negative Rods Constitutional: Present no acute distress Respiratory: Present normal respiratory effort Cardiac: Present Reg Rate and Rhythm GI: Present normal bowel sounds; Absent tenderness Extremities: Present normal inspection and full ROM Neuro: Present Grossly Intact and moves all extremities Assessment and Plan *Assessment and plan (1) Atrial fibrillation with RVR: Status: Acute Category: Medical Code(s): I48.91 - Unspecified atrial fibrillation (2) UTI (urinary tract infection): Status: Acute Category: Medical Code(s): N39.0 - Urinary tract infection, site not specified (3) Sepsis: Status: Acute Category: Medical Code(s): A41.9 - Sepsis, unspecified organism (4) Leukocytosis: Status: Acute Category: Medical Code(s): D72.829 - Elevated white blood cell count, unspecified (5) Breast cancer: Status: Acute Category: Medical Code(s): C50.919 - Malignant neoplasm of unspecified site of unspecified female breast (6) History of kidney cancer: Status: Acute Category: Medical Code(s): Z85.528 - Personal history of other malignant neoplasm of kidney (7) Anemia: Status: Acute Category: Medical Code(s): D64.9 - Anemia, unspecified (8) Hypokalemia: Status: Acute Category: Medical Code(s): E87.6 - Hypokalemia Plan Potassium replacement has been ordered, H/H has stabilized, still do not have any new results on the urine culture. Cont. Zosyn.
[2025-04-24] MEDS: dilTIAZem ER 240MG CAPSULE 240 MG PO (08:53)
[2025-04-24] MEDS: NYSTATIN CREAM 30GM/TUBE TP (08:56)
--- NOTE | 2025-04-24 10:25 | EXP.CARD.CON ---
History of Present Illness History of Present Illness Consult date: 04/24/25 Requesting physician: Wilson Leahy Consult reason: atrial fibrillation Chief complaint: palps History of present illness: 64-year-old white female with a history of paroxysmal atrial fibrillation diagnosed 10 years ago. States she has been asymptomatic and not on anticoagulation due to frequent bleeding issues and more recently her oncologist recommended she stop home dose aspirin due to the chemotherapy so unclear if anticoagulation would be okay. In the interim she has developed metastatic breast cancer and is currently on multiple chemotherapy agents. Presented here to the ER complaining of severe palpitations and shortness of breath. On arrival she was found to be in A-fib RVR 150s and have a UTI with white blood cell count 42,000. Patient was started on Cardizem and converted quickly to sinus rhythm. She was resumed on her home dose Cardizem and has been stable since then. Patient states she has no other known CV issues. She is not able to follow-up outpatient stating she does not have insurance and does not qualify for Medicaid. [facility] Disclaimer: The information contained in this section may have been updated after the patient was seen, as this information can be updated by other users. Medical History Atrial fibrillation with RVR Breast cancer History of kidney cancer Social History Smoking Status: Never smoker alcohol intake: never current occupational status: other Travel in the last 8 weeks?: None Review of Systems Constitutional Constitutional: Denies fatigue and Denies weakness Eyes Eyes: Denies loss of vision ENT Ears, Nose, Mouth, and Throat: Denies hearing loss and Denies vertigo *Cardiovascular Cardiovascular: Denies chest pain, Denies dyspnea and Denies syncope *Respiratory Respiratory: Denies cough and Denies dyspnea *Gastrointestinal Gastrointestinal: Denies change in stool character, Denies nausea and Denies vomiting *Musculoskeletal Musculoskeletal: Denies muscle weakness Integumentary/Breasts Skin/Breast: Denies changing lesions *Neurologic Neurologic: Denies loss of vision, Denies syncope, Denies vertigo and Denies weakness Endocrine Endocrine: Denies fatigue Exam Data for Last 24 hours Vital signs and Labs for Last 24 Hours: Temp Pulse Resp BP Pulse Ox O2 Del Method 98.4 F 85 17 145/73 H 97 Room Air 04/24/25 08:00 04/24/25 08:00 04/24/25 08:00 04/24/25 08:00 04/24/25 08:00 04/24/25 08:02 Laboratory Results - last 24 hr 04/24/25 05:30: WBC 24.4 H*, RBC 3.00 L, Hgb 8.7 L, Hct 27.8 L, MCV 92.7, MCH 29.0, MCHC 31.3 L, RDW 18.3 H, Plt Count 208, MPV 9.3, Neut % (Auto) 76.7, Lymph % (Auto) 5.6 L, [place] % (Auto) 4.5, Eos % (Auto) 0.1, Baso % (Auto) 0.6, Neut # (Auto) 18.7 H, Lymph # (Auto) 1.4, [place] # (Auto) 1.1 H, Eos # (Auto) 0.0, Baso # (Auto) 0.2, Total Counted 100, Neutrophils % (Manual) 81 H, Lymphocytes % (Manual) 15, Atypical Lymphs % 3.0, Monocytes % (Manual) 1 L, Platelet Estimate Normal, RBC Morphology Normal, Sodium 139, Potassium 2.9 L*, Chloride 114 H, Carbon Dioxide 22, Anion Gap 5.9, BUN 6 L D, Creatinine 0.80, Estimated Creat Clear 93, Estimated GFR 72, Est GFR ( Amer) 88 D, Glucose 94, Calcium 8.0 L, Magnesium 1.8 I & O for Last 24 hours: Intake & Output 04/21/25 04/22/25 04/23/25 04/24/25 23:59 23:59 23:59 23:59 Intake Total 3566.75 / 3741.75 3475 / 3475 1220 / 1220 Output Total 900 / 900 150 / 150 0 / 0 Balance 2666.75 / 2841.75 3325 / 3325 1220 / 1220 Weight 221 lb 1.978 oz 223 lb 15.834 oz 226 lb 1.6 oz Microbiology Reports for the Last 24 Hours: Microbiology 04/22/25 02:54 Urine,Clean Catch Urine Culture - Final Escherichia coli 04/22/25 06:09 Rectum CRE Surveillance Culture - Final Negative 04/22/25 03:30 Blood Blood Culture - Preliminary NO GROWTH AFTER 48 HOURS 04/22/25 03:40 Blood Blood Culture - Preliminary NO GROWTH AFTER 48 HOURS Constitutional Constitutional: no acute distress and cooperative Comments: Hair loss from acute *Routine HEENT Exam Eye: Present PERRL *Routine Respiratory Exam Respiratory: Present CTA bilaterally; Absent accessory muscle use, wheezes or crackles *Routine Cardiovascular Exam Cardiovascular: Present RRR, Normal S1 and Normal S2; Absent murmur, gallop or rubs *Routine Abdominal Exam Abdominal: Present soft; Absent tenderness *Routine Extremities Exam Extremities: Present pulses intact; Absent cyanosis or edema *Routine Skin Exam Skin: Present intact; Absent erythema or wounds *Routine Neurological Exam Neurological: Present alert and oriented X3 Routine Psychiatric Exam Psychiatric: Present cooperative Meds Home Medications and Allergies Home Medications ?Medication ?Instructions ?Recorded ?Confirmed ?Type atorvastatin 40 mg tablet 40 mg PO DAILY 04/22/25 04/22/25 History diltiazem HCl 240 mg 240 mg PO DAILY 04/22/25 04/22/25 History capsule,extended release 24 hr, controlled (DILT-XR) lisinopril 20 mg tablet 20 mg PO DAILY 04/22/25 04/22/25 History New Prescriptions to Start Prescriptions: Allergies Allergy/AdvReac Type Severity Reaction Status Date / Time No Known Allergies Allergy Verified 04/22/25 03:03 Assessment and Plan *Assessment and plan (1) Atrial fibrillation with RVR: Status: Acute Category: Medical Code(s): I48.91 - Unspecified atrial fibrillation (2) UTI (urinary tract infection): Status: Acute Category: Medical Code(s): N39.0 - Urinary tract infection, site not specified Plan A-fib RVR - Known diagnosis, acute exacerbation in setting of UTI and immunocompromise state - Improved with rate control and hydration - Continue home dose Cardizem - She will check with her oncologist about whether she can resume low-dose anticoagulation - Continue to monitor at home. We are happy to see patient in the office. She has no insurance denied recommended she discuss with nurse case management here about making arrangements UTI - Improving on antibiotic Metastatic breast cancer - Numerous chemotherapy agents - Followed by Oncology
[2025-04-24 13:03] LABS: Potassium 3.9 mmoL/L (3.5-5.1)
--- NOTE | 2025-04-24 13:36 | CARE MANAGER ---
Notified Dr. Leahy that sensitivities were back on patient's urine and it is pansensitive
[2025-04-25] VITALS: PULSE 82
[2025-04-25 04:00] VITALS: BP 162/76; PULSE 88; PULSE 90; RESP 20; TEMP 36.9; O2SAT 98; BMI 38.7
--- NOTE | 2025-04-25 04:00 | PC.NURSE ---
Patient is pleasantly alert and oriented x4. She was observed to be resting in bed with eyes closed, respirations even and unlabored on room air, and no apparent distress throughout the majority of the night. Patient has not had any complaints of heart palpitations or chest pain this shift. No reports of significant pain. On telemetry. No frequent, loose bowel movements this shift; has Imodium standing order in [facility] as needed (last dose was given at 18:12 yesterday). She ambulates independently in her room without difficulty. Utilizes the bedside commode for elimination needs. Physical assessment (see nursing shift biophysical intervention). History of malignancy, undergoing chemotherapy. Port to left upper chest remains accessed. Excoriation noted to right side of abdomen underneath abdominal pannus; Nystatin cream application due at 21:00 this shift was refused. Patient does report soreness within the raw area. A new ABD pad was applied to this area to aid with keeping it dry. Electrolyte replacement protocol as directed. At this time, the patient remains resting in bed with no new needs vocalized. No acute changes noted thus far. Call light within reach.
[2025-04-25 06:50] LABS: Hematocrit 28.3 % (37.0-47.0); Hemoglobin 9.2 g/dL (12.2-16.2); Immature Granulocytes % 11.6 %; Mean Corpuscular HGB Conc 32.5 g/dL (31.8-35.4); Mean Corpuscular Hemoglobin 29.7 pg (27.0-31.2); Mean Corpuscular Volume 91.3 fl (81-99); Nucleated Red Blood Cells % 0.4 %; Platelet Count 185 K/mm3 (142-424); Red Blood Count 3.10 M/mm3 (4.20-5.40); Red Cell Distribution Width-SD 60.6 fL; White Blood Count 19.3 K/mm3 (4.8-10.8)
[2025-04-25 07:08] LABS: Chloride 113 mmol/L (98-107); Potassium 3.2 mmoL/L (3.5-5.1); Sodium 140 mmol/L (136-145)
[2025-04-25 07:11] LABS: Anion Gap 8.2 mEq/L (5-15); Blood Urea Nitrogen 4 mg/dl (7-17); Calcium 8.8 mg/dl (8.4-10.2); Carbon Dioxide 22 mmol/L (22.0-30.0); Creatinine Clearance Estimated 93 mL/min (50-200); Creatinine,Serum 0.70 mg/dl (0.52-1.04); Estimated Glomerular Filt Rate 85 ml/min (>60); GFR (African American) 102 ML/MIN (>60); Glucose 91 mg/dl (74-100)
[2025-04-25 08:00] VITALS: BP 153/73; PULSE 120; PULSE 87; RESP 20; TEMP 36.8; O2SAT 97
[2025-04-25] MEDS: dilTIAZem ER 240MG CAPSULE 240 MG PO (08:15)
[2025-04-25] MEDS: NYSTATIN CREAM 30GM/TUBE TP (08:15)
[2025-04-25 08:43] LABS: RBC Morphology Normal; Total Cells Counted 100
--- NOTE | 2025-04-25 09:56 | EXP.ACUTE.PN ---
Subjective *Date: 04/25/25 *Time: 09:56 Interval history: Patient feels better, wants to go home, still having some diarrhea. Medical Exam Vital signs and Labs for Last 24 Hours: Vital Signs Temp Pulse Pulse Pulse Resp BP Pulse Ox 04/25/25 08:00 04/25/25 08:00 98.3 F 87 20 153/73 H 97 04/25/25 07:00 04/25/25 05:00 04/25/25 04:00 90 04/25/25 04:00 98.4 F 88 20 162/76 H 98 04/25/25 03:00 04/25/25 01:00 04/25/25 00:00 82 04/24/25 23:46 98.3 F 86 18 155/73 H 98 04/24/25 23:00 04/24/25 21:00 04/24/25 20:00 92 H 04/24/25 20:00 04/24/25 20:00 98.3 F 91 H 18 140/68 98 04/24/25 18:38 04/24/25 17:00 04/24/25 16:00 83 04/24/25 16:00 98.3 F 83 16 157/74 H 98 04/24/25 15:00 04/24/25 13:00 04/24/25 12:00 88 04/24/25 12:00 98.2 F 86 16 143/61 H 98 04/24/25 11:00 O2 Del Method 04/25/25 08:00 Room Air 04/25/25 08:00 Room Air 04/25/25 07:00 Room Air 04/25/25 05:00 Room Air 04/25/25 04:00 04/25/25 04:00 Room Air 04/25/25 03:00 Room Air 04/25/25 01:00 Room Air 04/25/25 00:00 04/24/25 23:46 Room Air 04/24/25 23:00 Room Air 04/24/25 21:00 Room Air 04/24/25 20:00 04/24/25 20:00 Room Air 04/24/25 20:00 Room Air 04/24/25 18:38 Room Air 04/24/25 17:00 Room Air 04/24/25 16:00 04/24/25 16:00 Room Air 04/24/25 15:00 Room Air 04/24/25 13:00 Room Air 04/24/25 12:00 04/24/25 12:00 Room Air 04/24/25 11:00 Room Air Intake and Output 04/24/25 04/25/25 04/25/25 23:59 07:59 15:59 Intake Total 220 / 2881.333 118 / 358 240 / 358 Output Total 0 / 0 0 / 0 0 / 0 Balance 220 / 2881.333 118 / 358 240 / 358 Intake: Intake, Oral Amount 220 / 578 118 / 358 240 / 358 Output: Output, Urine Amount 0 / 0 0 / 0 0 / 0 Other: Number of Unmeasured Voids 1 1 1 Number of Bowel Movements 1 1 Weight 226 lb 11.2 oz Patient Weight 04/25/25 23:59 Weight 226 lb 11.2 oz Laboratory Results - last 24 hr 04/24/25 12:52: Potassium 3.9 D 04/25/25 06:45: WBC 19.3 H, RBC 3.10 L, Hgb 9.2 L, Hct 28.3 L, MCV 91.3, MCH 29.7, MCHC 32.5, RDW 18.4 H, Plt Count 185, MPV 8.6, Neut % (Auto) 78.2, Lymph % (Auto) 5.8 L, [place] % (Auto) 3.5, Eos % (Auto) 0.2, Baso % (Auto) 0.7, Neut # (Auto) 15.1 H, Lymph # (Auto) 1.1, [place] # (Auto) 0.7, Eos # (Auto) 0.0, Baso # (Auto) 0.1, Total Counted 100, Neutrophils % (Manual) 82 H, Lymphocytes % (Manual) 13, Monocytes % (Manual) 5, Platelet Estimate Normal, RBC Morphology Normal, Sodium 140, Potassium 3.2 L, Chloride 113 H, Carbon Dioxide 22, Anion Gap 8.2, BUN 4 L D, Creatinine 0.70, Estimated Creat Clear 93, Estimated GFR 85, Est GFR ( Amer) 102, Glucose 91, Calcium 8.8 I & O for Labs for Last 24 Hours: Intake & Output 04/22/25 04/23/25 04/24/25 04/25/25 23:59 23:59 23:59 23:59 Intake Total 3566.75 / 3741.75 3475 / 3475 2763.333 / 2881.333 358 / 358 Output Total 900 / 900 150 / 150 0 / 0 0 / 0 Balance 2666.75 / 2841.75 3325 / 3325 2763.333 / 2881.333 358 / 358 Weight 221 lb 1.978 oz 223 lb 15.834 oz 228 lb 8 oz 226 lb 11.2 oz Microbiology Reports for the Last 24 Hours: Microbiology 04/22/25 02:54 Urine,Clean Catch Urine Culture - Final Escherichia coli 04/22/25 06:09 Rectum CRE Surveillance Culture - Final Negative Constitutional: Present no acute distress Respiratory: Present normal respiratory effort Cardiac: Present Reg Rate and Rhythm GI: Present normal bowel sounds; Absent tenderness Extremities: Present normal inspection and full ROM Neuro: Present Grossly Intact and moves all extremities Assessment and Plan *Assessment and plan (1) Atrial fibrillation with RVR: Status: Acute Category: Medical Code(s): I48.91 - Unspecified atrial fibrillation (2) UTI (urinary tract infection): Status: Acute Category: Medical Code(s): N39.0 - Urinary tract infection, site not specified (3) Sepsis: Status: Acute Category: Medical Code(s): A41.9 - Sepsis, unspecified organism (4) Leukocytosis: Status: Acute Category: Medical Code(s): D72.829 - Elevated white blood cell count, unspecified (5) Breast cancer: Status: Acute Category: Medical Code(s): C50.919 - Malignant neoplasm of unspecified site of unspecified female breast (6) History of kidney cancer: Status: Acute Category: Medical Code(s): Z85.528 - Personal history of other malignant neoplasm of kidney (7) Anemia: Status: Acute Category: Medical Code(s): D64.9 - Anemia, unspecified (8) Hypokalemia: Status: Acute Category: Medical Code(s): E87.6 - Hypokalemia Plan Urine culture showed webb sensitive E. coli. Change antibiotic to Levaquin last night. OK to discharge home today.
[2025-04-25] MEDS: POTASSIUM CHLORIDE 20MEQ TAB 40 MEQ PO (10:55)
--- NOTE | 2025-04-26 01:07 | EXP.DC.SUM ---
General Admission date:: 04/22/25 Discharge date: 04/25/25 HPI HPI HPI: 64-year-old with history of metastatic breast cancer on chemotherapy presents with palpitations and leukocytosis. Patient states that last chemotherapy occurred 10 days ago at [facility]. Patient attempted to sleep overnight, and awoken by palpitations. Patient then had her bring her to the hospital for evaluation. Patient's heart rate 150s in the emergency room. WBC 42.1, UA positive for nitrates, +3 leuk esterase, +2 bacteria in emergency room. Denies fevers, chills, known sick contacts, recent travel, falls, accidents, dysuria, dizziness, new shortness of breath, chest pain, abdominal pain, GI bleeding, headaches. Patient's accompanied patient to the hospital and collaborates the story. States at baseline she has 1 kidney. States last episode of A-fib with RVR occurred 10 years ago. Discontinued Xarelto 9 years ago secondary to GI bleeding issues. States she underwent nephrectomy after recurrent lithotripsy causing irreparable kidney damage. Patient's vital signs 113/59?HR 144-97% on room air?RR 16 during my evaluation emergency room. Hospital Course Hospital Course Hospital Course: The patient was started on Zosyn and sepsis protocol. She was given diltiazem IV in the emergency room and then started on a Cardizem drip. She was admitted to the ICU. She had been taking Bactrim at home for UTI and stopped it after a few days because she was feeling better. It was felt her sepsis was due to UTI. She did convert to normal sinus rhythm and was able to be taken off of the Cardizem drip and started on her home dose of diltiazem. She was continued on Zosyn pending cultures. She began having diarrhea. The diarrhea panel was negative and she was started on Imodium. She developed a rash in the groin that appeared fungal, therefore nystatin was ordered. Her potassium was low and was replaced. Her H&H stabilized. She was seen by cardiology and they recommended to continue her home dose of Cardizem. They wanted her to check with her oncologist about whether she could resume low-dose anticoagulation. By 04/25/2025, she was feeling better and wanted to go home. Her urine culture showed pansensitive E. coli. She was discharged home on Levaquin. Exam Data for Last 24 hours Vital signs and Labs for Last 24 Hours: Temp Pulse Resp BP Pulse Ox O2 Del Method 98.3 F 87 20 153/73 H 97 Room Air 04/25/25 08:00 04/25/25 08:00 04/25/25 08:00 04/25/25 08:00 04/25/25 08:00 04/25/25 09:00 Laboratory Results - last 24 hr 04/25/25 06:45: WBC 19.3 H, RBC 3.10 L, Hgb 9.2 L, Hct 28.3 L, MCV 91.3, MCH 29.7, MCHC 32.5, RDW 18.4 H, Plt Count 185, MPV 8.6, Neut % (Auto) 78.2, Lymph % (Auto) 5.8 L, [place] % (Auto) 3.5, Eos % (Auto) 0.2, Baso % (Auto) 0.7, Neut # (Auto) 15.1 H, Lymph # (Auto) 1.1, [place] # (Auto) 0.7, Eos # (Auto) 0.0, Baso # (Auto) 0.1, Total Counted 100, Neutrophils % (Manual) 82 H, Lymphocytes % (Manual) 13, Monocytes % (Manual) 5, Platelet Estimate Normal, RBC Morphology Normal, Sodium 140, Potassium 3.2 L, Chloride 113 H, Carbon Dioxide 22, Anion Gap 8.2, BUN 4 L D, Creatinine 0.70, Estimated Creat Clear 93, Estimated GFR 85, Est GFR ( Amer) 102, Glucose 91, Calcium 8.8 I & O for Last 24 hours: Intake & Output 04/23/25 04/24/25 04/25/25 04/26/25 11:59 11:59 11:59 11:59 Intake Total 3075 / 3075 3400 / 3400 1651.333 / 1651.333 Output Total 400 / 400 150 / 150 0 / 0 Balance 2675 / 2675 3250 / 3250 1651.333 / 1651.333 Weight 223 lb 15.834 oz 226 lb 1.6 oz 226 lb 11.2 oz Narrative: *Routine HEENT Exam Head: Present normocephalic Eye: Present EOMI ENT: Present mucous membranes dry *Routine Neck Exam Neck: Present supple and full ROM *Routine Respiratory Exam Respiratory: Present accessory muscle use and CTA bilaterally *Routine Cardiovascular Exam Cardiovascular: Present irregularly irregular *Routine Abdominal Exam Abdominal: Present soft and normoactive bowel sounds *Routine Rectal Exam Rectal:: deferred *Routine Genitalia Exam Genitalia:: deferred *Routine Extremities Exam Extremities: Present full ROM and normal capillary refill Routine Back/Spine/Pelvis Exam Back/Spine: Present full ROM *Routine Skin Exam Skin: Present intact *Routine Neurological Exam Neurological: Present alert and oriented X3 Results Data Completed and Pending Labs on day of discharge: Labs from last 24 hours 04/25/25 06:45 WBC 19.3 H RBC 3.10 L Hgb 9.2 L Hct 28.3 L MCV 91.3 MCH 29.7 MCHC 32.5 RDW 18.4 H Plt Count 185 MPV 8.6 Neut % (Auto) 78.2 Lymph % (Auto) 5.8 L [place] % (Auto) 3.5 Eos % (Auto) 0.2 Baso % (Auto) 0.7 Neut # (Auto) 15.1 H Lymph # (Auto) 1.1 [place] # (Auto) 0.7 Eos # (Auto) 0.0 Baso # (Auto) 0.1 Total Counted 100 Neutrophils % (Manual) 82 H Lymphocytes % (Manual) 13 Monocytes % (Manual) 5 Platelet Estimate Normal RBC Morphology Normal Sodium 140 Potassium 3.2 L Chloride 113 H Carbon Dioxide 22 Anion Gap 8.2 BUN 4 L D Creatinine 0.70 Estimated Creat Clear 93 Estimated GFR 85 Est GFR ( Amer) 102 Glucose 91 Calcium 8.8 Preliminary micro results at discharge 04/22/25 03:30 Blood Culture - Preliminary Blood NO GROWTH AFTER 48 HOURS 04/22/25 03:40 Blood Culture - Preliminary Blood NO GROWTH AFTER 48 HOURS DS: Diagnosis Discharge Diagnosis (1) Atrial fibrillation with RVR: Status: Acute Code(s): I48.91 - Unspecified atrial fibrillation (2) UTI (urinary tract infection): Status: Acute Code(s): N39.0 - Urinary tract infection, site not specified (3) Sepsis: Status: Acute Code(s): A41.9 - Sepsis, unspecified organism (4) Leukocytosis: Status: Acute Code(s): D72.829 - Elevated white blood cell count, unspecified (5) Breast cancer: Status: Acute Code(s): C50.919 - Malignant neoplasm of unspecified site of unspecified female breast (6) History of kidney cancer: Status: Acute Code(s): Z85.528 - Personal history of other malignant neoplasm of kidney (7) Anemia: Status: Acute Code(s): D64.9 - Anemia, unspecified (8) Hypokalemia: Status: Acute Code(s): E87.6 - Hypokalemia Meds Home Medications and Allergies Home Medications ?Medication ?Instructions ?Recorded ?Confirmed ?Type atorvastatin 40 mg tablet 40 mg PO DAILY 04/22/25 04/22/25 History diltiazem HCl 240 mg 240 mg PO DAILY 04/22/25 04/22/25 History capsule,extended release 24 hr, controlled (DILT-XR) lisinopril 20 mg tablet 20 mg PO DAILY 04/22/25 04/22/25 History levofloxacin 500 mg tablet 500 mg PO DAILY 7 days #7 tabs 04/25/25 Rx nystatin 100,000 unit/gram topical 1 applic topical TID #30 grams 04/25/25 Rx cream potassium chloride 10 mEq 10 meq PO DAILY #30 caps 04/25/25 Rx capsule,extended release New Prescriptions to Start Prescriptions: levofloxacin Wilson Leahy nystatin Tosin,Wilson potassium chloride Wilson Leahy Allergies Allergy/AdvReac Type Severity Reaction Status Date / Time No Known Allergies Allergy Verified 04/22/25 03:03 Discharge Plan Disposition Patient Disposition: Home, Self-Care Condition: Fair Discharge Order Discharge Orders: Discharge Order (Routine); Ordered 04/25/25 Ordered By: Wilson Leahy Follow up Plan Follow up with: Wilson Leahy MD [Primary Care Provider, Medical] - 05/15/25 Prescriptions/Medication Reconciliation: New nystatin 100,000 unit/gram cream 1 applic topical TID Qty: 30 1RF potassium chloride 10 mEq capsule, extended release 10 meq PO DAILY Qty: 30 0RF levofloxacin 500 mg tablet 500 mg PO DAILY 7 Days Qty: 7 0RF Continued atorvastatin 40 mg tablet 40 mg PO DAILY diltiazem HCl [DILT-XR] 240 mg capsule,ext.rel 24h degradable 240 mg PO DAILY lisinopril 20 mg tablet 20 mg PO DAILY Problem Reconciliation Problems Reviewed?: Yes Patient Discharge Instructions ACTIVITY: Ambulate as tolerated DIET: continue same diet Patient Instructions: DI for Atrial Fibrillation, DI for Urinary Tract Infection (UTI), DI for Sepsis in Adults, DI for Leukocytosis, Stop Light Infection Print Language: German Providers Primary Care Provider: Wilson Leahy Admit Provider: Alexis Green Attending Provider: Wilson Leahy
--- NOTE | 2025-04-27 10:17 | SW/DCPLANNER ---
Spoke with patient on the phone. Patient stated that she is doing well. Patient stated that she is aware of her upcoming appointments. 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 Patient stated that she has no concerns or questions at this time. Ty Fonseca
== END 2025-04-25 11:30 | disposition home or self-care (01) | DRG 872 ==
LOC: ER 04:52 → 2ND 08:23
PROVIDERS: Internal Medicine; Admitting Provider Internal Medicine Adolescent Medicine; Emergency Provider Emergency Medicine; PCP Family Medicine; Visit Provider Family Medicine
DX: A41.9 Sepsis, unspecified organism (principal); N39.0 Urinary tract infection, site not specified; C79.51 Secondary malignant neoplasm of bone; C50.919 Malignant neoplasm of unspecified site of unspecified female breast; Z85.528 Personal history of other malignant neoplasm of kidney; E87.6 Hypokalemia; Z90.5 Acquired absence of kidney; I10 Essential (primary) hypertension; R21 Rash and other nonspecific skin eruption; R19.7 Diarrhea, unspecified; I48.0 Paroxysmal atrial fibrillation; B96.20 Unspecified Escherichia coli [E. coli] as the cause of diseases classified elsewhere; D63.0 Anemia in neoplastic disease
CPT/HCPCS: 36415; 71045; 80048; 80053; 81001; 83605; 83735; 84100; 84132; 84145; 84439; 84443; 84484; 85007; 85025; 85378; 86803; 87040; 87081; 87086; 87088; 87186; 87389; 87507; 93005; 99285; J1163; J1642; J1644; J1650; J2543; J3480; J7030; J7120